=== PATIENT | male | born 1950 | race Caucasian/White ===

== ENCOUNTER 2017-12-30 21:53 | Emergency (ER) | payer OTHER, MEDICARE ==
--- OUTSIDE RECORDS SUMMARY | 2017-12-30 21:55 | XMS REPORT | Clinical Summary ---
:1950 Author Organization [facility] Address [address] [place] [address] Phone Care Team Providers Name Role Phone Unavailable Primary Care Provider Unavailable Allergies Active Allergy Reactions Severity Noted Date Comments Amantadine Analogues Other (See Comments) 12/07/2016 seizure Metronidazole Other (See Comments) 12/07/2016 hallucinations Current Medications Prescription Sig. Disp. Refills Start Date End Date Status albuterol (PROVENTIL) Take 2.5 mg by Active 2.5 mg /3 mL (0.083 %) nebulization every 6 nebulizer solution (six) hours as needed for Wheezing. bisacodyl (DULCOLAX, Place 10 mg rectally Active BISACODYL,) 10 mg daily. suppository carBAMazepine Take 400 mg by mouth 2 Active (TEGRETOL) 200 mg (two) times daily . tablet cetirizine (ZYRTEC) 5 Take 5 mg by mouth Active MG tablet daily. cyanocobalamin Inject 1,000 mcg Active (VITAMIN B-12) 1,000 intramuscularly once. mcg/mL injection finasteride (PROSCAR) Take 5 mg by mouth Active 5 mg tablet daily. gabapentin (NEURONTIN) Take 600 mg by mouth 2 Active 600 MG tablet (two) times daily With breakfast and lunch . gabapentin (NEURONTIN) Take 900 mg by mouth Active 300 MG capsule every evening With dinner and at bedtime. . ibuprofen Take 800 mg by mouth Active (ADVIL,MOTRIN) 800 MG every 8 (eight) hours tablet as needed for Pain. latanoprost (XALATAN) 1 drop nightly. Active 0.005 % ophthalmic solution levothyroxine Take 25 mcg by mouth Active (SYNTHROID, Every morning on an LEVOTHROID) 25 MCG empty stomach. tablet metoprolol (TOPROL-XL) Take 50 mg by mouth Active 50 MG 24 hr tablet daily. niacin 100 MG tablet Take 100 mg by mouth Active nightly . oxybutynin (DITROPAN) Take 5 mg by mouth 3 Active 5 MG tablet (three) times daily. brinzolamide-brimonidi Apply to eye(s). Active ne (SIMBRINZA) 1-0.2 % DrpS simvastatin (ZOCOR) 80 Take 80 mg by mouth Active MG tablet nightly. dimethyl fumarate Take by mouth 2 (two) Active (TECFIDERA) 240 mg times daily. CpDR carBAMazepine Take 200 mg by mouth Active (TEGRETOL) 200 mg daily Taken at 1pm tabletIndications: daily . Trigeminal Neuralgia gabapentin (NEURONTIN) Take 300 mg by mouth Active 300 MG capsule nightly. Active Problems Problem Noted Date SAH (subarachnoid hemorrhage) ([facility]) 12/10/2016 Vasovagal syncope 12/07/2016 Social History Tobacco Use Types Packs/Day Years Used Date Never Smoker Smokeless Tobacco: Never Used Alcohol Use Drinks/Week oz/Week Comments No Sex Assigned at Date Recorded Not on file Last Filed Vital Signs Not on file Plan of Treatment Not on file Results Not on fileafter 12/29/2016
--- OUTSIDE RECORDS SUMMARY | 2017-12-30 21:55 | XMS REPORT ---
:1950 [facility] Address [address] [place] [address] Dr. Garcia [address] [place] [id number] Care Team Providers Name Role Phone KARUNA KIRKPATRICK Unavailable Unavailable Problems This patient has no known problems. Allergies, Adverse Reactions, Alerts This patient has no known allergies or adverse reactions. Medications This patient has no known medications. Results Test Description Test Time Test Comments Text Results Atomic Results Result Comments MISCELLANEOUS LAB ORDER 2016-12-15 13:51:00 Test Item Value Reference Range Comments SCAN RESULT (test rbvc=[id number]) Result comments: STREPTOCOCCUS SPECIES DETECTED (Non-Strep Pneumo; Non-Group A or Group B) First line therapy: Vancomycin De-escalate based on susceptibilities Other organisms and resistance markers not contained in this PCR panel cannot be excluded and follow-up of traditional culture results is required. This sample was tested at the [facility] using the InfluitiveArray Blood Culture ID Panel. This test is FDA cleared for in vitro diagnostic use and has been verified and approved by the [facility] for clinical use. Reference Range: Not DetectedBLOOD [id number] 13:19:00 Test Item Value Reference Range Comments CULTURE (BEAKER) From Aerobic Bottle Only (test lqqj=8428) Alpha-hemolytic streptococcus GRAM STAIN RESULT From aerobic bottle (BEAKER) (test only: gram positive tvkl=1022) cocci in chains STREPTOCOCCUS SPECIES DETECTED(Non-Strep Pneumo; Non-Group A or Group B)First line therapy: VancomycinDe-escalate based on susceptibilitiesOther organisms and resistance markers not contained in this PCR panel cannot be excluded and follow-up of traditional culture results is required. This sample was tested at the [facility] using the InfluitiveArray Blood Culture ID Panel. This test is FDA cleared for in vitro diagnostic use and has been verified and approved by the [facility] for clinical use. Reference Range: Not DetectedBLOOD [id number] 19:00:00 Test Item Value Reference Range Comments CULTURE (BEAKER) (test mals=8590) No growth in 5 days BLOOD [id number] 19:00:00 Test Item Value Reference Range Comments CULTURE (BEAKER) (test befx=8935) No growth in 5 days CORTISOL,60 [id number] 15:41:00 Test Item Value Reference Range Comments CORTISOL BASELINE NETWORKED (BEAKER) (test 11.8 mcg/dL dlsh=7821) CORTISOL 30 MINUTE NETWORKED (BEAKER) (test 20.4 mcg/dL bzxy=8821) CORTISOL, 60 MINUTE (BEAKER) (test lifd=7326) 14.5 ug/dL ACTH STIMULATION TEST INTERPRETATION GUIDELINES(Synonyms: Cortrosyn Test, Cosyntropin or Corticotropin Stimulation Test)Adenocorticotropic hormone (ACTH) is a tropic hormone, made in the pituitary gland, which travels trhough the bloodstream and stimulates the cortex of the adrenal glands to release cortisol. Cortisol is a primary hormone, which aids the body's metabolism of fats, carbohydrates, and protein as well as sodium and potassium regulation.ACTH Stimulation Test: Exogenous administrationof biologically active ACTH stimulates the secretion of cortisol from the adrenal gland. This test is used to evaluate adrenal function by measuring cortisol levels at baseline and at 30 and 60 minutesafter the administration of 250 micrograms of cosyntropin (Cortrosyn). Patients who have received exogenous corticosteroids immediately prior to performing the ACTH Stimulation Test will often have elevated baseline cortisol levels, which may lead to erroneous interpretation of test results. The notable exception is with dexamethasone.Normal Response: An increase in cortisol after stimulation by ACTHis normal. Post-stimulation cortisol concentration should be greater than 20 mcg/dL or the rate of rise from baseline cortisol should be greater than or equal to 9 mcg/dL.Patients with sepsis or septicshock: According to a study by Caroline et al (JUAN J 2000,283( 8):1038-45), the ACTH Stimulation Test provides important prognostic information. This study defined 3 groups of patients with sepsis or septic shock : 1. Good Survival: Low basal cortisol (<or=34 mcg/dL) and high ACTH response (>9mcg/dL) 2. Intermediate Survival: Low basal cortisol (< 34 mcg/dL) and low response to ACTH (<or=9 mcg/dL) OR High basal cortisol (>34 mcg/dL) or high ACTH response (>9 mcg/dL) 3.Poor Survival: High basal cortisol (>34 mcg/dL) and low ACTH response (<or=9 mcg/dL) .Treatment of patients with relative adrenal dysfunction may be indicated based on test results and the clinical condition of the patient. Additional information, including treatment recommendations, is available in critically ill patients, approved by the Pharmacy, Nutrition, and Therapeutics Committee on 03/07/2004 and available through the Pharmacy Policy and Procedure Section on The Source.Do not run this test if systemic hydrocortisone, methylprednisolone, prednisolone or prednisone has been administered within the past 24 hours.Draw baseline cortisol level just prior to cosyntropin administration.Administer cosyntropin 1 mcg/mL via slow IV push over a period of 2 minutes. Flush the line after thedose to ensure the entire dose is delivered.Draw serum cortisol level 30 minutes after cosyntropin administration.Draw serum cortisol level 60 minutes after cosyntropin administration.CORTISOL,30 [id number] 15:40:00 Test Item Value Reference Range Comments CORTISOL BASELINE NETWORKED (BEAKER) (test 11.8 mcg/dL mzaz=2043) CORTISOL, 30 MINUTE (BEAKER) (test zpgl=3646) 20.4 ug/dL ACTH STIMULATION TEST INTERPRETATION GUIDELINES(Synonyms: Cortrosyn Test, Cosyntropin or Corticotropin Stimulation Test)Adenocorticotropic hormone (ACTH) is a tropic hormone, made in the pituitary gland, which travels trhough the bloodstream and stimulates the cortex of the adrenal glands to release cortisol. Cortisol is a primary hormone, which aids the body's metabolism of fats, carbohydrates, and protein as well as sodium and potassium regulation.ACTH Stimulation Test: Exogenous administrationof biologically active ACTH stimulates the secretion of cortisol from the adrenal gland. This test is used to evaluate adrenal function by measuring cortisol levels at baseline and at 30 and 60 minutesafter the administration of 250 micrograms of cosyntropin (Cortrosyn). Patients who have received exogenous corticosteroids immediately prior to performing the ACTH Stimulation Test will often have elevated baseline cortisol levels, which may lead to erroneous interpretation of test results. The notable exception is with dexamethasone.Normal Response: An increase in cortisol after stimulation by ACTHis normal. Post-stimulation cortisol concentration should be greater than 20 mcg/dL or the rate of rise from baseline cortisol should be greater than or equal to 9 mcg/dL.Patients with sepsis or septicshock: According to a study by Caroline et al (JUAN J 2000,283( 8):9712-45), the ACTH Stimulation Test provides important prognostic information. This study defined 3 groups of patients with sepsis or septic shock : 1. Good Survival: Low basal cortisol (<or=34 mcg/dL) and high ACTH response (>9mcg/dL) 2. Intermediate Survival: Low basal cortisol (< 34 mcg/dL) and low response to ACTH (<or=9 mcg/dL) OR High basal cortisol (>34 mcg/dL) or high ACTH response (>9 mcg/dL) 3.Poor Survival: High basal cortisol (>34 mcg/dL) and low ACTH response (<or=9 mcg/dL) .Treatment of patients with relative adrenal dysfunction may be indicated based on test results and the clinical condition of the patient. Additional information, including treatment recommendations, is available in critically ill patients, approved by the Pharmacy, Nutrition, and Therapeutics Committee on 03/07/2004 and available through the Pharmacy Policy and Procedure Section on The Source.Do not run this test if systemic hydrocortisone, methylprednisolone, prednisolone or prednisone has been administered within the past 24 hours.Draw baseline cortisol level just prior to cosyntropin administration.Administer cosyntropin 1 mcg/mL via slow IV push over a period of 2 minutes. Flush the line after thedose to ensure the entire dose is delivered.Draw serum cortisol level 30 minutes after cosyntropin administration.Draw serum cortisol level 60 minutes after cosyntropin administration.CORTISOL,[id number] 11:51:00 Test Item Value Reference Range Comments CORTISOL, BASELINE (CIARA) (test friw=9038) 11.8 ug/dL ACTH STIMULATION TEST INTERPRETATION GUIDELINES(Synonyms: Cortrosyn Test, Cosyntropin or Corticotropin Stimulation Test)Adenocorticotropic hormone (ACTH) is a tropic hormone, made in the pituitary gland, which travels trhough the bloodstream and stimulates the cortex of the adrenal glands to release cortisol. Cortisol is a primary hormone, which aids the body's metabolism of fats, carbohydrates, and protein as well as sodium and potassium regulation.ACTH Stimulation Test: Exogenous administrationof biologically active ACTH stimulates the secretion of cortisol from the adrenal gland. This test is used to evaluate adrenal function by measuring cortisol levels at baseline and at 30 and 60 minutesafter the administration of 250 micrograms of cosyntropin (Cortrosyn). Patients who have received exogenous corticosteroids immediately prior to performing the ACTH Stimulation Test will often have elevated baseline cortisol levels, which may lead to erroneous interpretation of test results. The notable exception is with dexamethasone.Normal Response: An increase in cortisol after stimulation by ACTHis normal. Post-stimulation cortisol concentration should be greater than 20 mcg/dL or the rate of rise from baseline cortisol should be greater than or equal to 9 mcg/dL.Patients with sepsis or septicshock: According to a study by Caroline et al (JUAN J 2000,283( 8):9727-45), the ACTH Stimulation Test provides important prognostic information. This study defined 3 groups of patients with sepsis or septic shock : 1. Good Survival: Low basal cortisol (<or=34 mcg/dL) and high ACTH response (>9mcg/dL) 2. Intermediate Survival: Low basal cortisol (< 34 mcg/dL) and low response to ACTH (<or=9 mcg/dL) OR High basal cortisol (>34 mcg/dL) or high ACTH response (>9 mcg/dL) 3.Poor Survival: High basal cortisol (>34 mcg/dL) and low ACTH response (<or=9 mcg/dL) .Treatment of patients with relative adrenal dysfunction may be indicated based on test results and the clinical condition of the patient. Additional information, including treatment recommendations, is available in critically ill patients, approved by the Pharmacy, Nutrition, and Therapeutics Committee on 03/07/2004 and available through the Pharmacy Policy and Procedure Section on The Source.Do not run this test if systemic hydrocortisone, methylprednisolone, prednisolone or prednisone has been administered within the past 24 hours.Draw baseline cortisol level just prior to cosyntropin administration.Administer cosyntropin 1 mcg/mL via slow IV push over a period of 2 minutes. Flush the line after thedose to ensure the entire dose is delivered.Draw serum cortisol level 30 minutes after cosyntropin administration.Draw serum cortisol level 60 minutes after cosyntropin administration.URINE [id number] 10:21:00 Test Item Value Reference Range Comments CULTURE (BEAKER) (test oaig=1137) No growth RAD, CHEST, 1 VIEW, NON [id number] 08:44:00Reason for exam:->pnaShould this be performed at the bedside?->YesFINAL REPORT INDICATION: pna COMPARISON: None. TECHNIQUE: Chest radiograph, single view, portable technique. FINDINGS / IMPRESSION: There is no evidence of pneumonia or pulmonaryedema. Cardiac and mediastinal contours are unremarkable. No pleural effusion or pneumothorax is demonstrated. Osseous structures are unremarkable. In summary, no evidence of acute pulmonary or cardiacabnormality. Signed: Yohannes Ulrich MDReport Verified Date/Time: 12/09/2016 08:44:43 Reading Location: [facility] Diagnostic Imaging Reading Room [place] [address] [id number] 08:08:00 Test Item Value Reference Range Comments MAGNESIUM (BEAKER) (test jemq=364) 1.9 mg/dL 1.6-2.6 BASIC METABOLIC [id number] 08:08:00 Test Item Value Reference Range Comments SODIUM (BEAKER) (test 133 meq/L 136-145 ogkx=849) POTASSIUM (BEAKER) (test 3.9 meq/L 3.5-5.1 kkww=094) CHLORIDE (BEAKER) (test 100 meq/L 98-107 ewst=179) CO2 (BEAKER) (test 27 meq/L 22-29 fucn=184) BLOOD UREA NITROGEN 14 mg/dL 7-21 (BEAKER) (test evqm=138) CREATININE (BEAKER) (test 0.60 mg/dL 0.57-1.25 vuhs=733) GLUCOSE RANDOM (BEAKER) 90 mg/dL 70-105 (test doob=603) CALCIUM (BEAKER) (test 8.8 mg/dL 8.4-10.2 ohsj=162) EGFR (BEAKER) (test 135 mL/min/1.73 sq m ESTIMATED GFR IS NOT zwak=2244) ACCURATE CREATININE CLEARANCE IN PREDICTING GLOMERULAR FILTRATION RATE. ESTIMATED GFR IS NOT APPLICABLE FOR DIALYSIS PATIENTS. [id number] 06:44:00 Test Item Value Reference Range Comments CORTISOL, TOTAL (BEAKER) (test syyf=0499) 6.2 ug/dL 3.7-19.4 CALCIUM, [id number] 06:16:00 Test Item Value Reference Range Comments CALCIUM IONIZED (BEAKER) (test zyww=530) 0.93 mmol/L 1.12-1.27 PH, BLOOD (BEAKER) (test hwvu=7808) 7.50 EEG AWAKE AND [id number] 17:34:00Reason for exam:->SyncopeDATE OF EE12-08-2016 DATE OF REPORT: 12-08-2016 ACC: [id number] Start time: 12: 49 Stoptime: 13:10 ICD-10: R55 CPT Code: 14144 HISTORY: recurrent syncopal episodes MEDICATIONS THAT COULDAFFECT EEG: TECHNICAL SUMMARY: This is a digital EEG recorded with 32 input channels on a [employer] system and then reviewed with bipolar and referential montages using the modified combinatorial system nomenclature. DESCRIPTION OF RECORD: During the maximally alert state a 9-10 Hz posterior dominant rhythm was seen that was symmetric, reactive to eye opening and well regulated. More anteriorly, low voltage frontocentral beta predominated. Drowsiness was characterized by alpha attenuation andincreased frontocentral theta, vertex sharp transients and POSTS. Stage 2 sleep was reached characterized by symmetric sleep spindles and K-complexes. HV: Hyperventilation was not performed. PHOTIC STIMULATION: Photic Stimulation was not done. IMPRESSION: Normal EEG awake and asleep. Cristina Dent MD Neurophysiology Fellow PGY5 Jake Fields MD Neurophysiology Attending (MANUAL DIFFERENTIAL)2016-12-08 10:20:00 Test Item Value Reference Range Comments NEUTROPHILS - REL (DIFF) (BEAKER) (test sfjx=3340) 69 % LYMPHOCYTES - REL (DIFF) (BEAKER) (test stfp=6609) 23 % MONOCYTES - REL (DIFF) (BEAKER) (test fdyd=2200) 7 % BANDS - REL (DIFF) (BEAKER) (test uyqz=2352) 1 % 0-10 NEUTROPHILS - ABS (DIFF) (BEAKER) (test pwzc=5059) 1.86 K/ L 1.80-8.00 LYMPHOCYTES - ABS (DIFF) (BEAKER) (test ducv=2454) 0.62 K/ L 1.48-4.50 MONOCYTES - ABS (DIFF) (BEAKER) (test amgg=6623) 0.19 K/ L 0.00-1.30 BANDS-ABS (DIFF) (BEAKER) (test ijni=3317) 0.0 K/ L 0.0-0.8 TOTAL COUNTED (BEAKER) (test jzhi=9146) 100 BANDS + SEGMENTED NEUTROPHILS (BEAKER) (test 1.89 oobh=7677) WBC MORPHOLOGY (BEAKER) (test xhwg=444) Normal RBC MORPHOLOGY (BEAKER) (test vfrq=132) Normal LARGE PLT(BEAKER) (test eovl=6495) Present CALCIUM, [id number] 07:03:00 Test Item Value Reference Range Comments CALCIUM IONIZED (BEAKER) (test ticd=636) 1.14 mmol/L 1.12-1.27 PH, BLOOD (BEAKER) (test vyuh=0172) 7.37 [id number] 07:01:00 Test Item Value Reference Range Comments MAGNESIUM (BEAKER) (test dinf=648) 2.0 mg/dL 1.6-2.6 BASIC METABOLIC [id number] 07:01:00 Test Item Value Reference Range Comments SODIUM (BEAKER) (test 137 meq/L 136-145 knsi=746) POTASSIUM (BEAKER) (test 4.0 meq/L 3.5-5.1 aldl=993) CHLORIDE (BEAKER) (test 102 meq/L 98-107 quvi=612) CO2 (BEAKER) (test 28 meq/L 22-29 rorb=167) BLOOD UREA NITROGEN 12 mg/dL 7-21 (BEAKER) (test xulv=999) CREATININE (BEAKER) (test 0.61 mg/dL 0.57-1.25 fiuo=717) GLUCOSE RANDOM (BEAKER) 85 mg/dL 70-105 (test azma=113) CALCIUM (BEAKER) (test 9.0 mg/dL 8.4-10.2 gemu=513) EGFR (BEAKER) (test 132 mL/min/1.73 sq m ESTIMATED GFR IS NOT kvaz=2647) ACCURATE CREATININE CLEARANCE IN PREDICTING GLOMERULAR FILTRATION RATE. ESTIMATED GFR IS NOT APPLICABLE FOR DIALYSIS PATIENTS. CBC W/PLT COUNT & AUTO [id number] 06:30:00 Test Item Value Reference Range Comments WHITE BLOOD CELL COUNT (BEAKER) (test uwfe=453) 2.7 K/ L 3.5-10.5 RED BLOOD CELL COUNT (BEAKER) (test nhvq=953) 3.90 M/ L 4.63-6.08 HEMOGLOBIN (BEAKER) (test alja=989) 12.6 GM/DL 13.7-17.5 HEMATOCRIT (BEAKER) (test osun=385) 37.5 % 40.1-51.0 MEAN CORPUSCULAR VOLUME (BEAKER) (test uusz=971) 96.2 fL 79.0-92.2 MEAN CORPUSCULAR HEMOGLOBIN (BEAKER) (test 32.3 pg 25.7-32.2 suaz=073) MEAN CORPUSCULAR HEMOGLOBIN CONC (BEAKER) (test 33.6 GM/DL 32.3-36.5 ghcd=053) RED CELL DISTRIBUTION WIDTH (BEAKER) (test 13.0 % 11.6-14.4 kuzl=161) PLATELET COUNT (BEAKER) (test rkwp=188) 126 K/CU MM 150-450 MEAN PLATELET VOLUME (BEAKER) (test bgpi=220) 10.6 fL 9.4-12.4 NUCLEATED RED BLOOD CELLS (BEAKER) (test 0 /100 WBC 0-0 zqep=681) IMMATURE GRANULOCYTES-RELATIVE PERCENT (BEAKER) 0 % 0-1 (test lzol=5182) URINALYSIS W/ [id number] 17:47:00 Test Item Value Reference Range Comments COLOR (BEAKER) (test koxr=286) Light Yellow CLARITY (BEAKER) (test kycx=376) Clear SPECIFIC GRAVITY UA (BEAKER) (test zjvu=819) 1.032 1.001-1.035 PH UA (BEAKER) (test gqof=392) 7.0 5.0-8.0 PROTEIN UA (BEAKER) (test msua=817) Negative Negative GLUCOSE UA (BEAKER) (test cjvr=500) Negative Negative KETONES UA (BEAKER) (test sqkp=476) Negative Negative BILIRUBIN UA (BEAKER) (test uvol=059) Negative Negative BLOOD UA (BEAKER) (test bhrc=506) Negative Negative NITRITE UA (BEAKER) (test jdze=682) Negative Negative LEUKOCYTE ESTERASE UA (BEAKER) (test dhpm=707) Negative Negative UROBILINOGEN UA (BEAKER) (test vbas=824) 0.2 mg/dL 0.2-1.0 RBC UA (BEAKER) (test oiol=250) 2 /HPF WBC UA (BEAKER) (test bhvf=762) 6 /HPF BACTERIA (BEAKER) (test ajtk=165) Rare SOURCE(BEAKER) (test qspp=9336) Urine, Voided CT, CAROTID, [id number] 16:48:00FINAL REPORT CTA head and neck with contrast INDICATION: Stroke, confusion, delirium TECHNIQUE: Axial noncontrast CT images of the head were obtained. Subsequently, axial intravenous contrast enhanced CTA images of the head and neck were obtained. Multiplanar and 3-D volume rendered reconstruction images were generated on a separate workstation for better delineation of the vascular anatomy. This exam was performed according to our departmental dose optimization program which includes automated exposure control, adjustment of the mA and/or kV according to patient size and/or use of iterative reconstruction technique. COMPARISON: CT head 12/07/2016 FINDINGS: CTA neck:There is normal variant bovine aortic arch configuration. There is atherosclerotic plaque in the arch and proximal great vessels with mild right subclavian artery origin stenosis, suboptimally depicted due to streak artifacts from venous contrast. There is scattered plaque in the common carotid arteries with mild stenosis distally on the left. There is carotid bifurcation and proximal cervical ICA atherosclerosis. There is mild bilateral proximal cervical ICA stenosis, up to 20-30% on the right and 20% on theleft by NASCET criteria. No tandem ICA stenoses are seen distally. The proximal external carotid arteries are unremarkable. The left vertebral artery is larger than the right with mild to moderate right vertebral artery origin and left vertebral artery V1 segment stenoses. Otherwise no significant vertebral artery stenoses are seen. CTA head:There are venous contamination artifacts. There are suspected moderate left and mild to moderate right mid OUTPATIENT CASE MANAGER stenoses and mild left intradural vertebral artery stenosis. There is mild carotid siphon atherosclerosis. Otherwise no high grade proximal [place] stenosis or major branch occlusion is seen. There is no evident saccular aneurysm. Other findings: The imaged lungs demonstrate bilateral ground glass opacities which could reflect edema or atypical pneumonitis. Multilevel cervical spine degenerative changes are present without high grade canal stenosis. IMPRESSION: 1. Mild right greater than left proximal cervical ICA stenosis, up to 20-30% onthe right by NASCET criteria. 2. Mild to moderate right vertebral artery origin and left vertebral artery V1 segment stenoses. 3. Suspected moderate left and mild to moderate right mid OUTPATIENT CASE MANAGER stenoses, and other lesser intracranial atherosclerotic changes as discussed. 4. Nonspecific bilateral ground glass lung opacities, which could reflect edema or atypical pneumonitis. Advise correlation with chest imaging. Signed: Aaron Moulton MDReport Verified Date/Time: 12/07/2016 16:48:08 Reading Location: [address] Neuro Reading Room [facility] [id number] 16:48:00FINAL REPORT CTA head and neck with contrast INDICATION: Stroke, confusion, delirium TECHNIQUE: Axial noncontrast CT images of the head were obtained. Subsequently, axial intravenous contrast enhanced CTA images of the head and neck were obtained. Multiplanar and 3-D volume rendered reconstruction images were generated on a separate workstation for better delineation of the vascular anatomy. This exam was performed according to our departmental dose optimization program which includes automated exposure control, adjustment of the mA and/or kV according to patient size and/or use of iterative reconstruction technique. COMPARISON: CT head 12/07/2016 FINDINGS: CTA neck: There is normal variant bovine aortic arch configuration. There is atherosclerotic plaque in the arch and proximal great vessels with mild right subclavian artery origin stenosis, suboptimally depicted due to streak artifacts from venous contrast. There is scattered plaque in the common carotid arteries with mild stenosis distally on the left. There is carotid bifurcation and proximal cervical ICA atherosclerosis. There is mild bilateral proximal cervical ICA stenosis, up to 20-30% on the right and 20% on theleft by NASCET criteria. No tandem ICA stenoses are seen distally. The proximal external carotid arteries are unremarkable. The left vertebral artery is larger than the right with mild to moderate right vertebral artery origin and left vertebral artery V1 segment stenoses. Otherwise no significant vertebral artery stenoses are seen. CTA head:There are venous contamination artifacts. There are suspected moderate left and mild to moderate right mid OUTPATIENT CASE MANAGER stenoses and mild left intradural vertebral artery stenosis. There is mild carotid siphon atherosclerosis. Otherwise no high grade proximal [place] stenosis or major branch occlusion is seen. There is no evident saccular aneurysm. Other findings: The imaged lungs demonstrate bilateral ground glass opacities which could reflect edema or atypical pneumonitis. Multilevel cervical spine degenerative changes are present without high grade canal stenosis. IMPRESSION: 1. Mild right greater than left proximal cervical ICA stenosis, up to 20-30% onthe right by NASCET criteria. 2. Mild to moderate right vertebral artery origin and left vertebral artery V1 segment stenoses. 3. Suspected moderate left and mild to moderate right mid OUTPATIENT CASE MANAGER stenoses, and other lesser intracranial atherosclerotic changes as discussed. 4. Nonspecific bilateral ground glass lung opacities, which could reflect edema or atypical pneumonitis. Advise correlation with chest imaging. Signed: Aaron Moulton MDRort Verified Date/Time: 12/07/2016 16:48:08 Reading Location: [address] Neuro Reading Room CREATINE KINASE (CK), TOTAL AND [id number] 14:16:00 Test Item Value Reference Range Comments CREATINE KINASE TOTAL (BEAKER) (test nivd=331) 85 U/L 29-200 CREATINE KINASE-MB (BEAKER) (test btlv=082) 3.5 ng/mL 0.0-6.6 CREATINE KINASE-MB INDEX (BEAKER) (test yqlr=350) 4.1 % CK-MB Reference Range:<6.7 Normal6.7-10.0 Borderline>10.0 AbnormalTROPONIN [id number] 14:16:00 Test Item Value Reference Range Comments TROPONIN I (BEAKER) (test qttl=139) < ng/mL 0.00-0.03 Troponin I (TnI) levels must be interpreted in the context of the presenting symptoms and the clinical findings. Elevated TnI levels indicate myocardial damage, but are not specific for ischemic heart disease. Elevated TnI levels are seen in patients with other cardiac conditions (including myocarditis and congestive heart failure), and slight TnI elevations occur in patients with other conditions, including sepsis, renal failure, acidosis, acute neurological disease, and persistent tachyarrhythmia.[id number] 14:09:00 Test Item Value Reference Range Comments MAGNESIUM (BEAKER) (test ycpt=749) 2.1 mg/dL 1.6-2.6 BASIC METABOLIC [id number] 14:09:00 Test Item Value Reference Range Comments SODIUM (BEAKER) (test 133 meq/L 136-145 chwv=368) POTASSIUM (BEAKER) (test 4.2 meq/L 3.5-5.1 gcmd=976) CHLORIDE (BEAKER) (test 98 meq/L 98-107 oqkh=332) CO2 (BEAKER) (test 28 meq/L 22-29 hlvu=772) BLOOD UREA NITROGEN 14 mg/dL 7-21 (BEAKER) (test xmeu=790) CREATININE (BEAKER) (test 0.75 mg/dL 0.57-1.25 xkqe=364) GLUCOSE RANDOM (BEAKER) 125 mg/dL 70-105 (test sakm=643) CALCIUM (BEAKER) (test 9.1 mg/dL 8.4-10.2 cjuv=005) EGFR (BEAKER) (test 104 mL/min/1.73 sq m ESTIMATED GFR IS NOT aigx=4221) ACCURATE CREATININE CLEARANCE IN PREDICTING GLOMERULAR FILTRATION RATE. ESTIMATED GFR IS NOT APPLICABLE FOR DIALYSIS PATIENTS. [id number] 13:58:00 Test Item Value Reference Range Comments PROTIME (BEAKER) (test xrts=734) 14.7 seconds 11.7-14.7 INR (BEAKER) (test vwwv=907) 1.2 <=5.9 PARTIAL THROMBOPLASTIN TIME (BEAKER) (test 23.4 seconds 22.5-36.0 yplw=639) RECOMMENDED COUMADIN/WARFARIN INR THERAPY RANGESSTANDARD DOSE: 2.0 - 3.0 Includes: PROPHYLAXIS forvenous thrombosis, systemic embolization; TREATMENT for venous thrombosis and/or pulmonary embolus.HIGH RISK: Target INR is 2.5-3.5 for patients with mechanical heart valves.CBC W/PLT COUNT & AUTO [id number] 13:52:00 Test Item Value Reference Range Comments WHITE BLOOD CELL COUNT (BEAKER) (test vhjj=692) 3.0 K/ L 3.5-10.5 RED BLOOD CELL COUNT (BEAKER) (test qprh=596) 3.71 M/ L 4.63-6.08 HEMOGLOBIN (BEAKER) (test jcxk=860) 12.0 GM/DL 13.7-17.5 HEMATOCRIT (BEAKER) (test hksi=045) 35.7 % 40.1-51.0 MEAN CORPUSCULAR VOLUME (BEAKER) (test wnuv=131) 96.2 fL 79.0-92.2 MEAN CORPUSCULAR HEMOGLOBIN (BEAKER) (test 32.3 pg 25.7-32.2 geje=687) MEAN CORPUSCULAR HEMOGLOBIN CONC (BEAKER) (test 33.6 GM/DL 32.3-36.5 jjer=428) RED CELL DISTRIBUTION WIDTH (BEAKER) (test 13.1 % 11.6-14.4 wgyv=060) PLATELET COUNT (BEAKER) (test gswv=172) 136 K/CU MM 150-450 MEAN PLATELET VOLUME (BEAKER) (test ufsh=297) 11.0 fL 9.4-12.4 NUCLEATED RED BLOOD CELLS (BEAKER) (test 0 /100 WBC 0-0 wlfc=544) NEUTROPHILS RELATIVE PERCENT (BEAKER) (test 75 % ngmm=154) LYMPHOCYTES RELATIVE PERCENT (BEAKER) (test 13 % kjfz=025) MONOCYTES RELATIVE PERCENT (BEAKER) (test 10 % etic=660) EOSINOPHILS RELATIVE PERCENT (BEAKER) (test 1 % hiqq=605) BASOPHILS RELATIVE PERCENT (BEAKER) (test 0 % hndf=369) NEUTROPHILS ABSOLUTE COUNT (BEAKER) (test 2.22 K/ L 1.78-5.38 ntzy=889) LYMPHOCYTES ABSOLUTE COUNT (BEAKER) (test 0.39 K/ L 1.32-3.57 sssw=796) MONOCYTES ABSOLUTE COUNT (BEAKER) (test 0.30 K/ L 0.30-0.82 gmmi=624) EOSINOPHILS ABSOLUTE COUNT (BEAKER) (test 0.02 K/ L 0.04-0.54 jxgi=103) BASOPHILS ABSOLUTE COUNT (BEAKER) (test 0.01 K/ L 0.01-0.08 eoiw=676) IMMATURE GRANULOCYTES-RELATIVE PERCENT (BEAKER) 0 % 0-1 (test kiqn=8795) POCT-GLUCOSE [id number] 13:46:00 Test Item Value Reference Range Comments POC-GLUCOSE METER (CIARA) 136 mg/dL 70-110 TESTED AT [facility] [address] (test mexo=3411) [facility] [address] [address], BRAIN/STROKE [id number] 13:28:00Reason for exam:->loss of consciousnessFINAL REPORT CT head without contrast INDICATION: Confusion, delirium, altered LOC TECHNIQUE: Axial noncontrast CT images through the head were obtained. Imaging was performed within 24 hours of arrival at the facility. This exam was performed according to our departmental dose optimization program which includes automated exposure control, adjustment of the mA and/or kV according to patient size and/or use of iterative reconstruction technique. COMPARISON: None available FINDINGS:There is no acute intracranial hemorrhage or mass effect. There is age indeterminate right villatoro radiata microvascular ischemia superimposed on other chronic appearing microvascular disease. No acute territorial infarct is evident on CT. Please note that CT is insensitive for early or small infarcts. Generalized volume loss and vascular calcifications are noted. There is no hydrocephalus. 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 There is minimal chronic sinus mucosal thickening. The mastoid air cells and orbits are unremarkable. There is mild parotid gland asymmetry. The calvarium is intact. IMPRESSION: No acute intracranial hemorrhage or mass effect. No specific CT findings of acute territorial infarct. Age indeterminate and chronic microvascular ischemia for which further characterization with MRI is suggested if there is no contraindication. Findings discussed with stroke neurology housestaff at 1:26 PM Signed: Aaron Moulton Verified Date/Time: 12/07/2016 13:28:57 Reading Location: [facility] B1 C013V Neuro Reading Room
--- OUTSIDE RECORDS SUMMARY | 2017-12-30 21:55 | XMS REPORT | Clinical Summary ---
:1950 Author Organization [facility] Address [address] [place] [address] Care Team Providers Name Role Phone Asked, No Pcp Primary Care Provider Unavailable Allergies Active Allergy Reactions Severity Noted Date Comments Amantadine Other (See Comments) 10/11/2015 seizure Metronidazole Other (See Comments) 10/11/2015 hallucinaions Current Medications Prescription Sig. Disp. Refills Start Date End Date Status carBAMazepine Take 200 mg by Active (TEGretol) 200 mg mouth 2 (two) tablet times a day. finasteride Take 5 mg by mouth Active (PROSCAR) 5 mg daily. tablet gabapentin Take 900 mg by Active (NEURONTIN) 300 MG mouth daily with capsule dinner. latanoprost Administer 1 drop Active (XALATAN) 0.005 % to both eyes ophthalmic solution nightly. levothyroxine Take 25 mcg by Active (SYNTHROID, mouth every LEVOTHROID) 25 MCG morning. tablet metoprolol tartrate Take 25 mg by Active (LOPRESSOR) 50 MG mouth every 12 tablet (twelve) hours. niacin 100 MG Take 750 mg by Active tablet mouth nightly. simvastatin (ZOCOR) Take 80 mg by Active 80 MG tablet mouth nightly. oxybutynin Take 5 mg by mouth Active (DITROPAN) 5 MG 3 (three) times a tablet day. bisacodyl Insert 10 mg into Active (DULCOLAX) 10 mg the rectum daily suppository as needed for constipation. albuterol Take 2.5 mg by Active (PROVENTIL) 2.5 mg nebulization every /3 mL (0.083 %) 4 (four) hours as nebulizer solution needed for shortness of breath. brinzolamide-brimon Apply 1 drop to Active idine (SIMBRINZA) eye 2 (two) times 1-0.2 % a day. Both eyes drops,suspension dimethyl fumarate Take 240 mg by Active (TECFIDERA) 240 mg mouth 2 (two) capsule,delayed times a day. release(DR/EC) ibuprofen Take 800 mg by Active (ADVIL,MOTRIN) 800 mouth 3 (three) MG tablet times a day as needed for mild pain. BABY ASPIRIN ORAL Take by mouth. Active amLODIPine Take 5 mg by mouth 1 06/23/2017 Active (NORVASC) 5 mg daily. tablet gabapentin Take 600 mg by 07/02/2017 Discontinued (NEURONTIN) 600 MG mouth daily. tablet gabapentin Take 600 mg by 07/02/2017 Discontinued (NEURONTIN) 600 MG mouth daily with tablet lunch. gabapentin Take 300 mg by 07/02/2017 Discontinued (NEURONTIN) 300 MG mouth nightly. capsule Active Problems Problem Noted Date CAD in [place] artery 07/02/2017 Stented coronary artery 07/02/2017 Subarachnoid bleed (HCC) 10/31/2016 Syncope 10/29/2016 Hypoxia 10/11/2015 Encounters Date Type Specialty Care Team Description 07/02/2017 Office Visit Cardiology Tremaine Pastor MD CAD in [place] artery (Primary Dx); Stented coronary artery after 12/29/2016 Social History Tobacco Use Types Packs/Day Years Used Date Former Smoker Smokeless Tobacco: Never Used Comments: stop smoking since 1982 Alcohol Use Drinks/Week oz/Week Comments Yes very seldom Sex Assigned at Date Recorded Not on file Last Filed Vital Signs Vital Sign Reading Time Taken Blood Pressure 166/88 07/02/2017 9:12 AM CDT Pulse 53 07/02/2017 9:12 AM CDT Temperature - - Respiratory Rate - - Oxygen Saturation - - Inhaled Oxygen Concentration - - Weight 78.5 kg (173 lb) 07/02/2017 9:12 AM CDT Height 170.2 cm (5' 7") 07/02/2017 9:12 AM CDT Body Mass Index 27.1 07/02/2017 9:12 AM CDT Plan of Treatment Health Maintenance Due Date Last Done Comments COLON CANCER SCREENING 12/24/1999 SHINGRIX VACCINE (#1) 12/24/1999 ZOSTER VACCINE 2009 PNEUMOCOCCAL POLYSACCHARIDE VACCINE AGE 65 AND OVER 2014 PNEUMOCOCCAL-13 2014 INFLUENZA VACCINE 10/27/2017 Implants Implanted Type Area Wax Cutter Device Identifier Expiration Date Model / Serial / Lot Stents X5 Procedures Procedure Name Priority Date/Time Associated Diagnosis Comments ECG 12-LEAD Routine 07/02/2017 9:14 AM CAD in [place] artery Results for this CDT procedure are in the results section. after 12/29/2016 Results ECG 12 lead (07/02/2017 9:14 AM) Ventricular rate 51 [facility] Atrial rate 51 [facility] AR interval 210 [facility] QRSD interval 96 [facility] QT interval 416 [facility] QTC interval 383 [facility] P axis 1 31 [facility] QRS axis 1 9 [facility] T wave axis 69 [facility] EKG impression Sinus bradycardia with 1st degree AV [facility] block-Otherwise normal ECG-In automated comparison with ECG of 30-OCT-2016 07:03,-AR interval has increased- Performing Organization Address City/State/Zipcode Phone Number [facility] [address] [place] [address] after 12/29/2016 Insurance Payer Benefit Plan / Group Subscriber ID Type Phone Address MEDICARE MEDICARE PART A AND B xxxxxxxxxx Medicare [place], [place] A[place] AARP SUPPLEMENT xxxxxxxxx Commercial Home: [address] [phone] [address]
[2017-12-30 23:52] LABS: Urine Blood 2+ (NEG); Urine Glucose NEGATIVE (NEG); Urine Protein 2+ (NEG)
[2017-12-31 00:04] LABS: Urine Culture Reflex Order NOT NEEDED
[2017-12-31 00:05] LABS: Urine Bacteria >50 /HPF (NONE SEEN)
--- NOTE | 2017-12-31 00:08 | ER ---
Nurse's Notes [facility] Name: Eleuterio Baird Age: 67 yrs Sex: Male : 1950 Arrival Date: 12/30/2017 Time: 21:57 Bed 20 Private MD: Maddie Parham C Diagnosis: Urinary tract infection, site not specified Presentation: 12/30 22:01 Presenting complaint: Patient states: Fever today with lightheadedness. Transition of aj care: patient was not received from another setting of care. Onset of symptoms was December 30, 2017. Risk Assessment: Do you want to hurt yourself or someone else? Patient reports no desire to harm self or others. Initial Sepsis Screen: Does the patient meet any 2 criteria? No. Patient's initial sepsis screen is negative. Does the patient have a suspected source of infection? No. Patient's initial sepsis screen is negative. Care prior to arrival: None. 22:01 Method Of Arrival: Wheelchair aj 22:01 Acuity: SALOME 3 aj Triage Assessment: 22:02 General: Appears in no apparent distress. comfortable, Behavior is calm, cooperative, aj appropriate for age. Pain: Denies pain. Neuro: Level of Consciousness is awake, alert, obeys commands, Oriented to person, place, time, situation, Appropriate for age. Respiratory: Airway is patent Respiratory effort is even, unlabored, Respiratory pattern is regular, symmetrical. : Reports burning with urination. Derm: Skin is intact, is healthy with good turgor, Skin is pink, warm \T\ dry. normal. Historical: - Allergies: 22:02 amantadine HCl; aj 22:02 Flagyl; aj - PMHx: 22:02 heart stents x5; MS; Myocardial infarction; Pneumonia; aj - PSHx: 22:02 neurogenic bladder; aj - Immunization history:: Adult Immunizations up to date. - Social history:: Smoking status: Patient/guardian denies using tobacco. - Ebola Screening: : Patient negative for fever greater than or equal to 101.5 degrees Fahrenheit, and additional compatible Ebola Virus Disease symptoms Patient denies exposure to infectious person Patient denies travel to an Ebola-affected area in the 21 days before illness onset No symptoms or risks identified at this time. Screenin:56 Abuse screen: Denies threats or abuse. Denies injuries from another. Nutritional mg2 screening: No deficits noted. Tuberculosis screening: No symptoms or risk factors identified. Fall Risk Gait- Weak (10 pts.). Assessment: 23:56 General: Appears in no apparent distress. comfortable, Behavior is calm, cooperative. mg2 Pain: Denies pain. Neuro: Level of Consciousness is awake, alert, obeys commands, Oriented to person, place, time, situation. Cardiovascular: Capillary refill < 3 seconds Patient's skin is warm and dry. Respiratory: Airway is patent Respiratory effort is even, unlabored, Respiratory pattern is regular, symmetrical. GI: No signs and/or symptoms were reported involving the gastrointestinal system. : No signs and/or symptoms were reported regarding the genitourinary system. EENT: No signs and/or symptoms were reported regarding the EENT system. Derm: Skin is intact, is healthy with good turgor, Skin is pink, warm \T\ dry. normal. Musculoskeletal: No signs and/or symptoms reported regarding the musculoskeletal system. Vital Signs: 22:02 BP 129 / 60; Pulse 81; Resp 19; Temp 98.8; Pulse Ox 96% on R/A; Weight 81.65 kg; Height aj 5 ft. 7 in. (170.18 cm); 12/31 00:25 BP 122 / 65; Pulse 82; Resp 18; Pulse Ox 100% on R/A; Pain 0/10; mg2 12/30 22:02 Body Mass Index 28.19 (81.65 kg, 170.18 cm) ED Course: 12/30 21:57 Patient arrived in ED. do 21:58 Maddie Parham MD is Private Physician. do 22:02 Triage completed. aj 22:02 Arm band placed on left wrist. Patient placed in an exam room. aj 22:06 Joslyn Asher FNP-C is PHCP. snw 22:06 Timothy Wong MD is Attending Physician. snw 22:10 Barry Flynn, HARPER is Primary Nurse. mg2 22:22 Chest Pa And Lat (2 Views) XRAY In Process Unspecified. EDMS 23:08 Urine Microscopic Only Sent. ds4 23:08 Urine Culture Sent. ds4 23:58 Patient has correct armband on for positive identification. Pulse ox on. NIBP on. mg2 12/31 00:07 Maddie Parham MD is Referral Physician. snw 00:37 No provider procedures requiring assistance completed. Patient did not have IV access mg2 during this emergency room visit. Administered Medications: 00:19 Drug: Rocephin (cefTRIAXone) 1 grams Route: IM; Site: right gluteus; mg2 00:25 Follow up: Response: No adverse reaction mg2 Outcome: 00:07 Discharge ordered by MD. perdomo 00:37 Discharged to home via wheelchair. mg2 00:37 Condition: stable 00:37 Discharge instructions given to patient, family, Instructed on discharge instructions, follow up and referral plans. medication usage, Demonstrated understanding of instructions, follow-up care, medications, Prescriptions given X 1. 00:38 Patient left the ED. mg2 Addendum: 01/02/2018 08:29 Addendum: Culture Results: Positive urine culture. No further action required. Bacteria h b sensitive to prescribed antibiotic. Signatures: Dispatcher [employer] EDSherlyn Zavala, RN RN Joslyn Lee, ARCHITECTURAL ENGINEER-C ARCHITECTURAL ENGINEER-Csnw Zane Vazquez ds4 Danielle Price Heather, RN RN Barry Flynn RN RN mg2
--- NOTE | 2017-12-31 00:08 | EDPHYS ---
Physician Documentation [facility] Name: Eleuterio Baird Age: 67 yrs Sex: Male : 1950 Arrival Date: 12/30/2017 Time: 21:57 Bed 20 Private MD: Maddie Parham C ED Physician Timothy Wong HPI: 12/30 22:42 This 67 yrs old Male presents to ER via Wheelchair with complaints of Fever, snw Blood Pressure Problem. 22:42 The patient reports fever, that was measured at 102.7 degrees Fahrenheit. Onset: The snw symptoms/episode began/occurred suddenly, today. Associated signs and symptoms: Pertinent positives: none. Severity of symptoms: At their worst the symptoms were moderate. The patient has experienced similar episodes in the past. The patient has been recently seen by a physician: the patient's primary care provider, Dr. Parham yesterday, check up. Historical: - Allergies: 22:02 amantadine HCl; aj 22:02 Flagyl; aj - PMHx: 22:02 heart stents x5; MS; Myocardial infarction; Pneumonia; aj - PSHx: 22:02 neurogenic bladder; aj - Immunization history:: Adult Immunizations up to date. - Social history:: Smoking status: Patient/guardian denies using tobacco. - Ebola Screening: : Patient negative for fever greater than or equal to 101.5 degrees Fahrenheit, and additional compatible Ebola Virus Disease symptoms Patient denies exposure to infectious person Patient denies travel to an Ebola-affected area in the 21 days before illness onset No symptoms or risks identified at this time. ROS: 22:41 Eyes: Negative for injury, pain, redness, and discharge, ENT: Negative for injury, snw pain, and discharge, Neck: Negative for injury, pain, and swelling, Cardiovascular: Negative for chest pain, palpitations, and edema, Respiratory: Negative for shortness of breath, cough, wheezing, and pleuritic chest pain, Abdomen/GI: Negative for abdominal pain, nausea, vomiting, diarrhea, and constipation, Back: Negative for injury and pain, MS/Extremity: Negative for injury and deformity, Skin: Negative for injury, rash, and discoloration, Neuro: Negative for headache, weakness, numbness, tingling, and seizure. 22:41 Constitutional: Positive for fever. 22:41 : Positive for foul smelling urine, beginning last pm. Pt denies vomiting, pain. Exam: 22:40 Constitutional: This is a well developed, well nourished patient who is awake, alert, snw and in no acute distress. Head/Face: Normocephalic, atraumatic. Eyes: Pupils equal round and reactive to light, extra-ocular motions intact. Lids and lashes normal. Conjunctiva and sclera are non-icteric and not injected. Cornea within normal limits. Periorbital areas with no swelling, redness, or edema. ENT: Nares patent. No nasal discharge, no septal abnormalities noted. Tympanic membranes are normal and external auditory canals are clear. Oropharynx with no redness, swelling, or masses, exudates, or evidence of obstruction, uvula midline. Mucous membranes moist. Neck: Trachea midline, no thyromegaly or masses palpated, and no cervical lymphadenopathy. Supple, full range of motion without nuchal rigidity, or vertebral point tenderness. No Meningismus. Chest/axilla: Normal chest wall appearance and motion. Nontender with no deformity. No lesions are appreciated. Cardiovascular: Regular rate and rhythm with a normal S1 and S2. No gallops, murmurs, or rubs. Normal PMI, no JVD. No pulse deficits. Respiratory: Lungs have equal breath sounds bilaterally, clear to auscultation and percussion. No rales, rhonchi or wheezes noted. No increased work of breathing, no retractions or nasal flaring. Abdomen/GI: Soft, non-tender, with normal bowel sounds. No distension or tympany. No guarding or rebound. No evidence of tenderness throughout. Back: No spinal tenderness. No costovertebral tenderness. Full range of motion. MS/ Extremity: Pulses equal, no cyanosis. Neurovascular intact. Full, normal range of motion. Neuro: Awake and alert, GCS 15, oriented to person, place, time, and situation. Cranial nerves II-XII grossly intact. Motor strength 5/5 in all extremities. Sensory grossly intact. Cerebellar exam normal. Normal gait. Psych: Awake, alert, with orientation to person, place and time. Behavior, mood, and affect are within normal limits. 22:40 Skin: right lower extremity below the knee is a different temperature than the rest of his body. Spouse and pt state this is totally normal for pt. Pt denies pain, + lower extremity pulses. Vital Signs: 22: BP 129 / 60; Pulse 81; Resp 19; Temp 98.8; Pulse Ox 96% on R/A; Weight 81.65 kg; Height aj 5 ft. 7 in. (170.18 cm); 12/31 00:25 BP 122 / 65; Pulse 82; Resp 18; Pulse Ox 100% on R/A; Pain 0/10; mg2 12/30 22:02 Body Mass Index 28.19 (81.65 kg, 170.18 cm) aj MDM: 12/30 22: Patient medically screened. yaya 12/31 00:07 Data reviewed: vital signs, nurses notes. Data interpreted: Pulse oximetry: on room air snw is 96 %. Interpretation: acceptable. Counseling: I had a detailed discussion with the patient and/or guardian regarding: the historical points, exam findings, and any diagnostic results supporting the discharge/admit diagnosis, lab results, radiology results, the need for outpatient follow up, to return to the emergency department if symptoms worsen or persist or if there are any questions or concerns that arise at home. Special discussion: Based on the history and exam findings, there is no indication for further emergent testing or inpatient evaluation. I discussed with the patient/guardian the need to see the primary care provider for further evaluation of the symptoms. 12/30 22:07 Order name: Urine Culture snw 12/30 22:07 Order name: Urine Microscopic Only; Complete Time: 00:06 snw 12/30 22:07 Order name: Urine Dipstick-Ancillary (obtain specimen); Complete Time: 23:08 snw 12/30 22:07 Order name: Chest Pa And Lat (2 Views) XRAY w 12/30 23:09 Order name: Urine Dipstick--Ancillary (enter results); Complete Time: 00:06 ds4 Administered Medications: 00:19 Drug: Rocephin (cefTRIAXone) 1 grams Route: IM; Site: right gluteus; mg2 00:25 Follow up: Response: No adverse reaction mg2 Disposition: 06:37 Co-signature as Attending Physician, Timothy Wong MD I agree with the assessment and [facility] plan of care. Disposition: 12/31/17 00:07 Discharged to Home. Impression: Urinary tract infection, site not specified. - Condition is Stable. - Discharge Instructions: Fever, Adult, Urinary Tract Infection, Adult, Rehydration, Adult. - Prescriptions for cefpodoxime 200 mg Oral Tablet - take 1 tablet by ORAL route every 12 hours for 10 days with food; 20 tablet. - Medication Reconciliation Form, Thank You Letter, Antibiotic Education, Prescription Opioid Use form. - Follow up: Maddie Parham MD; When: 1 - 2 days; Reason: Recheck today's complaints, Continuance of care, Re-evaluation by your physician. Follow up: Emergency Department; When: As needed; Reason: Worsening of condition. Signatures: Dispatcher [employer] EDMS Sherlyn Liao RN RN Timothy Cohen MD MD cha Therrien, Shelly, BATH ATTENDANT-C BATH ATTENDANT-Csnw Barry Flynn RN RN mg2 Corrections: (The following items were deleted from the chart) 00:38 00:07 12/31/2017 00:07 Discharged to Home. Impression: Urinary tract infection, site mg2 not specified. Condition is Stable. Forms are Medication Reconciliation Form, Thank You Letter, Antibiotic Education, Prescription Opioid Use. Follow up: Maddie Parham; When: 1 - 2 days; Reason: Recheck today's complaints, Continuance of care, Re-evaluation by your physician. Follow up: Emergency Department; When: As needed; Reason: Worsening of condition. snw
[2017-12-31] MEDS ORDERED: CEFTRIAXONE 1000 MG/VIAL ONE (00:16)
[2017-12-31] MEDS ORDERED: WATER FOR INJ,STERILE 10 ML ONE (00:16)
[2017-12-31 00:41] VITALS: TEMP 98.8
[2017-12-31 00:43] VITALS: BP 122/65; O2SAT 100
--- NOTE | 2017-12-31 08:13 | RAD REPORT ---
EXAM DESCRIPTION: Julieta Fabian And Lat (2 Views)12/30/2017 10:24 pm CLINICAL HISTORY: Cough COMPARISON: May 2017 FINDINGS: Mild interstitial opacities are present within the lingula. The right lung appears clear. The heart is normal size IMPRESSION: Mild interstitial opacities within the lingula may indicate an atypical pneumonia or pne umonitis
== END 2017-12-31 00:38 | disposition home or self-care (01) ==
LOC: ER 21:53
DX: N39.0 Urinary tract infection, site not specified (principal); I25.2 Old myocardial infarction; Z88.8 Allergy status to other drugs, medicaments and biological substances
CPT/HCPCS: 71046; 81003; 81015; 87077; 87086; 87088; 87186; 96372; 99284

== ENCOUNTER 2018-04-04 21:55 | Emergency (ER) | payer OTHER, MEDICARE ==
--- OUTSIDE RECORDS SUMMARY | 2018-04-04 22:36 | XMS REPORT | Clinical Summary ---
:1950 Author Organization [facility] Address [address] [place] [address] Care Team Providers Name Role Phone Asked, No Pcp Primary Care Provider Unavailable Allergies Active Allergy Reactions Severity Noted Date Comments Amantadine Other (See Comments) 10/11/2015 seizure Metronidazole Other (See Comments) 10/11/2015 hallucinaions Medications Medication Sig Dispensed Refills Start Date End Date Status carBAMazepine Take 200 mg by 0 Active (TEGretol) 200 mg mouth 2 (two) tablet times a day. finasteride Take 5 mg by 0 Active (PROSCAR) 5 mg mouth daily. tablet gabapentin Take 900 mg by 0 Active (NEURONTIN) 300 MG mouth daily with capsule dinner. latanoprost Administer 1 drop 0 Active (XALATAN) 0.005 % to both eyes ophthalmic nightly. solution levothyroxine Take 25 mcg by 0 Active (SYNTHROID, mouth every LEVOTHROID) 25 MCG morning. tablet metoprolol Take 25 mg by 0 Active tartrate mouth every 12 (LOPRESSOR) 50 MG (twelve) hours. tablet niacin 100 MG Take 750 mg by 0 Active tablet mouth nightly. simvastatin Take 80 mg by 0 Active (ZOCOR) 80 MG mouth nightly. tablet oxybutynin Take 5 mg by 0 Active (DITROPAN) 5 MG mouth 3 (three) tablet times a day. bisacodyl Insert 10 mg into 0 Active (DULCOLAX) 10 mg the rectum daily suppository as needed for constipation. albuterol Take 2.5 mg by 0 Active (PROVENTIL) 2.5 mg nebulization /3 mL (0.083 %) every 4 (four) nebulizer solution hours as needed for shortness of breath. brinzolamide-brimo Apply 1 drop to 0 Active nidine (SIMBRINZA) eye 2 (two) times 1-0.2 % a day. Both eyes drops,suspension dimethyl fumarate Take 240 mg by 0 Active (TECFIDERA) 240 mg mouth 2 (two) capsule,delayed times a day. release(DR/EC) ibuprofen Take 800 mg by 0 Active (ADVIL,MOTRIN) 800 mouth 3 (three) MG tablet times a day as needed for mild pain. BABY ASPIRIN ORAL Take by mouth. 0 Active amLODIPine Take 5 mg by 1 06/23/2017 Active (NORVASC) 5 mg mouth daily. tablet gabapentin Take 600 mg by 0 Discontinued (NEURONTIN) 600 MG mouth daily. 8 tablet gabapentin Take 600 mg by 0 Discontinued (NEURONTIN) 600 MG mouth daily with 8 tablet lunch. gabapentin Take 300 mg by 0 Discontinued (NEURONTIN) 300 MG mouth nightly. 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 Stented coronary artery 07/02/2017 Subarachnoid bleed 10/31/2016 Syncope 10/29/2016 Hypoxia 10/11/2015 Encounters Date Type Specialty Care Team Description 07/02/2017 Office Visit Cardiology Tremaine Pastor MD CAD in [place] artery (Primary Dx); Stented coronary artery after 04/03/2017 Social History Tobacco Use Types Packs/Day Years Used Date Former Smoker Smokeless Tobacco: Never Used Comments: stop smoking since 1982 Alcohol Use Drinks/Week oz/Week Comments Yes very seldom Sex Assigned at Date Recorded Not on file Job Start Date Occupation Industry Not on file Not on file Not on file Travel History Travel Start Travel End No recent travel history available. Last Filed Vital Signs Vital Sign Reading [...] Last Done Comments COLON CANCER SCREENING 12/24/1999 SHINGLES VACCINES (1 of 2) 12/24/1999 PNEUMOCOCCAL POLYSACCHARIDE VACCINE AGE 65 AND OVER 2014 PNEUMOCOCCAL-13 2014 INFLUENZA VACCINE 10/27/2017 Implants Implanted Type Area Thread Trimmer Device Identifier Shelf Expiration Model / Serial Date / Lot Stents X5 Procedures Procedure Name Priority Date/Time Associated Diagnosis Comments ECG 12-LEAD Routine 07/02/2017 9:14 AM CAD in [place] artery Results for this CDT procedure are in the results section. after 04/03/2017 Results ECG 12 lead (07/02/2017 9:14 AM CDT) Ventricular rate 51 [facility] Atrial rate 51 [facility] WA interval 210 [facility] QRSD interval 96 [facility] QT interval 416 [facility] QTC interval 383 [facility] P axis 1 31 [facility] QRS axis 1 9 [facility] T wave axis 69 [facility] EKG impression Sinus bradycardia with 1st degree AV [facility] MUSE block-Otherwise normal ECG-In automated comparison with ECG of 30-OCT-2016 07:03,-[place] interval has increased- Performing Organization Address City/State/Zipcode Phone Number [facility] [address] [place] [address] after 04/03/2017 Insurance Payer Benefit Plan / Group Subscriber ID Type Phone Address MEDICARE MEDICARE PART A AND B xxxxxxxxxx Medicare [place], [place] AARP AARP SUPPLEMENT xxxxxxxxx Commercial Advance Directives Patient has advance care planning documents on file. For more information, please contact:Rusty Tyler[address] [place] [address]
--- OUTSIDE RECORDS SUMMARY | 2018-04-04 22:36 | XMS REPORT | Clinical Summary ---
:1950 Author Organization [facility] Address [address] [place] [address] Care Team Providers Name Role Phone Sharppatricia Primary Care Provider Allergies Active Allergy Reactions Severity Noted Date Comments Amantadine Analogues Other (See Comments) 12/07/2016 seizure Metronidazole Other (See Comments) 12/07/2016 hallucinations Medications Medication Sig Dispensed Refills Start Date End Date Status albuterol Take 2.5 mg by 0 Active (PROVENTIL) 2.5 mg nebulization every 6 /3 mL (0.083 %) (six) hours as needed nebulizer solution for Wheezing. bisacodyl (DULCOLAX, Place 10 mg rectally 0 Active BISACODYL,) 10 mg daily. suppository carBAMazepine Take 400 mg by mouth 0 Active (TEGRETOL) 200 mg 2 (two) times daily . tablet cetirizine (ZYRTEC) Take 5 mg by mouth 0 Active 5 MG tablet daily. cyanocobalamin Inject 1,000 mcg 0 Active (VITAMIN B-12) 1,000 intramuscularly once. mcg/mL injection finasteride Take 5 mg by mouth 0 Active (PROSCAR) 5 mg daily. tablet gabapentin Take 600 mg by mouth 0 Active (NEURONTIN) 600 MG 2 (two) times daily tablet With breakfast and lunch . gabapentin Take 900 mg by mouth 0 Active (NEURONTIN) 300 MG every evening With capsule dinner and at bedtime. . ibuprofen Take 800 mg by mouth 0 Active (ADVIL,MOTRIN) 800 every 8 (eight) hours MG tablet as needed for Pain. latanoprost 1 drop nightly. 0 Active (XALATAN) 0.005 % ophthalmic solution levothyroxine Take 25 mcg by mouth 0 Active (SYNTHROID, Every morning on an LEVOTHROID) 25 MCG empty stomach. tablet metoprolol Take 50 mg by mouth 0 Active (TOPROL-XL) 50 MG 24 daily. hr tablet niacin 100 MG tablet Take 100 mg by mouth 0 Active nightly . oxybutynin Take 5 mg by mouth 3 0 Active (DITROPAN) 5 MG (three) times daily. tablet brinzolamide-brimoni Apply to eye(s). 0 Active dine (SIMBRINZA) 1-0.2 % DrpS simvastatin (ZOCOR) Take 80 mg by mouth 0 Active 80 MG tablet nightly. dimethyl fumarate Take by mouth 2 (two) 0 Active (TECFIDERA) 240 mg times daily. CpDR carBAMazepine Take 200 mg by mouth 0 Active (TEGRETOL) 200 mg daily Taken at 1pm tabletIndications: daily . Trigeminal Neuralgia gabapentin Take 300 mg by mouth 0 Active (NEURONTIN) 300 MG nightly. capsule Active Problems Problem Noted Date SAH (subarachnoid hemorrhage) 12/10/2016 Vasovagal syncope 12/07/2016 Social History Tobacco Use Types Packs/Day Years Used Date Never Smoker Smokeless Tobacco: Never Used Alcohol Use Drinks/Week oz/Week Comments No Sex Assigned at Date Recorded Not on file Job Start Date Occupation Industry Not on file Not on file Not on file Travel History Travel Start Travel End No recent travel history available. Last Filed Vital Signs Not on file Plan of Treatment Not on file Results Not on fileafter 04/03/2017 Insurance Payer Benefit Plan / Group Subscriber ID Type Phone Address MEDICARE MEDICARE A B xxxxxxxxxx Medicare MCR SUPPLEMENT/INDIVIDUAL AARP/[facility] xxxxxxxxxxx [facility] Advance Directives For more information, please contact:[address] [phone] Code Status Date Activated Date Inactivated Comments Full Code 12/07/2016 6:45 PM 12/10/2016 6:33 PM This code status was determined by: Patient
--- OUTSIDE RECORDS SUMMARY | 2018-04-04 22:36 | XMS REPORT ---
:1950 Author Organization [facility] Address [address] [place] [address] Dr. Garcia [address] [place] [address] Care Team Providers Name Role Phone KARUNA [...] Value Reference Range Comments SCAN RESULT (test bmyg=[id number]) Result comments: STREPTOCOCCUS SPECIES DETECTED (Non-Strep Pneumo; Non-Group A or Group B) First line therapy: Vancomycin De-escalate based on susceptibilities Other organisms and resistance markers not contained in this PCR panel cannot be excluded and follow-up of traditional culture results is required. This sample was tested at the [facility] Clinical Microbiology Laboratory using the [employer] Blood Culture ID Panel. This test is FDA cleared for in vitro diagnostic use and has been verified and approved by the [facility] Clinical Microbiology laboratory for clinical use. Reference Range: Not DetectedBLOOD [id number] 13:19:00 Test Item Value Reference Range Comments CULTURE (BEAKER) From Aerobic Bottle Only (test cdhl=5027) Alpha-hemolytic streptococcus GRAM STAIN RESULT From aerobic bottle (BEAKER) (test only: gram positive tllz=6248) cocci in chains STREPTOCOCCUS SPECIES DETECTED(Non-Strep Pneumo; Non-Group A or Group B)First line therapy: VancomycinDe-escalate based on susceptibilitiesOther organisms and resistance markers not contained in this PCR panel cannot be excluded and follow-up of traditional culture results is required. This sample was tested at the [facility] Clinical Microbiology Laboratory using the [employer] Blood Culture ID Panel. This test is FDA cleared for in vitro diagnostic use and has been verified and approved by the [facility] Clinical Microbiology laboratory for clinical use. Reference Range: Not DetectedBLOOD [id number] 19:00:00 Test Item Value Reference Range Comments CULTURE (BEAKER) (test yrfr=4715) No growth in 5 days BLOOD [id number] 19:00:00 Test Item Value Reference Range Comments CULTURE (BEAKER) (test gofz=7821) No growth in 5 days CORTISOL,60 [id number] 15:41:00 Test Item Value Reference Range Comments CORTISOL BASELINE NETWORKED (BEAKER) (test 11.8 mcg/dL xwlq=3379) CORTISOL 30 MINUTE NETWORKED (BEAKER) (test 20.4 mcg/dL vkwp=3456) CORTISOL, 60 MINUTE (BEAKER) (test eqeb=7775) 14.5 ug/dL ACTH STIMULATION TEST INTERPRETATION GUIDELINES(Synonyms: [...] cortisol level 60 minutes after cosyntropin administration.CORTISOL,30 [id number] 15:40:00 Test Item Value Reference Range Comments CORTISOL BASELINE NETWORKED (BEAKER) (test 11.8 mcg/dL edep=5215) CORTISOL, 30 MINUTE (BEAKER) (test gwcn=1490) 20.4 ug/dL ACTH STIMULATION TEST INTERPRETATION GUIDELINES(Synonyms: [...] by Caroline et al (JUAN J 2000,283( 8):2258-45), the ACTH Stimulation Test provides important prognostic [...] serum cortisol level 60 minutes after cosyntropin administration.CORTISOL,[id number] 11:51:00 Test Item Value Reference Range Comments CORTISOL, BASELINE (CIARA) (test utbq=7351) 11.8 ug/dL ACTH STIMULATION TEST INTERPRETATION GUIDELINES(Synonyms: [...] by Caroline et al (JUAN J 2000,283( 8):1093-45), the ACTH Stimulation Test provides important prognostic [...] cortisol level 60 minutes after cosyntropin administration.URINE [id number] 10:21:00 Test Item Value Reference Range Comments CULTURE (BEAKER) (test mcqp=6349) No growth RAD, CHEST, 1 VIEW, NON [id number] 08:44:00Reason for exam:->pnaShould this be performed at [...] MDReport Verified Date/Time: 12/09/2016 08:44:43 Reading Location: [facility] Diagnostic Imaging Reading Room [place] [address] [id number] 08:08:00 Test Item Value Reference Range Comments MAGNESIUM (BEAKER) (test rlmx=565) 1.9 mg/dL 1.6-2.6 BASIC METABOLIC [id number] 08:08:00 Test Item Value Reference Range Comments SODIUM (BEAKER) (test 133 meq/L 136-145 srot=447) POTASSIUM (BEAKER) (test 3.9 meq/L 3.5-5.1 oayy=923) CHLORIDE (BEAKER) (test 100 meq/L 98-107 egpd=698) CO2 (BEAKER) (test 27 meq/L 22-29 xqek=389) BLOOD UREA NITROGEN 14 mg/dL 7-21 (BEAKER) (test ylqx=073) CREATININE (BEAKER) (test 0.60 mg/dL 0.57-1.25 vokj=075) GLUCOSE RANDOM (BEAKER) 90 mg/dL 70-105 (test rcuy=382) CALCIUM (BEAKER) (test 8.8 mg/dL 8.4-10.2 oiur=864) EGFR (BEAKER) (test 135 mL/min/1.73 sq m ESTIMATED GFR IS NOT tkdp=4483) ACCURATE CREATININE CLEARANCE IN PREDICTING GLOMERULAR FILTRATION RATE. ESTIMATED GFR IS NOT APPLICABLE FOR DIALYSIS PATIENTS. [id number] 06:44:00 Test Item Value Reference Range Comments CORTISOL, TOTAL (BEAKER) (test fzan=1145) 6.2 ug/dL 3.7-19.4 CALCIUM, [id number] 06:16:00 Test Item Value Reference Range Comments CALCIUM IONIZED (BEAKER) (test umtc=612) 0.93 mmol/L 1.12-1.27 PH, BLOOD (BEAKER) (test acjx=3569) 7.50 EEG AWAKE AND [id number] 17:34:00Reason for exam:->SyncopeDATE OF EE12-08-2016 DATE OF REPORT: 12-08-2016 ACC: [id number] Start time: 12: 49 Stoptime: 13:10 ICD-10: R55 CPT Code: 58410 HISTORY: recurrent syncopal episodes MEDICATIONS THAT COULDAFFECT EEG: TECHNICAL SUMMARY: This is a digital EEG recorded with 32 input channels on a [employer] system and then reviewed with bipolar and [...] Comments NEUTROPHILS - REL (DIFF) (BEAKER) (test lsgl=5698) 69 % LYMPHOCYTES - REL (DIFF) (BEAKER) (test tait=2993) 23 % MONOCYTES - REL (DIFF) (BEAKER) (test fzlt=6584) 7 % BANDS - REL (DIFF) (BEAKER) (test knfj=0681) 1 % 0-10 NEUTROPHILS - ABS (DIFF) (BEAKER) (test tzhd=1697) 1.86 K/ L 1.80-8.00 LYMPHOCYTES - ABS (DIFF) (BEAKER) (test jqus=8143) 0.62 K/ L 1.48-4.50 MONOCYTES - ABS (DIFF) (BEAKER) (test ovog=5528) 0.19 K/ L 0.00-1.30 BANDS-ABS (DIFF) (BEAKER) (test toss=9308) 0.0 K/ L 0.0-0.8 TOTAL COUNTED (BEAKER) (test qawt=3901) 100 BANDS + SEGMENTED NEUTROPHILS (BEAKER) (test 1.89 hlcs=9911) WBC MORPHOLOGY (BEAKER) (test lpzk=011) Normal RBC MORPHOLOGY (BEAKER) (test vsan=808) Normal LARGE PLT(BEAKER) (test rhan=6703) Present CALCIUM, [id number] 07:03:00 Test Item Value Reference Range Comments CALCIUM IONIZED (BEAKER) (test anzb=271) 1.14 mmol/L 1.12-1.27 PH, BLOOD (BEAKER) (test jeqv=1273) 7.37 [id number] 07:01:00 Test Item Value Reference Range Comments MAGNESIUM (BEAKER) (test wxus=988) 2.0 mg/dL 1.6-2.6 BASIC METABOLIC [id number] 07:01:00 Test Item Value Reference Range Comments SODIUM (BEAKER) (test 137 meq/L 136-145 vgas=300) POTASSIUM (BEAKER) (test 4.0 meq/L 3.5-5.1 clmo=380) CHLORIDE (BEAKER) (test 102 meq/L 98-107 gqaf=372) CO2 (BEAKER) (test 28 meq/L 22-29 mtco=787) BLOOD UREA NITROGEN 12 mg/dL 7-21 (BEAKER) (test wcjh=143) CREATININE (BEAKER) (test 0.61 mg/dL 0.57-1.25 xkbe=416) GLUCOSE RANDOM (BEAKER) 85 mg/dL 70-105 (test tbxs=712) CALCIUM (BEAKER) (test 9.0 mg/dL 8.4-10.2 qaxp=720) EGFR (BEAKER) (test 132 mL/min/1.73 sq m ESTIMATED GFR IS NOT kznx=0933) ACCURATE CREATININE CLEARANCE IN PREDICTING GLOMERULAR FILTRATION RATE. ESTIMATED GFR IS NOT APPLICABLE FOR DIALYSIS PATIENTS. CBC W/PLT COUNT & AUTO [id number] 06:30:00 Test Item Value Reference Range Comments WHITE BLOOD CELL COUNT (BEAKER) (test tboo=209) 2.7 K/ L 3.5-10.5 RED BLOOD CELL COUNT (BEAKER) (test ichb=524) 3.90 M/ L 4.63-6.08 HEMOGLOBIN (BEAKER) (test bcjc=267) 12.6 GM/DL 13.7-17.5 HEMATOCRIT (BEAKER) (test jijr=882) 37.5 % 40.1-51.0 MEAN CORPUSCULAR VOLUME (BEAKER) (test pmtz=923) 96.2 fL 79.0-92.2 MEAN CORPUSCULAR HEMOGLOBIN (BEAKER) (test 32.3 pg 25.7-32.2 mwna=550) MEAN CORPUSCULAR HEMOGLOBIN CONC (BEAKER) (test 33.6 GM/DL 32.3-36.5 zmwy=847) RED CELL DISTRIBUTION WIDTH (BEAKER) (test 13.0 % 11.6-14.4 byqo=197) PLATELET COUNT (BEAKER) (test owlz=350) 126 K/CU MM 150-450 MEAN PLATELET VOLUME (BEAKER) (test zyot=599) 10.6 fL 9.4-12.4 NUCLEATED RED BLOOD CELLS (BEAKER) (test 0 /100 WBC 0-0 kjlu=487) IMMATURE GRANULOCYTES-RELATIVE PERCENT (BEAKER) 0 % 0-1 (test ntqa=0294) URINALYSIS W/ [id number] 17:47:00 Test Item Value Reference Range Comments COLOR (BEAKER) (test dwvn=389) Light Yellow CLARITY (BEAKER) (test sivu=335) Clear SPECIFIC GRAVITY UA (BEAKER) (test ukpt=399) 1.032 1.001-1.035 PH UA (BEAKER) (test kwwj=309) 7.0 5.0-8.0 PROTEIN UA (BEAKER) (test jbpk=633) Negative Negative GLUCOSE UA (BEAKER) (test qekj=600) Negative Negative KETONES UA (BEAKER) (test vnzr=655) Negative Negative BILIRUBIN UA (BEAKER) (test dtso=852) Negative Negative BLOOD UA (BEAKER) (test voch=406) Negative Negative NITRITE UA (BEAKER) (test mzoc=342) Negative Negative LEUKOCYTE ESTERASE UA (BEAKER) (test afft=858) Negative Negative UROBILINOGEN UA (BEAKER) (test hxxh=756) 0.2 mg/dL 0.2-1.0 RBC UA (BEAKER) (test prxh=403) 2 /HPF WBC UA (BEAKER) (test ddbh=279) 6 /HPF BACTERIA (BEAKER) (test ffef=363) Rare SOURCE(BEAKER) (test zyku=4752) Urine, Voided CT, CAROTID, [id number] 16:48:00FINAL REPORT CTA head and neck with [...] left and mild to moderate right mid HEAD NECK SURGEON stenoses and mild left intradural vertebral artery stenosis. There is mild carotid siphon atherosclerosis. Otherwise no high grade proximal [place] stenosis or major branch occlusion [...] left and mild to moderate right mid HEAD NECK SURGEON stenoses, and other lesser intracranial atherosclerotic changes as discussed. 4. Nonspecific bilateral ground glass lung opacities, which could reflect edema or atypical pneumonitis. Advise correlation with chest imaging. Signed: Aaron Moulton MDReport Verified Date/Time: 12/07/2016 16:48:08 Reading Location: [address] Neuro Reading [facility] [id number] 16:48:00FINAL REPORT CTA head and neck with [...] left and mild to moderate right mid HEAD NECK SURGEON stenoses and mild left intradural vertebral artery stenosis. There is mild carotid siphon atherosclerosis. Otherwise no high grade proximal [place] stenosis or major branch occlusion [...] left and mild to moderate right mid HEAD NECK SURGEON stenoses, and other lesser intracranial atherosclerotic changes as discussed. 4. Nonspecific bilateral ground glass lung opacities, which could reflect edema or atypical pneumonitis. Advise correlation with chest imaging. Signed: Aaron Moulton MDRort Verified Date/Time: 12/07/2016 16:48:08 Reading Location: [address] Neuro Reading Room CREATINE KINASE (CK), TOTAL AND [id number] 14:16:00 Test Item Value Reference Range Comments CREATINE KINASE TOTAL (BEAKER) (test rhuy=606) 85 U/L 29-200 CREATINE KINASE-MB (BEAKER) (test oplt=450) 3.5 ng/mL 0.0-6.6 CREATINE KINASE-MB INDEX (BEAKER) (test kwbc=080) 4.1 % CK-MB Reference Range:<6.7 Normal6.7-10.0 Borderline>10.0 AbnormalTROPONIN [id number] 14:16:00 Test Item Value Reference Range Comments TROPONIN I (BEAKER) (test hhxy=531) < ng/mL 0.00-0.03 Troponin I (TnI) levels [...] failure, acidosis, acute neurological disease, and persistent tachyarrhythmia.[id number] 14:09:00 Test Item Value Reference Range Comments MAGNESIUM (BEAKER) (test vrvw=946) 2.1 mg/dL 1.6-2.6 BASIC METABOLIC [id number] 14:09:00 Test Item Value Reference Range Comments SODIUM (BEAKER) (test 133 meq/L 136-145 nckc=307) POTASSIUM (BEAKER) (test 4.2 meq/L 3.5-5.1 jwys=390) CHLORIDE (BEAKER) (test 98 meq/L 98-107 bcxa=012) CO2 (BEAKER) (test 28 meq/L 22-29 usih=522) BLOOD UREA NITROGEN 14 mg/dL 7-21 (BEAKER) (test uink=371) CREATININE (BEAKER) (test 0.75 mg/dL 0.57-1.25 tewc=342) GLUCOSE RANDOM (BEAKER) 125 mg/dL 70-105 (test ckvl=091) CALCIUM (BEAKER) (test 9.1 mg/dL 8.4-10.2 upui=254) EGFR (BEAKER) (test 104 mL/min/1.73 sq m ESTIMATED GFR IS NOT kkgs=0981) ACCURATE CREATININE CLEARANCE IN PREDICTING GLOMERULAR FILTRATION RATE. ESTIMATED GFR IS NOT APPLICABLE FOR DIALYSIS PATIENTS. [id number] 13:58:00 Test Item Value Reference Range Comments PROTIME (BEAKER) (test pjga=195) 14.7 seconds 11.7-14.7 INR (BEAKER) (test tvoh=352) 1.2 <=5.9 PARTIAL THROMBOPLASTIN TIME (BEAKER) (test 23.4 seconds 22.5-36.0 jgbt=817) RECOMMENDED COUMADIN/WARFARIN INR THERAPY RANGESSTANDARD DOSE: 2.0 - 3.0 Includes: PROPHYLAXIS forvenous thrombosis, systemic embolization; TREATMENT for venous thrombosis and/or pulmonary embolus.HIGH RISK: Target INR is 2.5-3.5 for patients with mechanical heart valves.CBC W/PLT COUNT & AUTO [id number] 13:52:00 Test Item Value Reference Range Comments WHITE BLOOD CELL COUNT (BEAKER) (test kcsj=260) 3.0 K/ L 3.5-10.5 RED BLOOD CELL COUNT (BEAKER) (test dcmg=130) 3.71 M/ L 4.63-6.08 HEMOGLOBIN (BEAKER) (test oafn=058) 12.0 GM/DL 13.7-17.5 HEMATOCRIT (BEAKER) (test ilxt=172) 35.7 % 40.1-51.0 MEAN CORPUSCULAR VOLUME (BEAKER) (test mfig=133) 96.2 fL 79.0-92.2 MEAN CORPUSCULAR HEMOGLOBIN (BEAKER) (test 32.3 pg 25.7-32.2 rumq=718) MEAN CORPUSCULAR HEMOGLOBIN CONC (BEAKER) (test 33.6 GM/DL 32.3-36.5 todj=166) RED CELL DISTRIBUTION WIDTH (BEAKER) (test 13.1 % 11.6-14.4 fsyf=200) PLATELET COUNT (BEAKER) (test ytyi=330) 136 K/CU MM 150-450 MEAN PLATELET VOLUME (BEAKER) (test fynw=148) 11.0 fL 9.4-12.4 NUCLEATED RED BLOOD CELLS (BEAKER) (test 0 /100 WBC 0-0 qtxt=036) NEUTROPHILS RELATIVE PERCENT (BEAKER) (test 75 % spew=127) LYMPHOCYTES RELATIVE PERCENT (BEAKER) (test 13 % lfku=082) MONOCYTES RELATIVE PERCENT (BEAKER) (test 10 % hdag=218) EOSINOPHILS RELATIVE PERCENT (BEAKER) (test 1 % mxgr=928) BASOPHILS RELATIVE PERCENT (BEAKER) (test 0 % rdzp=604) NEUTROPHILS ABSOLUTE COUNT (BEAKER) (test 2.22 K/ L 1.78-5.38 olcu=531) LYMPHOCYTES ABSOLUTE COUNT (BEAKER) (test 0.39 K/ L 1.32-3.57 jrig=641) MONOCYTES ABSOLUTE COUNT (BEAKER) (test 0.30 K/ L 0.30-0.82 pors=631) EOSINOPHILS ABSOLUTE COUNT (BEAKER) (test 0.02 K/ L 0.04-0.54 itmg=661) BASOPHILS ABSOLUTE COUNT (BEAKER) (test 0.01 K/ L 0.01-0.08 kgjk=078) IMMATURE GRANULOCYTES-RELATIVE PERCENT (BEAKER) 0 % 0-1 (test iyrl=8732) POCT-GLUCOSE [id number] 13:46:00 Test Item Value Reference Range Comments POC-GLUCOSE METER (CIARA) 136 mg/dL 70-[address] [facility] [address] (test ipsi=7514) [facility] [address] CT, BRAIN/STROKE [id number] 13:28:00Reason for exam:->loss of consciousnessFINAL REPORT CT [...] [place] Verified Date/Time: 12/07/2016 13:28:57 Reading Location: [facility] B1 C013V Neuro Reading Room
[2018-04-04] MEDS ORDERED: LIDOCAINE 1% MPF 5 ML VIAL ONE (23:13)
[2018-04-05] MEDS ORDERED: TETANUS & DIPHTHERIA TOX,ADULT 0.5 ML VIAL ONE (00:58)
--- NOTE | 2018-04-05 01:29 | EDPHYS ---
Physician Documentation [facility] Name: Eleuterio Baird Age: 67 yrs Sex: Male : 1950 Arrival Date: 04/04/2018 Time: 21:57 Bed 14 Private MD: ED Physician Timothy Wong HPI: 04/04 23:49 This 67 yrs old Male presents to ER via Wheelchair with complaints of Fall kb Injury, laceration to lip. 23:49 Details of fall: The patient fell from an upright position, while walking. Onset: The kb symptoms/episode began/occurred just prior to arrival. Associated injuries: The patient sustained injury to the head, laceration. Severity of symptoms: At their worst the symptoms were mild, moderate, in the emergency department the symptoms are unchanged. The patient has not experienced similar symptoms in the past. The patient has not recently seen a physician. Pt got his feet tangled in his oxygen tubing and fell, hitting face. Laceration to inner upper lip. Historical: - Allergies: 22:09 amantadine HCl; la1 22:09 Flagyl; la1 - PMHx: 22:09 heart stents x5; MS; Myocardial infarction; Pneumonia; la1 - Immunization history:: Adult Immunizations up to date. - Social history:: Smoking status: Patient/guardian denies using tobacco. - Ebola Screening: : No symptoms or risks identified at this time. ROS: 23:48 Constitutional: Negative for fever, chills, and weight loss, Cardiovascular: Negative kb for chest pain, palpitations, and edema, Respiratory: Negative for shortness of breath, cough, wheezing, and pleuritic chest pain, Abdomen/GI: Negative for abdominal pain, nausea, vomiting, diarrhea, and constipation, Neuro: Negative for headache, weakness, numbness, tingling, and seizure. 23:48 Skin: Positive for laceration(s), of the upper lip. Exam: 23:47 Constitutional: This is a well developed, well nourished patient who is awake, alert, kb and in no acute distress. Neck: Trachea midline, no thyromegaly or masses palpated, and no cervical lymphadenopathy. Supple, full range of motion without nuchal rigidity, or vertebral point tenderness. No Meningismus. Chest/axilla: Normal chest wall appearance and motion. Nontender with no deformity. No lesions are appreciated. Cardiovascular: Regular rate and rhythm with a normal S1 and S2. No gallops, murmurs, or rubs. Normal PMI, no JVD. No pulse deficits. Respiratory: Lungs have equal breath sounds bilaterally, clear to auscultation and percussion. No rales, rhonchi or wheezes noted. No increased work of breathing, no retractions or nasal flaring. Abdomen/GI: Soft, non-tender, with normal bowel sounds. No distension or tympany. No guarding or rebound. No evidence of tenderness throughout. MS/ Extremity: Pulses equal, no cyanosis. Neurovascular intact. Full, normal range of motion. Neuro: Awake and alert, GCS 15, oriented to person, place, time, and situation. Cranial nerves II-XII grossly intact. Motor strength 5/5 in all extremities. Sensory grossly intact. Cerebellar exam normal. Normal gait. 23:47 ENT: Mouth: Lips: lacerated, upper lip. Vital Signs: 22:11 Resp 18; Temp 97.6; Pulse Ox 100% on R/A; Weight 81.65 kg; Height 5 ft. 8 in. (172.72 la1 cm); 22:13 BP 178 / 77; la1 23:30 BP 175 / 70; Pulse 58; Resp 19; Pulse Ox 98% ; rr5 08 00:00 BP 179 / 76; Pulse 57; Resp 19; Pulse Ox 99% ; rr5 00:55 BP 195 / 85; Pulse 60; Resp 18; Pulse Ox 99% ; rr5 01:40 BP 185 / 78; Pulse 61; Resp 17; Pulse Ox 99% ; rr5 01:56 BP 177 / 78; Pulse 60; Resp 17; Pulse Ox 99% ; rr5 02:22 BP 163 / 78; Pulse 60; Resp 17; Pulse Ox 99% ; rr5 04/04 22:11 Body Mass Index 27.37 (81.65 kg, 172.72 cm) la1 Laceration: 00:36 Wound Repair of 3cm ( 1.2in ) subcutaneous laceration to upper lip. Irregularly kb shaped.. Distal neuro/vascular/tendon intact. Anesthesia: Wound infiltrated with 3 mls of 1% lidocaine. Wound prep: Wound irrigation with saline by nj. Skin closed with 7 5-0 Vicryl using interrupted sutures and sterile technique. Patient tolerated well. MDM: 04/04 22:18 Patient medically screened. kb 23:47 Data reviewed: vital signs, nurses notes. Data interpreted: Pulse oximetry: on room air kb is 100 %. Interpretation: normal. 04/05 00:43 Counseling: I had a detailed discussion with the patient and/or guardian regarding: the kb historical points, exam findings, and any diagnostic results supporting the discharge/admit diagnosis, radiology results, the need for outpatient follow up, a family practitioner, to return to the emergency department if symptoms worsen or persist or if there are any questions or concerns that arise at home. 04/04 22:57 Order name: CT Head Brain wo Cont kb 04/04 23:02 Order name: Vicryl, Sutures; Complete Time: 00:03 kb 04/04 23:02 Order name: Dressing - Wound; Complete Time: 00:03 kb 04/04 23:02 Order name: Gloves, Sterile; Complete Time: 00:03 kb 04/04 23:02 Order name: Setup Suture Tray; Complete Time: 23:04 kb Administered Medications: 04/04 23:40 Drug: Lidocaine (1 %) 1 vials {Note: given by laura GARCIA.} Volume: 20 ml; Route: rr5 Infiltration; 04/05 02:23 Follow up: Response: No adverse reaction rr5 00:45 Drug: Tetanus-Diphtheria Toxoid Adult 0.5 ml {Field Mechanical Meter Tester: [employer]. Exp: rr5 04/16/2020. Lot #: [id number]. } Route: IM; Site: left deltoid; 02:23 Follow up: Response: No adverse reaction rr5 01:42 Drug: [place] (7.5 mg-325 mg) 1 tabs Route: PO; rr5 02:23 Follow up: Response: No adverse reaction rr5 Disposition: 07:27 Co-signature as Attending Physician, Timothy Wong MD I agree with the assessment and yaya plan of care. Disposition: 04/05/18 01:28 Discharged to Home. Impression: Fall on same level from slipping, tripping and stumbling, Laceration without foreign body of lip. - Condition is Stable. - Discharge Instructions: Mouth Laceration, [id number], Fall Prevention in the Home, [id number]. - Prescriptions for Tramadol 50 mg Oral Tablet - take 1 tablet by ORAL route every 8 hours as needed; 12 tablet. - Medication Reconciliation Form, Thank You Letter, Antibiotic Education, Prescription Opioid Use form. - Follow up: Private Physician; When: 2 - 3 days; Reason: Recheck today's complaints, Continuance of care, Re-evaluation by your physician. Follow up: Emergency Department; When: As needed; Reason: Worsening of condition. Signatures: Dispatcher [employer] EDMS ChristopherTaylor, ANGULAR DEVELOPER-C ANGULAR DEVELOPER-Timothy Acevedo MD MD cha Attema, Lee RN RN la1 Myles Mays RN RN rr5 Corrections: (The following items were deleted from the chart) 02:36 01:28 04/05/2018 01:28 Discharged to Home. Impression: Fall on same level from rr5 slipping, tripping and stumbling; Laceration without foreign body of lip. Condition is Stable. Discharge Instructions: Mouth Laceration, [id number]-[id number], Fall Prevention in the Home, [id number]. Forms are Medication Reconciliation Form, Thank You Letter, Antibiotic Education, Prescription Opioid Use. Follow up: Private Physician; When: 2 - 3 days; Reason: Recheck today's complaints, Continuance of care, Re-evaluation by your physician. Follow up: Emergency Department; When: As needed; Reason: Worsening of condition. kb
--- NOTE | 2018-04-05 01:29 | ER ---
Nurse's Notes [facility] Name: Eleuterio Baird Age: 67 yrs Sex: Male : 1950 Arrival Date: 04/04/2018 Time: 21:57 Bed 14 Private MD: Diagnosis: Fall on same level from slipping, tripping and stumbling;Laceration without foreign body of lip Presentation: 04/04 22:09 Presenting complaint: Patient states: I was walking with on a concrete floor and fell la1 on my face and busted my lip, pt denies LOC. Transition of care: patient was not received from another setting of care. Onset of symptoms was April 04, 2018. Risk Assessment: Do you want to hurt yourself or someone else? Patient reports no desire to harm self or others. Initial Sepsis Screen: Does the patient meet any 2 criteria? No. Patient's initial sepsis screen is negative. Does the patient have a suspected source of infection? No. Patient's initial sepsis screen is negative. Care prior to arrival: None. 22:09 Method Of Arrival: Wheelchair la1 22:09 Acuity: SALOME 3 la1 Historical: - Allergies: 22:09 amantadine HCl; la1 22:09 Flagyl; la1 - PMHx: 22:09 heart stents x5; MS; Myocardial infarction; Pneumonia; la1 - Immunization history:: Adult Immunizations up to date. - Social history:: Smoking status: Patient/guardian denies using tobacco. - Ebola Screening: : No symptoms or risks identified at this time. Screenin:30 Abuse screen: Denies threats or abuse. Denies injuries from another. Nutritional rr5 screening: No deficits noted. Tuberculosis screening: No symptoms or risk factors identified. Fall Risk Ambulatory Aid- Crutches/Cane/Walker (15 pts). Gait- Weak (10 pts.). Total Stuart Fall Scale indicates Low Risk Score (25-44 pts). Fall prevention measures have been instituted. Side Rails Up X 2 Placed close to Nursing Station Frequent Obs/Assesments occuring Family Present and informed to notify staff if they need to leave bedside As available Patient and Family Educated on Fall Prevention Program and strategies. Assessment: 22:30 General: Appears in no apparent distress. uncomfortable, Behavior is calm, cooperative, rr5 appropriate for age. Pain: Complains of pain in upper lip Pain does not radiate. Pain currently is 6 out of 10 on a pain scale. Quality of pain is described as aching, Pain began suddenly, Is continuous. Neuro: Level of Consciousness is awake, alert, obeys commands, Oriented to person, place, time, situation, Weakness in right Gait is unsteady, Speech is normal, Facial symmetry appears normal, Pupils are PERRLA, Reports. Cardiovascular: Capillary refill < 3 seconds Patient's skin is warm and dry. Respiratory: Airway is patent Respiratory effort is even, unlabored, Respiratory pattern is regular, symmetrical. GI: No signs and/or symptoms were reported involving the gastrointestinal system. : No signs and/or symptoms were reported regarding the genitourinary system. EENT: lacerated wound at upper lip. Derm: Skin is intact, Skin temperature is warm Wound noted upper lip Wound is lacerated wound. Musculoskeletal: Capillary refill < 3 seconds, Range of motion: intact in right hip, right knee and right ankle. 23:00 Reassessment: Patient appears in no apparent distress at this time. No changes from rr5 previously documented assessment. Patient and/or family updated on plan of care and expected duration. Pain level reassessed. sent for CT scan of head. 04/05 00:15 Reassessment: Patient appears in no apparent distress at this time. Patient and/or rr5 family updated on plan of care and expected duration. Pain level reassessed. suturing done aseptically. tolerated well Patient states feeling better. Patient states symptoms have improved. 00:50 Reassessment: Patient appears in no apparent distress at this time. Patient and/or rr5 family updated on plan of care and expected duration. Pain level reassessed. no complaints made. ED provider informed for the BP reading. 01:40 Reassessment: Patient appears in no apparent distress at this time. Patient and/or rr5 family updated on plan of care and expected duration. Pain level reassessed. complaining of pain at suture site. ED provider informed with order and carried out. 02:27 Reassessment: Patient appears in no apparent distress at this time. Patient and/or rr5 family updated on plan of care and expected duration. Pain level reassessed. ED provider informed for the latest BP. discharge instruction and prescription given without any complaints. Vital Signs: 04/04 22:11 Resp 18; Temp 97.6; Pulse Ox 100% on R/A; Weight 81.65 kg; Height 5 ft. 8 in. (172.72 la1 cm); 22:13 BP 178 / 77; la1 23:30 BP 175 / 70; Pulse 58; Resp 19; Pulse Ox 98% ; rr5 04/05 00:00 BP 179 / 76; Pulse 57; Resp 19; Pulse Ox 99% ; rr5 00:55 BP 195 / 85; Pulse 60; Resp 18; Pulse Ox 99% ; rr5 01:40 BP 185 / 78; Pulse 61; Resp 17; Pulse Ox 99% ; rr5 01:56 BP 177 / 78; Pulse 60; Resp 17; Pulse Ox 99% ; rr5 02:22 BP 163 / 78; Pulse 60; Resp 17; Pulse Ox 99% ; rr5 04/04 22:11 Body Mass Index 27.37 (81.65 kg, 172.72 cm) la1 ED Course: 04/04 21:57 Patient arrived in ED. es 22:06 Taylor White FNP-C is PHCP. kb 22:06 Timothy Wong MD is Attending Physician. kb 22:10 Triage completed. la1 22:10 Arm band placed on left wrist. la1 22:15 Pulse ox on. NIBP on. rr5 22:15 Patient has correct armband on for positive identification. Placed in gown. Bed in low rr5 position. Call light in reach. Side rails up X2. 22:30 Myles Mays, RN is Primary Nurse. rr5 23:[address] via stretcher. kw1 23:21 CT Head Brain wo Cont In Process Unspecified. EDMS 23:22 CT completed. Patient tolerated procedure well. Patient moved back from CT. kw1 04/05 00:15 Assist provider with laceration repair on upper lip that was 2.5 cm. or less using rr5 sutures. Set up tray. Performed by Taylor HOWARD Dressed with 4X4s, Patient tolerated well. 02:26 Patient did not have IV access during this emergency room visit. rr5 Administered Medications: 04/04 23:40 Drug: Lidocaine (1 %) 1 vials {Note: given by laura MCKEON} Volume: 20 ml; Route: rr5 Infiltration; 04/05 02:23 Follow up: Response: No adverse reaction rr5 00:45 Drug: Tetanus-Diphtheria Toxoid Adult 0.5 ml {Clarification Operator: [employer]. Exp: rr5 04/16/2020. Lot #: [id number]. } Route: IM; Site: left deltoid; 02:23 Follow up: Response: No adverse reaction rr5 01:42 Drug: [place] (7.5 mg-325 mg) 1 tabs Route: PO; rr5 02:23 Follow up: Response: No adverse reaction rr5 Outcome: 01:28 Discharge ordered by MD. land 02:26 Discharged to home via wheelchair, with family. rr5 02:26 Condition: stable 02:26 Discharge instructions given to patient, family, Instructed on discharge instructions, follow up and referral plans. medication usage, Demonstrated understanding of instructions, follow-up care, medications, Prescriptions given X 1. 02:36 Patient left the ED. rr5 Signatures: Dispatcher [employer] Taylor Acevedo, BENC BIAS MACHINE OPERATOR-Sandrita Martins Lee RN RN la1 Liz Cope 1 Myles Mays, HARPER RN rr5
[2018-04-05] MEDS ORDERED: HYDROCODONE/APAP 7.5/325 MG TAB ONE (01:34)
--- NOTE | 2018-04-05 08:38 | RAD REPORT ---
EXAM DESCRIPTION: CT - Head Brain Wo Cont - 04/05/2018 5:48 am CLINICAL HISTORY: Head injury status post fall. Headache COMPARISON: 2014 TECHNIQUE: Computed axial tomography of the head was obtained. IV contrast was not requested.Prelimi nary report generated by [employer] and reviewed prior to dictation the All CT scans are performed using dose optimization technique as appropriate and may include automated exposure control or mA/KV adjustment according to patient size. FINDINGS: An intracranial bleed is not seen . The ventricles are normal in caliber. No extra-axial fluid collection is noted. Cerebral atrophy is present Fluid within the sinuses/ mastoids is not seen. IMPRESSION: No acute intracranial abnormality is seen. If patient's symptoms persist MRI of the bra in would be recommended.
[2018-04-05 12:42] VITALS: TEMP 97.6
[2018-04-05 12:45] VITALS: O2SAT 99
[2018-04-05 12:50] VITALS: BP 163/78
== END 2018-04-05 02:36 | disposition home or self-care (01) ==
LOC: ER 21:55
PROC: 0CQ0XZZ Repair Upper Lip, External Approach (ICD-10-PCS; principal; 2018-04-04)
DX: S01.511A Laceration without foreign body of lip, initial encounter (principal); Z23 Encounter for immunization; W01.0XXA Fall on same level from slipping, tripping and stumbling without subsequent striking against object, initial encounter
CPT/HCPCS: 70450; 90714; 99284

== ENCOUNTER 2018-07-03 17:59 | Emergency (ER) | payer OTHER, MEDICARE ==
--- OUTSIDE RECORDS SUMMARY | 2018-07-03 18:02 | XMS REPORT | Clinical Summary ---
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 Stented coronary artery 07/02/2017 Subarachnoid bleed 10/31/2016 Syncope 10/29/2016 Hypoxia 10/11/2015 Encounters Date Type Specialty Care Team Description 07/02/2017 Office Visit Cardiology Tremaine Pastor MD CAD in [place] artery (Primary Dx); Stented coronary artery after 07/02/2017 Social History Tobacco Use Types Packs/Day Years [...] Comments COLON CANCER SCREENING 12/24/1999 SHINGLES VACCINES (#1) 12/24/1999 65+ PNEUMOCOCCAL VACCINE (1 of 2 - PCV13) 2014 PNEUMOCOCCAL POLYSACCHARIDE VACCINE AGE 65 AND OVER 2014 INFLUENZA VACCINE 10/27/2018 Implants Implanted Type Area Medical Review Specialist Device Identifier Shelf Expiration Model / Serial Date / Lot Stents X5 Procedures Procedure Name Priority Date/Time Associated Diagnosis Comments ECG 12-LEAD Routine 07/02/2017 9:14 AM CAD in [place] artery Results for this CDT procedure are in the results section. after 07/02/2017 Results ECG 12 lead (07/02/2017 9:14 AM CDT) Ventricular rate 51 [facility] Atrial rate [address] [facility] interval 210 [facility] QRSD interval 96 [facility] QT interval 416 [facility] QTC interval 383 [facility] P axis 1 31 [facility] QRS axis 1 9 [facility] T wave axis 69 [facility] EKG impression Sinus bradycardia with 1st degree AV [facility] block-Otherwise normal ECG-In automated comparison with ECG of 30-OCT-2016 07:03,-CT interval has increased- Performing Organization Address City/State/Zipcode Phone Number [facility] [address] [place] [address] after 07/02/2017 Insurance Payer Benefit Plan / Group Subscriber ID Type Phone Address MEDICARE MEDICARE PART A AND B xxxxxxxxxx Medicare [place], [place] AARP AARP SUPPLEMENT xxxxxxxxx Commercial Advance Directives Patient has advance care planning documents on file. For more information, please contact:Rusty [id number] [place] [address]
--- OUTSIDE RECORDS SUMMARY | 2018-07-03 18:03 | XMS REPORT ---
:1950 [facility] Address [address] [place] [address] Dr. Garcia [address] [place] [id number] Care Team Providers Name Role Phone KARUNA [...] Value Reference Range Comments SCAN RESULT (test ejnj=[id number]) Result comments: STREPTOCOCCUS SPECIES DETECTED (Non-Strep Pneumo; Non-Group A or Group B) First line therapy: Vancomycin De-escalate based on susceptibilities Other organisms and resistance markers not contained in this PCR panel cannot be excluded and follow-up of traditional culture results is required. This sample was tested at the [facility] Clinical Microbiology Laboratory using the [employer] Interactive[employer] Blood Culture ID Panel. This test is FDA cleared for in vitro diagnostic use and has been verified and approved by the [facility] Clinical Microbiology laboratory for clinical use. Reference Range: Not DetectedBLOOD [id number] 13:19:00 Test Item Value Reference Range Comments CULTURE (BEAKER) From Aerobic Bottle Only (test dzxb=8885) Alpha-hemolytic streptococcus GRAM STAIN RESULT From aerobic bottle (BEAKER) (test only: gram positive jsjd=4976) cocci in chains STREPTOCOCCUS SPECIES DETECTED(Non-Strep Pneumo; Non-Group A or Group B)First line therapy: VancomycinDe-escalate based on susceptibilitiesOther organisms and resistance markers not contained in this PCR panel cannot be excluded and follow-up of traditional culture results is required. This sample was tested at the [facility] Clinical Microbiology Laboratory using the Chir[employer] InteractiveArray Blood Culture ID Panel. This test is FDA cleared for in vitro diagnostic use and has been verified and approved by the [facility] Clinical Microbiology laboratory for clinical use. Reference Range: Not DetectedBLOOD [id number] 19:00:00 Test Item Value Reference Range Comments CULTURE (BEAKER) (test fiux=5619) No growth in 5 days BLOOD [id number] 19:00:00 Test Item Value Reference Range Comments CULTURE (BEAKER) (test iiek=6692) No growth in 5 days CORTISOL,60 [id number] 15:41:00 Test Item Value Reference Range Comments CORTISOL BASELINE NETWORKED (BEAKER) (test 11.8 mcg/dL cnxw=8884) CORTISOL 30 MINUTE NETWORKED (BEAKER) (test 20.4 mcg/dL qnzx=6983) CORTISOL, 60 MINUTE (BEAKER) (test rsxb=0734) 14.5 ug/dL ACTH STIMULATION TEST INTERPRETATION GUIDELINES(Synonyms: [...] cortisol level 60 minutes after cosyntropin administration.CORTISOL,30 [id number] 15:40:00 Test Item Value Reference Range Comments CORTISOL BASELINE NETWORKED (BEAKER) (test 11.8 mcg/dL bjhx=3004) CORTISOL, 30 MINUTE (BEAKER) (test wkdo=5663) 20.4 ug/dL ACTH STIMULATION TEST INTERPRETATION GUIDELINES(Synonyms: [...] by Caroline et al (JUAN J 2000,283( 8):8880-45), the ACTH Stimulation Test provides important prognostic [...] serum cortisol level 60 minutes after cosyntropin administration.CORTISOL,[id number] 11:51:00 Test Item Value Reference Range Comments CORTISOL, BASELINE (CIARA) (test sdft=8930) 11.8 ug/dL ACTH STIMULATION TEST INTERPRETATION GUIDELINES(Synonyms: [...] by Caroline et al (JUAN J 2000,283( 8):4714-45), the ACTH Stimulation Test provides important prognostic [...] cortisol level 60 minutes after cosyntropin administration.URINE [id number] 10:21:00 Test Item Value Reference Range Comments CULTURE (BEAKER) (test xjhl=9205) No growth RAD, CHEST, 1 VIEW, NON [id number] 08:44:00Reason for exam:->pnaShould this be performed at [...] MDReport Verified Date/Time: 12/09/2016 08:44:43 Reading Location: [facility] Diagnostic Imaging Reading Room [place] [address] [id number] 08:08:00 Test Item Value Reference Range Comments MAGNESIUM (BEAKER) (test bghx=342) 1.9 mg/dL 1.6-2.6 BASIC METABOLIC [id number] 08:08:00 Test Item Value Reference Range Comments SODIUM (BEAKER) (test 133 meq/L 136-145 gnbw=036) POTASSIUM (BEAKER) (test 3.9 meq/L 3.5-5.1 mtle=022) CHLORIDE (BEAKER) (test 100 meq/L 98-107 nody=226) CO2 (BEAKER) (test 27 meq/L 22-29 yjem=575) BLOOD UREA NITROGEN 14 mg/dL 7-21 (BEAKER) (test lhfi=167) CREATININE (BEAKER) (test 0.60 mg/dL 0.57-1.25 zlwg=011) GLUCOSE RANDOM (BEAKER) 90 mg/dL 70-105 (test afkt=666) CALCIUM (BEAKER) (test 8.8 mg/dL 8.4-10.2 pwex=541) EGFR (BEAKER) (test 135 mL/min/1.73 sq m ESTIMATED GFR IS NOT snwr=1803) ACCURATE CREATININE CLEARANCE IN PREDICTING GLOMERULAR FILTRATION RATE. ESTIMATED GFR IS NOT APPLICABLE FOR DIALYSIS PATIENTS. [id number] 06:44:00 Test Item Value Reference Range Comments CORTISOL, TOTAL (BEAKER) (test fqnw=1420) 6.2 ug/dL 3.7-19.4 CALCIUM, [id number] 06:16:00 Test Item Value Reference Range Comments CALCIUM IONIZED (BEAKER) (test cwru=241) 0.93 mmol/L 1.12-1.27 PH, BLOOD (BEAKER) (test xsiu=0756) 7.50 EEG AWAKE AND [id number] 17:34:00Reason for exam:->SyncopeDATE OF EE12-08-2016 DATE OF REPORT: 12-08-2016 ACC: [id number] Start time: 12: 49 Stoptime: 13:10 ICD-10: R55 CPT Code: 94082 HISTORY: recurrent syncopal episodes MEDICATIONS THAT COULDAFFECT EEG: TECHNICAL SUMMARY: This is a digital EEG recorded with 32 input channels on a [employer] system and then reviewed with bipolar and [...] Comments NEUTROPHILS - REL (DIFF) (BEAKER) (test nerv=8457) 69 % LYMPHOCYTES - REL (DIFF) (BEAKER) (test viuy=2710) 23 % MONOCYTES - REL (DIFF) (BEAKER) (test iqmx=9455) 7 % BANDS - REL (DIFF) (BEAKER) (test mvcb=9166) 1 % 0-10 NEUTROPHILS - ABS (DIFF) (BEAKER) (test iypn=1782) 1.86 K/ L 1.80-8.00 LYMPHOCYTES - ABS (DIFF) (BEAKER) (test ptgl=6970) 0.62 K/ L 1.48-4.50 MONOCYTES - ABS (DIFF) (BEAKER) (test quax=0044) 0.19 K/ L 0.00-1.30 BANDS-ABS (DIFF) (BEAKER) (test wesp=8044) 0.0 K/ L 0.0-0.8 TOTAL COUNTED (BEAKER) (test uhjd=2585) 100 BANDS + SEGMENTED NEUTROPHILS (BEAKER) (test 1.89 pbcp=3076) WBC MORPHOLOGY (BEAKER) (test voeo=839) Normal RBC MORPHOLOGY (BEAKER) (test gxvj=380) Normal LARGE PLT(BEAKER) (test sxci=3830) Present CALCIUM, [id number] 07:03:00 Test Item Value Reference Range Comments CALCIUM IONIZED (BEAKER) (test odyw=613) 1.14 mmol/L 1.12-1.27 PH, BLOOD (BEAKER) (test foee=8318) 7.37 [id number] 07:01:00 Test Item Value Reference Range Comments MAGNESIUM (BEAKER) (test vtcu=623) 2.0 mg/dL 1.6-2.6 BASIC METABOLIC [id number] 07:01:00 Test Item Value Reference Range Comments SODIUM (BEAKER) (test 137 meq/L 136-145 xgzk=541) POTASSIUM (BEAKER) (test 4.0 meq/L 3.5-5.1 diqi=161) CHLORIDE (BEAKER) (test 102 meq/L 98-107 jeth=448) CO2 (BEAKER) (test 28 meq/L 22-29 vvef=789) BLOOD UREA NITROGEN 12 mg/dL 7-21 (BEAKER) (test mday=124) CREATININE (BEAKER) (test 0.61 mg/dL 0.57-1.25 xqfl=625) GLUCOSE RANDOM (BEAKER) 85 mg/dL 70-105 (test efdn=708) CALCIUM (BEAKER) (test 9.0 mg/dL 8.4-10.2 yfrt=202) EGFR (BEAKER) (test 132 mL/min/1.73 sq m ESTIMATED GFR IS NOT edhk=9958) ACCURATE CREATININE CLEARANCE IN PREDICTING GLOMERULAR FILTRATION RATE. ESTIMATED GFR IS NOT APPLICABLE FOR DIALYSIS PATIENTS. CBC W/PLT COUNT & AUTO [id number] 06:30:00 Test Item Value Reference Range Comments WHITE BLOOD CELL COUNT (BEAKER) (test lzwx=535) 2.7 K/ L 3.5-10.5 RED BLOOD CELL COUNT (BEAKER) (test lbko=294) 3.90 M/ L 4.63-6.08 HEMOGLOBIN (BEAKER) (test ildr=495) 12.6 GM/DL 13.7-17.5 HEMATOCRIT (BEAKER) (test zgcy=835) 37.5 % 40.1-51.0 MEAN CORPUSCULAR VOLUME (BEAKER) (test awev=828) 96.2 fL 79.0-92.2 MEAN CORPUSCULAR HEMOGLOBIN (BEAKER) (test 32.3 pg 25.7-32.2 bgdh=148) MEAN CORPUSCULAR HEMOGLOBIN CONC (BEAKER) (test 33.6 GM/DL 32.3-36.5 qgbc=333) RED CELL DISTRIBUTION WIDTH (BEAKER) (test 13.0 % 11.6-14.4 uqdr=486) PLATELET COUNT (BEAKER) (test glym=801) 126 K/CU MM 150-450 MEAN PLATELET VOLUME (BEAKER) (test fymg=095) 10.6 fL 9.4-12.4 NUCLEATED RED BLOOD CELLS (BEAKER) (test 0 /100 WBC 0-0 iqhc=767) IMMATURE GRANULOCYTES-RELATIVE PERCENT (BEAKER) 0 % 0-1 (test bamh=1033) URINALYSIS W/ [id number] 17:47:00 Test Item Value Reference Range Comments COLOR (BEAKER) (test zmur=364) Light Yellow CLARITY (BEAKER) (test anzj=033) Clear SPECIFIC GRAVITY UA (BEAKER) (test dfho=737) 1.032 1.001-1.035 PH UA (BEAKER) (test mebx=278) 7.0 5.0-8.0 PROTEIN UA (BEAKER) (test eulb=979) Negative Negative GLUCOSE UA (BEAKER) (test wznk=984) Negative Negative KETONES UA (BEAKER) (test fgvl=338) Negative Negative BILIRUBIN UA (BEAKER) (test mcmc=231) Negative Negative BLOOD UA (BEAKER) (test nvkd=063) Negative Negative NITRITE UA (BEAKER) (test iekx=594) Negative Negative LEUKOCYTE ESTERASE UA (BEAKER) (test garq=971) Negative Negative UROBILINOGEN UA (BEAKER) (test mnxv=369) 0.2 mg/dL 0.2-1.0 RBC UA (BEAKER) (test evtl=665) 2 /HPF WBC UA (BEAKER) (test ddbq=926) 6 /HPF BACTERIA (BEAKER) (test zqrx=113) Rare SOURCE(BEAKER) (test gwoo=3803) Urine, Voided CT, CAROTID, [id number] 16:48:00FINAL REPORT CTA head and neck with [...] left and mild to moderate right mid PAPERHANGER ASSISTANT stenoses and mild left intradural vertebral artery stenosis. There is mild carotid siphon atherosclerosis. Otherwise no high grade proximal sun'aq of Merchant stenosis or major branch occlusion [...] left and mild to moderate right mid PAPERHANGER ASSISTANT stenoses, and other lesser intracranial atherosclerotic changes as discussed. 4. Nonspecific bilateral ground glass lung opacities, which could reflect edema or atypical pneumonitis. Advise correlation with chest imaging. Signed: Aaron Moulton MDReport Verified Date/Time: 12/07/2016 16:48:08 Reading Location: [address] Neuro Reading Room [facility] [id number] 16:48:00FINAL REPORT CTA head and neck with [...] left and mild to moderate right mid PAPERHANGER ASSISTANT stenoses and mild left intradural vertebral artery stenosis. There is mild carotid siphon atherosclerosis. Otherwise no high grade proximal sun'aq of Merchant stenosis or major branch occlusion [...] left and mild to moderate right mid PAPERHANGER ASSISTANT stenoses, and other lesser intracranial atherosclerotic changes as discussed. 4. Nonspecific bilateral ground glass lung opacities, which could reflect edema or atypical pneumonitis. Advise correlation with chest imaging. Signed: Aaron Moulton MDRort Verified Date/Time: 12/07/2016 16:48:08 Reading Location: [address] Neuro Reading Room CREATINE KINASE (CK), TOTAL AND [id number] 14:16:00 Test Item Value Reference Range Comments CREATINE KINASE TOTAL (BEAKER) (test jmoe=520) 85 U/L 29-200 CREATINE KINASE-MB (BEAKER) (test qify=171) 3.5 ng/mL 0.0-6.6 CREATINE KINASE-MB INDEX (BEAKER) (test ectd=259) 4.1 % CK-MB Reference Range:<6.7 Normal6.7-10.0 Borderline>10.0 AbnormalTROPONIN [id number] 14:16:00 Test Item Value Reference Range Comments TROPONIN I (BEAKER) (test dwhv=477) < ng/mL 0.00-0.03 Troponin I (TnI) levels [...] failure, acidosis, acute neurological disease, and persistent tachyarrhythmia.[id number] 14:09:00 Test Item Value Reference Range Comments MAGNESIUM (BEAKER) (test blza=024) 2.1 mg/dL 1.6-2.6 BASIC METABOLIC [id number] 14:09:00 Test Item Value Reference Range Comments SODIUM (BEAKER) (test 133 meq/L 136-145 tovy=924) POTASSIUM (BEAKER) (test 4.2 meq/L 3.5-5.1 jqlk=755) CHLORIDE (BEAKER) (test 98 meq/L 98-107 olbd=026) CO2 (BEAKER) (test 28 meq/L 22-29 fcpp=971) BLOOD UREA NITROGEN 14 mg/dL 7-21 (BEAKER) (test xnid=527) CREATININE (BEAKER) (test 0.75 mg/dL 0.57-1.25 zetm=925) GLUCOSE RANDOM (BEAKER) 125 mg/dL 70-105 (test tdty=963) CALCIUM (BEAKER) (test 9.1 mg/dL 8.4-10.2 kxly=625) EGFR (BEAKER) (test 104 mL/min/1.73 sq m ESTIMATED GFR IS NOT quqy=7860) ACCURATE CREATININE CLEARANCE IN PREDICTING GLOMERULAR FILTRATION RATE. ESTIMATED GFR IS NOT APPLICABLE FOR DIALYSIS PATIENTS. [id number] 13:58:00 Test Item Value Reference Range Comments PROTIME (BEAKER) (test qsnf=046) 14.7 seconds 11.7-14.7 INR (BEAKER) (test npyk=255) 1.2 <=5.9 PARTIAL THROMBOPLASTIN TIME (BEAKER) (test 23.4 seconds 22.5-36.0 crwh=941) RECOMMENDED COUMADIN/WARFARIN INR THERAPY RANGESSTANDARD DOSE: 2.0 - 3.0 Includes: PROPHYLAXIS forvenous thrombosis, systemic embolization; TREATMENT for venous thrombosis and/or pulmonary embolus.HIGH RISK: Target INR is 2.5-3.5 for patients with mechanical heart valves.CBC W/PLT COUNT & AUTO [id number] 13:52:00 Test Item Value Reference Range Comments WHITE BLOOD CELL COUNT (BEAKER) (test vguh=986) 3.0 K/ L 3.5-10.5 RED BLOOD CELL COUNT (BEAKER) (test dvys=361) 3.71 M/ L 4.63-6.08 HEMOGLOBIN (BEAKER) (test oswl=388) 12.0 GM/DL 13.7-17.5 HEMATOCRIT (BEAKER) (test kcne=131) 35.7 % 40.1-51.0 MEAN CORPUSCULAR VOLUME (BEAKER) (test aiwn=673) 96.2 fL 79.0-92.2 MEAN CORPUSCULAR HEMOGLOBIN (BEAKER) (test 32.3 pg 25.7-32.2 egkj=613) MEAN CORPUSCULAR HEMOGLOBIN CONC (BEAKER) (test 33.6 GM/DL 32.3-36.5 cgjf=330) RED CELL DISTRIBUTION WIDTH (BEAKER) (test 13.1 % 11.6-14.4 yiju=827) PLATELET COUNT (BEAKER) (test dxxg=376) 136 K/CU MM 150-450 MEAN PLATELET VOLUME (BEAKER) (test wakf=546) 11.0 fL 9.4-12.4 NUCLEATED RED BLOOD CELLS (BEAKER) (test 0 /100 WBC 0-0 rfjg=175) NEUTROPHILS RELATIVE PERCENT (BEAKER) (test 75 % ahck=976) LYMPHOCYTES RELATIVE PERCENT (BEAKER) (test 13 % ztha=885) MONOCYTES RELATIVE PERCENT (BEAKER) (test 10 % rmvi=561) EOSINOPHILS RELATIVE PERCENT (BEAKER) (test 1 % adtg=727) BASOPHILS RELATIVE PERCENT (BEAKER) (test 0 % mnvs=624) NEUTROPHILS ABSOLUTE COUNT (BEAKER) (test 2.22 K/ L 1.78-5.38 aktu=217) LYMPHOCYTES ABSOLUTE COUNT (BEAKER) (test 0.39 K/ L 1.32-3.57 nedd=703) MONOCYTES ABSOLUTE COUNT (BEAKER) (test 0.30 K/ L 0.30-0.82 pdlw=748) EOSINOPHILS ABSOLUTE COUNT (BEAKER) (test 0.02 K/ L 0.04-0.54 hawt=563) BASOPHILS ABSOLUTE COUNT (BEAKER) (test 0.01 K/ L 0.01-0.08 onhl=087) IMMATURE GRANULOCYTES-RELATIVE PERCENT (BEAKER) 0 % 0-1 (test bhmd=1154) POCT-GLUCOSE [id number] 13:46:00 Test Item Value Reference Range Comments POC-GLUCOSE METER (CIARA) 136 mg/dL 70-110 TESTED AT [facility] [address] (test kuni=7062) [facility] [address] CT, BRAIN/STROKE [id number] 13:28:00Reason for exam:->loss of consciousnessFINAL REPORT CT [...] [place]oul[place] Verified Date/Time: 12/07/2016 13:28:57 Reading Location: [facility] B1 C013V Neuro Reading Room
--- OUTSIDE RECORDS SUMMARY | 2018-07-03 18:03 | XMS REPORT | Clinical Summary ---
:1950 Author Organization [facility] Address [address] [place] [address] Care Team Providers Name Role Phone Sharppatricia [...] Not on file Results Not on fileafter 07/02/2017 Insurance Payer Benefit Plan / Group Subscriber ID Type Phone Address MEDICARE MEDICARE A B xxxxxxxxxx Medicare MCR SUPPLEMENT/INDIVIDUAL AARP/[facility] xxxxxxxxxxx [facility] Advance Directives For more information, please contact:[address] [phone] Code Status Date Activated Date Inactivated Comments Full Code 12/07/2016 6:45 PM 12/10/2016 6:33 PM This code status was determined by: Patient
--- NOTE | 2018-07-03 19:06 | RAD REPORT ---
EXAM DESCRIPTION: RAD - Chest Pa And Lat (2 Views) - 07/03/2018 6:52 pm CLINICAL HISTORY: cough, fever Chest pain. COMPARISON: Chest Pa And Lat (2 Views) dated 12/30/2017; Chest Single View dated 06/08/2017; Chest Sin gle View dated 04/16/2017; Abdomen 1 View (KUB) dated 02/16/2017 FINDINGS: Mildly prominent interstitial lung markings are seen, which can be seen in asthma, viral p neumonitis or chronic bronchitis. No focal consolidation seen typical of pneumonia. The heart is uppe r limit normal in size. No displaced fractures. Aortic atherosclerosis.
[2018-07-03 19:08] LABS: MPV 9.3 fL (7.6-11.3)
[2018-07-03 19:21] LABS: ALT/SGPT 31 U/L (12-78); AST/SGOT 25 U/L (15-37); Absolute Lymphocytes (CBC) 0.3 K/uL (0.7-4.9); Absolute Monocytes 0.5 K/uL (0.1-1.3); Albumin 4.3 g/dL (3.4-5.0); Alkaline Phosphatase 124 U/L (45-117); BUN Blood Urea Nitrogen 11 mg/dL (7-18); Basophils % 0.2 % (0-1.3); Bicarbonate 28 mmol/L (21-32); Bilirubin Total 0.2 mg/dL (0.2-1.0); Eosinophils % 0.1 % (0-4.4); Glucose Level 106 mg/dL (74-106); Hematocrit 36.5 % (39.6-49.0); Lymphocytes % 6.4 % (15.3-44.8); Monocytes % 10.2 % (3.3-12.3); Potassium 3.6 mmol/L (3.5-5.1); Protein, Total 7.6 g/dL (6.4-8.2); Sodium Level 132 mmol/L (136-145)
[2018-07-03 19:27] LABS: Creatine Phosphokinase 154 U/L (39-308); Troponin (Emerg Dept Use Only) < 0.02 ng/mL (0.0-0.045)
--- NOTE | 2018-07-03 20:01 | EDPHYS ---
Physician Documentation [facility] Name: Eleuterio Baird Age: 67 yrs Sex: Male : 1950 Arrival Date: 07/03/2018 Time: 18:02 Bed 7 Private MD: Maddie Parham C ED Physician Timothy Wong HPI: 07/03 18:32 This 67 yrs old Male presents to ER via Wheelchair with complaints of Chest jmm Congestion. 20:53 Onset: The symptoms/episode began/occurred 3 day(s) ago. Modifying factors: The jmm symptoms are alleviated by nothing. the symptoms are aggravated by nothing. Associated signs and symptoms: Pertinent positives: fever. This is a 67 year old male with a history of MS, CAD that presents to the ED with complaints of cough, congestion beginning 3 to 4 days ago with a fever beginning today. Denies vomiting or diarrhea. Denies chest pain. Denies shortness of breath. . Historical: - Allergies: 18:12 amantadine HCl; la1 18:12 Flagyl; la1 - PMHx: 18:12 heart stents x5; MS; Myocardial infarction; Pneumonia; syncope; la1 - Immunization history:: Adult Immunizations up to date. - Social history:: Smoking status: Patient/guardian denies using tobacco. - Ebola Screening: : No symptoms or risks identified at this time. ROS: 20:53 Constitutional: Positive for body aches, fever. jmm 20:53 ENT: Negative for sinus congestion. 20:53 Respiratory: Positive for cough. 20:53 All other systems are negative. Exam: 20:53 Constitutional: This is a well developed, well nourished patient who is awake, alert, jmm and in no acute distress. Head/Face: atraumatic. Eyes: EOMI, no conjunctival erythema appreciated 20:53 Chest/axilla: Normal chest wall appearance and motion. Cardiovascular: Regular rate and rhythm. No edema appreciated 20:53 ENT: Posterior pharynx: erythema, that is mild. 20:53 Cardiovascular: Rate: normal, Rhythm: regular. 20:53 Respiratory: the patient does not display signs of respiratory distress, Respirations: normal, Breath sounds: are clear throughout. 20:53 Abdomen/GI: Inspection: abdomen appears normal, Bowel sounds: normal, Palpation: abdomen is soft and non-tender, in all quadrants. 20:53 Back: ROM is normal. 20:53 Musculoskeletal/extremity: ROM: intact in all extremities. 20:53 Skin: Appearance: Color: normal in color. 20:53 Neuro: Orientation: is normal, Mentation: is normal, Memory: is normal. 20:53 Psych: Behavior/mood is pleasant, cooperative. Vital Signs: 18:14 Resp 16; Temp 100.2; Weight 81.65 kg; Height 5 ft. 7 in. (170.18 cm); Pain 0/10; la1 18:15 BP 137 / 55; Pulse 77; Pulse Ox 96% on R/A; la1 18:14 Body Mass Index 28.19 (81.65 kg, 170.18 cm) la1 MDM: 18:32 Patient medically screened. [facility] 20:00 Data reviewed: vital signs, nurses notes. Counseling: I had a detailed discussion with eduardo the patient and/or guardian regarding: the historical points, exam findings, and any diagnostic results supporting the discharge/admit diagnosis, the need for outpatient follow up, to return to the emergency department if symptoms worsen or persist or if there are any questions or concerns that arise at home. 20:53 ED course: Patient is alert and non toxic in appearance in the ED. Labs not concerning [facility] for sepsis or neutropenia. CXR clear. VS WNL in the ED. Patient given tamilfu in the ED. Patient will follow up with PCP tomorrow for reevaluation. Patient and given strict return precautions. Patient understood and agrees with the plan of care. . 07/03 18:33 Order name: CBC with Diff; Complete Time: 19:27 [facility] 07/03 18:33 Order name: CMP; Complete Time: 19:22 [facility] 07/03 18:33 Order name: Procalcitonin; Complete Time: 19:44 [facility] 07/03 18:33 Order name: Lactate; Complete Time: 19:15 [facility] 07/03 18:33 Order name: Blood Culture Adult (2) [facility] 07/03 18:34 Order name: Flu [facility] 07/03 18:33 Order name: Saline Lock; Complete Time: 18:52 [facility] 07/03 18:33 Order name: Chest Pa And Lat (2 Views) XRAY; Complete Time: 19:09 [facility] 07/03 18:34 Order name: Influenza Screen (A ; Complete Time: 19:34 [facility] 07/03 18:35 Order name: Troponin (emerg Dept Use Only); Complete Time: 19:27 [facility] 07/03 18:35 Order name: CPK; Complete Time: 19:27 [facility] 07/03 18:35 Order name: EKG - Nurse/Tech; Complete Time: 19:03 [facility] Administered Medications: 20:10 Drug: Tamiflu 75 mg Route: PO; ak1 20:10 Follow up: Response: No adverse reaction ak1 Disposition: 07/04 08:04 Co-signature as Attending Physician, Timothy Wong MD I agree with the assessment and yaya plan of care. Disposition: 07/03/18 20:00 Discharged to Home. Impression: Influenza due to certain identified influenza viruses. - Condition is Stable. - Discharge Instructions: Influenza, Adult. - Prescriptions for Tamiflu 75 mg Oral Capsule - take 1 tablet by ORAL route every 12 hours for 5 days; 10 tablet. - Medication Reconciliation Form, Thank You Letter, Antibiotic Education, Prescription Opioid Use form. - Follow up: Maddie Parham MD; When: Tomorrow; Reason: Recheck today's complaints, Continuance of care, Re-evaluation by your physician. Signatures: Dispatcher [employer] [facility] Timothy Wong MD MD cha Mickail, Joel, PA PA [facility] Luis Enrique Phillips, RN RN la1 Nicole Grewal RN RN ak1 Corrections: (The following items were deleted from the chart) 07/03 20:19 20:00 07/03/2018 20:00 Discharged to Home. Impression: Influenza due to certain ak1 identified influenza viruses. Condition is Stable. Forms are Medication Reconciliation Form, Thank You Letter, Antibiotic Education, Prescription Opioid Use. Follow up: Maddie Parham; When: Tomorrow; Reason: Recheck today's complaints, Continuance of care, Re-evaluation by your physician. [facility]
--- NOTE | 2018-07-03 20:01 | ER ---
Nurse's Notes [facility] Name: Eleuterio Baird Age: 67 yrs Sex: Male : 1950 Arrival Date: 07/03/2018 Time: 18:02 Bed 7 Private MD: Maddie Parham C Diagnosis: Influenza due to certain identified influenza viruses Presentation: 07/03 18:12 Presenting complaint: Patient states: Cough for about 3 days, temps have been running la1 low. I have a compromised immune system so I am at high risk for PNA. Transition of care: patient was not received from another setting of care. Onset of symptoms was July 03, 2018. Risk Assessment: Do you want to hurt yourself or someone else? Patient reports no desire to harm self or others. Initial Sepsis Screen: Does the patient meet any 2 criteria? No. Patient's initial sepsis screen is negative. Does the patient have a suspected source of infection? No. Patient's initial sepsis screen is negative. Care prior to arrival: None. 18:12 Method Of Arrival: Wheelchair la1 18:12 Acuity: SALOME 3 la1 Historical: - Allergies: 18:12 amantadine HCl; la1 18:12 Flagyl; la1 - PMHx: 18:12 heart stents x5; MS; Myocardial infarction; Pneumonia; syncope; la1 - Immunization history:: Adult Immunizations up to date. - Social history:: Smoking status: Patient/guardian denies using tobacco. - Ebola Screening: : No symptoms or risks identified at this time. Screenin:53 Abuse screen: Denies threats or abuse. Denies injuries from another. Nutritional mg2 screening: No deficits noted. Tuberculosis screening: No symptoms or risk factors identified. Fall Risk IV access (20 points). Assessment: 18:52 General: Appears in no apparent distress. comfortable, Behavior is calm, cooperative. mg2 Pain: Denies pain. Neuro: Level of Consciousness is awake, alert, obeys commands, Oriented to person, place, time, situation. Cardiovascular: Capillary refill < 3 seconds Patient's skin is warm and dry. Respiratory: Airway is patent Respiratory effort is even, unlabored, Respiratory pattern is regular, symmetrical. Respiratory: Breath sounds are clear bilaterally. in right upper lobe, left upper lobe, right middle lobe, left lower lobe and right lower lobe. Respiratory: Reports cough that is productive, since 3 days. GI: No signs and/or symptoms were reported involving the gastrointestinal system. : No signs and/or symptoms were reported regarding the genitourinary system. EENT: No signs and/or symptoms were reported regarding the EENT system. Derm: Skin is intact, is healthy with good turgor, Skin is pink, warm \T\ dry. normal. Musculoskeletal: Circulation, motion, and sensation intact. Capillary refill < 3 seconds. Vital Signs: 18:14 Resp 16; Temp 100.2; Weight 81.65 kg; Height 5 ft. 7 in. (170.18 cm); Pain 0/10; la1 18:15 BP 137 / 55; Pulse 77; Pulse Ox 96% on R/A; la1 18:14 Body Mass Index 28.19 (81.65 kg, 170.18 cm) la1 ED Course: 18:02 Patient arrived in ED. as 18:02 Maddie Parham MD is Private Physician. as 18:14 Triage completed. la1 18:14 Arm band placed on left wrist. la1 18:21 Chandler Archuleta PA is PHCP. jmm 18:21 Timothy Wong MD is Attending Physician. jmm 18:34 Barry Flynn, HARPER is Primary Nurse. mg2 18:50 Chest Pa And Lat (2 Views) XRAY In Process Unspecified. EDMS 18:53 No provider procedures requiring assistance completed. Inserted saline lock: 20 gauge mg2 in left antecubital area, using aseptic technique. Blood collected. 18:54 Patient has correct armband on for positive identification. mg2 20:00 Maddie Parham MD is Referral Physician. jmm 20:18 IV discontinued, intact, bleeding controlled, No redness/swelling at site. Pressure ak1 dressing applied. Administered Medications: 20:10 Drug: Tamiflu 75 mg Route: PO; ak1 20:10 Follow up: Response: No adverse reaction ak1 Outcome: 20:00 Discharge ordered by . jm 20:18 Discharged to home via wheelchair, with family. ak1 20:18 Condition: good 20:18 Discharge instructions given to patient, family, Instructed on discharge instructions, follow up and referral plans. no drinking with medication, no driving heavy equipment, medication usage, Demonstrated understanding of instructions, follow-up care, medications, Prescriptions given X 1. 20:19 Patient left the ED. ak1 Signatures: Dispatcher [employer] EDMS Chandler Archuleta PA PA jmm Martinez, Amelia as Attema, Lee RN RN la1 Nicole Grewal RN RN ak1 Barry Flynn RN RN mg2
[2018-07-03] MEDS ORDERED: OSELTAMIVIR 75 MG CAP ONE (20:16)
[2018-07-03 20:24] VITALS: TEMP 100.2
[2018-07-03 20:25] VITALS: BP 137/55; O2SAT 96
--- NOTE | 2018-07-05 11:36 | EKG ---
Test Date: 2018-07-03 Test Time: 18:58:43 [place] Packer: MEASUREMENT RESULTS: Intervals: Rate: 71 [place]: 188 QRSD: 100 QT: 384 QTc: 417 [place]: P: 35 [place]: 188 QRS: 6 T: 35 INTERPRETIVE STATEMENTS: Normal sinus rhythm Normal ECG Compared to ECG 06/09/2017 05:34:50 Sinus bradycardia no longer present Left ventricular hypertrophy no longer present Early repolarization no longer present Electronically Signed On 07-04-18 10:50:41 CDT by Jase Liu
== END 2018-07-03 20:19 | disposition home or self-care (01) ==
LOC: ER 17:59
DX: J10.1 Influenza due to other identified influenza virus with other respiratory manifestations (principal); I25.2 Old myocardial infarction
CPT/HCPCS: 36415; 71046; 80053; 82550; 83605; 84145; 84484; 85025; 87040; 87804; 93005; 99284

== ENCOUNTER 2019-04-23 17:03 | Emergency (ER) | payer OTHER, MEDICARE ==
--- OUTSIDE RECORDS SUMMARY | 2019-04-23 17:06 | XMS REPORT ---
:1950 [facility] Address [address] [place] [address] Dr. Garcia [address] [place] [id number] Care Team Providers Name Role Phone KARUNA [...] Value Reference Range Comments SCAN RESULT (test uhca=[id number]) Result comments: STREPTOCOCCUS SPECIES DETECTED (Non-Strep Pneumo; Non-Group A or Group B) First line therapy: Vancomycin De-escalate based on susceptibilities Other organisms and resistance markers not contained in this PCR panel cannot be excluded and follow-up of traditional culture results is required. This sample was tested at the [facility] Clinical Microbiology Laboratory using the [employer] Blood Culture ID Panel. This test is FDA cleared for in vitro diagnostic use and has been verified and approved by the [facility] Clinical Microbiology laboratory for clinical use. Reference Range: Not DetectedBLOOD [id number] 13:19:00 Test Item Value Reference Range Comments CULTURE (BEAKER) From Aerobic Bottle Only (test fkpr=0642) Alpha-hemolytic streptococcus GRAM STAIN RESULT From aerobic bottle (BEAKER) (test only: gram positive mivw=4156) cocci in chains STREPTOCOCCUS SPECIES DETECTED(Non-Strep Pneumo; Non-Group A or Group B)First line therapy: VancomycinDe-escalate based on susceptibilitiesOther organisms and resistance markers not contained in this PCR panel cannot be excluded and follow-up of traditional culture results is required. This sample was tested at the [facility] Clinical Microbiology Laboratory using the [employer] Blood Culture ID Panel. This test is FDA cleared for in vitro diagnostic use and has been verified and approved by the [facility] Clinical Microbiology laboratory for clinical use. Reference Range: Not DetectedBLOOD [id number] 19:00:00 Test Item Value Reference Range Comments CULTURE (BEAKER) (test jchk=2443) No growth in 5 days BLOOD [id number] 19:00:00 Test Item Value Reference Range Comments CULTURE (BEAKER) (test hrtz=2903) No growth in 5 days CORTISOL,60 [id number] 15:41:00 Test Item Value Reference Range Comments CORTISOL BASELINE NETWORKED (BEAKER) (test 11.8 mcg/dL ysjx=9005) CORTISOL 30 MINUTE NETWORKED (BEAKER) (test 20.4 mcg/dL eyny=6489) CORTISOL, 60 MINUTE (BEAKER) (test dlcd=7042) 14.5 ug/dL ACTH STIMULATION TEST INTERPRETATION GUIDELINES(Synonyms: [...] cortisol level 60 minutes after cosyntropin administration.CORTISOL,30 [id number] 15:40:00 Test Item Value Reference Range Comments CORTISOL BASELINE NETWORKED (BEAKER) (test 11.8 mcg/dL fgqa=6289) CORTISOL, 30 MINUTE (BEAKER) (test kobg=5595) 20.4 ug/dL ACTH STIMULATION TEST INTERPRETATION GUIDELINES(Synonyms: [...] or septicshock: According to a study by aCroline et al (JUAN J 2000,283( 8):4230-45), the ACTH Stimulation Test provides important prognostic [...] serum cortisol level 60 minutes after cosyntropin administration.CORTISOL,[id number] 11:51:00 Test Item Value Reference Range Comments CORTISOL, BASELINE (CIARA) (test ceel=2290) 11.8 ug/dL ACTH STIMULATION TEST INTERPRETATION GUIDELINES(Synonyms: [...] by Caroline et al (JUAN J 2000,283( 8):3905-45), the ACTH Stimulation Test provides important prognostic [...] cortisol level 60 minutes after cosyntropin administration.URINE [id number] 10:21:00 Test Item Value Reference Range Comments CULTURE (BEAKER) (test fdes=1553) No growth RAD, CHEST, 1 VIEW, NON [id number] 08:44:00Reason for exam:->pnaShould this be performed at [...] MDReport Verified Date/Time: 12/09/2016 08:44:43 Reading Location: [facility] Diagnostic Imaging Reading Room [place] [address] [id number] 08:08:00 Test Item Value Reference Range Comments MAGNESIUM (BEAKER) (test kpmn=488) 1.9 mg/dL 1.6-2.6 BASIC METABOLIC [id number] 08:08:00 Test Item Value Reference Range Comments SODIUM (BEAKER) (test 133 meq/L 136-145 sniq=953) POTASSIUM (BEAKER) (test 3.9 meq/L 3.5-5.1 nggt=460) CHLORIDE (BEAKER) (test 100 meq/L 98-107 senm=888) CO2 (BEAKER) (test 27 meq/L 22-29 rfsh=860) BLOOD UREA NITROGEN 14 mg/dL 7-21 (BEAKER) (test slry=435) CREATININE (BEAKER) (test 0.60 mg/dL 0.57-1.25 dbbl=091) GLUCOSE RANDOM (BEAKER) 90 mg/dL 70-105 (test gviy=503) CALCIUM (BEAKER) (test 8.8 mg/dL 8.4-10.2 usbc=301) EGFR (BEAKER) (test 135 mL/min/1.73 sq m ESTIMATED GFR IS NOT wuwf=2845) ACCURATE CREATININE CLEARANCE IN PREDICTING GLOMERULAR FILTRATION RATE. ESTIMATED GFR IS NOT APPLICABLE FOR DIALYSIS PATIENTS. [id number] 06:44:00 Test Item Value Reference Range Comments CORTISOL, TOTAL (BEAKER) (test bpos=2146) 6.2 ug/dL 3.7-19.4 CALCIUM, [id number] 06:16:00 Test Item Value Reference Range Comments CALCIUM IONIZED (BEAKER) (test rznk=322) 0.93 mmol/L 1.12-1.27 PH, BLOOD (BEAKER) (test xtpy=9219) 7.50 EEG AWAKE AND [id number] 17:34:00Reason for exam:->SyncopeDATE OF EE12-08-2016 DATE OF REPORT: 12-08-2016 ACC: [id number] Start time: 12: 49 Stoptime: 13:10 ICD-10: R55 CPT Code: 98281 HISTORY: recurrent syncopal episodes MEDICATIONS THAT COULDAFFECT EEG: TECHNICAL SUMMARY: This is a digital EEG recorded with 32 input channels on a [employer] system and then reviewed with bipolar and [...] Comments NEUTROPHILS - REL (DIFF) (BEAKER) (test qvhb=0993) 69 % LYMPHOCYTES - REL (DIFF) (BEAKER) (test sthc=1387) 23 % MONOCYTES - REL (DIFF) (BEAKER) (test qaws=9129) 7 % BANDS - REL (DIFF) (BEAKER) (test imtb=3330) 1 % 0-10 NEUTROPHILS - ABS (DIFF) (BEAKER) (test kwje=0777) 1.86 K/ L 1.80-8.00 LYMPHOCYTES - ABS (DIFF) (BEAKER) (test qvox=2228) 0.62 K/ L 1.48-4.50 MONOCYTES - ABS (DIFF) (BEAKER) (test nwuw=6552) 0.19 K/ L 0.00-1.30 BANDS-ABS (DIFF) (BEAKER) (test mnjs=0395) 0.0 K/ L 0.0-0.8 TOTAL COUNTED (BEAKER) (test tbrh=4342) 100 BANDS + SEGMENTED NEUTROPHILS (BEAKER) (test 1.89 auwt=4004) WBC MORPHOLOGY (BEAKER) (test zvea=913) Normal RBC MORPHOLOGY (BEAKER) (test wauf=807) Normal LARGE PLT(BEAKER) (test ijvm=0223) Present CALCIUM, [id number] 07:03:00 Test Item Value Reference Range Comments CALCIUM IONIZED (BEAKER) (test zmah=008) 1.14 mmol/L 1.12-1.27 PH, BLOOD (BEAKER) (test zbnm=8232) 7.37 [id number] 07:01:00 Test Item Value Reference Range Comments MAGNESIUM (BEAKER) (test cyxm=542) 2.0 mg/dL 1.6-2.6 BASIC METABOLIC [id number] 07:01:00 Test Item Value Reference Range Comments SODIUM (BEAKER) (test 137 meq/L 136-145 jqww=042) POTASSIUM (BEAKER) (test 4.0 meq/L 3.5-5.1 ydxd=908) CHLORIDE (BEAKER) (test 102 meq/L 98-107 dehg=175) CO2 (BEAKER) (test 28 meq/L 22-29 yfvg=154) BLOOD UREA NITROGEN 12 mg/dL 7-21 (BEAKER) (test kqoe=328) CREATININE (BEAKER) (test 0.61 mg/dL 0.57-1.25 safb=328) GLUCOSE RANDOM (BEAKER) 85 mg/dL 70-105 (test xcbp=947) CALCIUM (BEAKER) (test 9.0 mg/dL 8.4-10.2 rram=694) EGFR (BEAKER) (test 132 mL/min/1.73 sq m ESTIMATED GFR IS NOT csqx=9471) ACCURATE CREATININE CLEARANCE IN PREDICTING GLOMERULAR FILTRATION RATE. ESTIMATED GFR IS NOT APPLICABLE FOR DIALYSIS PATIENTS. CBC W/PLT COUNT & AUTO [id number] 06:30:00 Test Item Value Reference Range Comments WHITE BLOOD CELL COUNT (BEAKER) (test tdra=004) 2.7 K/ L 3.5-10.5 RED BLOOD CELL COUNT (BEAKER) (test sjtn=444) 3.90 M/ L 4.63-6.08 HEMOGLOBIN (BEAKER) (test bjjw=967) 12.6 GM/DL 13.7-17.5 HEMATOCRIT (BEAKER) (test xbbr=359) 37.5 % 40.1-51.0 MEAN CORPUSCULAR VOLUME (BEAKER) (test hlen=564) 96.2 fL 79.0-92.2 MEAN CORPUSCULAR HEMOGLOBIN (BEAKER) (test 32.3 pg 25.7-32.2 qquz=908) MEAN CORPUSCULAR HEMOGLOBIN CONC (BEAKER) (test 33.6 GM/DL 32.3-36.5 durm=591) RED CELL DISTRIBUTION WIDTH (BEAKER) (test 13.0 % 11.6-14.4 nwcc=058) PLATELET COUNT (BEAKER) (test kwxa=415) 126 K/CU MM 150-450 MEAN PLATELET VOLUME (BEAKER) (test dnus=211) 10.6 fL 9.4-12.4 NUCLEATED RED BLOOD CELLS (BEAKER) (test 0 /100 WBC 0-0 stfl=493) IMMATURE GRANULOCYTES-RELATIVE PERCENT (BEAKER) 0 % 0-1 (test vzhk=9269) URINALYSIS W/ [id number] 17:47:00 Test Item Value Reference Range Comments COLOR (BEAKER) (test vltz=102) Light Yellow CLARITY (BEAKER) (test mzcv=024) Clear SPECIFIC GRAVITY UA (BEAKER) (test xqul=824) 1.032 1.001-1.035 PH UA (BEAKER) (test klzv=874) 7.0 5.0-8.0 PROTEIN UA (BEAKER) (test pbyb=915) Negative Negative GLUCOSE UA (BEAKER) (test cqqp=631) Negative Negative KETONES UA (BEAKER) (test zlnk=515) Negative Negative BILIRUBIN UA (BEAKER) (test syep=701) Negative Negative BLOOD UA (BEAKER) (test oyka=874) Negative Negative NITRITE UA (BEAKER) (test lwiv=087) Negative Negative LEUKOCYTE ESTERASE UA (BEAKER) (test ptng=313) Negative Negative UROBILINOGEN UA (BEAKER) (test sggk=438) 0.2 mg/dL 0.2-1.0 RBC UA (BEAKER) (test bgan=881) 2 /HPF WBC UA (BEAKER) (test woqm=149) 6 /HPF BACTERIA (BEAKER) (test pgar=292) Rare SOURCE(BEAKER) (test qbok=1940) Urine, Voided CT, CAROTID, [id number] 16:48:00FINAL REPORT CTA head and neck with [...] left and mild to moderate right mid MASS SPEC stenoses and mild left intradural vertebral artery stenosis. There is mild carotid siphon atherosclerosis. Otherwise no high grade proximal tribe of [place] stenosis or major branch occlusion [...] left and mild to moderate right mid MASS SPEC stenoses, and other lesser intracranial atherosclerotic changes as discussed. 4. Nonspecific bilateral ground glass lung opacities, which could reflect edema or atypical pneumonitis. Advise correlation with chest imaging. Signed: Aaron Moulton MDReport Verified Date/Time: 12/07/2016 16:48:08 Reading Location: [address] Neuro [facility] [id number] 16:48:00FINAL REPORT CTA head and neck with [...] left and mild to moderate right mid MASS SPEC stenoses and mild left intradural vertebral artery stenosis. There is mild carotid siphon atherosclerosis. Otherwise no high grade proximal tribe of [place] stenosis or major branch occlusion [...] left and mild to moderate right mid MASS SPEC stenoses, and other lesser intracranial atherosclerotic changes as discussed. 4. Nonspecific bilateral ground glass lung opacities, which could reflect edema or atypical pneumonitis. Advise correlation with chest imaging. Signed: Aaron Moulton MDRort Verified Date/Time: 12/07/2016 16:48:08 Reading Location: [address] Neuro Reading Room CREATINE KINASE (CK), TOTAL AND [id number] 14:16:00 Test Item Value Reference Range Comments CREATINE KINASE TOTAL (BEAKER) (test hdke=687) 85 U/L 29-200 CREATINE KINASE-MB (BEAKER) (test rqmi=832) 3.5 ng/mL 0.0-6.6 CREATINE KINASE-MB INDEX (BEAKER) (test bhzs=120) 4.1 % CK-MB Reference Range:<6.7 Normal6.7-10.0 Borderline>10.0 AbnormalTROPONIN [id number] 14:16:00 Test Item Value Reference Range Comments TROPONIN I (BEAKER) (test spoz=444) < ng/mL 0.00-0.03 Troponin I (TnI) levels [...] failure, acidosis, acute neurological disease, and persistent tachyarrhythmia.[id number] 14:09:00 Test Item Value Reference Range Comments MAGNESIUM (BEAKER) (test oxgz=105) 2.1 mg/dL 1.6-2.6 BASIC METABOLIC [id number] 14:09:00 Test Item Value Reference Range Comments SODIUM (BEAKER) (test 133 meq/L 136-145 tzbg=750) POTASSIUM (BEAKER) (test 4.2 meq/L 3.5-5.1 ndxa=598) CHLORIDE (BEAKER) (test 98 meq/L 98-107 xzea=470) CO2 (BEAKER) (test 28 meq/L 22-29 cjxg=530) BLOOD UREA NITROGEN 14 mg/dL 7-21 (BEAKER) (test epdl=159) CREATININE (BEAKER) (test 0.75 mg/dL 0.57-1.25 bopf=516) GLUCOSE RANDOM (BEAKER) 125 mg/dL 70-105 (test dbsz=294) CALCIUM (BEAKER) (test 9.1 mg/dL 8.4-10.2 sull=461) EGFR (BEAKER) (test 104 mL/min/1.73 sq m ESTIMATED GFR IS NOT zehy=0435) ACCURATE CREATININE CLEARANCE IN PREDICTING GLOMERULAR FILTRATION RATE. ESTIMATED GFR IS NOT APPLICABLE FOR DIALYSIS PATIENTS. [id number] 13:58:00 Test Item Value Reference Range Comments PROTIME (BEAKER) (test dgyi=373) 14.7 seconds 11.7-14.7 INR (BEAKER) (test ugjl=088) 1.2 <=5.9 PARTIAL THROMBOPLASTIN TIME (BEAKER) (test 23.4 seconds 22.5-36.0 twes=554) RECOMMENDED COUMADIN/WARFARIN INR THERAPY RANGESSTANDARD DOSE: 2.0 - 3.0 Includes: PROPHYLAXIS forvenous thrombosis, systemic embolization; TREATMENT for venous thrombosis and/or pulmonary embolus.HIGH RISK: Target INR is 2.5-3.5 for patients with mechanical heart valves.CBC W/PLT COUNT & AUTO [id number] 13:52:00 Test Item Value Reference Range Comments WHITE BLOOD CELL COUNT (BEAKER) (test nsgc=352) 3.0 K/ L 3.5-10.5 RED BLOOD CELL COUNT (BEAKER) (test nnds=111) 3.71 M/ L 4.63-6.08 HEMOGLOBIN (BEAKER) (test sgrm=961) 12.0 GM/DL 13.7-17.5 HEMATOCRIT (BEAKER) (test qzmr=165) 35.7 % 40.1-51.0 MEAN CORPUSCULAR VOLUME (BEAKER) (test xtep=032) 96.2 fL 79.0-92.2 MEAN CORPUSCULAR HEMOGLOBIN (BEAKER) (test 32.3 pg 25.7-32.2 hfju=969) MEAN CORPUSCULAR HEMOGLOBIN CONC (BEAKER) (test 33.6 GM/DL 32.3-36.5 gcqc=007) RED CELL DISTRIBUTION WIDTH (BEAKER) (test 13.1 % 11.6-14.4 ireb=200) PLATELET COUNT (BEAKER) (test capk=839) 136 K/CU MM 150-450 MEAN PLATELET VOLUME (BEAKER) (test rnhn=432) 11.0 fL 9.4-12.4 NUCLEATED RED BLOOD CELLS (BEAKER) (test 0 /100 WBC 0-0 ursb=930) NEUTROPHILS RELATIVE PERCENT (BEAKER) (test 75 % kqkz=287) LYMPHOCYTES RELATIVE PERCENT (BEAKER) (test 13 % wbtq=837) MONOCYTES RELATIVE PERCENT (BEAKER) (test 10 % ohju=732) EOSINOPHILS RELATIVE PERCENT (BEAKER) (test 1 % mejx=211) BASOPHILS RELATIVE PERCENT (BEAKER) (test 0 % auwh=751) NEUTROPHILS ABSOLUTE COUNT (BEAKER) (test 2.22 K/ L 1.78-5.38 jnwn=879) LYMPHOCYTES ABSOLUTE COUNT (BEAKER) (test 0.39 K/ L 1.32-3.57 rsnr=730) MONOCYTES ABSOLUTE COUNT (BEAKER) (test 0.30 K/ L 0.30-0.82 jyzp=276) EOSINOPHILS ABSOLUTE COUNT (BEAKER) (test 0.02 K/ L 0.04-0.54 sgrl=084) BASOPHILS ABSOLUTE COUNT (BEAKER) (test 0.01 K/ L 0.01-0.08 yltq=380) IMMATURE GRANULOCYTES-RELATIVE PERCENT (BEAKER) 0 % 0-1 (test vbco=0036) POCT-GLUCOSE [id number] 13:46:00 Test Item Value Reference Range Comments POC-GLUCOSE METER (CIARA) 136 mg/dL 70-[address] [facility] [address] (test ctft=4197) [facility] [address] [address], BRAIN/STROKE [id number] 13:28:00Reason for exam:->loss of consciousnessFINAL REPORT CT [...] [place] Verified Date/Time: 12/07/2016 13:28:57 Reading Location: [facility] B1 C013V Neuro Reading Room
--- NOTE | 2019-04-23 17:56 | RAD REPORT ---
EXAM DESCRIPTION: Julieta Single View04/23/2019 5:49 pm CLINICAL HISTORY: Chest pain COMPARISON: June 2018 FINDINGS: The lungs appear clear of acute infiltrate. The heart is mildly enlarged IMPRESSION: No acute abnormalities displayed
[2019-04-23 18:12] LABS: Absolute Lymphocytes (CBC) 0.6 K/uL (0.7-4.9); Hematocrit 32.8 % (39.6-49.0); MPV 8.9 fL (7.6-11.3); Protime INR 0.96; RBC Red Blood Cell Count 3.45 M/uL (4.33-5.43)
[2019-04-23 18:24] LABS: BUN Blood Urea Nitrogen 13 mg/dL (7-18); Bicarbonate 29 mmol/L (21-32); Glucose Level 59 mg/dL (74-106); NT PRO-BNP 338 pg/mL (<125); Potassium 3.6 mmol/L (3.5-5.1); Sodium Level 132 mmol/L (136-145)
[2019-04-23 18:46] LABS: ALT/SGPT 19 U/L (12-78); AST/SGOT 18 U/L (15-37); Albumin 4.2 g/dL (3.4-5.0); Alkaline Phosphatase 106 U/L (45-117); Bilirubin Direct < 0.1 mg/dL (0-0.2); Bilirubin Total 0.2 mg/dL (0.2-1.0); Magnesium 2.1 mg/dL (1.8-2.4); Protein, Total 6.9 g/dL (6.4-8.2); Troponin (Emerg Dept Use Only) < 0.02 ng/mL (0.0-0.045)
--- NOTE | 2019-04-23 19:18 | ER ---
Nurse's Notes [facility] Name: Eleuterio Baird Age: 68 yrs Sex: Male : 1950 Arrival Date: 04/23/2019 Time: 17:05 Bed 8 Private MD: Maddie Parham C Diagnosis: Palpitations Presentation: 04/23 17:19 Presenting complaint: states: "We were just sitting there then he kept dozing off. ss Next thing you know he laid his head back and was asleep." Pt states, "I was just taking a nap. Pt has no complaints at this time. Transition of care: patient was not received from another setting of care. Onset of symptoms was April 23, 2019. Risk Assessment: Do you want to hurt yourself or someone else? Patient reports no desire to harm self or others. Initial Sepsis Screen: Does the patient meet any 2 criteria? No. Patient's initial sepsis screen is negative. Does the patient have a suspected source of infection? No. Patient's initial sepsis screen is negative. Care prior to arrival: None. 17:19 Method Of Arrival: Wheelchair ss 17:19 Acuity: SALOME 3 ss Historical: - Allergies: 17:23 amantadine HCl; ss 17:23 Flagyl; ss - PMHx: 17:23 heart stents x5; MS; Myocardial infarction; Pneumonia; syncope; R sided weakness; ss - Immunization history:: Adult Immunizations up to date. - Coronavirus screen:: The patient has NOT traveled to [place], [place], or [place] in the past 14 days. Proceed with normal triage process as indicated. - Social history:: Smoking status: Patient denies any tobacco usage or history of. - Ebola Screening: : Patient denies exposure to infectious person Patient denies travel to an Ebola-affected area in the 21 days before illness onset. Screenin:54 Abuse screen: Denies threats or abuse. Nutritional screening: No deficits noted. ae4 Tuberculosis screening: No symptoms or risk factors identified. Fall Risk None identified. Assessment: 17:20 General: Appears in no apparent distress. comfortable, slender, Behavior is calm, ae4 cooperative. Pain: Denies pain. denies pain. Pain began denies pain. Neuro: Level of Consciousness is awake, alert, obeys commands, Oriented to person, place, time, situation, Appropriate for age. Cardiovascular: skin cool and dry. Respiratory: Airway is patent Respiratory effort is even, unlabored. GI: Abdomen is round non-distended, Bowel sounds present X 4 quads. : No signs and/or symptoms were reported regarding the genitourinary system. EENT: No signs and/or symptoms were reported regarding the EENT system. Derm: Skin is pink, warm \\T\\ dry. 18:55 Reassessment: Patient appears in no apparent distress at this time. Patient and/or ae4 family updated on plan of care and expected duration. Pain level reassessed. Patient states feeling better. Vital Signs: 17:23 BP 146 / 62; Pulse 56; Resp 16; Temp 98.8(O); Pulse Ox 99% on R/A; Weight 80.74 kg; ae4 Height 5 ft. 7 in. (170.18 cm); Pain 0/10; 18:53 BP 142 / 63; Pulse 54; Resp 15; Pulse Ox 100% on 2 lpm NC; ae4 17:23 Body Mass Index 27.88 (80.74 kg, 170.18 cm) ae4 ED Course: 17:05 Patient arrived in ED. as 17:06 Maddie Parham MD is Private Physician. as 17:16 Kane Kirkpatrick NP is PHCP. pm1 17:16 Manpreet Lockwood MD is Attending Physician. pm1 17:22 Triage completed. ss 17:23 Arm band placed on right wrist. ss 17:42 Eric Rubi, HARPER is Primary Nurse. ae4 17:50 XRAY Chest (1 view) In Process Unspecified. EDMS 18:13 Patient has correct armband on for positive identification. Placed in gown. Bed in low ae4 position. Call light in reach. Side rails up X 1. telemetry monitor on. Pulse ox on. NIBP on. 18:13 Inserted saline lock: 20 gauge in left antecubital area, using aseptic technique. Blood ae4 collected. Patient maintains SpO2 saturation greater than 95% on room air. 20:05 No provider procedures requiring assistance completed. IV discontinued, intact, ls4 bleeding controlled, No redness/swelling at site. Pressure dressing applied. Administered Medications: No medications were administered Outcome: 19:17 Discharge ordered by . pm1 20:05 Discharged to home via wheelchair, with family. ls4 20:05 Condition: stable 20:05 Discharge instructions given to patient, family, Instructed on discharge instructions, follow up and referral plans. safety practices, Demonstrated understanding of instructions, follow-up care, medications, Prescriptions given X 20:06 Patient left the ED. ls4 Signatures: Dispatcher [employer] Shanta Song Shelby, RN RN ss Kane Kirkpatrick NP CLINICAL QUALITY ANALYST pm1 Ana Pride RN RN ls4 Eric Rubi RN RN ae4 Corrections: (The following items were deleted from the chart) 18:13 17:23 BP 146 / 62; Pulse 56bpm; Resp 16bpm; Pulse Ox 99% RA; 80.74 kg; Height 5 ft. 7 ae4 in.; BMI: 27.8; Pain 0/10; ss 18:54 18:53 Abuse screen: Denies threats or abuse. ae4 ae4 18:54 18:53 Nutritional screening: No deficits noted. ae4 ae4 18:54 18:53 Tuberculosis screening: No symptoms or risk factors identified. ae4 ae4 18:54 18:53 Fall Risk Fall in past 12 months (25 points). Secondary diagnosis (15 points) IV ae4 access (20 points). Ambulatory Aid- None/Bed Rest/Nurse Assist (0 pts). Gait- Normal/Bed Rest/Wheelchair (0 pts) Mental Status- Overestimates/Forgets Limitations (15 pts.). ae4
--- NOTE | 2019-04-23 19:18 | EDPHYS ---
Physician Documentation [facility] Name: Eleuterio Baird Age: 68 yrs Sex: Male : 1950 Arrival Date: 04/23/2019 Time: 17:05 Bed 8 Private MD: Maddie Parham C ED Physician Manpreet Lockwood HPI: 04/23 17:36 This 68 yrs old Male presents to ER via Wheelchair with complaints of Near pm1 Syncope. 17:36 The patient presents with a history of irregular heart beat, per blood pressure pm1 machine. Context: The symptoms occur during sleep. Onset: The symptoms/episode began/occurred today. possible near syncope. Patient reported to his that he felt sleepy and nodded off. She found that unusual and took his blood pressure. The machine reported irregular rhythm. 17:36 Associated signs and symptoms: The patient has no apparent associated signs or pm1 symptoms, Pertinent negatives: chest pain, fever, nausea, SOB, vomiting. Context: occurred at home, occurred while the patient was sitting, Just prior to the episode the patient experienced no apparent symptoms. Associated injury: The patient did not suffer any apparent associated injury. Current symptoms: Currently, the patient is not experiencing any symptoms. Patient denies any symptoms or complaints. Reports that he was just sleepy and taking a nap. Historical: - Allergies: 17:23 amantadine HCl; ss 17:23 Flagyl; ss - PMHx: 17:23 heart stents x5; MS; Myocardial infarction; Pneumonia; syncope; R sided weakness; ss - Immunization history:: Adult Immunizations up to date. - Coronavirus screen:: The patient has NOT traveled to [place], [place], or [place] in the past 14 days. Proceed with normal triage process as indicated. - Social history:: Smoking status: Patient denies any tobacco usage or history of. - Ebola Screening: : Patient denies exposure to infectious person Patient denies travel to an Ebola-affected area in the 21 days before illness onset. ROS: 17:36 Constitutional: Negative for fever, chills, and weight loss, Eyes: Negative for injury, pm1 pain, redness, and discharge, ENT: Negative for injury, pain, and discharge, Neck: Negative for injury, pain, and swelling, Cardiovascular: Negative for chest pain, palpitations, and edema, Respiratory: Negative for shortness of breath, cough, wheezing, and pleuritic chest pain, Abdomen/GI: Negative for abdominal pain, nausea, vomiting, diarrhea, and constipation, Back: Negative for injury and pain, : Negative for injury, bleeding, discharge, and swelling, MS/Extremity: Negative for injury and deformity, Skin: Negative for injury, rash, and discoloration, Neuro: Negative for headache, weakness, numbness, tingling, and seizure. Exam: 17:36 Constitutional: This is a well developed, well nourished patient who is awake, alert, pm1 and in no acute distress. Head/Face: Normocephalic, atraumatic. Neck: Trachea midline, no thyromegaly or masses palpated, and no cervical lymphadenopathy. Supple, full range of motion without nuchal rigidity, or vertebral point tenderness. No Meningismus. Chest/axilla: Normal chest wall appearance and motion. Nontender with no deformity. No lesions are appreciated. Cardiovascular: Regular rate and rhythm with a normal S1 and S2. No gallops, murmurs, or rubs. Normal PMI, no JVD. No pulse deficits. Respiratory: Lungs have equal breath sounds bilaterally, clear to auscultation and percussion. No rales, rhonchi or wheezes noted. No increased work of breathing, no retractions or nasal flaring. Abdomen/GI: Soft, non-tender, with normal bowel sounds. No distension or tympany. No guarding or rebound. No evidence of tenderness throughout. Back: No spinal tenderness. No costovertebral tenderness. Full range of motion. Skin: Warm, dry with normal turgor. Normal color with no rashes, no lesions, and no evidence of cellulitis. 17:36 Neuro: Orientation: is normal, Motor: is normal, moves all fours. Vital Signs: 17:23 BP 146 / 62; Pulse 56; Resp 16; Temp 98.8(O); Pulse Ox 99% on R/A; Weight 80.74 kg; ae4 Height 5 ft. 7 in. (170.18 cm); Pain 0/10; 18:53 BP 142 / 63; Pulse 54; Resp 15; Pulse Ox 100% on 2 lpm NC; ae4 17:23 Body Mass Index 27.88 (80.74 kg, 170.18 cm) ae4 MDM: 17:25 Patient medically screened. pm1 19:00 Data reviewed: vital signs. Data interpreted: Pulse oximetry: on room air is 100 %. pm1 Interpretation: normal. 19:17 Counseling: I had a detailed discussion with the patient and/or guardian regarding: the pm1 historical points, exam findings, and any diagnostic results supporting the discharge/admit diagnosis, lab results, radiology results, the need for outpatient follow up, to return to the emergency department if symptoms worsen or persist or if there are any questions or concerns that arise at home. 04/23 17:25 Order name: Basic Metabolic Panel; Complete Time: 18:31 pm1 04/23 17:25 Order name: CBC with Diff pm1 04/23 17:25 Order name: LFT's; Complete Time: 18:49 pm1 04/23 17:25 Order name: Magnesium; Complete Time: 18:49 pm1 04/23 17:25 Order name: NT PRO-BNP; Complete Time: 18:31 pm1 04/23 17:25 Order name: PT-INR; Complete Time: 18:23 pm04/23 17:25 Order name: Troponin (emerg Dept Use Only); Complete Time: 18:49 pm1 04/23 17:25 Order name: XRAY Chest (1 view); Complete Time: 17:58 pm04/23 17:25 Order name: EKG; Complete Time: 17:26 pm04/23 17:25 Order name: Cardiac monitoring; Complete Time: 18:13 pm1 04/23 17:25 Order name: EKG - Nurse/Tech; Complete Time: 18:53 pm04/23 17:25 Order name: IV Saline Lock; Complete Time: 18:13 pm04/23 17:25 Order name: TSH; Complete Time: 18:49 pm1 04/23 17:25 Order name: Labs collected and sent; Complete Time: 18:13 pm1 04/23 17:25 Order name: O2 Per Protocol; Complete Time: 18:13 pm04/23 17:25 Order name: O2 Sat Monitoring; Complete Time: 18:13 pm1 Administered Medications: No medications were administered Disposition: 04/24 10:01 Co-signature as Attending Physician, Manpreet Lockwood MD I agree with the assessment and kdr plan of care. Disposition: 04/23/19 19:17 Discharged to Home. Impression: Palpitations. - Condition is Stable. - Discharge Instructions: Palpitations. - Medication Reconciliation Form, Thank You Letter, Antibiotic Education, Prescription Opioid Use form. - Follow up: Emergency Department; When: As needed; Reason: Worsening of condition. Follow up: Private Physician; When: 2 - 3 days; Reason: Recheck today's complaints, Continuance of care, Re-evaluation by your physician. - Problem is new. - Symptoms have improved. Signatures: Dispatcher [employer] EDMS Manpreet Lockwood MD MD [facility] Roxane Pham RN RN ss Kane Kirkpatrick NP BILLET SHEARER pm1 Ana Pride RN RN ls4 Corrections: (The following items were deleted from the chart) 04/23 20:06 19:17 04/23/2019 19:17 Discharged to Home. Impression: Palpitations. Condition is ls4 Stable. Forms are Medication Reconciliation Form, Thank You Letter, Antibiotic Education, Prescription Opioid Use. Follow up: Emergency Department; When: As needed; Reason: Worsening of condition. Follow up: Private Physician; When: 2 - 3 days; Reason: Recheck today's complaints, Continuance of care, Re-evaluation by your physician. Problem is new. Symptoms have improved. pm1
[2019-04-23 20:10] LABS: Blood Morphology Comment NOTED (NOT SEEN); Platelet Estimate ADEQ; Poikilocytosis 1+
[2019-04-23 20:22] VITALS: BP 142/63; O2SAT 100
[2019-04-23 20:24] VITALS: TEMP 98.8
--- NOTE | 2019-04-24 06:56 | EKG ---
Test Date: 2019-04-23 Test Time: 18:44:08 Digital Cartographer: SUDEEP MEASUREMENT RESULTS: Intervals: Rate: 52 MS: 220 QRSD: 106 QT: 422 QTc: 392 [place]: P: 35 MS: 220 QRS: 0 T: 27 INTERPRETIVE STATEMENTS: Sinus bradycardia with 1st degree AV block Possible Left atrial enlargement Left ventricular hypertrophy Nonspecific T wave abnormality Abnormal ECG Compared to ECG 07/03/2018 18:58:43 First degree AV block now present Left ventricular hypertrophy now present T-wave abnormality now present Sinus rhythm no longer present Electronically Signed On 04-24-19 06:55:57 COMMODITY SUPERVISOR by Jase Liu
== END 2019-04-23 20:06 | disposition home or self-care (01) ==
LOC: ER 17:03
DX: R00.2 Palpitations (principal); Z88.3 Allergy status to other anti-infective agents
CPT/HCPCS: 36415; 71045; 80048; 80076; 83735; 83880; 84443; 84484; 85025; 85610; 93005; 99285

== ENCOUNTER 2021-02-12 06:21 | Day surgery (SDC) | payer OTHER, MEDICARE ==
[2021-02-12] MEDS ORDERED: LIDOCAINE 1% MPF 5 ML VIAL ONE (06:27)
[2021-02-12] MEDS ORDERED: propofoL 200 MG/20 ML VIAL IV ONE (06:27)
[2021-02-12] MEDS ORDERED: Ringers Lactate 1,000 ML IV ONE (06:54)
[2021-02-12] MEDS ORDERED: GLYCOPYRROLATE 0.2 MG/ML SYR ONE (07:20)
--- NOTE | 2021-02-12 08:03 | ENDO RPT ---
[address], [address] COLONOSCOPY PROCEDURE REPORT EXAM DATE: 02/12/2021 PATIENT NAME: Eleuterio Baird MR #: [id number] BIRTHDATE: 1950 ATTENDING: Juan Acuña MD STATUS: outpatient WELL TREATMENT OFFSIDER: Olena Linares RN and Yuki MUNOZ INDICATIONS: The patient is a 70 yr old Male here for a colonoscopy due to personal history of colon polyps PROCEDURE PERFORMED: Colonoscopy MEDICATIONS: Per Anesthesia. ESTIMATED BLOOD LOSS: None CONSENT: The patient understands the risks and benefits of the procedure and understands that these risks include, but are not limited to: sedation, allergic reaction, infection, perforation and/or bleeding. Alternative means of evaluation and treatment include, among others: physical exam, x-rays, and/or surgical intervention. The patient elects to proceed with this endoscopic procedure. DESCRIPTION OF PROCEDURE: During intra-op preparation period all mechanical medical equipment was checked for proper function. Hand hygiene and appropriate measures for infection prevention was taken. Procedure, possible complications, alternatives including, but not limited to possibility of bleeding, perforation, tear, infection, sepsis, need for surgery, need for blood transfusion, were explained to the patient. After the risks, benefits and alternatives of the procedure were thoroughly explained, Informed consent was verified, confirmed and timeout was successfully executed by the treatment team. The patient was placed in the left lateral position. A digital rectal exam was performed and revealed external hemorrhoids. After appropriate level of anesthesia, the scope was passed. The EC-[id number] ([id number]) endoscope was introduced through the anus and advanced to the cecum, which was identified by the ileocecal valve. The quality of the prep was fair. The instrument was then slowly withdrawn as the colon was fully examined. Scope withdrawal time was . COLON FINDINGS: Moderate sized internal and external hemorrhoids were found. Retroflexed views revealed no abnormalities. The scope was then completely withdrawn from the patient and the procedure terminated. ADVERSE EVENTS: There were no complications. IMPRESSIONS: Moderate sized internal and external hemorrhoids RECOMMENDATIONS: follow-up: office 1 week(s) RECALL: Return in 3-5 year(s) for Colonoscopy. Juan Acuña MD eSigned: Juan Acuña MD 02/12/2021 8:02 AM cc: Ventura Parham M.D. CPT CODES: ICD9 CODES: PATIENT NAME: Oli Eleuterio Emir MR#: [id number]
[2021-02-12 09:18] VITALS: BP 133/78; TEMP 97.7; O2SAT 93
== END 2021-02-12 09:09 | disposition home or self-care (01) ==
LOC: OR 06:21
PROVIDERS: ATTEND Surgery
PROC: 0DJD8ZZ Inspection of Lower Intestinal Tract, Via Natural or Artificial Opening Endoscopic (ICD-10-PCS; principal; 2021-02-12 07:30)
DX: Z86.010 Personal history of colon polyps (principal); Z20.822 Contact with and (suspected) exposure to COVID-19; K64.4 Residual hemorrhoidal skin tags; K64.8 Other hemorrhoids
CPT/HCPCS: U0003; J2704; J7120; G0105

== ENCOUNTER 2021-08-21 14:29 | Inpatient (IN) | payer OTHER, MEDICARE ==
--- OUTSIDE RECORDS SUMMARY | 2021-08-21 15:15 | XMS REPORT | Continuity of Care Document ---
:1950 Author Organization [facility] t Address [address] [place] [address] Dr. Garcia [address] [place] [address] Care Team Providers Name Role Phone Kirsten Attending Clinician Unavailable KEVON Attending Clinician Unavailable GINGER Attending Clinician Unavailable ARTURO KIRKPATRICK Attending Clinician Unavailable MARIAELENA Admitting Clinician Unavailable Problems This patient has no known problems. Allergies, Adverse Reactions, Alerts This patient has no known allergies or adverse reactions. Medications This patient has no known medications. Procedures This patient has no known procedures. Encounters Start End Encounter Admission Attending Care Care Encounter Source Date/Time Date/Time Type Type Clinicians Facility Department ID 2021-04-23 Outpatient ODILON Curtis [facility] [id number] Common 14:10:[address] [facility] 2021-03-27 2021-03-27 Emergency KEOVN, [facility] 064 [id number] [place] 00:00:00 00:00:00 CINDY [address] 2020-11-18 2020-11-18 Outpatient [facility] [id number] [place] 00:00:00 00:00:00 JOE [address] 2019-11-20 2019-11-20 [facility] [id number] [place] 00:00:00 00:00:00 JOE [address] Results Test Description Test Time Test Comments Results Result Comments Source MISCELLANEOUS LAB ORDER 2016-12-15 13:51:00 Test Item Value Reference Range Interpretation Comme nts SCAN RESULT (test code = 6413284) Result comments: STREPTOCOCCUS SPECIES DETECTED (Non-Strep Pneumo; Non-Group A or Group B) First line therapy: Vancomycin De-escalate based on susceptibilities Other organisms and resistance markers not contained in this PCR panel cannot be excluded and follow-up of traditional culture results is required. This sample was tested at the [facility] Clinical Microbiology Laboratory using the [employer] Blood Culture ID Panel. This test is FDA cleared for in vitro diagnostic use and has been verified and approved by the [facility] Clinical Microbiology laboratory for clinical use. Reference Range: Not DetectedBLOOD [id number] 13:19:00 Test Item Value Reference Range Interpretation Comments CULTURE (BEAKER) A From Aerobi c Bottle (test code = Only Alpha-hemo lytic 1095) streptococcus GRAM STAIN From aerobic RESULT (BEAKER) bottle only: gram (test code = positive cocci in 1123) chains STREPTOCOCCUS SPECIES DETECTED(Non-Strep Pneumo; Non-Group A or Group B)First line therapy: VancomycinDe-escalate based on susceptibilitiesOther organisms and resistance markers not contained in this PCR panel cannot be excluded and follow-up of traditional culture results is required. This sample was tested at the [facility] Clinical Microbiology Laboratory using the [employer] Film[employer] Blood Culture ID Panel. This test is FDA cleared for in vitro diagnostic use and has been verified and approved by the [facility] Clinical Microbiology laboratory for clinical use. Reference Range: Not DetectedBLOOD [id number] 19:00:00 Test Item Value Reference Range Interpretation Comments CULTURE (BEAKER) (test No growth in 5 days code = 1095) BLOOD [id number] 19:00:00 Test Item Value Reference Range Interpretation Comments CULTURE (BEAKER) (test No growth in 5 days code = 1095) CORTISOL,60 [id number] 15:41:00 Test Item Value Reference Range Interpretation Comments CORTISOL BASELINE NETWORKED 11.8 mcg/dL (BEAKER) (test code = 2307) CORTISOL 30 MINUTE NETWORKED 20.4 mcg/dL (BEAKER) (test code = 2308) CORTISOL, 60 MINUTE (BEAKER) 14.5 ug/dL (test code = 1805) ACTH STIMULATION TEST INTERPRETATION GUIDELINES(Synonyms: Cortrosyn Test, Cosyntropin or Corticotropin Stimulation Test)Adenocorticotropic hormone (ACTH)is a tropic hormone, made in the pituitary [...] study by Caroline et al (JUAN J 2000,283(8):1038-45), the ACTH Stimulation Test provides important prognostic information. This study defined 3 groups of patients with sepsis or septic shock: 1. Good Survival: Low basal cortisol (<or=34 mcg/dL) and high ACTH response (>9mcg/dL) 2. Intermediate Survival: Low basal cortisol (<34 mcg/dL) and low response to ACTH (&l t;or=9 mcg/dL) OR High basal cortisol (>34 mcg/dL) or high ACTH response (>9 mcg/dL) 3.Poor Survival: High basal cortisol (>34 mcg/dL) and low ACTH response (<or=9 mcg/dL).Treatment of patients with relative adrenal dysfunction may [...] serum cortisol level 30 minutes after cosyntropin ad ministration.Draw serum cortisol level 60 minutes after cosyntropin administration.CORTISOL,30 [id number] 15:40:00 Test Item Value Reference Range Interpretation Comments CORTISOL BASELINE NETWORKED 11.8 mcg/dL (BEAKER) (test code = 2307) CORTISOL, 30 MINUTE (BEAKER) 20.4 ug/dL (test code = 1804) ACTH STIMULATION TEST INTERPRETATION GUIDELINES(Synonyms: Cortrosyn Test, Cosyntropin or Corticotropin Stimulation Test)Adenocorticotropic hormone (ACTH)is a tropic hormone, made in the pituitary [...] study by Caroline et al (JUAN J 2000,283(8):3170-45), the ACTH Stimulation Test provides important prognostic information. This study defined 3 groups of patients with sepsis or septic shock: 1. Good Survival: Low basal cortisol (<or=34 mcg/dL) and high ACTH response (>9mcg/dL) 2. Intermediate Survival: Low basal cortisol (<34 mcg/dL) and low response to ACTH (&l t;or=9 mcg/dL) OR High basal cortisol (>34 mcg/dL) or high ACTH response (>9 mcg/dL) 3.Poor Survival: High basal cortisol (>34 mcg/dL) and low ACTH response (<or=9 mcg/dL).Treatment of patients with relative adrenal dysfunction may [...] serum cortisol level 30 minutes after cosyntropin ad ministration.Draw serum cortisol level 60 minutes after cosyntropin administration.CORTISOL,[id number] 11:51:00 Test Item Value Reference Range Interpretation Comments CORTISOL, BASELINE (MARIAAAKER) (test 11.8 ug/dL code = 1803) ACTH STIMULATION TEST INTERPRETATION GUIDELINES(Synonyms: Cortrosyn Test, Cosyntropin or Corticotropin Stimulation Test)Adenocorticotropic hormone (ACTH)is a tropic hormone, made in the pituitary [...] study by Caroline et al (JUAN J 2000,283(8):7504-45), the ACTH Stimulation Test provides important prognostic information. This study defined 3 groups of patients with sepsis or septic shock: 1. Good Survival: Low basal cortisol (<or=34 mcg/dL) and high ACTH response (>9mcg/dL) 2. Intermediate Survival: Low basal cortisol (<34 mcg/dL) and low response to ACTH (&l t;or=9 mcg/dL) OR High basal cortisol (>34 mcg/dL) or high ACTH response (>9 mcg/dL) 3.Poor Survival: High basal cortisol (>34 mcg/dL) and low ACTH response (<or=9 mcg/dL).Treatment of patients with relative adrenal dysfunction may [...] serum cortisol level 30 minutes after cosyntropin ad ministration.Draw serum cortisol level 60 minutes after cosyntropin administration.URINE [id number] 10:21:00 Test Item Value Reference Range Interpretation Comments CULTURE (BEAKER) (test code = 1095) No growth RAD, CHEST, 1 VIEW, NON [id number] 08:44:00Reason for exam:->pnaShould this be performed at the bedside?->YesFINAL REPORT INDICATION: pna COMPARISON: None. TECHNIQUE: Chest radiograph, single view, portable technique. FINDINGS / IMPRESSION: There is no evidence of pneumonia or pulmonaryedema. Cardiac and mediastinal contours are unremarkable. No pleural effusion or pneumothorax is demonstrated. Osseous structures are unremarkable. In summary, no evidence of acute pulmonary or cardiacabnormality. Signed: Bigg Ulrich MDReport Verified Date/Time: 12/09/2016 08:44:43 Reading Locat ion: [facility] Diagnostic Imaging Reading Room - [facility] F1 1120 [id number] 08:08:00 Test Item Value Reference Range Interpretation Comments MAGNESIUM (BEAKER) (test code = 1.9 mg/dL 1.6-2.6 627) BASIC METABOLIC [id number] 08:08:00 Test Item Value Reference Range Interpretation Comments SODIUM (BEAKER) 133 meq/L 136-145 L (test code = 381) POTASSIUM (BEAKER) 3.9 meq/L 3.5-5.1 (test code = 379) CHLORIDE (BEAKER) 100 meq/L 98-107 (test code = 382) CO2 (BEAKER) (test 27 meq/L 22-29 code = 355) BLOOD UREA NITROGEN 14 mg/dL 7-21 (BEAKER) (test code = 354) CREATININE (BEAKER) 0.60 mg/dL 0.57-1.25 (test code = 358) GLUCOSE RANDOM 90 mg/dL 70-105 (BEAKER) (test code = 652) CALCIUM (BEAKER) 8.8 mg/dL 8.4-10.2 (test code = 697) EGFR (BEAKER) (test 135 mL/min/1.73 ESTIM ATED GFR IS code = 1092) sq m NOT ACCURATE CREATININE CLEARANCE IN PREDICTING GLOMERULAR FILTRATION RATE . ESTIMATED GFR I S NOT APPLICABLE FOR DIALYSIS PATIEN TS. [id number] 06:44:00 Test Item Value Reference Range Interpretation Comments CORTISOL, TOTAL (BEAKER) (test code 6.2 ug/dL 3.7-19.4 = 2755) CALCIUM, [id number] 06:16:00 Test Item Value Reference Range Interpretation Comments CALCIUM IONIZED (BEAKER) (test 0.93 mmol/L 1.12-1.27 L code = 698) PH, BLOOD (BEAKER) (test code = 7.50 1810) EEG AWAKE AND [id number] 17:34:00Reason for exam:->SyncopeDATE OF EE12-08-2016 DATE OF REPORT: 12-08-2016 ACC: [id number] Start time: 12:49 Stoptime: 13:10 ICD-10: R55 CPT Code: 05684 HISTORY: recurrent syncopal episodes MEDICATIONS THAT COULDAFFECT EEG: TECHNICAL SUMMARY: This is a digital EEG recorded with 32 input channels on a [employer] system and then reviewed with bipolar and [...] DIFFERENTIAL)2016-12-08 10:20:00 Test Item Value Reference Range Interpretation Comments NEUTROPHILS - REL (DIFF) (BEAKER) 69 % (test code = 1359) LYMPHOCYTES - REL (DIFF) (BEAKER) 23 % (test code = 1360) MONOCYTES - REL (DIFF) (BEAKER) 7 % (test code = 1361) BANDS - REL (DIFF) (BEAKER) (test 1 % 0-10 code = 1348) NEUTROPHILS - ABS (DIFF) (BEAKER) 1.86 K/ L 1.80-8.00 (test code = 1365) LYMPHOCYTES - ABS (DIFF) (BEAKER) 0.62 K/ L 1.48-4.50 L (test code = 1366) MONOCYTES - ABS (DIFF) (BEAKER) 0.19 K/ L 0.00-1.30 (test code = 1367) BANDS-ABS (DIFF) (BEAKER) (test 0.0 K/ L 0.0-0.8 code = 1349) TOTAL COUNTED (BEAKER) (test code = 100 1351) BANDS + SEGMENTED NEUTROPHILS 1.89 (BEAKER) (test code = 1352) WBC MORPHOLOGY (BEAKER) (test code Normal = 487) RBC MORPHOLOGY (BEAKER) (test code Normal = 762) LARGE PLT(BEAKER) (test code = Present 2156) CALCIUM, [id number] 07:03:00 Test Item Value Reference Range Interpretation Comments CALCIUM IONIZED (BEAKER) (test 1.14 mmol/L 1.12-1.27 code = 698) PH, BLOOD (BEAKER) (test code = 7.37 1810) [id number] 07:01:00 Test Item Value Reference Range Interpretation Comments MAGNESIUM (BEAKER) (test code = 2.0 mg/dL 1.6-2.6 627) BASIC METABOLIC [id number] 07:01:00 Test Item Value Reference Range Interpretation Comments SODIUM (BEAKER) 137 meq/L 136-145 (test code = 381) POTASSIUM (BEAKER) 4.0 meq/L 3.5-5.1 (test code = 379) CHLORIDE (BEAKER) 102 meq/L 98-107 (test code = 382) CO2 (BEAKER) (test 28 meq/L 22-29 code = 355) BLOOD UREA NITROGEN 12 mg/dL 7-21 (BEAKER) (test code = 354) CREATININE (BEAKER) 0.61 mg/dL 0.57-1.25 (test code = 358) GLUCOSE RANDOM 85 mg/dL 70-105 (BEAKER) (test code = 652) CALCIUM (BEAKER) 9.0 mg/dL 8.4-10.2 (test code = 697) EGFR (BEAKER) (test 132 mL/min/1.73 ESTIM ATED GFR IS code = 1092) sq m NOT ACCURATE CREATININE CLEARANCE IN PREDICTING GLOMERULAR FILTRATION RATE . ESTIMATED GFR I S NOT APPLICABLE FOR DIALYSIS PATIEN TS. CBC W/PLT COUNT & AUTO [id number] 06:30:00 Test Item Value Reference Range Interpretation Comments WHITE BLOOD CELL COUNT (BEAKER) 2.7 K/ L 3.5-10.5 L (test code = 775) RED BLOOD CELL COUNT (BEAKER) 3.90 M/ L 4.63-6.08 L (test code = 761) HEMOGLOBIN (BEAKER) (test code = 12.6 GM/DL 13.7-17.5 L 410) HEMATOCRIT (BEAKER) (test code = 37.5 % 40.1-51.0 L 411) MEAN CORPUSCULAR VOLUME (BEAKER) 96.2 fL 79.0-92.2 H (test code = 753) MEAN CORPUSCULAR HEMOGLOBIN 32.3 pg 25.7-32.2 H (BEAKER) (test code = 751) MEAN CORPUSCULAR HEMOGLOBIN CONC 33.6 GM/DL 32.3-36.5 (BEAKER) (test code = 752) RED CELL DISTRIBUTION WIDTH 13.0 % 11.6-14.4 (BEAKER) (test code = 412) PLATELET COUNT (BEAKER) (test 126 K/CU MM 150-450 L code = 756) MEAN PLATELET VOLUME (BEAKER) 10.6 fL 9.4-12.4 (test code = 754) NUCLEATED RED BLOOD CELLS 0 /100 WBC 0-0 (BEAKER) (test code = 413) IMMATURE GRANULOCYTES-RELATIVE 0 % 0-1 PERCENT (BEAKER) (test code = 2801) URINALYSIS W/ [id number] 17:47:00 Test Item Value Reference Range Interpretation Comments COLOR (BEAKER) (test code = Light Yellow 470) CLARITY (BEAKER) (test code = Clear 469) SPECIFIC GRAVITY UA (BEAKER) 1.032 1.001-1.035 (test code = 468) PH UA (BEAKER) (test code = 7.0 5.0-8.0 467) PROTEIN UA (BEAKER) (test code Negative Negative = 464) GLUCOSE UA (BEAKER) (test code Negative Negative = 365) KETONES UA (BEAKER) (test code Negative Negative = 371) BILIRUBIN UA (BEAKER) (test Negative Negative code = 462) BLOOD UA (BEAKER) (test code = Negative Negative 461) NITRITE UA (BEAKER) (test code Negative Negative = 465) LEUKOCYTE ESTERASE UA (BEAKER) Negative Negative (test code = 466) UROBILINOGEN UA (BEAKER) (test 0.2 mg/dL 0.2-1.0 code = 463) RBC UA (BEAKER) (test code = 2 /HPF 519) WBC UA (BEAKER) (test code = 6 /HPF 520) BACTERIA (BEAKER) (test code = Rare 517) SOURCE(BEAKER) (test code = Urine, Voided 2466) CT, CAROTID, [id number] 16:48:00FINAL REPORT CTA head and neck with [...] to our departmental dose optimization program which i ncludes automated exposure control, adjustment of the mA [...] left and mild to moderate right mid [employer] SYSTEM[employer]INEER stenoses and mild left intradural vertebral artery stenosis. There is mild carotid siphon atherosclerosis. Otherwise no high grade proximal eagle of [employer] stenosis or major branch occlusion is seen. There is no evident saccular aneurysm. Other findings: The imaged lungs demonstrate bilateral ground glass opacities which could reflect edema or atypical pneumonitis. Multilevel cervical spine degenerative changes are present without high grade canal stenosis. IMPRESSION: 1. Mild right greater than left proximal cervical ICA stenosis, up to 20-30% on the right by NASCET criteria. 2. Mild to moderate right vertebral artery origin and left vertebral artery V1 segment stenoses. 3. Suspected moderate left and mild to moderate right mid APPLICATION SYSTEMS ENGINEER stenoses, and other lesser intracranial atherosclerotic changes as discussed. 4. Nonspecific bilateral ground glass lung opacities, which could reflect edema or atypical pneumonitis. Advise correlation with chest imaging. Signed: Aaron Moulton Verified Date/Time: 12/07/2016 16:48:08 Reading Location: [address] Neuro Reading Room CTKEI [id number] 16:48:00FINAL REPORT CTA head and neck with [...] left and mild to moderate right mid APPLICATION SYSTEMS ENGINEER stenoses and mild left intradural vertebral artery stenosis. There is mild carotid siphon atherosclerosis. Otherwise no high grade proximal eagle [employer] stenosis or major branch occlusion is seen. There is no evident saccular aneurysm. Other findings: The imaged lungs demonstrate bilateral ground glass opacities which could reflect edema or atypical pneumonitis. Multilevel cervical spine degenerative changes are present without high grade canal stenosis. IMPRESSION: 1. Mild right greater than left proximal cervical ICA stenosis, up to 20-30% on the right by NASCET criteria. 2. Mild to moderate right vertebral artery origin and left vertebral artery V1 segment stenoses. 3. Suspected moderate left and mild to moderate right mid APPLICATION SYSTEMS ENGINEER stenoses, and other lesser intracranial atherosclerotic changes as discussed. 4. Nonspecific bilateral ground glass lung opacities, which could reflect edema or atypical pneumonitis. Advise correlation with chest imaging. Signed: Aaron Moulton MDReport Verified Date/Time: 12/07/2016 16:48:08 Reading Location: [address] Neuro Reading Room TINE KINASE (CK), TOTAL AND [id number] 14:16:00 Test Item Value Reference Range Interpretation Comments CREATINE KINASE TOTAL (BEAKER) 85 U/L 29-200 (test code = 380) CREATINE KINASE-MB (BEAKER) (test 3.5 ng/mL 0.0-6.6 code = 750) CREATINE KINASE-MB INDEX (BEAKER) 4.1 % (test code = 395) CK-MB Reference Range:<6.7 Normal6.7-10.0 Borderline>10.0 AbnormalTROPONIN [id number] 14:16:00 Test Item Value Reference Range Interpretation Comments TROPONIN I (BEAKER) (test code = 397) < ng/mL 0.00-0.03 Troponin I (TnI) levels [...] failure, acidosis, acute neurological disease, and persistent tachyarrhythmia.[id number] 14:09:00 Test Item Value Reference Range Interpretation Comments MAGNESIUM (BEAKER) (test code = 2.1 mg/dL 1.6-2.6 627) BASIC METABOLIC [id number] 14:09:00 Test Item Value Reference Range Interpretation Comments SODIUM (BEAKER) 133 meq/L 136-145 L (test code = 381) POTASSIUM (BEAKER) 4.2 meq/L 3.5-5.1 (test code = 379) CHLORIDE (BEAKER) 98 meq/L 98-107 (test code = 382) CO2 (BEAKER) (test 28 meq/L 22-29 code = 355) BLOOD UREA NITROGEN 14 mg/dL 7-21 (BEAKER) (test code = 354) CREATININE (BEAKER) 0.75 mg/dL 0.57-1.25 (test code = 358) GLUCOSE RANDOM 125 mg/dL 70-105 H (BEAKER) (test code = 652) CALCIUM (BEAKER) 9.1 mg/dL 8.4-10.2 (test code = 697) EGFR (BEAKER) (test 104 mL/min/1.73 ESTIM ATED GFR IS code = 1092) sq m NOT ACCURATE CREATININE CLEARANCE IN PREDICTING GLOMERULAR FILTRATION RATE . ESTIMATED GFR I S NOT APPLICABLE FOR DIALYSIS PATIEN TS. [id number] 13:58:00 Test Item Value Reference Range Interpretation Comments PROTIME (BEAKER) (test code = 14.7 seconds 11.7-14.7 759) INR (BEAKER) (test code = 370) 1.2 <=5.9 PARTIAL THROMBOPLASTIN TIME 23.4 seconds 22.5-36.0 (BEAKER) (test code = 760) RECOMMENDED COUMADIN/WARFARIN INR THERAPY RANGESSTANDARD DOSE: 2.0 - 3.0 Includes: PROPHYLAXIS forvenous thrombosis, systemic embolization; TREATMENT for venous thrombosis and/or pulmonary embolus.HIGH RISK: Target INR is 2.5-3.5 for patients with mechanical heart valves.CBC W/PLT COUNT & AUTO DIFFERENTIAL 2016-12-07 13:52:00 Test Item Value Reference Range Interpretation Comments WHITE BLOOD CELL COUNT (BEAKER) 3.0 K/ L 3.5-10.5 L (test code = 775) RED BLOOD CELL COUNT (BEAKER) 3.71 M/ L 4.63-6.08 L (test code = 761) HEMOGLOBIN (BEAKER) (test code = 12.0 GM/DL 13.7-17.5 L 410) HEMATOCRIT (BEAKER) (test code = 35.7 % 40.1-51.0 L 411) MEAN CORPUSCULAR VOLUME (BEAKER) 96.2 fL 79.0-92.2 H (test code = 753) MEAN CORPUSCULAR HEMOGLOBIN 32.3 pg 25.7-32.2 H (BEAKER) (test code = 751) MEAN CORPUSCULAR HEMOGLOBIN CONC 33.6 GM/DL 32.3-36.5 (BEAKER) (test code = 752) RED CELL DISTRIBUTION WIDTH 13.1 % 11.6-14.4 (BEAKER) (test code = 412) PLATELET COUNT (BEAKER) (test 136 K/CU MM 150-450 L code = 756) MEAN PLATELET VOLUME (BEAKER) 11.0 fL 9.4-12.4 (test code = 754) NUCLEATED RED BLOOD CELLS 0 /100 WBC 0-0 (BEAKER) (test code = 413) NEUTROPHILS RELATIVE PERCENT 75 % (BEAKER) (test code = 429) LYMPHOCYTES RELATIVE PERCENT 13 % (BEAKER) (test code = 430) MONOCYTES RELATIVE PERCENT 10 % (BEAKER) (test code = 431) EOSINOPHILS RELATIVE PERCENT 1 % (BEAKER) (test code = 432) BASOPHILS RELATIVE PERCENT 0 % (BEAKER) (test code = 437) NEUTROPHILS ABSOLUTE COUNT 2.22 K/ L 1.78-5.38 (BEAKER) (test code = 670) LYMPHOCYTES ABSOLUTE COUNT 0.39 K/ L 1.32-3.57 L (BEAKER) (test code = 414) MONOCYTES ABSOLUTE COUNT (BEAKER) 0.30 K/ L 0.30-0.82 (test code = 415) EOSINOPHILS ABSOLUTE COUNT 0.02 K/ L 0.04-0.54 L (BEAKER) (test code = 416) BASOPHILS ABSOLUTE COUNT (BEAKER) 0.01 K/ L 0.01-0.08 (test code = 417) IMMATURE GRANULOCYTES-RELATIVE 0 % 0-1 PERCENT (BEAKER) (test code = 2801) POCT-GLUCOSE [id number] 13:46:00 Test Item Value Reference Range Interpretation Comments POC-GLUCOSE METER 136 mg/dL 70-[address] [facility] 6720 ([facility]) (test code = JAMES Godwin [facility] 1538) [address] CT, BRAIN/STROKE [id number] 13:28:00Reason for exam:->loss of consciousnessFINAL REPORT CT [...] Moulton Verified Date/Time: 12/07/2016 13:28:57 Reading Location: [facility] B1 C013V Neuro Reading Room
[2021-08-21 16:36] LABS: Urine Blood Negative (Negative); Urine Glucose Negative (Negative); Urine Protein 1+ (Negative); Urine Specific Gravity 1.025 (1.005-1.030)
[2021-08-21 17:05] LABS: Absolute Lymphocytes (CBC) 0.5 K/uL (0.7-4.9); Hematocrit 31.4 % (39.6-49.0); Lymphocytes % 4.9 % (15.3-44.8); MPV 8.9 fL (7.6-11.3); Potassium 3.6 mmol/L (3.5-5.1)
[2021-08-21 17:19] LABS: Urine Amorphous Sediment 1+ /HPF (NONE SEEN); Urine Bacteria 20-50 /HPF (NONE SEEN); Urine Mucus 2+ /HPF (NONE SEEN); Urine RBC <5 /HPF (NONE SEEN)
[2021-08-21] MEDS ORDERED: NA CHLORIDE 0.9% 1,000 ML ONE (18:50)
[2021-08-21] MEDS ORDERED: CEFTRIAXONE 1000 MG/VIAL ONE (18:50)
--- NOTE | 2021-08-21 18:52 | ER ---
Nurse's Notes [facility] Name: Eleuterio Baird Age: 70 yrs Sex: Male : 1950 Arrival Date: 08/21/2021 Time: 14:35 Bed 7 Private MD: Diagnosis: Acute cystitis;Muscle weakness (generalized);Hyponatremia Presentation: 08/21 15:16 Chief complaint: Spouse and/or significant other states: pt straight caths at home; vg1 spouse stated 'brown urine' and noticed 'pus' in urine. Pt denies ABD pain and NVD. Coronavirus screen: Vaccine status: Patient reports receiving the 2nd dose of the covid vaccine. Client denies travel out of the [place] in the last 14 days. Ebola Screen: Patient denies exposure to infectious person. Patient denies travel to an Ebola-affected area in the 21 days before illness onset. Initial Sepsis Screen: Does the patient meet any 2 criteria? Yes Does the patient have a suspected source of infection? No. Patient's initial sepsis screen is negative. Risk Assessment: Do you want to hurt yourself or someone else? Patient reports no desire to harm self or others. Onset of symptoms was August 18, 2021. 15:16 Method Of Arrival: Wheelchair vg1 15:16 Acuity: SALOME 3 vg1 Triage Assessment: 15:20 General: Appears comfortable, Behavior is calm, cooperative. Pain: Denies pain. : vg1 Reports "brown urine with pus". Historical: - Allergies: 15:20 amantadine HCl; vg1 15:20 Flagyl; vg1 - PMHx: 15:20 heart stents x5; MS; Myocardial infarction; Pneumonia; R sided weakness; syncope; vg1 - Immunization history:: Client reports receiving the 2nd dose of the Covid vaccine. - Social history:: Smoking status: Patient/guardian denies using tobacco, the patient reports quitting approximately 30 years ago. Assessment: 20:21 Reassessment: Blood culture collected but rocephin already given before. ke1 Vital Signs: 15:16 BP 113 / 45; Pulse 60; Resp 16; Temp 99.1(TE); Pulse Ox 97% on R/A; Weight 79.38 kg; vg1 Height 5 ft. 7 in. (170.18 cm); Pain 0/10; 16:23 BP 126 / 69; Pulse 55; Resp 16; Pulse Ox 97% ; Weight 79.38 kg; Height 5 ft. 7 in. zm (170.18 cm); 17:59 BP 134 / 53; Pulse 55; Resp 17; Pulse Ox 98% on R/A; maldonado 16:23 Body Mass Index 27.41 (79.38 kg, 170.18 cm) ED Course: 14:35 Patient arrived in ED. rg4 15:19 Triage completed. vg1 15:20 Arm band placed on. vg1 16:13 Tyree Wilson PA is PHCP. jr8 16:13 Timothy Wong MD is Attending Physician. jr8 16:25 Citlalli Nolan, RN is Primary Nurse. jh6 18:44 COVID-19 SARS RT PCR (Document "Date of Onset" if Symptomatic) Sent. maldonado 18:52 Maddie Parham MD is Hospitalizing Provider. jr8 20:21 Blood Culture Adult (2) Sent. ke1 Administered Medications: 18:48 Drug: NS 0.9% 1000 ml Route: IV; Rate: 1000 ml; Site: left hand; maldonado 18:48 Drug: Rocephin (cefTRIAXone) 1 grams Route: IV; Rate: calculated rate; Site: left hand; maldonado Outcome: 18:52 Decision to Hospitalize by Provider. jr8 23:11 Patient left the ED. vc1 Signatures: Tyree Wilson PA PA jr8 Jade Jara Sabiha Melo RN RN Citlalli Brambila, RN RN jh Kia Jiménez RN HARPER Meseret Milton RN RN vc1 Magnolia Walker, RN RN [facility] Danya Acuña
--- NOTE | 2021-08-21 18:53 | EDPHYS ---
Physician Documentation [facility] Name: Eleuterio Baird Age: 70 yrs Sex: Male : 1950 Arrival Date: 08/21/2021 Time: 14:35 Bed 7 Private MD: ED Physician Timothy Wong HPI: 08/21 16:48 This 70 yrs old Male presents to ER via Wheelchair with complaints of Urinary Problem, jr8 Abnormal Lab Results. 16:48 The patient presents with urinary symptoms. Onset: The symptoms/episode began/occurred jr8 suddenly. Associated signs and symptoms: The patient has no apparent associated signs or symptoms. Severity of symptoms: At their worst the symptoms were mild, in the emergency department the symptoms are unchanged. The patient has experienced similar episodes in the past, several times. The patient has not recently seen a physician. This is a 70-year-old male patient with a history of multiple sclerosis that presented to the emergency room with complaints of pyuria. of patient stated that they straight cath intermittently and with the last few straight caths has had exudative material in his catheter. Denies abdominal pain, nausea, vomiting, diarrhea, fever at this time. Has had frequent urinary tract infections in the past.. Historical: - Allergies: 15:20 amantadine HCl; vg1 15:20 Flagyl; vg1 - PMHx: 15:20 heart stents x5; MS; Myocardial infarction; Pneumonia; R sided weakness; syncope; vg1 - Immunization history:: Client reports receiving the 2nd dose of the Covid vaccine. - Social history:: Smoking status: Patient/guardian denies using tobacco, the patient reports quitting approximately 30 years ago. ROS: 16:48 Eyes: Negative for injury, pain, redness, and discharge, ENT: Negative for injury, jr8 pain, and discharge, Neck: Negative for injury, pain, and swelling, Cardiovascular: Negative for chest pain, palpitations, and edema, Respiratory: Negative for shortness of breath, cough, wheezing, and pleuritic chest pain, Abdomen/GI: Negative for abdominal pain, nausea, vomiting, diarrhea, and constipation, Back: Negative for injury and pain, MS/Extremity: Negative for injury and deformity, Skin: Negative for injury, rash, and discoloration, Neuro: Negative for headache, weakness, numbness, tingling, and seizure. 16:48 : Positive for urinary symptoms. Exam: 16:48 Constitutional: This is a well developed, well nourished patient who is awake, alert, jr8 and in no acute distress. Eyes: Pupils equal round and reactive to light. Lids and lashes normal. Conjunctiva and sclera are non-icteric and not injected. Cornea within normal limits. Periorbital areas with no swelling, redness, or edema. ENT: Nares patent. No nasal discharge, no septal abnormalities noted. Tympanic membranes are normal and external auditory canals are clear. Oropharynx with no redness, swelling, or masses, exudates, or evidence of obstruction, uvula midline. Mucous membranes moist. Cardiovascular: Regular rate and rhythm with a normal S1 and S2. No gallops, murmurs, or rubs. Normal PMI, no JVD. No pulse deficits. Respiratory: Lungs have equal breath sounds bilaterally, clear to auscultation and percussion. No rales, rhonchi or wheezes noted. No increased work of breathing, no retractions or nasal flaring. Abdomen/GI: Soft, non-tender, with normal bowel sounds. No distension or tympany. No guarding or rebound. No evidence of tenderness throughout. Back: No spinal tenderness. No costovertebral tenderness. Full range of motion. Skin: Warm, dry with normal turgor. Normal color with no rashes, no lesions, and no evidence of cellulitis. MS/ Extremity: Pulses equal, no cyanosis. Neurovascular intact. Full, normal range of motion. Neuro: Awake and alert, GCS 15, oriented to person, place, time, and situation. Cranial nerves II-XII grossly intact. Slight weakness to right arm and right leg which is baseline per patient. Sensory grossly intact. Vital Signs: 15:16 BP 113 / 45; Pulse 60; Resp 16; Temp 99.1(TE); Pulse Ox 97% on R/A; Weight 79.38 kg; vg1 Height 5 ft. 7 in. (170.18 cm); Pain 0/10; 16:23 BP 126 / 69; Pulse 55; Resp 16; Pulse Ox 97% ; Weight 79.38 kg; Height 5 ft. 7 in. zm (170.18 cm); 17:59 BP 134 / 53; Pulse 55; Resp 17; Pulse Ox 98% on R/A; maldonado 16:23 Body Mass Index 27.41 (79.38 kg, 170.18 cm) zm MDM: 16:14 Patient medically screened. [facility] 18:45 Data reviewed: vital signs, nurses notes, lab test result(s), and as a result, I will [facility] admit patient. Data interpreted: Pulse oximetry: on room air is 98 %. Interpretation: normal. Counseling: I had a detailed discussion with the patient and/or guardian regarding: the historical points, exam findings, and any diagnostic results supporting the discharge/admit diagnosis, lab results, the need for further work-up and treatment in the hospital. ED course: Spoke with Dr. Parham. Wants to observe patient overnight. Family good with this. 08/21 15:45 Order name: Urine Microscopic Only; Complete Time: 17:47 [facility] 08/21 16:36 Order name: Urine Dipstick-Ancillary; Complete Time: 16:38 [facility] 08/21 16:38 Order name: CBC with Diff; Complete Time: 18:10 [facility] 08/21 16:38 Order name: BMP; Complete Time: 18:10 [facility] 08/21 17:22 Order name: Urine Culture [facility] 08/21 18:43 Order name: COVID-19 SARS RT PCR (Document "Date of Onset" if Symptomatic); Complete maldonado Time: 20:31 08/21 15:22 Order name: Urine Dipstick-Ancillary (obtain specimen); Complete Time: 16:42 [facility] 08/21 16:38 Order name: IV; Complete Time: 18:42 [facility] 08/21 18:47 Order name: Blood Culture Adult (2) [facility] Administered Medications: 18:48 Drug: NS 0.9% 1000 ml Route: IV; Rate: 1000 ml; Site: left hand; 18:48 Drug: Rocephin (cefTRIAXone) 1 grams Route: IV; Rate: calculated rate; Site: left hand; Disposition Summary: 08/21/21 18:52 Hospitalization Ordered Hospitalization Status: Observation [facility] Provider: Maddie Parham Location: Telemetry/MedSurg (observation) [facility] Condition: Stable jr8 Problem: new jr8 Symptoms: have improved jr Bed/Room Type: Standard [facility] Room Assignment: [facility](08/21/21 21:12) cg Diagnosis - Acute cystitis jr8 - Muscle weakness (generalized) jr8 - Hyponatremia jr8 Forms: - Medication Reconciliation Form jr8 - SBAR form jr8 Signatures: Dispatcher [employer] Tyree Khan PA PA jr8 Luis Enrique Phillips, MEDICAL EQUIPMENT SALES-C [employer] SALES-Gabi1 Ashley Jara RN RN cg Sabiha Jara RN RN vg1 Kia Jiménez RN RN maldonado Corrections: (The following items were deleted from the chart) 21:12 18:52 [facility]
[2021-08-21] MEDS: NA CHLORIDE 0.9% 1,000 ML IV SCH (22:18)
[2021-08-21] MEDS ORDERED: ONDANSETRON 4 MG/2 ML VIAL IV PRN (22:18)
[2021-08-21 23:54] VITALS: BMI 27.3
[2021-08-22] MEDS: NA CHLORIDE 0.9% 1,000 ML IV SCH ×2 (03:36→15:24)
--- NOTE | 2021-08-22 03:46 | HP ---
Date of Admission: 08/21/2021 Chief Complaint: Weakness and pus in urine. History Of Present Illness: This is a 70-year-old pleasant male patient who came into the emergency room with about 2-3 days history of purulent discharge per urethra mixed with urine and very strong and foul order of urine for last 2- 3 days. No fever, no chills, but has been feeling very weak with poor appetite. also reported he has some confusion in last 2-3 days. called office with all these complaints and she was advised to bring the patient to the emergency room. After he was evaluated, he was admitted to the hospital. I saw him in the emergency room. Medications: List reviewed. Allergies: TO AMANTADINE AND METRONIDAZOLE. 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 Constitutional: Generalized weakness. Genitourinary: As mentioned above. All other systems reviewed and negative. Family History: Not pertinent. Social History: Negative for smoking, alcohol use. Past Surgical History: Cholecystectomy, appendectomy, coronary artery angioplasty with stent placement and this was done in 2014 at [facility]. Past Medical History: Significant for coronary artery disease, hypothyroidism, hyperlipidemia, myocardial infarction, hypertension, pneumonia, multiple sclerosis, prior history of seizure disorder and trigeminal neuralgia. The patient is legally blind. He has neurogenic bladder (requiring straight cath multiple times a day) and neurogenic bowel. Physical Examination: Vital Signs: Temperature 99.1, pulse 60, respiratory rate 16, blood pressure 113/45, height 5 feet 7 inches, weight 175 pounds. General: Awake, alert, oriented, not in distress. HEENT: Head atraumatic, normocephalic. Conjunctivae nonerythematous. Sclerae white. Mouth, no thrush or edema noted. Ears/Nose, no mass, lesion, discharge noted. Neck: Supple. No JVD, lymph nodes, bruit, thyromegaly noted. Lungs: Bilateral good equal air entry. Clear to auscultation. No rhonchi. No rales. Heart: Normal heart sounds, no murmur or gallop. Abdomen: Soft, bowel sounds normal. No guarding, rigidity, tenderness, mass, hepatosplenomegaly, distention, or bruit noted. Extremities: No leg edema. No calf tenderness. Skin: No rash, ulcer, cellulitis. Lymphatics: No lymph node enlargement in neck, supraclavicular, infraclavicular region. Neuro: No focal neurological deficit. Chest: Unremarkable. External Genitalia: Shows evidence of a pink macular rash in the posterior scrotal and upper inner thigh region consistent with dermatophytosis. Rectal: Deferred. Laboratory Data: White count 10, hemoglobin 10.8, platelets 159. Sodium 130, potassium 3.6, chloride 96, bicarb 27, BUN 16, creatinine 0.52, glucose 101. Urinalysis; 1+ leukocyte esterase, 20-50 wbc's, bacteria 20-50, 1+ protein. COVID-19 test negative. Impression: 1. Urinary tract infection. 2. Toxic encephalopathy. 3. Generalized weakness. 4. Debility. 5. Hyponatremia. 6. Anemia, unspecified. 7. Coronary artery disease. 8. Hypothyroidism. 9. Hyperlipidemia. 10. Hypertension. 11. Multiple sclerosis. Plan: We will go ahead and admit the patient to hospital for further evaluation and management of this problem. The patient is appropriate for inpatient and is expected to spend 2 midnights in the hospital. We will continue home medications per order. The patient's has his home medications with her and she was instructed to continue his home medications using his home supply. He also uses oxygen at 2 L/minute nasal cannula at night time, which nurse was advised to continue that. We will go ahead and give regular diet. DVT prophylaxis will be given per order. Follow up on urine culture, blood culture, empiric antibiotic, ceftriaxone will be started and details and plan of treatment discussed with the patient and patient's . I will see him tomorrow morning for followup. JESS/CHIRAG Voice ID: [id number] MURALI
[2021-08-22 05:22] LABS: Absolute Lymphocytes (CBC) 0.6 K/uL (0.7-4.9); Hematocrit 31.5 % (39.6-49.0); Lymphocytes % 6.5 % (15.3-44.8); MPV 8.8 fL (7.6-11.3); RBC Red Blood Cell Count 3.24 M/uL (4.33-5.43)
[2021-08-22] MEDS ORDERED: [UNRECOGNIZED DRUG - OTHER] TOP PRN (08:28)
[2021-08-22] MEDS ORDERED: [UNRECOGNIZED DRUG - OTHER] IM SCH (08:30)
[2021-08-22] MEDS ORDERED: CYANOCOBALAMIN 1000 MCG/ML IM SCH (08:30)
[2021-08-22] MEDS: TIMOLOL OPTH SCH ×4 (09:00→20:21)
[2021-08-22] MEDS: OXYBUTYNIN CHLORIDE 5 MG PO SCH ×4 (09:00→20:21)
[2021-08-22] MEDS: BRIMONIDINE TARTRATE OPTH SCH ×4 (09:00→20:21)
[2021-08-22] MEDS ORDERED: ENOXAPARIN 40 MG/0.4 ML SQ SCH (09:00)
[2021-08-22] MEDS: METOPROLOL TARTRATE 25 MG PO SCH ×3 (09:00→20:21)
[2021-08-22] MEDS: CARBAMAZEPINE 200 MG PO SCH ×4 (09:00→20:21)
[2021-08-22] MEDS: FINASTERIDE 5 MG PO SCH (09:00)
[2021-08-22] MEDS ORDERED: LISINOPRIL PO SCH (09:00)
[2021-08-22] MEDS: [UNRECOGNIZED DRUG - OTHER] OPTH SCH ×4 (09:00→20:21)
[2021-08-22] MEDS: TIMOLOL 0.25% OPTH SCH ×2 (09:00→15:52)
[2021-08-22] MEDS: DIMETHYL FUMARATE 240 MG PO SCH ×3 (09:00→20:21)
[2021-08-22] MEDS ORDERED: [UNRECOGNIZED DRUG - OTHER] PO SCH (09:00)
[2021-08-22 09:17] LABS: Albumin 3.5 g/dL (3.4-5.0); Bilirubin Direct 0.1 mg/dL (0-0.2); Bilirubin Total 0.4 mg/dL (0.2-1.0); Protein, Total 6.5 g/dL (6.4-8.2)
[2021-08-22] MEDS: CEFTRIAXONE 1,000 MG in NA CHLORIDE 0.9% 50 ML IVPB SCH ×2 (10:55→20:16)
--- NOTE | 2021-08-22 11:55 | RAD REPORT ---
EXAM DESCRIPTION: US - Renal Ultrasound-Complete - 08/22/2021 11:34 am CLINICAL HISTORY: Abdominal pain/urinary tract infection COMPARISON: 2009 FINDINGS: The right kidney measures 12 cm with a normal echotexture. The left kidney measures 12 cm with a normal echotexture. Hydronephrosis is not seen. IMPRESSION: Unremarkable renal ultrasound.
--- NOTE | 2021-08-22 11:56 | RAD REPORT ---
EXAM DESCRIPTION: US - Urinary Bladder - 08/22/2021 11:34 am CLINICAL HISTORY: Abdominal pain/urinary tract infection FINDINGS: Bladder volume 282 cc. A mass within the bladder is not visualized. The bladder wall thickness appears normal. IMPRESSION: No significant abnormality is displayed
[2021-08-22] MEDS: GABAPENTIN 300 MG PO SCH ×2 (15:52→20:16)
[2021-08-22] MEDS: ATORVASTATIN CALCIUM 40 MG PO SCH (20:16)
[2021-08-22] MEDS ORDERED: ATORVASTATIN CALCIUM 40 MG PO SCH (21:00)
[2021-08-23] MEDS: NA CHLORIDE 0.9% 1,000 ML IV SCH (00:28)
[2021-08-23] MEDS: ACETAMINOPHEN 500 MG TAB PO PRN ×2 (00:28→06:14)
[2021-08-23] MEDS: LEVOTHYROXINE SODIUM 25 MCG PO SCH (05:03)
[2021-08-23] MEDS ORDERED: FAMOTIDINE 20 MG/2 ML VIAL IV ONE (06:01)
[2021-08-23] MEDS ORDERED: MAGNES/ALUMIN/SIMET 30ML UCUP PO ONE (06:05)
[2021-08-23] MEDS: Levofloxacin500mg IV 500 MG/100 ML BAG IV SCH (06:14)
[2021-08-23 06:50] LABS: CKMB Creatine Kinase MB 3.9 ng/mL (1.0-3.6)
[2021-08-23] MEDS ORDERED: ENOXAPARIN 80 MG/0.8 ML SQ ONE (07:31)
[2021-08-23] MEDS: ENOXAPARIN 80 MG/0.8 ML SQ SCH ×2 (07:33→17:38)
[2021-08-23] MEDS: NITROGLYCERIN 1 GM PKT TD SCH ×2 (07:34→12:00)
[2021-08-23] MEDS ORDERED: [UNRECOGNIZED DRUG - OTHER] TOP PRN (08:15)
--- NOTE | 2021-08-23 08:25 | PN ---
Date of Progress Note: 08/22/2021 Subjective: The patient was seen this morning for followup. No new complaints or problems reported by patient. Lying in bed, not in distress. was present with him at bedside. Objective: Vital Signs: Reviewed. HEENT: Unremarkable. Lungs: Clear to auscultation. Cardiac: Heart sounds normal. Abdomen: Soft. Bowel sounds normal. No guarding, rigidity, tenderness, or distention. Extremities: No leg edema. Laboratory Data: Reviewed. Blood culture and urine culture pending. Impression: 1.Urinary tract infection. 2.Rule out sepsis. 3.Hypertension. Plan: We will go ahead and continue current medications. Continue current antibiotics. Follow up o n culture results. Ultrasound of kidney and bladder will be done today. We will follow up on diet a nd I will see him tomorrow for followup. Details of plan of treatment discussed with the patient and his , who was at bedside. We will consult Physical therapy to help ambulate the patient as he i s having some generalized weakness. JESS/MODL Voice ID: [id number] Report ID: [id number]
[2021-08-23] MEDS ORDERED: ENOXAPARIN 80 MG/0.8 ML SQ SCH (09:00)
[2021-08-23] MEDS: DIMETHYL FUMARATE 240 MG PO SCH ×2 (09:02→21:22)
[2021-08-23] MEDS: GABAPENTIN 300 MG PO SCH ×3 (09:03→21:22)
[2021-08-23] MEDS: OXYBUTYNIN CHLORIDE 5 MG PO SCH ×3 (09:03→21:21)
[2021-08-23] MEDS: METOPROLOL TARTRATE 25 MG PO SCH ×2 (09:04→21:21)
[2021-08-23] MEDS: FINASTERIDE 5 MG PO SCH (09:04)
[2021-08-23] MEDS: [UNRECOGNIZED DRUG - OTHER] OPTH SCH ×3 (09:06→21:22)
[2021-08-23] MEDS: TIMOLOL 0.25% OPTH SCH (09:06)
[2021-08-23] MEDS: TIMOLOL OPTH SCH ×3 (09:06→21:22)
[2021-08-23] MEDS: BRIMONIDINE TARTRATE OPTH SCH ×3 (09:06→21:22)
[2021-08-23] MEDS: CARBAMAZEPINE 200 MG PO SCH ×3 (09:07→21:21)
[2021-08-23] MEDS: lisinopriL 5 MG TAB PO SCH (09:08)
--- NOTE | 2021-08-23 11:01 | PN ---
Date of Progress Note: 08/23/2021 Subjective: The patient was seen this morning for followup. Early this morning, he had a burning ty pe of pain in the lower center of his chest. A stat EKG was done, which came back unremarkable and w tamika nurse contacted me with this information, we did order cardiac enzymes, IV Pepcid and 1 dose of M aalox. Cardiac enzymes came back with elevated troponin and after that we ordered nitroglycerin oint ment and Cardiology consultation and we also changed his Lovenox to therapeutic dose which is 1 mg/kg subcutaneous injection every 12 hours. When I saw him this morning, his pain was significantly bett er as he reports not completely gone. Objective: Vital Signs: Reviewed. HEENT: Unremarkable. Lungs: Clear to auscultation. Heart: Sounds normal. Abdomen: Soft. Bowel sounds normal. No guarding, rigidity, tenderness, or distention. Extremity: No leg edema. Laboratory Data: Blood culture and urine culture remains negative. Troponin is 512.6. Ultrasound o f bladder and kidney was unremarkable. Impression: 1.Urinary tract infection. 2.Non-ST segment elevation myocardial infarction. 3.Hypertension. 4.Hyperlipidemia. 5.Coronary artery disease. Plan: We will go ahead and discontinue ceftriaxone, start the patient on Levaquin considering he is running fever. His temperature this morning was 101. Cultures have not grown anything, so we will h ave to give empiric antibiotics. If he still does not respond to Levaquin, then we will have to add vancomycin. Consult Cardiology. Continue nitroglycerin ointment. Continue metoprolol, atorvastatin , Lovenox per order and details of plan and treatment discussed with the patient and the patient's . I jose roberto l see him tomorrow for followup. JESS/MODL Voice ID: [id number] Report ID: [id number]
--- NOTE | 2021-08-23 12:32 | CON ---
Date of Consultation: 08/23/2021 Reason For Consultation: Elevated troponin. History Of Present Illness: 70-year-old male with known history of coronary artery disease, dyslipid emia, hypertension, pneumonia, multiple sclerosis, seizure disorder, trigeminal neuralgia presented w ith generalized weakness and found to have urinary tract infection, however, also has been having [address] st pains on and off at rest, pressure-like, radiates to the left arm and lasts for few minutes and go es away on its own. He is totally chest pain free at the present time. Troponin was checked and was elevated. Past Medical History: As outlined above in the HPI. Medications: Refer reconciliation sheet for detailed list. Allergies: AMANTADINE AND METRONIDAZOLE. Family History: No premature coronary artery disease or cancer. Social History: Does not smoke or drink. Does not use any drugs. Past Surgical History: Cholecystectomy, appendectomy, and cardiac stent placement. Review of Systems: No chest pain, shortness of breath, orthopnea, or cough. No nausea, vomiting, or diarrhea. No abdom inal pain. No dysuria, polyuria, or urinary urgency. All other systems reviewed and are negative. Physical Examination: Vital Signs: Reviewed. Head and Neck: Pupils are equal, reactive to light. Intact eye movements. No JVD. No cervical lym phadenopathy. Neck is supple. Thyroid is not enlarged. Lungs: Clear to auscultation bilaterally. No rhonchi, rales, or crackles. No accessory muscle use. HEART: Irregular. No extra sounds. Abdomen: Soft, nontender. Bowel sounds positive. No organomegaly. No masses or hernia. No rigidi ty or rebound. Extremities: No clubbing or cyanosis. Intact pulses. Skin: No rashes. Neurologic: Alert, awake, oriented x3. No acute focal deficits appreciated. Investigations: Hemoglobin 10.7, white blood cell count is 8.7, and troponin is 512. Creatinine 0.5 5. Assessment And Recommendation: 1.Chest pain with elevated troponin suggestive of non-ST elevation myocardial infarction. Start him on aspirin. I recommend therapeutic anticoagulation with Lovenox to keep through the weekend and pl an for coronary angiogram early next week. 2.Urinary tract infection, on antibiotics. SR/MODL Voice ID: [id number] Report ID: [id number]
[2021-08-23] MEDS ORDERED: ASPIRIN EC 81 MG TAB PO ONE (14:37)
[2021-08-23] MEDS: [UNRECOGNIZED DRUG - OTHER] OPTH SCH (21:00)
[2021-08-23] MEDS: EYE OPTH SCH (21:00)
[2021-08-23] MEDS: LATANOPROST 0.005% OPTH SCH (21:00)
[2021-08-23] MEDS: ATORVASTATIN CALCIUM 40 MG PO SCH (21:00)
[2021-08-24] MEDS: ENOXAPARIN 80 MG/0.8 ML SQ SCH ×2 (05:10→18:15)
[2021-08-24] MEDS: LEVOTHYROXINE SODIUM 25 MCG PO SCH (05:10)
[2021-08-24] MEDS: Levofloxacin500mg IV 500 MG/100 ML BAG IV SCH (06:07)
[2021-08-24 06:09] LABS: Absolute Lymphocytes (CBC) 0.7 K/uL (0.7-4.9); Lymphocytes % 11.4 % (15.3-44.8); MPV 8.8 fL (7.6-11.3); RBC Red Blood Cell Count 3.26 M/uL (4.33-5.43)
[2021-08-24 06:22] LABS: Albumin 3.5 g/dL (3.4-5.0); Bilirubin Total 0.2 mg/dL (0.2-1.0); Potassium 3.5 mmol/L (3.5-5.1); Protein, Total 6.6 g/dL (6.4-8.2)
[2021-08-24] MEDS: DIMETHYL FUMARATE 240 MG PO SCH ×2 (09:00→20:35)
[2021-08-24] MEDS: TIMOLOL 0.25% OPTH SCH (09:07)
[2021-08-24] MEDS: FINASTERIDE 5 MG PO SCH (09:10)
[2021-08-24] MEDS: OXYBUTYNIN CHLORIDE 5 MG PO SCH ×3 (09:11→20:18)
[2021-08-24] MEDS: METOPROLOL TARTRATE 25 MG PO SCH ×2 (09:11→20:20)
[2021-08-24] MEDS: CARBAMAZEPINE 200 MG PO SCH ×3 (09:11→20:16)
[2021-08-24] MEDS: GABAPENTIN 300 MG PO SCH ×3 (09:12→20:20)
[2021-08-24] MEDS: [UNRECOGNIZED DRUG - OTHER] OPTH SCH ×3 (09:13→20:21)
[2021-08-24] MEDS: BRIMONIDINE TARTRATE OPTH SCH ×3 (09:13→20:21)
[2021-08-24] MEDS: TIMOLOL OPTH SCH ×3 (09:13→20:21)
[2021-08-24] MEDS: lisinopriL 5 MG TAB PO SCH (09:14)
[2021-08-24] MEDS: ASPIRIN EC 81 MG TAB PO SCH (09:14)
--- NOTE | 2021-08-24 09:20 | PN ---
Date of Progress Note: 08/24/2021 Subjective: The patient was seen this morning for followup. He was lying in bed, not in distress. Yesterday, he did ambulate with walker with 's help at least 2 different times and today they are planning to do same thing. He had uneventful day except early this morning he has some chest pain l asted for about 15 minutes or so and it is in the similar location as yesterday. No associated sympt oms and pain relieved on its own as he reports. Objective: Vital Signs: Reviewed. HEENT: Unremarkable. Lungs: Clear to auscultation. No rales. No wheezing. Not in any respiratory distress. Heart: Sounds normal. Abdomen: Soft. Bowel sounds normal. No guarding, rigidity, tenderness, or distention. Extremity: No leg edema. Laboratory Data: White count 5.9, hemoglobin 10.8, platelets 159. Sodium 131, potassium 3.5, chlori de 97, bicarb 27, BUN 11, creatinine 0.50, glucose 109. Liver function tests unremarkable. LDL chol esterol 62, triglycerides 94, total cholesterol 133, HDL 52. Last troponin yesterday 695. Impression: 1.Urinary tract infection. 2.Non-ST segment elevation myocardial infarction. 3.Coronary artery disease. 4.Hypertension. 5.Hyperlipidemia. 6.Anemia, unspecified. Plan: We will go ahead and continue current aspirin, Lovenox, high dose statin therapy. The patient 's vital signs reviewed. Last temperature this morning was 99.4, otherwise his temperature was lower than that since early yesterday morning, temperature spike of 101 degrees Fahrenheit. We started Le vaquin yesterday and that seems to be working well for him and we will continue that. So far blood c ulture and urine culture have remained negative. Cardiology consultation is appreciated and the coretta ent probably will have cardiac cath procedure day after tomorrow. Ambulation was encouraged today. The patient has not had a bowel movement in last couple of days and we will order some stool softener and laxative for him. Plan of treatment discussed with the patient and the patient's who was a t bedside. JESS/MODL Voice ID: [id number] Report ID: [id number]
--- NOTE | 2021-08-24 17:35 | PN ---
Date of Progress Note: 08/24/2021 Subjective: Seen by bedside, doing relatively well. Low-grade temperature. No chest pain. Review of Systems: No chest pain at the present time. No shortness of breath, orthopnea, or cough. No nausea, vomiting , or diarrhea. No abdominal pain. All other systems reviewed and are negative. Physical Examination: Vital Signs: Reviewed. Head and Neck: Pupils are equal, reactive to light. Intact eye movements. No JVD. No cervical lym phadenopathy. Neck is supple. Thyroid is not enlarged. Lungs: Clear to auscultation bilaterally. No rhonchi, rales, or crackles. No accessory muscle use. HEART: Regular rhythm. No extra sounds. Abdomen: Soft, nontender. Bowel sounds positive. No organomegaly. No masses or hernia. No rigidi ty or rebound. Extremities: No clubbing or cyanosis. Intact pulses. Skin: No rashes. Neurologic: Alert, awake, oriented x3. No acute focal deficits appreciated. Investigations: Hemoglobin is 10.8. Troponin peaked at 695 and creatinine 0.5. Assessment And Recommendation: 1.Non-ST elevation myocardial infarction. Continue baby aspirin and Lovenox therapeutic dosing and plan for coronary angiogram on Wednesday morning. 2.Urinary tract infection, managed with proper antibiotics. 3.Hypertension. Blood pressure is borderline. The patient could benefit from a low-dose beta-block er, metoprolol 25 mg twice a day. SR/MODL Voice ID: [id number] Report ID: [id number]
[2021-08-24] MEDS: ATORVASTATIN CALCIUM 40 MG PO SCH (20:17)
[2021-08-24] MEDS: [UNRECOGNIZED DRUG - OTHER] OPTH SCH (20:29)
[2021-08-24] MEDS: LATANOPROST 0.005% OPTH SCH (20:36)
[2021-08-24] MEDS: EYE OPTH SCH (20:36)
[2021-08-24] MEDS ORDERED: POLYVINYL ALCOHOL 1.4% 15 ML OPTH SCH (21:00)
[2021-08-25] MEDS: ENOXAPARIN 80 MG/0.8 ML SQ SCH ×2 (05:48→17:47)
[2021-08-25] MEDS: LEVOTHYROXINE SODIUM 25 MCG PO SCH (05:48)
[2021-08-25] MEDS: Levofloxacin500mg IV 500 MG/100 ML BAG IV SCH (07:08)
[2021-08-25] MEDS: DIMETHYL FUMARATE 240 MG PO SCH ×2 (09:44→21:06)
[2021-08-25] MEDS: [UNRECOGNIZED DRUG - OTHER] OPTH SCH ×3 (09:44→21:04)
[2021-08-25] MEDS: BRIMONIDINE TARTRATE OPTH SCH ×3 (09:44→21:04)
[2021-08-25] MEDS: TIMOLOL OPTH SCH ×3 (09:44→21:04)
[2021-08-25] MEDS: CARBAMAZEPINE 200 MG PO SCH ×3 (09:45→21:06)
[2021-08-25] MEDS: ASPIRIN EC 81 MG TAB PO SCH (09:45)
[2021-08-25] MEDS: FINASTERIDE 5 MG PO SCH (09:45)
[2021-08-25] MEDS ORDERED: BISACODYL 10 MG RECTAL SUPP PR ONE (09:45)
[2021-08-25] MEDS: lisinopriL 5 MG TAB PO SCH (09:45)
[2021-08-25] MEDS: GABAPENTIN 300 MG PO SCH ×3 (09:45→21:10)
[2021-08-25] MEDS: TIMOLOL 0.25% OPTH SCH (09:46)
[2021-08-25] MEDS: METOPROLOL TARTRATE 25 MG PO SCH ×2 (09:46→21:05)
[2021-08-25] MEDS: OXYBUTYNIN CHLORIDE 5 MG PO SCH ×3 (09:46→21:04)
--- NOTE | 2021-08-25 11:26 | PN ---
Date of Progress Note: 08/25/2021 Subjective: The patient was seen this morning for followup. He was sitting in chair, eating breakfa st. Denies any new complaints. He did have a brief episode of chest pain early this morning, resol ed without any intervention. The patient had diarrhea several times on , which is about 4-5 days ago and after multiple diarrhea stool he has not had any bowel movement and is concerned ab out this problem and the patient has a neurogenic bowel and neurogenic bladder, so this is not unusua l for him to have constipation like that, but she is requesting Dulcolax rectal suppository as she us es 2 suppositories at home when something like this happens to get some relief and she already has st arted him giving some prunes and yesterday stool softener did not work. He denies any abdominal pain or any discomfort in the rectum area. Objective: Vital Signs: Reviewed. HEENT: Unremarkable. Lungs: Clear to auscultation. Heart: Sounds normal. Abdomen: Soft. Bowel sounds normal. No guarding, rigidity, tenderness, distention. EXTREMITIES: No leg edema. Impression: 1.Non-segment elevation myocardial infarction. 2.Coronary artery disease. 3.Hypertension. 4.Hyperlipidemia. 5.Neurogenic bladder. 6.Neurogenic bowel. Plan: We will go ahead and continue current medical management. 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 The patient will under go cardiac cath procedure tomorrow. Further plan of treatment will depend on that. I will see him meagan rrow morning. JESS/MODL Voice ID: [id number] Report ID: [id number]
--- NOTE | 2021-08-25 19:53 | PN ---
Date of Progress Note: 08/25/2021 Subjective: Seen by bedside, doing very well. No further episodes of chest pain. Review of Systems: No chest pain, shortness of breath, orthopnea, or cough. No nausea, vomiting, diarrhea. No abdomina l pain. All other systems reviewed and are negative. Physical Examination: Vital Signs: Reviewed. Head and Neck: Pupils are equal and reactive to light. Intact eye movements. No JVD. No cervical lymphadenopathy. Neck is supple. Thyroid is not enlarged. Lungs: Clear to auscultation bilaterally. No rhonchi, rales, or crackles. No accessory muscle use. Heart: Regular rate and rhythm. No extra sounds. Abdomen: Soft, nontender. Bowel sounds positive. No organomegaly. No masses or hernia. No rigidi ty or rebound. Extremities: No clubbing or cyanosis. Intact pulses. Skin: No rashes noted. Neurologic: Alert, awake, oriented x3. No acute focal deficits appreciated. Investigations: Labs were reviewed. Assessment And Recommendation: 1.Non-ST elevation myocardial infarction. Keep n.p.o. past midnight for coronary angiogram tomorrow morning. Discussed risks, benefits, and alternatives with the patient and the patient's family, and they agreed to proceed. 2.Urinary tract infection, proper antibiotics. /CHIRAG Voice ID: [id number] Report ID: [id number]
[2021-08-25] MEDS: EYE OPTH SCH (21:00)
[2021-08-25] MEDS: [UNRECOGNIZED DRUG - OTHER] OPTH SCH (21:00)
[2021-08-25] MEDS: LATANOPROST 0.005% OPTH SCH (21:00)
[2021-08-25] MEDS: ATORVASTATIN CALCIUM 40 MG PO SCH (21:00)
[2021-08-26] MEDS ORDERED: NA CHLORIDE 0.9% 1,000 ML ONE (05:46)
[2021-08-26] MEDS: ENOXAPARIN 80 MG/0.8 ML SQ SCH (06:00)
[2021-08-26] MEDS: ASPIRIN EC 81 MG TAB PO SCH (06:02)
[2021-08-26] MEDS: METOPROLOL TARTRATE 25 MG PO SCH (06:03)
[2021-08-26] MEDS: Levofloxacin500mg IV 500 MG/100 ML BAG IV SCH (06:05)
[2021-08-26] MEDS: LEVOTHYROXINE SODIUM 25 MCG PO SCH (06:13)
[2021-08-26] MEDS: GABAPENTIN 300 MG PO SCH ×2 (08:00→11:56)
[2021-08-26] MEDS: DIMETHYL FUMARATE 240 MG PO SCH (08:34)
[2021-08-26] MEDS: BRIMONIDINE TARTRATE OPTH SCH ×2 (08:34→16:08)
[2021-08-26] MEDS: TIMOLOL OPTH SCH ×2 (08:34→16:08)
[2021-08-26] MEDS: [UNRECOGNIZED DRUG - OTHER] OPTH SCH ×2 (08:34→16:08)
[2021-08-26] MEDS: FINASTERIDE 5 MG PO SCH (08:34)
[2021-08-26] MEDS: CARBAMAZEPINE 200 MG PO SCH ×2 (08:34→11:56)
[2021-08-26] MEDS: OXYBUTYNIN CHLORIDE 5 MG PO SCH ×2 (08:35→16:07)
[2021-08-26] MEDS: TIMOLOL 0.25% OPTH SCH (08:35)
[2021-08-26] MEDS: lisinopriL 5 MG TAB PO SCH (08:35)
[2021-08-26] MEDS ORDERED: FENTANYL CITR 100 MCG/2 ML ONE (09:38)
[2021-08-26] MEDS ORDERED: HEPA 1000U/500MLS 1,000 UNIT/500 ML BAG IV ONE (09:38)
[2021-08-26] MEDS ORDERED: NA CHLORIDE 0.9% 50 ML ONE (09:39)
[2021-08-26] MEDS ORDERED: MIDAZOLAM HCL 5 ML ONE (09:39)
[2021-08-26] MEDS ORDERED: ATROPINE SULF 1 MG/10 ML SYR IV ONE (09:39)
[2021-08-26] MEDS ORDERED: LIDOCAINE 1% MPF 5 ML VIAL ONE (09:39)
[2021-08-26] MEDS ORDERED: HYDRALAZINE HCL 20 MG/ML VIAL ONE ×2 (10:30→11:17)
[2021-08-26] MEDS ORDERED: PRASUGREL (EFFIENT) 10 MG TAB ONE (10:52)
--- NOTE | 2021-08-26 11:17 | OP ---
Date of Procedure: 08/26/2021 Surgeon: Jonathan Holcomb MD Junk Dealer: Ms. Alyson Fired. He will see us in the office in the next week or 2. He will go home on statin, beta-blockers, aspiri n, and Plavix. The patient had been admitted to Dr. Parham on 08/21/2021. He was admitted with a non-STEMI. Procedure In Detail: In the cardiac cath rn today, he was brought down on 08/26/2021 as an inpatient. He w as prepped and draped in routine sterile fashion. Given Versed and fentanyl for sedation. He was gi gopal IV hydralazine for hypertension x2. A 6-Grenadian sheath introduced in the right common femoral art agusto successfully using the Seldinger technique and 10 cc of Xylocaine. Common femoral artery angiogr am revealed a 90% ostial profunda. StarClose was used to close the case. Chad catheter left and right were used to do the diagnostic catheterization. He was found to have a normal left main, 50% p roximal LAD. He was found to have a 70% distal circumflex, very large, codominant. There were some proximal circumflex stents, they were open. The RCA had 95% proximal RCA stenosis definitely causing his IN. For care, we decided to intervene. A JR4 guide catheter with sidehole 6-Grenadian was used to cannulate the right main. A 0.014 [place] wire was used to cross the lesion successfully. A 2.75 x 16 Synergy stent was deployed in the proximal RCA at 14 atmospheres for a total of 2.95 cm. 60 mg of Effient were given. Angiomax was given. The patient tolerated the procedure well. There were no c omplications. Blood loss was 5 mL. Postoperative Diagnoses: 1.Coronary artery disease, status post successful primary stent of the RCA. 2.70% stenosis in the circumflex that will need to be stented later. 3.50% proximal LAD. We can evaluate that with a Lexiscan or FFR later down the road. 4.Peripheral arterial disease with a 90% profunda stenosis. The patient will remain in the hospital for few hours. He will go home today after 2 hours of bedrest. JUDITH/CHIRAG Voice ID: [id number] Report ID: [id number]
--- NOTE | 2021-08-26 12:22 | EKG ---
Test Date: 2021-08-24 Test Time: 06:37:47 Precision Lens Polisher: RT MEASUREMENT RESULTS: Intervals: Rate: 77 ID: [id number] QRSD: 110 QT: 390 QTc: 441 [place]: P: 42 ID: [id number] QRS: 18 T: 14 INTERPRETIVE STATEMENTS: Normal sinus rhythm Possible Left atrial enlargement ST abnormality, possible digitalis effect Abnormal ECG Compared to ECG 08/23/2021 04:27:46 ST (T wave) deviation now present Electronically Signed On 08-26-21 12:17:10 CDT by Jonathan Holcomb
--- NOTE | 2021-08-26 12:25 | EKG ---
Test Date: 2021-08-23 Test Time: 04:27:46 Torch Straightener And Heater: RT MEASUREMENT RESULTS: Intervals: Rate: 75 NJ: 204 QRSD: 104 QT: 384 QTc: 428 [place]: P: 37 NJ: 204 QRS: 7 T: 20 INTERPRETIVE STATEMENTS: Normal sinus rhythm Possible Left atrial enlargement Borderline ECG Compared to ECG 04/23/2019 18:44:08 Sinus bradycardia no longer present First degree AV block no longer present Left ventricular hypertrophy no longer present T-wave abnormality no longer present Electronically Signed On 08-26-21 12:17:29 CDT by Jonathan Holcomb
[2021-08-26 15:52] VITALS: BP 169/73; TEMP 98.7; O2SAT 100
== END 2021-08-26 16:45 | disposition home health service (06) | DRG 981 ==
LOC: ER 14:29 → OBSVTOIN 21:05 → ERHOLD 21:05 → 4TH 22:45
PROVIDERS: ADMIT Internal Medicine; ATTEND Internal Medicine
PROC: 027034Z Dilation of Coronary Artery, One Artery with Drug-eluting Intraluminal Device, Percutaneous Approach (ICD-10-PCS; principal; 2021-08-26)
PROC: B2001ZZ Plain Radiography of Single Coronary Artery using Low Osmolar Contrast (ICD-10-PCS; 2021-08-26)
DX: N39.0 Urinary tract infection, site not specified (principal); G92.9 Unspecified toxic encephalopathy; I21.4 Non-ST elevation (NSTEMI) myocardial infarction; E87.1 Hypo-osmolality and hyponatremia; K59.2 Neurogenic bowel, not elsewhere classified; I25.10 Atherosclerotic heart disease of native coronary artery without angina pectoris; E03.9 Hypothyroidism, unspecified; E78.5 Hyperlipidemia, unspecified; I10 Essential (primary) hypertension; G35 Multiple sclerosis; N31.9 Neuromuscular dysfunction of bladder, unspecified; R53.81 Other malaise; D64.9 Anemia, unspecified; I73.9 Peripheral vascular disease, unspecified; Z95.5 Presence of coronary angioplasty implant and graft; H54.8 Legal blindness, as defined in USA; I25.2 Old myocardial infarction; Z20.822 Contact with and (suspected) exposure to COVID-19
CPT/HCPCS: 36415; 76770; 76857; 80048; 80053; 80061; 80076; 81003; 81015; 82550; 82553; 82947; 84484; 85025; 85347; 87040; 87086; 87088; 93005; 93454; 96374; 97116; 97161; 97530; 99283; C1725; C1893; C9600; J0360; J0583; J1644; J1650; J2250; J3010; J3490; J7030; Q9967; U0003

== ENCOUNTER 2021-10-16 06:30 | Day surgery (SDC) | payer OTHER, MEDICARE ==
[2021-10-15 10:09] LABS: Absolute Lymphocytes (CBC) 0.6 K/uL (0.7-4.9); Hematocrit 32.4 % (39.6-49.0); Lymphocytes % 14.8 % (15.3-44.8); MCV 94.1 fL (80-100); MPV 8.4 fL (7.6-11.3); RBC Red Blood Cell Count 3.45 M/uL (4.33-5.43)
[2021-10-15 10:18] LABS: Protime INR 0.95
--- NOTE | 2021-10-15 10:19 | RAD REPORT ---
EXAM DESCRIPTION: RAD - Chest Pa And Lat (2 Views) - 10/15/2021 10:05 am CLINICAL HISTORY: Pre op pending heart stent Chest pain. COMPARISON: Abdomen 1 View (KUB) dated 01/01/2021; Chest Single View dated 04/23/2019; Chest Pa And La t (2 Views) dated 07/03/2018; Chest Pa And Lat (2 Views) dated 12/30/2017 FINDINGS: The lungs are emphysematous but clear. The heart is upper limit of normal in size. No disp laced fractures. IMPRESSION: Mild COPD.
[2021-10-15 10:22] LABS: Potassium 4.7 mmol/L (3.5-5.1)
--- NOTE | 2021-10-15 12:39 | EKG ---
Test Date: 2021-10-15 Test Time: 09:39:12 [employer] Special Agent: DONATO MEASUREMENT RESULTS: Intervals: Rate: 46 HI: 238 QRSD: 102 QT: 456 QTc: 399 [place]: P: 33 HI: 238 QRS: 0 T: 69 INTERPRETIVE STATEMENTS: Marked sinus bradycardia with 1st degree AV block Possible Left atrial enlargement Left ventricular hypertrophy Abnormal ECG Compared to ECG 08/24/2021 06:37:47 First degree AV block now present Left ventricular hypertrophy now present Sinus rhythm no longer present ST (T wave) deviation no longer present Electronically Signed On 10-15-21 12:38:53 CDT by Jonathan Holcomb
[2021-10-16] MEDS ORDERED: HEPA 1000U/500MLS 1,000 UNIT/500 ML BAG IV ONE (06:38)
[2021-10-16] MEDS ORDERED: MIDAZOLAM HCL 2 MG/2 ML INJ ONE (06:39)
[2021-10-16] MEDS ORDERED: FENTANYL CITR 100 MCG/2 ML ONE (06:39)
[2021-10-16] MEDS ORDERED: PRASUGREL (EFFIENT) 10 MG TAB ONE (06:39)
[2021-10-16] MEDS ORDERED: NA CHLORIDE 0.9% 50 ML IV ONE (06:40)
[2021-10-16] MEDS ORDERED: ATROPINE SULF 1 MG/10 ML SYR IV ONE (06:40)
[2021-10-16] MEDS ORDERED: NITROGLYCERIN/D5W 25 MG/250 ML BTL IV ONE (06:41)
[2021-10-16] MEDS ORDERED: NITROGLYCERIN 100 MCG/ML SYR (for cath lab use only) IV ONE (06:41)
[2021-10-16] MEDS ORDERED: NA CHLORIDE 0.9% 500 ML ONE (06:51)
[2021-10-16 07:17] VITALS: TEMP 97.1
[2021-10-16] MEDS ORDERED: ASPIRIN 325 MG TAB ONE (08:09)
[2021-10-16] MEDS ORDERED: HYDRALAZINE HCL 20 MG/ML VIAL ONE (09:17)
--- NOTE | 2021-10-16 10:53 | OP ---
Date of Procedure: 10/16/2021 Surgeon: Jonathan Holcomb MD Blender Operator: Ms. Alyson Fried. Procedures: Left heart catheterization, selective coronary arteriogram, common femoral artery angiog jina, and primary stent of the circumflex. Indication: Unstable angina and coronary artery disease. Mr. Baird is 70. Has had an angioplasty an d stent of his RCA and circumflex has some moderate LAD disease. Continues to have some chest pain. In July 2021, we performed an RCA stent. At that time, I noticed a 70% stenosis in the circumflex. I had plan to stage that intervention. He also had 50% and 60% ostial LAD and distal LAD, which was a small vessel. Procedure In Detail: He was brought to the optical lab technician today as an outpatient, prepped and draped in routine sterile fashion. Given Versed and fentanyl for sedation. Using the Seldinger technique an d 10 cc of Xylocaine, a 6-[place]ian sheath was introduced in the right common femoral artery. Angiograp hy there was normal and the common femoral artery. StarClose was used to close the case. Chad ca theter JL4 and JR4 were used to do the diagnostic catheterization. The RCA stent was widely open. L eft main was normal. Proximal circumflex was open. Distal to the circumflex, there was a 70% stenos is. LAD had a 50% ostial and 50% to 60% distal stenosis. The LAD itself distally was very small. W e decided to intervene. A XB3.5 guide with side-hole was placed 6-[place]ian in the left main. A [place] wire 0.014 was used to cannulate and cross the lesion. A 3.0 x 12 stent was used to stent the lesio n and overlapped old stent. We went up to 14 atmospheres for 30 seconds, 0% residual, excellent resu lts, VENANCIO-3 flow. The patient tolerated the procedure well. There were no complications. Blood los s was 5 cc. Total conscious sedation 45 minutes. The patient received Angiomax, aspirin, and Effien t during the procedure. Postoperative Diagnosis: Coronary artery disease, status post successful primary stent of the circum flex. We will continue present regimen at home. He will have to keep a close eye on the LAD. May have him do a stress test in the next 6 months or so to see if the LAD is significant. If it is, I would pre rachel that we do that in [place]. JUDITH/CHIRAG Voice ID: [id number] Report ID: [id number]
[2021-10-16 15:04] VITALS: BP 137/49; O2SAT 100
== END 2021-10-16 15:00 | disposition home or self-care (01) ==
LOC: CCL 06:30
DX: I25.110 Atherosclerotic heart disease of native coronary artery with unstable angina pectoris (principal); I10 Essential (primary) hypertension; I44.0 Atrioventricular block, first degree; R00.1 Bradycardia, unspecified; I65.23 Occlusion and stenosis of bilateral carotid arteries; I70.213 Atherosclerosis of native arteries of extremities with intermittent claudication, bilateral legs; E78.2 Mixed hyperlipidemia; Z95.5 Presence of coronary angioplasty implant and graft; Z87.891 Personal history of nicotine dependence; Z79.02 Long term (current) use of antithrombotics/antiplatelets; Z79.82 Long term (current) use of aspirin; Z79.899 Other long term (current) drug therapy; Z88.3 Allergy status to other anti-infective agents; Z82.49 Family history of ischemic heart disease and other diseases of the circulatory system
CPT/HCPCS: 36415; 71046; 80048; 85025; 85347; 85610; 85730; 93005; 93454; C1725; C1893; C9600; J0360; J0583; J1644; J2250; J3010; J7040; Q9967

== ENCOUNTER 2022-04-02 18:40 | Emergency (ER) | payer OTHER, MEDICARE ==
--- OUTSIDE RECORDS SUMMARY | 2022-04-02 18:45 | XMS REPORT | Continuity of Care Document ---
:1950 Author Organization [facility] t Address [address] [place] [address] Care Team Providers Name Role Phone Asked, No Pcp Primary Care Physician Unavailable Reynold uCrtis Attending Clinician Unavailable Mile Norton Attending Clinician Unknown, Attending Attending Clinician Unavailable MILE DELUNA Attending Clinician Unavailable Matt Rangel Attending Clinician CATE TY Attending Clinician Unavailable Cate Allen Attending Clinician MATT OLIVA Attending Clinician Unavailable Lolly Jara RN Attending Clinician Unavailable Only, Ang Db Test Attending Clinician Unavailable Therapy, Adc Covid Infusion Attending Clinician Unavailable Tatyana Milan MD Attending Clinician TATYANA MILAN Attending Clinician Unavailable DEUCE HOLCOMB Attending Clinician Unavailable EbDeuce Billingsley Attending Clinician Mikki SALEEM, Ni Deleon Attending Clinician Unavailable Ferdinand Gomez DO Attending Clinician Tamiko COBURN, Issac Cohen Attending Clinician JOE MILES Attending Clinician Unavailable KARUNA KIRKPATRICK Attending Clinician Unavailable TATE FERRELL Admitting Clinician Unavailable Payers Payer Name Policy Type Policy Number Effective Date Expiration Date S ource Problems Condition Condition Condition Status Onset Resolution Last Treating Co mments Source Name Details Category Date Date Treatment Clinician Date Hyperlipid Hyperlipid Disease Active M ethodi emia emia [facility] 00:[facility]: Hospita 00 l Essential Essential Disease Active Met hodi hypertensi hypertensi 11-21 st on on 00:00: Hospita 00 l Coronary Coronary Disease Active Metho di artery artery 4 st disease disease 00:00: Hospita involving involving 00 [place] coronary coronary artery of artery of [place] 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 pectoris pectoris Stented Stented Disease Active [facility]i coronary coronary 4 st artery artery 00:00: Hospita 00 l SAH SAH Disease Active [facility] ([facility] (subarachn 9-14 [facility] oid oid 00:00: Medical hemorrhage hemorrhage 00 Ce nter ) ) Vasovagal Vasovagal Disease Active [facility]ope [facility]ope [facility] Subarachno Subarachno Disease Active M ethodi id bleed id bleed [facility]05 st 00:00: Hospita 00 l Syncope Syncope Disease Active [facility] 8-03 st 00:00: Hospita 00 l Hypoxia Hypoxia Disease Active [facility] 7-[facility] 00:00: Hospita 00 l No known No known Disease Unive rs active active ity of problems problems [facility] Allergies, Adverse Reactions, Alerts Allergy Allergy Status Severity Reaction(s) Onset Inactive Treating Comm ents Source Name Type Date Date Clinician AMANTADI DRUG Active Unknown-Cmnt Un chen NE INGREDI 09-04 ity of 00:00: [place] 00 Medical Branch METRONID DRUG Active Unknown-Cmnt Un chen AZOLE INGREDI 09-04 ity of 00:00: [place] 00 Medical Branch Amantadi Propensi Active Unknown - Uni vers ne ty to See comments 09-04 ity of adverse 00:00: [place] reaction 00 Medical s Branch Metronid Propensi Active Unknown - Uni vers azole ty to See comments 09-04 ity of adverse 00:00: [place] reaction 00 Medical s Branch Amantadi Propensi Active Other (See seizure [facility] ne ty to Comments) 9-11 [facility] adverse 00:[facility]: Medical s reaction 00 Center s Amantadi Propensi Active Other (See seizure [facility] ne ty to Comments) 9-11 [facility] adverse 00:00: Medical s reaction 00 Center s Metronid Propensi Active Other (See hallucina [facility] az[facility] ty to Comments) 9-11 tions [facility] adverse 00:00: Medical reaction 00 Center s Amantadi Propensi Active Other (See seizure M ethodi ne ty to Comments) 7-15 st adverse 00:00: Hospita reaction 00 l s to drug Metronid Propensi Active Other (See hallucina [facility]i azole ty to Comments) 7-[address] adverse 00:00: Hospita reaction 00 l s to drug NO KNOWN Drug Active [facility] ALLERGIE Class ity of S [facility] Social History Social Habit Start Date Stop Date Quantity Comments Source History of Current smoker [facility] tobacco use Exposure to 2022-02-05 2022-02-15 [facility] (event) [place] Alcohol intake 2021-03-27 2021-03-27 Current drinker [facility] 00:00:00 00:00:00 of alcohol (finding) Tobacco use and 2016-12-07 2016-12-[address] [facility] [facility] exposure 00:00:00 00:00:00 Medical Center Tobacco Comment 2015-10-11 2015-10-[address] [facility] 00:00:00 00:00:00 since 1982 Alcohol Comment 2015-10-11 2015-10-11 very seldom [facility] 00:00:00 00:00:00 Sex Assigned At [birth year] [facility] 00:00:00 00:00:00 Smoking Status Start Date Stop Date Source Unknown if ever smoked Universit y of [facility] Never smoked tobacco [facility] Ex-smoker 2017-07-02 00:00:00 2017-07-02 00:00:00 [facility] Medications Ordered Filled Start Stop Current Ordering Indication Dosage Frequency Signature Comments Components Source Medication Medication Date Date Medication? Clinician (SIG) Name Name montanac 2021-03- Yes [id number] 500mg Take 1 Univers in HCl 500 1-20 11-28 tablet by ity of mg tablet 00:00: 05:59 mouth [place] 00 :00 every 12 Medical (twelve) Branch hours for 7 days. ciprofloxac 2021-03- Yes [id number] 500mg Take 1 Univers in HCl 500 0-28 11-05 tablet by ity of mg tablet 00:00: 04:59 mouth [place] 00 :00 every 12 Medical (twelve) Branch hours for 7 days. ciprofloxac 2021-03- Yes [id number] 500mg Take 1 Univers in HCl 500 0-28 11-05 tablet by ity of mg tablet 00:00: 04:59 mouth [place] 00 :00 every 12 Medical (twelve) Branch hours for 7 days. Povidone-Io 2021-03 Yes [id number] Apply to Univers dine 10 % 0-24 area(s) 2 ity o f swab stick 00:00: (two) [place] 00 times Medical daily as Branch needed for Other (straight cath). Povidone-Io 2021-03 Yes [id number] Apply to Univers dine 10 % 0-24 area(s) 2 ity o f swab stick 00:00: (two) [place] 00 times Medical daily as Branch needed for Other (straight cath). Povidone-Io 2021-03 Yes [id number] Apply to Univers dine 10 % 0-24 area(s) 2 ity o f swab stick 00:00: (two) [place] 00 times Medical daily as Branch needed for Other (straight cath). cephALEXin 2021-03- No [id number] 500mg Take 1 Univers (KEFLEX) 0-24 10-28 capsule by ity of 500 mg 00:00: 00:00 mouth 4 [place] capsule 00 :00 (four) Medical times Branch daily for 10 days. ibuprofen 2020-03- No 800mg Q.[id number] Take 800 [facility] (ADVIL,MOTR 2-30 -[id number] IN) 800 MG 21:53: 00:00 3D mouth 3 Hos matilda tablet 50 :00 (three) l times a day as needed for mild pain. ibuprofen 2020-03- No 800mg Q.[id number] Take 1 [facility] (ADVIL) 800 2-30 -[id number] MG tablet 00:00: 05:59 3D (800 mg Hosp [facility] 00 :00 total) by l mouth 3 (three) times a day as needed for mild pain for up to 30 days. ibuprofen 2020-03 No 800mg Q.[id number] Take 1 [facility] (ADVIL) 800 2-27 04-[id number] MG tablet 00:00: 05:59 3D (800 mg Hosp [facility] 00 :00 total) by l mouth 3 (three) times a day as needed for mild pain for up to 30 days. carBAMazepi Yes 200mg Q.5D Take 200 M ethodi ne 8-[address] (TEGretol) 12:59: mouth 2 [facility]osp [facility] 200 mg 54 (two) l tablet times a day. finasteride Yes 5mg QD Take 5 mg M ethodi (PROSCAR) 5 -[address] mg tablet 12:59: daily. Hospit a 54 l gabapentin Yes 900mg QD Take 900 Me thodi (NEURONTIN) 8-[address] 300 MG 12:59: mouth Hospita capsule 54 daily with l dinner. latanoprost Yes 1[drp] QD Administer [facility] (XALATAN) 8-[address] 0.005 % 12:59: both eyes Hospi ta ophthalmic 54 nightly. l solution levothyroxi Yes 25ug QD Take 25 Met hodi ne 8-[address] (SYNTHROID, 12:59: mouth Hospi ta LEVOTHROID) 54 every l 25 MCG morning. tablet metoprolol Yes 25mg Q12H Take 25 mg M ethodi tartrate 8-[address] (LOPRESSOR) 12:59: every 12 Ho spita 25 mg 54 (twelve) l tablet hours. oxybutynin 0 Yes 5mg Q.[id number] Take 5 mg [facility] (DITROPAN) 8-[id number] mouth [address] 5 MG tablet 12:59: 3D (three) Hos matilda 54 times a l day. bisacodyl Yes 10mg Q24H Insert 10 Met hodi (DULCOLAX) 8-[address] 10 mg 12:59: the rectum Hospit a suppository 54 daily as l needed for constipati on. albuterol Yes 2.5mg Q4H Take 2.5 Met hodi (PROVENTIL) 8-[address] 2.5 mg /3 12:59: nebulizati Ho spita mL (0.083 54 on every 4 l %) (four) nebulizer hours as solution needed for shortness of breath. brinzolamid Yes 1[drp] Q.5D Apply 1 M ethodi e-brimonidi 8-[address] ne 12:59: eye 2 Hospita (SIMBRINZA) 54 (two) l 1-0.2 % times a drops,suspe day. Both nsion eyes dimethyl Yes 240mg Q.5D Take 240 Meth jeannette fumarate 8-[address] (TECFIDERA) 12:59: mouth 2 Hos matilda 240 mg 54 (two) l capsule,del times a ayed day. release(DR/ EC) BABY Yes Take by Methodi ASPIRIN 8-[address] ORAL 12:59: Hospita 54 l atorvastati 0 Yes 80mg QD Take 80 mg Methodi n (LIPITOR) 8-[address] 80 MG 12:59: daily. Hospita tablet 54 l carBAMazepi 0 Yes 200mg Q.5D Take 200 M ethodi ne 8-[address] (TEGretol) 12:59: mouth 2 Hosp [facility] 200 mg 54 (two) l tablet times a day. finasteride Yes 5mg QD Take 5 mg M ethodi (PROSCAR) 5 8-[address] mg tablet 12:59: daily. Hospit a 54 l gabapentin 0 Yes 900mg QD Take 900 Me thodi (NEURONTIN) 8-[address] 300 MG 12:59: mouth Hospita capsule 54 daily with l dinner. latanoprost Yes 1[drp] QD Administer [facility] (XALATAN) 8-[address] 0.005 % 12:59: both eyes Hospi ta ophthalmic 54 nightly. l solution levothyroxi Yes 25ug QD Take 25 Met hodi ne 8-[address] (SYNTHROID, 12:59: mouth Hospi ta LEVOTHROID) 54 every l 25 MCG morning. tablet metoprolol Yes 25mg Q12H Take 25 mg M ethodi tartrate 8-[address] (LOPRESSOR) 12:59: every 12 Ho spita 25 mg 54 (twelve) l tablet hours. oxybutynin Yes 5mg Q.[id number] Take 5 mg [facility] (DITROPAN) - [id number] by mouth 3 st 5 MG tablet 12:59: 3D (three) Hos matilda 54 times a l day. bisacodyl Yes 10mg Q24H Insert 10 Met hodi (DULCOLAX) 8-[address] 10 mg 12:59: the rectum Hospit a suppository 54 daily as l needed for constipati on. albuterol Yes 2.5mg Q4H Take 2.5 Met hodi (PROVENTIL) 8-[address] 2.5 mg /3 12:59: nebulizati Ho spita mL (0.083 54 on every 4 l %) (four) nebulizer hours as solution needed for shortness of breath. brinzolamid Yes 1[drp] Q.5D Apply 1 M ethodi e-brimonidi 8-[address] ne 12:59: eye 2 Hospita (SIMBRINZA) 54 (two) l 1-0.2 % times a drops,suspe day. Both nsion eyes dimethyl Yes 240mg Q.5D Take 240 Meth jeannette fumarate 8-[address] (TECFIDERA) 12:59: mouth 2 Hos matilda 240 mg 54 (two) l capsule,del times a ayed day. release(DR/ EC) BABY Yes Take by Methodi ASPIRIN 8-[address] ORAL 12:59: Hospita 54 l atorvastati 0 Yes 80mg QD Take 80 mg Methodi n (LIPITOR) 8-[address] 80 MG 12:59: daily. Hospita tablet 54 l amLODIPine 0 Yes 5mg QD Take 5 mg Me thodi (NORVASC) 5 3-[address] mg tablet 00:00: daily. Hospit a 00 l amLODIPine 2018 Yes 5mg QD Take 5 mg Me thodi (NORVASC) 5 3-[address] mg tablet 00:00: daily. Hospit a 00 l bisacodyl [address] (DULCOLAX, 9-14 mg [facility] BISACODYL,) 16:33: rectally Me dical 10 mg 05 daily. Center suppository carBAMazepi 0 Yes 400mg Q.5D Take [address] ne 9-14 mg by [facility] (TEGRETOL) 16:33: mouth 2 Medi nelson 200 mg 05 (two) Center tablet times daily . cetirizine [id number] Yes 5mg QD Take [address] (ZYRTEC) 5 9-14 by mouth [facility] MG tablet 16:33: daily. Medica l 05 [place] cyanocobala 0 Yes 1000ug Inject [facility] min 9-14 1,000 mcg [facility] (VITAMIN 16:33: intramuscu Med ical B-12) 1,000 05 larly Center mcg/mL once. injection finasteride 2017-0 Yes 5mg QD Take [address] (PROSCAR) 5 9-14 by mouth Luke s mg tablet 16:33: daily. Medica l 05 [place] gabapentin 2017-0 Yes 600mg Q.5D Take [address] (NEURONTIN) 9-14 mg by [facility] 600 MG 16:33: mouth 2 Medical tablet 05 (two) Center times daily With breakfast and lunch . gabapentin 2017-0 Yes 900mg QD Take [address] (NEURONTIN) 9-14 mg by [facility] 300 MG 16:33: mouth Medical capsule 05 every Center evening With dinner and at bedtime. . ibuprofen 2017-0 Yes 800mg Take [address] (ADVIL,MOTR 9-14 mg by [facility] IN) 800 MG 16:33: mouth Medica l tablet 05 every 8 Center (eight) hours as needed for Pain. latanoprost 2017 Yes 1[drp] QD [address] (XALATAN) 9-14 nightly. [facility] 0.005 % 16:33: Medical ophthalmic 05 Center solution levothyroxi Yes 25ug Take [address] ne 9-14 mcg by [facility] (SYNTHROID, 16:33: mouth Medic al LEVOTHROID) 05 Every Center 25 MCG morning on tablet an empty stomach. metoprolol 2017 Yes 50mg QD Take [address] (TOPROL-XL) 9-14 by mouth Luke s 50 MG 24 hr 16:33: daily. Medi nelson tablet 05 Center niacin 100 Yes 100mg QD Take [address] MG tablet 9-14 mg by [facility] 16:33: mouth Medical 05 nightly . [place] oxybutynin Yes 5mg Q.[id number] Take [address] (DITROPAN) 9-14 [id number] by mouth 3 [facility] 5 MG tablet 16:33: 3D (three) Med ical 05 times Center daily. brinzolamid Yes Apply to [facility] e-brimonidi 9-14 eye(s). [facility] ne 16:33: Medical (SIMBRINZA) 05 Center 1-0.2 % DrpS simvastatin Yes 80mg QD Take [address] (ZOCOR) 80 9-14 by mouth [facility] MG tablet 16:33: nightly. Medi nelson 05 Center dimethyl [id number] Yes Q.5D Take by [facility] fumarate 9-14 mouth 2 [facility] (TECFIDERA) 16:33: (two) Medic al 240 mg CpDR 05 times Center daily. carBAMazepi Yes trigeminal 200mg QD Take [address] ne 9-14 neuralgia mg by [facility] (TEGRETOL) 16:33: mouth Medica l 200 mg 05 daily Center tablet Taken at 1pm daily . gabapentin 0 Yes 300mg QD Take [address] (NEURONTIN) 9-14 mg by [facility] 300 MG 16:33: mouth Medical capsule 05 nightly. Center albuterol Yes 2.5mg Take 2.[address] (PROVENTIL) 9-14 mg by [facility] 2.5 mg /3 16:33: nebulizati Me dical mL (0.083 05 on every 6 Cent er %) (six) nebulizer hours as solution needed for Wheezing. albuterol 2017-0 Yes 2.5mg Take 2.[address] (PROVENTIL) 9-14 mg by [facility] 2.5 mg /3 16:33: nebulizati Me dical mL (0.083 05 on every 6 Cent er %) (six) nebulizer hours as solution needed for Wheezing. bisacodyl 2017-[address] (DULCOLAX, 9-14 mg [facility] BISACODYL,) 16:33: rectally Me dical 10 mg 05 daily. Center suppository carBAMazepi 2017-0 Yes 400mg Q.5D Take [address] ne 9-14 mg by [facility] (TEGRETOL) 16:33: mouth 2 Medi nelson 200 mg 05 (two) Center tablet times daily . cetirizine 2017-0 Yes 5mg QD Take [address] (ZYRTEC) 5 9-14 by mouth [facility] MG tablet 16:33: daily. Medica l 05 Center cyanocobala 2017-0 Yes 1000ug Inject [facility] min 9-14 1,000 mcg [facility] (VITAMIN 16:33: intramuscu Med ical B-12) 1,000 05 larly Center mcg/mL once. injection finasteride 2017-0 Yes 5mg QD Take [address] (PROSCAR) 5 9-14 by mouth Luke s mg tablet 16:33: daily. Medica l 05 Center gabapentin 2017-0 Yes 600mg Q.5D Take [address] (NEURONTIN) 9-14 mg by [facility] 600 MG 16:33: mouth 2 Medical tablet 05 (two) Center times daily With breakfast and lunch . gabapentin 2017-0 Yes 900mg QD Take [address] (NEURONTIN) 9-14 mg by [facility] 300 MG 16:33: mouth Medical capsule 05 every Center evening With dinner and at bedtime. . ibuprofen 2017-0 Yes 800mg Take [address] (ADVIL,MOTR 9-14 mg by [facility] IN) 800 MG 16:33: mouth Medica l tablet 05 every 8 Center (eight) hours as needed for Pain. latanoprost 2017-0 Yes 1[drp] QD [address] (XALATAN) 9-14 nightly. [facility] 0.005 % 16:33: Medical ophthalmic 05 Center solution levothyroxi Yes 25ug Take [address] ne 9-14 mcg by [facility] (SYNTHROID, 16:33: mouth Medic al LEVOTHROID) 05 Every Center 25 MCG morning on tablet an empty stomach. metoprolol Yes 50mg QD Take [address] (TOPROL-XL) 9-14 by mouth Luke s 50 MG 24 hr 16:33: daily. Medi nelson tablet 05 Center niacin 100 Yes 100mg QD Take [address] MG tablet 9-14 mg by [facility] 16:33: mouth Medical 05 nightly . Center oxybutynin Yes 5mg Q.[id number] Take [address] (DITROPAN) 9-14 [id number] by mouth 3 [facility] 5 MG tablet 16:33: 3D (three) Med ical 05 times Center daily. brinzolamid Yes Apply to [facility] e-brimonidi 9-14 eye(s). [facility] ne 16:33: Medical (SIMBRINZA) 05 Center 1-0.2 % DrpS simvastatin Yes 80mg QD Take [address] (ZOCOR) 80 9-14 by mouth [facility] MG tablet 16:33: nightly. Medi nelson 05 Center dimethyl Yes Q.5D Take by [facility] fumarate 9-14 mouth 2 [facility] (TECFIDERA) 16:33: (two) Medic al 240 mg CpDR 05 times Center daily. carBAMazepi Yes trigeminal 200mg QD Take [address] ne 9-14 neuralgia mg by [facility] (TEGRETOL) 16:33: mouth Medica l 200 mg 05 daily Center tablet Taken at 1pm daily . gabapentin Yes 300mg QD Take [address] (NEURONTIN) 9-14 mg by [facility] 300 MG 16:33: mouth Medical capsule 05 nightly. Center Immunizations Ordered Filled Immunization Date Status Comments [facility] e Immunization Name Name BERNARDINO 2021-09-04 [facility] o f 00:00:00 [facility] BEBTELOVIMAB 2021-09-04 Completed University o f 00:00:00 [place] [facility] BESHAQUILLEELOVIMAB 2021-09-04 Completed University o f 00:00:00 [place] [facility] BESHAQUILLEELOVIMAB 2021-09-04 Completed University o f 00:00:00 [place] [facility] BEBTELOVIMAB 2021-09-04 Completed University o f 00:00:00 [facility] BESHAQUILLEELOVIMAB 2021-09-04 Completed University o f 00:00:00 [facility] Vital Signs Vital Name Observation Time Observation Value Comments Source Systolic blood 2022-02-15 21:08:00 108 mm[Hg] Univer sity of pressure [facility] Diastolic blood 2022-02-15 21:08:00 63 mm[Hg] Unive rsity of pressure [facility] Heart rate 2022-02-15 21:08:00 62 /min Universi ty [facility] Body temperature 2022-02-15 21:08:00 36.89 [facility] Respiratory rate 2022-02-15 21:08:00 16 /min Univ ersity of [facility] Oxygen saturation in 2022-02-15 21:08:00 99 /min University of Arterial blood by [employer] Pulse oximetry Branch Systolic blood 2022-01-23 17:44:00 149 mm[Hg] Univer sity of pressure [place] [facility] [place] Diastolic blood 2022-01-23 17:44:00 60 mm[Hg] Unive rsity of pressure [facility] Heart rate 2022-01-23 17:44:00 56 /min Universi ty [facility] Body temperature 2022-01-23 17:44:00 36.89 Tab[place] Univ ersity of [facility] Branch Respiratory rate 2022-01-23 17:44:00 20 /min Univ ersity [facility] Branch Body height 2022-01-23 17:44:[address] [facility] Body weight 2022-01-23 17:44:[address] [facility] BMI 2022-01-23 17:44:00 27.42 kg/m2 Universi ty [facility] Oxygen saturation in 2022-01-23 17:44:00 95 /min University of Arterial blood by [facility] Pulse oximetry Branch Systolic blood 2021-09-04 22:35:00 112 mm[Hg] Univer sity of pressure [facility] Diastolic blood 2021-09-04 22:35:00 52 mm[Hg] Unive rsity of [facility] Heart rate 2021-09-04 22:35:00 56 /min [facility] Body temperature 2021-09-04 22:35:00 36.33 [facility] Respiratory rate 2021-09-04 22:35:00 14 /min [facility] Oxygen saturation in 2021-09-04 22:35:00 98 /min University Arterial blood by [facility] Pulse oximetry [place] Body height 2021-09-04 21:15:00 170.2 cm [facility] Body weight 2021-09-04 21:15:00 79.379 kg [facility] BMI 2021-09-04 21:15:00 27.41 kg/m2 [facility] Systolic blood 2021-03-28 04:11:00 164 mm[Hg] [facility] pressure Diastolic blood 2021-03-28 04:11:00 74 mm[Hg] [facility] pressure Heart rate 2021-03-28 04:11:00 56 /min [facility] Body temperature 2021-03-28 04:11:00 36.61 Tabby [facility] Respiratory rate 2021-03-28 04:11:00 19 /min [facility] Oxygen saturation in 2021-03-28 04:11:00 100 /min [facility] Arterial blood by Pulse oximetry Body height 2021-03-28 01:34:00 170.2 cm [facility] Body weight 2021-03-28 01:34:00 83.462 kg [facility] BMI 2021-03-28 01:34:00 28.82 kg/m2 [facility] Procedures Procedure Date / Time Performed Performing Clinician Sourc e POCT URINALYSIS 2022-02-15 21:18:00 Sherlyn Singer [facility] XR WRIST 3+ VW LEFT 2021-03-28 02:11:00 Ferdinand Gomez [facility] XR HAND 3+ VW LEFT 2021-03-28 02:11:00 Ferdinand Gomez [facility] Plan of Care Planned Activity Planned Date Details Comments Source Future Scheduled 2022-03-12 65+ PNEUMOCOCCAL [facility] Test 11:51:08 VACCINE (1 - PCV) [code = 65+ PNEUMOCOCCAL VACCINE (1 - PCV)] Future Scheduled 2022-03-12 Hepatitis C screening [facility] Test 11:51:08 (procedure) [code = 245630845] Future Scheduled 2022-03-12 COLONOSCOPY SCREENING [facility] Test 11:51:08 [code = COLONOSCOPY SCREENING] Future Scheduled 2022-03-12 SHINGLES VACCINES (1 Met [facility] Test 11:51:08 of 2) [code = SHINGLES VACCINES (1 of 2)] Future Scheduled 2022-03-12 COVID-19 VACCINE (2 - [facility] Test 11:51:08 Pfizer series) [code = COVID-19 VACCINE (2 - Pfizer series)] Future Scheduled 2022-03-12 INFLUENZA VACCINE Method [facility] Test 11:51:08 [code = INFLUENZA VACCINE] Future Scheduled 2022-01-29 HEPATITIS B VACCINES Met [facility] Test 18:20:37 (1 of 3 - 3-dose series) [code = HEPATITIS B VACCINES (1 of 3 - 3-dose series)] Future Scheduled 2022-01-29 65+ PNEUMOCOCCAL [facility] Test 18:20:37 VACCINE (1 - PCV) [code = 65+ PNEUMOCOCCAL VACCINE (1 - PCV)] Future Scheduled 2022-01-29 Hepatitis C screening [facility] Test 18:20:37 (procedure) [code = 411081564] Future Scheduled 2022-01-29 COLONOSCOPY SCREENING [facility] Test 18:20:37 [code = COLONOSCOPY SCREENING] Future Scheduled 2022-01-29 SHINGLES VACCINES (1 Met [facility] Test 18:20:37 of 2) [code = SHINGLES VACCINES (1 of 2)] Future Scheduled 2022-01-29 COVID-19 VACCINE (2 - [facility] Test 18:20:37 Pfizer series) [code = COVID-19 VACCINE (2 - Pfizer series)] Future Scheduled 2022-01-29 INFLUENZA VACCINE Method [facility] Test 18:20:37 [code = INFLUENZA VACCINE] Encounters Start End Encounter Admission Attending Care Care Encounter Source Date/Time Date/Time Type Type Clinicians Facility Department ID 2021-04-23 Outpatient ODILON Curtis [facility] [id number] Common 14:10:02 Reynold [facility] 2022-02-15 2022-02-15 Urgent Mile Deluna [facility] [id number] Univers 15:00:00 15:20:00 Care Unknown, Attending HEALTH [id number] ity of [place] [id number] [place] LISA?BLEA [id number] [address] OFFICE [facility] 2022-02-15 2022-02-15 Outpatient R MIKIE [facility] [id number] Univers 15:00:00 15:00:00 MILE [facility] 2022-01-26 2022-01-26 [facility] .[id number] Univers 00:00:00 00:00:00 Matt [facility] [id number] ity [facility] [id number] [place] LISA?BLEA [id number] [address] OFFICE [facility] 2022-01-23 2022-01-23 Outpatient R MELONY [facility] [id number] Univers 12:40:00 13:04:46 CATE escobar [facility] 2022-01-23 2022-01-23 Urgent Ila Tytany [facility] [facility] 1.2.840. 114 [id number] Univers 12:40:00 13:00:00 Care Unknown, Attending HEALTH 350.1.13.10 ity of [place] 4.2.7.2.686 [place] LISA?BLEA [id number] [address] MEDICAL OFFICE [facility] 2022-01-19 2022-01-19 [facility] [id number] Univers 14:55:00 15:29:26 MATT katz f [facility] 2021-09-18 2021-09-18 Telephone KARUNA Jara [id number] Univers 00:00:00 00:00:00 Lolly GAY 350.1.13.10 i ty [facility] 4.2.7.2.686 [place] [id number] [address] 2021-09-16 2021-09-16 Outpatient R JUDITH [facility] [id number] Univers 15:00:00 15:15:07 MATT itfrancine o f [facility] 2021-09-16 2021-09-16 Laboratory Only, Ang Db Test [facility] 1.2.8 40.114 [id number] Univers 15:00:00 15:15:00 Only Judith Matt [facility] 350.1.13.10 ity of [place] 4.2.7.2.686 [place] LISA?BLEA [phone] [address] MEDICAL OFFICE [facility] 2021-09-04 2021-09-04 Nurse Therapy, Adc Covid Infusion [facility] 1.2.840.114 [id number] Univers 16:00:00 17:00:00 Visit Tatyana Milan 350.1.13.10 ity of [place] SURGICAL [phone] [address] 2021-09-04 2021-09-04 Outpatient R PRANAV [facility] [id number] Univers 16:00:00 16:00:[address] [facility] 2021-09-02 2021-09-02 Outpatient R AZUCENA [facility] [id number] Univers 09:00:00 09:25:[address] [facility] 2021-09-02 2021-09-02 Laboratory Only, Ang Db Test [facility] 1.2.8 40.114 [id number] Univers 09:00:00 09:15:00 Only Deuce Holcomb [facility] 350.1.13.10 ity of [place] 4.2.7.2.686 [place] LIAS?BLEA [phone] [address] MEDICAL OFFICE [facility] 2021-09-02 2021-09-02 Letter KARUNA Kaye 1.2.840.114 [id number] Univers 00:00:00 00:00:00 (Out) Ni GAY 350.1.13.10 it y of [facility] 4.2.7.2.686 [place] [id number] [place] [address] [address] 2021-03-30 2021-03-30 Travel 1.2.840.1 1.2.593.372 [id number] Methodi 00:00:00 00:00:[address] 3.430.2.7 0.2.7.3.698 Ho spita .[id number] 084.8 l .8 2021-03-27 2021-03-27 Emergency Ferdinand Gomez 1.2.840.1 [id number] Methodi 19:32:00 22:12:00 Issac Morrison [address] 3.430.2.7 Hospit a .3.351866 l .8 2021-03-27 2021-03-27 Travel 1.2.840.1 1.2.586.794 [id number] Methodi 00:00:00 00:00:[address] 3.430.2.7 0.2.7.3.698 Ho spita .3.879295 084.8 l .8 2020-11-18 2020-11-18 Outpatient [facility] [id number] [address] [place] 00:00:00 00:00:00 JOE [address] 2019-11-20 2019-11-20 Outpatient [facility] [id number] [address] [place] 00:00:00 00:00:00 JOE [address] Results Test Description Test Time Test Comments Results Result Comments Source POCT URINALYSIS W SPECIFIC GRAVITY 2022-02-15 21:21:00 Test Item Value Reference Range Interpretation Comme nts POCT U SP GRAV (test code = 1.015 mg/dl 1.005-1.025 3255) POCT PH U (test code = 3254) 5 mg/dl 5-8 POCT U LEUK EST (test code = ++ Negative - Negative 3263) POCT U NIT (test code = 3262) positive Negative - Negative POCT U PROT (test code = 3259) Negative - Negative POCT U GLU (test code = 3256) normal Negative - Negative POCT U KETONE (test code = ++med Negative - Negative 3258) POCT U UROBILI (test code = normal 0.2-1 3260) POCT U BILI (test code = 3261) negative Negative - Negative POCT U BLD (test code = 3257) about 50 Negative - Negative POCT U COLOR (test code = 3266) orange/yellow POCT U APPEAR (test code = cloudy 3267) JUAN (test code = JUAN) accurate development and interpretation of all internal controls Lab Interpretation (test code = Abnormal 65389-4) [facility] [id number] 13:51:00 Test Item Value Reference Range Interpretation Comments SCAN RESULT (test code = 9304816) Result comments: STREPTOCOCCUS SPECIES DETECTED (Non-Strep Pneumo; Non-Group A or Group B) First line therapy: Vancomycin De-escalate based on susceptibilities Other organisms and resistance markers not contained in this PCR panel cannot be excluded and follow-up of traditional culture results is required. This sample was tested at the [facility] Clinical Microbiology Laboratory using the Focus IP Blood Culture ID Panel. This test is FDA cleared for in vitro diagnostic use and has been verified and approved by the [facility] Clinical Microbiology laboratory for clinical use. Reference Range: Not DetectedBLOOD [id number] 13:19:00 Test Item Value Reference Range Interpretation [...] traditional culture results is required. This sample wastested at the [facility] Clinical Microbiology Laboratory using the NetSanityArray Blood Culture ID Panel. This test is FDA cleared for in vitro diagnostic use and has been verified and approved by the [facility] Clinical Microbiology laboratory for clinical use. Reference Range: Not DetectedBLOOD [id number] 19:00:00 Test Item Value Reference Range Interpretation Comments CULTURE (BEAKER) (test No growth in 5 days code = 1095) BLOOD [id number] 19:00:00 Test Item Value Reference Range Interpretation Comments CULTURE (BEAKER) (test No growth in 5 days code = 1095) CORTISOL,60 [id number] 15:41:00 Test Item Value Reference Range Interpretation [...] cortex of the adrenal glands to release co rtisol. Cortisol is a primary hormone, which aids the body's metabolism of fats, carbohydrates, and protein as well as sodium and potassium regulation.ACTH Stimulation Test: Exogenous administration ofbiologically active ACTH stimulates the secretion of cortisol from the adrenal gland. This test is used to evaluate adrenal function by measuring cortisol levels at baseline and at 30 and 60 minutes after the administration of 250 micrograms of cosyntropin (Cortrosyn). Patients who have received exogenous corticosteroids immediately prior to performing the ACTH Stimulation Test will often have elevated baseline cortisol levels, which may lead to erroneous interpretation of test results. The notable exception is with dexamethasone.Normal Response: An increase in cortisol after stimulation by ACTH isnormal. Post-stimulation cortisol concentration should be greater than 20 mcg/dL or the rate of risefrom baseline cortisol should be greater than or equal to 9 mcg/dL.Patients with sepsis or septic shock: According to a study by Caroline et al (JUAN J 2000,283(8):6359-45), the ACTH Stimulation Test provides important prognostic information. This study defined 3 groups of patients with sepsis or septic shock: 1. Good Survival: Low basal cortisol (<or=34 mcg/dL) and high ACTH response (>9mcg/dL) 2.Intermediate Survival: Low basal cortisol (<34 mcg/dL) and low response to ACTH (<or=9 mcg/dL)OR High basal cortisol (>34 mcg/dL) or high ACTH response (>9 mcg/dL) 3. Poor Survival: High basal cortisol (>34 mcg/dL) and [...] Source.Do not run this test if systemic hydroco rtisone, methylprednisolone, prednisolone or prednisone has been administered within the past 24 hours.Draw baseline cortisol level just prior to cosyntropin administration.Administer cosyntropin 1 mcg/mL via slow IV push over a period of 2 minutes. Flush the line after the dose to ensure the entire dose is delivered.Draw serum cortisol level 30 minutes after cosyntropin administration.Draw serum cortisol level 60 minutes after cosyntropin administration.CORTISOL,30 [id number] 15:40:00 Test Item Value Reference Range Interpretation [...] cortex of the adrenal glands to release co rtisol. Cortisol is a primary hormone, which aids the body's metabolism of fats, carbohydrates, and protein as well as sodium and potassium regulation.ACTH Stimulation Test: Exogenous administration ofbiologically active ACTH stimulates the secretion of cortisol from the adrenal gland. This test is used to evaluate adrenal function by measuring cortisol levels at baseline and at 30 and 60 minutes after the administration of 250 micrograms of cosyntropin (Cortrosyn). Patients who have received exogenous corticosteroids immediately prior to performing the ACTH Stimulation Test will often have elevated baseline cortisol levels, which may lead to erroneous interpretation of test results. The notable exception is with dexamethasone.Normal Response: An increase in cortisol after stimulation by ACTH isnormal. Post-stimulation cortisol concentration should be greater than 20 mcg/dL or the rate of risefrom baseline cortisol should be greater than or equal to 9 mcg/dL.Patients with sepsis or septic shock: According to a study by Caroline et al (JUAN J 2000,283(8):1038-45), the ACTH Stimulation Test provides important prognostic information. This study defined 3 groups of patients with sepsis or septic shock: 1. Good Survival: Low basal cortisol (<or=34 mcg/dL) and high ACTH response (>9mcg/dL) 2.Intermediate Survival: Low basal cortisol (<34 mcg/dL) and low response to ACTH (<or=9 mcg/dL)OR High basal cortisol (>34 mcg/dL) or high ACTH response (>9 mcg/dL) 3. Poor Survival: High basal cortisol (>34 mcg/dL) and [...] Source.Do not run this test if systemic hydroco rtisone, methylprednisolone, prednisolone or prednisone has been administered within the past 24 hours.Draw baseline cortisol level just prior to cosyntropin administration.Administer cosyntropin 1 mcg/mL via slow IV push over a period of 2 minutes. Flush the line after the dose to ensure the entire dose is delivered.Draw serum cortisol level 30 minutes after cosyntropin administration.Draw serum cortisol level 60 minutes after cosyntropin administration.CORTISOL,[id number] 11:51:00 Test Item Value Reference Range Interpretation Comments CORTISOL, BASELINE (CIARA) (test 11.8 ug/dL code = 1803) ACTH STIMULATION TEST INTERPRETATION GUIDELINES(Synonyms: Cortrosyn Test, Cosyntropin or Corticotropin Stimulation Test)Adenocorticotropic hormone (ACTH)is a tropic hormone, made in the pituitary gland, which travels trhough the bloodstream and stimulates the cortex of the adrenal glands to release co rtisol. Cortisol is a primary hormone, which aids the body's metabolism of fats, carbohydrates, and protein as well as sodium and potassium regulation.ACTH Stimulation Test: Exogenous administration ofbiologically active ACTH stimulates the secretion of cortisol from the adrenal gland. This test is used to evaluate adrenal function by measuring cortisol levels at baseline and at 30 and 60 minutes after the administration of 250 micrograms of cosyntropin (Cortrosyn). Patients who have received exogenous corticosteroids immediately prior to performing the ACTH Stimulation Test will often have elevated baseline cortisol levels, which may lead to erroneous interpretation of test results. The notable exception is with dexamethasone.Normal Response: An increase in cortisol after stimulation by ACTH isnormal. Post-stimulation cortisol concentration should be greater than 20 mcg/dL or the rate of risefrom baseline cortisol should be greater than or equal to 9 mcg/dL.Patients with sepsis or septic shock: According to a study by Caroline et al (JUAN J 2000,283(8):1038-45), the ACTH Stimulation Test provides important prognostic information. This study defined 3 groups of patients with sepsis or septic shock: 1. Good Survival: Low basal cortisol (<or=34 mcg/dL) and high ACTH response (>9mcg/dL) 2.Intermediate Survival: Low basal cortisol (<34 mcg/dL) and low response to ACTH (<or=9 mcg/dL) OR High basal cortisol (>34 mcg/dL) or high ACTH response (>9 mcg/dL) 3. Poor Survival: High basal cortisol (>34 mcg/dL) and [...] Source.Do not run this test if systemic hydroc ortisone, methylprednisolone, prednisolone or prednisone has been administered within the past 24 hours.Draw baseline cortisol level just prior to cosyntropin administration.Administer cosyntropin 1 mcg/mL via slow IV push over a period of 2 minutes. Flush the line after the dose to ensure the entire dose is delivered.Draw serum cortisol level 30 minutes after cosyntropin administration.Draw serum cortisol level 60 minutes after cosyntropin administration.URINE [id number] 10:21:00 Test Item Value Reference Range Interpretation Comments CULTURE (BEAKER) (test code = 1095) No growth RAD, CHEST, 1 VIEW, NON [id number] 08:44:00Reason for exam:->pnaShould this be performed at the bedside?->YesFINAL REPORT INDICATION: pna COMPARISON: None. TECHNIQUE: Chest radiograph, single view, portable technique. FINDINGS / IMPRESSION: There is no evidence of pneumonia or pulmonary edema. Cardiac and mediastinal contours are unremarkable. No pleural effusion or pneumothorax is demonstrated. Osseous structures are unremarkable. In summary, no evidence of acute pulmonary or cardiac abnormality. Signed: Bigg Mike MDReport Verified Date/Time: 12/09/2016 08:44:43 Reading Location: [facility] Diagnostic Imaging Reading Room [place] [address] MAGNESIUM 2016-12-09 08:08:00 Test Item Value Reference Range Interpretation Comments MAGNESIUM (BEAKER) (test code = 1.9 mg/dL 1.6-2.6 627) BASIC METABOLIC [id number] 08:08:00 Test Item Value Reference Range Interpretation [...] I S NOT APPLICABLE FOR DIALYSIS PATIEN STEVE. [id number] 06:44:00 Test Item Value Reference Range Interpretation Comments CORTISOL, TOTAL (BEAKER) (test code 6.2 ug/dL 3.7-19.4 = 2755) CALCIUM, [id number] 06:16:00 Test Item Value Reference Range Interpretation Comments CALCIUM IONIZED (BEAKER) (test 0.93 mmol/L 1.12-1.27 L code = 698) PH, BLOOD (BEAKER) (test code = 7.50 1810) EEG AWAKE AND [id number] 17:34:00Reason for exam:->SyncopeDATE OF EE12-08-2016 DATE OF REPORT: 12-08-2016 ACC: [id number] Start time: 12:49 Stoptime: 13:10 ICD-10: R55 CPT Code: 02957 HISTORY: recurrent syncopal episodes MEDICATIONS THAT COULD AFFECT EEG: TECHNICAL SUMMARY: This is a digital EEG recorded with 32 input channels on a [employer] system and then reviewed with bipolar and referential montages using the modified combinatorial system nomenclature. DESCRIPTION OF RECORD: During the maximally alert state a 9-10 Hz posterior dominant rhythm was seen that was symmetric, reactive to eye opening and well regulated. More anteriorly, low voltage frontocentral beta predominated. Drowsiness was characterized by alpha attenuation and increased frontocentral theta, vertex sharp transients and POSTS. Stage 2 sleep was reached characterizedby symmetric sleep spindles and K-complexes. HV: Hyperventilation was not performed. PHOTIC STIMULATION: Photic Stimulation was not done. IMPRESSION: Normal EEG awake and asleep. Cristina Dent MD Radha rophysiology Fellow PGY5 Jake Fields MD Neurophysiology Attending [...] PLT(BEAKER) (test code = Present 2156) CALCIUM, [id number] 07:03:00 Test Item Value Reference Range Interpretation Comments CALCIUM IONIZED (BEAKER) (test 1.14 mmol/L 1.12-1.27 code = 698) PH, BLOOD (BEAKER) (test code = 7.37 1810) [id number] 07:01:00 Test Item Value Reference Range Interpretation Comments MAGNESIUM (BEAKER) (test code = 2.0 mg/dL 1.6-2.6 627) BASIC METABOLIC [id number] 07:01:00 Test Item Value Reference Range Interpretation [...] PATIEN TS. CBC W/PLT COUNT & AUTO [id number] 06:30:00 Test Item Value Reference Range Interpretation [...] (BEAKER) (test code = 2801) URINALYSIS W/ [id number] 17:47:00 Test Item Value Reference Range Interpretation [...] 517) SOURCE(BEAKER) (test code = Urine, Voided 9420) CT, CAROTID, [id number] 16:48:00FINAL REPORT CTA head and neck with [...] plaque in the common carotid arteries with mildstenosis distally on the left. There is carotid bifurcation and proximal cervical ICA atherosclerosis. There is mild bilateral proximal cervical ICA stenosis, up to 20-30% on the right and 20% on the left by NASCET criteria. No tandem ICA stenoses [...] left and mild to moderate right mid SENIOR SCHEDULER stenoses and mild left intradural vertebral artery stenosis. There is mild carotid siphon atherosclerosis. Otherwise no high grade proximal [place] stenosis or major branch occlusion [...] left and mild to moderate right mid SENIOR SCHEDULER stenoses, and other lesser intracranial atherosclerotic changes as discussed. 4. Nonspecific bilateral ground glasslung opacities, which could reflect edema or atypical pneumonitis. Advise correlation with chest imaging. Signed: Aaron Moulton [facility] Verified Date/Time: 12/07/2016 16:48:08 Reading Location:[address] Neuro Reading [facility] [id number] 16:48:00FINAL REPORT CTA head and neck with [...] plaque in the common carotid arteries with mildstenosis distally on the left. There is carotid bifurcation and proximal cervical ICA atherosclerosis. There is mild bilateral proximal cervical ICA stenosis, up to 20-30% on the right and 20% on the left by NASCET criteria. No tandem ICA stenoses [...] left and mild to moderate right mid SENIOR SCHEDULER stenoses and mild left intradural vertebral artery stenosis. There is mild carotid siphon atherosclerosis. Otherwise no high grade proximal [place] stenosis or major branch occlusion [...] left and mild to moderate right mid SENIOR SCHEDULER stenoses, and other lesser intracranial atherosclerotic changes as discussed. 4. Nonspecific bilateral ground glasslung opacities, which could reflect edema or atypical pneumonitis. Advise correlation with chest imaging. Signed: [facility]tonback[facility] Verified Date/Time: 12/07/2016 16:48:08 Reading Location:[address] Neuro Reading Room TINE KINASE (CK), TOTAL AND [id number] 14:16:00 Test Item Value Reference Range Interpretation Comments CREATINE KINASE TOTAL (BEAKER) 85 U/L 29-200 (test code = 380) CREATINE KINASE-MB (BEAKER) (test 3.5 ng/mL 0.0-6.6 code = 750) CREATINE KINASE-MB INDEX (BEAKER) 4.1 % (test code = 395) CK-MB Reference Range:<6.7 Normal6.7-10.0 Borderline>10.0 AbnormalTROPONIN [id number] 14:16:00 Test Item Value Reference Range Interpretation [...] failure, acidosis, acute neurological disease, and persistent tachyarrhythmia.[id number] 14:09:00 Test Item Value Reference Range Interpretation Comments MAGNESIUM (BEAKER) (test code = 2.1 mg/dL 1.6-2.6 627) BASIC METABOLIC [id number] 14:09:00 Test Item Value Reference Range Interpretation [...] S NOT APPLICABLE FOR DIALYSIS PATIEN TS. [id number] 13:58:00 Test Item Value Reference Range Interpretation Comments PROTIME (BEAKER) (test code = 14.7 seconds 11.7-14.7 759) INR (BEAKER) (test code = 370) 1.2 <=5.9 PARTIAL THROMBOPLASTIN TIME 23.4 seconds 22.5-36.0 (BEAKER) (test code = 760) RECOMMENDED COUMADIN/WARFARIN INR THERAPY RANGESSTANDARD DOSE: 2.0 - 3.0 Includes: PROPHYLAXIS for venous thrombosis, systemic embolization; TREATMENT for venous thrombosis and/or pulmonary embolus.HIGH RISK: Target INR is 2.5-3.5 for patients with mechanical heart valves.CBC W/PLT COUNT & AUTO [id number] 13:52:00 Test Item Value Reference Range Interpretation [...] PERCENT (BEAKER) (test code = 2801) POCT-GLUCOSE [id number] 13:46:00 Test Item Value Reference Range Interpretation Comments POC-GLUCOSE METER 136 mg/dL 70-110 H TESTED AT [facility] 6720 (CIARA) (test code = [place] 1538) [address] CT, BRAIN/STROKE [id number] 13:28:00Reason for exam:->loss of consciousnessFINAL REPORT CT [...] Moul[place] Verified Date/Time: 12/07/2016 13:28:57 Reading Location: [facility] C013V Neuro Reading Room
[2022-04-02 21:45] LABS: Absolute Lymphocytes (CBC) 0.5 K/uL (0.7-4.9); Hematocrit 33.8 % (39.6-49.0); Lymphocytes % 16.4 % (15.3-44.8); MCV 94.5 fL (80-100); MPV 8.2 fL (7.6-11.3); Protime INR 0.97; RBC Red Blood Cell Count 3.57 M/uL (4.33-5.43)
[2022-04-02 22:02] LABS: ALT/SGPT 35 U/L (16-61); AST/SGOT 26 U/L (15-37); Albumin 3.9 g/dL (3.4-5.0); Alkaline Phosphatase 107 U/L (45-117); BUN Blood Urea Nitrogen 9 mg/dL (7-18); Bicarbonate 30 mmol/L (21-32); Bilirubin Total 0.2 mg/dL (0.2-1.0); Glomerular Filtration Rate 100 ml/min (=/>90); Glucose Level 98 mg/dL (74-106); Magnesium 2.2 mg/dL (1.6-2.4); NT PRO-BNP 363 pg/mL (<125); Potassium 4.2 mmol/L (3.5-5.1); Protein, Total 7.5 g/dL (6.4-8.2); Sodium Level 129 mmol/L (136-145); Troponin High Sensitivity 10.9 pg/mL (<58.9)
[2022-04-02 22:17] LABS: Bilirubin Direct < 0.1 mg/dL (0-0.2)
--- NOTE | 2022-04-02 22:49 | RAD REPORT ---
EXAM DESCRIPTION: CT - Head Brain Wo Cont - 04/02/2022 10:40 pm CLINICAL HISTORY: altered mental status Headache, drowsiness COMPARISON: Head Brain Wo Cont dated 04/04/2018; HEAD BRAIN W O CONTRAST dated 11/13/2014 TECHNIQUE: All CT scans are performed using dose optimization technique as appropriate and may inclu de automated exposure control or mA/KV adjustment according to patient size. FINDINGS: No intracranial hemorrhage, hydrocephalus or extra-axial fluid collection.Moderate diffuse brain atrophy is present. Mild periventricular and deep white matter chronic microvascular ischemic changes are seen.No areas of brain edema or evidence of midline shift. The paranasal sinuses and mastoids are clear. The calvarium is intact. Left vertebral atherosclerosis . IMPRESSION: No acute intracranial abnormality.
[2022-04-02] MEDS ORDERED: NA CHLORIDE 0.9% 500 ML ONE (22:54)
[2022-04-02 23:12] LABS: Urine Blood Negative (Negative); Urine Glucose Negative (Negative); Urine Protein Negative (Negative); Urine Specific Gravity 1.015 (1.005-1.030); Urine pH 7.5 (5.0-7.0)
[2022-04-02 23:43] LABS: Urine Bacteria <20 /HPF (<20); Urine RBC <5 /HPF (None Seen)
--- NOTE | 2022-04-02 23:54 | ER ---
Nurse's Notes [facility] Name: Eleuterio Baird Age: 71 yrs Sex: Male : 1950 Arrival Date: 04/02/2022 Time: 18:47 Bed 25 Private MD: Diagnosis: Hyponatremia Presentation: 04/02 19:14 Chief complaint: Spouse and/or significant other states: "We got an alert from the last tw5 was from the lab that is salt was 125 and that he might start hallucinating. He has already been hallucinating.". Coronavirus screen: Vaccine status: Patient reports receiving the 2nd dose of the covid vaccine. x 4. Ebola Screen: Patient negative for fever greater than or equal to 101.5 degrees Fahrenheit, and additional compatible Ebola Virus Disease symptoms Patient denies exposure to infectious person. Patient denies travel to an Ebola-affected area in the 21 days before illness onset. Initial Sepsis Screen: Does the patient meet any 2 criteria? No. Patient's initial sepsis screen is negative. Does the patient have a suspected source of infection? No. Patient's initial sepsis screen is negative. Risk Assessment: Do you want to hurt yourself or someone else? Patient reports no desire to harm self or others. Onset of symptoms is unknown. 19:14 Method Of Arrival: Wheelchair tw5 19:14 Acuity: SALOME 3 tw5 Triage Assessment: 19:16 General: Appears in no apparent distress. Behavior is calm, cooperative, appropriate tw5 for age. Pain: Complains of pain in left cheek and mouth Pain currently is 4 out of 10 on a pain scale. Historical: - Allergies: 19:16 Amantadine; tw5 19:16 Flagyl; tw5 - PMHx: 19:16 MS; MD; Seizure; HTN; tw5 - Immunization history:: Flu vaccine is up to date. - Social history:: Smoking status: Patient/guardian denies using tobacco, but has a distant history of tobacco abuse. Screenin:[facility] ED Fall Risk Assessment (Adult) History of falling in the last 3 months, mb9 including since admission No falls in past 3 months (0 pts) Confusion or Disorientation No (0 pts) Intoxicated or Sedated No (0 pts) Impaired Gait No (0 pts) Mobility Assist Device Used No (0 pt) Altered Elimination No (0 pt) Score/Fall Risk Level 0 - 2 = Low Risk Oriented to surroundings, Maintained a safe environment, Educated pt \\T\\ family on fall prevention, incl call for assistance when getting out of bed. Abuse screen: Denies threats or abuse. Nutritional screening: No deficits noted. Tuberculosis screening: No symptoms or risk factors identified. Assessment: 21:03 Reassessment: pt brought back to ER room. mb9 21:10 General: Appears in no apparent distress. comfortable, Behavior is calm, cooperative, mb9 appropriate for age. Pain: Complains of pain in face and mouth and left cheek Pain does not radiate. Pain currently is 5 out of 10 on a pain scale. Quality of pain is described as throbbing, Aggravated by eating, drinking. 21:10 Neuro: Gonzalez Agitation-Sedation Scale (RASS): 0 - Alert and Calm Level of mb9 Consciousness is awake, alert, obeys commands, Oriented to person, place, time, situation, Appropriate for age Denies weakness blurred vision dizziness, headache. Cardiovascular: Heart tones S1 S2 present Rhythm is regular. Respiratory: Airway is patent Respiratory effort is even, unlabored, Respiratory pattern is regular, symmetrical, Breath sounds are clear bilaterally. GI: Abdomen is flat, non-distended, Bowel sounds present X 4 quads. Abd is soft and non tender X 4 quads. : No signs and/or symptoms were reported regarding the genitourinary system. EENT: No signs and/or symptoms were reported regarding the EENT system. Derm: Skin is pink, warm \\T\\ dry. Musculoskeletal: Range of motion: intact in all extremities. 22:37 Reassessment: pt taken to CT via stretcher. mb9 23:28 Reassessment: No changes from previously documented assessment. pt currently sleeping. mb9 Airway is patent, respirations are even and unlabored. Rhythm is regular. Skin is warm, dry, and intact. at bedside. Vital Signs: 19:14 BP 144 / 66; Pulse 57; Resp 18; Temp 98.8; Pulse Ox 99% on R/A; Weight 78.02 kg; Height tw5 5 ft. 7 in. (170.18 cm); Pain 0/10; 21:54 BP 126 / 57; Pulse 62; Resp 18; Pulse Ox 100% on R/A; mb9 23:29 BP 138 / 58; Pulse 62; Resp 14; Pulse Ox 99% on R/A; mb9 04/03 00:03 BP 125 / 54; Pulse 66; Resp 18; Pulse Ox 100% on R/A; mb9 04/02 19:14 Body Mass Index 26.94 (78.02 kg, 170.18 cm) tw5 ED Course: 04/02 18:47 Patient arrived in ED. rg4 18:48 Timothy Xiong PA is PHCP. cp 18:48 Wallace Rios DO is Attending Physician. cp 19:16 Triage completed. tw5 19:16 Arm band placed on right wrist. tw5 20:06 Patient notified of wait time. tw5 20:06 Placed in gown. Bed in low position. Call light in reach. Side rails up X 1. mb9 21:03 Fina Vogel, HARPER is Primary Nurse. mb9 21:19 EKG done, by ED staff, reviewed by Timothy NEWBY. mb9 21:35 Inserted saline lock: 20 gauge in right antecubital area, using aseptic technique. zm Blood collected. 21:35 Basic Metabolic Panel Sent. zm 21:35 CBC with Diff Sent. zm 21:35 LFT's Sent. zm 21:35 Magnesium Sent. zm 21:35 NT PRO-BNP Sent. zm 21:35 PT-INR Sent. zm 21:35 Troponin HS Sent. zm 21:56 No provider procedures requiring assistance completed. mb9 22:42 CT Head Brain wo Cont In Process Unspecified. EDMS 23:24 Urine Microscopic Only Sent. mb9 04/03 00:03 IV discontinued, intact, bleeding controlled, No redness/swelling at site. Pressure mb9 dressing applied. Administered Medications: 04/02 22:51 Drug: NS 0.9% 500 ml Route: IV; Rate: 500 ml/hr; Site: left antecubital; mb9 Medication: 21:56 VIS not applicable for this client. mb9 Output: 23:29 Urine: 900ml (Straight Cath); Total: 900ml. mb9 Outcome: 23:53 Discharge ordered by . cp 04/03 00:03 Discharged to home via wheelchair. mb9 Condition: stable Discharge instructions given to patient, Instructed on discharge instructions, follow up and referral plans. Demonstrated understanding of instructions, follow-up care. 00:03 Patient left the ED. mb9 Signatures: Dispatcher [employer] EDMS Timothy Xiong PA PA cp Garcia, Rubi rg4 Anjali Chowdhury tw5 Danya Acuña, Fina Vieira, RN RN mb9
--- NOTE | 2022-04-02 23:54 | EDPHYS ---
Physician Documentation [facility] Name: Eleuterio Baird Age: 71 yrs Sex: Male : 1950 Arrival Date: 04/02/2022 Time: 18:47 Bed 25 Private MD: ED Physician Wallace Rios HPI: 04/02 19:30 This 71 yrs old Male presents to ER via Wheelchair with complaints of Abnormal Lab cp Results. 19:30 Patient accompanied to ED by who reports recent results of blood work showed low cp sodium of 125. was concerned patient could have seizure. Historical: - Allergies: 19:16 Amantadine; tw5 19:16 Flagyl; tw5 - PMHx: 19:16 MS; [place]; Seizure; HTN; tw5 - Immunization history:: Flu vaccine is up to date. - Social history:: Smoking status: Patient/guardian denies using tobacco, but has a distant history of tobacco abuse. ROS: 19:33 Constitutional: Negative for body aches, chills, fever, poor PO intake. cp 19:33 Eyes: Negative for injury, pain, redness, and discharge. cp 19:33 ENT: Negative for drainage from ear(s), ear pain, sore throat, difficulty swallowing, difficulty handling secretions. 19:33 Cardiovascular: Negative for chest pain, palpitations. 19:33 Respiratory: Negative for cough, shortness of breath, wheezing. 19:33 Abdomen/GI: Negative for abdominal pain, vomiting, diarrhea, constipation. 19:33 Neuro: Negative for altered mental status, dizziness, headache, numbness, syncope, weakness. 19:33 All other systems are negative. Exam: 19:35 Constitutional: The patient appears in no acute distress, alert, awake, cp non-diaphoretic, non-toxic, well developed, well nourished. 19:35 Head/Face: Normocephalic, atraumatic. cp 19:35 Eyes: Periorbital structures: appear normal, Pupils: equal, round, and reactive to light and accomodation, Extraocular movements: intact throughout, Conjunctiva: normal, no exudate, no injection, Sclera: no appreciated abnormality, Lids and lashes: appear normal, bilaterally. 19:35 ENT: External ear(s): are unremarkable, Nose: is normal, Mouth: Lips: moist, Oral mucosa: moist, Posterior pharynx: Airway: no evidence of obstruction, patent, swelling, is not appreciated, erythema, is not appreciated, exudate, is not appreciated. 19:35 Neck: ROM/movement: is normal, is supple, without pain, no range of motions limitations. 19:35 Chest/axilla: Inspection: normal. 19:35 Cardiovascular: Rate: bradycardic, Rhythm: regular, Edema: ankle edema, that is mild, JVD: is not appreciated. 19:35 Respiratory: the patient does not display signs of respiratory distress, Respirations: normal, no use of accessory muscles, no retractions, labored breathing, is not present, Breath sounds: are clear throughout, no decreased breath sounds, no stridor, no wheezing. 19:35 Abdomen/GI: Inspection: abdomen appears normal, Palpation: abdomen is soft and non-tender, in all quadrants. 19:35 Neuro: Orientation: to person, place \T\ time. Mentation: is normal, Motor: moves all fours, strength is normal, Sensation: is normal. 21:20 ECG was reviewed by the Attending Physician. cp Vital Signs: 19:14 BP 144 / 66; Pulse 57; Resp 18; Temp 98.8; Pulse Ox 99% on R/A; Weight 78.02 kg; Height tw5 5 ft. 7 in. (170.18 cm); Pain 0/10; 21:54 BP 126 / 57; Pulse 62; Resp 18; Pulse Ox 100% on R/A; mb9 23:29 BP 138 / 58; Pulse 62; Resp 14; Pulse Ox 99% on R/A; mb9 04/03 00:03 BP 125 / 54; Pulse 66; Resp 18; Pulse Ox 100% on R/A; mb9 04/02 19:14 Body Mass Index 26.94 (78.02 kg, 170.18 cm) tw5 MDM: 04/02 19:21 Patient medically screened. cp 23:52 Data reviewed: vital signs, nurses notes, lab test result(s), EKG, radiologic studies. cp 23:52 Differential Diagnosis sepsis, flu, electrolyte abnormality, cardiac arrythmia, uti. cp Test interpretation: by ED physician or midlevel provider: ECG, plain radiologic studies. Counseling: I had a detailed discussion with the patient and/or guardian regarding: the historical points, exam findings, and any diagnostic results supporting the discharge/admit diagnosis, lab results, radiology results, to return to the emergency department if symptoms worsen or persist or if there are any questions or concerns that arise at home. 04/02 19:22 Order name: Basic Metabolic Panel; Complete Time: 22:24 cp 04/02 22:24 Interpretation: Normal except: NA 129; CL 93; CRE 0.65. cp 04/02 19:22 Order name: CBC with Diff; Complete Time: 22:24 cp 04/02 22:25 Interpretation: Normal except: WBC 3.30; RBC 3.57; HGB 11.6; HCT 33.8; MN% 18.6; LYMA cp 0.5. 04/02 19:22 Order name: LFT's; Complete Time: 22:24 cp 04/02 22:47 Interpretation: Normal except: GLOB 3.6. cp 04/02 19:22 Order name: Magnesium; Complete Time: 22:24 cp 04/02 19:22 Order name: NT PRO-BNP; Complete Time: 22:24 cp 04/02 19:22 Order name: PT-INR; Complete Time: 22:24 cp 04/02 19:22 Order name: Troponin HS; Complete Time: 22:24 cp 04/02 22:47 Interpretation: Reviewed. cp 04/02 19:22 Order name: EKG; Complete Time: 19:23 cp 04/02 19:22 Order name: Cardiac monitoring; Complete Time: 21:03 cp 04/02 19:22 Order name: EKG - Nurse/Tech; Complete Time: 21:35 cp 04/02 21:53 Order name: CT Head Brain wo Cont; Complete Time: 22:52 cp 04/02 22:25 Order name: Urine Microscopic Only; Complete Time: 23:52 cp 04/02 23:13 Order name: Urine Dipstick-Ancillary; Complete Time: 23:39 EDMS 04/02 19:22 Order name: IV Saline Lock; Complete Time: 21:35 cp 04/02 19:22 Order name: Labs collected and sent; Complete Time: 21:35 cp 04/02 19:22 Order name: O2 Per Protocol; Complete Time: 21:03 cp 04/02 19:22 Order name: O2 Sat Monitoring; Complete Time: 21:03 cp 04/02 22:25 Order name: Urine Dipstick-Ancillary (obtain specimen); Complete Time: 23:25 cp EC:20 Rate is 58 beats/min. Rhythm is regular. DC interval is prolonged at 230 msec. QRS cp interval is normal. QT interval is normal. T waves are Inverted in lead aVR. Interpreted by me. Reviewed by me. Administered Medications: 22:51 Drug: NS 0.9% 500 ml Route: IV; Rate: 500 ml/hr; Site: left antecubital; mb9 Disposition: 04/03 08:51 Co-signature as Attending Physician, Wallace Rios DO I was immediately available on-site ms3 in the Emergency Department for consultation in the care of the patient. Disposition Summary: 04/02/22 23:53 Discharge Ordered Location: Home cp Problem: new cp Symptoms: have improved cp Condition: Stable cp Diagnosis - Hyponatremia cp Followup: cp - With: Private Physician - When: 2 - 3 days - Reason: Recheck today's complaints Discharge Instructions: - Discharge Summary Sheet cp - Hyponatremia cp Forms: - Medication Reconciliation Form cp - Thank You Letter cp - Antibiotic Education cp - Prescription Opioid Use cp Signatures: Dispatcher [employer] EDMS Timothy Xiong PA PA cp Wallace Rios DO DO ms3 Anjali Chowdhury tw5 [employer] MD MD sd2 Fina Vogel RN RN mb9
[2022-04-03 00:18] VITALS: TEMP 98.8
[2022-04-03 00:22] VITALS: BP 125/54; O2SAT 100
--- NOTE | 2022-04-04 17:41 | EKG ---
Test Date: 2022-04-02 Test Time: 21:15:44 Soloist Dancer: MB MEASUREMENT RESULTS: Intervals: Rate: 58 WV: 230 QRSD: 96 QT: 410 QTc: 402 Lee: P: 54 WV: 230 QRS: 10 T: 34 INTERPRETIVE STATEMENTS: Sinus bradycardia with sinus arrhythmia with 1st degree AV block Minimal voltage criteria for LVH, may be normal variant Borderline ECG Compared to ECG 10/15/2021 09:39:12 No significant changes Electronically Signed On 04-04-22 17:40:03 FASHION CONSULTANT by Brown Garzon
== END 2022-04-03 00:03 | disposition home or self-care (01) ==
LOC: ER 18:40
DX: E87.1 Hypo-osmolality and hyponatremia (principal); I10 Essential (primary) hypertension; Z88.8 Allergy status to other drugs, medicaments and biological substances
CPT/HCPCS: 93005; 85025; 80048; 36415; 83735; 85610; 80076; 84484; 83880; 70450; 99284; J7040; 81003; 81015

== ENCOUNTER 2022-10-12 11:33 | Emergency (ER) | payer OTHER, MEDICARE ==
[2011-08-04 13:12] VITALS: BP 140/69
[2022-10-12] MEDS ORDERED: NA CHLORIDE 0.9% 1,000 ML ONE (12:18)
--- OUTSIDE RECORDS SUMMARY | 2022-10-12 18:03 | XMS REPORT | Continuity of Care Document ---
:1950 Author Organization [facility] t Address [address] [place] [address] [address] [place] [address] Care Team Providers Name Role Phone Asked, No Pcp Primary Care Physician Unavailable Reynold Curtis Attending Clinician Unavailable DMITRIY ASHTON Attending Clinician Unavailable Rehab, [facility] Cardiac Attending Clinician Unavailable Dmitriy Ashton MD Attending Clinician Doctor Unassigned, [place] Attending Clinician Unavailable KARIN Attending Clinician Unavailable SHERLYN SINGER Attending Clinician Unavailable Sherlyn Singer MD Attending Clinician Unknown, Attending Attending Clinician Unavailable UNKNOWN, ATTENDING Attending Clinician Unavailable KENNY DOLAN Attending Clinician Unavailable Quin Norton Attending Clinician QUIN DELUNA Attending Clinician Unavailable Liz Rangel Attending Clinician JORDAN TY Attending Clinician Unavailable Jordan Allen Attending Clinician LIZ WONG Attending Clinician Unavailable Lolly Jara RN Attending Clinician Unavailable Only, Ang Db Test Attending Clinician Unavailable Therapy, [facility] Covid Infusion Attending Clinician Unavailable Bjorn COBURN, Michael Tatum Attending Clinician MICHAEL MILAN Attending Clinician Unavailable MARISELA HOLCOMB Attending Clinician Unavailable Marisela Barrera Attending Clinician Mikki SALEEM, Ni Deleon Attending Clinician Unavailable Ferdinand Gomez DO Attending Clinician Tamiko COBURN, Issac Cohen Attending Clinician [phone] JOE MILES Attending Clinician Unavailable KARUNA KIRKPATRICK Attending Clinician Unavailable SHEMAR_MENA_DARIEN Admitting Clinician Unavailable SAAD GOMES Admitting Clinician Unavailable TATE FERRELL Admitting Clinician Unavailable [...] Coronary Disease Active [facility] artery artery 4-06 [facility] disease disease 00:00: Hospita involving involving 00 l torres martinez torres martinez coronary coronary artery of artery of torres martinez torres martinez 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 pectoris pectoris Stented Stented Disease Active [facility] coronary coronary -06 st artery artery 00:00: Hospita 00 l Coronary Coronary Disease Active [facility] di artery artery 4-06 st disease disease 00:00: Hospita involving involving 00 l torres martinez torres martinez coronary coronary artery of artery of torres martinez torres martinez 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 Recurre [facility]subarachn nce 9-14 Linda kes oid oid 00:00: Medical hemorrhage hemorrhage 00 Ce nter ) ) Vasovagal Vasovagal Disease Active [facility] Subarachno Subarachno Disease Active M ethodi id bleed id bleed 10-31 00:00: Hospita 00 l Syncope Syncope Disease Active [facility] 00:00: Hospita 00 l Hypoxia Hypoxia Disease Active [facility] 10-10 00:00: Hospita 00 l No known No known Disease Unive rs active active ity of problems problems [facility] Allergies, Adverse Reactions, Alerts Allergy Allergy Status Severity Reaction(s) Onset Inactive Treating Comm ents Source Name Type Date Date Clinician AMANTADI DRUG Active Unknown-Cmnt Un chen NE INGREDI 09-04 ity of 00:00: [place] 00 [facility] METRONID DRUG Active Unknown-Cmnt Un chen AZOLE INGREDI 09-04 ity of 00:00: [place] 00 [facility] Amantadi Propensi Active Unknown - Uni vers ne ty to See comments 09-04 ity of adverse 00:00: [place] reaction 00 Medical Branch Metronid Propensi Active Unknown - Uni [...] seizure M ethodi ne ty to Comments) 7[address] st adverse 00:00: Hospita reaction 00 l s to drug Metronid Propensi Active Other (See hallucina [facility] azole ty to Comments) 7 st adverse 00:00: Hospita reaction 00 l s to drug NO KNOWN Drug Active Univers ALLERGIE Class ity of S [facility] Social History Social Habit Start Date Stop Date Quantity Comments Source Gender identity [facility] Sexual orientation [facility] History of tobacco Current smoker [facility] Exposure to 2022-08-03 2022-08-13 Not sure [facility]-CoV-2 (event) 00:00:00 09:45:00 [facility] History of Social 2022-06-01 2022-06-[address] function 00:00:00 00:00:00 Hospital Tobacco use and 2022-01-23 2022-01-23 Smokeless Universit y of exposure 00:00:00 00:00:00 tobacco non-user [facility] Alcohol intake 2016-12-07 2016-12-[address] [facility] [address] [facility] 00:00:00 00:00:00 non-drinker of Medical nter alcohol (finding) Tobacco Comment 2015-10-11 2015-10-[address] 00:00:00 00:00:00 since 1982 Hospital Alcohol Comment 2015-10-11 2015-10-11 very seldom [facility] t 00:00:00 00:00:00 Hospital Sex Ass[birth year] At [birth year] [facility] Grier kes 00:00:00 [facility]00 [facility] Smoking Status Start Date Stop Date Source Unknown if ever smoked [facility] y of [facility] Never smoked tobacco [facility] Ex-smoker 2017-07-02 00:00:00 2017-07-02 00:00:00 [facility] t [facility] Medications Ordered Filled Start Stop Current Ordering Indication Dosage Frequency Signature Comments Components Source Medication Medication Date Date Medication? Clinician (SIG) Name Name simvastatin 2022- No 80mg Take 1 Uni vers 80 mg 07-05-09 tablet by ity of tablet 15:28: 00:00 mouth. [place] 30 :00 [facility] simvastatin 2022-0 2022- No 80mg Take 1 Uni vers 80 mg 07-05-09 tablet by ity of tablet 15:28: 00:00 mouth. [place] 30 :00 [facility] Lysine 500 Yes Take by Univ ers mg Tab 4-09 mouth. ity of 15:27: [address] metoprolol Yes 25mg Take 1 Unive rs tartrate 25 4-09 tablet by ity of mg tablet 15:27: mouth. [address] Lysine 500 Yes Take by Univ ers mg Tab 4-09 mouth. ity of 15:27: [address] metoprolol 2023-0 Yes 25mg Take 1 Unive rs tartrate 25 4-09 tablet by ity of mg tablet 15:27: mouth. [address] Lysine 500 Yes Take by Univ ers mg Tab 4-09 mouth. ity of 15:27: [address] metoprolol 2022-0 Yes 25mg Take 1 Unive rs tartrate 25 4-09 tablet by ity of mg tablet 15:27: mouth. [address] Lysine 500 Yes Take by Univ ers mg Tab 4-09 mouth. ity of 15:27: [address] metoprolol 0 Yes 25mg Take 1 Unive rs tartrate 25 4-09 tablet by ity of mg tablet 15:27: mouth. [address] Lysine 500 Yes Take by Univ ers mg Tab 4-09 mouth. ity of 15:27: [address] metoprolol Yes 25mg Take 1 Unive rs tartrate 25 4-09 tablet by ity of mg tablet 15:27: mouth. [address] Lysine 500 Yes Take by Univ ers mg Tab 4-09 mouth. ity of 15:27: [address] metoprolol Yes 25mg Take 1 Unive rs tartrate 25 4-09 tablet by ity of mg tablet 15:27: mouth. [address] Lysine 500 Yes Take by Univ ers mg Tab 4-09 mouth. ity of 15:27: [address] metoprolol 0 Yes 25mg Take 1 Unive rs tartrate 25 4-09 tablet by ity of mg tablet 15:27: mouth. [address] Lysine 500 Yes Take by Univ ers mg Tab 4-09 mouth. ity of 15:27: [address] metoprolol 2022-0 Yes 25mg Take 1 Unive rs tartrate 25 4-09 tablet by ity of mg tablet 15:27: mouth. [address] Lysine 500 0 Yes Take by Univ ers mg Tab 4-09 mouth. ity of 15:27: [address] metoprolol 2022-0 Yes 25mg Take 1 Unive rs tartrate 25 4-09 tablet by ity of mg tablet 15:27: mouth. [address] Lysine 500 Yes Take by Univ ers mg Tab 4-09 mouth. ity of 15:27: [address] metoprolol 2022-0 Yes 25mg Take 1 Unive rs tartrate 25 4-09 tablet by ity of mg tablet 15:27: mouth. [address] Lysine 500 0 Yes Take by Univ ers mg Tab 4-09 mouth. ity of 15:27: [address] metoprolol 2022-0 Yes 25mg Take 1 Unive rs tartrate 25 4-09 tablet by ity of mg tablet 15:27: mouth. [address] Lysine 500 0 Yes Take by Univ ers mg Tab 4-09 mouth. ity of 15:27: [address] metoprolol 0 Yes 25mg Take 1 Unive rs tartrate 25 4-09 tablet by ity of mg tablet 15:27: mouth. [address] Lysine 500 Yes Take by Univ ers mg Tab 4-09 mouth. ity of 15:27: [address] metoprolol 0 Yes 25mg Take 1 Unive rs tartrate 25 4-09 tablet by ity of mg tablet 15:27: mouth. [address] Lysine 500 Yes Take by Univ ers mg Tab 4-09 mouth. ity of 15:27: [address] metoprolol 0 Yes 25mg Take 1 Unive rs tartrate 25 4-09 tablet by ity of mg tablet 15:27: mouth. [address] Lysine 500 Yes Take by Univ ers mg Tab 4-09 mouth. ity of 15:27: [address] metoprolol 0 Yes 25mg Take 1 Unive rs tartrate 25 4-09 tablet by ity of mg tablet 15:27: mouth. [address] Lysine 500 0 Yes Take by Univ ers mg Tab 4-09 mouth. ity of 15:27: [address] metoprolol 2022-0 Yes 25mg Take 1 Unive rs tartrate 25 4-09 tablet by ity of mg tablet 15:27: mouth. [address] Lysine 500 0 Yes Take by Univ ers mg Tab 4-09 mouth. ity of 15:27: [address] metoprolol 0 Yes 25mg Take 1 Unive rs tartrate 25 4-09 tablet by ity of mg tablet 15:27: mouth. [address] Lysine 500 Yes Take by Univ ers mg Tab 4-09 mouth. ity of 15:27: [address] metoprolol 0 Yes 25mg Take 1 Unive rs tartrate 25 4-09 tablet by ity of mg tablet 15:27: mouth. [address] Lysine 500 Yes Take by Univ ers mg Tab 4-09 mouth. ity of 15:27: [address] metoprolol Yes 25mg Take 1 Unive rs tartrate 25 4-09 tablet by ity of mg tablet 15:27: mouth. [address] Lysine 500 Yes Take by Univ ers mg Tab 4-09 mouth. ity of 15:27: [address] metoprolol Yes 25mg Take 1 Unive rs tartrate 25 4-09 tablet by ity of mg tablet 15:27: mouth. [address] Lysine 500 Yes Take by Univ ers mg Tab 4-09 mouth. ity of 15:27: [address] metoprolol Yes 25mg Take 1 Unive rs tartrate 25 4-09 tablet by ity of mg tablet 15:27: mouth. [address] Lysine 500 Yes Take by Univ ers mg Tab 4-09 mouth. ity of 15:27: [address] metoprolol 0 Yes 25mg Take 1 Unive rs tartrate 25 4-09 tablet by ity of mg tablet 15:27: mouth. [address] Lysine 500 Yes Take by Univ ers mg Tab 4-09 mouth. ity of 15:27: [address] metoprolol 0 Yes 25mg Take 1 Unive rs tartrate 25 4-09 tablet by ity of mg tablet 15:27: mouth. [address] Lysine 500 0 Yes Take by Univ ers mg Tab 4-09 mouth. ity of 15:27: [address] metoprolol 0 Yes 25mg Take 1 Unive rs tartrate 25 4-09 tablet by ity of mg tablet 15:27: mouth. [address] Lysine 500 0 Yes Take by Univ ers mg Tab 4-09 mouth. ity of 15:27: [address] metoprolol 2022-0 Yes 25mg Take 1 Unive rs tartrate 25 4-09 tablet by ity of mg tablet 15:27: mouth. [address] Lysine 500 0 Yes Take by Univ ers mg Tab 4-09 mouth. ity of 15:27: [address] metoprolol 2022-0 Yes 25mg Take 1 Unive rs tartrate 25 4-09 tablet by ity of mg tablet 15:27: mouth. [address] Lysine 500 0 Yes Take by Univ ers mg Tab 4-09 mouth. ity of 15:27: [address] metoprolol 0 Yes 25mg Take 1 Unive rs tartrate 25 4-09 tablet by ity of mg tablet 15:27: mouth. [address] Lysine 500 Yes Take by Univ ers mg Tab 4-09 mouth. ity of 15:27: [address] metoprolol 2022-0 Yes 25mg Take 1 Unive rs tartrate 25 4-09 tablet by ity of mg tablet 15:27: mouth. [address] Lysine 500 Yes Take by Univ ers mg Tab 4-09 mouth. ity of 15:27: [address] metoprolol 2022-0 Yes 25mg Take 1 Unive rs tartrate 25 4-09 tablet by ity of mg tablet 15:27: mouth. [address] Lysine 500 Yes Take by Univ ers mg Tab 4-09 mouth. ity of 15:27: [address] metoprolol 2022-0 Yes 25mg Take 1 Unive rs tartrate 25 4-09 tablet by ity of mg tablet 15:27: mouth. [address] Lysine 500 0 Yes Take by Univ ers mg Tab 4-09 mouth. ity of 15:27: [address] metoprolol 2022-0 Yes 25mg Take 1 Unive rs tartrate 25 4-09 tablet by ity of mg tablet 15:27: mouth. [address] Lysine 500 0 Yes Take by Univ ers mg Tab 4-09 mouth. ity of 15:27: [address] metoprolol 0 Yes 25mg Take 1 Unive rs tartrate 25 4-09 tablet by ity of mg tablet 15:27: mouth. [address] Lysine 500 0 Yes Take by Univ ers mg Tab 4-09 mouth. ity of 15:27: [address] metoprolol 2022-0 Yes 25mg Take 1 Unive rs tartrate 25 4-09 tablet by ity of mg tablet 15:27: mouth. [address] Lysine 500 0 Yes Take by Univ ers mg Tab 4-09 mouth. ity of 15:27: [address] metoprolol 0 Yes 25mg Take 1 Unive rs tartrate 25 4-09 tablet by ity of mg tablet 15:27: mouth. [address] Lysine 500 0 Yes Take by Univ ers mg Tab 4-09 mouth. ity of 15:27: [address] metoprolol 0 Yes 25mg Take 1 Unive rs tartrate 25 4-09 tablet by ity of mg tablet 15:27: mouth. [address] Lysine 500 Yes Take by Univ ers mg Tab 4-09 mouth. ity of 15:27: [address] metoprolol 0 Yes 25mg Take 1 Unive rs tartrate 25 4-09 tablet by ity of mg tablet 15:27: mouth. [address] Lysine 500 Yes Take by Univ ers mg Tab 4-09 mouth. ity of 15:27: [address] metoprolol 2022-0 Yes 25mg Take 1 Unive rs tartrate 25 4-09 tablet by ity of mg tablet 15:27: mouth. [address] Lysine 500 0 Yes Take by Univ ers mg Tab 4-09 mouth. ity of 15:27: [address] metoprolol 2022-0 Yes 25mg Take 1 Unive rs tartrate 25 4-09 tablet by ity of mg tablet 15:27: mouth. [address] Lysine 500 0 Yes Take by Univ ers mg Tab 4-09 mouth. ity of 15:27: [address] metoprolol 2022-0 Yes 25mg Take 1 Unive rs tartrate 25 4-09 tablet by ity of mg tablet 15:27: mouth. [address] Lysine 500 0 Yes Take by Univ ers mg Tab 4-09 mouth. ity of 15:27: [address] metoprolol 2022-0 Yes 25mg Take 1 Unive rs tartrate 25 4-09 tablet by ity of mg tablet 15:27: mouth. [address] Lysine 500 0 Yes Take by Univ ers mg Tab 4-09 mouth. ity of 15:27: [address] metoprolol 2022-0 Yes 25mg Take 1 Unive rs tartrate 25 4-09 tablet by ity of mg tablet 15:27: mouth. [address] Lysine 500 0 Yes Take by Univ ers mg Tab 4-09 mouth. ity of 15:27: [address] metoprolol 2022-0 Yes 25mg Take 1 Unive rs tartrate 25 4-09 tablet by ity of mg tablet 15:27: mouth. [address] Lysine 500 Yes Take by Univ ers mg Tab 4-09 mouth. ity of 15:27: [address] metoprolol 2022-0 Yes 25mg Take 1 Unive rs tartrate 25 4-09 tablet by ity of mg tablet 15:27: mouth. [address] Lysine 500 Yes Take by Univ ers mg Tab 4-09 mouth. ity of 15:27: [address] metoprolol 0 Yes 25mg Take 1 Unive rs tartrate 25 4-09 tablet by ity of mg tablet 15:27: mouth. [address] Lysine 500 0 Yes Take by Univ ers mg Tab 4-09 mouth. ity of 15:27: [address] metoprolol 2022-0 Yes 25mg Take 1 Unive rs tartrate 25 4-09 tablet by ity of mg tablet 15:27: mouth. [address] Lysine 500 0 Yes Take by Univ ers mg Tab 4-09 mouth. ity of 15:27: [address] metoprolol 2022-0 Yes 25mg Take 1 Unive rs tartrate 25 4-09 tablet by ity of mg tablet 15:27: mouth. [address] gabapentin 2022-0 Yes 600mg Take 1 Univ ers 600 mg 4-09 tablet by ity of tablet 15:12: mouth. [address] Branch gabapentin 2023-0 Yes 600mg Take 1 Univ ers 600 mg 4-09 tablet by ity of tablet 15:12: mouth. [address] Branch gabapentin 2023-0 Yes 600mg Take 1 Univ ers 600 mg 4-09 tablet by ity of tablet 15:12: mouth. [address] gabapentin 2023-0 Yes 600mg Take 1 Univ ers 600 mg 4-09 tablet by ity of tablet 15:12: mouth. [address] Branch gabapentin 2023-0 Yes 600mg Take 1 Univ ers 600 mg 4-09 tablet by ity of tablet 15:12: mouth. [address] Branch gabapentin 2023-0 Yes 600mg Take 1 Univ ers 600 mg 4-09 tablet by ity of tablet 15:12: mouth. [address] Branch gabapentin 2023-0 Yes 600mg Take 1 Univ ers 600 mg 4-09 tablet by ity of tablet 15:12: mouth. [address] gabapentin 2023-0 Yes 600mg Take 1 Univ ers 600 mg 4-09 tablet by ity of tablet 15:12: mouth. [address] Branch gabapentin 2023-0 Yes 600mg Take 1 Univ ers 600 mg 4-09 tablet by ity of tablet 15:12: mouth. [address] gabapentin 2023-0 Yes 600mg Take 1 Univ ers 600 mg 4-09 tablet by ity of tablet 15:12: mouth. [address] gabapentin 2023-0 Yes 600mg Take 1 Univ ers 600 mg 4-09 tablet by ity of tablet 15:12: mouth. [address] gabapentin 2023-0 Yes 600mg Take 1 Univ ers 600 mg 4-09 tablet by ity of tablet 15:12: mouth. [address] Branch gabapentin 2023-0 Yes 600mg Take 1 Univ ers 600 mg 4-09 tablet by ity of tablet 15:12: mouth. [address] Branch gabapentin 2023-0 Yes 600mg Take 1 Univ ers 600 mg 4-09 tablet by ity of tablet 15:12: mouth. [address] gabapentin 2023-0 Yes 600mg Take 1 Univ ers 600 mg 4-09 tablet by ity of tablet 15:12: mouth. [address] gabapentin 2023-0 Yes 600mg Take 1 Univ ers 600 mg 4-09 tablet by ity of tablet 15:12: mouth. [address] gabapentin 2023-0 Yes 600mg Take 1 Univ ers 600 mg 4-09 tablet by ity of tablet 15:12: mouth. [address] Branch gabapentin 2023-0 Yes 600mg Take 1 Univ ers 600 mg 4-09 tablet by ity of tablet 15:12: mouth. [address] gabapentin 2023-0 Yes 600mg Take 1 Univ ers 600 mg 4-09 tablet by ity of tablet 15:12: mouth. [address] Branch gabapentin 2023-0 Yes 600mg Take 1 Univ ers 600 mg 4-09 tablet by ity of tablet 15:12: mouth. [address] Branch gabapentin 2023-0 Yes 600mg Take 1 Univ ers 600 mg 4-09 tablet by ity of tablet 15:12: mouth. [address] gabapentin 2023-0 Yes 600mg Take 1 Univ ers 600 mg 4-09 tablet by ity of tablet 15:12: mouth. [address] gabapentin 2023-0 Yes 600mg Take 1 Univ ers 600 mg 4-09 tablet by ity of tablet 15:12: mouth. [address] Branch gabapentin 2023-0 Yes 600mg Take 1 Univ ers 600 mg 4-09 tablet by ity of tablet 15:12: mouth. [address] gabapentin 2023-0 Yes 600mg Take 1 Univ ers 600 mg 4-09 tablet by ity of tablet 15:12: mouth. [address] gabapentin 2023-0 Yes 600mg Take 1 Univ ers 600 mg 4-09 tablet by ity of tablet 15:12: mouth. [address] gabapentin 2023-0 Yes 600mg Take 1 Univ ers 600 mg 4-09 tablet by ity of tablet 15:12: mouth. [address] Branch gabapentin 2023-0 Yes 600mg Take 1 Univ ers 600 mg 4-09 tablet by ity of tablet 15:12: mouth. [address] gabapentin 2023-0 Yes 600mg Take 1 Univ ers 600 mg 4-09 tablet by ity of tablet 15:12: mouth. [address] gabapentin 2023-0 Yes 600mg Take 1 Univ ers 600 mg 4-09 tablet by ity of tablet 15:12: mouth. [address] gabapentin 2023-0 Yes 600mg Take 1 Univ ers 600 mg 4-09 tablet by ity of tablet 15:12: mouth. [address] gabapentin 2023-0 Yes 600mg Take 1 Univ ers 600 mg 4-09 tablet by ity of tablet 15:12: mouth. [address] gabapentin 2023-0 Yes 600mg Take 1 Univ ers 600 mg 4-09 tablet by ity of tablet 15:12: mouth. [address] gabapentin 2023-0 Yes 600mg Take 1 Univ ers 600 mg 4-09 tablet by ity of tablet 15:12: mouth. [address] gabapentin 2023-0 Yes 600mg Take 1 Univ ers 600 mg 4-09 tablet by ity of tablet 15:12: mouth. [address] gabapentin 2023-0 Yes 600mg Take 1 Univ ers 600 mg 4-09 tablet by ity of tablet 15:12: mouth. [address] gabapentin 2023-0 Yes 600mg Take 1 Univ ers 600 mg 4-09 tablet by ity of tablet 15:12: mouth. [address] gabapentin 2023-0 Yes 600mg Take 1 Univ ers 600 mg 4-09 tablet by ity of tablet 15:12: mouth. [address] gabapentin 2023-0 Yes 600mg Take 1 Univ ers 600 mg 4-09 tablet by ity of tablet 15:12: mouth. [address] gabapentin 2023-0 Yes 600mg Take 1 Univ ers 600 mg 4-09 tablet by ity of tablet 15:12: mouth. [address] gabapentin 2023-0 Yes 600mg Take 1 Univ ers 600 mg 4-09 tablet by ity of tablet 15:12: mouth. [address] gabapentin 2023-0 Yes 600mg Take 1 Univ ers 600 mg 4-09 tablet by ity of tablet 15:12: mouth. [address] gabapentin 2023-0 Yes 600mg Take 1 Univ ers 600 mg 4-09 tablet by ity of tablet 15:12: mouth. [address] gabapentin 2023-0 Yes 600mg Take 1 Univ ers 600 mg 4-09 tablet by ity of tablet 15:12: mouth. [address] doxycycline 2023-0 2023- No [id number] 100mg Take 1 Univers hyclate 100 4-09 04-20 tablet by it y of mg tablet 00:00: 04:59 mouth in [place] as 00 :00 the Medical morning Branch and 1 tablet in the evening. Do all this for 10 days. doxycycline 2023-0 2023- No [id number] 100mg Take 1 Univers hyclate 100 07-05-20 tablet by it y of mg tablet 00:00: 04:59 mouth in [place] as 00 :00 the Medical morning Branch and 1 tablet in the evening. Do all this for 10 days. doxycycline 2022- No [id number] 100mg Take 1 Univers hyclate 100 07-05-20 tablet by it y of mg tablet 00:00: 04:59 mouth in [place] as 00 :00 the Medical morning Branch and 1 tablet in the evening. Do all this for 10 days. doxycycline 2022- No [id number] 100mg Take 1 Univers hyclate 100 07-05-20 tablet by it y of mg tablet 00:00: 04:59 mouth in [place] as 00 :00 the Medical morning Branch and 1 tablet in the evening. Do all this for 10 days. amoxicillin 2022- No [id number] 1{tbl} Take 1 Univers -clavulanat 07-05- [id number] tablet by ity of e 00:00: 04:59 mouth in [place] (AUGMENTIN) 00 :00 the Medical 875-125 mg morning Branch per tablet and 1 tablet in the evening. Do all this for 7 days. amoxicillin 2022- No [id number] 1{tbl} Take 1 Univers -clavulanat 4-11 30- [id number] tablet by ity of e 00:00: 04:59 mouth in [place] (AUGMENTIN) 00 :00 the Medical 875-125 mg morning Branch per tablet and 1 tablet in the evening. Do all this for 7 days. amoxicillin 2022- No [id number] 1{tbl} Take 1 Univers -clavulanat 4-11 30- [id number] tablet by ity of e 00:00: 04:59 mouth in [place] (AUGMENTIN) 00 :00 the Medical 875-125 mg morning Branch per tablet and 1 tablet in the evening. Do all this for 7 days. mineral Yes APPLY 1/ Unive rs oil/petrola 2-09 INCH ity of binh,white 00:00: [place] TO [place] (WHITE 00 BOTH EYES Medical PETROLATUM- AT BEDTIME Br anch MINERAL OIL FOR EYE OPHTHALMIC) CARE mineral Yes APPLY 1/4 Unive rs oil/petrola 2-09 INCH ity of binh,white 00:00: [place] TO [place] (WHITE 00 BOTH EYES Medical PETROLATUM- AT BEDTIME Br anch MINERAL OIL FOR EYE OPHTHALMIC) CARE mineral Yes APPLY 1/4 Unive rs oil/petrola 2-09 INCH ity of binh,white 00:00: [place] TO [place] (WHITE 00 BOTH EYES Medical PETROLATUM- AT BEDTIME Br anch MINERAL OIL FOR EYE OPHTHALMIC) CARE mineral Yes APPLY 1/4 Unive rs oil/petrola 2-09 INCH ity of binh,white 00:00: [place] TO [place] (WHITE 00 BOTH EYES Medical PETROLATUM- AT BEDTIME Br anch MINERAL OIL FOR EYE OPHTHALMIC) CARE mineral Yes APPLY 1/4 Unive rs oil/petrola 2-09 INCH ity of binh,white 00:00: [place] TO [place] (WHITE 00 BOTH EYES Medical PETROLATUM- AT BEDTIME Br anch MINERAL OIL FOR EYE OPHTHALMIC) CARE mineral Yes APPLY 1/4 Unive rs oil/petrola 2-09 INCH ity of binh,white 00:00: [place] TO [place] (WHITE 00 BOTH EYES Medical PETROLATUM- AT BEDTIME Br anch MINERAL OIL FOR EYE OPHTHALMIC) CARE mineral Yes APPLY 1/4 Unive rs oil/petrola 2-09 INCH ity of binh,white 00:00: [place] TO [place] (WHITE 00 BOTH EYES Medical PETROLATUM- AT BEDTIME Br anch MINERAL OIL FOR EYE OPHTHALMIC) CARE mineral Yes APPLY 1/4 Unive rs oil/petrola 2-09 INCH ity of binh,white 00:00: [place] TO [place] (WHITE 00 BOTH EYES Medical PETROLATUM- AT BEDTIME Br anch MINERAL OIL FOR EYE OPHTHALMIC) CARE mineral Yes APPLY 1/4 Unive rs oil/petrola 2-09 INCH ity of binh,white 00:00: [place] TO [place] (WHITE 00 BOTH EYES Medical PETROLATUM- AT BEDTIME Br anch MINERAL OIL FOR EYE OPHTHALMIC) CARE mineral Yes APPLY 1/4 Unive rs oil/petrola 2-09 INCH ity of binh,white 00:00: [place] TO [place] (WHITE 00 BOTH EYES Medical PETROLATUM- AT BEDTIME Br anch MINERAL OIL FOR EYE OPHTHALMIC) CARE mineral Yes APPLY 1/4 Unive rs oil/petrola 2-09 INCH ity of binh,white 00:00: [place] TO [place] (WHITE 00 BOTH EYES Medical PETROLATUM- AT BEDTIME Br anch MINERAL OIL FOR EYE OPHTHALMIC) CARE mineral Yes APPLY 1/4 Unive rs oil/petrola 2-09 INCH ity of binh,white 00:00: [place] TO [place] (WHITE 00 BOTH EYES Medical PETROLATUM- AT BEDTIME Br anch MINERAL OIL FOR EYE OPHTHALMIC) CARE mineral Yes APPLY 1/4 Unive rs oil/petrola 2-09 INCH ity of binh,white 00:00: [place] TO [place] (WHITE 00 BOTH EYES Medical PETROLATUM- AT BEDTIME Br anch MINERAL OIL FOR EYE OPHTHALMIC) CARE mineral Yes APPLY 1/4 Unive rs oil/petrola 2-09 INCH ity of binh,white 00:00: [place] (WHITE 00 BOTH EYES Medical PETROLATUM- AT BEDTIME Br anch MINERAL OIL FOR EYE OPHTHALMIC) CARE mineral Yes APPLY 1/4 Unive rs oil/petrola 2-09 INCH ity of bin[facility],white 00:00: [place] (WHITE 00 BOTH EYES Medical PETROLATUM- AT BEDTIME Br anch MINERAL OIL FOR EYE OPHTHALMIC) CARE mineral Yes APPLY 1/4 Unive rs oil/petrola 2-09 INCH ity of [place],white 00:00: [place] (WHITE 00 BOTH EYES Medical PETROLATUM- AT BEDTIME Br anch MINERAL OIL FOR EYE OPHTHALMIC) CARE mineral Yes APPLY 1/4 Unive rs oil/petrola 2-09 INCH ity of bin[facility],white 00:00: [place] (WHITE 00 BOTH EYES Medical PETROLATUM- AT BEDTIME Br anch MINERAL OIL FOR EYE OPHTHALMIC) CARE mineral Yes APPLY 1/4 Unive rs oil/petrola 2-09 INCH ity of binh,white 00:00: [place] (WHITE 00 BOTH EYES Medical PETROLATUM- AT BEDTIME Br anch MINERAL OIL FOR EYE OPHTHALMIC) CARE mineral Yes APPLY 1/4 Unive rs oil/petrola 2-09 INCH ity of binh,white 00:00: [place] (WHITE 00 BOTH EYES Medical PETROLATUM- AT BEDTIME Br anch MINERAL OIL FOR EYE OPHTHALMIC) CARE mineral Yes APPLY 1/4 Unive rs oil/petrola 2-09 INCH ity of binh,white 00:00: [place] (WHITE 00 BOTH EYES Medical PETROLATUM- AT BEDTIME Br anch MINERAL OIL FOR EYE OPHTHALMIC) CARE mineral Yes APPLY 1/4 Unive rs oil/petrola 2-09 INCH ity of binh,white 00:00: [place] (WHITE 00 BOTH EYES Medical PETROLATUM- AT BEDTIME Br anch MINERAL OIL FOR EYE OPHTHALMIC) CARE mineral Yes APPLY 1/4 Unive rs oil/petrola 2-09 INCH ity of bin[facility],white 00:00: [place] (WHITE 00 BOTH EYES Medical PETROLATUM- AT BEDTIME Br anch MINERAL OIL FOR EYE OPHTHALMIC) CARE mineral Yes APPLY 1/4 Unive rs oil/petrola 2-09 INCH ity of binh,white 00:00: [place] (WHITE 00 BOTH EYES Medical PETROLATUM- AT BEDTIME Br anch MINERAL OIL FOR EYE OPHTHALMIC) CARE mineral Yes APPLY 1/4 Unive rs oil/petrola 2-09 INCH ity of bin[facility],white 00:00: [place] (WHITE 00 BOTH EYES Medical PETROLATUM- AT BEDTIME Br anch MINERAL OIL FOR EYE OPHTHALMIC) CARE mineral Yes APPLY 1/4 Unive rs oil/petrola 2-09 INCH ity of [place],white 00:00: [place] (WHITE 00 BOTH EYES Medical PETROLATUM- AT BEDTIME Br anch MINERAL OIL FOR EYE OPHTHALMIC) CARE mineral Yes APPLY 1/4 Unive rs oil/petrola 2-09 INCH ity of bin[facility],white 00:00: [place] (WHITE 00 BOTH EYES Medical PETROLATUM- AT BEDTIME Br anch MINERAL OIL FOR EYE OPHTHALMIC) CARE mineral Yes APPLY 1/4 Unive rs oil/petrola 2-09 INCH ity of [place],white 00:00: [place] (WHITE 00 BOTH EYES Medical PETROLATUM- AT BEDTIME Br anch MINERAL OIL FOR EYE OPHTHALMIC) CARE mineral Yes APPLY 1/4 Unive rs oil/petrola 2-09 INCH ity of bin[facility],white 00:00: [place] (WHITE 00 BOTH EYES Medical PETROLATUM- AT BEDTIME Br anch MINERAL OIL FOR EYE OPHTHALMIC) CARE mineral Yes APPLY 1/4 Unive rs oil/petrola 2-09 INCH ity of [place],white 00:00: [place] (WHITE 00 BOTH EYES Medical PETROLATUM- AT BEDTIME Br anch MINERAL OIL FOR EYE OPHTHALMIC) CARE mineral Yes APPLY 1/4 Unive rs oil/petrola 2-09 INCH ity of [place],white 00:00: [place] (WHITE 00 BOTH EYES Medical PETROLATUM- AT BEDTIME Br anch MINERAL OIL FOR EYE OPHTHALMIC) CARE mineral Yes APPLY 1/4 Unive rs oil/petrola 2-09 INCH ity of [place],white 00:00: [place] (WHITE 00 BOTH EYES Medical PETROLATUM- AT BEDTIME Br anch MINERAL OIL FOR EYE OPHTHALMIC) CARE mineral Yes APPLY 1/4 Unive rs oil/petrola 2-09 INCH ity of [place],white 00:00: [place] (WHITE 00 BOTH EYES Medical PETROLATUM- AT BEDTIME Br anch MINERAL OIL FOR EYE OPHTHALMIC) CARE mineral Yes APPLY 1/4 Unive rs oil/petrola 2-09 INCH ity of [place],white 00:00: [place] (WHITE 00 BOTH EYES Medical PETROLATUM- AT BEDTIME Br anch MINERAL OIL FOR EYE OPHTHALMIC) CARE mineral Yes APPLY 1/4 Unive rs oil/petrola 2-09 INCH ity of [facility],white 00:00: [place] (WHITE 00 BOTH EYES Medical PETROLATUM- AT BEDTIME Br anch MINERAL OIL FOR EYE OPHTHALMIC) CARE mineral Yes APPLY 1/4 Unive rs oil/petrola 2-09 INCH ity of [facility],white 00:00: [place] (WHITE 00 BOTH EYES Medical PETROLATUM- AT BEDTIME Br anch MINERAL OIL FOR EYE OPHTHALMIC) CARE mineral Yes APPLY 1/4 Unive rs oil/petrola 2-09 INCH ity of [place],white 00:00: [place] (WHITE 00 BOTH EYES Medical PETROLATUM- AT BEDTIME Br anch MINERAL OIL FOR EYE OPHTHALMIC) CARE mineral Yes APPLY 1/4 Unive rs oil/petrola 2-09 INCH ity of [place],white 00:00: [place] (WHITE 00 BOTH EYES Medical PETROLATUM- AT BEDTIME Br anch MINERAL OIL FOR EYE OPHTHALMIC) CARE mineral Yes APPLY 1/4 Unive rs oil/petrola 2-09 INCH ity of [facility],white 00:00: [place] (WHITE 00 BOTH EYES Medical PETROLATUM- AT BEDTIME Br anch MINERAL OIL FOR EYE OPHTHALMIC) CARE mineral Yes APPLY 1/4 Unive rs oil/petrola 2-09 INCH ity of [place],white 00:00: [place] (WHITE 00 BOTH EYES Medical PETROLATUM- AT BEDTIME Br anch MINERAL OIL FOR EYE OPHTHALMIC) CARE mineral Yes APPLY 1/4 Unive rs oil/petrola 2-09 INCH ity of [place],white 00:00: [place] (WHITE 00 BOTH EYES Medical PETROLATUM- AT BEDTIME Br anch MINERAL OIL FOR EYE OPHTHALMIC) CARE mineral Yes APPLY 1/4 Unive rs oil/petrola 2-09 INCH ity of [place],white 00:00: [place] (WHITE 00 BOTH EYES Medical PETROLATUM- AT BEDTIME Br anch MINERAL OIL FOR EYE OPHTHALMIC) CARE mineral Yes APPLY 1/4 Unive rs oil/petrola 2-09 INCH ity of [facility],white 00:00: [place] (WHITE 00 BOTH EYES Medical PETROLATUM- AT BEDTIME Br anch MINERAL OIL FOR EYE OPHTHALMIC) CARE mineral Yes APPLY 1/4 Unive rs oil/petrola 2-09 INCH ity of [facility],white 00:00: [place] (WHITE 00 BOTH EYES Medical PETROLATUM- AT BEDTIME Br anch MINERAL OIL FOR EYE OPHTHALMIC) CARE mineral Yes APPLY 1/4 Unive rs oil/petrola 2-09 INCH ity of [place],white 00:00: [place] (WHITE 00 BOTH EYES Medical PETROLATUM- AT BEDTIME Br anch MINERAL OIL FOR EYE OPHTHALMIC) CARE mineral 2023-0 Yes APPLY 1/4 Unive rs oil/petrola 2-09 INCH ity of [place],white 00:00: [place] (WHITE 00 BOTH EYES Medical PETROLATUM- AT BEDTIME Br anch MINERAL OIL FOR EYE OPHTHALMIC) CARE mineral 2022-0 Yes APPLY 1/4 Unive rs oil/petrola 2-09 INCH ity of [place],white 00:00: [place] (WHITE 00 BOTH EYES Medical PETROLATUM- AT BEDTIME Br anch MINERAL OIL FOR EYE OPHTHALMIC) CARE levothyroxi 2022-0 Yes 25ug 1 tablet. U nivers ne 1-10 ity of (SYNTHROID) 00:00: [place] 25 mcg 00 Medical tablet Branch levothyroxi 2022-0 Yes 25ug 1 tablet. U nivers ne 1-10 ity of (SYNTHROID) 00:00: [place] 25 mcg 00 Medical tablet Branch levothyroxi 2022-0 Yes 25ug 1 tablet. U nivers ne 1-10 ity of (SYNTHROID) 00:00: [place] 25 mcg 00 Medical tablet Branch levothyroxi 2022-0 Yes 25ug 1 tablet. U nivers ne 1-10 ity of (SYNTHROID) 00:00: [place] 25 mcg 00 Medical tablet Branch levothyroxi 3-0 Yes 25ug 1 tablet. U nivers ne 1-10 ity of (SYNTHROID) 00:00: [place] 25 mcg 00 Medical tablet Branch levothyroxi 3-0 Yes 25ug 1 tablet. U nivers ne 1-10 ity of (SYNTHROID) 00:00: [place] 25 mcg 00 Medical tablet Branch levothyroxi 3-0 Yes 25ug 1 tablet. U nivers ne 1-10 ity of (SYNTHROID) 00:00: [place] 25 mcg 00 Medical tablet Branch levothyroxi 3-0 Yes 25ug 1 tablet. U nivers ne 1-10 ity of (SYNTHROID) 00:00: [place] 25 mcg 00 Medical tablet Branch levothyroxi 2023-0 Yes 25ug 1 tablet. U nivers ne 1-10 ity of (SYNTHROID) 00:00: [place] 25 mcg 00 Medical tablet Branch levothyroxi 2023-0 Yes 25ug 1 tablet. U nivers ne 1-10 ity of (SYNTHROID) 00:00: [place] 25 mcg 00 Medical tablet Branch levothyroxi 2023-0 Yes 25ug 1 tablet. U nivers ne 1-10 ity of (SYNTHROID) 00:00: [place] 25 mcg 00 Medical tablet Branch levothyroxi 2023-0 Yes 25ug 1 tablet. U nivers ne 1-10 ity of (SYNTHROID) 00:00: [place] 25 mcg 00 Medical tablet Branch levothyroxi 2023-0 Yes 25ug 1 tablet. U nivers ne 1-10 ity of (SYNTHROID) 00:00: [place] 25 mcg 00 Medical tablet Branch levothyroxi 2023-0 Yes 25ug 1 tablet. U nivers ne 1-10 ity of (SYNTHROID) 00:00: [place] 25 mcg 00 Medical tablet Branch levothyroxi 2023-0 Yes 25ug 1 tablet. U nivers ne 1-10 ity of (SYNTHROID) 00:00: [place] 25 mcg 00 Medical tablet Branch levothyroxi 2023-0 Yes 25ug 1 tablet. U nivers ne 1-10 ity of (SYNTHROID) 00:00: [place] 25 mcg 00 Medical tablet Branch levothyroxi 2023-0 Yes 25ug 1 tablet. U nivers ne 1-10 ity of (SYNTHROID) 00:00: [place] 25 mcg 00 Medical tablet Branch levothyroxi 2023-0 Yes 25ug 1 tablet. U nivers ne 1-10 ity of (SYNTHROID) 00:00: [place] 25 mcg 00 Medical tablet Branch levothyroxi 2023-0 Yes 25ug 1 tablet. U nivers ne 1-10 ity of (SYNTHROID) 00:00: [place] 25 mcg 00 Medical tablet Branch levothyroxi 2023-0 Yes 25ug 1 tablet. U nivers ne 1-10 ity of (SYNTHROID) 00:00: [place] 25 mcg 00 Medical tablet Branch levothyroxi 2023-0 Yes 25ug 1 tablet. U nivers ne 1-10 ity of (SYNTHROID) 00:00: [place] 25 mcg 00 Medical tablet Branch levothyroxi 2023-0 Yes 25ug 1 tablet. U nivers ne 1-10 ity of (SYNTHROID) 00:00: [place] 25 mcg 00 Medical tablet Branch levothyroxi 2023-0 Yes 25ug 1 tablet. U nivers ne 1-10 ity of (SYNTHROID) 00:00: [place] 25 mcg 00 Medical tablet Branch levothyroxi 2023-0 Yes 25ug 1 tablet. U nivers ne 1-10 ity of (SYNTHROID) 00:00: [place] 25 mcg 00 Medical tablet Branch levothyroxi 2023-0 Yes 25ug 1 tablet. U nivers ne 1-10 ity of (SYNTHROID) 00:00: [place] 25 mcg 00 Medical tablet Branch levothyroxi 2023-0 Yes 25ug 1 tablet. U nivers ne 1-10 ity of (SYNTHROID) 00:00: [place] 25 mcg 00 Medical tablet Branch levothyroxi 2023-0 Yes 25ug 1 tablet. U nivers ne 1-10 ity of (SYNTHROID) 00:00: [place] 25 mcg 00 Medical tablet Branch levothyroxi 2023-0 Yes 25ug 1 tablet. U nivers ne 1-10 ity of (SYNTHROID) 00:00: [place] 25 mcg 00 Medical tablet Branch levothyroxi 2023-0 Yes 25ug 1 tablet. U nivers ne 1-10 ity of (SYNTHROID) 00:00: [place] 25 mcg 00 Medical tablet Branch levothyroxi 2023-0 Yes 25ug 1 tablet. U nivers ne 1-10 ity of (SYNTHROID) 00:00: [place] 25 mcg 00 Medical tablet Branch levothyroxi 2023-0 Yes 25ug 1 tablet. U nivers ne 1-10 ity of (SYNTHROID) 00:00: [place] 25 mcg 00 Medical tablet Branch levothyroxi 2023-0 Yes 25ug 1 tablet. U nivers ne 1-10 ity of (SYNTHROID) 00:00: [place] 25 mcg 00 Medical tablet Branch levothyroxi 2023-0 Yes 25ug 1 tablet. U nivers ne 1-10 ity of (SYNTHROID) 00:00: [place] 25 mcg 00 Medical tablet Branch levothyroxi 2023-0 Yes 25ug 1 tablet. U nivers ne 1-10 ity of (SYNTHROID) 00:00: [place] 25 mcg 00 Medical tablet Branch levothyroxi 2023-0 Yes 25ug 1 tablet. U nivers ne 1-10 ity of (SYNTHROID) 00:00: [place] 25 mcg 00 Medical tablet Branch levothyroxi 2023-0 Yes 25ug 1 tablet. U nivers ne 1-10 ity of (SYNTHROID) 00:00: [place] 25 mcg 00 Medical tablet Branch levothyroxi 2022-0 Yes 25ug 1 tablet. U nivers ne 1-10 ity of (SYNTHROID) 00:00: [place] 25 mcg 00 Medical tablet Branch levothyroxi 2022-0 Yes 25ug 1 tablet. U nivers ne 1-10 ity of (SYNTHROID) 00:00: [place] 25 mcg 00 Medical tablet Branch levothyroxi 2022-0 Yes 25ug 1 tablet. U nivers ne 1-10 ity of (SYNTHROID) 00:00: [place] 25 mcg 00 Medical tablet Branch levothyroxi 2022-0 Yes 25ug 1 tablet. U nivers ne 1-10 ity of (SYNTHROID) 00:00: [place] 25 mcg 00 Medical tablet Branch levothyroxi 2022-0 Yes 25ug 1 tablet. U nivers ne 1-10 ity of (SYNTHROID) 00:00: [place] 25 mcg 00 Medical tablet Branch levothyroxi 2022-0 Yes 25ug 1 tablet. U nivers ne 1-10 ity of (SYNTHROID) 00:00: [place] 25 mcg 00 Medical tablet Branch levothyroxi 2022-0 Yes 25ug 1 tablet. U nivers ne 1-10 ity of (SYNTHROID) 00:00: [place] 25 mcg 00 Medical tablet Branch levothyroxi 2022-0 Yes 25ug 1 tablet. U nivers ne 1-10 ity of (SYNTHROID) 00:00: [place] 25 mcg 00 Medical tablet Branch levothyroxi 2022-0 Yes 25ug 1 tablet. U nivers ne 1-10 ity of (SYNTHROID) 00:00: [place] 25 mcg 00 Medical tablet Branch levothyroxi 2022-0 Yes 25ug 1 tablet. U nivers ne 1-10 ity of (SYNTHROID) 00:00: [place] 25 mcg 00 Medical tablet Branch terbinafine 2021-03 Yes 250mg 1 tablet. Univers HCL 250 mg 2-15 ity of tablet 00:00: [place] 00 [facility] carBAMazepi 2021-03 Yes 400mg 2 tablets. Univers ne 200 mg 2-15 ity of tablet 00:00: [place] 00 [facility] clopidogreL 2021-03 Yes 75mg 1 tablet. U nivers 75 mg 2-15 ity of tablet 00:00: [address] gabapentin 2021-03 Yes 600mg 2 Univer s 300 mg 2-15 capsules. ity of capsule 00:00: [address] terbinafine 2021-03 Yes 250mg 1 tablet. Univers HCL 250 mg 2-15 ity of tablet 00:00: [address] carBAMazepi 2021-03 Yes 400mg 2 tablets. Univers ne 200 mg 2-15 ity of tablet 00:00: [address] clopidogreL 2021-03 Yes 75mg 1 tablet. U nivers 75 mg 2-15 ity of tablet 00:00: [address] gabapentin 2021-03 Yes 600mg 2 Univer s 300 mg 2-15 capsules. ity of capsule 00:00: [address] terbinafine 2021-03 Yes 250mg 1 tablet. Univers HCL 250 mg 2-15 ity of tablet 00:00: [address] carBAMazepi 2021-03 Yes 400mg 2 tablets. Univers ne 200 mg 2-15 ity of tablet 00:00: [address] clopidogreL 2021-03 Yes 75mg 1 tablet. U nivers 75 mg 2-15 ity of tablet 00:00: [address] gabapentin 2021-03 Yes 600mg 2 Univer s 300 mg 2-15 capsules. ity of capsule 00:00: [address] terbinafine 2021-03 Yes 250mg 1 tablet. Univers HCL 250 mg 2-15 ity of tablet 00:00: [address] carBAMazepi 2021-03 Yes 400mg 2 tablets. Univers ne 200 mg 2-15 ity of tablet 00:00: [address] clopidogreL 2021-03 Yes 75mg 1 tablet. U nivers 75 mg 2-15 ity of tablet 00:00: [address] gabapentin 2021-03 Yes 600mg 2 Univer s 300 mg 2-15 capsules. ity of capsule 00:00: [address] terbinafine 2021-03 Yes 250mg 1 tablet. Univers HCL 250 mg 2-15 ity of tablet 00:00: [address] carBAMazepi 2021-03 Yes 400mg 2 tablets. Univers ne 200 mg 2-15 ity of tablet 00:00: [address] clopidogreL 2021-03 Yes 75mg 1 tablet. U nivers 75 mg 2-15 ity of tablet 00:00: [address] gabapentin 2021-03 Yes 600mg 2 Univer s 300 mg 2-15 capsules. ity of capsule 00:00: [address] terbinafine 2021-03 Yes 250mg 1 tablet. Univers HCL 250 mg 2-15 ity of tablet 00:00: [address] carBAMazepi 2021-03 Yes 400mg 2 tablets. Univers ne 200 mg 2-15 ity of tablet 00:00: [address] clopidogreL 2021-03 Yes 75mg 1 tablet. U nivers 75 mg 2-15 ity of tablet 00:00: [address] gabapentin 2021-03 Yes 600mg 2 Univer s 300 mg 2-15 capsules. ity of capsule 00:00: [address] terbinafine 2021-03 Yes 250mg 1 tablet. Univers HCL 250 mg 2-15 ity of tablet 00:00: [address] carBAMazepi 2021-03 Yes 400mg 2 tablets. Univers ne 200 mg 2-15 ity of tablet 00:00: [address] clopidogreL 2021-03 Yes 75mg 1 tablet. U nivers 75 mg 2-15 ity of tablet 00:00: [address] gabapentin 2021-03 Yes 600mg 2 Univer s 300 mg 2-15 capsules. ity of capsule 00:00: [address] terbinafine 2021-03 Yes 250mg 1 tablet. Univers HCL 250 mg 2-15 ity of tablet 00:00: [address] carBAMazepi 2021-03 Yes 400mg 2 tablets. Univers ne 200 mg 2-15 ity of tablet 00:00: [address] clopidogreL 2021-03 Yes 75mg 1 tablet. U nivers 75 mg 2-15 ity of tablet 00:00: [address] gabapentin 2021-03 Yes 600mg 2 Univer s 300 mg 2-15 capsules. ity of capsule 00:00: [address] terbinafine 2021-03 Yes 250mg 1 tablet. Univers HCL 250 mg 2-15 ity of tablet 00:00: [address] carBAMazepi 2021-03 Yes 400mg 2 tablets. Univers ne 200 mg 2-15 ity of tablet 00:00: [address] clopidogreL 2021-03 Yes 75mg 1 tablet. U nivers 75 mg 2-15 ity of tablet 00:00: [address] carBAMazepi 2021-03 Yes 400mg 2 tablets. Univers ne 200 mg 2-15 ity of tablet 00:00: [address] clopidogreL 2021-03 Yes 75mg 1 tablet. U nivers 75 mg 2-15 ity of tablet 00:00: [address] gabapentin 2021-03 Yes 600mg 2 Univer s 300 mg 2-15 capsules. ity of capsule 00:00: [address] terbinafine 2021-03 Yes 250mg 1 tablet. Univers HCL 250 mg 2-15 ity of tablet 00:00: [address] carBAMazepi 2021-03 Yes 400mg 2 tablets. Univers ne 200 mg 2-15 ity of tablet 00:00: [address] clopidogreL 2021-03 Yes 75mg 1 tablet. U nivers 75 mg 2-15 ity of tablet 00:00: [address] gabapentin 2021-03 Yes 600mg 2 Univer s 300 mg 2-15 capsules. ity of capsule 00:00: [address] gabapentin 2021-03 Yes 600mg 2 Univer s 300 mg 2-15 capsules. ity of capsule 00:00: [address] terbinafine 2021-03 Yes 250mg 1 tablet. Univers HCL 250 mg 2-15 ity of tablet 00:00: [address] carBAMazepi 2021-03 Yes 400mg 2 tablets. Univers ne 200 mg 2-15 ity of tablet 00:00: [address] clopidogreL 2021-03 Yes 75mg 1 tablet. U nivers 75 mg 2-15 ity of tablet 00:00: [address] gabapentin 2021-03 Yes 600mg 2 Univer s 300 mg 2-15 capsules. ity of capsule 00:00: [address] terbinafine 2021-03 Yes 250mg 1 tablet. Univers HCL 250 mg 2-15 ity of tablet 00:00: [address] terbinafine 2021-03 Yes 250mg 1 tablet. Univers HCL 250 mg 2-15 ity of tablet 00:00: [address] carBAMazepi 2021-03 Yes 400mg 2 tablets. Univers ne 200 mg 2-15 ity of tablet 00:00: [address] clopidogreL 2021-03 Yes 75mg 1 tablet. U nivers 75 mg 2-15 ity of tablet 00:00: [address] gabapentin 2021-03 Yes 600mg 2 Univer s 300 mg 2-15 capsules. ity of capsule 00:00: [address] terbinafine 2021-03 Yes 250mg 1 tablet. Univers HCL 250 mg 2-15 ity of tablet 00:00: [address] carBAMazepi 2021-03 Yes 400mg 2 tablets. Univers ne 200 mg 2-15 ity of tablet 00:00: [address] clopidogreL 2021-03 Yes 75mg 1 tablet. U nivers 75 mg 2-15 ity of tablet 00:00: [address] gabapentin 2021-03 Yes 600mg 2 Univer s 300 mg 2-15 capsules. ity of capsule 00:00: [address] terbinafine 2021-03 Yes 250mg 1 tablet. Univers HCL 250 mg 2-15 ity of tablet 00:00: [address] carBAMazepi 2021-03 Yes 400mg 2 tablets. Univers ne 200 mg 2-15 ity of tablet 00:00: [address] clopidogreL 2021-03 Yes 75mg 1 tablet. U nivers 75 mg 2-15 ity of tablet 00:00: [address] gabapentin 2021-03 Yes 600mg 2 Univer s 300 mg 2-15 capsules. ity of capsule 00:00: [address] terbinafine 2021-03 Yes 250mg 1 tablet. Univers HCL 250 mg 2-15 ity of tablet 00:00: [address] carBAMazepi 2021-03 Yes 400mg 2 tablets. Univers ne 200 mg 2-15 ity of tablet 00:00: [address] clopidogreL 2021-03 Yes 75mg 1 tablet. U nivers 75 mg 2-15 ity of tablet 00:00: [address] gabapentin 2021-03 Yes 600mg 2 Univer s 300 mg 2-15 capsules. ity of capsule 00:00: [address] terbinafine 2021-03 Yes 250mg 1 tablet. Univers HCL 250 mg 2-15 ity of tablet 00:00: [address] carBAMazepi 2021-03 Yes 400mg 2 tablets. Univers ne 200 mg 2-15 ity of tablet 00:00: [address] clopidogreL 2021-03 Yes 75mg 1 tablet. U nivers 75 mg 2-15 ity of tablet 00:00: [address] gabapentin 2021-03 Yes 600mg 2 Univer s 300 mg 2-15 capsules. ity of capsule 00:00: [address] terbinafine 2021-03 Yes 250mg 1 tablet. Univers HCL 250 mg 2-15 ity of tablet 00:00: [address] carBAMazepi 2021-03 Yes 400mg 2 tablets. Univers ne 200 mg 2-15 ity of tablet 00:00: [address] clopidogreL 2021-03 Yes 75mg 1 tablet. U nivers 75 mg 2-15 ity of tablet 00:00: [address] gabapentin 2021-03 Yes 600mg 2 Univer s 300 mg 2-15 capsules. ity of capsule 00:00: [address] terbinafine 2021-03 Yes 250mg 1 tablet. Univers HCL 250 mg 2-15 ity of tablet 00:00: [address] carBAMazepi 2021-03 Yes 400mg 2 tablets. Univers ne 200 mg 2-15 ity of tablet 00:00: [address] clopidogreL 2021-03 Yes 75mg 1 tablet. U nivers 75 mg 2-15 ity of tablet 00:00: [address] gabapentin 2021-03 Yes 600mg 2 Univer s 300 mg 2-15 capsules. ity of capsule 00:00: [address] terbinafine 2021-03 Yes 250mg 1 tablet. Univers HCL 250 mg 2-15 ity of tablet 00:00: [address] carBAMazepi 2021-03 Yes 400mg 2 tablets. Univers ne 200 mg 2-15 ity of tablet 00:00: [address] clopidogreL 2021-03 Yes 75mg 1 tablet. U nivers 75 mg 2-15 ity of tablet 00:00: [address] gabapentin 2021-03 Yes 600mg 2 Univer s 300 mg 2-15 capsules. ity of capsule 00:00: [address] terbinafine 2021-03 Yes 250mg 1 tablet. Univers HCL 250 mg 2-15 ity of tablet 00:00: [address] carBAMazepi 2021-03 Yes 400mg 2 tablets. Univers ne 200 mg 2-15 ity of tablet 00:00: [address] clopidogreL 2021-03 Yes 75mg 1 tablet. U nivers 75 mg 2-15 ity of tablet 00:00: [address] gabapentin 2021-03 Yes 600mg 2 Univer s 300 mg 2-15 capsules. ity of capsule 00:00: [address] terbinafine 2021-03 Yes 250mg 1 tablet. Univers HCL 250 mg 2-15 ity of tablet 00:00: [address] carBAMazepi 2021-03 Yes 400mg 2 tablets. Univers ne 200 mg 2-15 ity of tablet 00:00: [address] clopidogreL 2021-03 Yes 75mg 1 tablet. U nivers 75 mg 2-15 ity of tablet 00:00: [address] gabapentin 2021-03 Yes 600mg 2 Univer s 300 mg 2-15 capsules. ity of capsule 00:00: [address] terbinafine 2021-03 Yes 250mg 1 tablet. Univers HCL 250 mg 2-15 ity of tablet 00:00: [address] carBAMazepi 2021-03 Yes 400mg 2 tablets. Univers ne 200 mg 2-15 ity of tablet 00:00: [address] clopidogreL 2021-03 Yes 75mg 1 tablet. U nivers 75 mg 2-15 ity of tablet 00:00: [address] gabapentin 2021-03 Yes 600mg 2 Univer s 300 mg 2-15 capsules. ity of capsule 00:00: [address] terbinafine 2021-03 Yes 250mg 1 tablet. Univers HCL 250 mg 2-15 ity of tablet 00:00: [address] carBAMazepi 2021-03 Yes 400mg 2 tablets. Univers ne 200 mg 2-15 ity of tablet 00:00: [address] clopidogreL 2021-03 Yes 75mg 1 tablet. U nivers 75 mg 2-15 ity of tablet 00:00: [address] gabapentin 2021-03 Yes 600mg 2 Univer s 300 mg 2-15 capsules. ity of capsule 00:00: [address] terbinafine 2021-03 Yes 250mg 1 tablet. Univers HCL 250 mg 2-15 ity of tablet 00:00: [address] carBAMazepi 2021-03 Yes 400mg 2 tablets. Univers ne 200 mg 2-15 ity of tablet 00:00: [address] clopidogreL 2021-03 Yes 75mg 1 tablet. U nivers 75 mg 2-15 ity of tablet 00:00: [address] gabapentin 2021-03 Yes 600mg 2 Univer s 300 mg 2-15 capsules. ity of capsule 00:00: [address] terbinafine 2021-03 Yes 250mg 1 tablet. Univers HCL 250 mg 2-15 ity of tablet 00:00: [address] carBAMazepi 2021-03 Yes 400mg 2 tablets. Univers ne 200 mg 2-15 ity of tablet 00:00: [address] clopidogreL 2021-03 Yes 75mg 1 tablet. U nivers 75 mg 2-15 ity of tablet 00:00: [address] gabapentin 2021-03 Yes 600mg 2 Univer s 300 mg 2-15 capsules. ity of capsule 00:00: [address] terbinafine 2021-03 Yes 250mg 1 tablet. Univers HCL 250 mg 2-15 ity of tablet 00:00: [address] carBAMazepi 2021-03 Yes 400mg 2 tablets. Univers ne 200 mg 2-15 ity of tablet 00:00: [address] clopidogreL 2021-03 Yes 75mg 1 tablet. U nivers 75 mg 2-15 ity of tablet 00:00: [address] gabapentin 2021-03 Yes 600mg 2 Univer s 300 mg 2-15 capsules. ity of capsule 00:00: [address] terbinafine 2021-03 Yes 250mg 1 tablet. Univers HCL 250 mg 2-15 ity of tablet 00:00: [address] carBAMazepi 2021-03 Yes 400mg 2 tablets. [facility] 200 mg 2-15 ity of tablet 00:00: [address] clopidogreL 2021-03 Yes 75mg 1 tablet. [facility] nivers 75 mg 2-15 ity of tablet 00:00: [address] gabapentin 2021-03 Yes 600mg 2 [facility] 300 mg 2-15 capsules. ity of capsule 00:00: [address] terbinafine 2021-03 Yes 250mg 1 tablet. [facility] HCL 250 mg 2-15 ity of tablet 00:00: [address] carBAMazepi 2021-03 Yes 400mg 2 tablets. [facility] 200 mg 2-15 ity of tablet 00:00: [address] clopidogreL 2021-03 Yes 75mg 1 tablet. [facility] nivers 75 mg 2-15 ity of tablet 00:00: [address] gabapentin 2021-03 Yes 600mg 2 [facility] 300 mg 2-15 capsules. ity of capsule 00:00: [address] terbinafine 2021-03 Yes 250mg 1 tablet. [facility] HCL 250 mg 2-15 ity of tablet 00:00: [address] carBAMazepi 2021-03 Yes 400mg 2 tablets. [facility] 200 mg 2-15 ity of tablet 00:00: [address] clopidogreL 2021-03 Yes 75mg 1 tablet. [facility] nivers 75 mg 2-15 ity of tablet 00:00: [address] gabapentin 2021-03 Yes 600mg 2 [facility] 300 mg 2-15 capsules. ity of capsule 00:00: [address] terbinafine 2021-03 Yes 250mg 1 tablet. [facility] HCL 250 mg 2-15 ity of tablet 00:00: [address] carBAMazepi 2021-03 Yes 400mg 2 tablets. [facility] 200 mg 2-15 ity of tablet 00:00: [address] clopidogreL 2021-03 Yes 75mg 1 tablet. U nivers 75 mg 2-15 ity of tablet 00:00: [address] gabapentin 2021-03 Yes 600mg 2 Univer s 300 mg 2-15 capsules. ity of capsule 00:00: [address] terbinafine 2021-03 Yes 250mg 1 tablet. [facility] HCL 250 mg 2-15 ity of tablet 00:00: [address] carBAMazepi 2021-03 Yes 400mg 2 tablets. [facility] ne 200 mg 2-15 ity of tablet 00:00: [address] clopidogreL 2021-03 Yes 75mg 1 tablet. U nivers 75 mg 2-15 ity of tablet 00:00: [address] gabapentin 2021-03 Yes 600mg 2 Univer s 300 mg 2-15 capsules. ity of capsule 00:00: [address] terbinafine 2021-03 Yes 250mg 1 tablet. [facility] HCL 250 mg 2-15 ity of tablet 00:00: [address] carBAMazepi 2021-03 Yes 400mg 2 tablets. [facility] ne 200 mg 2-15 ity of tablet 00:00: [address] clopidogreL 2021-03 Yes 75mg 1 tablet. U nivers 75 mg 2-15 ity of tablet 00:00: [address] gabapentin 2021-03 Yes 600mg 2 Univer s 300 mg 2-15 capsules. ity of capsule 00:00: [address] terbinafine 2021-03 Yes 250mg 1 tablet. [facility] HCL 250 mg 2-15 ity of tablet 00:00: [address] carBAMazepi 2021-03 Yes 400mg 2 tablets. [facility] ne 200 mg 2-15 ity of tablet 00:00: [address] clopidogreL 2021-03 Yes 75mg 1 tablet. U nivers 75 mg 2-15 ity of tablet 00:00: [address] gabapentin 2021-03 Yes 600mg 2 Univer s 300 mg 2-15 capsules. ity of capsule 00:00: [address] terbinafine 2021-03 Yes 250mg 1 tablet. [facility] HCL 250 mg 2-15 ity of tablet 00:00: [address] carBAMazepi 2021-03 Yes 400mg 2 tablets. [facility] ne 200 mg 2-15 ity of tablet 00:00: [address] clopidogreL 2021-03 Yes 75mg 1 tablet. U nivers 75 mg 2-15 ity of tablet 00:00: [address] gabapentin 2021-03 Yes 600mg 2 Un[facility] s 300 mg 2-15 capsules. ity of capsule 00:00: [address] terbinafine 2021-03 Yes 250mg 1 tablet. [facility] HCL 250 mg 2-15 ity of tablet 00:00: [address] carBAMazepi 2021-03 Yes 400mg 2 tablets. [facility] ne 200 mg 2-15 ity of tablet 00:00: [address] clopidogreL 2021-03 Yes 75mg 1 tablet. U nivers 75 mg 2-15 ity of tablet 00:00: [address] gabapentin 2021-03 Yes 600mg 2 Univer s 300 mg 2-15 capsules. ity of capsule 00:00: [address] terbinafine 2021-03 Yes 250mg 1 tablet. [facility] HCL 250 mg 2-15 ity of tablet 00:00: [address] carBAMazepi 2021-03 Yes 400mg 2 tablets. [facility] ne 200 mg 2-15 ity of tablet 00:00: [address] clopidogreL 2021-03 Yes 75mg 1 tablet. U nivers 75 mg 2-15 ity of tablet 00:00: [address] gabapentin 2021-03 Yes 600mg 2 Un[facility] s 300 mg 2-15 capsules. ity of capsule 00:00: [address] terbinafine 2021-03 Yes 250mg 1 tablet. [facility] HCL 250 mg 2-15 ity of tablet 00:00: [address] carBAMazepi 2021-03 Yes 400mg 2 tablets. [facility] ne 200 mg 2-15 ity of tablet 00:00: [address] clopidogreL 2021-03 Yes 75mg 1 tablet. U nivers 75 mg 2-15 ity of tablet 00:00: [address] gabapentin 2021-03 Yes 600mg 2 Univer s 300 mg 2-15 capsules. ity of capsule 00:00: [address] terbinafine 2021-03 Yes 250mg 1 tablet. [facility] HCL 250 mg 2-15 ity of tablet 00:00: [address] carBAMazepi 2021-03 Yes 400mg 2 tablets. [facility] ne 200 mg 2-15 ity of tablet 00:00: [address] clopidogreL 2021-03 Yes 75mg 1 tablet. U nivers 75 mg 2-15 ity of tablet 00:00: [address] gabapentin 2021-03 Yes 600mg 2 Un[facility] s 300 mg 2-15 capsules. ity of capsule 00:00: [address] terbinafine 2021-03 Yes 250mg 1 tablet. [facility] HCL 250 mg 2-15 ity of tablet 00:00: [address] carBAMazepi 2021-03 Yes 400mg 2 tablets. [facility] ne 200 mg 2-15 ity of tablet 00:00: [address] clopidogreL 2021-03 Yes 75mg 1 tablet. U nivers 75 mg 2-15 ity of tablet 00:00: [address] gabapentin 2021-03 Yes 600mg 2 Un[facility] s 300 mg 2-15 capsules. ity of capsule 00:00: [address] terbinafine 2021-03 Yes 250mg 1 tablet. [facility] HCL 250 mg 2-15 ity of tablet 00:00: [address] carBAMazepi 2021-03 Yes 400mg 2 tablets. [facility] ne 200 mg 2-15 ity of tablet 00:00: [address] clopidogreL 2021-03 Yes 75mg 1 tablet. U nivers 75 mg 2-15 ity of tablet 00:00: [address] gabapentin 2021-03 Yes 600mg 2 Un[facility] s 300 mg 2-15 capsules. ity of capsule 00:00: [address] terbinafine 2021-03 Yes 250mg 1 tablet. [facility] HCL 250 mg 2-15 ity of tablet 00:00: [address] carBAMazepi 2021-03 Yes 400mg 2 tablets. [facility] ne 200 mg 2-15 ity of tablet 00:00: [address] clopidogreL 2021-03 Yes 75mg 1 tablet. U nivers 75 mg 2-15 ity of tablet 00:00: [address] gabapentin 2021-03 Yes 600mg 2 Univer s 300 mg 2-15 capsules. ity of capsule 00:00: [address] terbinafine 2021-03 Yes 250mg 1 tablet. [facility] HCL 250 mg 2-15 ity of tablet 00:00: [address] carBAMazepi 2021-03 Yes 400mg 2 tablets. [facility] ne 200 mg 2-15 ity of tablet 00:00: [address] clopidogreL 2021-03 Yes 75mg 1 tablet. U nivers 75 mg 2-15 ity of tablet 00:00: [address] gabapentin 2021-03 Yes 600mg 2 Univer s 300 mg 2-15 capsules. ity of capsule 00:00: [address] terbinafine 2021-03 Yes 250mg 1 tablet. [facility] HCL 250 mg 2-15 ity of tablet 00:00: [address] carBAMazepi 2021-03 Yes 400mg 2 tablets. [facility] ne 200 mg 2-15 ity of tablet 00:00: [address] clopidogreL 2021-03 Yes 75mg 1 tablet. U nivers 75 mg 2-15 ity of tablet 00:00: [address] gabapentin 2021-03 Yes 600mg 2 Univer s 300 mg 2-15 capsules. ity of capsule 00:00: [address] terbinafine 2021-03 Yes 250mg 1 tablet. [facility] HCL 250 mg 2-15 ity of tablet 00:00: [facility] carBAMazepi 2021-03 Yes 400mg 2 tablets. Univers ne 200 mg 2-15 ity of tablet 00:00: [address] clopidogreL 2021-03 Yes 75mg 1 tablet. U nivers 75 mg 2-15 ity of tablet 00:00: [address] gabapentin 2021-03 Yes 600mg 2 Univer s 300 mg 2-15 capsules. ity of capsule 00:00: [address] terbinafine 2021-03 Yes 250mg 1 tablet. [facility] HCL 250 mg 2-15 ity of tablet 00:00: [address] carBAMazepi 2021-03 Yes 400mg 2 tablets. [facility] ne 200 mg 2-15 ity of tablet 00:00: [address] clopidogreL 2021-03 Yes 75mg 1 tablet. U nivers 75 mg 2-15 ity of tablet 00:00: [address] gabapentin 2021-03 Yes 600mg 2 Univer s 300 mg 2-15 capsules. ity of capsule 00:00: [place] [facility] ciprofloxac 2021-03- No [id number] 500mg Take 1 Univers in HCl 500 1-20 11-28 tablet by ity of mg tablet 00:00: 05:59 mouth [place] 00 :00 every 12 Medical (twelve) Branch hours for 7 days. ciprofloxac 2021-03- No [id number] 500mg Take 1 Univers in HCl 500 0-28 11-05 tablet by ity of mg tablet 00:00: 04:59 mouth [place] 00 :00 every 12 Medical (twelve) Branch hours for 7 days. ciprofloxac 2021-03- No [id number] 500mg Take 1 [facility] in HCl 500 0-28 11-05 tablet by ity of mg tablet 00:00: 04:59 mouth [place] 00 :00 every 12 Medical (twelve) Branch hours for 7 days. lisinopriL 2021-03 Yes 5mg 1 tablet. Un chen 5 mg tablet 0-26 ity of 00:00: [address] lisinopriL 2021-03 Yes 5mg 1 tablet. Un chen 5 mg tablet 0-26 ity of 00:00: [place] 00 Medical Branch lisinopriL 2022-1 Yes 5mg 1 tablet. Un chen 5 mg tablet 0-26 ity of 00:00: Medical Branch lisinopriL 2022-1 Yes 5mg 1 tablet. Un chen 5 mg tablet 0-26 ity of 00:00: Medical Branch lisinopriL 2022-1 Yes 5mg 1 tablet. Un chen 5 mg tablet 0-26 ity of 00:00: [facility] Branch lisinopriL 2022- Yes 5mg 1 tablet. Un chen 5 mg tablet 0-26 ity of 00:00: Medical Branch lisinopriL 2022-1 Yes 5mg 1 tablet. Un chen 5 mg tablet 0-26 ity of 00:00: Medical Branch lisinopriL 2022- Yes 5mg 1 tablet. Un chen 5 mg tablet 0-26 ity of 00:00: Medical Branch lisinopriL 202- Yes 5mg 1 tablet. Un chen 5 mg tablet 0-26 ity of 00:00: Medical Branch lisinopriL 202- Yes 5mg 1 tablet. Un cehn 5 mg tablet 0-26 ity of 00:00: Medical Branch lisinopriL 2021- Yes 5mg 1 tablet. Un chen 5 mg tablet 0-26 ity of 00:00: Medical Branch lisinopriL 2021- Yes 5mg 1 tablet. Un chen 5 mg tablet 0-26 ity of 00:00: [facility] lisinopriL 2022- Yes 5mg 1 tablet. Un chen 5 mg tablet 0-26 ity of 00:00: Medical Branch lisinopriL 2022-1 Yes 5mg 1 tablet. Un chen 5 mg tablet 0-26 ity of 00:00: Medical Branch lisinopriL 2022- Yes 5mg 1 tablet. Un chen 5 mg tablet 0-26 ity of 00:00: Medical Branch lisinopriL 2022- Yes 5mg 1 tablet. Un chen 5 mg tablet 0-26 ity of 00:00: [place] [facility] lisinopriL 2022-1 Yes 5mg 1 tablet. Un chen 5 mg tablet 0-26 ity of 00:00: Medical Branch lisinopriL 2022-1 Yes 5mg 1 tablet. Un chen 5 mg tablet 0-26 ity of 00:00: Medical Branch lisinopriL 2022-1 Yes 5mg 1 tablet. Un chen 5 mg tablet 0-26 ity of 00:00: Medical Branch lisinopriL 2022-1 Yes 5mg 1 tablet. Un chen 5 mg tablet 0-26 ity of 00:00: Medical Branch lisinopriL 2022-1 Yes 5mg 1 tablet. Un chen 5 mg tablet 0-26 ity of 00:00: Medical Branch lisinopriL 2022-1 Yes 5mg 1 tablet. Un chen 5 mg tablet 0-26 ity of 00:00: [place] [facility] lisinopriL 2022-1 Yes 5mg 1 tablet. Un chen 5 mg tablet 0-26 ity of 00:00: [place] [facility] lisinopriL 2022-1 Yes 5mg 1 tablet. Un chen 5 mg tablet 0-26 ity of 00:00: [facility] lisinopriL 2022-1 Yes 5mg 1 tablet. Un chen 5 mg tablet 0-26 ity of 00:00: [place] [facility] lisinopriL 2022-1 Yes 5mg 1 tablet. Un chen 5 mg tablet 0-26 ity of 00:00: [place] [facility] lisinopriL 2022-1 Yes 5mg 1 tablet. Un chen 5 mg tablet 0-26 ity of 00:00: [place] [facility] lisinopriL 2022-1 Yes 5mg 1 tablet. Un chen 5 mg tablet 0-26 ity of 00:00: [facility] lisinopriL 2022-1 Yes 5mg 1 tablet. Un chen 5 mg tablet 0-26 ity of 00:00: [place] [facility] lisinopriL 2022-1 Yes 5mg 1 tablet. Un chen 5 mg tablet 0-26 ity of 00:00: [place] [facility] lisinopriL 2022-1 Yes 5mg 1 tablet. Un chen 5 mg tablet 0-26 ity of 00:00: [place] [facility] lisinopriL 2022-1 Yes 5mg 1 tablet. Un chen 5 mg tablet 0-26 ity of 00:00: [facility] lisinopriL 202- Yes 5mg 1 tablet. Un chen 5 mg tablet 0-26 ity of 00:00: [facility] lisinopriL 202- Yes 5mg 1 tablet. Un chen 5 mg tablet 0-26 ity of 00:00: [facility] lisinopriL 2021- Yes 5mg 1 tablet. Un chen 5 mg tablet 0-26 ity of 00:00: [facility] lisinopriL 2021- Yes 5mg 1 tablet. Un chen 5 mg tablet 0-26 ity of 00:00: [facility] lisinopriL 2021- Yes 5mg 1 tablet. Un chen 5 mg tablet 0-26 ity of 00:00: [facility] lisinopriL 2021- Yes 5mg 1 tablet. Un chen 5 mg tablet 0-26 ity of 00:00: [facility] lisinopriL 2021- Yes 5mg 1 tablet. Un chen 5 mg tablet 0-26 ity of 00:00: [facility] lisinopriL 2021- Yes 5mg 1 tablet. Un chen 5 mg tablet 0-26 ity of 00:00: [facility] lisinopriL 2021- Yes 5mg 1 tablet. Un chen 5 mg tablet 0-26 ity of 00:00: [facility] lisinopriL 2021- Yes 5mg 1 tablet. Un chen 5 mg tablet 0-26 ity of 00:00: [facility] lisinopriL 202- Yes 5mg 1 tablet. Un chen 5 mg tablet 0-26 ity of 00:00: [facility] lisinopriL 2021- Yes 5mg 1 tablet. Un chen 5 mg tablet 0-26 ity of 00:00: [facility] lisinopriL 2021- Yes 5mg 1 tablet. Un chen 5 mg tablet 0-26 ity of 00:00: [facility] lisinopriL 2021- Yes 5mg 1 tablet. Un chen 5 mg tablet 0-26 ity of 00:00: [facility] Povidone-Io 2021-03 Yes [id number] Apply to Univers dine 10 % 0-24 area(s) 2 ity o f swab stick 00:00: (two) [place] 00 times Medical daily as Branch needed for Other (straight cath). Povidone-Io 2021-03 Yes [id number] Apply to Univers dine 10 % 0-24 area(s) 2 ity o f swab stick 00:00: (two) [place] 00 times Medical daily as Branch needed for Other (straight cath). Povidone-Io 2021-03 Yes [id number] Apply to Univers dine 10 % 0-24 area(s) 2 ity o f swab stick 00:00: (two) [place] 00 times Medical daily as Branch needed for Other (straight cath). Povidone-Io 2021-03 Yes [id number] Apply to Univers dine 10 % 0-24 area(s) 2 ity o f swab stick 00:00: (two) [place] 00 times Medical daily as Branch needed for Other (straight cath). Povidone-Io 2021-03 Yes [id number] Apply to Univers dine 10 % 0-24 area(s) 2 ity o f swab stick 00:00: (two) [place] 00 times Medical daily as Branch needed for Other (straight cath). Povidone-Io 2021-03 Yes [id number] Apply to Univers dine 10 % 0-24 area(s) 2 ity o f swab stick 00:00: (two) [place] 00 times Medical daily as Branch needed for Other (straight cath). Povidone-Io 2021-03 Yes [id number] Apply to Univers dine 10 % 0-24 area(s) 2 ity o f swab stick 00:00: (two) [place] 00 times Medical daily as Branch needed for Other (straight cath). Povidone-Io 2021-03 Yes [id number] Apply to Univers dine 10 % 0-24 area(s) 2 ity o f swab stick 00:00: (two) [place] 00 times Medical daily as Branch needed for Other (straight cath). Povidone-Io 2021-03 Yes [id number] Apply to Univers dine 10 % 0-24 area(s) 2 ity o f swab stick 00:00: (two) [place] 00 times Medical daily as Branch needed for Other (straight cath). Povidone-Io 2021-03 Yes [id number] Apply to Univers dine 10 % 0-24 area(s) 2 ity o f swab stick 00:00: (two) [place] 00 times Medical daily as Branch needed for Other (straight cath). Povidone-Io 2021-03 Yes [id number] Apply to Univers dine 10 % 0-24 area(s) 2 ity o f swab stick 00:00: (two) [place] 00 times Medical daily as Branch needed for Other (straight cath). Povidone-Io 2021-03 Yes [id number] Apply to Univers dine 10 % 0-24 area(s) 2 ity o f swab stick 00:00: (two) [place] 00 times Medical daily as Branch needed for Other (straight cath). Povidone-Io 2021-03 Yes [id number] Apply to Univers dine 10 % 0-24 area(s) 2 ity o f swab stick 00:00: (two) [place] 00 times Medical daily as Branch needed for Other (straight cath). Povidone-Io 2021-03 Yes [id number] Apply to Univers dine 10 % 0-24 area(s) 2 ity o f swab stick 00:00: (two) [place] 00 times Medical daily as Branch needed for Other (straight cath). Povidone-Io 2021-03 Yes [id number] Apply to Univers dine 10 % 0-24 area(s) 2 ity o f swab stick 00:00: (two) [place] 00 times Medical daily as Branch needed for Other (straight cath). Povidone-Io 2021-03 Yes [id number] Apply to Univers dine 10 % 0-24 area(s) 2 ity o f swab stick 00:00: (two) [place] 00 times Medical daily as Branch needed for Other (straight cath). Povidone-Io 2021-03 Yes [id number] Apply to Univers dine 10 % 0-24 area(s) 2 ity o f swab stick 00:00: (two) [place] 00 times Medical daily as Branch needed for Other (straight cath). Povidone-Io 2021-03 Yes [id number] Apply to Univers dine 10 % 0-24 area(s) 2 ity o f swab stick 00:00: (two) [place] 00 times Medical daily as Branch needed for Other (straight cath). Povidone-Io 2021-03 Yes [id number] Apply to Univers dine 10 % 0-24 area(s) 2 ity o f swab stick 00:00: (two) [place] 00 times Medical daily as Branch needed for Other (straight cath). Povidone-Io 2021-03 Yes [id number] Apply to Univers dine 10 % 0-24 area(s) 2 ity o f swab stick 00:00: (two) [place] 00 times Medical daily as Branch needed for Other (straight cath). Povidone-Io 2021-03 Yes [id number] Apply to Univers dine 10 % 0-24 area(s) 2 ity o f swab stick 00:00: (two) [place] 00 times Medical daily as Branch needed for Other (straight cath). Povidone-Io 2021-03 Yes [id number] Apply to Univers dine 10 % 0-24 area(s) 2 ity o f swab stick 00:00: (two) [place] 00 times Medical daily as Branch needed for Other (straight cath). Povidone-Io 2021-03 Yes [id number] Apply to Univers dine 10 % 0-24 area(s) 2 ity o f swab stick 00:00: (two) [place] 00 times Medical daily as Branch needed for Other (straight cath). Povidone-Io 2021-03 Yes [id number] Apply to Univers dine 10 % 0-24 area(s) 2 ity o f swab stick 00:00: (two) [place] 00 times Medical daily as Branch needed for Other (straight cath). Povidone-Io 2021-03 Yes [id number] Apply to Univers dine 10 % 0-24 area(s) 2 ity o f swab stick 00:00: (two) [place] 00 times Medical daily as Branch needed for Other (straight cath). Povidone-Io 2021-03 Yes [id number] Apply to Univers dine 10 % 0-24 area(s) 2 ity o f swab stick 00:00: (two) [place] 00 times Medical daily as Branch needed for Other (straight cath). Povidone-Io 2021-03 Yes [id number] Apply to Univers dine 10 % 0-24 area(s) 2 ity o f swab stick 00:00: (two) [place] 00 times Medical daily as Branch needed for Other (straight cath). Povidone-Io 2021-03 Yes [id number] Apply to Univers dine 10 % 0-24 area(s) 2 ity o f swab stick 00:00: (two) [place] 00 times Medical daily as Branch needed for Other (straight cath). Povidone-Io 2021-03 Yes [id number] Apply to Univers dine 10 % 0-24 area(s) 2 ity o f swab stick 00:00: (two) [place] 00 times Medical daily as Branch needed for Other (straight cath). Povidone-Io 2021-03 Yes [id number] Apply to Univers dine 10 % 0-24 area(s) 2 ity o f swab stick 00:00: (two) [place] 00 times Medical daily as Branch needed for Other (straight cath). Povidone-Io 2021-03 Yes [id number] Apply to Univers dine 10 % 0-24 area(s) 2 ity o f swab stick 00:00: (two) [place] 00 times Medical daily as Branch needed for Other (straight cath). Povidone-Io 2021-03 Yes [id number] Apply to Univers dine 10 % 0-24 area(s) 2 ity o f swab stick 00:00: (two) [place] 00 times Medical daily as Branch needed for Other (straight cath). Povidone-Io 2021-03 Yes [id number] Apply to Univers dine 10 % 0-24 area(s) 2 ity o f swab stick 00:00: (two) [place] 00 times Medical daily as Branch needed for Other (straight cath). Povidone-Io 2021-03 Yes [id number] Apply to Univers dine 10 % 0-24 area(s) 2 ity o f swab stick 00:00: (two) [place] 00 times Medical daily as Branch needed for Other (straight cath). Povidone-Io 2021-03 Yes [id number] Apply to Univers dine 10 % 0-24 area(s) 2 ity o f swab stick 00:00: (two) [place] 00 times Medical daily as Branch needed for Other (straight cath). Povidone-Io 2021-03 Yes [id number] Apply to Univers dine 10 % 0-24 area(s) 2 ity o f swab stick 00:00: (two) [place] 00 times Medical daily as Branch needed for Other (straight cath). Povidone-Io 2021-03 Yes [id number] Apply to Univers dine 10 % 0-24 area(s) 2 ity o f swab stick 00:00: (two) [place] 00 times Medical daily as Branch needed for Other (straight cath). Povidone-Io 2021-03 Yes [id number] Apply to Univers dine 10 % 0-24 area(s) 2 ity o f swab stick 00:00: (two) [place] 00 times Medical daily as Branch needed for Other (straight cath). Povidone-Io 2021-03 Yes [id number] Apply to Univers dine 10 % 0-24 area(s) 2 ity o f swab stick 00:00: (two) [place] 00 times Medical daily as Branch needed for Other (straight cath). Povidone-Io 2021-03 Yes [id number] Apply to Univers dine 10 % 0-24 area(s) 2 ity o f swab stick 00:00: (two) [place] 00 times Medical daily as Branch needed for Other (straight cath). Povidone-Io 2021-03 Yes [id number] Apply to Univers dine 10 % 0-24 area(s) 2 ity o f swab stick 00:00: (two) [place] 00 times Medical daily as Branch needed for Other (straight cath). Povidone-Io 2021-03 Yes [id number] Apply to Univers dine 10 % 0-24 area(s) 2 ity o f swab stick 00:00: (two) [place] 00 times Medical daily as Branch needed for Other (straight cath). Povidone-Io 2021-03 Yes [id number] Apply to Univers dine 10 % 0-24 area(s) 2 ity o f swab stick 00:00: (two) [place] 00 times Medical daily as Branch needed for Other (straight cath). Povidone-Io 2021-03 Yes [id number] Apply to Univers dine 10 % 0-24 area(s) 2 ity o f swab stick 00:00: (two) [place] 00 times Medical daily as Branch needed for Other (straight cath). Povidone-Io 2021-03 Yes [id number] Apply to Univers dine 10 % 0-24 area(s) 2 ity o f swab stick 00:00: (two) [place] 00 times Medical daily as Branch needed for Other (straight cath). Povidone-Io 2021-03 Yes [id number] Apply to Univers dine 10 % 0-24 area(s) 2 ity o f swab stick 00:00: (two) [place] 00 times Medical daily as Branch needed for Other (straight cath). Povidone-Io 2021-03 Yes [id number] Apply to Univers dine 10 % 0-24 area(s) 2 ity o f swab stick 00:00: (two) [place] 00 times Medical daily as Branch needed for Other (straight cath). Povidone-Io 2021-03 Yes [id number] Apply to Univers dine 10 % 0-24 area(s) 2 ity o f swab stick 00:00: (two) [place] 00 times Medical daily as Branch needed for Other (straight cath). Povidone-Io 2021-03 Yes [id number] Apply to Univers dine 10 % 0-24 area(s) 2 ity o f swab stick 00:00: (two) [place] 00 times Medical daily as Branch needed for Other (straight cath). cephALEXin 2021-03- No [id number] 500mg Take 1 Univers (KEFLEX) 0-24 10-28 capsule by ity of 500 mg 00:00: 00:00 mouth 4 [place] capsule 00 :00 (four) Medical times Branch daily for 10 days. oxyBUTYnin 2021-03 Yes 5mg 1 tablet. Un chen chloride 5 0-07 ity of mg tablet 00:00: Medical Branch acyclovir 2021-03 Yes 200mg 1 capsule. U nivers 200 mg 0-07 ity of capsule 00:00: Medical Branch atorvastati 2021-03 Yes 40mg 0.5 Univer s n 80 mg 0-07 tablets. ity of tablet 00:00: Medical Branch cyanocobala 2021-03 Yes INJECT 1 Un chen min 1,000 0-07 ML ity of mcg/mL 00:00: INTRAMUSCU [place] injection 00 LARLY Medical EVERY Branch MONTH FOR ANEMIA finasteride 2021-03 Yes 5mg 1 tablet. U nivers 5 mg tablet 0-07 ity of 00:00: Medical Branch oxyBUTYnin 2021-03 Yes 5mg 1 tablet. Un chen chloride 5 0-07 ity of mg tablet 00:00: Medical Branch acyclovir 2021-03 Yes 200mg 1 capsule. U nivers 200 mg 0-07 ity of capsule 00:00: Medical Branch atorvastati 2021-03 Yes 40mg 0.5 Univer s n 80 mg 0-07 tablets. ity of tablet 00:00: Medical Branch cyanocobala 2021-03 Yes INJECT 1 Un chen min 1,000 0-07 ML ity of mcg/mL 00:00: INTRAMUSCU [place] injection LARLY Medical EVERY Branch MONTH FOR ANEMIA finasteride 2021-03 Yes 5mg 1 tablet. U nivers 5 mg tablet 0-07 ity of 00:00: Medical Branch oxyBUTYnin 2021-03 Yes 5mg 1 tablet. Un chen chloride 5 0-07 ity of mg tablet 00:00: [facility] acyclovir 2021-03 Yes 200mg 1 capsule. U nivers 200 mg 0-07 ity of capsule 00:00: Medical Branch atorvastati 2021-03 Yes 40mg 0.5 Univer s n 80 mg 0-07 tablets. ity of tablet 00:00: Medical Branch cyanocobala 2021-03 Yes INJECT 1 Un chen min 1,000 0-07 ML ity of mcg/mL 00:00: INTRAMUSCU [place] injection 00 LARLY Medical EVERY Branch MONTH FOR ANEMIA finasteride 2021-03 Yes 5mg 1 tablet. U nivers 5 mg tablet 0-07 ity of 00:00: Medical Branch oxyBUTYnin 2021-03 Yes 5mg 1 tablet. Un chen chloride 5 0-07 ity of mg tablet 00:00: Medical Branch acyclovir 2021-03 Yes 200mg 1 capsule. U nivers 200 mg 0-07 ity of capsule 00:00: Medical Branch atorvastati 2021-03 Yes 40mg 0.5 Univer s n 80 mg 0-07 tablets. ity of tablet 00:00: [facility] cyanocobala 2021-03 Yes INJECT 1 Un chen min 1,000 0-07 ML ity of mcg/mL 00:00: INTRAMUSCU [place] injection 00 LARLY Medical EVERY Branch MONTH FOR ANEMIA finasteride 2021-03 Yes 5mg 1 tablet. U nivers 5 mg tablet 0-07 ity of 00:00: Medical Branch oxyBUTYnin 2021-03 Yes 5mg 1 tablet. Un chen chloride 5 0-07 ity of mg tablet 00:00: [facility] acyclovir 2021-03 Yes 200mg 1 capsule. U nivers 200 mg 0-07 ity of capsule 00:00: Medical Branch atorvastati 2021-03 Yes 40mg 0.5 Univer s n 80 mg 0-07 tablets. ity of tablet 00:00: [facility] cyanocobala 2021-03 Yes INJECT 1 Un chen min 1,000 0-07 ML ity of mcg/mL 00:00: INTRAMUSCU [place] injection 00 LARLY Medical EVERY Branch MONTH FOR ANEMIA finasteride 2021-03 Yes 5mg 1 tablet. U nivers 5 mg tablet 0-07 ity of 00:00: Medical Branch oxyBUTYnin 2021-03 Yes 5mg 1 tablet. Un chen chloride 5 0-07 ity of mg tablet 00:00: Medical Branch acyclovir 2021-03 Yes 200mg 1 capsule. U nivers 200 mg 0-07 ity of capsule 00:00: Medical Branch atorvastati 2021-03 Yes 40mg 0.5 Univer s n 80 mg 0-07 tablets. ity of tablet 00:00: Medical Branch cyanocobala 2021-03 Yes INJECT 1 Un chen min 1,000 0-07 ML ity of mcg/mL 00:00: INTRAMUSCU [place] injection 00 LARLY Medical EVERY Branch MONTH FOR ANEMIA finasteride 2021-03 Yes 5mg 1 tablet. U nivers 5 mg tablet 0-07 ity of 00:00: [facility] oxyBUTYnin 2021-03 Yes 5mg 1 tablet. Un chen chloride 5 0-07 ity of mg tablet 00:00: [facility] acyclovir 2021-03 Yes 200mg 1 capsule. U nivers 200 mg 0-07 ity of capsule 00:00: [facility] atorvastati 2021-03 Yes 40mg 0.5 Univer s n 80 mg 0-07 tablets. ity of tablet 00:00: [facility] cyanocobala 2021-03 Yes INJECT 1 Un chen min 1,000 0-07 ML ity of mcg/mL 00:00: INTRAMUSCU [place] injection LARLY Medical EVERY Branch MONTH FOR ANEMIA finasteride 2021-03 Yes 5mg 1 tablet. U nivers 5 mg tablet 0-07 ity of 00:: [facility] acyclovir 2021-03 Yes 200mg 1 capsule. U nivers 200 mg 0-07 ity of capsule 00:00: [facility] oxyBUTYnin 2021-03 Yes 5mg 1 tablet. Un chen chloride 5 0-07 ity of mg tablet 00:00: [facility] atorvastati 2021-03 Yes 40mg 0.5 Univer s n 80 mg 0-07 tablets. ity of tablet 00:00: [facility] acyclovir 2021-03 Yes 200mg 1 capsule. U nivers 200 mg 0-07 ity of capsule 00:00: [facility] atorvastati 2021-03 Yes 40mg 0.5 Univer s n 80 mg 0-07 tablets. ity of tablet 00:00: [facility] cyanocobala 2021-03 Yes INJECT 1 Un chen min 1,000 0-07 ML ity of mcg/mL 00:00: INTRAMUSCU [place] injection 00 LARLY Medical EVERY Branch MONTH FOR ANEMIA finasteride 2021-03 Yes 5mg 1 tablet. U nivers 5 mg tablet 0-07 ity of 00:00: [facility] oxyBUTYnin 2021-03 Yes 5mg 1 tablet. Un chen chloride 5 0-07 ity of mg tablet 00:00: [facility] acyclovir 2021-03 Yes 200mg 1 capsule. U nivers 200 mg 0-07 ity of capsule 00:00: [facility] atorvastati 2021-03 Yes 40mg 0.5 Univer s n 80 mg 0-07 tablets. ity of tablet 00:00: [facility] cyanocobala 2021-03 Yes INJECT 1 Un chen min 1,000 0-07 ML ity of mcg/mL 00:00: INTRAMUSCU [place] injection 00 LARLY Medical EVERY Branch MONTH FOR ANEMIA finasteride 2021-03 Yes 5mg 1 tablet. U nivers 5 mg tablet 0-07 ity of 00:00: [facility] oxyBUTYnin 2021-03 Yes 5mg 1 tablet. Un chen chloride 5 0-07 ity of mg tablet 00:00: [facility] cyanocobala 2021-03 Yes INJECT 1 Un chen min 1,000 0-07 ML ity of mcg/mL 00:00: INTRAMUSCU [place] injection 00 LARLY Medical EVERY Branch MONTH FOR ANEMIA finasteride 2021-03 Yes 5mg 1 tablet. U nivers 5 mg tablet 0-07 ity of 00:00: [facility] acyclovir 2021-03 Yes 200mg 1 capsule. U nivers 200 mg 0-07 ity of capsule 00:00: [facility] atorvastati 2021-03 Yes 40mg 0.5 Univer s n 80 mg 0-07 tablets. ity of tablet 00:00: [facility] cyanocobala 2021-03 Yes INJECT 1 Un chen min 1,000 0-07 ML ity of mcg/mL 00:00: INTRAMUSCU [place] injection 00 LARLY Medical EVERY Branch MONTH FOR ANEMIA finasteride 2021-03 Yes 5mg 1 tablet. U nivers 5 mg tablet 0-07 ity of 00:00: [facility] oxyBUTYnin 2021-03 Yes 5mg 1 tablet. Un chen chloride 5 0-07 ity of mg tablet 00:00: [facility] acyclovir 2021-03 Yes 200mg 1 capsule. U nivers 200 mg 0-07 ity of capsule 00:00: [facility] atorvastati 2021-03 Yes 40mg 0.5 Univer s n 80 mg 0-07 tablets. ity of tablet 00:00: [facility] cyanocobala 2021-03 Yes INJECT 1 Un chen min 1,000 0-07 ML ity of mcg/mL 00:00: INTRAMUSCU [place] injection 00 LARLY Medical EVERY Branch MONTH FOR ANEMIA finasteride 2021-03 Yes 5mg 1 tablet. U nivers 5 mg tablet 0-07 ity of 00:00: [facility] oxyBUTYnin 2021-03 Yes 5mg 1 tablet. Un chen chloride 5 0-07 ity of mg tablet 00:00: [facility] oxyBUTYnin 2021-03 Yes 5mg 1 tablet. Un chen chloride 5 0-07 ity of mg tablet 00:00: [facility] acyclovir 2021-03 Yes 200mg 1 capsule. U nivers 200 mg 0-07 ity of capsule 00:00: [facility] atorvastati 2021-03 Yes 40mg 0.5 Univer s n 80 mg 0-07 tablets. ity of tablet 00:00: [facility] cyanocobala 2021-03 Yes INJECT 1 Un chen min 1,000 0-07 ML ity of mcg/mL 00:00: INTRAMUSCU [place] injection LARLY Medical EVERY Branch MONTH FOR ANEMIA finasteride 2021-03 Yes 5mg 1 tablet. U nivers 5 mg tablet 0-07 ity of 00:00: [facility] oxyBUTYnin 2021-03 Yes 5mg 1 tablet. Un chen chloride 5 0-07 ity of mg tablet 00:00: [facility] acyclovir 2021-03 Yes 200mg 1 capsule. U nivers 200 mg 0-07 ity of capsule 00:00: [facility] atorvastati 2021-03 Yes 40mg 0.5 Univer s n 80 mg 0-07 tablets. ity of tablet 00:00: [facility] cyanocobala 2021-03 Yes INJECT 1 Un chen min 1,000 0-07 ML ity of mcg/mL 00:00: INTRAMUSCU [place] injection 00 LARLY Medical EVERY Branch MONTH FOR ANEMIA finasteride 2021-03 Yes 5mg 1 tablet. U nivers 5 mg tablet 0-07 ity of 00:00: [facility] oxyBUTYnin 2021-03 Yes 5mg 1 tablet. Un chen chloride 5 0-07 ity of mg tablet 00:00: [facility] acyclovir 2021-03 Yes 200mg 1 capsule. U nivers 200 mg 0-07 ity of capsule 00:00: [facility] atorvastati 2021-03 Yes 40mg 0.5 Univer s n 80 mg 0-07 tablets. ity of tablet 00:00: [facility] cyanocobala 2021-03 Yes INJECT 1 Un chen min 1,000 0-07 ML ity of mcg/mL 00:00: INTRAMUSCU [place] injection 00 LARLY Medical EVERY Branch MONTH FOR ANEMIA finasteride 2021-03 Yes 5mg 1 tablet. U nivers 5 mg tablet 0-07 ity of 00:00: [facility] oxyBUTYnin 2021-03 Yes 5mg 1 tablet. Un chen chloride 5 0-07 ity of mg tablet 00:00: [facility] acyclovir 2021-03 Yes 200mg 1 capsule. U nivers 200 mg 0-07 ity of capsule 00:00: [facility] atorvastati 2021-03 Yes 40mg 0.5 Univer s n 80 mg 0-07 tablets. ity of tablet 00:00: [facility] cyanocobala 2021-03 Yes INJECT 1 Un chen min 1,000 0-07 ML ity of mcg/mL 00:00: INTRAMUSCU [place] injection 00 LARLY Medical EVERY Branch MONTH FOR ANEMIA finasteride 2021-03 Yes 5mg 1 tablet. U nivers 5 mg tablet 0-07 ity of 00:00: [facility] oxyBUTYnin 2021-03 Yes 5mg 1 tablet. Un chen chloride 5 0-07 ity of mg tablet 00:00: [facility] acyclovir 2021-03 Yes 200mg 1 capsule. U nivers 200 mg 0-07 ity of capsule 00:00: [facility] atorvastati 2021-03 Yes 40mg 0.5 Univer s n 80 mg 0-07 tablets. ity of tablet 00:00: [facility] cyanocobala 2021-03 Yes INJECT 1 Un chen min 1,000 0-07 ML ity of mcg/mL 00:00: INTRAMUSCU [place] injection 00 LARLY Medical EVERY Branch MONTH FOR ANEMIA finasteride 2022-1 Yes 5mg 1 tablet. U nivers 5 mg tablet 0-07 ity of 00:00: [facility] oxyBUTYnin 2021-03 Yes 5mg 1 tablet. Un chen chloride 5 0-07 ity of mg tablet 00:00: [facility] acyclovir 2021-03 Yes 200mg 1 capsule. U nivers 200 mg 0-07 ity of capsule 00:00: [facility] atorvastati 2021-03 Yes 40mg 0.5 Univer s n 80 mg 0-07 tablets. ity of tablet 00:00: [facility] cyanocobala 2021-03 Yes INJECT 1 Un chen min 1,000 0-07 ML ity of mcg/mL 00:00: INTRAMUSCU [place] injection LAR Medical EVERY [place] MONTH FOR ANEMIA finasteride 2021-03 Yes 5mg 1 tablet. U nivers 5 mg tablet 0-07 ity of 00:00: [facility] oxyBUTYnin 2021-03 Yes 5mg 1 tablet. Un chen chloride 5 0-07 ity of mg tablet 00:00: [facility] acyclovir 2021-03 Yes 200mg 1 capsule. U nivers 200 mg 0-07 ity of capsule 00:00: [facility] atorvastati 2021-03 Yes 40mg 0.5 Univer s n 80 mg 0-07 tablets. ity of tablet 00:00: [facility] cyanocobala 2021-03 Yes INJECT 1 Un chen min 1,000 0-07 ML ity of mcg/mL 00:00: INTRAMUSCU [place] injection 00 LARLY Medical EVERY [place] MONTH FOR ANEMIA finasteride 2021-03 Yes 5mg 1 tablet. U nivers 5 mg tablet 0-07 ity of 00:00: [facility] oxyBUTYnin 2021-03 Yes 5mg 1 tablet. Un chen chloride 5 0-07 ity of mg tablet 00:00: [facility] acyclovir 2021-03 Yes 200mg 1 capsule. U nivers 200 mg 0-07 ity of capsule 00:00: [facility] atorvastati 2021-03 Yes 40mg 0.5 Univer s n 80 mg 0-07 tablets. ity of tablet 00:00: [facility] cyanocobala 2021-03 Yes INJECT 1 Un chen min 1,000 0-07 ML ity of mcg/mL 00:00: INTRAMUSCU [place] injection 00 LARLY Medical EVERY Branch MONTH FOR ANEMIA finasteride 2021-03 Yes 5mg 1 tablet. U nivers 5 mg tablet 0-07 ity of 00:00: [facility] oxyBUTYnin 2021-03 Yes 5mg 1 tablet. Un chen chloride 5 0-07 ity of mg tablet 00:00: [facility] acyclovir 2021-03 Yes 200mg 1 capsule. U nivers 200 mg 0-07 ity of capsule 00:00: [facility] atorvastati 2021-03 Yes 40mg 0.5 Univer s n 80 mg 0-07 tablets. ity of tablet 00:00: [facility] cyanocobala 2021-03 Yes INJECT 1 Un chen min 1,000 0-07 ML ity of mcg/mL 00:00: INTRAMUSCU [place] injection 00 LARLY Medical EVERY Branch MONTH FOR ANEMIA finasteride 2021-03 Yes 5mg 1 tablet. U nivers 5 mg tablet 0-07 ity of 00:00: [facility] oxyBUTYnin 2021-03 Yes 5mg 1 tablet. Un chen chloride 5 0-07 ity of mg tablet 00:00: [facility] acyclovir 2021-03 Yes 200mg 1 capsule. U nivers 200 mg 0-07 ity of capsule 00:00: [facility] atorvastati 2021-03 Yes 40mg 0.5 Univer s n 80 mg 0-07 tablets. ity of tablet 00:00: [facility] cyanocobala 2021-03 Yes INJECT 1 Un chen min 1,000 0-07 ML ity of mcg/mL 00:00: INTRAMUSCU [place] injection 00 LARLY Medical EVERY Branch MONTH FOR ANEMIA finasteride 2021-03 Yes 5mg 1 tablet. U nivers 5 mg tablet 0-07 ity of 00:00: [facility] oxyBUTYnin 2021-03 Yes 5mg 1 tablet. Un chen chloride 5 0-07 ity of mg tablet 00:00: [facility] acyclovir 2021-03 Yes 200mg 1 capsule. U nivers 200 mg 0-07 ity of capsule 00:00: [facility] atorvastati 2021-03 Yes 40mg 0.5 Univer s n 80 mg 0-07 tablets. ity of tablet 00:00: [facility] cyanocobala 2021-03 Yes INJECT 1 Un chen min 1,000 0-07 ML ity of mcg/mL 00:00: INTRAMUSCU [place] injection 00 LARLY Medical EVERY Branch MONTH FOR ANEMIA finasteride 2021-03 Yes 5mg 1 tablet. U nivers 5 mg tablet 0-07 ity of 00:00: [facility] oxyBUTYnin 2021-03 Yes 5mg 1 tablet. Un chen chloride 5 0-07 ity of mg tablet 00:00: [facility] acyclovir 2021-03 Yes 200mg 1 capsule. U nivers 200 mg 0-07 ity of capsule 00:00: [facility] atorvastati 2021-03 Yes 40mg 0.5 Univer s n 80 mg 0-07 tablets. ity of tablet 00:00: [facility] cyanocobala 2021-03 Yes INJECT 1 Un chen min 1,000 0-07 ML ity of mcg/mL 00:00: INTRAMUSCU [place] injection 00 LARLY Medical EVERY Branch MONTH FOR ANEMIA finasteride 2021-03 Yes 5mg 1 tablet. U nivers 5 mg tablet 0-07 ity of 00:00: [facility] oxyBUTYnin 2021-03 Yes 5mg 1 tablet. Un chen chloride 5 0-07 ity of mg tablet 00:00: [facility] acyclovir 2021-03 Yes 200mg 1 capsule. U nivers 200 mg 0-07 ity of capsule 00:00: [facility] atorvastati 2021-03 Yes 40mg 0.5 Univer s n 80 mg 0-07 tablets. ity of tablet 00:00: [facility] cyanocobala 2021-03 Yes INJECT 1 Un chen min 1,000 0-07 ML ity of mcg/mL 00:00: INTRAMUSCU [place] injection 00 LARLY Medical EVERY Branch MONTH FOR ANEMIA finasteride 2021-03 Yes 5mg 1 tablet. U nivers 5 mg tablet 0-07 ity of 00:00: [facility] oxyBUTYnin 2021-03 Yes 5mg 1 tablet. Un chen chloride 5 0-07 ity of mg tablet 00:00: [facility] acyclovir 2021-03 Yes 200mg 1 capsule. U nivers 200 mg 0-07 ity of capsule 00:00: [facility] atorvastati 2021-03 Yes 40mg 0.5 Univer s n 80 mg 0-07 tablets. ity of tablet 00:00: [facility] cyanocobala 2021-03 Yes INJECT 1 Un chen min 1,000 0-07 ML ity of mcg/mL 00:00: INTRAMUSCU [place] injection 00 [facility] MONTH FOR ANEMIA finasteride 2021-03 Yes 5mg 1 tablet. U nivers 5 mg tablet 0-07 ity of 00:00: [facility] oxyBUTYnin 2021-03 Yes 5mg 1 tablet. Un chen chloride 5 0-07 ity of mg tablet 00:00: [facility] acyclovir 2021-03 Yes 200mg 1 capsule. U nivers 200 mg 0-07 ity of capsule 00:00: [facility] atorvastati 2021-03 Yes 40mg 0.5 Univer s n 80 mg 0-07 tablets. ity of tablet 00:00: [facility] cyanocobala 2021-03 Yes INJECT 1 Un chen min 1,000 0-07 ML ity of mcg/mL 00:00: INTRAMUSCU [place] injection 00 [facility] MONTH FOR ANEMIA finasteride 2021-03 Yes 5mg 1 tablet. U nivers 5 mg tablet 0-07 ity of 00:00: [facility] oxyBUTYnin 2021-03 Yes 5mg 1 tablet. Un chen chloride 5 0-07 ity of mg tablet 00:00: [facility] acyclovir 2021-03 Yes 200mg 1 capsule. U nivers 200 mg 0-07 ity of capsule 00:00: [facility] atorvastati 2021-03 Yes 40mg 0.5 Univer s n 80 mg 0-07 tablets. ity of tablet 00:00: [facility] cyanocobala 2021-03 Yes INJECT 1 Un chen min 1,000 0-07 ML ity of mcg/mL 00:00: INTRAMUSCU [place] injection 00 LARLY Medical EVERY Branch MONTH FOR ANEMIA finasteride 2021-03 Yes 5mg 1 tablet. U nivers 5 mg tablet 0-07 ity of 00:00: [facility] oxyBUTYnin 2021-03 Yes 5mg 1 tablet. Un chen chloride 5 0-07 ity of mg tablet 00:00: [facility] acyclovir 2021-03 Yes 200mg 1 capsule. U nivers 200 mg 0-07 ity of capsule 00:00: [facility] atorvastati 2021-03 Yes 40mg 0.5 Univer s n 80 mg 0-07 tablets. ity of tablet 00:00: [facility] cyanocobala 2021-03 Yes INJECT 1 Un chen min 1,000 0-07 ML ity of mcg/mL 00:00: INTRAMUSCU [place] injection LARLY Medical EVERY Branch MONTH FOR ANEMIA finasteride 2021-03 Yes 5mg 1 tablet. U nivers 5 mg tablet 0-07 ity of 00:00: [facility] oxyBUTYnin 2021-03 Yes 5mg 1 tablet. Un chen chloride 5 0-07 ity of mg tablet 00:00: [place] [facility] acyclovir 2021-03 Yes 200mg 1 capsule. U nivers 200 mg 0-07 ity of capsule 00:00: [facility] atorvastati 2021-03 Yes 40mg 0.5 Univer s n 80 mg 0-07 tablets. ity of tablet 00:00: [facility] cyanocobala 2021-03 Yes INJECT 1 Un chen min 1,000 0-07 ML ity of mcg/mL 00:00: INTRAMUSCU [place] injection LARLY Medical EVERY Branch MONTH FOR ANEMIA finasteride 2021-03 Yes 5mg 1 tablet. U nivers 5 mg tablet 0-07 ity of 00:00: [facility] oxyBUTYnin 2021-03 Yes 5mg 1 tablet. Un chen chloride 5 0-07 ity of mg tablet 00:00: [facility] acyclovir 2021-03 Yes 200mg 1 capsule. U nivers 200 mg 0-07 ity of capsule 00:00: [facility] atorvastati 2021-03 Yes 40mg 0.5 Univer s n 80 mg 0-07 tablets. ity of tablet 00:00: [facility] cyanocobala 2021-03 Yes INJECT 1 Un chen min 1,000 0-07 ML ity of mcg/mL 00:00: INTRAMUSCU [place] injection 00 LARLY Medical EVERY Branch MONTH FOR ANEMIA finasteride 2021-03 Yes 5mg 1 tablet. U nivers 5 mg tablet 0-07 ity of 00:00: [facility] oxyBUTYnin 2021-03 Yes 5mg 1 tablet. Un chen chloride 5 0-07 ity of mg tablet 00:00: [facility] acyclovir 2021-03 Yes 200mg 1 capsule. U nivers 200 mg 0-07 ity of capsule 00:00: [facility] atorvastati 2021-03 Yes 40mg 0.5 Univer s n 80 mg 0-07 tablets. ity of tablet 00:00: [facility] cyanocobala 2021-03 Yes INJECT 1 Un chen min 1,000 0-07 ML ity of mcg/mL 00:00: INTRAMUSCU [place] injection 00 LARLY Medical EVERY Branch MONTH FOR ANEMIA finasteride 2021-03 Yes 5mg 1 tablet. U nivers 5 mg tablet 0-07 ity of 00:00: [facility] oxyBUTYnin 2021-03 Yes 5mg 1 tablet. Un chen chloride 5 0-07 ity of mg tablet 00:00: [facility] acyclovir 2021-03 Yes 200mg 1 capsule. U nivers 200 mg 0-07 ity of capsule 00:00: [facility] atorvastati 2021-03 Yes 40mg 0.5 Univer s n 80 mg 0-07 tablets. ity of tablet 00:00: [facility] cyanocobala 2021-03 Yes INJECT 1 Un chen min 1,000 0-07 ML ity of mcg/mL 00:00: INTRAMUSCU [place] injection 00 LARLY Medical EVERY Branch MONTH FOR ANEMIA finasteride 2021-03 Yes 5mg 1 tablet. U nivers 5 mg tablet 0-07 ity of 00:00: [facility] oxyBUTYnin 2021-03 Yes 5mg 1 tablet. Un chen chloride 5 0-07 ity of mg tablet 00:00: [facility] acyclovir 2021-03 Yes 200mg 1 capsule. U nivers 200 mg 0-07 ity of capsule 00:00: [facility] atorvastati 2021-03 Yes 40mg 0.5 Univer s n 80 mg 0-07 tablets. ity of tablet 00:00: [facility] cyanocobala 2021-03 Yes INJECT 1 Un chen min 1,000 0-07 ML ity of mcg/mL 00:00: INTRAMUSCU [place] injection 00 LARLY Medical EVERY Branch MONTH FOR ANEMIA finasteride 2021-03 Yes 5mg 1 tablet. U nivers 5 mg tablet 0-07 ity of 00:00: [facility] oxyBUTYnin 2021-03 Yes 5mg 1 tablet. Un chen chloride 5 0-07 ity of mg tablet 00:00: [facility] acyclovir 2021-03 Yes 200mg 1 capsule. U nivers 200 mg 0-07 ity of capsule 00:00: [facility] atorvastati 2021-03 Yes 40mg 0.5 Univer s n 80 mg 0-07 tablets. ity of tablet 00:00: [facility] cyanocobala 2021-03 Yes INJECT 1 Un chen min 1,000 0-07 ML ity of mcg/mL 00:00: INTRAMUSCU [place] injection 00 LARLY Medical EVERY Branch MONTH FOR ANEMIA finasteride 2021-03 Yes 5mg 1 tablet. U nivers 5 mg tablet 0-07 ity of 00:00: [facility] oxyBUTYnin 2021-03 Yes 5mg 1 tablet. Un chen chloride 5 0-07 ity of mg tablet 00:00: [facility] acyclovir 2021-03 Yes 200mg 1 capsule. U nivers 200 mg 0-07 ity of capsule 00:00: [facility] atorvastati 2021-03 Yes 40mg 0.5 Univer s n 80 mg 0-07 tablets. ity of tablet 00:00: [facility] cyanocobala 2021-03 Yes INJECT 1 Un chen min 1,000 0-07 ML ity of mcg/mL 00:00: INTRAMUSCU [place] injection 00 LARLY Medical EVERY Branch MONTH FOR ANEMIA finasteride 2021-03 Yes 5mg 1 tablet. U nivers 5 mg tablet 0-07 ity of 00:00: [facility] oxyBUTYnin 2021-03 Yes 5mg 1 tablet. Un chen chloride 5 0-07 ity of mg tablet 00:00: [facility] acyclovir 2021-03 Yes 200mg 1 capsule. U nivers 200 mg 0-07 ity of capsule 00:00: [facility] atorvastati 2021-03 Yes 40mg 0.5 Univer s n 80 mg 0-07 tablets. ity of tablet 00:00: [facility] cyanocobala 2021-03 Yes INJECT 1 Un chen min 1,000 0-07 ML ity of mcg/mL 00:00: INTRAMUSCU [place] injection [facility] MONTH FOR ANEMIA finasteride 2021-03 Yes 5mg 1 tablet. U nivers 5 mg tablet 0-07 ity of 00:00: [facility] oxyBUTYnin 2021-03 Yes 5mg 1 tablet. Un chen chloride 5 0-07 ity of mg tablet 00:00: [facility] acyclovir 2021-03 Yes 200mg 1 capsule. U nivers 200 mg 0-07 ity of capsule 00:00: [place] [facility] atorvastati 2021-03 Yes 40mg 0.5 Univer s n 80 mg 0-07 tablets. ity of tablet 00:00: [facility] cyanocobala 2021-03 Yes INJECT 1 Un chen min 1,000 0-07 ML ity of mcg/mL 00:00: INTRAMUSCU [place] injection 00 LAR Medical EVERY [place] MONTH FOR ANEMIA finasteride 2021-03 Yes 5mg 1 tablet. U nivers 5 mg tablet 0-07 ity of 00:00: [facility] oxyBUTYnin 2021-03 Yes 5mg 1 tablet. Un chen chloride 5 0-07 ity of mg tablet 00:00: [facility] acyclovir 2021-03 Yes 200mg 1 capsule. U nivers 200 mg 0-07 ity of capsule 00:00: [facility] atorvastati 2021-03 Yes 40mg 0.5 Univer s n 80 mg 0-07 tablets. ity of tablet 00:00: [facility] cyanocobala 2021-03 Yes INJECT 1 Un chen min 1,000 0-07 ML ity of mcg/mL 00:00: INTRAMUSCU [place] injection 00 LARLY Medical EVERY Branch MONTH FOR ANEMIA finasteride 2021-03 Yes 5mg 1 tablet. U nivers 5 mg tablet 0-07 ity of 00:00: [facility] oxyBUTYnin 2021-03 Yes 5mg 1 tablet. Un chen chloride 5 0-07 ity of mg tablet 00:00: [facility] acyclovir 2021-03 Yes 200mg 1 capsule. U nivers 200 mg 0-07 ity of capsule 00:00: [facility] atorvastati 2021-03 Yes 40mg 0.5 Univer s n 80 mg 0-07 tablets. ity of tablet 00:00: [facility] cyanocobala 2021-03 Yes INJECT 1 Un chen min 1,000 0-07 ML ity of mcg/mL 00:00: INTRAMUSCU [place] injection 00 LARLY Medical EVERY Branch MONTH FOR ANEMIA finasteride 2021-03 Yes 5mg 1 tablet. U nivers 5 mg tablet 0-07 ity of 00:00: [facility] oxyBUTYnin 2021-03 Yes 5mg 1 tablet. Un chen chloride 5 0-07 ity of mg tablet 00:00: [facility] acyclovir 2021-03 Yes 200mg 1 capsule. U nivers 200 mg 0-07 ity of capsule 00:00: [facility] atorvastati 2021-03 Yes 40mg 0.5 Univer s n 80 mg 0-07 tablets. ity of tablet 00:00: [facility] cyanocobala 2021-03 Yes INJECT 1 Un chen min 1,000 0-07 ML ity of mcg/mL 00:00: INTRAMUSCU [place] injection 00 LARLY Medical EVERY Branch MONTH FOR ANEMIA finasteride 2021-03 Yes 5mg 1 tablet. U nivers 5 mg tablet 0-07 ity of 00:00: [facility] oxyBUTYnin 2021-03 Yes 5mg 1 tablet. Un chen chloride 5 0-07 ity of mg tablet 00:00: [facility] acyclovir 2021-03 Yes 200mg 1 capsule. U nivers 200 mg 0-07 ity of capsule 00:00: [place] [facility] atorvastati 2021-03 Yes 40mg 0.5 Univer s n 80 mg 0-07 tablets. ity of tablet 00:00: [facility] cyanocobala 2021-03 Yes INJECT 1 Un chen min 1,000 0-07 ML ity of mcg/mL 00:00: INTRAMUSCU [place] injection 00 LARLY Medical EVERY Branch MONTH FOR ANEMIA finasteride 2021-03 Yes 5mg 1 tablet. U nivers 5 mg tablet 0-07 ity of 00:00: [facility] oxyBUTYnin 2021-03 Yes 5mg 1 tablet. Un chen chloride 5 0-07 ity of mg tablet 00:00: [facility] acyclovir 2021-03 Yes 200mg 1 capsule. U nivers 200 mg 0-07 ity of capsule 00:00: [facility] atorvastati 2021-03 Yes 40mg 0.5 Univer s n 80 mg 0-07 tablets. ity of tablet 00:00: [facility] cyanocobala 2021-03 Yes INJECT 1 Un chen min 1,000 0-07 ML ity of mcg/mL 00:00: INTRAMUSCU [place] injection 00 LARLY Medical EVERY Branch MONTH FOR ANEMIA finasteride 2021-03 Yes 5mg 1 tablet. U nivers 5 mg tablet 0-07 ity of 00:00: [facility] oxyBUTYnin 2021-03 Yes 5mg 1 tablet. Un chen chloride 5 0-07 ity of mg tablet 00:00: [facility] acyclovir 2021-03 Yes 200mg 1 capsule. U nivers 200 mg 0-07 ity of capsule 00:00: [facility] atorvastati 2021-03 Yes 40mg 0.5 Univer s n 80 mg 0-07 tablets. ity of tablet 00:00: [facility] cyanocobala 2021-03 Yes INJECT 1 Un chen min 1,000 0-07 ML ity of mcg/mL 00:00: INTRAMUSCU [place] injection 00 LARLY Medical EVERY Branch MONTH FOR ANEMIA finasteride 2021-03 Yes 5mg 1 tablet. U nivers 5 mg tablet 0-07 ity of 00:00: [facility] oxyBUTYnin 2021-03 Yes 5mg 1 tablet. Un chen chloride 5 0-07 ity of mg tablet 00:00: [facility] acyclovir 2021-03 Yes 200mg 1 capsule. U nivers 200 mg 0-07 ity of capsule 00:00: [facility] atorvastati 2021-03 Yes 40mg 0.5 Univer s n 80 mg 0-07 tablets. ity of tablet 00:00: [facility] cyanocobala 2021-03 Yes INJECT 1 Un chen min 1,000 0-07 ML ity of mcg/mL 00:00: INTRAMUSCU [place] injection 00 LARLY Medical EVERY Branch MONTH FOR ANEMIA finasteride 2021-03 Yes 5mg 1 tablet. U nivers 5 mg tablet 0-07 ity of 00:00: [facility] oxyBUTYnin 2021-03 Yes 5mg 1 tablet. Un chen chloride 5 0-07 ity of mg tablet 00:00: [facility] acyclovir 2021-03 Yes 200mg 1 capsule. U nivers 200 mg 0-07 ity of capsule 00:00: [facility] atorvastati 2021-03 Yes 40mg 0.5 Univer s n 80 mg 0-07 tablets. ity of tablet 00:00: [facility] cyanocobala 2021-03 Yes INJECT 1 Un chen min 1,000 0-07 ML ity of mcg/mL 00:00: INTRAMUSCU [place] injection 00 LARLY Medical EVERY Branch MONTH FOR ANEMIA finasteride 2021-03 Yes 5mg 1 tablet. U nivers 5 mg tablet 0-07 ity of 00:00: 00 [facility] metoprolol 2021-2022- No 25mg 0.5 Univer s tartrate 50 0-07 04-09 tablets. ity of mg tablet 00:00: 00:00 [place] 00 :00 [facility] metoprolol 2021-2022- No 25mg 0.5 Univer s tartrate 50 0-07 04-09 tablets. ity of mg tablet 00:00: 00:00 [place] 00 :00 [facility] dimethyl 2021-0 Yes 240mg 1 capsule. Un chen fumarate 8-19 ity of 240 mg 00:00: [place] capsule 00 [facility] dimethyl 2-0 Yes 240mg 1 capsule. Un chen fumarate 8-19 ity of 240 mg 00:00: [place] capsule 00 [facility] dimethyl 2022-0 Yes 240mg 1 capsule. Un chen fumarate 8-19 ity of 240 mg 00:00: [place] capsule 00 [facility] dimethyl 2022-0 Yes 240mg 1 capsule. Un chen fumarate 8-19 ity of 240 mg 00:00: [place] capsule 00 [facility] dimethyl 2022-0 Yes 240mg 1 capsule. Un chen fumarate 8-19 ity of 240 mg 00:00: [place] capsule 00 [facility] dimethyl 2022-0 Yes 240mg 1 capsule. Un chen fumarate 8-19 ity of 240 mg 00:00: [place] capsule 00 [facility] dimethyl 2022-0 Yes 240mg 1 capsule. Un chen fumarate 8-19 ity of 240 mg 00:00: [place] capsule 00 [facility] dimethyl 2022-0 Yes 240mg 1 capsule. Un chen fumarate 8-19 ity of 240 mg 00:00: [place] capsule 00 [facility] dimethyl 2022-0 Yes 240mg 1 capsule. Un chen fumarate 8-19 ity of 240 mg 00:00: [place] capsule 00 [facility] dimethyl 2022-0 Yes 240mg 1 capsule. Un chen fumarate 8-19 ity of 240 mg 00:00: [place] capsule 00 [facility] dimethyl 2022-0 Yes 240mg 1 capsule. Un chen fumarate 8-19 ity of 240 mg 00:00: [place] capsule 00 [facility] dimethyl 2022-0 Yes 240mg 1 capsule. Un chen fumarate 8-19 ity of 240 mg 00:00: [place] capsule 00 [facility] dimethyl 2022-0 Yes 240mg 1 capsule. Un chen fumarate 8-19 ity of 240 mg 00:00: [place] capsule 00 [facility] dimethyl 2022-0 Yes 240mg 1 capsule. Un chen fumarate 8-19 ity of 240 mg 00:00: [place] capsule 00 [facility] dimethyl 2022-0 Yes 240mg 1 capsule. Un chen fumarate 8-19 ity of 240 mg 00:00: [place] capsule 00 [facility] dimethyl 2022-0 Yes 240mg 1 capsule. Un chen fumarate 8-19 ity of 240 mg 00:00: [place] capsule 00 [facility] dimethyl 2022-0 Yes 240mg 1 capsule. Un chen fumarate 8-19 ity of 240 mg 00:00: [place] capsule 00 [facility] dimethyl 2022-0 Yes 240mg 1 capsule. Un chen fumarate 8-19 ity of 240 mg 00:00: [place] capsule 00 [facility] dimethyl 2022-0 Yes 240mg 1 capsule. Un chen fumarate 8-19 ity of 240 mg 00:00: [place] capsule 00 [facility] dimethyl 2022-0 Yes 240mg 1 capsule. Un chen fumarate 8-19 ity of 240 mg 00:00: [place] capsule 00 [facility] dimethyl 2022-0 Yes 240mg 1 capsule. Un chen fumarate 8-19 ity of 240 mg 00:00: [place] capsule 00 [facility] dimethyl 2022-0 Yes 240mg 1 capsule. Un chen fumarate 8-19 ity of 240 mg 00:00: [place] capsule 00 [facility] dimethyl 2022-0 Yes 240mg 1 capsule. Un chen fumarate 8-19 ity of 240 mg 00:00: [place] capsule 00 [facility] dimethyl 2022-0 Yes 240mg 1 capsule. Un chen fumarate 8-19 ity of 240 mg 00:00: [place] capsule 00 [facility] dimethyl 2022-0 Yes 240mg 1 capsule. Un chen fumarate 8-19 ity of 240 mg 00:00: [place] capsule 00 [facility] dimethyl 2022-0 Yes 240mg 1 capsule. Un chen fumarate 8-19 ity of 240 mg 00:00: [place] capsule 00 [facility] dimethyl 2022-0 Yes 240mg 1 capsule. Un chen fumarate 8-19 ity of 240 mg 00:00: [place] capsule 00 [facility] dimethyl 2022-0 Yes 240mg 1 capsule. Un chen fumarate 8-19 ity of 240 mg 00:00: [place] capsule 00 [facility] dimethyl 2022-0 Yes 240mg 1 capsule. Un chen fumarate 8-19 ity of 240 mg 00:00: [place] capsule 00 [facility] dimethyl 2022-0 Yes 240mg 1 capsule. Un chen fumarate 8-19 ity of 240 mg 00:00: [place] capsule 00 [facility] dimethyl 2022-0 Yes 240mg 1 capsule. Un chen fumarate 8-19 ity of 240 mg 00:00: [place] capsule 00 [facility] dimethyl 2022-0 Yes 240mg 1 capsule. Un chen fumarate 8-19 ity of 240 mg 00:00: [place] capsule 00 [facility] dimethyl 2022-0 Yes 240mg 1 capsule. Un chen fumarate 8-19 ity of 240 mg 00:00: [place] capsule 00 [facility] dimethyl 2022-0 Yes 240mg 1 capsule. Un chen fumarate 8-19 ity of 240 mg 00:00: [place] capsule 00 [facility] dimethyl 2022-0 Yes 240mg 1 capsule. Un chen fumarate 8-19 ity of 240 mg 00:00: [place] capsule 00 [facility] dimethyl 2022-0 Yes 240mg 1 capsule. Un chen fumarate 8-19 ity of 240 mg 00:00: [place] capsule 00 [facility] dimethyl 2022-0 Yes 240mg 1 capsule. Un chen fumarate 8-19 ity of 240 mg 00:00: [place] capsule 00 [facility] dimethyl 2022-0 Yes 240mg 1 capsule. Un chen fumarate 8-19 ity of 240 mg 00:00: [place] capsule 00 [facility] dimethyl 2022-0 Yes 240mg 1 capsule. Un chen fumarate 8-19 ity of 240 mg 00:00: [place] capsule 00 [facility] dimethyl 2022-0 Yes 240mg 1 capsule. Un chen fumarate 8-19 ity of 240 mg 00:00: [place] capsule 00 [facility] dimethyl 2022-0 Yes 240mg 1 capsule. Un chen fumarate 8-19 ity of 240 mg 00:00: [place] capsule 00 [facility] dimethyl 2022-0 Yes 240mg 1 capsule. Un chen fumarate 8-19 ity of 240 mg 00:00: [place] capsule 00 [facility] dimethyl 2022-0 Yes 240mg 1 capsule. Un chen fumarate 8-19 ity of 240 mg 00:00: [place] capsule 00 [facility] dimethyl 2022-0 Yes 240mg 1 capsule. Un chen fumarate 8-19 ity of 240 mg 00:00: [place] capsule 00 [facility] dimethyl 2022-0 Yes 240mg 1 capsule. Un chen fumarate 8-19 ity of 240 mg 00:00: [place] capsule 00 [facility] dimethyl 2022-0 Yes 240mg 1 capsule. Un chen fumarate 8-19 ity of 240 mg 00:00: [place] capsule 00 [facility] latanoprost 0 Yes INSTILL 1 U nivers 0.005 % 8-18 DROP IN [facility] of ophthalmic 00:00: BOTH EYES [place] drops 00 EVERY Medical EVENING Branch FOR GLAUCOMA timolol 0 Yes INSTILL 1 Unive rs 0.25 % 8-18 DROP IN [facility]y of ophthalmic 00:00: BOTH EYES [place] solution 00 EVERY Medical MORNING Branch FOR GLAUCOMA brinzolamid 0 Yes INSTILL 1 U nivers e-brimonidi 8-18 DROP IN ity o f ne 1-0.2 % 00:00: EYE THREE [place] [facility] 00 TIMES A Med[facility] drops DAY TO Branch AFFECTED EYE(S) latanoprost 2021-0 Yes INSTILL 1 U nivers 0.005 % 8-18 DROP IN [facility] of ophthalmic 00:00: BOTH EYES [place] drops 00 EVERY Medical EVENING [facility] FOR GLAUCOMA timolol 0 Yes INSTILL 1 Unive rs 0.25 % 8-18 DROP IN [facility] of ophthalmic 00:00: BOTH EYES [place] solution 00 EVERY Medical MORNING Branch FOR GLAUCOMA brinzolamid 0 Yes INSTILL 1 U nivers e-brimonidi 8-18 DROP IN ity o f ne 1-0.2 % 00:00: E[facility] THREE [place] [facility] 00 TIMES A Medica [facility] drops DAY TO Branch AFFECTED EYE(S) latanoprost 0 Yes INSTILL 1 U nivers 0.005 % 8-18 DROP IN [facility] of ophthalmic 00:00: BOTH EYES [place] drops 00 EVERY Medical EVENING Branch FOR GLAUCOMA timolol 0 Yes INSTILL 1 Unive rs 0.25 % 8-18 DROP IN [facility] of ophthalmic 00:00: BOTH EYES [place] solution 00 EVERY Medical MORNING Branch FOR GLAUCOMA brinzolamid 0 Yes INSTILL 1 U nivers e-brimonidi 8-18 DROP IN ity o f ne 1-0.2 % 00:00: E[facility] THREE [place] [facility] 00 TIMES A Medica [facility] drops DAY TO Branch AFFECTED EYE(S) latanoprost 2021-0 Yes INSTILL 1 U nivers 0.005 % 8-18 DROP IN [facility] of ophthalmic 00:00: BOTH EYES [place] drops 00 EVERY [facility] EVENING [facility] FOR GLAUCOMA timolol 2021-0 Yes INSTILL 1 Unive rs 0.25 % 8-18 DROP IN [facility] of ophthalmic 00:00: BOTH EYES [place] solution 00 EVERY Medical MORNING Branch FOR GLAUCOMA brinzolamid 0 Yes INSTILL 1 U nivers e-brimonidi 8-18 DROP IN ity o f ne 1-0.2 % 00:00: E[facility] THREE [place] [facility] 00 TIMES A Medica [facility] drops DAY TO Branch AFFECTED EYE(S) latanoprost 0 Yes INSTILL 1 U nivers 0.005 % 8-18 DROP IN [facility]y of ophthalmic 00:00: BOTH EYES [place] drops 00 EVERY Medical EVENING [facility] FOR GLAUCOMA timolol 0 Yes INSTILL 1 Unive rs 0.25 % 8-18 DROP IN [facility]y of ophthalmic 00:00: BOTH EYES [place] solution 00 EVERY Medical MORNING Branch FOR GLAUCOMA brinzolamid 0 Yes INSTILL 1 U nivers e-brimonidi 8-18 DROP IN ity o f ne 1-0.2 % 00:00: E[facility] THREE [place] [facility] 00 TIMES A Medica l drops DAY TO Branch AFFECTED EYE(S) latanoprost 0 Yes INSTILL 1 U nivers 0.005 % 8-18 DROP IN [facility] of ophthalmic 00:00: BOTH EYES [place] drops 00 EVERY Medical EVENING Branch FOR GLAUCOMA timolol Yes INSTILL 1 Unive rs 0.25 % 8-18 DROP IN [facility]y of ophthalmic 00:00: BOTH EYES [place] solution 00 EVERY Medical MORNING Branch FOR GLAUCOMA brinzolamid 0 Yes INSTILL 1 U nivers e-brimonidi 8-18 DROP IN ity o f ne 1-0.2 % 00:00: E[facility] THREE [place] [facility] 00 TIMES A Medica [facility] drops DAY TO Branch AFFECTED EYE(S) latanoprost 0 Yes INSTILL 1 U nivers 0.005 % 8-18 DROP IN [facility] ophthalmic 00:00: BOTH EYES [place] drops 00 EVERY Medical EVENING Branch FOR GLAUCOMA timolol 0 Yes INSTILL 1 Unive rs 0.25 % 8-18 DROP IN [facility] of ophthalmic 00:00: BOTH EYES [place] solution 00 EVERY [facility] MORNING Branch FOR GLAUCOMA brinzolamid 0 Yes INSTILL 1 U nivers e-brimonidi 8-18 DROP IN ity o f ne 1-0.2 % 00:00: E[facility] THREE [place] [facility] 00 TIMES A Medica [facility] drops DAY TO Branch AFFECTED EYE(S) latanoprost 0 Yes INSTILL 1 U nivers 0.005 % 8-18 DROP IN [facility] of ophthalmic 00:00: BOTH EYES [place] drops 00 EVERY [facility] EVENING Branch FOR GLAUCOMA timolol 0 Yes INSTILL 1 Unive rs 0.25 % 8-18 DROP IN [facility]y of ophthalmic 00:00: BOTH EYES [place] solution 00 EVERY Medical MORNING Branch FOR GLAUCOMA brinzolamid 0 Yes INSTILL 1 U nivers e-brimonidi 8-18 DROP IN ity o f ne 1-0.2 % 00:00: E[facility] THREE [place] [facility] 00 TIMES A Medica [facility] drops DAY TO Branch AFFECTED EYE(S) brinzolamid 0 Yes INSTILL 1 U nivers e-brimonidi 8-18 DROP IN ity o f ne 1-0.2 % 00:00: E[facility] THREE [place] [facility] 00 TIMES A Medica [facility] drops DAY TO Branch AFFECTED EYE(S) latanoprost 0 Yes INSTILL 1 U nivers 0.005 % 8-18 DROP IN [facility] of ophthalmic 00:00: BOTH EYES [place] drops 00 EVERY [facility] EVENING Branch FOR GLAUCOMA timolol 0 Yes INSTILL 1 Unive rs 0.25 % 8-18 DROP IN [facility] of ophthalmic 00:00: BOTH EYES [place] solution 00 EVERY [facility] MORNING Branch FOR GLAUCOMA brinzolamid 0 Yes INSTILL 1 U nivers e-brimonidi 8-18 DROP IN ity o f ne 1-0.2 % 00:00: E[facility] THREE [place] [facility] 00 TIMES A Medica l drops DAY TO Branch AFFECTED EYE(S) latanoprost 0 Yes INSTILL 1 U nivers 0.005 % 8-18 DROP IN [facility] of ophthalmic 00:00: BOTH EYES [place] drops 00 EVERY [facility] EVENING [facility] FOR GLAUCOMA timolol 0 Yes INSTILL 1 Unive rs 0.25 % 8-18 DROP IN [facility]y of ophthalmic 00:00: BOTH EYES [place] solution 00 EVERY [facility] MORNING [facility] FOR GLAUCOMA brinzolamid 0 Yes INSTILL 1 U nivers e-brimonidi 8-18 DROP IN ity o f ne 1-0.2 % 00:00: E[facility] THREE [place] [facility] 00 TIMES A Medica l drops DAY TO Branch AFFECTED EYE(S) latanoprost 2021-0 Yes INSTILL 1 U nivers 0.005 % 8-18 DROP IN [facility] ophthalmic 00:00: BOTH EYES [place] drops 00 EVERY [facility] EVENING [facility] FOR GLAUCOMA timolol 0 Yes INSTILL 1 Unive rs 0.25 % 8-18 DROP IN [facility] of ophthalmic 00:00: BOTH EYES [place] solution 00 EVERY [facility] MORNING [facility] FOR GLAUCOMA latanoprost 0 Yes INSTILL 1 U nivers 0.005 % 8-18 DROP IN [facility] of ophthalmic 00:00: BOTH EYES [place] drops 00 EVERY [facility] EVENING [facility] FOR GLAUCOMA brinzolamid 0 Yes INSTILL 1 U nivers e-brimonidi 8-18 DROP IN ity o f ne 1-0.2 % 00:00: E[facility] THREE [place] [facility] 00 TIMES A Medica l drops DAY TO Branch AFFECTED EYE(S) latanoprost 0 Yes INSTILL 1 U nivers 0.005 % 8-18 DROP IN [facility] ophthalmic 00:00: BOTH EYES [place] drops 00 EVERY [facility] EVENING Branch FOR GLAUCOMA timolol 0 Yes INSTILL 1 Unive rs 0.25 % 8-18 DROP IN [facility] of ophthalmic 00:00: BOTH EYES [place] solution 00 EVERY [facility] MORNING Branch FOR GLAUCOMA brinzolamid 0 Yes INSTILL 1 U nivers e-brimonidi 8-18 DROP IN ity o f ne 1-0.2 % 00:00: E[facility] THREE [place] [facility] 00 TIMES A Medica l drops DAY TO Branch AFFECTED EYE(S) latanoprost 0 Yes INSTILL 1 U nivers 0.005 % 8-18 DROP IN [facility] ophthalmic 00:00: BOTH EYES [place] drops 00 EVERY [facility] EVENING Branch FOR GLAUCOMA timolol 2021-0 Yes INSTILL 1 Unive rs 0.25 % 8-18 DROP IN [facility] of ophthalmic 00:00: BOTH EYES [place] solution 00 EVERY [facility] MORNING Branch FOR GLAUCOMA timolol 2021-0 Yes INSTILL 1 Unive rs 0.25 % 8-18 DROP IN [facility]y of ophthalmic 00:00: BOTH EYES [place] solution 00 EVERY [facility] MORNING Branch FOR GLAUCOMA brinzolamid 0 Yes INSTILL 1 U nivers e-brimonidi 8-18 DROP IN ity o f ne 1-0.2 % 00:00: E[facility] THREE [place] [facility] 00 TIMES A Med[facility] drops DAY TO Branch AFFECTED EYE(S) latanoprost 0 Yes INSTILL 1 U nivers 0.005 % 8-18 DROP IN [facility] ophthalmic 00:00: BOTH EYES [place] drops 00 EVERY [facility] EVENING Branch FOR GLAUCOMA timolol Yes INSTILL 1 Unive rs 0.25 % 8-18 DROP IN [facility] of ophthalmic 00:00: BOTH EYES [place] solution 00 EVERY [facility] MORNING Branch FOR GLAUCOMA brinzolamid Yes INSTILL 1 U nivers e-brimonidi 8-18 DROP IN ity o f ne 1-0.2 % 00:00: E[facility] THREE [place] [facility] 00 TIMES A Med[facility] drops DAY TO Branch AFFECTED EYE(S) latanoprost Yes INSTILL 1 U nivers 0.005 % 8-18 DROP IN [facility] ophthalmic 00:00: BOTH EYES [place] drops 00 EVERY [facility] EVENING Branch FOR GLAUCOMA timolol Yes INSTILL 1 Unive rs 0.25 % 8-18 DROP IN [facility] of ophthalmic 00:00: BOTH EYES [place] solution 00 EVERY [facility] MORNING Branch FOR GLAUCOMA brinzolamid 0 Yes INSTILL 1 U nivers e-brimonidi 8-18 DROP IN ity o f ne 1-0.2 % 00:00: E[facility] THREE [place] [facility] 00 TIMES A Med[facility] drops DAY TO Branch AFFECTED EYE(S) latanoprost 0 Yes INSTILL 1 U nivers 0.005 % 8-18 DROP IN [facility] ophthalmic 00:00: BOTH EYES [place] drops 00 EVERY [facility] EVENING [facility] FOR GLAUCOMA timolol 0 Yes INSTILL 1 Unive rs 0.25 % 8-18 DROP IN [facility]y of ophthalmic 00:00: BOTH EYES [place] solution 00 EVERY [facility] MORNING [facility] FOR GLAUCOMA brinzolamid 0 Yes INSTILL 1 U nivers e-brimonidi 8-18 DROP IN ity o f ne 1-0.2 % 00:00: E[facility] THREE [place] [facility] 00 TIMES A Med[facility] drops DAY TO Branch AFFECTED EYE(S) latanoprost 0 Yes INSTILL 1 U nivers 0.005 % 8-18 DROP IN [facility] ophthalmic 00:00: BOTH EYES [place] drops 00 EVERY [facility] EVENING [facility] FOR GLAUCOMA timolol 0 Yes INSTILL 1 Unive rs 0.25 % 8-18 DROP IN [facility] of ophthalmic 00:00: BOTH EYES [place] solution 00 EVERY [facility] MORNING [facility] FOR GLAUCOMA brinzolamid 0 Yes INSTILL 1 U nivers e-brimonidi 8-18 DROP IN ity o f ne 1-0.2 % 00:00: [facility] THREE [place] [facility] 00 TIMES A Med[facility] drops DAY TO Branch AFFECTED EYE(S) latanoprost 0 Yes INSTILL 1 U nivers 0.005 % 8-18 DROP IN [facility] ophthalmic 00:00: BOTH EYES [place] drops 00 EVERY [facility] EVENING [facility] FOR GLAUCOMA timolol Yes INSTILL 1 Unive rs 0.25 % 8-18 DROP IN [facility] ophthalmic 00:00: BOTH EYES [place] solution 00 EVERY [facility] MORNING [facility] FOR GLAUCOMA brinzolamid Yes INSTILL 1 U nivers e-brimonidi 8-18 DROP IN ity o f ne 1-0.2 % 00:00: [facility] THREE [place] [facility] 00 TIMES A Med[facility] drops DAY TO Branch AFFECTED EYE(S) latanoprost 0 Yes INSTILL 1 U nivers 0.005 % 8-18 DROP IN [facility] ophthalmic 00:00: BOTH EYES [place] drops 00 EVERY [facility] EVENING [facility] FOR GLAUCOMA timolol Yes INSTILL 1 Unive rs 0.25 % 8-18 DROP IN [facility] ophthalmic 00:00: BOTH EYES [place] solution 00 EVERY [facility] MORNING [facility] FOR GLAUCOMA brinzolamid 0 Yes INSTILL 1 U nivers e-brimonidi 8-18 DROP IN ity o f ne 1-0.2 % 00:00: [facility] THREE [place] [facility] 00 TIMES A Med[facility] drops DAY TO Branch AFFECTED EYE(S) latanoprost 0 Yes INSTILL 1 U nivers 0.005 % 8-18 DROP IN [facility] ophthalmic 00:00: BOTH EYES [place] drops 00 EVERY [facility] EVENING [facility] FOR GLAUCOMA timolol 2022-0 Yes INSTILL 1 Unive rs 0.25 % 8-18 DROP IN [facility] ophthalmic 00:00: BOTH EYES [place] solution 00 EVERY [facility] MORNING [facility] FOR GLAUCOMA brinzolamid 0 Yes INSTILL 1 U nivers e-brimonidi 8-18 DROP IN ity o f ne 1-0.2 % 00:00: E[facility] THREE [place] [facility] 00 TIMES A Med[facility] drops DAY TO Branch AFFECTED EYE(S) latanoprost 0 Yes INSTILL 1 U nivers 0.005 % 8-18 DROP IN [facility] ophthalmic 00:00: BOTH EYES [place] drops 00 EVERY [facility] EVENING [facility] FOR GLAUCOMA timolol Yes INSTILL 1 Unive rs 0.25 % 8-18 DROP IN [facility] ophthalmic 00:00: BOTH EYES [place] solution 00 EVERY [facility] MORNING Branch FOR GLAUCOMA brinzolamid Yes INSTILL 1 U nivers e-brimonidi 8-18 DROP IN ity o f ne 1-0.2 % 00:00: E[facility] THREE [place] [facility] 00 TIMES A Med[facility] drops DAY TO Branch AFFECTED EYE(S) latanoprost 0 Yes INSTILL 1 U nivers 0.005 % 8-18 DROP IN [facility] ophthalmic 00:00: BOTH EYES [place] drops 00 EVERY [facility] EVENING Branch FOR GLAUCOMA timolol Yes INSTILL 1 Unive rs 0.25 % 8-18 DROP IN [facility] ophthalmic 00:00: BOTH EYES [place] solution 00 EVERY [facility] MORNING Branch FOR GLAUCOMA brinzolamid 0 Yes INSTILL 1 U nivers e-brimonidi 8-18 DROP IN ity o f ne 1-0.2 % 00:00: E[facility] THREE [place] [facility] 00 TIMES A Med[facility] drops DAY TO Branch AFFECTED EYE(S) latanoprost 0 Yes INSTILL 1 U nivers 0.005 % 8-18 DROP IN [facility] ophthalmic 00:00: BOTH EYES [place] drops 00 EVERY [facility] EVENING Branch FOR GLAUCOMA timolol 0 Yes INSTILL 1 Unive rs 0.25 % 8-18 DROP IN [facility] ophthalmic 00:00: BOTH EYES [place] solution 00 EVERY [facility] MORNING Branch FOR GLAUCOMA brinzolamid 2022-0 Yes INSTILL 1 U nivers e-brimonidi 8-18 DROP IN ity o f ne 1-0.2 % 00:00: E[facility] THREE [place] [facility] 00 TIMES A Med[facility] drops DAY TO Branch AFFECTED EYE(S) latanoprost 0 Yes INSTILL 1 U nivers 0.005 % 8-18 DROP IN [facility] ophthalmic 00:00: BOTH EYES [place] drops 00 EVERY [facility] EVENING Branch FOR GLAUCOMA timolol Yes INSTILL 1 Unive rs 0.25 % 8-18 DROP IN [facility] ophthalmic 00:00: BOTH EYES [place] solution 00 EVERY [facility] MORNING Branch FOR GLAUCOMA brinzolamid Yes INSTILL 1 U nivers e-brimonidi 8-18 DROP IN ity o f ne 1-0.2 % 00:00: E[facility] THREE [place] [facility] 00 TIMES A Med[facility] drops DAY TO Branch AFFECTED EYE(S) latanoprost 0 Yes INSTILL 1 U nivers 0.005 % 8-18 DROP IN [facility] ophthalmic 00:00: BOTH EYES [place] drops 00 EVERY [facility] EVENING Branch FOR GLAUCOMA timolol Yes INSTILL 1 Unive rs 0.25 % 8-18 DROP IN [facility] ophthalmic 00:00: BOTH EYES [place] solution 00 EVERY [facility] MORNING Branch FOR GLAUCOMA brinzolamid Yes INSTILL 1 U nivers e-brimonidi 8-18 DROP IN ity o f ne 1-0.2 % 00:00: [facility] THREE [place] [facility] 00 TIMES A Med[facility] drops DAY TO Branch AFFECTED EYE(S) latanoprost 0 Yes INSTILL 1 U nivers 0.005 % 8-18 DROP IN [facility] ophthal[facility] 00:00: BOTH EYES [place] drops 00 EVERY [facility] EVENING Branch FOR GLAUCOMA timolol 0 Yes INSTILL 1 Unive rs 0.25 % 8-18 DROP IN [facility] ophthalmic 00:00: BOTH EYES [place] solution 00 EVERY [facility] MORNING Branch FOR GLAUCOMA brinzolamid 0 Yes INSTILL 1 U nivers e-brimonidi 8-18 DROP IN ity o f ne 1-0.2 % 00:00: E[facility] THREE [place] [facility] 00 TIMES A Med[facility] drops DAY TO Branch AFFECTED EYE(S) latanoprost 2021-0 Yes INSTILL 1 U nivers 0.005 % 8-18 DROP IN [facility] ophthalmic 00:00: BOTH EYES [place] drops 00 EVERY [facility] EVENING [facility] FOR GLAUCOMA timolol 0 Yes INSTILL 1 Unive rs 0.25 % 8-18 DROP IN [facility] ophthalmic 00:00: BOTH EYES [place] solution 00 EVERY [facility] MORNING Branch FOR GLAUCOMA brinzolamid 0 Yes INSTILL 1 U nivers e-brimonidi 8-18 DROP IN ity o f ne 1-0.2 % 00:00: E[facility] THREE [place] [facility] 00 TIMES A Med[facility] drops DAY TO Branch AFFECTED EYE(S) latanoprost 0 Yes INSTILL 1 U nivers 0.005 % 8-18 DROP IN [facility] ophthal[facility] 00:00: BOTH EYES [place] drops 00 EVERY [facility] EVENING [facility] FOR GLAUCOMA timolol 0 Yes INSTILL 1 Unive rs 0.25 % 8-18 DROP IN [facility] ophthalmic 00:00: BOTH EYES [place] solution 00 EVERY [facility] MORNING Branch FOR GLAUCOMA brinzolamid 0 Yes INSTILL 1 U nivers e-brimonidi 8-18 DROP IN ity o f ne 1-0.2 % 00:00: E[facility] THREE [place] [facility] 00 TIMES A Med[facility] drops DAY TO Branch AFFECTED EYE(S) latanoprost 0 Yes INSTILL 1 U nivers 0.005 % 8-18 DROP IN [facility] ophthal[facility] 00:00: BOTH EYES [place] drops 00 EVERY [facility] EVENING [facility] FOR GLAUCOMA timolol 0 Yes INSTILL 1 Unive rs 0.25 % 8-18 DROP IN [facility] ophthalmic 00:00: BOTH EYES [place] solution 00 EVERY [facility] MORNING Branch FOR GLAUCOMA brinzolamid 0 Yes INSTILL 1 U nivers e-brimonidi 8-18 DROP IN ity o f ne 1-0.2 % 00:00: E[facility] THREE [place] [facility] 00 TIMES A Med[facility] drops DAY TO Branch AFFECTED EYE(S) latanoprost 2021-0 Yes INSTILL 1 U nivers 0.005 % 8-18 DROP IN [facility] ophthal[facility] 00:00: BOTH EYES [place] drops 00 EVERY [facility] EVENING [facility] FOR GLAUCOMA timolol 0 Yes INSTILL 1 Unive rs 0.25 % 8-18 DROP IN [facility] ophthalmic 00:00: BOTH EYES [place] solution 00 EVERY [facility] MORNING Branch FOR GLAUCOMA brinzolamid 0 Yes INSTILL 1 U nivers e-brimonidi 8-18 DROP IN ity o f ne 1-0.2 % 00:00: E[facility] THREE [place] [facility] 00 TIMES A Med[facility] drops DAY TO Branch AFFECTED EYE(S) latanoprost 0 Yes INSTILL 1 U nivers 0.005 % 8-18 DROP IN [facility] ophthal[facility] 00:00: BOTH EYES [place] drops 00 EVERY [facility] EVENING [facility] FOR GLAUCOMA timolol 0 Yes INSTILL 1 Unive rs 0.25 % 8-18 DROP IN [facility] ophthal[facility] 00:00: BOTH EYES [place] solution 00 EVERY [facility] MORNING Branch FOR GLAUCOMA brinzolamid 0 Yes INSTILL 1 U nivers e-brimonidi 8-18 DROP IN ity o f ne 1-0.2 % 00:00: E[facility] THREE [place] [facility] 00 TIMES A Med[facility] drops DAY TO Branch AFFECTED EYE(S) latanoprost 0 Yes INSTILL 1 U nivers 0.005 % 8-18 DROP IN [facility] ophthal[facility] 00:00: BOTH EYES [place] [facility] 00 EVERY [facility] EVENING [facility] FOR GLAUCOMA timolol 0 Yes INSTILL 1 Unive rs 0.25 % 8-18 DROP IN [facility] ophthalmic 00:00: BOTH EYES [place] solution 00 EVERY [facility] MORNING Branch FOR GLAUCOMA brinzolamid 0 Yes INSTILL 1 U nivers e-brimonidi 8-18 DROP IN ity o f ne 1-0.2 % 00:00: E[facility] [place] [facility] 00 TIMES A Med[facility] drops DAY TO Branch AFFECTED EYE(S) latanoprost 2021-0 Yes INSTILL 1 U nivers 0.005 % 8-18 DROP IN [facility] ophthal[facility] 00:00: BOTH EYES [place] [facility] 00 EVERY [facility] EVENING [facility] FOR GLAUCOMA timolol 0 Yes INSTILL 1 Unive rs 0.25 % 8-18 DROP IN [facility] ophthal[facility] 00:00: BOTH EYES [place] [facility] 00 EVERY [facility] MORNING Branch FOR GLAUCOMA brinzolamid Yes INSTILL 1 U nivers e-brimonidi 8-18 DROP IN ity o f ne 1-0.2 % 00:00: E[facility] THREE [place] [facility] 00 TIMES A Med[facility] drops DAY TO Branch AFFECTED EYE(S) latanoprost 0 Yes INSTILL 1 U nivers 0.005 % 8-18 DROP IN [facility] 00:00: BOTH EYES [place] [facility] 00 EVERY [facility] EVENING [facility] FOR GLAUCOMA timolol Yes INSTILL 1 Unive rs 0.25 % 8-18 DROP IN [facility] ophthal[facility] 00:00: BOTH EYES [place] [facility] 00 EVERY [facility] MORNING [facility] FOR GLAUCOMA brinzolamid Yes INSTILL 1 U nivers e-brimonidi 8-18 DROP IN ity o f ne 1-0.2 % 00:00: [facility] [place] [facility] 00 TIMES A Med[facility] drops DAY TO Branch AFFECTED EYE(S) latanoprost Yes INSTILL 1 U nivers 0.005 % 8-18 DROP IN [facility] 00:00: BOTH EYES [place] [facility] 00 EVERY [facility] EVENING [facility] FOR GLAUCOMA timolol Yes INSTILL 1 Unive rs 0.25 % 8-18 DROP IN [facility] ophthal[facility] 00:00: BOTH EYES [place] [facility] 00 EVERY [facility] MORNING [facility] FOR GLAUCOMA brinzolamid 0 Yes INSTILL 1 U nivers e-brimonidi 8-18 DROP IN ity o f ne 1-0.2 % 00:00: [facility] [place] [facility] 00 TIMES A Med[facility] drops DAY TO Branch AFFECTED EYE(S) latanoprost 0 Yes INSTILL 1 U nivers 0.005 % 8-18 DROP IN [facility] 00:00: BOTH EYES [place] [facility] 00 EVERY [facility] EVENING [facility] FOR GLAUCOMA timolol 0 Yes INSTILL 1 Unive rs 0.25 % 8-18 DROP IN [facility] ophthal[facility] 00:00: BOTH EYES [place] [facility] 00 EVERY [facility] MORNING [facility] FOR GLAUCOMA brinzolamid 0 Yes INSTILL 1 U nivers e-brimonidi 8-18 DROP IN ity o f ne 1-0.2 % 00:00: [facility] [place] [facility] 00 TIMES A Med[facility] drops DAY TO Branch AFFECTED EYE(S) latanoprost 2021-0 Yes INSTILL 1 U nivers 0.005 % 8-18 DROP IN [facility] 00:00: BOTH EYES [place] [facility] 00 EVERY [facility] EVENING [facility] FOR GLAUCOMA timolol 2021-0 Yes INSTILL 1 Unive rs 0.25 % 8-18 DROP IN [facility] ophthal[facility] 00:00: BOTH EYES [place] [facility] 00 EVERY [facility] MORNING [facility] FOR GLAUCOMA brinzolamid 0 Yes INSTILL 1 U nivers e-brimonidi 8-18 DROP IN ity o f ne 1-0.2 % 00:00: [facility] [place] [facility] 00 TIMES A Med[facility] drops DAY TO Branch AFFECTED EYE(S) latanoprost 0 Yes INSTILL 1 U nivers 0.005 % 8-18 DROP IN [facility] 00:00: BOTH EYES [place] [facility] 00 EVERY [facility] EVENING [facility] FOR GLAUCOMA timolol 0 Yes INSTILL 1 Unive rs 0.25 % 8-18 DROP IN [facility] ophthal[facility] 00:00: BOTH EYES [place] [facility] 00 EVERY [facility] MORNING [facility] FOR GLAUCOMA brinzolamid 0 Yes INSTILL 1 U nivers e-brimonidi 8-18 DROP IN ity o f ne 1-0.2 % 00:00: [facility] [place] [facility] 00 TIMES A Med[facility] drops DAY TO Branch AFFECTED EYE(S) latanoprost 2021-0 Yes INSTILL 1 U nivers 0.005 % 8-18 DROP IN [facility] 00:00: BOTH EYES [place] [facility] 00 EVERY [facility] EVENING [facility] FOR GLAUCOMA timolol 0 Yes INSTILL 1 Unive rs 0.25 % 8-18 DROP IN [facility] ophthal[facility] 00:00: BOTH EYES [place] [facility] 00 EVERY [facility] MORNING Branch FOR GLAUCOMA brinzolamid 0 Yes INSTILL 1 U nivers e-brimonidi 8-18 DROP IN ity o f ne 1-0.2 % 00:00: [facility] [place] [facility] 00 TIMES A Med[facility] drops DAY TO Branch AFFECTED EYE(S) latanoprost 2021-0 Yes INSTILL 1 U nivers 0.005 % 8-18 DROP IN [facility] 00:00: B[facility] EYES [place] [facility] 00 EVERY [facility] EVENING [facility] FOR GLAUCOMA timolol 2021-0 Yes INSTILL 1 Unive rs 0.25 % 8-18 DROP IN [facility] ophthal[facility] 00:00: BOTH EYES [place] solution 00 EVERY Medical MORNING Branch FOR GLAUCOMA brinzolamid 2021-0 Yes INSTILL 1 U nivers e-brimonidi 8-18 DROP IN ity o f ne 1-0.2 % 00:00: EYE THREE [place] [facility] 00 TIMES A Medica l drops DAY TO Branch AFFECTED EYE(S) latanoprost 2021-0 Yes INSTILL 1 U nivers 0.005 % 8-18 DROP IN [facility] 00:00: BOTH EYES [place] drops 00 EVERY Medical EVENING Branch FOR GLAUCOMA timolol 2021-0 Yes INSTILL 1 Unive rs 0.25 % 8-18 DROP IN [facility] 00:00: BOTH EYES [place] [facility] 00 EVERY Medical MORNING Branch FOR GLAUCOMA brinzolamid 0 Yes INSTILL 1 U nivers e-brimonidi 8-18 DROP IN ity o f ne 1-0.2 % 00:00: EYE THREE [place] [facility] 00 TIMES A Medica l drops DAY TO Branch AFFECTED EYE(S) latanoprost 2021-0 Yes INSTILL 1 U nivers 0.005 % 8-18 DROP IN [facility] 00:00: BOTH EYES [place] drops 00 EVERY Medical EVENING Branch FOR GLAUCOMA timolol 2021-0 Yes INSTILL 1 Unive rs 0.25 % 8-18 DROP IN [facility] 00:00: BOTH EYES [place] [facility] 00 EVERY Medical MORNING Branch FOR GLAUCOMA brinzolamid 2021-0 Yes INSTILL 1 U nivers e-brimonidi 8-18 DROP IN ity o f ne 1-0.2 % 00:00: EYE [place] [facility] 00 TIMES A Medica l drops DAY TO Branch AFFECTED EYE(S) latanoprost 2021-0 Yes INSTILL 1 U nivers 0.005 % 8-18 DROP IN ity of ophthalmic 00:00: B[place] drops 00 EVERY Medical EVENING Branch FOR GLAUCOMA timolol 2021-0 Yes INSTILL 1 Unive rs 0.25 % 8-18 DROP IN ity of ophthalmic 00:00: B[place] EYES [place] solution 00 EVERY Medical MORNING Branch FOR GLAUCOMA brinzolamid Yes INSTILL 1 U nivers e-brimonidi 8-18 DROP IN ity o f ne 1-0.2 % 00:00: EYE THREE [place] [facility] 00 TIMES A Medica l drops DAY TO Branch AFFECTED EYE(S) latanoprost 0 Yes INSTILL 1 U nivers 0.005 % 8-18 DROP IN ity of ophthalmic 00:00: B[place]YES [place] drops 00 EVERY Medical EVENING Branch FOR GLAUCOMA timolol Yes INSTILL 1 Unive rs 0.25 % 8-18 DROP IN [facility]y [facility] ophthalmic 00:00: B[place]YES [place] solution 00 EVERY Medical MORNING Branch FOR GLAUCOMA brinzolamid Yes INSTILL 1 U nivers e-brimonidi 8-18 DROP IN ity o f ne 1-0.2 % 00:00: EYE THREE [place] [facility] 00 TIMES A Medica l drops DAY TO Branch AFFECTED EYE(S) latanoprost Yes INSTILL 1 U nivers 0.005 % 8-18 DROP IN [facility]y [facility] ophthalmic 00:00: B[place]YES [place] drops 00 EVERY Medical EVENING Branch FOR GLAUCOMA timolol 0 Yes INSTILL 1 Unive rs 0.25 % 8-18 DROP IN [facility]y of ophthalmic 00:00: B[place]YES [place] solution 00 EVERY Medical MORNING Branch FOR GLAUCOMA brinzolamid Yes INSTILL 1 U nivers e-brimonidi 8-18 DROP IN ity o f ne 1-0.2 % 00:00: EYE THREE [place] [facility] 00 TIMES A Medica l drops DAY TO Branch AFFECTED EYE(S) ibuprofen 2020-03- No 800mg Q.[id number] Take 800 [facility] (ADVIL,MOTR 2-30 12-[id number] [place]) 800 MG 21:53: 00:00 3D mouth 3 [facility] tablet 50 :00 (three) l times a day as needed for mild pain. ibuprofen 2020-03 No 800mg Q.[id number] Take 1 [facility] (ADVIL) 800 2-30 01-[id number] MG tablet 00:00: 05:59 3D (800 mg [facility] 00 :00 total) by l mouth 3 (three) times a day as needed for mild pain for up to 30 days. ibuprofen 2020-03- No 800mg Q.[id number] Take 1 [facility] (ADVIL) 800 2-30 -[id number] MG tablet 00:00: 05:59 3D (800 mg [facility] 00 :00 total) by l mouth 3 (three) times a day as needed for mild pain for up to 30 days. carBAMazepi 0 Yes 200mg Q.5D Take 200 [...] l tablet hours. oxybutynin 0 Yes 5mg Q.[id number] Take 5 mg [facility] (DITROPAN) 8-23 [id number] mouth [address] 5 MG tablet 12:59: 3D (three) [facility] 54 times a l day. bisacodyl 0 Yes 10mg Q24H Insert 10 Met hodi [...] st ORAL 12:59: Hospita 54 l atorvastati Yes 80mg QD Take 80 mg [facility] (LIPITOR) 8-[address] 80 MG 12:59: daily. Hospita tablet 54 l carBAMazepi Yes 200mg Q.5D Take 200 M [...] l tablet hours. oxybutynin 0 Yes 5mg Q.[id number] Take 5 mg [facility] (DITROPAN) 8- [id number] by mouth 3 st 5 MG tablet 12:59: 3D (three) [facility] 54 times a l day. bisacodyl 0 Yes 10mg Q24H Insert 10 Met [facility] (DULCOLAX) 8-[address] 10 mg 12:59: the rectum Hospit a suppository 54 daily as l needed for constipati on. albuterol 0 Yes 2.5mg Q4H Take 2.5 Met hodi [...] a drops,suspe day. Both nsion eyes dimethyl 0 Yes 240mg Q.5D Take 240 Meth jeannette fumarate 8-[address] (TECFIDERA) 12:59: mouth 2 [facility] 240 mg 54 (two) l capsule,del times a ayed day. release(DR/ EC) BABY 2020-0 Yes Take by [facility] ASPIRIN 8-[address] ORAL 12:59: Hospita 54 l atorvastati 2020-0 Yes 80mg QD Take 80 mg [facility] (LIPITOR) 8-[address] 80 MG 12:59: daily. Hospita tablet 54 l carBAMazepi 2020-0 Yes 200mg Q.5D Take 200 M ethodi [...] latanoprost Yes 1[drp] QD Administer [facility] (XALATAN) 8- [address] 0.005 % 12:59: [...] (twelve) l tablet hours. oxybutynin Yes 5mg Q.[id number] Take 5 mg [facility] (DITROPAN) 8- [id number] by mouth 3 st 5 MG tablet [...] 1[drp] Q.5D Apply 1 M ethodi e-brimonidi 8- drop to st ne 12:59: eye 2 [...] st ORAL 12:59: Hospita 54 l atorvastati Yes 80mg QD Take 80 mg [facility] (LIPITOR) 8-[address] 80 MG 12:59: daily. Hospita tablet 54 l amLODIPine Yes 5mg QD Take 5 mg [facility] (NORVASC) 5 3-[address] mg tablet 00:00: daily. Hospit a 00 l amLODIPine Yes 5mg QD Take 5 mg [facility] (NORVASC) 5 3-[address] mg tablet 00:00: daily. Hospit a 00 l amLODIPine Yes 5mg QD Take 5 mg [facility] (NORVASC) 5 3-[address] mg tablet 00:00: daily. Hospit a 00 l albuterol Yes 2.5mg Take 2.[address] [facility] (PROVENTIL) 9-14 mg [facility] 2.5 mg /3 16:33: nebulizati Me dical mL (0.083 05 on every 6 Cent er %) (six) nebulizer hours as solution needed for Wheezing. bisacodyl Yes 10mg QD Place [address] [facility] (DULCOLAX, 9-14 mg [facility] BISACODYL,) 16:33: rectally Me dical 10 mg 05 daily. Center suppository carBAMazepi Yes 400mg Q.5D Take [address] ne 9-14 mg by [facility] (TEGRETOL) 16:33: mouth 2 Medi nelson 200 mg 05 (two) Center tablet times daily . cetirizine Yes 5mg QD Take [address] (ZYRTEC) 5 9-14 by mouth [facility] MG tablet 16:33: daily. Medica l 05 Center cyanocobala Yes 1000ug Inject [facility] min 9-14 1,000 mcg [facility] (VITAMIN 16:33: intramuscu Med ical B-12) 1,000 05 larly Center mcg/mL once. injection finasteride 2017-0 Yes 5mg QD Take [address] (PROSCAR) 5 9-14 by mouth [facility] mg tablet 16:33: daily. Medica l 05 [place] gabapentin 2017-0 Yes 600mg Q.5D Take 600 [...] hr 16:33: daily. Medi nelson tablet 05 [place] niacin 100 2017 Yes 100mg QD Take [address] MG tablet 9-14 mg by [facility] 16:33: mouth Medical 05 nightly . [place] oxybutynin 20170 Yes 5mg Q.[id number] Take [address] [facility] (DITROPAN) 9-14 [id number] by mouth 3 [facility] 5 MG tablet 16:33: 3D (three) Med ical 05 times Center daily. brinzolamid 2017 Yes Apply to [facility] e-brimonidi 9-14 eye(s). [facility] ne 16:33: Medical (SIMBRINZA) [address] [place] [address] 1-0.2 % DrpS simvastatin 20170 Yes 80mg QD Take [address] (ZOCOR) 80 9-14 by mouth [facility] MG tablet 16:33: nightly. Medi nelson 05 Center dimethyl 2017-0 Yes Q.5D Take by [facility] fumarate 9-14 mouth 2 [facility] (TECFIDERA) 16:33: (two) Medic al 240 mg CpDR 05 times Center daily. carBAMazepi 2017-0 Yes trigeminal 200mg QD Take [address] ne 9-14 neuralgia mg by [facility] (TEGRETOL) 16:33: mouth Medica l 200 mg 05 daily Center tablet Taken at 1pm daily . gabapentin 2017-0 Yes 300mg QD Take [address] (NEURONTIN) 9-14 mg by [facility] 300 MG 16:33: mouth Medical capsule 05 nightly. Center bisacodyl 2017-[address] 10 [...] 16:33: Medical ophthalmic 05 Center solution levothyroxi 2017 Yes 25ug Take [address] ne 9-14 mcg by [facility] (SYNTHROID, 16:33: mouth Medic al LEVOTHROID) 05 Every Center 25 MCG morning on tablet an empty stomach. metoprolol 2017 Yes 50mg QD Take [address] (TOPROL-XL) 9-14 by mouth Luke s 50 MG 24 hr 16:33: daily. Medi nelson tablet 05 Center niacin 100 2017 Yes 100mg QD Take [address] MG tablet 9-14 mg by [facility] 16:33: mouth Medical 05 nightly . Center oxybutynin Yes 5mg Q.[id number] Take [address] [facility] [address] (DITROPAN) 9-14 [id number] by mouth 3 [facility] 5 MG tablet 16:33: 3D (three) Med ical 05 times Center daily. brinzolamid Yes Apply to [facility] e-brimonidi 9-14 eye(s). [facility] ne 16:33: Medical (SIMBRINZA) 05 Center 1-0.2 % DrpS simvastatin Yes 80mg QD Take [address] (ZOCOR) 80 9-14 by mouth [facility] MG tablet 16:33: nightly. Medi nelson 05 Center dimethyl 2017-0 Yes Q.5D Take by [facility] fumarate 9-14 mouth 2 [facility] (TECFIDERA) 16:33: (two) Medic al 240 mg CpDR 05 times Center daily. carBAMazepi Yes trigeminal 200mg QD Take [address] ne 9-14 neuralgia mg by [facility] (TEGRETOL) 16:33: mouth Medica l 200 mg 05 daily Center tablet Taken at 1pm daily . gabapentin 2017- Yes 300mg QD Take [address] (NEURONTIN) 9-14 mg by [facility] 300 MG 16:33: mouth Medical capsule 05 nightly. Center albuterol 2017-0 Yes 2.5mg Take 2.5 [facility] [...] MG tablet 16:33: daily. Medica l 05 [place] cyanocobala 2017-0 Yes 1000ug Inject [facility] min 9-14 1,000 mcg [facility] (VITAMIN 16:33: intramuscu Med ical B-12) 1,000 05 larly Center mcg/mL once. injection finasteride 2017-0 Yes 5mg QD Take [address] (PROSCAR) 5 9-14 by mouth Luke s mg tablet 16:33: daily. Medica l 05 [place] gabapentin 2017-0 Yes 600mg Q.5D Take 600 [...] 16:33: Medical ophthalmic 05 Center solution levothyroxi 2017-0 Yes 25ug Take [address] ne [...] [facility]ukes 16:33: mouth Medical 05 nightly . [place] oxybutynin Yes 5mg Q.[id number] Take [address] [address] (DITROPAN) 9-14 [id number] by mouth 3 [facility] 5 MG tablet 16:33: 3D (three) Med ical 05 times Center daily. brinzolamid Yes Apply to [facility] e-brimonidi 9-14 eye(s). [facility] ne 16:33: Medical (SIMBRINZA) 05 Center 1-0.2 % DrpS simvastatin Yes 80mg QD Take [address] (ZOCOR) 80 9-14 by mouth [facility] MG tablet 16:33: nightly. Medi nelson 05 Center dimethyl 0 Yes Q.5D Take by [facility] fumarate 9-14 mouth 2 [facility] (TECFIDERA) 16:33: (two) Medic al 240 mg CpDR 05 times Center daily. carBAMazepi Yes trigeminal 200mg QD Take [address] ne 9-14 neuralgia mg by [facility] (TEGRETOL) 16:33: mouth Medica l 200 mg 05 daily Center tablet Taken at 1pm daily . gabapentin 2017 Yes 300mg QD Take [address] (NEURONTIN) 9-14 mg by [facility] 300 MG 16:33: mouth Medical capsule 05 nightly. Center albuterol Yes 2.5mg Take 2.[address] (PROVENTIL) 9-14 mg by [facility] 2.5 mg /3 16:33: nebulizati Me dical mL (0.083 05 on every 6 Cent er %) (six) nebulizer hours as solution needed for Wheezing. Immunizations Ordered Filled Immunization Date Status Comments [facility] e Immunization Name Name BERNARDINO 2021-09-04 Completed University o f 00:00:00 [facility] BEBTELOVIMAB 2021-09-04 Completed University o f 00:00:00 [facility] BEBTELOVIMAB 2021-09-04 Completed University o f 00:00:00 [facility] BEBTELOVIMAB 2021-09-04 Completed University o f 00:00:00 [facility] BEBTELOVIMAB 2021-09-04 Completed University o f 00:00:00 [facility] BEBTELOVIMAB 2021-09-04 Completed University o f 00:00:00 [facility] BEBTELOVIMAB 2021-09-04 Completed University o f 00:00:00 [facility] BEBTELOVIMAB 2021-09-04 Completed University o f 00:00:00 [facility] BEBTELOVIMAB 2021-09-04 Completed University o f 00:00:00 [facility] BEBTELOVIMAB 2021-09-04 Completed University o f 00:00:00 [facility] BEBTELOVIMAB 2021-09-04 Completed University o f 00:00:00 [facility] BEBTELOVIMAB 2021-09-04 Completed University o f 00:00:00 [facility] BEBTELOVIMAB 2021-09-04 Completed University o f 00:00:00 [facility] BEBTELOVIMAB 2021-09-04 Completed University o f 00:00:00 [facility] BEBTELOVIMAB 2021-09-04 Completed University o f 00:00:00 [facility] BEBTELOVIMAB 2021-09-04 Completed University o f 00:00:00 [facility] BEBTELOVIMAB 2021-09-04 Completed University o f 00:00:00 [facility] BEBTELOVIMAB 2021-09-04 Completed University o f 00:00:00 [facility] BEBTELOVIMAB 2021-09-04 Completed University o f 00:00:00 [facility] BEBTELOVIMAB 2021-09-04 Completed University o f 00:00:00 [facility] BEBTELOVIMAB 2021-09-04 Completed University o f 00:00:00 [facility] BEBTELOVIMAB 2021-09-04 Completed University o f 00:00:00 [facility] BEBTELOVIMAB 2021-09-04 Completed University o f 00:00:00 [facility] BEBTELOVIMAB 2021-09-04 Completed University o f 00:00:00 [facility] BEBTELOVIMAB 2021-09-04 Completed University o f 00:00:00 [facility] BEBTELOVIMAB 2021-09-04 Completed University o f 00:00:00 [facility] BEBTELOVIMAB 2021-09-04 Completed University o f 00:00:00 [facility] BEBTELOVIMAB 2021-09-04 Completed University o f 00:00:00 [facility] BEBTELOVIMAB 2021-09-04 Completed University o f 00:00:00 [facility] BEBTELOVIMAB 2021-09-04 Completed University o f 00:00:00 [facility] BEBTELOVIMAB 2021-09-04 Completed University o f 00:00:00 [facility] BEBTELOVIMAB 2021-09-04 Completed University o f 00:00:00 [facility] BEBTELOVIMAB 2021-09-04 Completed University o f 00:00:00 [facility] BEBTELOVIMAB 2021-09-04 Completed University o f 00:00:00 [facility] BEBTELOVIMAB 2021-09-04 Completed University o f 00:00:00 [facility] BEBTELOVIMAB 2021-09-04 Completed University o f 00:00:00 [facility] BEBTELOVIMAB 2021-09-04 Completed University o f 00:00:00 [facility] BEBTELOVIMAB 2021-09-04 Completed University o f 00:00:00 [facility] BEBTELOVIMAB 2021-09-04 Completed University o f 00:00:00 [facility] BEBTELOVIMAB 2021-09-04 Completed University o f 00:00:00 [facility] BEBTELOVIMAB 2021-09-04 Completed University o f 00:00:00 [facility] BEBTELOVIMAB 2021-09-04 Completed University o f 00:00:00 [facility] BEBTELOVIMAB 2021-09-04 Completed University o f 00:00:00 [facility] BELUIS ALBERTOMAB 2021-09-04 Completed University o f 00:00:00 [facility] BELUIS ALBERTOMAB 2021-09-04 Completed University o f 00:00:00 [facility] BELUIS ALBERTOMAB 2021-09-04 Completed University o f 00:00:00 [facility] BELUIS ALBERTOMAB 2021-09-04 Completed University o f 00:00:00 [facility] BELUIS ALBERTOMAB 2021-09-04 Completed University o f 00:00:00 [facility] BELUIS ALBERTOMAB 2021-09-04 Completed University o f 00:00:00 [facility] BELUIS ALBERTOMAB 2021-09-04 Completed University o f 00:00:00 [facility] BELUIS ALBERTOMAB 2021-09-04 Completed University o f 00:00:00 [facility] MILDREDMAB 2021-09-04 Completed University o f 00:00:00 [facility] Vital Signs Vital Name Observation Time Observation Value Comments Source Systolic blood 2022-07-05 20:13:00 108 mm[Hg] Univer sity of pressure [facility] Diastolic blood 2022-07-05 20:13:00 61 mm[Hg] Unive rsity of [facility] Heart rate 2022-07-05 20:13:00 61 /min [facility] Body temperature 2022-07-05 20:13:00 36.89 Tabby [facility] 2022-07-05 20:13:00 14 /min [facility] Body weight 2022-07-05 20:13:00 78.019 kg [facility] BMI 2022-07-05 20:13:00 26.94 kg/m2 [facility] Oxygen saturation in 2022-07-05 20:13:00 97 /min [facility] Arterial blood by [facility] Pulse oximetry Branch Systolic blood 2022-02-15 21:08:00 108 mm[Hg] Univer sity of pressure [facility] Diastolic blood 2022-02-15 21:08:00 63 mm[Hg] Unive rsity of pressure [facility] Heart rate 2022-02-15 21:08:00 62 /min [facility] [place] [facility] Body temperature 2022-02-15 21:08:00 36.89 Tabby [facility] [place] [facility] Respiratory rate 2022-02-15 21:08:00 16 /min [facility] [place] [facility] Oxygen saturation in 2022-02-15 21:08:00 99 /min University of Arterial blood by [place] [facility] Pulse oximetry Branch Systolic blood 2022-01-23 17:44:00 149 mm[Hg] Univer sity of pressure [facility] Diastolic blood 2022-01-23 17:44:00 60 mm[Hg] Unive rsity of pressure [facility] Heart rate 2022-01-23 17:44:00 56 /min [facility] [place] [facility] Body temperature 2022-01-23 17:44:00 36.89 Tabby [facility] [place] [facility] Respiratory rate 2022-01-23 17:44:00 20 /min [facility] [place] [facility] Body height 2022-01-23 17:44:00 170.2 cm [facility] [place] [facility] Body weight 2022-01-23 17:44:00 79.425 kg [facility] [place] [facility] BMI 2022-01-23 17:44:00 27.42 kg/m2 [facility] [place] [facility] Oxygen saturation in 2022-01-23 17:44:00 95 /min [facility] Arterial blood by [place] [facility] Pulse oximetry Branch Systolic blood 2021-09-04 22:35:00 112 mm[Hg] Univer sity of pressure [facility] Diastolic blood 2021-09-04 22:35:00 52 mm[Hg] Unive rsity of pressure [facility] Heart rate 2021-09-04 22:35:00 56 /min [facility] [place] [facility] Body temperature 2021-09-04 22:35:00 36.33 Tabby [facility] [place] [facility] Respiratory rate 2021-09-04 22:35:00 14 /min [facility] [place] [facility] Oxygen saturation in 2021-09-04 22:35:00 98 /min [facility] Arterial blood by [place] [facility] Pulse oximetry Branch Body height 2021-09-04 21:15:00 170.2 cm [facility] [place] [facility] Body weight 2021-09-04 21:15:00 79.379 kg [facility] BMI 2021-09-04 21:15:00 27.41 kg/m2 [facility] Systolic blood 2021-03-28 04:11:00 164 mm[Hg] [facility] pressure Diastolic blood 2021-03-28 04:11:00 74 mm[Hg] [facility] pressure Heart rate 2021-03-28 04:11:00 56 /min [facility] Body temperature 2021-03-28 04:11:00 36.61 Tabby [facility] Respiratory rate 2021-03-28 04:11:00 19 /min [facility] Oxygen saturation in 2021-03-28 04:11:00 100 /min [facility] Arterial blood by Pulse oximetry Body height 2021-03-28 01:34:00 170.2 cm [facility] Body weight 2021-03-28 01:34:00 83.462 kg [facility] BMI 2021-03-28 01:34:00 28.82 kg/m2 [facility] Procedures Procedure Date / Time Performed Performing Clinician [facility] e CARDIAC REHAB SESSION 2022-10-01 05:00:00 Doctor Unassigned, No [facility] REPORT Name Medical Branch INDIVIDUAL CARDIAC 2022-09-17 21:52:00 Doctor Unassigned, No [facility] [place] TREATMENT PLAN Name Medical Branch CARDIAC REHAB SESSION 2022-09-10 05:00:00 Doctor Unassigned, No [facility] REPORT Name Medical Branch CARDIAC REHAB SESSION 2022-09-08 05:00:00 Doctor Unassigned, No [facility] REPORT Name Medical Branch INDIVIDUAL CARDIAC 2022-08-28 21:56:00 Doctor Unassigned, No [facility] [place] TREATMENT PLAN Name Medical Branch CARDIAC REHAB SESSION 2022-08-11 05:00:00 Doctor Unassigned, No [facility] REPORT Name Medical Branch INDIVIDUAL CARDIAC 2022-07-30 18:05:00 Doctor Unassigned, No [facility] [place] TREATMENT PLAN Name Medical Branch CARDIAC REHAB SESSION 2022-07-16 05:00:00 Doctor Unassigned, No [facility] REPORT Name Medical Branch XR CHEST 2 VW 2022-07-05 20:49:00 [facility] POCT URINALYSIS 2022-02-15 21:18:00 [facility] XR WRIST 3+ VW LEFT 2021-03-28 02:11:00 Ferdinand Gomez [facility] XR HAND 3+ VW LEFT 2021-03-28 02:11:00 Ferdinand Gomez [facility] Plan of Care Planned Activity Planned Date Details Comments Source Future Scheduled 2022-10-12 [facility] Test 17:53:03 malignant neoplasm of colon (procedure) [code = 581018916] Future Scheduled 2022-10-12 [facility] Test 17:53:03 malignant neoplasm of colon (procedure) [code = 124677470] Future Scheduled 2022-10-12 [facility] Test 17:53:03 malignant neoplasm of colon (procedure) [code = 393344757] Future Scheduled 2022-10-12 65+ [facility] 17:53:03 VACCINE (1 - PCV) [code = 65+ PNEUMOCOCCAL VACCINE (1 - PCV)] Future Scheduled 2022-10-12 Hepatitis C screening [facility] Test 17:53:03 (procedure) [code = 328208988] Future Scheduled 2022-10-12 SHINGLES VACCINES (1 Met [facility] Test 17:53:03 of 2) [code = SHINGLES VACCINES (1 of 2)] Future Scheduled 2022-10-12 COVID-19 VACCINE (2 - [facility] Test 17:53:03 Pfizer series) [code = COVID-19 VACCINE (2 - Pfizer series)] Future Scheduled 2022-10-12 INFLUENZA VACCINE [facility] Test 17:53:03 [code = INFLUENZA VACCINE] Future Scheduled 2022-10-12 [facility] Test 17:53:03 malignant neoplasm of colon (procedure) [code = 830173550] Future Scheduled 2022-10-12 [facility] Test 17:53:03 malignant neoplasm of colon (procedure) [code = 699718406] Future Scheduled 2022-03-12 SHINGLES VACCINES (1 Met [facility] Test 11:51:08 of 2) [code = SHINGLES VACCINES (1 of 2)] Future Scheduled 2022-03-12 COVID-19 VACCINE (2 - [facility] Test 11:51:08 Pfizer series) [code = COVID-19 VACCINE (2 - Pfizer series)] Future Scheduled 2022-03-12 INFLUENZA VACCINE [facility] Test 11:51:08 [code = INFLUENZA VACCINE] Future Scheduled 2022-03-12 65+ P[facility]UMOCOCCAL [facility] Test 11:51:08 VACCINE (1 - PCV) [code = 65+ PNEUMOCOCCAL VACCINE (1 - PCV)] Future Scheduled 2022-03-12 Hepatitis C screening [facility] Test 11:51:08 (procedure) [code = 175883095] Future Scheduled 2022-03-12 COLONOSCOPY SCREENING [facility] Test 11:51:08 [code = COLONOSCOPY SCREENING] Future Scheduled 2022-01-29 HEPATITIS B VACCINES [facility] Test 18:20:37 (1 of 3 - 3-dose series) [code = HEPATITIS B VACCINES (1 of 3 - 3-dose series)] Future Scheduled 2022-01-29 65+ PNEUMOCOCCAL [facility] Test 18:20:37 VACCINE (1 - PCV) [code = 65+ PNEUMOCOCCAL VACCINE (1 - PCV)] Future Scheduled 2022-01-29 Hepatitis C screening [facility] Test 18:20:37 (procedure) [code = 755103436] Future Scheduled 2022-01-29 COLONOSCOPY SCREENING [facility] Test 18:20:37 [code = COLONOSCOPY SCREENING] Future Scheduled 2022-01-29 SHINGLES VACCINES (1 Met [facility] Test 18:20:37 of 2) [code = SHINGLES VACCINES (1 of 2)] Future Scheduled 2022-01-29 COVID-19 VACCINE (2 - [facility] Test 18:20:37 Pfizer series) [code = COVID-19 VACCINE (2 - Pfizer series)] Future Scheduled 2022-01-29 INFLUENZA VACCINE [facility] Test 18:20:37 [code = INFLUENZA VACCINE] Encounters Start End Encounter Admission Attending Care Care Encounter Source Date/Time Date/Time Type Type Clinicians Facility Department ID 2021-04-[address] [facility] [id number] Common 14:10:02 Reynold [facility] 2022-11-26 2022-11-26 Outpatient R [facility] [id number] Univers 10:30:00 10:30:00 DMITRIY ity o f [facility] 2022-10-01 2022-10-01 Head Char [facility] Cardiac [facility] 1.2. 840.114 [id number] Univers 10:30:00 11:50:26 Visit Dmitriy Ashton [id number] [facility] [id number] [phone] Nd dical NAL [address] [place] [address] 2022-10-01 2022-10-01 Orders Doctor KARUNA [id number] Univers 00:00:00 00:00:00 Only Unassigned, VICTOR HUGO [id number] [facility] [id number] [place] [phone] [address] 2022-09-29 2022-09-29 [id number] Univers 10:30:00 10:30:00 DMITRIY duggany o [facility] 2022-09-24 2022-09-24 Head Char Filter [facility], [facility] Cardiac [facility] 1.. 840.114 [id number] [facility] 10:30:00 11:58:23 Visit Dmitriy Ashton [id number] [facility] [id number] [phone] Nd dical NAL [address] [place] [address] 2022-09-24 2022-09-24 [facility] [id number] Univers 10:30:00 10:30:00 DMITRIY duggany o shawn [facility] 2022-09-22 2022-09-22 Head Char Filter [facility], [facility] Cardiac [facility] 1.2. 840.114 [id number] Univers 10:30:00 11:47:28 Visit Dmitriy Ashton [id number] [facility] [id number] [phone] Nd dical NAL 0 [facility] 2022-09-17 2022-09-17 Head Char [facility], [facility] 1.2. 840.114 [id number] [facility] 10:30:00 11:41:22 Visit Dmitriy Ashton 350.1.13.10 ity of [place] [phone] Nd dicid NAL 0 [facility] 2022-09-17 2022-09-17 Orders Doctor KARUNA 1.2.840.114 [id number] Univers 00:00:00 00:00:00 Only Unassigned, VICTOR HUGO 350.1.13.10 ity of [place] [facility] 4.2.7.2.686 [place] [phone] [address] 2022-09-15 2022-09-15 Head Char [facility], [facility] 1.2. 840.114 [id number] [facility] 10:00:00 13:05:20 Visit Dmitriy Ashton 350.1.13.10 [facility] [place] [phone] [address] 2022-09-10 2022-09-10 Head Char Filter [facility], [facility] 1.2. 840.114 [id number] [facility] 10:30:00 11:50:56 Visit Dmitriy Ashton 350.1.13.10 it[place] [phone] Nd dicid NAL [address] [place] [address] 2022-09-08 2022-09-08 Head Char [facility], [facility] 1.2. 840.114 [id number] [facility] 10:30:00 11:51:05 Visit Dmitriy AshtonTRUMAN 350.1.13.10 it[place] of [place] [phone] Nd dical NAL [address] [place] [address] 2022-09-08 2022-09-08 Orders Doctor BECKMAN 1.2.840.114 [id number] Univers 00:00:00 00:00:00 Only Unassigned, VICTOR HUGO 350.1.13.10 ity of [place] [facility] 4.2.7.2.686 [place] [phone] [address] 2022-09-03 2022-09-03 Head Char Filter [facility], [facility] 1.2. 840.114 [id number] Univers 10:30:00 11:27:13 Visit WaqasDmitriy GABBY 350.1.13.10 ity [facility] [place] [phone] Nd dic[address] 2022-09-02 2022-09-02 Outpatient GUU_SHENG_Y [facility] [id number] [place] 00:00:00 00:[place]:00 [place] [address] da [facility] Program 2022-09-01 2022-09-01 Head Char Filter [facility], [facility] 1.2. 840.114 [id number] [facility] 10:30:00 12:10:51 Visit Waqas Dmitriy PIERRE 350.1.13.10 ity of [place] [phone] [address] 2022-08-28 2022-08-28 Orders Doctor KARUNA 1.2.840.114 [id number] Univers 00:00:00 00:00:00 Only Unassigned, VICTOR HUGO 350.1.13.10 ity of [place] [facility] 4.2.7.2.686 [place] [phone] [address] 2022-08-13 2022-08-13 Head Char Filter [facility], [facility] 1.2. 840.114 [id number] [facility] 10:30:00 11:13:12 Visit Waqas Chantorrey GABBY 350.1.13.10 ity of [place] [phone] [address] 2022-08-13 2022-08-13 Outpatient R WAQAS [facility] [id number] Univers 10:30:00 10:30:00 DMITRIY pierce o f [facility] 2022-08-11 2022-08-11 Head Char Filter [facility], [facility] 1.2. 840.114 [id number] Univers 10:30:00 11:27:54 Visit Waqas Dmitriy PIERRE 350.1.13.10 ity of [place] [phone] Nd dical NAL 060 [facility] 2022-08-11 2022-08-11 Orders Doctor KARUNA 1.2.840.114 [id number] [facility] 00:00:00 00:00:00 Only Unassigned, VICTOR HUGO 350.1.13.10 ity of [place] [facility] 4.2.7.2.686 [place] [phone] [address] 2022-08-06 2022-08-06 Head Char Filter [facility], [facility] 1.2. 840.114 [id number] [facility] 10:30:00 11:16:26 Visit Waqas Dmitriy PIERRE 350.1.13.10 ity [place] [phone] Nd dical NAL 0 [facility] 2022-07-30 2022-07-30 Head Char Filter [facility] T[facility], [facility] 1.2. 840.114 [id number] [facility] 10:30:00 11:02:55 Visit Waqas Dmitriy PIERRE 350.1.13.10 it[place] [phone] Nd dical NAL 0 [facility] 2022-07-30 2022-07-30 Orders Doctor BECKMAN 1.2.840.114 [id number] [facility] 00:00:00 00:00:00 Only Unassigned, VICTOR HUGO 350.1.13.10 ity of [place] [facility] 4.2.7.2.686 [place] [phone] [address] 2022-07-28 2022-07-28 Head Char Filter [facility], [facility] 1.2. 840.114 [id number] Univers 10:30:00 11:09:09 Visit Waqas Dmitriy PIERRE 350.1.13.10 ity of [place] [phone] Nd dical NAL 0 [facility] 2022-07-21 2022-07-21 Head Char Filter [facility], [facility] 1.2. 840.114 [id number] Univers 10:30:00 11:46:49 Visit WaqasDmitriy 350.1.13.10 ity of [place] [phone] [place] 506570 [facility] 2022-07-21 2022-07-21 Outpatient R WAQAS [facility] [id number] Univers 10:30:00 10:30:00 CHANTORREY ity o f [facility] 2022-07-16 2022-07-16 Head Char Filter [facility] Tender Re[facility], [facility] 1.2. 840.114 [id number] Univers 10:30:00 11:47:56 Visit Dmitriy Ashton GABBY 350.1.13.10 ity of [place] [phone] [address] 2022-07-16 2022-07-16 Orders Doctor KARUNA 1.2.840.114 [id number] Univers 00:00:00 00:00:00 Only Unassigned, VICTOR HUGO 350.1.13.10 ity of [place] [facility] 4.2.7.2.686 [place] [phone] [address] 2022-07-08 2022-07-08 Head Char Filter [facility], [facility] 1.2. 840.114 [id number] Univers 15:30:00 17:32:37 Visit WaqasDmitriy 350.1.13.10 ity of [facility] 4[place] [phone] [address] 2022-07-05 2022-07-05 Outpatient R ENMANUEL [facility] [id number] Univers 15:32:21 23:59:00 SHERLYN ity of [facility] 2022-07-05 2022-07-05 [facility] 1.2.840.114 [id number] Univers 15:32:21 23:59:00 Encounter [facility] 350.1.13.10 ity of [place] 4.2.7.2.686 [place] LISA?BLEA [phone] Nd griselda BURTON 808 [facility] OFF[facility] 2022-07-05 2022-07-05 Urgent Sherlyn Singer [facility] 1.2.840.114 1 [id number] Univers 15:00:00 15:54:33 Care Unknown, Attending HEALTH 350.1.13.10 [place] of [place] 4.2.7.2.686 [place] LISA?BLEA [phone] Nd griselda [facility] 370 [facility] OFFICE [facility] 2022-07-05 2022-07-05 Outpatient R UNKNOWN, [facility] [id number] Univers 15:00:00 15:00:00 ATTENDING [facility] 2022-07-05 2022-07-05 Outpatient R UNKNOWN, [facility] [id number] Univers 14:40:00 14:40:00 ATTENDING [facility] 2022-06-29 2022-07-03 Inpatient E KENNY DOLAN [facility] 7[address] [facility] 17:37:00 15:20:00 2022-02-15 2022-02-15 Urgent Quin Deluna [facility] 1.2.840.114 [id number] Univers 15:00:00 15:20:00 Care Unknown, Attending HEALTH 350.1.13.10 [place] of [place] 4.2.7.2.686 [place] LISA?BLEA [phone] [address] 2022-02-15 2022-02-15 Outpatient R MIKIE, [facility] [id number] Univers 15:00:00 15:00:00 QUIN [facility] 2022-01-26 2022-01-26 Telephone [facility] .[id number] [id number] Univers 00:00:00 00:00:00 Liz [facility] 350.1.13.10 ity of [place] 4.2.7.2.686 [place] LISA?BLEA [phone] [facility] [address] OFFICE [facility] 2022-01-23 2022-01-23 Outpatient R MELONY [facility] [id number] Univers 12:40:00 13:04:46 JORDAN escobar [facility] 2022-01-23 2022-01-23 Urgent Jordan Ty [facility] 1.2.840. 114 [id number] Univers 12:40:00 13:00:00 Care Unknown, Attending HEALTH 350.1.13.10 ity of [facility] 4.2.7.2.686 [place] LISA?BLEA [phone] [address] MEDICAL OFFICE [facility] 2022-01-19 2022-01-19 Outpatient R [facility] [id number] Univers 14:55:00 15:29:26 LIZ escobar [facility] 2021-09-18 2021-09-18 Telephone KARUNA Jara 1.2.622.184 [id number] Univers 00:00:00 00:00:00 Lolly GAY 350.1.13.10 i ty of [facility] 4.2.7.2.686 [place] [phone] [address] 2021-09-16 2021-09-16 Outpatient R [facility] [id number] Univers 15:00:00 15:15:07 LIZ escobar [facility] 2021-09-16 2021-09-16 Laboratory Only, Ang Db Test [facility] 1.2.8 40.114 [id number] Univers 15:00:00 15:15:00 Only Liz Wong [facility] 350.1.13.10 ity of [facility] 4.2.7.2.686 [place] LISA?BLEA [phone] [address] MEDICAL OFFICE [facility] 2021-09-04 2021-09-04 Nurse Therapy, Adc Covid Infusion [facility] 1.2.840.114 [id number] Univers 16:00:00 17:00:00 Visit Michael Milan 350.1.13.10 ity of [place] SURGICAL [id number] [place] 458083 [place] 2021-09-04 2021-09-04 Outpatient R BJORN [facility] [id number] Univers 16:00:00 16:00:00 MICHAEL duggany [facility] 2021-09-02 2021-09-02 Outpatient R AZUCENA [facility] [id number] Univers 09:00:00 09:25:28 MARISELA itfrancine [facility] 2021-09-02 2021-09-02 Laboratory Only, Ang Db Test [facility] 1.2.8 40.114 [id number] Univers 09:00:00 09:15:00 Only Marisela Holcomb [facility] 350.1.13.10 ity of [place] 4.2.7.2.686 [place] LISA?BLEA [phone] [address] MEDICAL OFFICE BUILDING 2021-09-02 2021-09-02 Letter KARUNA Kaye 1.2.840.114 [id number] Univers 00:00:00 00:00:00 (Out) Ni Deleon VICTOR HUGO 350.1.13.10 it y of [facility] 4.2.7.2.686 [place] [phone] [address] 2021-03-30 2021-03-30 Travel 1.2.840.1 1.2.552.286 [id number] Methodi 00:00:00 00:00:[address] 3.430.2.7 0.2.7.3.698 Ho spita .3.149326 084.8 l .8 2021-03-27 2021-03-27 Emergency Ferdinand Gomez 1.2.840.1 [id number] Methodi 19:32:00 22:12:00 Issac Morrison [address] 3.430.2.7 Hospit a .3.560246 l .8 2021-03-27 2021-03-27 Travel 1.2.840.1 1.2.428.873 [id number] Methodi 00:00:00 00:00:[address] 3.430.2.7 0.2.7.3.698 Ho spita .3.487852 084.8 l .8 2020-11-18 2020-11-18 Outpatient GINGER [facility] [id number] [place] 00:00:00 00:00:00 JOE [address] 2019-11-20 2019-11-20 Outpatient GINGER [facility] [id number] [place] 00:00:00 00:00:00 JOE [address] [...] controls Lab Interpretation (test code = Abnormal 20224-9) [facility] [id number] 13:51:00 Test Item Value Reference Range Interpretation Comments SCAN RESULT (test code = 6719150) Result comments: STREPTOCOCCUS SPECIES DETECTED (Non-Strep Pneumo; Non-Group A or Group B) First line therapy: Vancomycin De-escalate based on susceptibilities Other organisms and resistance markers not contained in this PCR panel cannot be excluded and follow-up of traditional culture results is required. This sample was tested at the [facility] Clinical Microbiology Laboratory using the Cube Route Blood Culture ID Panel. This test is FDA cleared for in vitro diagnostic use and has been verified and approved by the [facility] Clinical Microbiology laboratory for clinical use. Reference Range: Not DetectedBLOOD [id number] 13:19:00 Test Item Value Reference Range Interpretation [...] is required. This sample wastested at the [facility] Clinical [facility]biology Laboratory using the Cube Route Blood Culture ID Panel. This test is FDA cleared for in vitro diagnostic use and has been verified and approved by the [facility] Clinical Microbiology laboratory for clinical use. Reference Range: Not DetectedBLOOD [id number] 19:00:00 Test Item Value Reference Range Interpretation Comments CULTURE (BEAKER) (test No growth in 5 days code = 1095) BLOOD [id number] 19:00:00 Test Item Value Reference Range Interpretation Comments CULTURE (BEAKER) (test No growth in 5 days code = 1095) CORTISOL,60 [id number] 15:41:00 Test Item Value Reference Range Interpretation [...] study by Caroline et al (JUAN J 2000,283(8):6795-45), the ACTH Stimulation Test provides important prognostic [...] and Therapeutics Committee on 03/07/2004 and available th rough the Pharmacy Policy and Procedure Section on [...] cortisol level 60 minutes after cosyntropin administration.CORTISOL,30 [id number] 15:40:00 Test Item Value Reference Range Interpretation [...] serum cortisol level 60 minutes after cosyntropin administration.CORTISOL,[id number] 11:51:00 Test Item Value Reference Range Interpretation [...] study by Caroline et al (JUAN J 2000,283(8):7656-45), the ACTH Stimulation Test provides important prognostic [...] cortisol level 60 minutes after cosyntropin administration.URINE [id number] 10:21:00 Test Item Value Reference Range Interpretation Comments CULTURE (BEAKER) (test code = 1095) No growth RAD, CHEST, 1 VIEW, NON [id number] 08:44:00Reason for exam:->pnaShould this be performed at the bedside?->YesFINAL REPORT INDICATION: pna COMPARISON: None. TECHNIQUE: Chest radiograph, single view, portable technique. FINDINGS / IMPRESSION: There is no evidence of pneumonia or pulmonary edema. Cardiac and mediastinal contours are unremarkable. No pleural effusion or pneumothorax is demonstrated. Osseous structures are unremarkable. In summary, no evidence of acute pulmonary or cardiac abnormality. Signed: Yohannes Mike MDReport Verified Date/Time: 12/09/2016 08:44:43 Reading Location: [facility] Diagnostic Imaging Reading Room - [place] [address] MAGNESIUM 2016-12-09 08:08:00 Test Item Value Reference Range Interpretation Comments MAGNESIUM (BEAKER) (test code = 1.9 mg/dL 1.6-2.6 627) BASIC METABOLIC [id number] 08:08:00 Test Item Value Reference Range Interpretation [...] S NOT APPLICABLE FOR DIALYSIS PATIEN TS. [id number] 06:44:00 Test Item Value Reference Range Interpretation Comments CORTISOL, TOTAL (BEAKER) (test code 6.2 ug/dL 3.7-19.4 = 2755) CALCIUM, [id number] 06:16:00 Test Item Value Reference Range Interpretation Comments CALCIUM IONIZED (BEAKER) (test 0.93 mmol/L 1.12-1.27 L code = 698) PH, BLOOD (BEAKER) (test code = 7.50 1810) EEG AWAKE AND [id number] 17:34:00Reason for exam:->SyncopeDATE OF EE12-08-2016 DATE OF REPORT: 12-08-2016 ACC: [id number] Start time: 12:49 Stoptime: 13:10 ICD-10: R55 CPT Code: 62494 HISTORY: recurrent syncopal episodes MEDICATIONS THAT COULD AFFECT EEG: TECHNICAL SUMMARY: This is a digital EEG recorded with 32 input channels on a Parents R People system and then reviewed with bipolar and [...] EEG awake and asleep. Cristina Dent MD Neur ophysiology Fellow PGY5 Mariama Oh MD Neurophysiology Attending (MANUAL DIFFERENTIAL)2016-12-08 10:20:00 Test [...] PLT(BEAKER) (test code = Present 2156) CALCIUM, [id number] 07:03:00 Test Item Value Reference Range Interpretation Comments CALCIUM IONIZED (BEAKER) (test 1.14 mmol/L 1.12-1.27 code = 698) PH, BLOOD (BEAKER) (test code = 7.37 1810) [id number] 07:01:00 Test Item Value Reference Range Interpretation Comments MAGNESIUM (BEAKER) (test code = 2.0 mg/dL 1.6-2.6 627) BASIC METABOLIC [id number] 07:01:00 Test Item Value Reference Range Interpretation [...] PATIEN TS. CBC W/PLT COUNT & AUTO [id number] 06:30:00 Test Item Value Reference Range Interpretation [...] (BEAKER) (test code = 2801) URINALYSIS W/ [id number] 17:47:00 Test Item Value Reference Range Interpretation [...] 517) SOURCE(BEAKER) (test code = Urine, Voided 1620) CT, CAROTID, [id number] 16:48:00FINAL REPORT CTA head and neck with [...] left and mild to moderate right mid RESIDENT PROGRAMS ASSISTANT stenoses and mild left intradural vertebral artery stenosis. There is mild carotid siphon atherosclerosis. Otherwise no high grade proximal mi'kmaq of Merchant stenosis or major branch occlusion [...] left and mild to moderate right mid RESIDENT PROGRAMS ASSISTANT stenoses, and other lesser intracranial atherosclerotic changes as discussed. 4. Nonspecific bilateral ground glasslung opacities, which could reflect edema or atypical pneumonitis. Advise correlation with chest imaging. Signed: Mahad Moulton Verified Date/Time: 12/07/2016 16:48:08 Reading Location:[address] Neuro Reading Room [facility], CTANG [id number] 16:48:00FINAL REPORT CTA head and neck with [...] left and mild to moderate right mid RESIDENT PROGRAMS ASSISTANT stenoses and mild left intradural vertebral artery stenosis. There is mild carotid siphon atherosclerosis. Otherwise no high grade proximal mi'[place] of [place] stenosis or major branch occlusion [...] left and mild to moderate right mid RESIDENT PROGRAMS ASSISTANT stenoses, and other lesser intracranial atherosclerotic changes as discussed. 4. Nonspecific bilateral ground glasslung opacities, which could reflect edema or atypical pneumonitis. Advise correlation with chest imaging. Signed: Mahad Moultonort Verified Date/Time: 12/07/2016 16:48:08 Reading Location:[facility] C013V Neuro Reading Room TINE KINASE (CK), TOTAL AND [id number] 14:16:00 Test Item Value Reference Range Interpretation Comments CREATINE KINASE TOTAL (BEAKER) 85 U/L 29-200 (test code = 380) CREATINE KINASE-MB (BEAKER) (test 3.5 ng/mL 0.0-6.6 code = 750) CREATINE KINASE-MB INDEX (BEAKER) 4.1 % (test code = 395) CK-MB Reference Range:<6.7 Normal6.7-10.0 Borderline>10.0 AbnormalTROPONIN [id number] 14:16:00 Test Item Value Reference Range Interpretation [...] failure, acidosis, acute neurological disease, and persistent tachyarrhythmia.[id number] 14:09:00 Test Item Value Reference Range Interpretation Comments MAGNESIUM (BEAKER) (test code = 2.1 mg/dL 1.6-2.6 627) BASIC METABOLIC [id number] 14:09:00 Test Item Value Reference Range Interpretation [...] S NOT APPLICABLE FOR DIALYSIS PATIEN TS. [id number] 13:58:00 Test Item Value Reference Range Interpretation [...] mechanical heart valves.CBC W/PLT COUNT & AUTO [id number] 13:52:00 Test Item Value Reference Range Interpretation [...] PERCENT (BEAKER) (test code = 2801) POCT-GLUCOSE [id number] 13:46:00 Test Item Value Reference Range Interpretation Comments POC-GLUCOSE METER 136 mg/dL 70-110 H TESTED AT [facility] 6720 (BEAKER) (test code = [facility] 1538) [address] CT, BRAIN/STROKE [id number] 13:28:00Reason for exam:->loss of consciousnessFINAL REPORT CT [...] stroke neurology housestaff at 1:26 PM Signed: Mahad Moultonort Verified Date/Time: 12/07/2016 13:28:57 Reading Location: [facility] C013V Neuro Reading Room
[2022-10-12 18:33] LABS: Absolute Lymphocytes (CBC) 0.4 K/uL (0.7-4.9); Hematocrit 32.9 % (39.6-49.0); Lymphocytes % 7.6 % (15.3-44.8); MPV 8.2 fL (7.6-11.3); RBC Red Blood Cell Count 3.43 M/uL (4.33-5.43)
[2022-10-12 18:34] LABS: Protime INR 1.02
[2022-10-12 18:35] LABS: Albumin 3.5 g/dL (3.4-5.0); Bilirubin Direct 0.1 mg/dL (0-0.2); Bilirubin Indirect, Calculated 0.2 mg/dL (0.2-0.8); Bilirubin Total 0.3 mg/dL (0.2-1.0); Protein, Total 6.3 g/dL (6.4-8.2); Troponin High Sensitivity 11.3 pg/mL (<58.9)
[2022-10-12 18:39] LABS: Specific Gravity 1.012 (1.005-1.030); Urine Bacteria None Seen /HPF (<20); Urine Bilirubin NEGATIVE (Negative); Urine Blood Negative (Negative); Urine Clarity Clear (Clear); Urine Color Light-Yellow (Yellow); Urine Glucose NEGATIVE (Negative); Urine Mucus Slight /HPF (None Seen); Urine Protein TRACE (Negative); Urine RBC <5 /HPF (None Seen); Urine Urobilinogen Normal (Normal); Urine pH 6.5 (5.0-7.0)
--- NOTE | 2022-10-12 19:51 | RAD REPORT ---
EXAM DESCRIPTION: CT - Abdomen Pelvis W Contrast - 10/12/2022 7:38 pm CLINICAL HISTORY: Abdominal pain COMPARISON: none. TECHNIQUE: Computed axial tomography of the abdomen pelvis was obtained. 100 cc Isovue-300 was admin istered intravenously. Oral contrast was not requested which limits evaluation of bowel and appendix All CT scans are performed using dose optimization technique as appropriate and may include automated exposure control or mA/KV adjustment according to patient size. FINDINGS: Cholecystectomy. The liver, spleen, pancreas, adrenal and kidneys appear unremarkable. There is no evidence of diverticulitis. Appendectomy. Small to moderate bilateral inguinal hernias contain fat Atherosclerosis. Coronary arterial calcifications IMPRESSION: No acute abnormality is displayed.
--- NOTE | 2022-10-13 08:54 | RAD REPORT ---
EXAM DESCRIPTION: Julieta Single View10/13/2022 8:48 am CLINICAL HISTORY: Abdominal pain COMPARISON: 2021 FINDINGS: The lungs appear clear of acute infiltrate. The heart is borderline enlarged. Due to technical issues the exam could not be dictated until now IMPRESSION: No acute abnormalities displayed
--- NOTE | 2022-10-13 20:41 | EKG ---
Test Date: 2022-10-12 Test Time: 12:29:59 [employer]: JESÚS MEASUREMENT RESULTS: Intervals: Rate: 51 IN: 242 QRSD: 104 QT: 442 QTc: 407 [place]: P: 30 IN: 242 QRS: 0 T: 165 INTERPRETIVE STATEMENTS: Sinus bradycardia with 1st degree AV block Possible Left atrial enlargement Left ventricular hypertrophy with repolarization abnormality Abnormal ECG Compared to ECG 04/02/2022 21:15:44 Early repolarization now present Sinus arrhythmia no longer present Electronically Signed On 10-13-22 20:38:08 CDT by Jonathan Holcomb
--- NOTE | 2022-10-29 10:46 | EDPHYS ---
Physician Documentation [facility] Name: Eleuterio Baird Age: 71 yrs Sex: Male : 1950 Arrival Date: 10/12/2022 Time: 11:33 Bed 15 Private MD: Maddie Parham C ED Physician [place] Mcleod HPI: 10/12 12:44 This 71 yrs old Male presents to ER via EMS with complaints of near syncope. rn 12:44 The patient has experienced near-syncope. Onset: The symptoms/episode began/occurred rn just prior to arrival. Duration: This was a single episode. Associated injury: The patient did not suffer any apparent associated injury. Associated signs and symptoms: Pertinent negatives: abdominal pain, chest pain, confusion, headache, palpitations, seizure, shortness of breath, vomiting, weakness. Current symptoms: Currently, the patient is not experiencing any symptoms. The patient has not experienced similar symptoms in the past. Pt reports hx of recurrent constipation, was straining on toilet to have bowel movement, got lightheaded, dizzy, near syncope. stated he looked pale and called 911. Once EMS got to him, felt much better, normal BP, and was asymptomatic. Patient reports "could walk right out of here if you let me". No complaints currently. Was able to have a bowel movement after episode. . Historical: - Allergies: 11:51 Amantadine; db 11:51 Flagyl; db - PMHx: 11:51 HTN; [place]; MS; Seizure; db - Immunization history:: Adult Immunizations unknown. - Social history:: Smoking status: Patient denies any tobacco usage or history of. - Family history:: not pertinent. ROS: 12:47 Constitutional: Negative for fever, chills, and weight loss, Eyes: Negative for injury, rn pain, redness, and discharge, Neck: Negative for injury, pain, and swelling, Cardiovascular: Negative for chest pain, palpitations, and edema, Respiratory: Negative for shortness of breath, cough, wheezing, and pleuritic chest pain, Abdomen/GI: + constipation Back: Negative for injury and pain, MS/Extremity: Negative for injury and deformity, Skin: Negative for injury, rash, and discoloration, Neuro: Negative for headache, weakness, numbness, tingling, and seizure. Exam: 12:47 Constitutional: This is a well developed, well nourished patient who is awake, alert, rn and in no acute distress. Head/Face: Normocephalic, atraumatic. Eyes: Pupils equal round and reactive to light, extra-ocular motions intact. ENT: dry MM Neck: Trachea midline, no thyromegaly or masses palpated, and no cervical lymphadenopathy. Supple, full range of motion without nuchal rigidity, or vertebral point tenderness. No Meningismus. Cardiovascular: Bradycardic, regular. No pulse deficits. Respiratory: No increased work of breathing, no retractions or nasal flaring. Abdomen/GI: soft, non-tender Skin: Warm, dry MS/ Extremity: Pulses equal, no cyanosis. Neuro: Awake and alert, GCS 15, oriented to person, place, time, and situation. + right upper and lower facial weakness (reports chronic and not new). Motor strength 5/5 in all extremities. Sensory grossly intact. Cerebellar exam normal. 12:50 ECG was reviewed by the Attending Physician. rn Vital Signs: 11:35 BP 130 / 58; Pulse 50; Resp 18; Temp 98.1(O); Pulse Ox 96% on R/A; Weight 74.84 kg; db Height 5 ft. 7 in. ; 12:00 BP 117 / 51; Pulse 51; Resp 16; Pulse Ox 97% on R/A; db 13:00 BP 150 / 60; Pulse 65; Resp 16; Pulse Ox 99% on R/A; ll1 14:49 BP 126 / 51; Pulse 58; Resp 16; Pulse Ox 95% on R/A; ll1 15:30 BP 158 / 57; Pulse 59; Resp 16; Pulse Ox 95% on R/A; ll1 11:35 Body Mass Index 25.84 (74.84 kg, 170.18 cm) db MDM: 11:34 Patient medically screened. yaya 15:49 Differential Diagnosis: aortic aneurysm, cardiac arrhythmia, emotional response, rn idiopathic syncope, vasovagal episode. Data reviewed: vital signs, nurses notes, lab test result(s), EKG, radiologic studies, CT scan, and as a result, I will discharge patient. Counseling: I had a detailed discussion with the patient and/or guardian regarding: the historical points, exam findings, and any diagnostic results supporting the discharge/admit diagnosis, lab results, radiology results, the need for outpatient follow up, to return to the emergency department if symptoms worsen or persist or if there are any questions or concerns that arise at home. Response to treatment: the patient's condition has returned to base line, the patient is now symptom free, and as a result, I will discharge patient. Special discussion: I discussed with the patient/guardian in detail that at this point there is no indication for admission to the hospital. It is understood, however, that if the symptoms persist or worsen the patient needs to return immediately for re-evaluation. ED course: Pt back to baseline since arrival. CT without acute findings. Labs unremarkable. states has known hx of vasovagal reactions. Will dc home with return precautions. thankful and comfortable with plan. . 10/12 11:38 Order name: Cardiac monitoring; Complete Time: 12:24 [facility] 10/12 11:38 Order name: EKG - Nurse/Tech; Complete Time: 12:31 [facility] 10/12 11:38 Order name: IV Saline Lock; Complete Time: 11:57 [facility] 10/12 11:38 Order name: Labs collected and sent; Complete Time: 12:23 [facility] 10/12 11:38 Order name: O2 Per Protocol; Complete Time: 12:24 [facility] 10/12 11:38 Order name: O2 Sat Monitoring; Complete Time: 12:24 [facility] EC:50 Rate is 51 beats/min. Rhythm is regular. QRS [place] is Normal. [place] interval is prolonged. rn QRS interval is normal. QT interval is normal. No Q waves. T waves are Normal. No ST changes noted. Clinical impression: 1st degree heart block and Sinus bradycardia. Interpreted by me. Reviewed by me. Administered Medications: 12:23 Drug: NS 0.9% IV 1000 ml Route: IV; Rate: 1 bolus; Site: right antecubital; db 14:00 Follow up: Response: No adverse reaction; IV Status: Completed infusion; IV Intake: db 1000ml Disposition Summary: 10/12/22 15:51 Discharge Ordered Location: Home rn Problem: new rn Symptoms: have improved rn Condition: Stable rn Diagnosis - Vasovagal reaction rn Followup: rn - With: Private Physician - When: As needed - Reason: Recheck today's complaints, Re-evaluation by your physician Discharge Instructions: - Discharge Summary Sheet rn - Near-Syncope rn Forms: - Medication Reconciliation Form rn - Thank You Letter rn - Antibiotic varnish finisher - Prescription Opioid Use rn - Patient Portal Instructions rn Signatures: Timothy Wong MD MD cha Nieto, Roman, MD MD rn Benton, Danielle, RN RN db
--- NOTE | 2022-10-29 10:46 | ER ---
Nurse's Notes [facility] Name: Eleuterio Baird Age: 71 yrs Sex: Male : 1950 Arrival Date: 10/12/2022 Time: 11:33 Bed 15 Private MD: Maddie Parham C Diagnosis: Vasovagal reaction Presentation: 10/12 11:35 Chief complaint: EMS states: PATIENT FROM HOME WAS ATTEMPTING TO HAVE A BOWEL MOVEMENT db ON TOILET. SUDDENLY BECAME PALE, NAUSEA AND THEN STARTED VOMITING WITH DIARRHEA. DENIES LOSING CONSCIOUS OR FALLING. GLUCOSE 126. Coronavirus screen: Client denies travel out of the [place] in the last 14 days. At this time, the client does not indicate any symptoms associated with coronavirus-19. Ebola Screen: Patient negative for fever greater than or equal to 101.5 degrees Fahrenheit, and additional compatible Ebola Virus Disease symptoms Patient denies exposure to infectious person. Patient denies travel to an Ebola-affected area in the 21 days before illness onset. No symptoms or risks identified at this time. Initial Sepsis Screen: Does the patient meet any 2 criteria? No. Patient's initial sepsis screen is negative. Does the patient have a suspected source of infection? No. Patient's initial sepsis screen is negative. Risk Assessment: Do you want to hurt yourself or someone else? Patient reports no desire to harm self or others. Onset of symptoms was October 12, 2022. 11:35 Method Of Arrival: EMS: [facility] db 11:35 Acuity: SALOME 2 db Triage Assessment: 11:51 General: Appears in no apparent distress. comfortable, Behavior is calm, cooperative. db Pain: Denies pain. GI: Reports diarrhea, nausea, vomiting. Historical: - Allergies: 11:51 Amantadine; db 11:51 Flagyl; db - PMHx: 11:51 HTN; [place]; MS; Seizure; db - Immunization history:: Adult Immunizations unknown. - Social history:: Smoking status: Patient denies any tobacco usage or history of. - Family history:: not pertinent. Screenin:03 [facility] ED Fall Risk Assessment (Adult) History of falling in the last 3 months, ll1 including since admission No falls in past 3 months (0 pts) Confusion or Disorientation No (0 pts) Intoxicated or Sedated No (0 pts) Impaired Gait No (0 pts) Mobility Assist Device Used Yes (1 pt) Altered Elimination No (0 pt) Score/Fall Risk Level 0 - 2 = Low Risk Oriented to surroundings, Maintained a safe environment. Abuse screen: Denies threats or abuse. Denies injuries from another. Nutritional screening: No deficits noted. Tuberculosis screening: No symptoms or risk factors identified. Assessment: 11:52 Reassessment: Patient appears in no apparent distress at this time. Patient and/or db family updated on plan of care and expected duration. Pain level reassessed. Patient is alert, oriented x 3, equal unlabored respirations, skin warm/dry/pink. SEE TRIAGE FOR INITIAL ASSESSMENT. PATIENT REPORTS FEELS BETTER. 14:00 Reassessment: Patient appears in no apparent distress at this time. Patient and/or ll1 family updated on plan of care and expected duration. Pain level reassessed. Patient is alert, oriented x 3, equal unlabored respirations, skin warm/dry/pink. General: Appears in no apparent distress. comfortable, Behavior is calm, appropriate for age. Neuro: Level of Consciousness is awake, alert, obeys commands, Oriented to person, place, time, situation. Respiratory: Airway is patent Respiratory effort is even, unlabored, Respiratory pattern is regular, symmetrical. 16:03 Reassessment: Patient appears in no apparent distress at this time. Patient and/or ll1 family updated on plan of care and expected duration. Pain level reassessed. Patient is alert, oriented x 3, equal unlabored respirations, skin warm/dry/pink. Patient states feeling better. Patient states symptoms have improved. GI: Abdomen is flat, non-distended. Vital Signs: 11:35 BP 130 / 58; Pulse 50; Resp 18; Temp 98.1(O); Pulse Ox 96% on R/A; Weight 74.84 kg; db Height 5 ft. 7 in. ; 12:00 BP 117 / 51; Pulse 51; Resp 16; Pulse Ox 97% on R/A; db 13:00 BP 150 / 60; Pulse 65; Resp 16; Pulse Ox 99% on R/A; ll1 14:49 BP 126 / 51; Pulse 58; Resp 16; Pulse Ox 95% on R/A; ll1 15:30 BP 158 / 57; Pulse 59; Resp 16; Pulse Ox 95% on R/A; ll1 11:35 Body Mass Index 25.84 (74.84 kg, 170.18 cm) db ED Course: 11:33 Patient arrived in ED. am2 11:33 Maddie Parham MD is Private Physician. am2 11:34 Timothy Wong MD is Attending Physician. yaya 11:46 Attending Physician role handed off by Timothy Wong MD rn 11:46 [place] Mcleod MD is Attending Physician. rn 11:47 Danielle Patel, RN is Primary Nurse. db 11:51 Triage completed. db 11:51 Arm band placed on right wrist. db 11:52 Maintain EMS IV. Dressing intact. Good blood return noted. Site clean \T\ dry. Gauge \T\ db site: 20 G RAC. 12:29 EKG done, by ED staff. db 16:04 Patient has correct armband on for positive identification. Bed in low position. Call ll1 light in reach. Side rails up X 1. 16:19 No provider procedures requiring assistance completed. IV discontinued, intact, db bleeding controlled, No redness/swelling at site. 16:26 Provided Education on: DISCHARGE. db Administered Medications: 12:23 Drug: NS 0.9% IV 1000 ml Route: IV; Rate: 1 bolus; Site: right antecubital; db 14:00 Follow up: Response: No adverse reaction; IV Status: Completed infusion; IV Intake: db 1000ml Medication: 16:26 VIS not applicable for this client. db Intake: 14:00 IV: 1000ml; Total: 1000ml. db Outcome: 15:51 Discharge ordered by . rn 16:19 Discharged to home ambulatory. db 16:19 Condition: stable 16:19 Discharge instructions given to patient, Instructed on discharge instructions, follow up and referral plans. 16:27 Patient left the ED. db Signatures: Timothy Wong MD MD cha Nieto, Roman, MD MD rn Moreno, Amanda am2 Shahana Oliva RN RN 1 Danielle Patel, HARPER RN db Corrections: (The following items were deleted from the chart) 16:04 16:04 Provided Education on: HIV Consent, DISCHARGE. ll1 ll1
== END 2022-10-12 16:27 | disposition home or self-care (01) ==
LOC: ER 11:33
DX: R55 Syncope and collapse (principal); I10 Essential (primary) hypertension; I25.2 Old myocardial infarction; Z88.1 Allergy status to other antibiotic agents; Z88.8 Allergy status to other drugs, medicaments and biological substances
CPT/HCPCS: 93005; 85025; 81001; 80048; 36415; 83735; 85610; 80076; 84484; 83690; 83880; 74177; 71045; J7030

== ENCOUNTER 2023-01-16 19:10 | Emergency (ER) | payer OTHER, MEDICARE ==
[2011-08-04 13:12] VITALS: BP 140/69
--- OUTSIDE RECORDS SUMMARY | 2023-01-16 19:25 | XMS REPORT | Continuity of Care Document ---
:1950 Author Organization [facility] t Address [address] [place] [address] [address] [place] [address] Care Team Providers Name Role Phone Asked, No Pcp Primary Care Physician Unavailable Reynold Curtis Attending Clinician Unavailable Mily Dobbins MA Attending Clinician Unavailable Doctor Unassigned, [place] Attending Clinician Unavailable DMITRIY ASHTON Attending Clinician Unavailable Rehab, Adc Cardiac Attending Clinician Unavailable Dmitriy Ashton MD Attending Clinician TREMAINE MILES Attending Clinician Unavailable SHEMAR_MENA_DARIEN Attending Clinician Unavailable SHERLYN SINGER Attending Clinician Unavailable Sherlyn Singer MD Attending Clinician Unknown, Attending Attending Clinician Unavailable UNKNOWN, ATTENDING Attending Clinician Unavailable KENNY DOLAN Attending Clinician Unavailable Quin Norton Attending Clinician QUIN DELUNA Attending Clinician Unavailable Liz Rangel Attending Clinician JORDAN TY Attending Clinician Unavailable Hemanth [employer], Jordan Attending Clinician LIZ WONG Attending Clinician Unavailable Lolly Jara RN Attending Clinician Unavailable Only, Ang Db Test Attending Clinician Unavailable Therapy, Adc Covid Infusion Attending Clinician Unavailable Michael Milan MD Attending Clinician MICHAEL MILAN Attending Clinician Unavailable EBMARISELA HUMPHREY Attending Clinician Unavailable Ebrahim [employer], Marisela Attending Clinician Ni Kaye RN Attending Clinician Unavailable Ferdinand Gomez DO Attending Clinician Tamiko COBURN, Issac Cohen Attending Clinician [phone] KARUNA KIRKPATRICK Attending Clinician Unavailable SHEMAR_MENA_DARIEN Admitting Clinician Unavailable SAAD GOMES Admitting Clinician Unavailable TATE FERRELL Admitting Clinician Unavailable Payers Payer Name Policy Type Policy Number Effective Date Expiration Date S ource Problems Condition Condition Condition Status Onset Resolution Last Treating Co mments Source Name Details Category Date Date Treatment Clinician Date Coronary Coronary Disease Recurre [facility] artery artery nce 10-21 ity of disease disease 00:00: [place] involving involving 00 [facility] coronary coronary artery of artery of 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 pectoris pectoris Hyperlipid Hyperlipid Disease Active M ethodi emia emia 11-[facility] 00:00: [facility]osp[facility] 00 l Essential Essential Disease Active Met hodi hypertensi hypertensi 8 st on on 00:00: Hospita 00 l Coronary Coronary Disease Active Metho di artery artery 4-06 st disease disease 00:00: Hospita involving involving 00 l [place] coronary coronary artery of artery of [facility] 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 pectoris pectoris Coronary Coronary Disease Active Metho di artery artery 4- st disease disease 00:00: Hospita involving involving 00 l [facility] coronary coronary artery of artery of [place] 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 pectoris pectoris Stented Stented Disease Active [facility] coronary coronary 4-06 st artery artery 00:00: Hospita 00 l SAH SAH Disease Recurre [facility]subarachn nce 9-14 Linda kes oid oid 00:00: Medical hemorrhage hemorrhage 00 Ce nter ) ) Vasovagal Vasovagal Disease Active [facility] Subar[facility]no Subarachno Disease Active M ethodi id bleed id bleed 10-31 st 00:00: Hospita 00 l Syncope Syncope Disease Active [facility] 10-29 [facility] 00:00: Hospita 00 l Hypoxia Hypoxia Disease Active [facility]-10 [facility] 00:00: Hospita 00 l No known No known Disease Unive rs active active ity of problems problems [facility] Allergies, Adverse Reactions, Alerts Allergy Allergy [...] C HI St ne ty to Comments) 9- [facility] Analogue adverse 00:00: Medical s reaction [...] seizure M ethodi ne ty to Comments) 10-10 st adverse 00:00: Hospita reaction 00 l s to drug Metronid Propensi Active Other (See hallucina Methodi azole ty to Comments) 7-[address] adverse 00:00: Hospita reaction 00 l s to drug NO KNOWN Drug Active Univers ALLERGIE Class ity of S [facility] Social History Social Habit Start Date Stop Date Quantity Comments Source Gender identity [facility] History of tobacco Current smoker [facility] Sexual orientation [facility] History of Social 2023-01-01 2023-01-[address] function 00:00:00 00:00:00 Hospital Exposure to 2022-08-03 2022-08-13 Not sure [facility] SARS-CoV-2 (event) 00:00:00 09:45:00 [facility] Tobacco use and 2017-07-02 2017-07-02 Smokeless [facility] exposure 00:00:00 00:00:00 tobacco non-user Hospital Alcohol intake 2016-12-07 2016-12-[address] [facility] [facility] 00:00:00 00:00:00 non-drinker of Medical Ce nter alcohol (finding) Tobacco Comment 2015-10-11 2015-10-[address] 00:00:00 00:00:00 since 1982 Hospital Alcohol Comment 2015-10-11 2015-10-11 very seldom [facility] t 00:00:00 00:00:00 Hospital Sex Ass[birth year] At [birth year] HU[facility] Grier kes 00:00:00 [facility]:00 [facility] Smoking Status Start Date Stop Date Source Unknown if ever smoked [facility] Never smoked tobacco [facility] Ex-smoker 2017-07-02 00:00:00 2017-07-02 00:00:00 [facility] Medications Ordered Filled Start Stop Current Ordering Indication Dosage Frequency Signature Comments Components Source Medication Medication Date Date Medication? Clinician (SIG) Name Name brinzolamid 2022-03- No 1[drp] Q.5D Apply 1 Methodi e-brimonidi 0-07 10-[address] ne 14:06: 00:00 eye 2 Hospita (SIMBRINZA) 45 :00 (two) l 1-0.2 % times a drops,suspe day. Both nsion eyes bisacodyl 2022-03- No 10mg Q24H Insert 10 Me thodi (DULCOLAX) 0-07 10-[address] 10 mg 14:06: 00:00 the rectum Hospi ta suppository 42 :00 daily as l needed for constipati on. albuterol 2022-03 No 2.5mg Q4H Take 2.5 Me thodi (PROVENTIL) 0-07 10-[address] 2.5 mg /3 14:06: 00:00 nebulizati H ospita mL (0.083 31 :00 on every 4 l %) (four) nebulizer hours as solution needed for shortness of breath. metoprolol 2022-03 No 25mg Q12H Take 1 Meth jeannette tartrate 0-06 10-06 tablet (25 st (LOPRESSOR) 10:11: 00:00 mg total) Hospita 25 mg 41 :00 by mouth l tablet every 12 (twelve) hours. carBAMazepi 2022-03 Yes 200mg Q.5D Take 1 Met hodi ne 0-[address] (TEGretol) 09:18: (200 mg Hosp kayley 200 mg 51 total) by l tablet mouth 2 (two) times a day. finasteride 2022-03 Yes 5mg QD Take 1 Meth jeannette (PROSCAR) 5 0-06 tablet (5 st mg tablet 09:18: mg total) Hos matilda 51 by mouth l daily. gabapentin 2022-03 Yes 900mg QD Take 3 Meth jeannette (NEURONTIN) 0-[address] 300 MG 09:18: (900 mg Hospita capsule 51 total) by l mouth daily with dinner. latanoprost 2022-03 Yes 1[drp] QD Administer [facility] (XALATAN) 0-[address] 0.005 % 09:18: both eyes Hospi ta ophthalmic 51 nightly. l solution levothyroxi 2022-03 Yes 25ug QD Take 1 Meth jeannette ne 0-06 tablet (25 st (SYNTHROID, 09:18: mcg total) Hospita LEVOTHROID) 51 by mouth l 25 MCG every tablet morning. oxybutynin 2022-03 Yes 5mg [id number] Take 1 [facility] (DITROPAN) 0-06 [id number] tablet (5 st 5 MG tablet 09:18: 3D mg total) H ospita 51 by mouth 3 l (three) times a day. dimethyl 2022-03 Yes 240mg Q.5D Take 1 Method i fumarate 0-[address] (TECFIDERA) 09:18: (240 mg Hos matilda 240 mg 51 total) by l capsule,del mouth 2 ayed (two) release(DR/ times a EC) day. BABY 2022-03 Yes Take by [facility] ASPIRIN 0-[address] ORAL 09:18: Hospita 51 l atorvastati 2022-03 Yes 80mg QD Take 1 Meth jeannette n (LIPITOR) 0-06 tablet (80 st 80 MG 09:18: mg total) Hospita tablet 51 by mouth l daily. metoprolol Yes 25mg QD Take 1 Metho di succinate 8-06 tablet (25 st XL 00:00: mg total) Hospita (TOPROL-XL) 00 by mouth l 25 mg 24 hr daily. tablet clopidogreL Yes 75mg QD Take 1 Meth jeannette (PLAVIX) 75 8-04 tablet (75 st mg tablet 00:00: mg total) Hos matilda 00 by mouth l daily. simvastatin 2022-0 2023- No 80mg Take 1 Uni vers 80 mg 4- 04-09 tablet by ity of tablet 15:28: 00:00 mouth. [place] 30 :00 [facility] simvastatin 2022-0 3- No 80mg Take 1 Uni vers 80 mg 4-09 04-09 tablet by ity of tablet 15:28: 00:00 mouth. [place] 30 :00 [facility] Lysine 500 0 Yes Take by Univ ers mg Tab 4-09 mouth. ity of 15:27: [address] metoprolol 2022-0 Yes 25mg Take 1 Unive rs tartrate 25 4-09 tablet by ity of mg tablet 15:27: mouth. [address] Lysine 500 0 Yes Take by Univ ers mg Tab 4-09 mouth. ity of 15:27: [address] metoprolol 2022-0 Yes 25mg Take 1 Unive rs tartrate 25 4-09 tablet by ity of mg tablet 15:27: mouth. [address] Lysine 500 0 Yes Take by Univ ers mg Tab 4-09 mouth. ity of 15:27: [address] metoprolol 2022-0 Yes 25mg Take 1 Unive rs tartrate 25 4-09 tablet by ity of mg tablet 15:27: mouth. [address] Lysine 500 0 Yes Take by Univ ers mg Tab 4-09 mouth. ity of 15:27: [address] metoprolol 2022-0 Yes 25mg Take 1 Unive rs tartrate 25 4-09 tablet by ity of mg tablet 15:27: mouth. [address] Lysine 500 0 Yes Take by Univ ers mg Tab 4-09 mouth. ity of 15:27: [address] metoprolol 0 Yes 25mg Take 1 Unive rs tartrate 25 4-09 tablet by ity of mg tablet 15:27: mouth. [address] Lysine 500 Yes Take by Univ ers mg Tab 4-09 mouth. ity of 15:27: [address] metoprolol 0 Yes 25mg Take 1 Unive rs tartrate 25 4-09 tablet by ity of mg tablet 15:27: mouth. [address] Lysine 500 Yes Take by Univ ers mg Tab 4-09 mouth. ity of 15:27: [address] metoprolol 0 Yes 25mg Take 1 Unive rs tartrate 25 4-09 tablet by ity of mg tablet 15:27: mouth. [address] Lysine 500 Yes Take by Univ ers mg Tab 4-09 mouth. ity of 15:27: [address] metoprolol 0 Yes 25mg Take 1 Unive rs tartrate 25 4-09 tablet by ity of mg tablet 15:27: mouth. [address] Lysine 500 0 Yes Take by Univ ers mg Tab 4-09 mouth. ity of 15:27: [address] metoprolol 2022-0 Yes 25mg Take 1 Unive rs tartrate 25 4-09 tablet by ity of mg tablet 15:27: mouth. [address] Lysine 500 0 Yes Take by Univ ers mg Tab 4-09 mouth. ity of 15:27: [address] metoprolol 0 Yes 25mg Take 1 Unive rs tartrate 25 4-09 tablet by ity of mg tablet 15:27: mouth. [address] Lysine 500 2023-0 Yes Take by Univ ers mg Tab 4-09 mouth. ity of 15:27: [address] metoprolol 0 Yes 25mg Take 1 Unive rs tartrate 25 4-09 tablet by ity of mg tablet 15:27: mouth. [address] Lysine 500 Yes Take by Univ ers mg Tab 4-09 mouth. ity of 15:27: [address] metoprolol Yes 25mg Take 1 Unive rs tartrate 25 4-09 tablet by ity of mg tablet 15:27: mouth. [address] Lysine 500 Yes Take by Univ ers mg Tab 4-09 mouth. ity of 15:27: [address] metoprolol Yes 25mg Take 1 Unive rs tartrate 25 4-09 tablet by ity of mg tablet 15:27: mouth. [address] Lysine 500 Yes Take by Univ ers mg Tab 4-09 mouth. ity of 15:27: [address] Lysine 500 Yes Take by Univ ers mg Tab 4-09 mouth. ity of 15:27: [address] metoprolol Yes 25mg Take 1 Unive rs tartrate 25 4-09 tablet by ity of mg tablet 15:27: mouth. [address] Lysine 500 Yes Take by Univ ers mg Tab 4-09 mouth. ity of 15:27: [address] metoprolol Yes 25mg Take 1 Unive rs tartrate 25 4-09 tablet by ity of mg tablet 15:27: mouth. [address] metoprolol 0 Yes 25mg Take 1 Unive rs tartrate 25 4-09 tablet by ity of mg tablet 15:27: mouth. [address] Lysine 500 Yes Take by Univ ers mg Tab 4-09 mouth. ity of 15:27: [address] metoprolol 0 Yes 25mg Take 1 Unive rs tartrate 25 4-09 tablet by ity of mg tablet 15:27: mouth. [address] Lysine 500 Yes Take by Univ ers mg Tab 4-09 mouth. ity of 15:27: [address] metoprolol 2022-0 Yes 25mg Take 1 Unive rs tartrate 25 4-09 tablet by ity of mg tablet 15:27: mouth. [address] Lysine 500 Yes Take by Univ ers mg Tab 4-09 mouth. ity of 15:27: [address] metoprolol 2022-0 Yes 25mg Take 1 Unive rs tartrate 25 4-09 tablet by ity of mg tablet 15:27: mouth. [address] Lysine 500 Yes Take by Univ ers mg Tab 4-09 mouth. ity of 15:27: [address] metoprolol 2022-0 Yes 25mg Take 1 Unive rs tartrate 25 4-09 tablet by ity of mg tablet 15:27: mouth. [address] Lysine 500 Yes Take by Univ ers mg Tab 4-09 mouth. ity of 15:27: [address] metoprolol 0 Yes 25mg Take 1 Unive rs tartrate 25 4-09 tablet by ity of mg tablet 15:27: mouth. [address] Lysine 500 Yes Take by Univ ers mg Tab 4-09 mouth. ity of 15:27: [address] metoprolol 0 Yes 25mg Take 1 Unive rs tartrate 25 4-09 tablet by ity of mg tablet 15:27: mouth. [address] Lysine 500 Yes Take by Univ ers mg Tab 4-09 mouth. ity of 15:27: [address] metoprolol 0 Yes 25mg Take 1 Unive rs tartrate 25 4-09 tablet by ity of mg tablet 15:27: mouth. [address] Lysine 500 Yes Take by Univ ers mg Tab 4-09 mouth. ity of 15:27: [address] metoprolol 2022-0 Yes 25mg Take 1 Unive rs tartrate 25 4-09 tablet by ity of mg tablet 15:27: mouth. [address] Lysine 500 0 Yes Take by Univ ers mg Tab 4-09 mouth. ity of 15:27: [address] metoprolol 2022-0 Yes 25mg Take 1 Unive rs tartrate 25 4-09 tablet by ity of mg tablet 15:27: mouth. [address] Lysine 500 Yes Take by Univ ers mg Tab 4-09 mouth. ity of 15:27: [address] metoprolol Yes 25mg Take 1 Unive rs tartrate 25 4-09 tablet by ity of mg tablet 15:27: mouth. [address] Lysine 500 Yes Take by Univ ers mg Tab 4-09 mouth. ity of 15:27: [address] metoprolol Yes 25mg Take 1 Unive rs tartrate 25 4-09 tablet by ity of mg tablet 15:27: mouth. [address] Lysine 500 Yes Take by Univ ers mg Tab 4-09 mouth. ity of 15:27: [address] Lysine 500 Yes Take by Univ ers mg Tab 4-09 mouth. ity of 15:27: [address] metoprolol Yes 25mg Take 1 Unive rs tartrate 25 4-09 tablet by ity of mg tablet 15:27: mouth. [address] Lysine 500 Yes Take by Univ ers mg Tab 4-09 mouth. ity of 15:27: [address] metoprolol Yes 25mg Take 1 Unive rs tartrate 25 4-09 tablet by ity of mg tablet 15:27: mouth. [address] metoprolol Yes 25mg Take 1 Unive rs tartrate 25 4-09 tablet by ity of mg tablet 15:27: mouth. [address] Lysine 500 Yes Take by Univ ers mg Tab 4-09 mouth. ity of 15:27: [address] metoprolol Yes 25mg Take 1 Unive rs tartrate 25 4-09 tablet by ity of mg tablet 15:27: mouth. [address] Lysine 500 Yes Take by Univ ers mg Tab 4-09 mouth. ity of 15:27: [address] metoprolol Yes 25mg Take 1 Unive rs tartrate 25 4-09 tablet by ity of mg tablet 15:27: mouth. [address] Lysine 500 Yes Take by Univ ers mg Tab 4-09 mouth. ity of 15:27: [address] metoprolol 2023-0 Yes 25mg Take 1 Unive rs tartrate 25 4-09 tablet by ity of mg tablet 15:27: mouth. [address] Lysine 500 0 Yes Take by Univ ers mg Tab 4-09 mouth. ity of 15:27: [address] metoprolol 2022-0 Yes 25mg Take 1 Unive rs tartrate 25 4-09 tablet by ity of mg tablet 15:27: mouth. [address] Lysine 500 0 Yes Take by Univ ers mg Tab 4-09 mouth. ity of 15:27: [address] metoprolol 0 Yes 25mg Take 1 Unive rs tartrate 25 4-09 tablet by ity of mg tablet 15:27: mouth. [address] Lysine 500 Yes Take by Univ ers mg Tab 4-09 mouth. ity of 15:27: [address] metoprolol Yes 25mg Take 1 Unive rs tartrate 25 4-09 tablet by ity of mg tablet 15:27: mouth. [address] Lysine 500 Yes Take by Univ ers mg Tab 4-09 mouth. ity of 15:27: [address] metoprolol 0 Yes 25mg Take 1 Unive rs tartrate 25 4-09 tablet by ity of mg tablet 15:27: mouth. [address] Lysine 500 0 Yes Take by Univ ers mg Tab 4-09 mouth. ity of 15:27: [address] metoprolol 0 Yes 25mg Take 1 Unive rs tartrate 25 4-09 tablet by ity of mg tablet 15:27: mouth. [address] Lysine 500 Yes Take by Univ ers mg Tab 4-09 mouth. ity of 15:27: [address] metoprolol 2022-0 Yes 25mg Take 1 Unive rs tartrate 25 4-09 tablet by ity of mg tablet 15:27: mouth. [address] Lysine 500 0 Yes Take by Univ ers mg Tab 4-09 mouth. ity of 15:27: [address] metoprolol 2022-0 Yes 25mg Take 1 Unive rs tartrate 25 4-09 tablet by ity of mg tablet 15:27: mouth. [address] Lysine 500 Yes Take by Univ ers mg Tab 4-09 mouth. ity of 15:27: [address] metoprolol 0 Yes 25mg Take 1 Unive rs tartrate 25 4-09 tablet by ity of mg tablet 15:27: mouth. [address] Lysine 500 0 Yes Take by Univ ers mg Tab 4-09 mouth. ity of 15:27: [address] metoprolol 0 Yes 25mg Take 1 Unive rs tartrate 25 4-09 tablet by ity of mg tablet 15:27: mouth. [address] Lysine 500 0 Yes Take by Univ ers mg Tab 4-09 mouth. ity of 15:27: [address] metoprolol 0 Yes 25mg Take 1 Unive rs tartrate 25 4-09 tablet by ity of mg tablet 15:27: mouth. [address] Lysine 500 Yes Take by Univ ers mg Tab 4-09 mouth. ity of 15:27: [address] metoprolol 0 Yes 25mg Take 1 Unive rs tartrate 25 4-09 tablet by ity of mg tablet 15:27: mouth. [address] Lysine 500 Yes Take by Univ ers mg Tab 4-09 mouth. ity of 15:27: [address] metoprolol 0 Yes 25mg Take 1 Unive rs tartrate 25 4-09 tablet by ity of mg tablet 15:27: mouth. [address] Lysine 500 Yes Take by Univ ers mg Tab 4-09 mouth. ity of 15:27: [address] metoprolol 0 Yes 25mg Take 1 Unive rs tartrate 25 4-09 tablet by ity of mg tablet 15:27: mouth. [address] Lysine 500 0 Yes Take by Univ ers mg Tab 4-09 mouth. ity of 15:27: [address] metoprolol 2022-0 Yes 25mg Take 1 Unive rs tartrate 25 4-09 tablet by ity of mg tablet 15:27: mouth. [address] Lysine 500 0 Yes Take by Univ ers mg Tab 4-09 mouth. ity of 15:27: [address] metoprolol 0 Yes 25mg Take 1 Unive rs tartrate 25 4-09 tablet by ity of mg tablet 15:27: mouth. [address] Lysine 500 Yes Take by Univ ers mg Tab 4-09 mouth. ity of 15:27: [address] metoprolol 2022-0 Yes 25mg Take 1 Unive rs tartrate 25 4-09 tablet by ity of mg tablet 15:27: mouth. [address] Lysine 500 Yes Take by Univ ers mg Tab 4-09 mouth. ity of 15:27: [address] metoprolol Yes 25mg Take 1 Unive rs tartrate 25 4-09 tablet by ity of mg tablet 15:27: mouth. [address] Lysine 500 Yes Take by Univ ers mg Tab 4-09 mouth. ity of 15:27: [address] metoprolol Yes 25mg Take 1 Unive rs tartrate 25 4-09 tablet by ity of mg tablet 15:27: mouth. [address] Lysine 500 Yes Take by Univ ers mg Tab 4-09 mouth. ity of 15:27: [address] metoprolol Yes 25mg Take 1 Unive rs tartrate 25 4-09 tablet by ity of mg tablet 15:27: mouth. [address] Lysine 500 Yes Take by Univ ers mg Tab 4-09 mouth. ity of 15:27: [address] Lysine 500 Yes Take by Univ ers mg Tab 4-09 mouth. ity of 15:27: [address] metoprolol 2022-0 Yes 25mg Take 1 Unive rs tartrate 25 4-09 tablet by ity of mg tablet 15:27: mouth. [address] metoprolol 2022-0 Yes 25mg Take 1 Unive rs tartrate 25 4-09 tablet by ity of mg tablet 15:27: mouth. [address] Lysine 500 0 Yes Take by Univ ers mg Tab 4-09 mouth. ity of 15:27: [address] metoprolol 2022-0 Yes 25mg Take 1 Unive rs tartrate 25 4-09 tablet by ity of mg tablet 15:27: mouth. [address] Lysine 500 Yes Take by Univ ers mg Tab 4-09 mouth. ity of 15:27: [address] metoprolol 2022-0 Yes 25mg Take 1 Unive rs tartrate 25 4-09 tablet by ity of mg tablet 15:27: mouth. [address] Lysine 500 0 Yes Take by Univ ers mg Tab 4-09 mouth. ity of 15:27: [address] metoprolol 2022-0 Yes 25mg Take 1 Unive rs tartrate 25 4-09 tablet by ity of mg tablet 15:27: mouth. [address] Lysine 500 Yes Take by Univ ers mg Tab 4-09 mouth. ity of 15:27: [address] metoprolol 0 Yes 25mg Take 1 Unive rs tartrate 25 4-09 tablet by ity of mg tablet 15:27: mouth. [address] Lysine 500 Yes Take by Univ ers mg Tab 4-09 mouth. ity of 15:27: [address] metoprolol 0 Yes 25mg Take 1 Unive rs tartrate 25 4-09 tablet by ity of mg tablet 15:27: mouth. [address] Lysine 500 Yes Take by Univ ers mg Tab 4-09 mouth. ity of 15:27: [address] metoprolol 0 Yes 25mg Take 1 Unive rs tartrate 25 4-09 tablet by ity of mg tablet 15:27: mouth. [address] Lysine 500 Yes Take by Univ ers mg Tab 4-09 mouth. ity of 15:27: [address] metoprolol 2022-0 Yes 25mg Take 1 Unive rs tartrate 25 4-09 tablet by ity of mg tablet 15:27: mouth. [address] Lysine 500 0 Yes Take by Univ ers mg Tab 4-09 mouth. ity of 15:27: [address] metoprolol 2022-0 Yes 25mg Take 1 Unive rs tartrate 25 4-09 tablet by ity of mg tablet 15:27: mouth. [address] Lysine 500 0 Yes Take by Univ ers mg Tab 4-09 mouth. ity of 15:27: [address] metoprolol 0 Yes 25mg Take 1 Unive rs tartrate 25 4-09 tablet by ity of mg tablet 15:27: mouth. [address] Lysine 500 0 Yes Take by Univ ers mg Tab 4-09 mouth. ity of 15:27: [address] metoprolol 0 Yes 25mg Take 1 Unive rs tartrate 25 4-09 tablet by ity of mg tablet 15:27: mouth. [address] Lysine 500 0 Yes Take by Univ ers mg Tab 4-09 mouth. ity of 15:27: [address] metoprolol 0 Yes 25mg Take 1 Unive rs tartrate 25 4-09 tablet by ity of mg tablet 15:27: mouth. [address] Lysine 500 Yes Take by Univ ers mg Tab 4-09 mouth. ity of 15:27: [address] metoprolol Yes 25mg Take 1 Unive rs tartrate 25 4-09 tablet by ity of mg tablet 15:27: mouth. [address] Lysine 500 Yes Take by Univ ers mg Tab 4-09 mouth. ity of 15:27: [address] metoprolol 0 Yes 25mg Take 1 Unive rs tartrate 25 4-09 tablet by ity of mg tablet 15:27: mouth. [address] Lysine 500 Yes Take by Univ ers mg Tab 4-09 mouth. ity of 15:27: [address] metoprolol 0 Yes 25mg Take 1 Unive rs tartrate 25 4-09 tablet by ity of mg tablet 15:27: mouth. [address] Lysine 500 0 Yes Take by Univ ers mg Tab 4-09 mouth. ity of 15:27: [address] metoprolol 2022-0 Yes 25mg Take 1 Unive rs tartrate 25 4-09 tablet by ity of mg tablet 15:27: mouth. [address] Lysine 500 0 Yes Take by Univ ers mg Tab 4-09 mouth. ity of 15:27: [address] metoprolol 2022-0 Yes 25mg Take 1 Unive rs tartrate 25 4-09 tablet by ity of mg tablet 15:27: mouth. [address] Lysine 500 Yes Take by Univ ers mg Tab 4-09 mouth. ity of 15:27: [address] metoprolol 2022-0 Yes 25mg Take 1 Unive rs tartrate 25 4-09 tablet by ity of mg tablet 15:27: mouth. [address] Lysine 500 Yes Take by Univ ers mg Tab 4-09 mouth. ity of 15:27: [address] metoprolol 0 Yes 25mg Take 1 Unive rs tartrate 25 4-09 tablet by ity of mg tablet 15:27: mouth. [address] Lysine 500 Yes Take by Univ ers mg Tab 4-09 mouth. ity of 15:27: [address] metoprolol 0 Yes 25mg Take 1 Unive rs tartrate 25 4-09 tablet by ity of mg tablet 15:27: mouth. [address] Lysine 500 Yes Take by Univ ers mg Tab 4-09 mouth. ity of 15:27: [address] metoprolol 0 Yes 25mg Take 1 Unive rs tartrate 25 4-09 tablet by ity of mg tablet 15:27: mouth. [address] Lysine 500 Yes Take by Univ ers mg Tab 4-09 mouth. ity of 15:27: [address] metoprolol 0 Yes 25mg Take 1 Unive rs tartrate 25 4-09 tablet by ity of mg tablet 15:27: mouth. [address] Lysine 500 Yes Take by Univ ers mg Tab 4-09 mouth. ity of 15:27: [address] metoprolol 0 Yes 25mg Take 1 Unive rs tartrate 25 4-09 tablet by ity of mg tablet 15:27: mouth. [address] Lysine 500 0 Yes Take by Univ ers mg Tab 4-09 mouth. ity of 15:27: [address] metoprolol 2022-0 Yes 25mg Take 1 Unive rs tartrate 25 4-09 tablet by ity of mg tablet 15:27: mouth. [address] Lysine 500 Yes Take by Univ ers mg Tab 4-09 mouth. ity of 15:27: [address] metoprolol 0 Yes 25mg Take 1 Unive rs tartrate 25 4-09 tablet by ity of mg tablet 15:27: mouth. [address] Lysine 500 0 Yes Take by Univ ers mg Tab 4-09 mouth. ity of 15:27: [address] metoprolol 0 Yes 25mg Take 1 Unive rs tartrate 25 4-09 tablet by ity of mg tablet 15:27: mouth. [address] Lysine 500 0 Yes Take by Univ ers mg Tab 4-09 mouth. ity of 15:27: [address] metoprolol 0 Yes 25mg Take 1 [facility] tartrate 25 4-09 tablet by ity of mg tablet 15:27: mouth. [address] Lysine 500 Yes Take by Univ ers mg Tab 4-09 mouth. ity of 15:27: [address] metoprolol Yes 25mg Take 1 [facility] rs tartrate 25 4-09 tablet by ity of mg tablet 15:27: mouth. [address] Lysine 500 Yes Take by Univ ers mg Tab 4-09 mouth. ity of 15:27: [address] metoprolol 0 Yes 25mg Take 1 [facility] rs tartrate 25 4-09 tablet by ity of mg tablet 15:27: mouth. [address] Lysine 500 Yes Take by Univ ers mg Tab 4-09 mouth. ity of 15:27: [address] metoprolol 0 Yes 25mg Take 1 [facility] rs tartrate 25 4-09 tablet by ity of mg tablet 15:27: mouth. [address] Lysine 500 0 Yes Take by Univ ers mg Tab 4-09 mouth. ity of 15:27: [address] metoprolol 2022-0 Yes 25mg Take 1 [facility] rs tartrate 25 4-09 tablet by ity of mg tablet 15:27: mouth. [address] Lysine 500 0 Yes Take by Univ ers mg Tab 4-09 mouth. ity of 15:27: [address] metoprolol 2022-0 Yes 25mg Take 1 [facility] rs tartrate 25 4-09 tablet by ity of mg tablet 15:27: mouth. [address] Lysine 500 Yes Take by Univ ers mg Tab 4-09 mouth. ity of 15:27: [address] metoprolol 0 Yes 25mg Take 1 [facility] rs tartrate 25 4-09 tablet by ity of mg tablet 15:27: mouth. [address] Lysine 500 Yes Take by Univ ers mg Tab 4-09 mouth. ity of 15:27: [address] metoprolol 0 Yes 25mg Take 1 [facility] rs tartrate 25 4-09 tablet by ity of mg tablet 15:27: mouth. [address] Lysine 500 Yes Take by Univ ers mg Tab 4-09 mouth. ity of 15:27: [address] metoprolol 0 Yes 25mg Take 1 [facility] rs tartrate 25 4-09 tablet by ity of mg tablet 15:27: mouth. [address] Lysine 500 Yes Take by [facility] ers mg Tab 4-09 mouth. ity of 15:27: [address] metoprolol 0 Yes 25mg Take 1 [facility] rs tartrate 25 4-09 tablet by ity of mg tablet 15:27: mouth. [address] Lysine 500 Yes Take by [facility] mg Tab 4-09 mouth. ity of 15:27: [address] metoprolol 0 Yes 25mg Take 1 [facility] rs tartrate 25 4-09 tablet by ity of mg tablet 15:27: mouth. [address] Lysine 500 Yes Take by [facility] mg Tab 4-09 mouth. ity of 15:27: [address] metoprolol 0 Yes 25mg Take 1 [facility] rs tartrate 25 4-09 tablet by ity of mg tablet 15:27: mouth. [address] Lysine 500 Yes Take by [facility] mg Tab 4-09 mouth. ity of 15:27: [address] metoprolol 0 Yes 25mg Take 1 [facility] rs tartrate 25 4-09 tablet by ity of mg tablet 15:27: mouth. [address] Lysine 500 Yes Take by [facility] ers mg Tab 4-09 mouth. ity of 15:27: [address] metoprolol 3-0 Yes 25mg Take 1 [facility] rs tartrate 25 4-09 tablet by ity of mg tablet 15:27: mouth. [address] Lysine 500 2022-0 Yes Take by [facility] mg Tab 4-09 mouth. ity of 15:27: [address] metoprolol 3-0 Yes 25mg Take 1 [facility] rs tartrate 25 4-09 tablet by ity of mg tablet 15:27: mouth. [address] Lysine 500 2022-0 Yes Take by [facility] mg Tab 4-09 mouth. ity of 15:27: [address] metoprolol 3-0 Yes 25mg Take 1 [facility] rs tartrate 25 4-09 tablet by ity of mg tablet 15:27: mouth. [address] Lysine 500 2022-0 Yes Take by [facility] mg Tab 4-09 mouth. ity of 15:27: [address] metoprolol 3-0 Yes 25mg Take 1 [facility] rs tartrate 25 4-09 tablet by ity of mg tablet 15:27: mouth. [address] Lysine 500 2022-0 Yes Take by [facility] mg Tab 4-09 mouth. ity of 15:27: [address] metoprolol 3-0 Yes 25mg Take 1 [facility] rs tartrate 25 4-09 tablet by ity of mg tablet 15:27: mouth. [address] gabapentin 2023-0 Yes 600mg Take 1 [facility] 600 mg 4-09 tablet by ity of tablet 15:12: mouth. [address] gabapentin 2023-0 Yes 600mg Take 1 [facility] 600 mg 4-09 tablet by ity of tablet 15:12: mouth. [address] gabapentin 2023-0 Yes 600mg Take 1 [facility] 600 mg 4-09 tablet by ity of tablet 15:12: mouth. [address] gabapentin 2023-0 Yes 600mg Take 1 [facility] 600 mg 4-09 tablet by ity of tablet 15:12: mouth. [address] gabapentin 2023-0 Yes 600mg Take 1 [facility] 600 mg 4-09 tablet by ity of tablet 15:12: mouth. [address] gabapentin 2023-0 Yes 600mg Take 1 [facility] 600 mg 4-09 tablet by ity of tablet 15:12: mouth. [address] Branch gabapentin 2023-0 Yes 600mg Take 1 [facility] 600 mg 4-09 tablet by ity of tablet 15:12: mouth. [address] Branch gabapentin 2023-0 Yes 600mg Take 1 [facility] 600 mg 4-09 tablet by ity of tablet 15:12: mouth. [address] Branch gabapentin 2023-0 Yes 600mg Take 1 [facility] 600 mg 4-09 tablet by ity of tablet 15:12: mouth. [address] Branch gabapentin 2023-0 Yes 600mg Take 1 [facility] 600 mg 4-09 tablet by ity of tablet 15:12: mouth. [address] Branch gabapentin 2023-0 Yes 600mg Take 1 [facility] 600 mg 4-09 tablet by ity of tablet 15:12: mouth. [address] Branch gabapentin 2023-0 Yes 600mg Take 1 [facility] 600 mg 4-09 tablet by ity of tablet 15:12: mouth. [address] gabapentin 2023-0 Yes 600mg Take 1 [facility] 600 mg 4-09 tablet by ity of tablet 15:12: mouth. [address] Branch gabapentin 2023-0 Yes 600mg Take 1 [facility] 600 mg 4-09 tablet by ity of tablet 15:12: mouth. [address] Branch gabapentin 2023-0 Yes 600mg Take 1 [facility] 600 mg 4-09 tablet by ity of tablet 15:12: mouth. [address] gabapentin 2023-0 Yes 600mg Take 1 [facility] 600 mg 4-09 tablet by ity of tablet 15:12: mouth. [address] gabapentin 2023-0 Yes 600mg Take 1 [facility] 600 mg 4-09 tablet by ity of tablet 15:12: mouth. [address] gabapentin 2023-0 Yes 600mg Take 1 [facility] 600 mg 4-09 tablet by ity of tablet 15:12: mouth. [address] Branch gabapentin 2023-0 Yes 600mg Take 1 [facility] 600 mg 4-09 tablet by ity of tablet 15:12: mouth. [address] gabapentin 2023-0 Yes 600mg Take 1 [facility] 600 mg 4-09 tablet by ity of tablet 15:12: mouth. [address] gabapentin 2023-0 Yes 600mg Take 1 [facility] 600 mg 4-09 tablet by ity of tablet 15:12: mouth. [address] Branch gabapentin 2023-0 Yes 600mg Take 1 [facility] 600 mg 4-09 tablet by ity of tablet 15:12: mouth. [address] Branch gabapentin 2023-0 Yes 600mg Take 1 [facility] 600 mg 4-09 tablet by ity of tablet 15:12: mouth. [address] Branch gabapentin 2023-0 Yes 600mg Take 1 [facility] 600 mg 4-09 tablet by ity of tablet 15:12: mouth. [address] Branch gabapentin 2023-0 Yes 600mg Take 1 [facility] 600 mg 4-09 tablet by ity of tablet 15:12: mouth. [address] [facility] gabapentin 2023-0 Yes 600mg Take 1 [facility] 600 mg 4-09 tablet by ity of tablet 15:12: mouth. [address] [facility] gabapentin 2023-0 Yes 600mg Take 1 [facility] 600 mg 4-09 tablet by ity of tablet 15:12: mouth. [address] gabapentin 2023-0 Yes 600mg Take 1 [facility] 600 mg 4-09 tablet by ity of tablet 15:12: mouth. [address] [facility] gabapentin 2023-0 Yes 600mg Take 1 [facility] 600 mg 4-09 tablet by ity of tablet 15:12: mouth. [address] gabapentin 2023-0 Yes 600mg Take 1 [facility] 600 mg 4-09 tablet by ity of tablet 15:12: mouth. [address] gabapentin 2023-0 Yes 600mg Take 1 [facility] 600 mg 4-09 tablet by ity of tablet 15:12: mouth. [address] gabapentin 2023-0 Yes 600mg Take 1 [facility] 600 mg 4-09 tablet by ity of tablet 15:12: mouth. [address] Branch gabapentin 2023-0 Yes 600mg Take 1 [facility] 600 mg 4-09 tablet by ity of tablet 15:12: mouth. [address] gabapentin 2023-0 Yes 600mg Take 1 [facility] 600 mg 4-09 tablet by ity of tablet 15:12: mouth. [address] gabapentin 2023-0 Yes 600mg Take 1 [facility] 600 mg 4-09 tablet by ity of tablet 15:12: mouth. [address] gabapentin 2023-0 Yes 600mg Take 1 [facility] 600 mg 4-09 tablet by ity of tablet 15:12: mouth. [address] gabapentin 2023-0 Yes 600mg Take 1 [facility] 600 mg 4-09 tablet by ity of tablet 15:12: mouth. [address] [facility] gabapentin 2023-0 Yes 600mg Take 1 [facility] 600 mg 4-09 tablet by ity of tablet 15:12: mouth. [address] gabapentin 2023-0 Yes 600mg Take 1 [facility] 600 mg 4-09 tablet by ity of tablet 15:12: mouth. [address] [facility] gabapentin 2023-0 Yes 600mg Take 1 [facility] 600 mg 4-09 tablet by ity of tablet 15:12: mouth. [address] [facility] gabapentin 2023-0 Yes 600mg Take 1 [facility] 600 mg 4-09 tablet by ity of tablet 15:12: mouth. [address] gabapentin 2023-0 Yes 600mg Take 1 [facility] 600 mg 4-09 tablet by ity of tablet 15:12: mouth. [address] gabapentin 2023-0 Yes 600mg Take 1 [facility] 600 mg 4-09 tablet by ity of tablet 15:12: mouth. [address] gabapentin 2023-0 Yes 600mg Take 1 [facility] 600 mg 4-09 tablet by ity of tablet 15:12: mouth. [address] gabapentin 2023-0 Yes 600mg Take 1 [facility] 600 mg 4-09 tablet by ity of tablet 15:12: mouth. [address] gabapentin 2023-0 Yes 600mg Take 1 [facility] 600 mg 4-09 tablet by ity of tablet 15:12: mouth. [address] gabapentin 2023-0 Yes 600mg Take 1 [facility] 600 mg 4-09 tablet by ity of tablet 15:12: mouth. [address] Branch gabapentin 2023-0 Yes 600mg Take 1 [facility] 600 mg 4-09 tablet by ity of tablet 15:12: mouth. [address] gabapentin 2023-0 Yes 600mg Take 1 [facility] 600 mg 4-09 tablet by ity of tablet 15:12: mouth. [address] gabapentin 2023-0 Yes 600mg Take 1 [facility] 600 mg 4-09 tablet by ity of tablet 15:12: mouth. [address] gabapentin 2023-0 Yes 600mg Take 1 [facility] 600 mg 4-09 tablet by ity of tablet 15:12: mouth. [address] gabapentin 2023-0 Yes 600mg Take 1 [facility] 600 mg 4-09 tablet by ity of tablet 15:12: mouth. [address] Branch gabapentin 2023-0 Yes 600mg Take 1 [facility] 600 mg 4-09 tablet by ity of tablet 15:12: mouth. [address] gabapentin 2023-0 Yes 600mg Take 1 [facility] 600 mg 4-09 tablet by ity of tablet 15:12: mouth. [address] gabapentin 2023-0 Yes 600mg Take 1 [facility] 600 mg 4-09 tablet by ity of tablet 15:12: mouth. [address] [facility] gabapentin 2023-0 Yes 600mg Take 1 [facility] 600 mg 4-09 tablet by ity of tablet 15:12: mouth. [address] [facility] gabapentin 2023-0 Yes 600mg Take 1 [facility] 600 mg 4-09 tablet by ity of tablet 15:12: mouth. [address] gabapentin 2023-0 Yes 600mg Take 1 [facility] 600 mg 4-09 tablet by ity of tablet 15:12: mouth. [address] gabapentin 2023-0 Yes 600mg Take 1 [facility] 600 mg 4-09 tablet by ity of tablet 15:12: mouth. [address] gabapentin 2023-0 Yes 600mg Take 1 [facility] 600 mg 4-09 tablet by ity of tablet 15:12: mouth. [address] gabapentin 2023-0 Yes 600mg Take 1 [facility] 600 mg 4-09 tablet by ity of tablet 15:12: mouth. [address] gabapentin 2023-0 Yes 600mg Take 1 [facility] 600 mg 4-09 tablet by ity of tablet 15:12: mouth. [address] [facility] gabapentin 2023-0 Yes 600mg Take 1 [facility] 600 mg 4-09 tablet by ity of tablet 15:12: mouth. [address] gabapentin 2023-0 Yes 600mg Take 1 [facility] 600 mg 4-09 tablet by ity of tablet 15:12: mouth. [address] gabapentin 2023-0 Yes 600mg Take 1 [facility] 600 mg 4-09 tablet by ity of tablet 15:12: mouth. [address] gabapentin 2023-0 Yes 600mg Take 1 [facility] 600 mg 4-09 tablet by ity of tablet 15:12: mouth. [place] [facility] gabapentin 2023-0 Yes 600mg Take 1 [facility] 600 mg 4-09 tablet by ity of tablet 15:12: mouth. [address] [facility] gabapentin 2023-0 Yes 600mg Take 1 [facility] 600 mg 4-09 tablet by ity of tablet 15:12: mouth. [address] [facility] gabapentin 2023-0 Yes 600mg Take 1 [facility] 600 mg 4-09 tablet by ity of tablet 15:12: mouth. [address] gabapentin 2023-0 Yes 600mg Take 1 [facility] 600 mg 4-09 tablet by ity of tablet 15:12: mouth. [address] [facility] gabapentin 2023-0 Yes 600mg Take 1 [facility] 600 mg 4-09 tablet by ity of tablet 15:12: mouth. [address] [facility] gabapentin 2023-0 Yes 600mg Take 1 [facility] 600 mg 4-09 tablet by ity of tablet 15:12: mouth. [address] gabapentin 2023-0 Yes 600mg Take 1 [facility] 600 mg 4-09 tablet by ity of tablet 15:12: mouth. [address] gabapentin 2023-0 Yes 600mg Take 1 [facility] 600 mg 4-09 tablet by ity of tablet 15:12: mouth. [address] gabapentin 2023-0 Yes 600mg Take 1 [facility] 600 mg 4-09 tablet by ity of tablet 15:12: mouth. [address] gabapentin 2023-0 Yes 600mg Take 1 [facility] 600 mg 4-09 tablet by ity of tablet 15:12: mouth. [address] gabapentin 2023-0 Yes 600mg Take 1 [facility] 600 mg 4-09 tablet by ity of tablet 15:12: mouth. [address] [facility] gabapentin 2023-0 Yes 600mg Take 1 [facility] 600 mg 4-09 tablet by ity of tablet 15:12: mouth. [address] gabapentin 2023-0 Yes 600mg Take 1 [facility] 600 mg 4-09 tablet by ity of tablet 15:12: mouth. [address] [facility] gabapentin 2023-0 Yes 600mg Take 1 [facility] 600 mg 4-09 tablet by ity of tablet 15:12: mouth. [address] gabapentin 2023-0 Yes 600mg Take 1 [facility] 600 mg 4-09 tablet by ity of tablet 15:12: mouth. [address] gabapentin 2023-0 Yes 600mg Take 1 [facility] 600 mg 4-09 tablet by ity of tablet 15:12: mouth. [place] [address] [facility] gabapentin 2023-0 Yes 600mg Take 1 [facility] 600 mg 4-09 tablet by ity of tablet 15:12: mouth. [place] [address] [facility] gabapentin 2023-0 Yes 600mg Take 1 [facility] 600 mg 4-09 tablet by ity of tablet 15:12: mouth. [address] [facility] gabapentin 2023-0 Yes 600mg Take 1 [facility] 600 mg 4-09 tablet by ity of tablet 15:12: mouth. [address] [facility] gabapentin 2023-0 Yes 600mg Take 1 [facility] 600 mg 4-09 tablet by ity of tablet 15:12: mouth. [address] [facility] gabapentin 2023-0 Yes 600mg Take 1 [facility] 600 mg 4-09 tablet by ity of tablet 15:12: mouth. [address] [facility] gabapentin 2023-0 Yes 600mg Take 1 [facility] 600 mg 4-09 tablet by ity of tablet 15:12: mouth. [address] [facility] gabapentin 2023-0 Yes 600mg Take 1 [facility] 600 mg 4-09 tablet by ity of tablet 15:12: mouth. [address] [facility] gabapentin 2023-0 Yes 600mg Take 1 [facility] 600 mg 4-09 tablet by ity of tablet 15:12: mouth. [address] [facility] gabapentin 2023-0 Yes 600mg Take 1 [facility] 600 mg 4-09 tablet by ity of tablet 15:12: mouth. [address] [facility] gabapentin 2023-0 Yes 600mg Take 1 [facility] 600 mg 4-09 tablet by ity of tablet 15:12: mouth. [address] [facility] gabapentin 2023-0 Yes 600mg Take 1 [facility] 600 mg 4-09 tablet by ity of tablet 15:12: mouth. [address] [facility] gabapentin 2023-0 Yes 600mg Take 1 [facility] 600 mg 4-09 tablet by ity of tablet 15:12: mouth. [address] [facility] gabapentin 2023-0 Yes 600mg Take 1 [facility] 600 mg 4-09 tablet by ity of tablet 15:12: mouth. [address] doxycycline 2023-0 2023- No [id number] 100mg Take 1 [facility] hyclate 100 4-09 04-20 tablet by it y of mg tablet 00:00: 04:59 mouth in [place] as 00 :00 the Medical morning Branch and 1 tablet in the evening. Do all this for 10 days. doxycycline 2022- No [id number] 100mg Take 1 [facility] hyclate 100 07-05-20 tablet by it y of mg tablet 00:00: 04:59 mouth in [place] as 00 :00 the Medical morning Branch and 1 tablet in the evening. Do all this for 10 days. doxycycline 2022-2022- No [id number] 100mg Take 1 [facility] hyclate 100 07-05-20 tablet by it y of mg tablet 00:00: 04:59 mouth in [place] as 00 :00 the Medical morning Branch and 1 tablet in the evening. Do all this for 10 days. doxycycline 2022-2022- No [id number] 100mg Take 1 [facility] hyclate 100 07-05-20 tablet by it y of mg tablet 00:00: 04:59 mouth in [place] as 00 :00 the Medical morning Branch and 1 tablet in the evening. Do all this for 10 days. amoxicillin 2022- No [id number] 1{tbl} Take 1 Univers -clavulanat 07-05- [id number] tablet by ity of e 00:00: 04:59 mouth in [place] (AUGMENTIN) 00 :00 the Medical 875-125 mg morning Branch per tablet and 1 tablet in the evening. Do all this for 7 days. amoxicillin 2022- No [id number] 1{tbl} Take 1 Univers -clavulanat -11 30- [id number] tablet by ity of e 00:00: 04:59 mouth in [place] (AUGMENTIN) 00 :00 the Medical 875-125 mg morning Branch per tablet and 1 tablet in the evening. Do all this for 7 days. amoxicillin 2022- No [id number] 1{tbl} Take 1 Univers -clavulanat 4- [id number] tablet by ity of e 00:00: 04:59 mouth in [place] (AUGMENTIN) 00 :00 the Medical 875-125 mg morning Branch per tablet and 1 tablet in the evening. Do all this for 7 days. mineral Yes APPLY 1/4 Unive rs oil/petrola [...] 250 mg 2-15 ity of tablet 00:00: [place] 00 [facility] carBAMazepi 2021-03 Yes 400mg 2 tablets. Univers ne 200 mg 2-15 ity of tablet 00:00: [place] 00 [facility] clopidogreL 2021-03 Yes 75mg 1 tablet. U nivers 75 mg 2-15 ity of tablet 00:00: [place] 00 [facility] gabapentin 2021-03 Yes 600mg 2 Univer s 300 mg 2-15 capsules. ity of capsule 00:00: [address] terbinafine 2021-03 Yes 250mg 1 tablet. Univers HCL 250 mg 2-15 ity of tablet 00:00: [address] carBAMazepi 2021-03 Yes 400mg 2 tablets. Univers ne 200 mg 2-15 ity of tablet 00:00: [address] clopidogreL 2021-03 Yes 75mg 1 tablet. U nivers 75 mg 2-15 ity of tablet 00:00: [address] gabapentin 2021-03 Yes 600mg 2 Univer s 300 mg 2-15 capsules. ity of capsule 00:00: [address] terbinafine 2021-03 Yes 250mg 1 tablet. Univers HCL 250 mg 2-15 ity of tablet 00:00: [address] carBAMazepi 2021-03 Yes 400mg 2 tablets. Univers ne 200 mg 2-15 ity of tablet 00:00: [address] clopidogreL 2021-03 Yes 75mg 1 tablet. U nivers 75 mg 2-15 ity of tablet 00:00: [address] gabapentin 2021-03 Yes 600mg 2 Univer s 300 mg 2-15 capsules. ity of capsule 00:00: [address] terbinafine 2021-03 Yes 250mg 1 tablet. Univers HCL 250 mg 2-15 ity of tablet 00:00: [address] carBAMazepi 2021-03 Yes 400mg 2 tablets. Univers ne 200 mg 2-15 ity of tablet 00:00: [address] clopidogreL 2021-03 Yes 75mg 1 tablet. U nivers 75 mg 2-15 ity of tablet 00:00: [address] gabapentin 2021-03 Yes 600mg 2 Univer s 300 mg 2-15 capsules. ity of capsule 00:00: [address] terbinafine 2021-03 Yes 250mg 1 tablet. Univers HCL 250 mg 2-15 ity of tablet 00:00: [address] carBAMazepi 2021-03 Yes 400mg 2 tablets. Univers ne 200 mg 2-15 ity of tablet 00:00: [address] clopidogreL 2021-03 Yes 75mg 1 tablet. U nivers 75 mg 2-15 ity of tablet 00:00: [address] gabapentin 2021-03 Yes 600mg 2 Univer s 300 mg 2-15 capsules. ity of capsule 00:00: [address] terbinafine 2021-03 Yes 250mg 1 tablet. Univers HCL 250 mg 2-15 ity of tablet 00:00: [address] carBAMazepi 2021-03 Yes 400mg 2 tablets. Univers ne 200 mg 2-15 ity of tablet 00:00: [address] clopidogreL 2021-03 Yes 75mg 1 tablet. U nivers 75 mg 2-15 ity of tablet 00:00: [address] gabapentin 2021-03 Yes 600mg 2 Univer s 300 mg 2-15 capsules. ity of capsule 00:00: [address] terbinafine 2021-03 Yes 250mg 1 tablet. Univers HCL 250 mg 2-15 ity of tablet 00:00: [address] carBAMazepi 2021-03 Yes 400mg 2 tablets. Univers ne 200 mg 2-15 ity of tablet 00:00: [address] clopidogreL 2021-03 Yes 75mg 1 tablet. U nivers 75 mg 2-15 ity of tablet 00:00: [address] gabapentin 2021-03 Yes 600mg 2 Univer s 300 mg 2-15 capsules. ity of capsule 00:00: [address] terbinafine 2021-03 Yes 250mg 1 tablet. Univers HCL 250 mg 2-15 ity of tablet 00:00: [address] carBAMazepi 2021-03 Yes 400mg 2 tablets. Univers ne 200 mg 2-15 ity of tablet 00:00: [address] clopidogreL 2021-03 Yes 75mg 1 tablet. U nivers 75 mg 2-15 ity of tablet 00:00: [address] gabapentin 2021-03 Yes 600mg 2 Univer s 300 mg 2-15 capsules. ity of capsule 00:00: [address] terbinafine 2021-03 Yes 250mg 1 tablet. Univers HCL 250 mg 2-15 ity of tablet 00:00: [address] carBAMazepi 2021-03 Yes 400mg 2 tablets. Univers ne 200 mg 2-15 ity of tablet 00:00: [address] clopidogreL 2021-03 Yes 75mg 1 tablet. U nivers 75 mg 2-15 ity of tablet 00:00: [address] carBAMazepi 2021-03 Yes 400mg 2 tablets. Univers ne 200 mg 2-15 ity of tablet 00:00: [address] clopidogreL 2021-03 Yes 75mg 1 tablet. U nivers 75 mg 2-15 ity of tablet 00:00: [address] gabapentin 2021-03 Yes 600mg 2 Univer s 300 mg 2-15 capsules. ity of capsule 00:00: [address] terbinafine 2021-03 Yes 250mg 1 tablet. Univers HCL 250 mg 2-15 ity of tablet 00:00: [address] carBAMazepi 2021-03 Yes 400mg 2 tablets. Univers ne 200 mg 2-15 ity of tablet 00:00: [address] clopidogreL 2021-03 Yes 75mg 1 tablet. U nivers 75 mg 2-15 ity of tablet 00:00: [address] gabapentin 2021-03 Yes 600mg 2 Univer s 300 mg 2-15 capsules. ity of capsule 00:00: [address] gabapentin 2021-03 Yes 600mg 2 Univer s 300 mg 2-15 capsules. ity of capsule 00:00: [address] terbinafine 2021-03 Yes 250mg 1 tablet. Univers HCL 250 mg 2-15 ity of tablet 00:00: [address] carBAMazepi 2021-03 Yes 400mg 2 tablets. Univers ne 200 mg 2-15 ity of tablet 00:00: [address] clopidogreL 2021-03 Yes 75mg 1 tablet. U nivers 75 mg 2-15 ity of tablet 00:00: [address] gabapentin 2021-03 Yes 600mg 2 Univer s 300 mg 2-15 capsules. ity of capsule 00:00: [address] terbinafine 2021-03 Yes 250mg 1 tablet. Univers HCL 250 mg 2-15 ity of tablet 00:00: [address] terbinafine 2021-03 Yes 250mg 1 tablet. Univers HCL 250 mg 2-15 ity of tablet 00:00: [address] carBAMazepi 2021-03 Yes 400mg 2 tablets. Univers ne 200 mg 2-15 ity of tablet 00:00: [address] clopidogreL 2021-03 Yes 75mg 1 tablet. U nivers 75 mg 2-15 ity of tablet 00:00: [address] gabapentin 2021-03 Yes 600mg 2 Univer s 300 mg 2-15 capsules. ity of capsule 00:00: [address] terbinafine 2021-03 Yes 250mg 1 tablet. Univers HCL 250 mg 2-15 ity of tablet 00:00: [address] carBAMazepi 2021-03 Yes 400mg 2 tablets. Univers ne 200 mg 2-15 ity of tablet 00:00: [address] clopidogreL 2021-03 Yes 75mg 1 tablet. U nivers 75 mg 2-15 ity of tablet 00:00: [address] gabapentin 2021-03 Yes 600mg 2 Univer s 300 mg 2-15 capsules. ity of capsule 00:00: [address] terbinafine 2021-03 Yes 250mg 1 tablet. Univers HCL 250 mg 2-15 ity of tablet 00:00: [address] carBAMazepi 2021-03 Yes 400mg 2 tablets. Univers ne 200 mg 2-15 ity of tablet 00:00: [address] clopidogreL 2021-03 Yes 75mg 1 tablet. U nivers 75 mg 2-15 ity of tablet 00:00: [address] gabapentin 2021-03 Yes 600mg 2 Univer s 300 mg 2-15 capsules. ity of capsule 00:00: [address] terbinafine 2021-03 Yes 250mg 1 tablet. Univers HCL 250 mg 2-15 ity of tablet 00:00: [address] carBAMazepi 2021-03 Yes 400mg 2 tablets. Univers ne 200 mg 2-15 ity of tablet 00:00: [address] clopidogreL 2021-03 Yes 75mg 1 tablet. U nivers 75 mg 2-15 ity of tablet 00:00: [address] gabapentin 2021-03 Yes 600mg 2 Univer s 300 mg 2-15 capsules. ity of capsule 00:00: [address] terbinafine 2021-03 Yes 250mg 1 tablet. Univers HCL 250 mg 2-15 ity of tablet 00:00: [address] carBAMazepi 2021-03 Yes 400mg 2 tablets. Univers ne 200 mg 2-15 ity of tablet 00:00: [address] clopidogreL 2021-03 Yes 75mg 1 tablet. U nivers 75 mg 2-15 ity of tablet 00:00: [address] gabapentin 2021-03 Yes 600mg 2 Univer s 300 mg 2-15 capsules. ity of capsule 00:00: [address] terbinafine 2021-03 Yes 250mg 1 tablet. Univers HCL 250 mg 2-15 ity of tablet 00:00: [address] carBAMazepi 2021-03 Yes 400mg 2 tablets. Univers ne 200 mg 2-15 ity of tablet 00:00: [address] clopidogreL 2021-03 Yes 75mg 1 tablet. U nivers 75 mg 2-15 ity of tablet 00:00: [address] gabapentin 2021-03 Yes 600mg 2 Univer s 300 mg 2-15 capsules. ity of capsule 00:00: [address] terbinafine 2021-03 Yes 250mg 1 tablet. Univers HCL 250 mg 2-15 ity of tablet 00:00: [address] carBAMazepi 2021-03 Yes 400mg 2 tablets. Univers ne 200 mg 2-15 ity of tablet 00:00: [address] clopidogreL 2021-03 Yes 75mg 1 tablet. U nivers 75 mg 2-15 ity of tablet 00:00: [address] gabapentin 2021-03 Yes 600mg 2 Univer s 300 mg 2-15 capsules. ity of capsule 00:00: [address] terbinafine 2021-03 Yes 250mg 1 tablet. Univers HCL 250 mg 2-15 ity of tablet 00:00: [address] carBAMazepi 2021-03 Yes 400mg 2 tablets. Univers ne 200 mg 2-15 ity of tablet 00:00: [address] clopidogreL 2021-03 Yes 75mg 1 tablet. [facility] n[facility] 75 mg 2-15 ity of tablet 00:00: [address] gabapentin 2021-03 Yes 600mg 2 [facility] 300 mg 2-15 capsules. ity of capsule 00:00: [address] terbinafine 2021-03 Yes 250mg 1 tablet. [facility] 250 mg 2-15 ity of tablet 00:00: [address] carBAMazepi 2021-03 Yes 400mg 2 tablets. [facility] 200 mg 2-15 ity of tablet 00:00: [address] clopidogreL 2021-03 Yes 75mg 1 tablet. [facility] nivers 75 mg 2-15 ity of tablet 00:00: [address] gabapentin 2021-03 Yes 600mg 2 [facility] 300 mg 2-15 capsules. ity of capsule 00:00: [address] terbinafine 2021-03 Yes 250mg 1 tablet. [facility] H[facility] 250 mg 2-15 ity of tablet 00:00: [address] carBAMazepi 2021-03 Yes 400mg 2 tablets. [facility] 200 mg 2-15 ity of tablet 00:00: [address] clopidogreL 2021-03 Yes 75mg 1 tablet. [facility] nivers 75 mg 2-15 ity of tablet 00:00: [address] gabapentin 2021-03 Yes 600mg 2 [facility] 300 mg 2-15 capsules. ity of capsule 00:00: [address] terbinafine 2021-03 Yes 250mg 1 tablet. [facility] H[facility] 250 mg 2-15 ity of tablet 00:00: [address] carBAMazepi 2021-03 Yes 400mg 2 tablets. [facility] 200 mg 2-15 ity of tablet 00:00: [address] clopidogreL 2021-03 Yes 75mg 1 tablet. [facility] n[facility] 75 mg 2-15 ity of tablet 00:00: [address] carBAMazepi 2021-03 Yes 400mg 2 tablets. [facility] 200 mg 2-15 ity of tablet 00:00: [address] clopidogreL 2021-03 Yes 75mg 1 tablet. [facility] nivers 75 mg 2-15 ity of tablet 00:00: [address] gabapentin 2021-03 Yes 600mg 2 [facility] 300 mg 2-15 capsules. ity of capsule 00:00: [address] terbinafine 2021-03 Yes 250mg 1 tablet. [facility] 250 mg 2-15 ity of tablet 00:00: [address] carBAMazepi 2021-03 Yes 400mg 2 tablets. [facility] 200 mg 2-15 ity of tablet 00:00: [address] clopidogreL 2021-03 Yes 75mg 1 tablet. [facility] nivers 75 mg 2-15 ity of tablet 00:00: [address] gabapentin 2021-03 Yes 600mg 2 [facility] 300 mg 2-15 capsules. ity of capsule 00:00: [address] gabapentin 2021-03 Yes 600mg 2 [facility] 300 mg 2-15 capsules. ity of capsule 00:00: [facility] terbinafine 2021-03 Yes 250mg 1 tablet. [facility] H[facility] 250 mg 2-15 ity of tablet 00:00: [facility] carBAMazepi 2021-03 Yes 400mg 2 tablets. [facility] 200 mg 2-15 ity of tablet 00:00: [address] clopidogreL 2021-03 Yes 75mg 1 tablet. [facility] nivers 75 mg 2-15 ity of tablet 00:00: [address] gabapentin 2021-03 Yes 600mg 2 [facility] 300 mg 2-15 capsules. ity of capsule 00:00: [address] terbinafine 2021-03 Yes 250mg 1 tablet. [facility] H[facility] 250 mg 2-15 ity of tablet 00:00: [address] terbinafine 2021-03 Yes 250mg 1 tablet. [facility] H[facility] 250 mg 2-15 ity of tablet 00:00: [address] carBAMazepi 2021-03 Yes 400mg 2 tablets. [facility] 200 mg 2-15 ity of tablet 00:00: [address] clopidogreL 2021-03 Yes 75mg 1 tablet. [facility] nivers 75 mg 2-15 ity of tablet 00:00: [address] gabapentin 2021-03 Yes 600mg 2 [facility] 300 mg 2-15 capsules. ity of capsule 00:00: [address] terbinafine 2021-03 Yes 250mg 1 tablet. [facility] H[facility] 250 mg 2-15 ity of tablet 00:00: [address] carBAMazepi 2021-03 Yes 400mg 2 tablets. [facility] 200 mg 2-15 ity of tablet 00:00: [address] clopidogreL 2021-03 Yes 75mg 1 tablet. [facility] nivers 75 mg 2-15 ity of tablet 00:00: [address] gabapentin 2021-03 Yes 600mg 2 [facility] 300 mg 2-15 capsules. ity of capsule 00:00: [address] terbinafine 2021-03 Yes 250mg 1 tablet. [facility] H[facility] 250 mg 2-15 ity of tablet 00:00: [address] carBAMazepi 2021-03 Yes 400mg 2 tablets. [facility] 200 mg 2-15 ity of tablet 00:00: [address] clopidogreL 2021-03 Yes 75mg 1 tablet. [facility] nivers 75 mg 2-15 ity of tablet 00:00: [address] gabapentin 2021-03 Yes 600mg 2 [facility] 300 mg 2-15 capsules. ity of capsule 00:00: [address] terbinafine 2021-03 Yes 250mg 1 tablet. [facility] H[facility] 250 mg 2-15 ity of tablet 00:00: [address] carBAMazepi 2021-03 Yes 400mg 2 tablets. [facility] 200 mg 2-15 ity of tablet 00:00: [address] clopidogreL 2021-03 Yes 75mg 1 tablet. [facility] nivers 75 mg 2-15 ity of tablet 00:00: [address] gabapentin 2021-03 Yes 600mg 2 [facility] 300 mg 2-15 capsules. ity of capsule 00:00: [address] terbinafine 2021-03 Yes 250mg 1 tablet. [facility] H[facility] 250 mg 2-15 ity of tablet 00:00: [address] carBAMazepi 2021-03 Yes 400mg 2 tablets. [facility] 200 mg 2-15 ity of tablet 00:00: [address] clopidogreL 2021-03 Yes 75mg 1 tablet. [facility] nivers 75 mg 2-15 ity of tablet 00:00: [address] gabapentin 2021-03 Yes 600mg 2 [facility] 300 mg 2-15 capsules. ity of capsule 00:00: [address] terbinafine 2021-03 Yes 250mg 1 tablet. [facility] H[facility] 250 mg 2-15 ity of tablet 00:00: [address] carBAMazepi 2021-03 Yes 400mg 2 tablets. [facility] 200 mg 2-15 ity of tablet 00:00: [address] clopidogreL 2021-03 Yes 75mg 1 tablet. [facility] nivers 75 mg 2-15 ity of tablet 00:00: [address] gabapentin 2021-03 Yes 600mg 2 [facility] 300 mg 2-15 capsules. ity of capsule 00:00: [address] terbinafine 2021-03 Yes 250mg 1 tablet. [facility] H[facility] 250 mg 2-15 ity of tablet 00:00: [address] carBAMazepi 2021-03 Yes 400mg 2 tablets. [facility] 200 mg 2-15 ity of tablet 00:00: [address] clopidogreL 2021-03 Yes 75mg 1 tablet. [facility] nivers 75 mg 2-15 ity of tablet 00:00: [address] gabapentin 2021-03 Yes 600mg 2 [facility] 300 mg 2-15 capsules. ity of capsule 00:00: [address] terbinafine 2021-03 Yes 250mg 1 tablet. [facility] H[facility] 250 mg 2-15 ity of tablet 00:00: [address] carBAMazepi 2021-03 Yes 400mg 2 tablets. [facility] 200 mg 2-15 ity of tablet 00:00: [address] clopidogreL 2021-03 Yes 75mg 1 tablet. [facility] nivers 75 mg 2-15 ity of tablet 00:00: [address] gabapentin 2021-03 Yes 600mg 2 [facility] 300 mg 2-15 capsules. ity of capsule 00:00: [address] terbinafine 2021-03 Yes 250mg 1 tablet. [facility] HCL 250 mg 2-15 ity of tablet 00:00: [address] carBAMazepi 2021-03 Yes 400mg 2 tablets. [facility] 200 mg 2-15 ity of tablet 00:00: [address] carBAMazepi 2021-03 Yes 400mg 2 tablets. [facility] 200 mg 2-15 ity of tablet 00:00: [address] clopidogreL 2021-03 Yes 75mg 1 tablet. [facility] nivers 75 mg 2-15 ity of tablet 00:00: [address] clopidogreL 2021-03 Yes 75mg 1 tablet. [facility] nivers 75 mg 2-15 ity of tablet 00:00: [address] gabapentin 2021- Yes 600mg 2 [facility] 300 mg 2-15 capsules. ity of capsule 00:00: [address] terbinafine 2021-03 Yes 250mg 1 tablet. [facility] H[facility] 250 mg 2-15 ity of tablet 00:00: [address] carBAMazepi 2021-03 Yes 400mg 2 tablets. [facility] 200 mg 2-15 ity of tablet 00:00: [address] clopidogreL 2021-03 Yes 75mg 1 tablet. [facility] nivers 75 mg 2-15 ity of tablet 00:00: [address] gabapentin 2021- Yes 600mg 2 [facility] 300 mg 2-15 capsules. ity of capsule 00:00: [address] gabapentin 2021-03 Yes 600mg 2 [facility] 300 mg 2-15 capsules. ity of capsule 00:00: [address] terbinafine 2021-03 Yes 250mg 1 tablet. [facility] H[facility] 250 mg 2-15 ity of tablet 00:00: [address] carBAMazepi 2021-03 Yes 400mg 2 tablets. [facility] 200 mg 2-15 ity of tablet 00:00: [address] clopidogreL 2021-03 Yes 75mg 1 tablet. [facility] nivers 75 mg 2-15 ity of tablet 00:00: [address] gabapentin 2021-03 Yes 600mg 2 [facility] 300 mg 2-15 capsules. ity of capsule 00:00: [address] terbinafine 2021-03 Yes 250mg 1 tablet. [facility] H[facility] 250 mg 2-15 ity of tablet 00:00: [address] carBAMazepi 2021-03 Yes 400mg 2 tablets. [facility] 200 mg 2-15 ity of tablet 00:00: [address] clopidogreL 2021-03 Yes 75mg 1 tablet. [facility] nivers 75 mg 2-15 ity of tablet 00:00: [address] gabapentin 2021-03 Yes 600mg 2 [facility] 300 mg 2-15 capsules. ity of capsule 00:00: [address] terbinafine 2021-03 Yes 250mg 1 tablet. [facility] H[facility] 250 mg 2-15 ity of tablet 00:00: [address] terbinafine 2021-03 Yes 250mg 1 tablet. [facility] H[facility] 250 mg 2-15 ity of tablet 00:00: [address] carBAMazepi 2021-03 Yes 400mg 2 tablets. [facility] ne 200 mg 2-15 ity of tablet 00:00: [address] clopidogreL 2021-03 Yes 75mg 1 tablet. [facility] nivers 75 mg 2-15 ity of tablet 00:00: [address] gabapentin 2021-03 Yes 600mg 2 [facility] 300 mg 2-15 capsules. ity of capsule 00:00: [address] terbinafine 2021-03 Yes 250mg 1 tablet. [facility] H[facility] 250 mg 2-15 ity of tablet 00:00: [address] carBAMazepi 2021-03 Yes 400mg 2 tablets. [facility] 200 mg 2-15 ity of tablet 00:00: [address] clopidogreL 2021-03 Yes 75mg 1 tablet. [facility] nivers 75 mg 2-15 ity of tablet 00:00: [address] gabapentin 2021-03 Yes 600mg 2 [facility] 300 mg 2-15 capsules. ity of capsule 00:00: [address] terbinafine 2021-03 Yes 250mg 1 tablet. [facility] H[facility] 250 mg 2-15 ity of tablet 00:00: [address] carBAMazepi 2021-03 Yes 400mg 2 tablets. [facility] ne 200 mg 2-15 ity of tablet 00:00: [address] clopidogreL 2021-03 Yes 75mg 1 tablet. [facility] nivers 75 mg 2-15 ity of tablet 00:00: [address] gabapentin 2021-03 Yes 600mg 2 [facility] 300 mg 2-15 capsules. ity of capsule 00:00: [address] terbinafine 2021-03 Yes 250mg 1 tablet. [facility] H[facility] 250 mg 2-15 ity of tablet 00:00: [address] carBAMazepi 2021-03 Yes 400mg 2 tablets. [facility] ne 200 mg 2-15 ity of tablet 00:00: [address] clopidogreL 2021-03 Yes 75mg 1 tablet. [facility] nivers 75 mg 2-15 ity of tablet 00:00: [address] gabapentin 2021-03 Yes 600mg 2 [facility] 300 mg 2-15 capsules. ity of capsule 00:00: [address] terbinafine 2021-03 Yes 250mg 1 tablet. [facility] H[facility] 250 mg 2-15 ity of tablet 00:00: [address] carBAMazepi 2021-03 Yes 400mg 2 tablets. [facility] ne 200 mg 2-15 ity of tablet 00:00: [address] clopidogreL 2021-03 Yes 75mg 1 tablet. [facility] nivers 75 mg 2-15 ity of tablet 00:00: [address] gabapentin 2021-03 Yes 600mg 2 [facility] 300 mg 2-15 capsules. ity of capsule 00:00: [address] terbinafine 2021-03 Yes 250mg 1 tablet. [facility] H[facility] 250 mg 2-15 ity of tablet 00:00: [address] carBAMazepi 2021-03 Yes 400mg 2 tablets. [facility] ne 200 mg 2-15 ity of tablet 00:00: [address] clopidogreL 2021-03 Yes 75mg 1 tablet. U nivers 75 mg 2-15 ity of tablet 00:00: [address] gabapentin 2021-03 Yes 600mg 2 [facility] 300 mg 2-15 capsules. ity of capsule 00:00: [address] terbinafine 2021-03 Yes 250mg 1 tablet. [facility] H[facility] 250 mg 2-15 ity of tablet 00:00: [address] carBAMazepi 2021-03 Yes 400mg 2 tablets. [facility] ne 200 mg 2-15 ity of tablet 00:00: [address] clopidogreL 2021-03 Yes 75mg 1 tablet. U nivers 75 mg 2-15 ity of tablet 00:00: [address] gabapentin 2021-03 Yes 600mg 2 [facility] 300 mg 2-15 capsules. ity of capsule 00:00: [address] terbinafine 2021-03 Yes 250mg 1 tablet. [facility] H[facility] 250 mg 2-15 ity of tablet 00:00: [address] carBAMazepi 2021-03 Yes 400mg 2 tablets. [facility] ne 200 mg 2-15 ity of tablet 00:00: [address] carBAMazepi 2021-03 Yes 400mg 2 tablets. [facility] 200 mg 2-15 ity of tablet 00:00: [address] clopidogreL 2021-03 Yes 75mg 1 tablet. U nivers 75 mg 2-15 ity of tablet 00:00: [address] gabapentin 2021-03 Yes 600mg 2 [facility] 300 mg 2-15 capsules. ity of capsule 00:00: [address] terbinafine 2021-03 Yes 250mg 1 tablet. [facility] H[facility] 250 mg 2-15 ity of tablet 00:00: [address] clopidogreL 2021-03 Yes 75mg 1 tablet. U nivers 75 mg 2-15 ity of tablet 00:00: [address] carBAMazepi 2021-03 Yes 400mg 2 tablets. [facility] ne 200 mg 2-15 ity of tablet 00:00: [address] clopidogreL 2021-03 Yes 75mg 1 tablet. U nivers 75 mg 2-15 ity of tablet 00:00: [address] gabapentin 2021-03 Yes 600mg 2 [facility] 300 mg 2-15 capsules. ity of capsule 00:00: [address] terbinafine 2021-03 Yes 250mg 1 tablet. [facility] H[facility] 250 mg 2-15 ity of tablet 00:00: [address] gabapentin 2021-03 Yes 600mg 2 [facility] 300 mg 2-15 capsules. ity of capsule 00:00: [address] carBAMazepi 2021-03 Yes 400mg 2 tablets. [facility] 200 mg 2-15 ity of tablet 00:00: [address] clopidogreL 2021-03 Yes 75mg 1 tablet. U nivers 75 mg 2-15 ity of tablet 00:00: [address] gabapentin 2021-03 Yes 600mg 2 [facility] 300 mg 2-15 capsules. ity of capsule 00:00: [address] terbinafine 2021-03 Yes 250mg 1 tablet. [facility] H[facility] 250 mg 2-15 ity of tablet 00:00: [address] carBAMazepi 2021-03 Yes 400mg 2 tablets. [facility] ne 200 mg 2-15 ity of tablet 00:00: [address] clopidogreL 2021-03 Yes 75mg 1 tablet. U nivers 75 mg 2-15 ity of tablet 00:00: [address] gabapentin 2021-03 Yes 600mg 2 [facility] 300 mg 2-15 capsules. ity of capsule 00:00: [address] terbinafine 2021-03 Yes 250mg 1 tablet. [facility] H[facility] 250 mg 2-15 ity of tablet 00:00: [address] terbinafine 2021-03 Yes 250mg 1 tablet. [facility] H[facility] 250 mg 2-15 ity of tablet 00:00: [address] carBAMazepi 2021-03 Yes 400mg 2 tablets. [facility] ne 200 mg 2-15 ity of tablet 00:00: [address] clopidogreL 2021-03 Yes 75mg 1 tablet. [facility] nivers 75 mg 2-15 ity of tablet 00:00: [address] gabapentin 2021-03 Yes 600mg 2 [facility] 300 mg 2-15 capsules. ity of capsule 00:00: [address] terbinafine 2021-03 Yes 250mg 1 tablet. [facility] H[facility] 250 mg 2-15 ity of tablet 00:00: [address] carBAMazepi 2021-03 Yes 400mg 2 tablets. [facility] ne 200 mg 2-15 ity of tablet 00:00: [address] clopidogreL 2021-03 Yes 75mg 1 tablet. U nivers 75 mg 2-15 ity of tablet 00:00: [address] gabapentin 2021-03 Yes 600mg 2 [facility] 300 mg 2-15 capsules. ity of capsule 00:00: [address] terbinafine 2021-03 Yes 250mg 1 tablet. [facility] H[facility] 250 mg 2-15 ity of tablet 00:00: [address] carBAMazepi 2021-03 Yes 400mg 2 tablets. [facility] ne 200 mg 2-15 ity of tablet 00:00: [address] clopidogreL 2021-03 Yes 75mg 1 tablet. U nivers 75 mg 2-15 ity of tablet 00:00: [address] gabapentin 2021-03 Yes 600mg 2 [facility] 300 mg 2-15 capsules. ity of capsule 00:00: [address] terbinafine 2021-03 Yes 250mg 1 tablet. [facility] H[facility] 250 mg 2-15 ity of tablet 00:00: [address] carBAMazepi 2021-03 Yes 400mg 2 tablets. [facility] ne 200 mg 2-15 ity of tablet 00:00: [address] clopidogreL 2021-03 Yes 75mg 1 tablet. [facility] nivers 75 mg 2-15 ity of tablet 00:00: [address] gabapentin 2021-03 Yes 600mg 2 [facility] 300 mg 2-15 capsules. ity of capsule 00:00: [address] terbinafine 2021-03 Yes 250mg 1 tablet. [facility] HCL 250 mg 2-15 ity of tablet 00:00: [address] carBAMazepi 2021-03 Yes 400mg 2 tablets. [facility] ne 200 mg 2-15 ity of tablet 00:00: [address] clopidogreL 2021-03 Yes 75mg 1 tablet. U nivers 75 mg 2-15 ity of tablet 00:00: [address] gabapentin 2021-03 Yes 600mg 2 [facility] 300 mg 2-15 capsules. ity of capsule 00:00: [address] terbinafine 2021-03 Yes 250mg 1 tablet. [facility] HCL 250 mg 2-15 ity of tablet 00:00: [address] carBAMazepi 2021-03 Yes 400mg 2 tablets. [facility] ne 200 mg 2-15 ity of tablet 00:00: [address] clopidogreL 2021-03 Yes 75mg 1 tablet. U nivers 75 mg 2-15 ity of tablet 00:00: [address] gabapentin 2021-03 Yes 600mg 2 [facility] 300 mg 2-15 capsules. ity of capsule 00:00: [address] terbinafine 2021-03 Yes 250mg 1 tablet. [facility] HCL 250 mg 2-15 ity of tablet 00:00: [address] carBAMazepi 2021-03 Yes 400mg 2 tablets. [facility] ne 200 mg 2-15 ity of tablet 00:00: [address] clopidogreL 2021-03 Yes 75mg 1 tablet. U nivers 75 mg 2-15 ity of tablet 00:00: [address] gabapentin 2021-03 Yes 600mg 2 [facility] 300 mg 2-15 capsules. ity of capsule 00:00: [address] terbinafine 2021-03 Yes 250mg 1 tablet. [facility] HCL 250 mg 2-15 ity of tablet 00:00: [address] carBAMazepi 2021-03 Yes 400mg 2 tablets. [facility] ne 200 mg 2-15 ity of tablet 00:00: [address] clopidogreL 2021-03 Yes 75mg 1 tablet. U nivers 75 mg 2-15 ity of tablet 00:00: [address] gabapentin 2021-03 Yes 600mg 2 [facility] 300 mg 2-15 capsules. ity of capsule 00:00: [address] terbinafine 2021-03 Yes 250mg 1 tablet. [facility] HCL 250 mg 2-15 ity of tablet 00:00: [address] carBAMazepi 2021-03 Yes 400mg 2 tablets. [facility] ne 200 mg 2-15 ity of tablet 00:00: [address] clopidogreL 2021-03 Yes 75mg 1 tablet. U nivers 75 mg 2-15 ity of tablet 00:00: [address] gabapentin 2021-03 Yes 600mg 2 [facility] 300 mg 2-15 capsules. ity of capsule 00:00: [address] terbinafine 2021-03 Yes 250mg 1 tablet. [facility] H[facility] 250 mg 2-15 ity of tablet 00:00: [address] carBAMazepi 2021-03 Yes 400mg 2 tablets. [facility] ne 200 mg 2-15 ity of tablet 00:00: [address] clopidogreL 2021-03 Yes 75mg 1 tablet. [facility] nivers 75 mg 2-15 ity of tablet 00:00: [address] gabapentin 2021-03 Yes 600mg 2 [facility] 300 mg 2-15 capsules. ity of capsule 00:00: [address] terbinafine 2021-03 Yes 250mg 1 tablet. [facility] HCL 250 mg 2-15 ity of tablet 00:00: [address] carBAMazepi 2021-03 Yes 400mg 2 tablets. [facility] ne 200 mg 2-15 ity of tablet 00:00: [address] clopidogreL 2021-03 Yes 75mg 1 tablet. [facility] nivers 75 mg 2-15 ity of tablet 00:00: [address] gabapentin 2021-03 Yes 600mg 2 [facility] 300 mg 2-15 capsules. ity of capsule 00:00: [address] terbinafine 2021-03 Yes 250mg 1 tablet. [facility] H[facility] 250 mg 2-15 ity of tablet 00:00: [address] carBAMazepi 2021-03 Yes 400mg 2 tablets. [facility] ne 200 mg 2-15 ity of tablet 00:00: [address] clopidogreL 2021-03 Yes 75mg 1 tablet. [facility] nivers 75 mg 2-15 ity of tablet 00:00: [address] gabapentin 2021-03 Yes 600mg 2 [facility] 300 mg 2-15 capsules. ity of capsule 00:00: [address] terbinafine 2021-03 Yes 250mg 1 tablet. [facility] H[facility] 250 mg 2-15 ity of tablet 00:00: [address] carBAMazepi 2021-03 Yes 400mg 2 tablets. [facility] ne 200 mg 2-15 ity of tablet 00:00: [address] clopidogreL 2021-03 Yes 75mg 1 tablet. [facility] nivers 75 mg 2-15 ity of tablet 00:00: [address] gabapentin 2021-03 Yes 600mg 2 [facility] 300 mg 2-15 capsules. ity of capsule 00:00: [address] terbinafine 2021-03 Yes 250mg 1 tablet. [facility] H[facility] 250 mg 2-15 ity of tablet 00:00: [address] carBAMazepi 2021-03 Yes 400mg 2 tablets. [facility] ne 200 mg 2-15 ity of tablet 00:00: [address] clopidogreL 2021-03 Yes 75mg 1 tablet. [facility] nivers 75 mg 2-15 ity of tablet 00:00: [address] gabapentin 2021-03 Yes 600mg 2 [facility] 300 mg 2-15 capsules. ity of capsule 00:00: [address] terbinafine 2021-03 Yes 250mg 1 tablet. [facility] H[facility] 250 mg 2-15 ity of tablet 00:00: [address] carBAMazepi 2021-03 Yes 400mg 2 tablets. [facility] ne 200 mg 2-15 ity of tablet 00:00: [address] clopidogreL 2021-03 Yes 75mg 1 tablet. [facility] nivers 75 mg 2-15 ity of tablet 00:00: [address] gabapentin 2021-03 Yes 600mg 2 [facility] 300 mg 2-15 capsules. ity of capsule 00:00: [address] terbinafine 2021-03 Yes 250mg 1 tablet. [facility] HCL 250 mg 2-15 ity of tablet 00:00: [address] carBAMazepi 2021-03 Yes 400mg 2 tablets. [facility] ne 200 mg 2-15 ity of tablet 00:00: [address] clopidogreL 2021-03 Yes 75mg 1 tablet. [facility] nivers 75 mg 2-15 ity of tablet 00:00: [address] gabapentin 2021-03 Yes 600mg 2 [facility] 300 mg 2-15 capsules. ity of capsule 00:00: [address] terbinafine 2021-03 Yes 250mg 1 tablet. [facility] HCL 250 mg 2-15 ity of tablet 00:00: [address] carBAMazepi 2021-03 Yes 400mg 2 tablets. [facility] ne 200 mg 2-15 ity of tablet 00:00: [address] clopidogreL 2021-03 Yes 75mg 1 tablet. [facility] nivers 75 mg 2-15 ity of tablet 00:00: [address] gabapentin 2021-03 Yes 600mg 2 [facility] 300 mg 2-15 capsules. ity of capsule 00:00: [address] terbinafine 2021-03 Yes 250mg 1 tablet. [facility] HCL 250 mg 2-15 ity of tablet 00:00: [address] carBAMazepi 2021-03 Yes 400mg 2 tablets. [facility] ne 200 mg 2-15 ity of tablet 00:00: [address] clopidogreL 2021-03 Yes 75mg 1 tablet. [facility] nivers 75 mg 2-15 ity of tablet 00:00: [address] gabapentin 2021-03 Yes 600mg 2 [facility] 300 mg 2-15 capsules. ity of capsule 00:00: [address] terbinafine 2021-03 Yes 250mg 1 tablet. [facility] HCL 250 mg 2-15 ity of tablet 00:00: [address] carBAMazepi 2021-03 Yes 400mg 2 tablets. [facility] ne 200 mg 2-15 ity of tablet 00:00: [address] clopidogreL 2021-03 Yes 75mg 1 tablet. [facility] nivers 75 mg 2-15 ity of tablet 00:00: [address] gabapentin 2021-03 Yes 600mg 2 [facility] 300 mg 2-15 capsules. ity of capsule 00:00: [address] terbinafine 2021-03 Yes 250mg 1 tablet. [facility] H[facility] 250 mg 2-15 ity of tablet 00:00: [address] carBAMazepi 2021-03 Yes 400mg 2 tablets. [facility] 200 mg 2-15 ity of tablet 00:00: [address] clopidogreL 2021-03 Yes 75mg 1 tablet. [facility] nivers 75 mg 2-15 ity of tablet 00:00: [address] gabapentin 2021-03 Yes 600mg 2 [facility] 300 mg 2-15 capsules. ity of capsule 00:00: [address] terbinafine 2021-03 Yes 250mg 1 tablet. [facility] H[facility] 250 mg 2-15 ity of tablet 00:00: [address] carBAMazepi 2021-03 Yes 400mg 2 tablets. [facility] 200 mg 2-15 ity of tablet 00:00: [address] clopidogreL 2021-03 Yes 75mg 1 tablet. [facility] nivers 75 mg 2-15 ity of tablet 00:00: [address] gabapentin 2021-03 Yes 600mg 2 [facility] 300 mg 2-15 capsules. ity of capsule 00:00: [address] terbinafine 2021-03 Yes 250mg 1 tablet. [facility] H[facility] 250 mg 2-15 ity of tablet 00:00: [address] carBAMazepi 2021-03 Yes 400mg 2 tablets. [facility] 200 mg 2-15 ity of tablet 00:00: [address] clopidogreL 2021-03 Yes 75mg 1 tablet. [facility] nivers 75 mg 2-15 ity of tablet 00:00: [address] gabapentin 2021-03 Yes 600mg 2 [facility] 300 mg 2-15 capsules. ity of capsule 00:00: [address] terbinafine 2021-03 Yes 250mg 1 tablet. [facility] H[facility] 250 mg 2-15 ity of tablet 00:00: [address] carBAMazepi 2021-03 Yes 400mg 2 tablets. [facility] 200 mg 2-15 ity of tablet 00:00: [address] clopidogreL 2021-03 Yes 75mg 1 tablet. [facility] nivers 75 mg 2-15 ity of tablet 00:00: [address] gabapentin 2021-03 Yes 600mg 2 [facility] 300 mg 2-15 capsules. ity of capsule 00:00: [address] terbinafine 2021-03 Yes 250mg 1 tablet. [facility] H[facility] 250 mg 2-15 ity of tablet 00:00: [address] carBAMazepi 2021-03 Yes 400mg 2 tablets. [facility] 200 mg 2-15 ity of tablet 00:00: [address] clopidogreL 2021-03 Yes 75mg 1 tablet. [facility] nivers 75 mg 2-15 ity of tablet 00:00: [address] gabapentin 2021-03 Yes 600mg 2 [facility] 300 mg 2-15 capsules. ity of capsule 00:00: [address] terbinafine 2021-03 Yes 250mg 1 tablet. [facility] H[facility] 250 mg 2-15 ity of tablet 00:00: [address] carBAMazepi 2021-03 Yes 400mg 2 tablets. [facility] 200 mg 2-15 ity of tablet 00:00: [address] clopidogreL 2021-03 Yes 75mg 1 tablet. [facility] nivers 75 mg 2-15 ity of tablet 00:00: [address] gabapentin 2021-03 Yes 600mg 2 [facility] 300 mg 2-15 capsules. ity of capsule 00:00: [address] terbinafine 2021-03 Yes 250mg 1 tablet. [facility] H[facility] 250 mg 2-15 ity of tablet 00:00: [address] carBAMazepi 2021-03 Yes 400mg 2 tablets. [facility] 200 mg 2-15 ity of tablet 00:00: [address] clopidogreL 2021-03 Yes 75mg 1 tablet. [facility] nivers 75 mg 2-15 ity of tablet 00:00: [address] gabapentin 2021-03 Yes 600mg 2 [facility] 300 mg 2-15 capsules. ity of capsule 00:00: [address] terbinafine 2021-03 Yes 250mg 1 tablet. [facility] H[facility] 250 mg 2-15 ity of tablet 00:00: [address] carBAMazepi 2021-03 Yes 400mg 2 tablets. [facility] 200 mg 2-15 ity of tablet 00:00: [address] clopidogreL 2021-03 Yes 75mg 1 tablet. [facility] nivers 75 mg 2-15 ity of tablet 00:00: [address] gabapentin 2021-03 Yes 600mg 2 [facility] 300 mg 2-15 capsules. ity of capsule 00:00: [address] terbinafine 2021-03 Yes 250mg 1 tablet. [facility] H[facility] 250 mg 2-15 ity of tablet 00:00: [address] carBAMazepi 2021-03 Yes 400mg 2 tablets. [facility] ne 200 mg 2-15 ity of tablet 00:00: [address] clopidogreL 2021-03 Yes 75mg 1 tablet. U nivers 75 mg 2-15 ity of tablet 00:00: [address] gabapentin 2021-03 Yes 600mg 2 Univer s 300 mg 2-15 capsules. ity of capsule 00:00: [address] terbinafine 2021-03 Yes 250mg 1 tablet. [facility] HCL 250 mg 2-15 ity of tablet 00:00: [address] carBAMazepi 2021-03 Yes 400mg 2 tablets. [facility] ne 200 mg 2-15 ity of tablet 00:00: [address] clopidogreL 2021-03 Yes 75mg 1 tablet. U nivers 75 mg 2-15 ity of tablet 00:00: [address] gabapentin 2021-03 Yes 600mg 2 Un[facility] 300 mg 2-15 capsules. ity of capsule 00:00: [address] terbinafine 2021-03 Yes 250mg 1 tablet. [facility] HCL 250 mg 2-15 ity of tablet 00:00: [address] carBAMazepi 2021-03 Yes 400mg 2 tablets. [facility] ne 200 mg 2-15 ity of tablet 00:00: [address] clopidogreL 2021-03 Yes 75mg 1 tablet. U nivers 75 mg 2-15 ity of tablet 00:00: [address] gabapentin 2021-03 Yes 600mg 2 Un[facility] 300 mg 2-15 capsules. ity of capsule 00:00: [address] terbinafine 2021-03 Yes 250mg 1 tablet. [facility] HCL 250 mg 2-15 ity of tablet 00:00: [address] carBAMazepi 2021-03 Yes 400mg 2 tablets. [facility] ne 200 mg 2-15 ity of tablet 00:00: [address] clopidogreL 2021-03 Yes 75mg 1 tablet. U nivers 75 mg 2-15 ity of tablet 00:00: [address] gabapentin 2021-03 Yes 600mg 2 [facility] 300 mg 2-15 capsules. ity of capsule 00:00: [address] terbinafine 2021-03 Yes 250mg 1 tablet. [facility] HCL 250 mg 2-15 ity of tablet 00:00: [address] carBAMazepi 2021-03 Yes 400mg 2 tablets. [facility] ne 200 mg 2-15 ity of tablet 00:00: [address] clopidogreL 2021-03 Yes 75mg 1 tablet. U nivers 75 mg 2-15 ity of tablet 00:00: [address] gabapentin 2021-03 Yes 600mg 2 Un[facility] 300 mg 2-15 capsules. ity of capsule 00:00: [address] terbinafine 2021-03 Yes 250mg 1 tablet. [facility] HCL 250 mg 2-15 ity of tablet 00:00: [address] carBAMazepi 2021-03 Yes 400mg 2 tablets. [facility] ne 200 mg 2-15 ity of tablet 00:00: [address] clopidogreL 2021-03 Yes 75mg 1 tablet. U nivers 75 mg 2-15 ity of tablet 00:00: [address] gabapentin 2021-03 Yes 600mg 2 [facility] 300 mg 2-15 capsules. ity of capsule 00:00: [address] terbinafine 2021-03 Yes 250mg 1 tablet. [facility] HCL 250 mg 2-15 ity of tablet 00:00: [address] carBAMazepi 2021-03 Yes 400mg 2 tablets. [facility] ne 200 mg 2-15 ity of tablet 00:00: [address] clopidogreL 2021-03 Yes 75mg 1 tablet. U nivers 75 mg 2-15 ity of tablet 00:00: [address] gabapentin 2021-03 Yes 600mg 2 [facility] 300 mg 2-15 capsules. ity of capsule 00:00: [address] terbinafine 2021-03 Yes 250mg 1 tablet. [facility] HCL 250 mg 2-15 ity of tablet 00:00: [address] carBAMazepi 2021-03 Yes 400mg 2 tablets. [facility] ne 200 mg 2-15 ity of tablet 00:00: [address] clopidogreL 2021-03 Yes 75mg 1 tablet. U nivers 75 mg 2-15 ity of tablet 00:00: [address] gabapentin 2021-03 Yes 600mg 2 [facility] s 300 mg 2-15 capsules. ity of capsule 00:00: [address] terbinafine 2021-03 Yes 250mg 1 tablet. [facility] HCL 250 mg 2-15 ity of tablet 00:00: [address] carBAMazepi 2021-03 Yes 400mg 2 tablets. [facility] ne 200 mg 2-15 ity of tablet 00:00: [address] clopidogreL 2021-03 Yes 75mg 1 tablet. U nivers 75 mg 2-15 ity of tablet 00:00: [address] gabapentin 2021-03 Yes 600mg 2 [facility] 300 mg 2-15 capsules. ity of capsule 00:00: [address] terbinafine 2021-03 Yes 250mg 1 tablet. [facility] HCL 250 mg 2-15 ity of tablet 00:00: [address] carBAMazepi 2021-03 Yes 400mg 2 tablets. [facility] ne 200 mg 2-15 ity of tablet 00:00: [address] clopidogreL 2021-03 Yes 75mg 1 tablet. U nivers 75 mg 2-15 ity of tablet 00:00: [address] gabapentin 2021-03 Yes 600mg 2 [facility] s 300 mg 2-15 capsules. ity of capsule 00:00: [address] terbinafine 2021-03 Yes 250mg 1 tablet. [facility] HCL 250 mg 2-15 ity of tablet 00:00: [address] carBAMazepi 2021-03 Yes 400mg 2 tablets. [facility] ne 200 mg 2-15 ity of tablet 00:00: [address] clopidogreL 2021-03 Yes 75mg 1 tablet. U nivers 75 mg 2-15 ity of tablet 00:00: [address] gabapentin 2021-03 Yes 600mg 2 Un[facility] s 300 mg 2-15 capsules. ity of capsule 00:00: [address] terbinafine 2021-03 Yes 250mg 1 tablet. [facility] HCL 250 mg 2-15 ity of tablet 00:00: [address] carBAMazepi 2021-03 Yes 400mg 2 tablets. [facility] ne 200 mg 2-15 ity of tablet 00:00: [address] clopidogreL 2021-03 Yes 75mg 1 tablet. U nivers 75 mg 2-15 ity of tablet 00:00: [address] gabapentin 2021-03 Yes 600mg 2 Univer s 300 mg 2-15 capsules. ity of capsule 00:00: [address] terbinafine 2021-03 Yes 250mg 1 tablet. [facility] HCL 250 mg 2-15 ity of tablet 00:00: [address] carBAMazepi 2021-03 Yes 400mg 2 tablets. [facility] ne 200 mg 2-15 ity of tablet 00:00: [address] clopidogreL 2021-03 Yes 75mg 1 tablet. U nivers 75 mg 2-15 ity of tablet 00:00: [address] gabapentin 2021-03 Yes 600mg 2 Univer s 300 mg 2-15 capsules. ity of capsule 00:00: [address] terbinafine 2021-03 Yes 250mg 1 tablet. [facility] HCL 250 mg 2-15 ity of tablet 00:00: [address] carBAMazepi 2021-03 Yes 400mg 2 tablets. [facility] ne 200 mg 2-15 ity of tablet 00:00: [address] clopidogreL 2021-03 Yes 75mg 1 tablet. U nivers 75 mg 2-15 ity of tablet 00:00: [address] gabapentin 2021-03 Yes 600mg 2 Un[facility] s 300 mg 2-15 capsules. ity of capsule 00:00: [address] terbinafine 2021-03 Yes 250mg 1 tablet. [facility] HCL 250 mg 2-15 ity of tablet 00:00: [address] carBAMazepi 2021-03 Yes 400mg 2 tablets. [facility] ne 200 mg 2-15 ity of tablet 00:00: [address] clopidogreL 2021-03 Yes 75mg 1 tablet. U nivers 75 mg 2-15 ity of tablet 00:00: [address] gabapentin 2021-03 Yes 600mg 2 Univer s 300 mg 2-15 capsules. ity of capsule 00:00: [address] terbinafine 2021-03 Yes 250mg 1 tablet. [facility] HCL 250 mg 2-15 ity of tablet 00:00: [address] carBAMazepi 2021-03 Yes 400mg 2 tablets. [facility] ne 200 mg 2-15 ity of tablet 00:00: [address] clopidogreL 2021-03 Yes 75mg 1 tablet. U nivers 75 mg 2-15 ity of tablet 00:00: [address] gabapentin 2021-03 Yes 600mg 2 Univer s 300 mg 2-15 capsules. ity of capsule 00:00: [address] terbinafine 2021-03 Yes 250mg 1 tablet. [facility] HCL 250 mg 2-15 ity of tablet 00:00: [address] carBAMazepi 2021-03 Yes 400mg 2 tablets. [facility] ne 200 mg 2-15 ity of tablet 00:00: [address] clopidogreL 2021-03 Yes 75mg 1 tablet. U nivers 75 mg 2-15 ity of tablet 00:00: [address] gabapentin 2021-03 Yes 600mg 2 Univer s 300 mg 2-15 capsules. ity of capsule 00:00: [address] terbinafine 2021-03 Yes 250mg 1 tablet. [facility] HCL 250 mg 2-15 ity of tablet 00:00: [address] carBAMazepi 2021-03 Yes 400mg 2 tablets. [facility] ne 200 mg 2-15 ity of tablet 00:00: [address] clopidogreL 2021-03 Yes 75mg 1 tablet. U nivers 75 mg 2-15 ity of tablet 00:00: [facility] gabapentin 2021-03 Yes 600mg 2 Univer s 300 mg 2-15 capsules. ity of capsule 00:00: [place] [facility] terbinafine 2021-03 Yes 250mg 1 tablet. [facility] HCL 250 mg 2-15 ity of tablet 00:00: [address] carBAMazepi 2021-03 Yes 400mg 2 tablets. [facility] ne 200 mg 2-15 ity of tablet 00:00: [place] [facility] clopidogreL 2021-03 Yes 75mg 1 tablet. U nivers 75 mg 2-15 ity of tablet 00:00: [place] [facility] gabapentin 2021-03 Yes 600mg 2 Univer s 300 mg 2-15 capsules. ity of capsule 00:00: [address] Branch ciprofloxac 2021-032- No [id number] 500mg Take 1 [facility] in HCl 500 1-20 11-28 tablet by ity of mg tablet 00:00: 05:59 mouth [place] 00 :[address] [facility] ([facility]) [facility] hours for 7 days. ciprofloxac 2021-03- No [id number] 500mg Take 1 Univers in HCl 500 0-28 11-05 tablet by ity of mg tablet 00:00: 04:59 mouth [place] 00 :00 every 12 Medical ([facility]) Branch hours for 7 days. ciprofloxac 2021-03- No [id number] 500mg Take 1 [facility] in HCl 500 0-28 11-05 tablet by ity of mg tablet 00:00: 04:59 mouth [place] 00 :00 every 12 Medical ([facility]) Branch hours for 7 days. lisinopriL 2021-03 Yes 5mg 1 tablet. Un chen 5 mg tablet 0-26 ity of 00:00: [place] [facility] lisinopriL 2021-03 Yes 5mg 1 tablet. Un chen 5 mg tablet 0-26 ity of 00:00: [place] [facility] lisinopriL 2021-03 Yes 5mg 1 tablet. Un chen 5 mg tablet 0-26 ity of 00:00: [address] lisinopriL 2021-03 Yes 5mg 1 tablet. Un chen 5 mg tablet 0-26 ity of 00:00: [facility] lisinopriL 2022-1 Yes 5mg 1 tablet. Un chen 5 mg tablet 0-26 ity of 00:00: [facility] lisinopriL 2022-1 Yes 5mg 1 tablet. Un chen 5 mg tablet 0-26 ity of 00:00: [facility] lisinopriL 2022-1 Yes 5mg 1 tablet. Un chen 5 mg tablet 0-26 ity of 00:00: [facility] lisinopriL 2022-1 Yes 5mg 1 tablet. Un chen 5 mg tablet 0-26 ity of 00:00: [place] [facility] lisinopriL 2022-1 Yes 5mg 1 tablet. Un chen 5 mg tablet 0-26 ity of 00:00: [place] [facility] lisinopriL 2022-1 Yes 5mg 1 tablet. Un chen 5 mg tablet 0-26 ity of 00:00: [place] [facility] lisinopriL 2022-1 Yes 5mg 1 tablet. Un chen 5 mg tablet 0-26 ity of 00:00: [place] [facility] lisinopriL 2022-1 Yes 5mg 1 tablet. Un chen 5 mg tablet 0-26 ity of 00:00: [place] [facility] lisinopriL 2022-1 Yes 5mg 1 tablet. Un chen 5 mg tablet 0-26 ity of 00:00: [place] [facility] lisinopriL 2022-1 Yes 5mg 1 tablet. Un chen 5 mg tablet 0-26 ity of 00:00: [place] [facility] lisinopriL 2022-1 Yes 5mg 1 tablet. Un chen 5 mg tablet 0-26 ity of 00:00: [place] [facility] lisinopriL 2022-1 Yes 5mg 1 tablet. Un chen 5 mg tablet 0-26 ity of 00:00: [place] [facility] lisinopriL 2022-1 Yes 5mg 1 tablet. Un chen 5 mg tablet 0-26 ity of 00:00: [place] [facility] lisinopriL 2022-1 Yes 5mg 1 tablet. Un chen 5 mg tablet 0-26 ity of 00:00: [place] [facility] lisinopriL 2022-1 Yes 5mg 1 tablet. Un chen 5 mg tablet 0-26 ity of 00:00: [facility] lisinopriL 2022- Yes 5mg 1 tablet. [...] 5 mg tablet 0-26 ity of 00:00: [facility] lisinopriL 202- Yes 5mg 1 tablet. Un chen 5 mg tablet 0-26 ity of 00:00: [facility] lisinopriL 2021- Yes 5mg 1 tablet. Un chen 5 mg tablet 0-26 ity of 00:00: [facility] lisinopriL 202- Yes 5mg 1 tablet. Un chen 5 mg tablet 0-26 ity of 00:00: [facility] lisinopriL 2021- Yes 5mg 1 tablet. Un chen 5 mg tablet 0-26 ity of 00:00: [facility] lisinopriL 2021- Yes 5mg 1 tablet. Un chen 5 mg tablet 0-26 ity of 00:00: [facility] lisinopriL 2021- Yes 5mg 1 tablet. Un chen 5 mg tablet 0-26 ity of 00:00: [facility] lisinopriL 202- Yes 5mg 1 tablet. Un chen 5 mg tablet 0-26 ity of 00:00: [facility] lisinopriL 202- Yes 5mg 1 tablet. Un chen 5 mg tablet 0-26 ity of 00:00: [facility] lisinopriL 202- Yes 5mg 1 tablet. Un chen 5 mg tablet 0-26 ity of 00:00: [facility] lisinopriL 2021- Yes 5mg 1 tablet. [...] 5 mg tablet 0-26 ity of 00:00: [facility] lisinopriL 2022- Yes 5mg 1 tablet. [...] 5 mg tablet 0-26 ity of 00:00: [place] [facility] lisinopriL 2022-1 Yes 5mg 1 [...] 5 mg tablet 0-26 ity of 00:00: [place] [facility] lisinopriL 2022-1 Yes 5mg 1 tablet. Un chen 5 mg tablet 0-26 ity of 00:00: [place] [facility] lisinopriL 2022-1 Yes 5mg 1 tablet. Un chen 5 mg tablet 0-26 ity of 00:00: [facility] lisinopriL 2022-1 Yes 5mg 1 tablet. Un chen 5 mg tablet 0-26 ity of 00:00: [place] [facility] lisinopriL 2022-1 Yes 5mg 1 tablet. Un chen 5 mg tablet 0-26 ity of 00:00: [place] [facility] lisinopriL 2022-1 Yes 5mg 1 tablet. Un chen 5 mg tablet 0-26 ity of 00:00: [place] [facility] lisinopriL 2022-1 Yes 5mg 1 tablet. Un chen 5 mg tablet 0-26 ity of 00:00: [facility] lisinopriL 2022-1 Yes 5mg 1 tablet. Un chen 5 mg tablet 0-26 ity of 00:00: [place] [facility] lisinopriL 2022-1 Yes 5mg 1 tablet. Un chen 5 mg tablet 0-26 ity of 00:00: [place] [facility] lisinopriL 2022-1 Yes 5mg 1 tablet. Un chen 5 mg tablet 0-26 ity of 00:00: [place] [facility] lisinopriL 2022-1 Yes 5mg 1 tablet. Un chen 5 mg tablet 0-26 ity of 00:00: [facility] lisinopriL 2022-1 Yes 5mg 1 tablet. Un chen 5 mg tablet 0-26 ity of 00:00: [facility] lisinopriL 2022-1 Yes 5mg 1 tablet. Un chen 5 mg tablet 0-26 ity of 00:00: [facility] lisinopriL 2022-1 Yes 5mg 1 tablet. Un chen 5 mg tablet 0-26 ity of 00:00: [facility] lisinopriL 2022-1 Yes 5mg 1 tablet. Un chen 5 mg tablet 0-26 ity of 00:00: [facility] lisinopriL 2022- Yes 5mg 1 tablet. Un chen 5 mg tablet 0-26 ity of 00:00: [place] [facility] lisinopriL 2022- Yes 5mg 1 tablet. Un chen 5 mg tablet 0-26 ity of 00:00: [facility] lisinopriL 2022- Yes 5mg 1 tablet. Un chen 5 mg tablet 0-26 ity of 00:00: [facility] lisinopriL 2022-1 Yes 5mg 1 tablet. Un chen 5 mg tablet 0-26 ity of 00:00: [facility] lisinopriL 2022-1 Yes 5mg 1 tablet. Un chne 5 mg tablet 0-26 ity of 00:00: [facility] lisinopriL 2022-1 Yes 5mg 1 tablet. Un chen 5 mg tablet 0-26 ity of 00:00: [facility] lisinopriL 2022-1 Yes 5mg 1 tablet. Un chen 5 mg tablet 0-26 ity of 00:00: [place] [facility] lisinopriL 2022-1 Yes 5mg 1 tablet. Un chen 5 mg tablet 0-26 ity of 00:00: [facility] lisinopriL 2022-1 Yes 5mg 1 tablet. Un chen 5 mg tablet 0-26 ity of 00:00: [place] [facility] lisinopriL 2022-1 Yes 5mg 1 tablet. Un chen 5 mg tablet 0-26 ity of 00:00: [facility] lisinopriL 2022-1 Yes 5mg 1 tablet. [...] 5 mg tablet 0-26 ity of 00:00: [place] [facility] lisinopriL 2022-1 Yes 5mg 1 tablet. Un chen 5 mg tablet 0-26 ity of 00:00: [place] [facility] lisinopriL 2022-1 Yes 5mg 1 tablet. Un chen 5 mg tablet 0-26 ity of 00:00: [place] [facility] lisinopriL 2022-1 Yes 5mg 1 tablet. Un chen 5 mg tablet 0-26 ity of 00:00: [place] [facility] lisinopriL 2022-1 Yes 5mg 1 tablet. Un chen 5 mg tablet 0-26 ity of 00:00: [place] [facility] lisinopriL 2022-1 Yes 5mg 1 tablet. Un chen 5 mg tablet 0-26 ity of 00:00: [place] [facility] lisinopriL 2022-1 Yes 5mg 1 tablet. Un chen 5 mg tablet 0-26 ity of 00:00: [place] [facility] lisinopriL 2022-1 Yes 5mg 1 tablet. Un chen 5 mg tablet 0-26 ity of 00:00: [place] [facility] lisinopriL 2022-1 Yes 5mg 1 tablet. Un chen 5 mg tablet 0-26 ity of 00:00: [place] [facility] lisinopriL 2022-1 Yes 5mg 1 tablet. Un chen 5 mg tablet 0-26 ity of 00:00: [place] [facility] lisinopriL 2022-1 Yes 5mg 1 tablet. Un chen 5 mg tablet 0-26 ity of 00:00: [facility] lisinopriL 2021-03 Yes 5mg 1 tablet. Un chen 5 mg tablet 0-26 ity of 00:00: [facility] lisinopriL 2021-03 Yes 5mg 1 tablet. Un chen 5 mg tablet 0-26 ity of 00:00: [facility] lisinopriL 2021-03 Yes 5mg 1 tablet. Un chen 5 mg tablet 0-26 ity of 00:00: [facility] lisinopriL 2021-03 Yes 5mg 1 tablet. Un chen 5 mg tablet 0-26 ity of 00:00: [facility] lisinopriL 2021-03 Yes 5mg 1 tablet. Un chen 5 mg tablet 0-26 ity of 00:00: [facility] Branch Povidone-Io 2021-03 Yes [id number] Apply to Univers dine 10 % 0-24 area(s) 2 ity o f swab stick 00:00: (two) [place] 00 times Medical daily as Branch needed for Other (straight cath). Povidone-Io 2021-03 Yes [id number] Apply to Univers dine 10 % 0-24 area(s) 2 ity o f swab stick 00:00: (two) [place] 00 times Medical daily as Branch needed for Other (straight cath). Povidone-Io 2021-03 Yes [id number] Apply to Univers dine 10 % 0-24 area(s) 2 ity o f swab stick 00:00: (two) [place] 00 times Medical daily as Branch needed for Other (straight cath). Povidone-Io 2021-03 Yes [id number] Apply to Univers dine 10 % 0-24 area(s) 2 ity o f swab stick 00:00: (two) [place] 00 times Medical daily as Branch needed for Other (straight cath). Povidone-Io 2021-03 Yes [id number] Apply to Univers dine 10 % 0-24 area(s) 2 ity o f swab stick 00:00: (two) [place] 00 times Medical daily as Branch needed for Other (straight cath). Povidone-Io 2021-03 Yes [id number] Apply to Univers dine 10 % 0-24 area(s) 2 ity o f swab stick 00:00: (two) [place] 00 times Medical daily as Branch needed for Other (straight cath). Povidone-Io 2021-03 Yes [id number] Apply to Univers dine 10 % 0-24 area(s) 2 ity o f swab stick 00:00: (two) [place] 00 times Medical daily as Branch needed for Other (straight cath). Povidone-Io 2021-03 Yes [id number] Apply to Univers dine 10 % 0-24 area(s) 2 ity o f swab stick 00:00: (two) [place] 00 times Medical daily as Branch needed for Other (straight cath). Povidone-Io 2021-03 Yes [id number] Apply to Univers dine 10 % 0-24 area(s) 2 ity o f swab stick 00:00: (two) [place] 00 times Medical daily as Branch needed for Other (straight cath). Povidone-Io 2021-03 Yes [id number] Apply to Univers dine 10 % 0-24 area(s) 2 ity o f swab stick 00:00: (two) [place] 00 times Medical daily as Branch needed for Other (straight cath). Povidone-Io 2021-03 Yes [id number] Apply to Univers dine 10 % 0-24 area(s) 2 ity o f swab stick 00:00: (two) [place] 00 times Medical daily as Branch needed for Other (straight cath). Povidone-Io 2021-03 Yes [id number] Apply to Univers dine 10 % 0-24 area(s) 2 ity o f swab stick 00:00: (two) [place] 00 times Medical daily as Branch needed for Other (straight cath). Povidone-Io 2021-03 Yes [id number] Apply to Univers dine 10 % 0-24 area(s) 2 ity o f swab stick 00:00: (two) [place] 00 times Medical daily as Branch needed for Other (straight cath). Povidone-Io 2021-03 Yes [id number] Apply to Univers dine 10 % 0-24 area(s) 2 ity o f swab stick 00:00: (two) [place] 00 times Medical daily as Branch needed for Other (straight cath). Povidone-Io 2021-03 Yes [id number] Apply to Univers dine 10 % 0-24 area(s) 2 ity o f swab stick 00:00: (two) [place] 00 times Medical daily as Branch needed for Other (straight cath). Povidone-Io 2021-03 Yes [id number] Apply to Univers dine 10 % 0-24 area(s) 2 ity o f swab stick 00:00: (two) [place] 00 times Medical daily as Branch needed for Other (straight cath). Povidone-Io 2021-03 Yes [id number] Apply to Univers dine 10 % 0-24 area(s) 2 ity o f swab stick 00:00: (two) [place] 00 times Medical daily as Branch needed for Other (straight cath). Povidone-Io 2021-03 Yes [id number] Apply to Univers dine 10 % 0-24 area(s) 2 ity o f swab stick 00:00: (two) [place] 00 times Medical daily as Branch needed for Other (straight cath). Povidone-Io 2021-03 Yes [id number] Apply to Univers dine 10 % 0-24 area(s) 2 ity o f swab stick 00:00: (two) [place] 00 times Medical daily as Branch needed for Other (straight cath). Povidone-Io 2021-03 Yes [id number] Apply to Univers dine 10 % 0-24 area(s) 2 ity o f swab stick 00:00: (two) [place] 00 times Medical daily as Branch needed for Other (straight cath). Povidone-Io 2021-03 Yes [id number] Apply to Univers dine 10 % 0-24 area(s) 2 ity o f swab stick 00:00: (two) [place] 00 times Medical daily as Branch needed for Other (straight cath). Povidone-Io 2021-03 Yes [id number] Apply to Univers dine 10 % 0-24 area(s) 2 ity o f swab stick 00:00: (two) [place] 00 times Medical daily as Branch needed for Other (straight cath). Povidone-Io 2021-03 Yes [id number] Apply to Univers dine 10 % 0-24 area(s) 2 ity o f swab stick 00:00: (two) [place] 00 times Medical daily as Branch needed for Other (straight cath). Povidone-Io 2021-03 Yes [id number] Apply to Univers dine 10 % 0-24 area(s) 2 ity o f swab stick 00:00: (two) [place] 00 times Medical daily as Branch needed for Other (straight cath). Povidone-Io 2021-03 Yes [id number] Apply to Univers dine 10 % 0-24 area(s) 2 ity o f swab stick 00:00: (two) [place] 00 times Medical daily as Branch needed for Other (straight cath). Povidone-Io 2021-03 Yes [id number] Apply to Univers dine 10 % 0-24 area(s) 2 ity o f swab stick 00:00: (two) [place] 00 times Medical daily as Branch needed for Other (straight cath). Povidone-Io 2021-03 Yes [id number] Apply to Univers dine 10 % 0-24 area(s) 2 ity o f swab stick 00:00: (two) [place] 00 times Medical daily as Branch needed for Other (straight cath). Povidone-Io 2021-03 Yes [id number] Apply to Univers dine 10 % 0-24 area(s) 2 ity o f swab stick 00:00: (two) [place] 00 times Medical daily as Branch needed for Other (straight cath). Povidone-Io 2021-03 Yes [id number] Apply to Univers dine 10 % 0-24 area(s) 2 ity o f swab stick 00:00: (two) [place] 00 times Medical daily as Branch needed for Other (straight cath). Povidone-Io 2021-03 Yes [id number] Apply to Univers dine 10 % 0-24 area(s) 2 ity o f swab stick 00:00: (two) [place] 00 times Medical daily as Branch needed for Other (straight cath). Povidone-Io 2021-03 Yes [id number] Apply to Univers dine 10 % 0-24 area(s) 2 ity o f swab stick 00:00: (two) [place] 00 times Medical daily as Branch needed for Other (straight cath). Povidone-Io 2021-03 Yes [id number] Apply to Univers dine 10 % 0-24 area(s) 2 ity o f swab stick 00:00: (two) [place] 00 times Medical daily as Branch needed for Other (straight cath). Povidone-Io 2021-03 Yes [id number] Apply to Univers dine 10 % 0-24 area(s) 2 ity o f swab stick 00:00: (two) [place] 00 times Medical daily as Branch needed for Other (straight cath). Povidone-Io 2021-03 Yes [id number] Apply to Univers dine 10 % 0-24 area(s) 2 ity o f swab stick 00:00: (two) [place] 00 times Medical daily as Branch needed for Other (straight cath). Povidone-Io 2021-03 Yes [id number] Apply to Univers dine 10 % 0-24 area(s) 2 ity o f swab stick 00:00: (two) [place] 00 times Medical daily as Branch needed for Other (straight cath). Povidone-Io 2021-03 Yes [id number] Apply to Univers dine 10 % 0-24 area(s) 2 ity o f swab stick 00:00: (two) [place] 00 times Medical daily as Branch needed for Other (straight cath). Povidone-Io 2021-03 Yes [id number] Apply to Univers dine 10 % 0-24 area(s) 2 ity o f swab stick 00:00: (two) [place] 00 times Medical daily as Branch needed for Other (straight cath). Povidone-Io 2021-03 Yes [id number] Apply to Univers dine 10 % 0-24 area(s) 2 ity o f swab stick 00:00: (two) [place] 00 times Medical daily as Branch needed for Other (straight cath). Povidone-Io 2021-03 Yes [id number] Apply to Univers dine 10 % 0-24 area(s) 2 ity o f swab stick 00:00: (two) [place] 00 times Medical daily as Branch needed for Other (straight cath). Povidone-Io 2021-03 Yes [id number] Apply to Univers dine 10 % 0-24 area(s) 2 ity o f swab stick 00:00: (two) [place] 00 times Medical daily as Branch needed for Other (straight cath). Povidone-Io 2021-03 Yes [id number] Apply to Univers dine 10 % 0-24 area(s) 2 ity o f swab stick 00:00: (two) [place] 00 times Medical daily as Branch needed for Other (straight cath). Povidone-Io 2021-03 Yes [id number] Apply to Univers dine 10 % 0-24 area(s) 2 ity o f swab stick 00:00: (two) [place] 00 times Medical daily as Branch needed for Other (straight cath). Povidone-Io 2021-03 Yes [id number] Apply to Univers dine 10 % 0-24 area(s) 2 ity o f swab stick 00:00: (two) [place] 00 times Medical daily as Branch needed for Other (straight cath). Povidone-Io 2021-03 Yes [id number] Apply to Univers dine 10 % 0-24 area(s) 2 ity o f swab stick 00:00: (two) [place] 00 times Medical daily as Branch needed for Other (straight cath). Povidone-Io 2021-03 Yes [id number] Apply to Univers dine 10 % 0-24 area(s) 2 ity o f swab stick 00:00: (two) [place] 00 times Medical daily as Branch needed for Other (straight cath). Povidone-Io 2021-03 Yes [id number] [facility] to [facility] dine 10 % 0-24 area(s) 2 ity o f swab stick 00:00: (two) [place] 00 times Medical daily as Branch needed for Other (straight cath). Povidone-Io 2021-03 Yes [id number] Apply to [facility] dine 10 % 0-24 area(s) 2 ity o f swab stick 00:00: (two) [place] 00 times Medical daily as Branch needed for Other (straight cath). Povidone-Io 2021-03 Yes [id number] Apply to [facility] dine 10 % 0-24 area(s) 2 ity o f swab stick 00:00: (two) [place] 00 times Medical daily as Branch needed for Other (straight cath). Povidone-Io 2021-03 Yes [id number] Apply to [facility] dine 10 % 0-24 area(s) 2 ity o f swab stick 00:00: (two) [place] 00 times Medical daily as Branch needed for Other (straight cath). Povidone-Io 2021-03 Yes [id number] Apply to [facility] dine 10 % 0-24 area(s) 2 ity o f swab stick 00:00: (two) [place] 00 times Medical daily as Branch needed for Other (straight cath). Povidone-Io 2021-03 Yes [id number] Apply to [facility] dine 10 % 0-24 area(s) 2 ity o f swab stick 00:00: (two) [place] 00 times Medical daily as Branch needed for Other (straight cath). Povidone-Io 2021-03 Yes [id number] Apply to [facility] dine 10 % 0-24 area(s) 2 ity o f swab stick 00:00: (two) [place] 00 times Medical daily as Branch needed for Other (straight cath). Povidone-Io 2021-03 Yes [id number] Apply to [facility] dine 10 % 0-24 area(s) 2 ity o f swab stick 00:00: (two) [place] 00 times Medical daily as Branch needed for Other (straight cath). Povidone-Io 2021-03 Yes [id number] Apply to [facility] dine 10 % 0-24 area(s) 2 ity o f swab stick 00:00: (two) [place] 00 times Medical daily as Branch needed for Other (straight cath). Povidone-Io 2021-03 Yes [id number] Apply to [facility] dine 10 % 0-24 area(s) 2 ity o f swab stick 00:00: (two) [place] 00 times Medical daily as Branch needed for Other (straight cath). Povidone-Io 2021-03 Yes [id number] Apply to [facility] dine 10 % 0-24 area(s) 2 ity o f swab stick 00:00: (two) [place] 00 times Medical daily as Branch needed for Other (straight cath). Povidone-Io 2021-03 Yes [id number] Apply to [facility] dine 10 % 0-24 area(s) 2 ity o f swab stick 00:00: (two) [place] 00 times Medical daily as Branch needed for Other (straight cath). Povidone-Io 2021-03 Yes [id number] Apply to [facility] dine 10 % 0-24 area(s) 2 ity o f swab stick 00:00: (two) [place] 00 times Medical daily as Branch needed for Other (straight cath). Povidone-Io 2021-03 Yes [id number] Apply to [facility] dine 10 % 0-24 area(s) 2 ity o f swab stick 00:00: (two) [place] 00 times Medical daily as Branch needed for Other (straight cath). Povidone-Io 2021-03 Yes [id number] Apply to [facility] dine 10 % 0-24 area(s) 2 ity o f swab stick 00:00: (two) [place] 00 times Medical daily as Branch needed for Other (straight cath). Povidone-Io 2021-03 Yes [id number] Apply to [facility] dine 10 % 0-24 area(s) 2 ity o f swab stick 00:00: (two) [place] 00 times Medical daily as Branch needed for Other (straight cath). Povidone-Io 2021-03 Yes [id number] Apply to [facility] dine 10 % 0-24 area(s) 2 ity o f swab stick 00:00: (two) [place] 00 times Medical daily as Branch needed for Other (straight cath). Povidone-Io 2021-03 Yes [id number] Apply to [facility] dine 10 % 0-24 area(s) 2 ity o f swab stick 00:00: (two) [place] 00 times Medical daily as Branch needed for Other (straight cath). Povidone-Io 2021-03 Yes [id number] Apply to [facility] dine 10 % 0-24 area(s) 2 ity o f swab stick 00:00: (two) [place] 00 times Medical daily as Branch needed for Other (straight cath). Povidone-Io 2021-03 Yes [id number] Apply to [facility] dine 10 % 0-24 area(s) 2 ity o f swab stick 00:00: (two) [place] 00 times Medical daily as Branch needed for Other (straight cath). Povidone-Io 2021-03 Yes [id number] Apply to [facility] dine 10 % 0-24 area(s) 2 ity o f swab stick 00:00: (two) [place] 00 times Medical daily as Branch needed for Other (straight cath). Povidone-Io 2021-03 Yes [id number] Apply to [facility] dine 10 % 0-24 area(s) 2 ity o f swab stick 00:00: (two) [place] 00 times Medical daily as Branch needed for Other (straight cath). Povidone-Io 2021-03 Yes [id number] Apply to [facility] dine 10 % 0-24 area(s) 2 ity o f swab stick 00:00: (two) [place] 00 times Medical daily as Branch needed for Other (straight cath). Povidone-Io 2021-03 Yes [id number] Apply to [facility] dine 10 % 0-24 area(s) 2 ity o f swab stick 00:00: (two) [place] 00 times Medical daily as Branch needed for Other (straight cath). Povidone-Io 2021-03 Yes [id number] Apply to [facility] dine 10 % 0-24 area(s) 2 ity o f swab stick 00:00: (two) [place] 00 times Medical daily as Branch needed for Other (straight cath). Povidone-Io 2021-03 Yes [id number] Apply to [facility] dine 10 % 0-24 area(s) 2 ity o f swab stick 00:00: (two) [place] 00 times Medical daily as Branch needed for Other (straight cath). Povidone-Io 2021-03 Yes [id number] Apply to [facility] dine 10 % 0-24 area(s) 2 ity o f swab stick 00:00: (two) [place] 00 times Medical daily as Branch needed for Other (straight cath). Povidone-Io 2021-03 Yes [id number] Apply to [facility] dine 10 % 0-24 area(s) 2 ity o f swab stick 00:00: (two) [place] 00 times Medical daily as Branch needed for Other (straight cath). Povidone-Io 2021-03 Yes [id number] Apply to [facility] dine 10 % 0-24 area(s) 2 ity o f swab stick 00:00: (two) [place] 00 times Medical daily as Branch needed for Other (straight cath). Povidone-Io 2021-03 Yes [id number] Apply to [facility] dine 10 % 0-24 area(s) 2 ity o f swab stick 00:00: (two) [place] 00 times Medical daily as Branch needed for Other (straight cath). Povidone-Io 2021-03 Yes [id number] Apply to [facility] dine 10 % 0-24 area(s) 2 ity o f swab stick 00:00: (two) [place] 00 times Medical daily as Branch needed for Other (straight cath). Povidone-Io 2021-03 Yes [id number] Apply to [facility] dine 10 % 0-24 area(s) 2 ity o f swab stick 00:00: (two) [place] 00 times Medical daily as Branch needed for Other (straight cath). Povidone-Io 2021-03 Yes [id number] Apply to [facility] dine 10 % 0-24 area(s) 2 ity o f swab stick 00:00: (two) [place] 00 times Medical daily as Branch needed for Other (straight cath). Povidone-Io 2021-03 Yes [id number] Apply to [facility] dine 10 % 0-24 area(s) 2 ity o f swab stick 00:00: (two) [place] 00 times Medical daily as Branch needed for Other (straight cath). Povidone-Io 2021-03 Yes [id number] Apply to [facility] dine 10 % 0-24 area(s) 2 ity o f swab stick 00:00: (two) [place] 00 times Medical daily as Branch needed for Other (straight cath). Povidone-Io 2021-03 Yes [id number] Apply to [facility] dine 10 % 0-24 area(s) 2 ity o f swab stick 00:00: (two) [place] 00 times Medical daily as Branch needed for Other (straight cath). Povidone-Io 2021-03 Yes [id number] Apply to [facility] dine 10 % 0-24 area(s) 2 ity o f swab stick 00:00: (two) [place] 00 times Medical daily as Branch needed for Other (straight cath). Povidone-Io 2021-03 Yes [id number] Apply to [facility] dine 10 % 0-24 area(s) 2 ity o f swab stick 00:00: (two) [place] 00 times Medical daily as Branch needed for Other (straight cath). Povidone-Io 2021-03 Yes [id number] Apply to [facility] dine 10 % 0-24 area(s) 2 ity o f swab stick 00:00: (two) [place] 00 times Medical daily as Branch needed for Other (straight cath). Povidone-Io 2021-03 Yes [id number] Apply to [facility] dine 10 % 0-24 area(s) 2 ity o f swab stick 00:00: (two) [place] 00 times Medical daily as Branch needed for Other (straight cath). Povidone-Io 2021-03 Yes [id number] Apply to [facility] dine 10 % 0-24 area(s) 2 ity o f swab stick 00:00: (two) [place] 00 times Medical daily as Branch needed for Other (straight cath). Povidone-Io 2021-03 Yes [id number] Apply to [facility] dine 10 % 0-24 area(s) 2 ity o f swab stick 00:00: (two) [place] 00 times Medical daily as Branch needed for Other (straight cath). Povidone-Io 2021-03 Yes [id number] Apply to [facility] dine 10 % 0-24 area(s) 2 ity o f swab stick 00:00: (two) [place] 00 times Medical daily as Branch needed for Other (straight cath). Povidone-Io 2021-03 Yes [id number] Apply to [facility] dine 10 % 0-24 area(s) 2 ity o f swab stick 00:00: (two) [place] 00 times Medical daily as Branch needed for Other (straight cath). Povidone-Io 2021-03 Yes [id number] Apply to [facility] dine 10 % 0-24 area(s) 2 ity o f swab stick 00:00: (two) [place] 00 times Medical daily as Branch needed for Other (straight cath). Povidone-Io 2021-03 Yes [id number] Apply to [facility] dine 10 % 0-24 area(s) 2 ity o f swab stick 00:00: (two) [place] 00 times Medical daily as Branch needed for Other (straight cath). Povidone-Io 2021-03 Yes [id number] Apply to [facility] dine 10 % 0-24 area(s) 2 ity o f swab stick 00:00: (two) [place] 00 times Medical daily as Branch needed for Other (straight cath). Povidone-Io 2021-03 Yes [id number] Apply to [facility] dine 10 % 0-24 area(s) 2 ity o f swab stick 00:00: (two) [place] 00 times Medical daily as Branch needed for Other (straight cath). Povidone-Io 2021-03 Yes [id number] Apply to [facility] dine 10 % 0-24 area(s) 2 ity o f swab stick 00:00: (two) [place] 00 times Medical daily as Branch needed for Other (straight cath). Povidone-Io 2021-03 Yes [id number] Apply to [facility] dine 10 % 0-24 area(s) 2 ity o f swab stick 00:00: (two) [place] 00 times Medical daily as Branch needed for Other (straight cath). Povidone-Io 2021-03 Yes [id number] Apply to [facility] dine 10 % 0-24 area(s) 2 ity o f swab stick 00:00: (two) [place] 00 times Medical daily as Branch needed for Other (straight cath). Povidone-Io 2021-03 Yes [id number] Apply to [facility] dine 10 % 0-24 area(s) 2 ity o f swab stick 00:00: (two) [place] 00 times Medical daily as Branch needed for Other (straight cath). Povidone-Io 2021-03 Yes [id number] Apply to [facility] dine 10 % 0-24 area(s) 2 ity o f swab stick 00:00: (two) [place] 00 times Medical daily as Branch needed for Other (straight cath). Povidone-Io 2021-03 Yes [id number] Apply to [facility] dine 10 % 0-24 area(s) 2 ity o f swab stick 00:00: (two) [place] 00 times Medical daily as Branch needed for Other (straight cath). Povidone-Io 2021-03 Yes [id number] Apply to [facility] dine 10 % 0-24 area(s) 2 ity o f swab stick 00:00: (two) [place] 00 times Medical daily as Branch needed for Other (straight cath). cephALEXin 2021-03- No [id number] 500mg Take 1 Univers (KEFLEX) 0-24 10-28 capsule by ity of 500 mg 00:00: 00:00 mouth 4 [place] capsule 00 :00 (four) Medical times Branch daily for 10 days. oxyBUTYnin 2021-03 Yes 5mg 1 tablet. Un chen chloride 5 0-07 ity of mg tablet 00:00: [place] [facility] acyclovir 2021-03 Yes 200mg 1 capsule. U nivers 200 mg 0-07 ity of capsule 00:00: Medical Branch atorvastati 2021-03 Yes 40mg 0.5 Univer s n 80 mg 0-07 tablets. ity of tablet 00:00: [place] [facility] cyanocobala 2021-03 Yes INJECT 1 Un chen min 1,000 0-07 ML ity of mcg/mL 00:00: INTRAMUSCU [place] injection 00 LAR Medical EVERY [place] MONTH FOR ANEMIA finasteride 2021-03 Yes 5mg 1 tablet. U nivers 5 mg tablet 0-07 ity of 00:00: [place] [facility] oxyBUTYnin 2021-03 Yes 5mg 1 tablet. Un chen chloride 5 0-07 ity of mg tablet 00:00: [place] [facility] acyclovir 2021-03 Yes 200mg 1 capsule. U nivers 200 mg 0-07 ity of capsule 00:00: [place] [facility] atorvastati 2021-03 Yes 40mg 0.5 Univer s n 80 mg 0-07 tablets. ity of tablet 00:00: [place] [facility] cyanocobala 2021-03 Yes INJECT 1 Un chen min 1,000 0-07 ML ity of mcg/mL 00:00: INTRAMUSCU [place] injection 00 LARLY Medical EVERY [place] MONTH FOR ANEMIA finasteride 2021-03 Yes 5mg 1 tablet. U nivers 5 mg tablet 0-07 ity of 00:00: [place] [facility] oxyBUTYnin 2021-03 Yes 5mg 1 tablet. Un chen chloride 5 0-07 ity of mg tablet 00:00: [place] [facility] acyclovir 2021-03 Yes 200mg 1 capsule. U nivers 200 mg 0-07 ity of capsule 00:00: [place] [facility] atorvastati 2021-03 Yes 40mg 0.5 [...] 5 0-07 ity of mg tablet 00:00: [facility] acyclovir 2021-03 Yes 200mg 1 capsule. [...] mg 0-07 tablets. ity of tablet 00:00: [facility] cyanocobala 2021-03 Yes INJECT 1 Un chen min 1,000 0-07 ML ity of mcg/mL 00:00: INTRAMUSCU [place] injection 00 LARLY Medical EVERY Branch MONTH FOR ANEMIA finasteride 2021-03 Yes 5mg 1 tablet. U nivers 5 mg tablet 0-07 ity of 00:00: [facility] oxyBUTYnin 2021-03 Yes 5mg 1 tablet. Un chen chloride 5 0-07 ity of mg tablet 00:00: [facility] acyclovir 2021-03 Yes 200mg 1 capsule. U nivers 200 mg 0-07 ity of capsule 00:00: [facility] atorvastati 2021-03 Yes 40mg 0.5 Univer s n 80 mg 0-07 tablets. ity of tablet 00:00: [facility] cyanocobala 2021-03 Yes INJECT 1 Un chen min 1,000 0-07 ML ity of mcg/mL 00:00: INTRAMUSCU [place] injection LAR Medical EVERY [place] MONTH FOR ANEMIA finasteride 2021-03 Yes 5mg 1 tablet. U nivers 5 mg tablet 0-07 ity of 00:00: [facility] acyclovir 2021-03 Yes 200mg 1 capsule. U nivers 200 mg 0-07 ity of capsule 00:00: [facility] oxyBUTYnin 2021-03 Yes 5mg 1 tablet. Un chen chloride 5 0-07 ity of mg tablet 00:00: [facility] atorvastati 2021-03 Yes 40mg 0.5 Univer s n 80 mg 0-07 tablets. ity of tablet 00:00: [facility] acyclovir 2021-03 Yes 200mg 1 capsule. U nivers 200 mg 0-07 ity of capsule 00:00: Medical Branch atorvastati 2021-03 Yes 40mg 0.5 Univer s n 80 mg 0-07 tablets. ity of tablet 00:00: [facility] cyanocobala 2021-03 Yes INJECT 1 Un [...] 5 0-07 ity of mg tablet 00:00: [facility] acyclovir 2021-03 Yes 200mg 1 capsule. U nivers 200 mg 0-07 ity of capsule 00:00: [facility] atorvastati 2021-03 Yes 40mg 0.5 Univer s n 80 mg 0-07 tablets. ity of tablet 00:00: [facility] cyanocobala 2021-03 Yes INJECT 1 Un chen min 1,000 0-07 ML ity of mcg/mL 00:00: INTRAMUSCU [place] injection LARLY Medical EVERY Branch MONTH FOR ANEMIA finasteride 2021-03 Yes 5mg 1 tablet. U nivers 5 mg tablet 0-07 ity of 00:00: [facility] oxyBUTYnin 2021-03 Yes 5mg 1 tablet. Un chen chloride 5 0-07 ity of mg tablet 00:00: [facility] oxyBUTYnin 2021-03 Yes 5mg 1 tablet. Un chen chloride 5 0-07 ity of mg tablet 00:00: [facility] acyclovir 2021-03 Yes 200mg 1 capsule. U nivers 200 mg 0-07 ity of capsule 00:00: [facility] atorvastati 2021-03 Yes 40mg 0.5 Univer s n 80 mg 0-07 tablets. ity of tablet 00:00: [facility] cyanocobala 2021-03 Yes INJECT 1 Un chen min 1,000 0-07 ML ity of mcg/mL 00:00: INTRAMUSCU [place] injection 00 LARLY Medical EVERY Branch MONTH FOR ANEMIA finasteride 2021-03 Yes 5mg 1 tablet. U nivers 5 mg tablet 0-07 ity of 00:00: [facility] oxyBUTYnin 2021-03 Yes 5mg 1 tablet. Un chen chloride 5 0-07 ity of mg tablet 00:00: [facility] acyclovir 2021-03 Yes 200mg 1 capsule. U nivers 200 mg 0-07 ity of capsule 00:00: [facility] atorvastati 2021-03 Yes 40mg 0.5 Univer [...] 5 mg tablet 0-07 ity of 00:00: [place] [facility] oxyBUTYnin 2021-03 Yes 5mg 1 tablet. Un chen chloride 5 0-07 ity of mg tablet 00:00: [place] [facility] acyclovir 2021-03 Yes 200mg 1 capsule. U nivers 200 mg 0-07 ity of capsule 00:00: [facility] atorvastati 2021-03 Yes 40mg 0.5 Univer s n 80 mg 0-07 tablets. ity of tablet 00:00: [facility] cyanocobala 2021-03 Yes INJECT 1 Un chen min 1,000 0-07 ML ity of mcg/mL 00:00: INTRAMUSCU [place] injection 00 LARLY Medical EVERY Branch MONTH FOR ANEMIA finasteride 2021-03 Yes 5mg 1 tablet. U nivers 5 mg tablet 0-07 ity of 00:00: Medical Branch oxyBUTYnin 2021-03 Yes 5mg 1 tablet. Un chen chloride 5 0-07 ity of mg tablet 00:00: [facility] acyclovir 2021-03 Yes 200mg 1 capsule. U nivers 200 mg 0-07 ity of capsule 00:00: [facility] atorvastati 2021-03 Yes 40mg 0.5 Univer s n 80 mg 0-07 tablets. ity of tablet 00:00: Medical Branch cyanocobala 2021-03 Yes INJECT 1 Un chen min 1,000 0-07 ML ity of mcg/mL 00:00: INTRAMUSCU [place] injection 00 LARLY Medical EVERY Branch MONTH FOR ANEMIA finasteride 2021-03 Yes 5mg 1 tablet. U nivers 5 mg tablet 0-07 ity of 00:00: [facility] oxyBUTYnin 2021-03 Yes 5mg 1 tablet. Un chen chloride 5 0-07 ity of mg tablet 00:00: [facility] acyclovir 2021-03 Yes 200mg 1 capsule. U nivers 200 mg 0-07 ity of capsule 00:00: [facility] atorvastati 2021-03 Yes 40mg 0.5 Univer s n 80 mg 0-07 tablets. ity of tablet 00:00: [facility] cyanocobala 2021-03 Yes INJECT 1 Un chen min 1,000 0-07 ML ity of mcg/mL 00:00: [facility] [place] [facility] Yes 5mg 1 tablet. U nivers 5 mg tablet 0-07 ity of 00:00: [place] [facility] oxyBUTYnin 2021-03 Yes 5mg 1 tablet. Un chen chloride 5 0-07 ity of mg tablet 00:00: [facility] acyclovir 2021-03 Yes 200mg 1 capsule. U nivers 200 mg 0-07 ity of capsule 00:00: [place] [facility] atorvastati 2021-03 Yes 40mg 0.5 Univer s n 80 mg 0-07 tablets. ity of tablet 00:00: [facility] cyanocobala 2021-03 Yes INJECT 1 Un chen min 1,000 0-07 ML ity of mcg/mL 00:00: [facility]USCU [place] [facility] fin[facility] 2021-03 Yes 5mg 1 tablet. U nivers 5 mg tablet 0-07 ity of 00:00: [facility] acyclovir 2021-03 Yes 200mg 1 capsule. U nivers 200 mg 0-07 ity of capsule 00:00: [facility] oxyBUTYnin 2021-03 Yes 5mg 1 tablet. Un chen chloride 5 0-07 ity of mg tablet 00:00: [facility] atorvastati 2021-03 Yes 40mg 0.5 Univer s n 80 mg 0-07 tablets. ity of tablet 00:00: Medical Branch acyclovir 2021-03 Yes 200mg 1 capsule. U nivers 200 mg 0-07 ity of capsule 00:00: Medical Branch atorvastati 2021-03 Yes 40mg 0.5 Univer s n 80 mg 0-07 tablets. ity of tablet 00:00: Medical Branch cyanocobala 2021-03 Yes INJECT 1 Un chen min 1,000 0-07 ML ity of mcg/mL 00:00: INTRAMUSCU [place] injection 00 LARLY Medical EVERY [place] MONTH FOR ANEMIA finasteride 2021-03 Yes 5mg 1 tablet. U nivers 5 mg tablet 0-07 ity of 00:00: [place] [facility] oxyBUTYnin 2021-03 Yes 5mg 1 tablet. Un chen chloride 5 0-07 ity of mg tablet 00:00: [place] [facility] acyclovir 2021-03 Yes 200mg 1 capsule. U nivers 200 mg 0-07 ity of capsule 00:00: [place] [facility] atorvastati 2021-03 Yes 40mg 0.5 Univer s n 80 mg 0-07 tablets. ity of tablet 00:00: [facility] cyanocobala 2021-03 Yes INJECT 1 Un chen min 1,000 0-07 ML ity of mcg/mL 00:00: INTRAMUSCU [place] injection 00 LARLY Medical EVERY [place] MONTH FOR ANEMIA finasteride 2021-03 Yes 5mg 1 tablet. U nivers 5 mg tablet 0-07 ity of 00:00: Medical Branch cyanocobala 2021-03 Yes INJECT 1 Un chen min 1,000 0-07 ML ity of mcg/mL 00:00: INTRAMUSCU [place] injection 00 LARLY Medical EVERY [place] MONTH FOR ANEMIA oxyBUTYnin 2021-03 Yes 5mg 1 tablet. Un chen chloride 5 0-07 ity of mg tablet 00:00: Medical Branch finasteride 2021-03 Yes 5mg 1 tablet. U [...] 5 0-07 ity of mg tablet 00:00: [facility] acyclovir 2021-03 Yes 200mg 1 capsule. [...] 5 0-07 ity of mg tablet 00:00: [facility] acyclovir 2021-03 Yes 200mg 1 capsule. U nivers 200 mg 0-07 ity of capsule 00:00: Medical Branch atorvastati 2021-03 Yes 40mg 0.5 Univer s n 80 mg 0-07 tablets. ity of tablet 00:00: Medical Branch cyanocobala 2021-03 Yes INJECT 1 Un chen min 1,000 0-07 ML ity of mcg/mL 00:00: INTRAMUSCU [place] injection 00 LAR Medical EVERY [place] MONTH FOR ANEMIA finasteride 2021-03 Yes 5mg 1 tablet. U nivers 5 mg tablet 0-07 ity of 00:00: [facility] oxyBUTYnin 2021-03 Yes 5mg 1 tablet. Un chen chloride 5 0-07 ity of mg tablet 00:00: [facility] acyclovir 2021-03 Yes 200mg 1 capsule. U nivers 200 mg 0-07 ity of capsule 00:00: [facility] atorvastati 2021-03 Yes 40mg 0.5 Univer s n 80 mg 0-07 tablets. ity of tablet 00:00: [facility] cyanocobala 2021-03 Yes INJECT 1 Un chen min 1,000 0-07 ML ity of mcg/mL 00:00: INTRAMUSCU [place] injection LARLY Medical EVERY [place] MONTH FOR ANEMIA finasteride 2021-03 Yes 5mg 1 tablet. U nivers 5 mg tablet 0-07 ity of 00:00: Medical Branch oxyBUTYnin 2021-03 Yes 5mg 1 tablet. Un chen chloride 5 0-07 ity of mg tablet 00:00: [facility] acyclovir 2021-03 Yes 200mg 1 capsule. U nivers 200 mg 0-07 ity of capsule 00:00: [facility] atorvastati 2021-03 Yes 40mg 0.5 Univer s n 80 mg 0-07 tablets. ity of tablet 00:00: [facility] cyanocobala 2021-03 Yes INJECT 1 Un [...] 5 mg tablet 0-07 ity of 00:00: [facility] oxyBUTYnin 2021-03 Yes 5mg 1 tablet. Un chen chloride 5 0-07 ity of mg tablet 00:00: [facility] acyclovir 2021-03 Yes 200mg 1 capsule. [...] 00:00: INTRAMUSCU [place] injection LARLY Medical EVERY [place] MONTH FOR ANEMIA finasteride 2021-03 Yes 5mg 1 tablet. U nivers 5 mg tablet 0-07 ity of 00:00: Medical Branch acyclovir 2021-03 Yes 200mg 1 capsule. U nivers 200 mg 0-07 ity of capsule 00:00: [facility] oxyBUTYnin 2021-03 Yes 5mg 1 tablet. Un chen chloride 5 0-07 ity of mg tablet 00:00: [facility] atorvastati 2021-03 Yes 40mg 0.5 Univer s n 80 mg 0-07 tablets. ity of tablet 00:00: Medical Branch acyclovir 2021-03 Yes 200mg 1 capsule. U nivers 200 mg 0-07 ity of capsule 00:00: [facility] atorvastati 2021-03 Yes 40mg 0.5 Univer s n 80 mg 0-07 tablets. ity of tablet 00:00: [facility] cyanocobala 2021-03 Yes INJECT 1 Un chen min 1,000 0-07 ML ity of mcg/mL 00:00: INTRAMUSCU [place] injection LAR Medical EVERY [place] MONTH FOR ANEMIA finasteride 2021-03 Yes 5mg 1 tablet. U nivers 5 mg tablet 0-07 ity of 00:00: Medical Branch oxyBUTYnin 2021-03 Yes 5mg 1 tablet. Un chen chloride 5 0-07 ity of mg tablet 00:00: [facility] acyclovir 2021-03 Yes 200mg 1 capsule. U nivers 200 mg 0-07 ity of capsule 00:00: [facility] atorvastati 2021-03 Yes 40mg 0.5 Univer s n 80 mg 0-07 tablets. ity of tablet 00:00: Medical Branch cyanocobala 2021-03 Yes INJECT 1 Un chen min 1,000 0-07 ML ity of mcg/mL 00:00: INTRAMUSCU [place] injection 00 [facility] EVERY Branch MONTH FOR ANEMIA finasteride 2021-03 [...] LARLY Medical EVERY Branch MONTH FOR ANEMIA acyclovir 2021-03 Yes 200mg 1 capsule. U nivers 200 mg 0-07 ity of capsule 00:00: Medical Branch finasteride 2021-03 Yes 5mg 1 tablet. U nivers 5 mg tablet 0-07 ity of 00:00: [facility] Branch atorvastati 2021-03 Yes 40mg [...] tablets. ity of tablet 00:00: Medical Branch oxyBUTYnin 2021-03 Yes 5mg 1 tablet. Un chen chloride 5 0-07 ity of mg tablet 00:00: [facility] cyanocobala 2021-03 Yes INJECT 1 Un chen min 1,000 0-07 ML ity of mcg/mL 00:00: INTRAMUSCU [place] injection LARLY Medical EVERY [place] MONTH FOR ANEMIA finasteride 2021-03 Yes 5mg 1 tablet. U nivers 5 mg tablet 0-07 ity of 00:00: [facility] Branch oxyBUTYnin 2021-03 Yes 5mg 1 tablet. Un chen chloride 5 0-07 ity of mg tablet 00:00: [facility] acyclovir 2021-03 Yes 200mg 1 capsule. U nivers 200 mg 0-07 ity of capsule 00:00: [facility] atorvastati 2021-03 Yes 40mg 0.5 Univer s n 80 mg 0-07 tablets. ity of tablet 00:00: [facility] cyanocobala 2021-03 Yes INJECT 1 Un chen min 1,000 0-07 ML ity of mcg/mL 00:00: INTRAMUSCU [place] injection LARLY Medical EVERY Branch MONTH FOR ANEMIA finasteride 2021-03 Yes 5mg 1 tablet. U nivers 5 mg tablet 0-07 ity of 00:00: [facility] Branch oxyBUTYnin 2021-03 Yes 5mg 1 tablet. Un chen chloride 5 0-07 ity of mg tablet 00:00: [facility] acyclovir 2021-03 Yes 200mg 1 capsule. [...] mg 0-07 tablets. ity of tablet 00:00: [facility] cyanocobala 2021-03 Yes INJECT 1 Un chen min 1,000 0-07 ML ity of mcg/mL 00:00: INTRAMUSCU [place] injection LARLY Medical EVERY Branch MONTH FOR ANEMIA finasteride 2021-03 Yes 5mg 1 tablet. U nivers 5 mg tablet 0-07 ity of 00:00: Medical Branch oxyBUTYnin 2021-03 Yes 5mg 1 tablet. Un chen chloride 5 0-07 ity of mg tablet 00:00: [facility] acyclovir 2021-03 Yes 200mg 1 capsule. U nivers 200 mg 0-07 ity of capsule 00:00: [facility] atorvastati 2021-03 Yes 40mg 0.5 Univer s n 80 mg 0-07 tablets. ity of tablet 00:00: [facility] cyanocobala 2021-03 Yes INJECT 1 Un [...] 0-07 ity of capsule 00:00: [facility] acyclovir 2021-03 Yes 200mg 1 capsule. U nivers 200 mg 0-07 ity of capsule 00:00: [facility] atorvastati 2021-03 Yes 40mg 0.5 Univer s n 80 mg 0-07 tablets. ity of tablet 00:00: [facility] cyanocobala 2021-03 Yes INJECT 1 Un chen min 1,000 0-07 ML ity of mcg/mL 00:00: INTRAMUSCU [place] injection 00 LARLY Medical EVERY Branch MONTH FOR ANEMIA finasteride 2021-03 Yes 5mg 1 tablet. U nivers 5 mg tablet 0-07 ity of 00:00: [facility] atorvastati 2021-03 Yes 40mg 0.5 Univer s n 80 mg 0-07 tablets. ity of tablet 00:00: [facility] oxyBUTYnin 2021-03 Yes [...] LARLY Medical EVERY Branch MONTH FOR ANEMIA acyclovir 2021-03 Yes 200mg 1 capsule. U [...] 5 mg tablet 0-07 ity of 00:00: [place] [facility] finasteride 2021-03 Yes 5mg 1 tablet. U nivers 5 mg tablet 0-07 ity of 00:00: [facility] oxyBUTYnin 2021-03 Yes 5mg 1 tablet. Un chen chloride 5 0-07 ity of mg tablet 00:00: [facility] acyclovir 2021-03 Yes 200mg 1 capsule. U nivers 200 mg 0-07 ity of capsule 00:00: [facility] atorvastati 2021-03 Yes 40mg 0.5 Univer s n 80 mg 0-07 tablets. ity of tablet 00:00: [facility] cyanocobala 2021-03 Yes INJECT 1 Un chen min 1,000 0-07 ML ity of mcg/mL 00:00: [facility] [place] [facility] [place] [facility] finasteride 2021-03 Yes 5mg 1 tablet. U nivers 5 mg tablet 0-07 ity of 00:00: [facility] oxyBUTYnin 2021-03 Yes 5mg 1 tablet. Un chen chloride 5 0-07 ity of mg tablet 00:00: [facility] acyclovir 2021-03 Yes 200mg 1 capsule. U nivers 200 mg 0-07 ity of capsule 00:00: [facility] atorvastati 2021-03 Yes 40mg 0.5 Univer s n 80 mg 0-07 tablets. ity of tablet 00:00: [facility] cyanocobala 2021-03 Yes INJECT 1 Un chen min 1,000 0-07 ML ity of mcg/mL 00:00: INTRAMUSCU [place] injection LAR Medical EVERY [place] MONTH FOR ANEMIA finasteride 2021-03 Yes 5mg 1 tablet. U nivers 5 mg tablet 0-07 ity of 00:00: [facility] oxyBUTYnin 2021-03 Yes 5mg 1 tablet. Un chen chloride 5 0-07 ity of mg tablet 00:00: [facility] oxyBUTYnin 2021-03 Yes 5mg 1 tablet. Un chen chloride 5 0-07 ity of mg tablet 00:00: [facility] acyclovir 2021-03 Yes 200mg 1 capsule. U nivers 200 mg 0-07 ity of capsule 00:00: [facility] atorvastati 2021-03 Yes 40mg 0.5 Univer [...] 5 mg tablet 0-07 ity of 00:00: [place] [facility] oxyBUTYnin 2021-03 Yes 5mg 1 tablet. Un chen chloride 5 0-07 ity of mg tablet 00:00: [place] [facility] acyclovir 2021-03 Yes 200mg 1 capsule. U nivers 200 mg 0-07 ity of capsule 00:00: [facility] atorvastati 2021-03 Yes 40mg 0.5 Univer [...] 5 mg tablet 0-07 ity of 00:00: [facility] oxyBUTYnin 2021-03 Yes 5mg 1 tablet. Un chen chloride 5 0-07 ity of mg tablet 00:00: [facility] acyclovir 2021-03 Yes 200mg 1 capsule. U nivers 200 mg 0-07 ity of capsule 00:00: [facility] atorvastati 2021-03 Yes 40mg 0.5 Univer s n 80 mg 0-07 tablets. ity of tablet 00:00: [facility] cyanocobala 2021-03 Yes INJECT 1 Un chen min 1,000 0-07 ML ity of mcg/mL 00:00: INTRAMUSCU [place] injection 00 [facility] MONTH FOR ANEMIA finasteride 2021-03 Yes 5mg 1 tablet. U nivers 5 mg tablet 0-07 ity of 00:00: [facility] oxyBUTYnin 2021-03 Yes 5mg 1 tablet. Un chen chloride 5 0-07 ity of mg tablet 00:00: [facility] acyclovir 2021-03 Yes 200mg 1 capsule. U nivers 200 mg 0-07 ity of capsule 00:00: [facility] atorvastati 2021-03 Yes 40mg 0.5 Univer s n 80 mg 0-07 tablets. ity of tablet 00:00: [facility] cyanocobala 2021-03 Yes INJECT 1 Un chen min 1,000 0-07 ML ity of mcg/mL 00:00: INTRAMUSCU [place] injection 00 [facility] MONTH FOR ANEMIA finasteride 2021-03 Yes 5mg 1 tablet. U nivers 5 mg tablet 0-07 ity of 00:00: [facility] oxyBUTYnin 2021-03 Yes 5mg 1 tablet. Un chen chloride 5 0-07 ity of mg tablet 00:00: [facility] acyclovir 2021-03 Yes 200mg 1 capsule. U nivers 200 mg 0-07 ity of capsule 00:00: [facility] atorvastati 2021-03 Yes 40mg 0.5 Univer s n 80 mg 0-07 tablets. ity of tablet 00:00: [facility] cyanocobala 2021-03 Yes INJECT 1 Un [...] 5 0-07 ity of mg tablet 00:00: [facility] acyclovir 2021-03 Yes 200mg 1 capsule. U nivers 200 mg 0-07 ity of capsule 00:00: [facility] atorvastati 2021-03 Yes 40mg 0.5 Univer s n 80 mg 0-07 tablets. ity of tablet 00:00: [facility] cyanocobala 2021-03 Yes INJECT 1 Un chen min 1,000 0-07 ML ity of mcg/mL 00:00: INTRAMUSCU [place] injection 00 LARLY Medical EVERY Branch MONTH FOR ANEMIA finasteride 2021-03 Yes 5mg 1 tablet. U nivers 5 mg tablet 0-07 ity of 00:00: [facility] oxyBUTYnin 2021-03 Yes 5mg 1 tablet. Un chen chloride 5 0-07 ity of mg tablet 00:00: [facility] acyclovir 2021-03 Yes 200mg 1 capsule. U nivers 200 mg 0-07 ity of capsule 00:00: [facility] atorvastati 2021-03 Yes 40mg 0.5 Univer s n 80 mg 0-07 tablets. ity of tablet 00:00: [facility] cyanocobala 2021-03 Yes INJECT 1 Un chen min 1,000 0-07 ML ity of mcg/mL 00:00: INTRAMUSCU [place] injection LARLY Medical EVERY Branch MONTH FOR ANEMIA finasteride 2021-03 Yes 5mg 1 tablet. U nivers 5 mg tablet 0-07 ity of 00:00: [facility] oxyBUTYnin 2021-03 Yes 5mg 1 tablet. Un chen chloride 5 0-07 ity of mg tablet 00:00: [facility] acyclovir 2021-03 Yes 200mg 1 capsule. U nivers 200 mg 0-07 ity of capsule 00:00: [facility] atorvastati 2021-03 Yes 40mg 0.5 Univer s n 80 mg 0-07 tablets. ity of tablet 00:00: [facility] cyanocobala 2021-03 Yes INJECT 1 Un chen min 1,000 0-07 ML ity of mcg/mL 00:00: INTRAMUSCU [place] injection 00 LARLY Medical EVERY Branch MONTH FOR ANEMIA finasteride 2021-03 Yes 5mg 1 tablet. U nivers 5 mg tablet 0-07 ity of 00:00: [facility] oxyBUTYnin 2021-03 Yes 5mg 1 tablet. Un chen chloride 5 0-07 ity of mg tablet 00:00: [facility] acyclovir 2021-03 Yes 200mg 1 capsule. U nivers 200 mg 0-07 ity of capsule 00:00: [facility] atorvastati 2021-03 Yes 40mg 0.5 Univer s n 80 mg 0-07 tablets. ity of tablet 00:00: [facility] cyanocobala 2021-03 Yes INJECT 1 Un chen min 1,000 0-07 ML ity of mcg/mL 00:00: INTRAMUSCU [place] injection LARLY Medical EVERY Branch MONTH FOR ANEMIA finasteride 2021-03 Yes 5mg 1 tablet. U nivers 5 mg tablet 0-07 ity of 00:00: [facility] oxyBUTYnin 2021-03 Yes 5mg 1 tablet. Un chen chloride 5 0-07 ity of mg tablet 00:00: [facility] acyclovir 2021-03 Yes 200mg 1 capsule. U nivers 200 mg 0-07 ity of capsule 00:00: [facility] atorvastati 2021-03 Yes 40mg 0.5 Univer [...] 200 mg 0-07 ity of capsule 00:00: [facility] atorvastati 2021-03 Yes 40mg 0.5 Univer s n 80 mg 0-07 tablets. ity of tablet 00:00: [place] [facility] cyanocobala 2021-03 Yes INJECT 1 [...] 5 0-07 ity of mg tablet 00:00: [facility] acyclovir 2021-03 Yes 200mg 1 capsule. U nivers 200 mg 0-07 ity of capsule 00:00: [facility] atorvastati 2021-03 Yes 40mg 0.5 Univer s n 80 mg 0-07 tablets. ity of tablet 00:00: [facility] cyanocobala 2021-03 Yes INJECT 1 Un chen min 1,000 0-07 ML ity of mcg/mL 00:00: [facility] [place] [facility] [place] [facility] finasteride 2021-03 Yes 5mg 1 tablet. U nivers 5 mg tablet 0-07 ity of 00:00: [facility] oxyBUTYnin 2021-03 Yes 5mg 1 tablet. Un chen chloride 5 0-07 ity of mg tablet 00:00: [facility] acyclovir 2021-03 Yes 200mg 1 capsule. U nivers 200 mg 0-07 ity of capsule 00:00: [facility] atorvastati 2021-03 Yes 40mg 0.5 Univer s n 80 mg 0-07 tablets. ity of tablet 00:00: [facility] cyanocobala 2021-03 Yes INJECT 1 Un chen min 1,000 0-07 ML ity of mcg/mL 00:00: INTRAMUSCU [place] injection 00 LAR Medical EVERY [place] MONTH FOR ANEMIA finasteride 2021-03 Yes 5mg 1 tablet. U nivers 5 mg tablet 0-07 ity of 00:00: [facility] oxyBUTYnin 2021-03 Yes 5mg 1 tablet. Un chen chloride 5 0-07 ity of mg tablet 00:00: [facility] acyclovir 2021-03 Yes 200mg 1 capsule. U nivers 200 mg 0-07 ity of capsule 00:00: [facility] atorvastati 2021-03 Yes 40mg 0.5 Univer s n 80 mg 0-07 tablets. ity of tablet 00:00: [facility] cyanocobala 2021-03 Yes INJECT 1 Un chen min 1,000 0-07 ML ity of mcg/mL 00:00: INTRAMUSCU [place] injection 00 LARLY Medical EVERY Branch MONTH FOR ANEMIA finasteride 2021-03 Yes 5mg 1 tablet. U nivers 5 mg tablet 0-07 ity of 00:00: [facility] oxyBUTYnin 2021-03 Yes 5mg 1 tablet. Un chen chloride 5 0-07 ity of mg tablet 00:00: [facility] acyclovir 2021-03 Yes 200mg 1 capsule. U nivers 200 mg 0-07 ity of capsule 00:00: [facility] atorvastati 2021-03 Yes 40mg 0.5 Univer s n 80 mg 0-07 tablets. ity of tablet 00:00: [facility] cyanocobala 2021-03 Yes INJECT 1 Un chen min 1,000 0-07 ML ity of mcg/mL 00:00: INTRAMUSCU [place] injection LARLY Medical EVERY Branch MONTH FOR ANEMIA finasteride 2021-03 Yes 5mg 1 tablet. U nivers 5 mg tablet 0-07 ity of 00:00: [facility] oxyBUTYnin 2021-03 Yes 5mg 1 tablet. Un chen chloride 5 0-07 ity of mg tablet 00:00: [facility] acyclovir 2021-03 Yes 200mg 1 capsule. U nivers 200 mg 0-07 ity of capsule 00:00: [facility] atorvastati 2021-03 Yes 40mg 0.5 Univer [...] 5 0-07 ity of mg tablet 00:00: [facility] acyclovir 2021-03 Yes 200mg 1 capsule. [...] 5 0-07 ity of mg tablet 00:00: [facility] acyclovir 2021-03 Yes 200mg 1 capsule. U nivers 200 mg 0-07 ity of capsule 00:00: [facility] atorvastati 2021-03 Yes 40mg 0.5 Univer s n 80 mg 0-07 tablets. ity of tablet 00:00: [facility] cyanocobala 2021-03 Yes INJECT 1 Un chen min 1,000 0-07 ML ity of mcg/mL 00:00: INTRAMUSCU [place] injection 00 LARLY Medical EVERY Branch MONTH FOR ANEMIA finasteride 2021-03 Yes 5mg 1 tablet. U nivers 5 mg tablet 0-07 ity of 00:00: [facility] oxyBUTYnin 2021-03 Yes 5mg 1 tablet. Un chen chloride 5 0-07 ity of mg tablet 00:00: [facility] acyclovir 2021-03 Yes 200mg 1 capsule. U nivers 200 mg 0-07 ity of capsule 00:00: [facility] atorvastati 2021-03 Yes 40mg 0.5 Univer s n 80 mg 0-07 tablets. ity of tablet 00:00: [facility] cyanocobala 2021-03 Yes INJECT 1 Un chen min 1,000 0-07 ML ity of mcg/mL 00:00: INTRAMUSCU [place] injection 00 LARLY Medical EVERY Branch MONTH FOR ANEMIA finasteride 2021-03 Yes 5mg 1 tablet. U nivers 5 mg tablet 0-07 ity of 00:00: [facility] oxyBUTYnin 2022-1 Yes 5mg 1 tablet. Un chen chloride 5 0-07 ity of mg tablet 00:00: [facility] acyclovir 2021-03 Yes 200mg 1 capsule. U nivers 200 mg 0-07 ity of capsule 00:00: [facility] atorvastati 2021-03 Yes 40mg 0.5 Univer s n 80 mg 0-07 tablets. ity of tablet 00:00: [facility] cyanocobala 2021-03 Yes INJECT 1 Un chen min 1,000 0-07 ML ity of mcg/mL 00:00: INTRAMUSCU [place] injection 00 LARLY Medical [facility] MONTH FOR ANEMIA finasteride 2021-03 Yes 5mg 1 tablet. U nivers 5 mg tablet 0-07 ity of 00:00: [facility] oxyBUTYnin 2021-03 Yes 5mg 1 tablet. Un chen chloride 5 0-07 ity of mg tablet 00:00: [facility] acyclovir 2021-03 Yes 200mg 1 capsule. U nivers 200 mg 0-07 ity of capsule 00:00: [facility] atorvastati 2021-03 Yes 40mg 0.5 Univer s n 80 mg 0-07 tablets. ity of tablet 00:00: [facility] cyanocobala 2021-03 Yes INJECT 1 Un chen min 1,000 0-07 ML ity of mcg/mL 00:00: INTRAMUSCU [place] injection 00 LARLY Medical [facility] MONTH FOR ANEMIA finasteride 2021-03 Yes 5mg 1 tablet. U nivers 5 mg tablet 0-07 ity of 00:00: [facility] oxyBUTYnin 2021-03 Yes 5mg 1 tablet. Un chen chloride 5 0-07 ity of mg tablet 00:00: [facility] acyclovir 2021-03 Yes 200mg 1 capsule. U nivers 200 mg 0-07 ity of capsule 00:00: [facility] atorvastati 2021-03 Yes 40mg 0.5 Univer s n 80 mg 0-07 tablets. ity of tablet 00:00: [facility] cyanocobala 2021-03 Yes INJECT 1 Un chen min 1,000 0-07 ML ity of mcg/mL 00:00: INTRAMUSCU [place] injection 00 LARLY Medical EVERY [place] MONTH FOR ANEMIA finasteride 2021-03 Yes 5mg 1 tablet. U nivers 5 mg tablet 0-07 ity of 00:00: [facility] oxyBUTYnin 2021-03 Yes 5mg 1 tablet. Un chen chloride 5 0-07 ity of mg tablet 00:00: [facility] acyclovir 2021-03 Yes 200mg 1 capsule. U nivers 200 mg 0-07 ity of capsule 00:00: [facility] atorvastati 2021-03 Yes 40mg 0.5 Univer [...] 5 0-07 ity of mg tablet 00:00: [facility] acyclovir 2021-03 Yes 200mg 1 capsule. U nivers 200 mg 0-07 ity of capsule 00:00: [facility] atorvastati 2021-03 Yes 40mg 0.5 Univer [...] 200 mg 0-07 ity of capsule 00:00: [facility] atorvastati 2021-03 Yes 40mg 0.5 Univer [...] of mcg/mL 00:00: INTRAMUSCU [place] injection 00 [facility] EVERY [place] MONTH FOR ANEMIA finasteride 2021-03 Yes 5mg 1 tablet. U nivers 5 mg tablet 0-07 ity of 00:00: [place] [facility] oxyBUTYnin 2021-03 Yes 5mg 1 tablet. Un chen chloride 5 0-07 ity of mg tablet 00:00: [facility] acyclovir 2021-03 Yes 200mg 1 capsule. U nivers 200 mg 0-07 ity of capsule 00:00: [place] [facility] atorvastati 2021-03 Yes 40mg 0.5 Univer s n 80 mg 0-07 tablets. ity of tablet 00:00: [place] [facility] cyanocobala 2021-03 Yes INJECT 1 Un chen min 1,000 0-07 ML ity of mcg/mL 00:00: [facility] [place] [facility] [place] [facility] finasteride 2021-03 Yes 5mg 1 tablet. U nivers 5 mg tablet 0-07 ity of 00:00: [place] 00 [facility] metoprolol 2021-03- No 25mg 0.5 Univer s tartrate 50 0-07 04-09 tablets. ity of mg tablet 00:00: 00:00 [place] 00 :00 [facility] Branch metoprolol 2021-2022- No 25mg 0.5 Univer s tartrate 50 0-07 04-09 tablets. ity of mg tablet 00:00: 00:00 [place] 00 :00 [facility] dimethyl 2-0 Yes 240mg 1 [...] 00:00: [place] capsule 00 [facility] dimethyl 2021-0 Yes 240mg 1 capsule. Un chen fumarate 8-19 ity of 240 mg 00:00: [place] capsule 00 [facility] dimethyl 2021-0 Yes 240mg 1 capsule. Un chen fumarate 8-19 ity of 240 mg 00:00: [place] capsule 00 [facility] latanoprost 2021-0 Yes INSTILL 1 U nivers [...] drops DAY TO Branch AFFECTED EYE(S) brinzolamid Yes INSTILL 1 U nivers e-brimonidi [...] EVERY Medical MORNING Branch FOR GLAUCOMA timolol 0 Yes INSTILL [...] drops DAY TO Branch AFFECTED EYE(S) brinzolamid Yes INSTILL 1 U nivers e-brimonidi [...] 00 EVERY Medical EVENING Branch FOR GLAUCOMA latanoprost 2021-0 Yes INSTILL 1 U nivers [...] EVERY Medical MORNING Branch FOR GLAUCOMA timolol 0 Yes INSTILL [...] drops DAY TO Branch AFFECTED EYE(S) latanoprost 2022-0 Yes INSTILL 1 U nivers 0.005 % [...] Branch AFFECTED EYE(S) ibuprofen 2020-03- No 800mg [id number] Take 800 [facility] (ADVIL,MOTR 2-30 12-[id number] [place]) 800 MG 21:53: 00:00 3D mouth 3 Hos [facility] tablet 50 :00 (three) l times a day as needed for mild pain. ibuprofen 2020-03- No 800mg Q.[id number] Take 1 [facility] (ADVIL) 800 2-30 01-[id number] MG tablet 00:00: 05:59 3D (800 mg [facility] 00 :00 total) by l mouth 3 (three) times a day as needed for mild pain for up to 30 days. ibuprofen 2020-03- No 800mg Q.[id number] Take 1 [facility] (ADVIL) 800 2-30 01-[id number] MG tablet 00:00: 05:59 3D [...] latanoprost Yes 1[drp] QD Administer [facility] (XALATAN) [address] 0.005 % 12:59: both eyes Hospi ta ophthalmic 54 nightly. l solution levothyroxi Yes 25ug QD Take 25 Met hodi ne 8-[address] (SYNTHROID, 12:59: mouth Hospi ta LEVOTHROID) 54 every l 25 MCG morning. tablet metoprolol Yes 25mg Q12H Take 25 mg M [facility]i tartrate 11-[address] (LOPRESSOR) 12:59: every 12 Ho [facility]ita 25 mg 54 (twelve) l tablet hours. oxybutynin Yes 5mg Q.[id number] Take 5 mg [facility] (DITROPAN) 11-18 [id number] mouth [address] 5 MG tablet [...] 1[drp] Q.5D Apply 1 M ethodi e-brimonidi 11-[address] ne 12:59: eye 2 [...] Take 5 mg M [facility]i (PROSCAR) [address] mg tablet 12:59: daily. Hospit a 54 l gabapentin Yes 900mg QD Take 900 Me thodi (NEURONTIN) 8-[address] 300 MG 12:59: mouth Hospita capsule 54 daily with l dinner. latanoprost Yes 1[drp] QD Administer [facility] (XALATAN) 11-[address] 0.005 % 12:59: [...] l tablet hours. oxybutynin 0 Yes 5mg Q.[id number] Take 5 mg [facility] (DITROPAN) 8- [id number] by mouth 3 st 5 MG tablet [...] ta ophthalmic 54 nightly. l solution levothyroxi 2021-0 Yes 25ug QD Take 25 Met hodi ne 8-[address] (SYNTHROID, 12:59: mouth Hospi ta LEVOTHROID) 54 every l 25 MCG morning. tablet metoprolol Yes 25mg Q12H Take 25 mg M ethodi tartrate 8-[address] (LOPRESSOR) 12:59: every 12 Ho [facility]ita 25 mg 54 (twelve) l tablet hours. oxybutynin Yes 5mg Q.[id number] Take 5 mg [facility] (DITROPAN) 8-[id number] mouth 3 [address] 5 MG tablet [...] st mg tablet 00:00: daily. Hospit a l amLODIPine 2022- No 5mg QD Take 5 mg M [facility]i (NORVASC) 5 3-28 10-[address] mg tablet 00:00: 00:00 daily. Hospi ta 00 :00 l bisacodyl Yes 10mg QD Place [address] [facility] (DULCOLAX, 9-14 mg [facility] BISACODYL,) 16:33: rectally Me dical 10 mg 05 daily. Center suppository carBAMazepi 2016- Yes 400mg Q.5D Take [address] ne 9-14 mg by [facility] (TEGRETOL) 16:33: mouth 2 Medi nelson 200 mg 05 (two) Center tablet times daily . cetirizine 20170 Yes 5mg QD Take [address] (ZYRTEC) 5 9-14 by mouth [facility] MG tablet 16:33: daily. Medica l 05 Center [place] cyanocobala 0 Yes 1000ug Inject [facility] min 9-14 1,000 mcg [facility] (VITAMIN 16:33: intramuscu Med ical B-12) 1,000 05 larly Center mcg/mL once. injection finasteride 2017-0 Yes 5mg QD Take [address] (PROSCAR) 5 9-14 by mouth [facility] mg tablet 16:33: daily. Medica l 05 [facility] [place] gabapentin 2017-0 Yes 600mg Q.5D Take 600 [...] 50 MG 24 hr 16:33: daily. Medi nelsno tablet 05 Center niacin 100 Yes 100mg QD Take [address] MG tablet 9-14 mg by [facility] 16:33: mouth Medical 05 nightly . [facility] [place] oxybutynin Yes 5mg Q.[id number] Take [address] [facility] [address] (DITROPAN) 9-14 [id number] by mouth 3 [facility] 5 MG tablet [...] tablet 16:33: daily. Medica l 05 Center [place] cyanocobala 2017-0 Yes 1000ug Inject [facility] min 9-14 1,000 mcg [facility] (VITAMIN 16:33: intramuscu Med ical B-12) 1,000 05 larly Center mcg/mL once. injection finasteride 2017-0 Yes 5mg QD Take [address] (PROSCAR) 5 9-14 by mouth [facility] mg tablet 16:33: daily. Medica l [address] [place] [address] gabapentin 2017-0 Yes 600mg Q.5D Take 600 [...] mouth Medical 05 nightly . Center oxybutynin 2017 Yes 5mg Q.[id number] Take [address] [facility] (DITROPAN) 9-14 [id number] by mouth 3 [facility] 5 MG tablet 16:33: 3D (three) Med ical 05 times Center daily. brinzolamid Yes Apply to [facility] e-brimonidi 9-14 eye(s). [facility] ne 16:33: Medical (SIMBRINZA) 05 Center 1-0.2 % DrpS simvastatin Yes 80mg QD Take [address] (ZOCOR) 80 9-14 by mouth [facility] MG tablet 16:33: nightly. Medi neslon 05 Center dimethyl 20170 Yes Q.5D Take [...] mouth Medical capsule 05 nightly. Center albuterol 2017 Yes 2.5mg Take 2.[address] (PROVENTIL) 9-14 mg by [facility] 2.5 mg /3 16:33: nebulizati Me dical mL (0.083 05 on every 6 Cent er %) (six) nebulizer hours as solution needed for Wheezing. bisacodyl [address] 10 [...] [facility] MG tablet 16:33: daily. Medica l [address] [place] [address] cyanocobala 2017-0 Yes 1000ug Inject [facility] min 9-14 1,000 mcg [facility] (VITAMIN 16:33: intramuscu Med ical B-12) 1,000 05 larly Center mcg/mL once. injection finasteride 2017-0 Yes 5mg QD Take [address] (PROSCAR) 5 9-14 by mouth [facility] mg tablet 16:33: daily. Medica l [address] [place] [address] gabapentin 20170 Yes 600mg Q.5D Take [address] (NEURONTIN) 9-14 mg by [facility] 600 MG 16:33: mouth 2 Medical tablet 05 (two) Center times daily With breakfast and lunch . gabapentin 20170 Yes 900mg QD Take 900 [facility] [...] 0.005 % 16:33: Medical ophthalmic 05 Center [place] solution levothyroxi 2017-0 Yes 25ug Take [address] ne 9-14 mcg by [facility] (SYNTHROID, 16:33: mouth Medic al LEVOTHROID) 05 Every Center 25 MCG morning on tablet an empty stomach. metoprolol 2017-0 Yes 50mg QD Take [address] (TOPROL-XL) 9-14 by mouth [facility] 50 MG 24 hr 16:33: daily. Medi nelson tablet 05 Center [place] niacin 100 2017-0 Yes 100mg QD Take [address] MG tablet 9-14 mg by [facility] 16:33: mouth Medical 05 nightly . Center oxybutynin Yes 5mg Q.[id number] Take [address] [facility] [address] (DITROPAN) 9-14 [id number] by mouth 3 [facility] 5 MG tablet 16:33: 3D (three) Med ical 05 times Center daily. brinzolamid Yes Apply to [facility] e-brimonidi 14 eye(s). [facility] ne 16:33: Medical (SIMBRINZA) 05 [...] hours as solution needed for Wheezing. bisacodyl [address] 10 [...] 16:33: daily. Medica l 05 Center cyanocobala 2017 Yes 1000ug Inject [facility] min 9-14 1,000 [facility]cg [facility] (VITAMIN 16:33: intramuscu Med ical B-12) 1,000 05 larly Center mcg/mL once. injection finasteride 2017 Yes 5mg QD Take [address] (PROSCAR) 5 9-14 by mouth [facility] mg tablet 16:33: daily. Medica l 05 Center albuterol 20170 Yes 2.5mg Take 2.[address] (PROVENTIL) 9-14 mg by [facility] 2.5 mg /3 16:33: nebulizati Me dical mL (0.083 05 on every 6 Cent er %) (six) nebulizer hours as solution needed for Wheezing. gabapentin 2017 Yes 600mg Q.5D Take [address] (NEURONTIN) 9-14 mg by [facility] 600 MG 16:33: mouth 2 Medical tablet 05 (two) Center times daily With breakfast and lunch . gabapentin 2017 Yes 900mg QD Take 900 [facility] [...] morning on tablet an empty stomach. metoprolol 20170 Yes 50mg QD Take [address] (TOPROL-XL) 9-14 by mouth [facility] 50 MG 24 hr 16:33: daily. Medi nelson tablet 05 Center niacin 100 2017- Yes 100mg QD Take [address] MG tablet 9-14 mg by [facility] 16:33: mouth Medical 05 nightly . [facility] [place] oxybutynin Yes 5mg Q.[id number] Take [address] [address] (DITROPAN) 9-14 [id number] by mouth 3 [facility] 5 MG tablet 16:33: 3D (three) Med ical 05 times Center daily. brinzolamid Yes Apply to [facility] e-brimonidi 14 eye(s). [facility] ne 16:33: Medical (SIMBRINZA) 05 [...] 16:33: mouth Medical capsule 05 nightly. Center [place] Immunizations Ordered Filled Date Status Comments Source Immunization Name Immunization Name [facility] 2021-09-04 [facility]pleted [facility] 2021-09-04 [facility] 2021-09-04 Com[facility] 2021-09-04 Com[facility] 2021-09-04 Completed [facility] 2021-09-04 Com[facility] 2021-09-04 Completed [facility] 2021-09-04 Completed [facility] 2021-09-04 Completed [facility] 00:00:00 [facility] 2021-09-04 Completed [facility] o f 00[facility]00:00 [facility] 2021-09-04 Completed [facility] o f 00:00:00 [facility] 2021-09-04 Completed [facility] o f 00:00:00 [facility] 2021-09-04 Completed University o f 00:00:00 [facility] BEBTELOVIMAB 2021-09-04 Completed University o f 00:00:00 [facility] BEBTELOVIMAB 2021-09-04 Completed University o f 00:00:00 [facility] BEBTELOVIMAB 2021-09-04 Completed University o f 00:00:00 [facility] BEBTELOVIMAB 2021-09-04 Completed University o f 00:00:00 [facility] BEBTELOVIMAB 2021-09-04 Completed University o f 00:00:00 [facility] BEBTELOVIMAB 2021-09-04 Completed University o f 00:00:00 [facility] BEBTELOVIMAB 2021-09-04 Completed University o f 00:00:00 [facility] BEBTELOVIMAB 2021-09-04 Completed University o f 00:00:00 [facility] BEBTELOVIMAB 2021-09-04 Completed University o f 00:00:00 [facility] BEBTELOVIMAB 2021-09-04 Completed University o f 00:00:00 [facility] BEBTELOVIMAB 2021-09-04 Completed University o f 00:00:00 [facility] BEBTELOVIMAB 2021-09-04 Completed University o f 00:00:00 [facility] BEBTELOVIMAB 2021-09-04 Completed University o f 00:00:00 [facility] BEBTELOVIMAB 2021-09-04 Completed University o f 00:00:00 [facility] BEBTELOVIMAB 2021-09-04 Completed University o f 00:00:00 [facility] BEBTELOVIMAB 2021-09-04 Completed University o f 00:00:00 [facility] BEBTELOVIMAB 2021-09-04 Completed University o f 00:00:00 [facility] BEBTELOVIMAB 2021-09-04 Completed University o f 00:00:00 [facility] BEBTELOVIMAB 2021-09-04 Completed University o f 00:00:00 [facility] BEBTELOVIMAB 2021-09-04 Completed University o f 00:00:00 [facility] BEBTELOVIMAB 2021-09-04 Completed University o f 00:00:00 [facility] BEBTELOVIMAB 2021-09-04 Completed University o f 00:00:00 [facility] BEBTELOVIMAB 2021-09-04 Completed University o f 00:00:00 [facility] BEBTELOVIMAB 2021-09-04 Completed University o f 00:00:00 [facility] BEBTELOVIMAB 2021-09-04 Completed University o f 00:00:00 [facility] BEBTELOVIMAB 2021-09-04 Completed University o f 00:00:00 [facility] BEBTELOVIMAB 2021-09-04 Completed University o f 00:00:00 [facility] BEBTELOVIMAB 2021-09-04 Completed University o f 00:00:00 [facility] BEBTELOVIMAB 2021-09-04 Completed University o f 00:00:00 [facility] BEBTELOVIMAB 2021-09-04 Completed University o f 00:00:00 [facility] BEBTELOVIMAB 2021-09-04 Completed University o f 00:00:00 [facility] BEBTELOVIMAB 2021-09-04 Completed University o f 00:00:00 [facility] BEBTELOVIMAB 2021-09-04 Completed University o f 00:00:00 [facility] BEBTELOVIMAB 2021-09-04 Completed University o f 00:00:00 [facility] BEBTELOVIMAB 2021-09-04 Completed University o f 00:00:00 [facility] BEBTELOVIMAB 2021-09-04 Completed University o f 00:00:00 [facility] BEBTELOVIMAB 2021-09-04 Completed University o f 00:00:00 [facility] BEBTELOVIMAB 2021-09-04 Completed University o f 00:00:00 [facility] BEBTELOVIMAB 2021-09-04 Completed University o f 00:00:00 [facility] BEBTELOVIMAB 2021-09-04 Completed University o f 00:00:00 [facility] BEBTELOVIMAB 2021-09-04 Completed University o f 00:00:00 [facility] BEBTELOVIMAB 2021-09-04 Completed University o f 00:00:00 [facility] BEBTELOVIMAB 2021-09-04 Completed University o f 00:00:00 [facility] BEBTELOVIMAB 2021-09-04 Completed University o f 00:00:00 [facility] BEBTELOVIMAB 2021-09-04 Completed University o f 00:00:00 [facility] BEBTELOVIMAB 2021-09-04 Completed University o f 00:00:00 [facility] BEBTELOVIMAB 2021-09-04 Completed University o f 00:00:00 [facility] BEBTELOVIMAB 2021-09-04 Completed University o f 00:00:00 [facility] BEBTELOVIMAB 2021-09-04 Completed University o f 00:00:00 [facility] BEBTELOVIMAB 2021-09-04 Completed University o f 00:00:00 [facility] BEBTELOVIMAB 2021-09-04 Completed University o f 00:00:00 [facility] BEBTELOVIMAB 2021-09-04 Completed University o f 00:00:00 [facility] BEBTELOVIMAB 2021-09-04 Completed University o f 00:00:00 [facility] BEBTELOVIMAB 2021-09-04 Completed University o f 00:00:00 [facility] BEBTELOVIMAB 2021-09-04 Completed University o f 00:00:00 [facility] BEBTELOVIMAB 2021-09-04 Completed University o f 00:00:00 [facility] BEBTELOVIMAB 2021-09-04 Completed University o f 00:00:00 [facility] BEBTELOVIMAB 2021-09-04 Completed University o f 00:00:00 [facility] BEBTELOVIMAB 2021-09-04 Completed University o f 00:00:00 [facility] BEBTELOVIMAB 2021-09-04 Completed University o f 00:00:00 [facility] BEBTELOVIMAB 2021-09-04 Completed University o f 00:00:00 [facility] BEBTELOVIMAB 2021-09-04 Completed University o f 00:00:00 [facility] BEBTELOVIMAB 2021-09-04 Completed University o f 00:00:00 [facility] BEBTELOVIMAB 2021-09-04 Completed University o f 00:00:00 [facility] BEBTELOVIMAB 2021-09-04 Completed University o f 00:00:00 [facility] BEBTELOVIMAB 2021-09-04 Completed University o f 00:00:00 [facility] BEBTELOVIMAB 2021-09-04 Completed University o f 00:00:00 [facility] BEBTELOVIMAB 2021-09-04 Completed University o f 00:00:00 [facility] BEBTELOVIMAB 2021-09-04 Completed University o f 00:00:00 [facility] BEBTELOVIMAB 2021-09-04 Completed University o f 00:00:00 [facility] BEBTELOVIMAB 2021-09-04 Completed University o f 00:00:00 [facility] BEBTELOVIMAB Unknown Completed [place] [facility] BEBTELOVIMAB Unknown Completed [place] [facility] BEBTELOVIMAB Unknown Completed [place] [facility] BEBTELOVIMAB Unknown Completed [place] [facility] BEBTELOVIMAB Unknown Completed [place] [facility] BEBTELOVIMAB Unknown Completed [place] [facility] BEBTELOVIMAB Unknown Completed [place] [facility] BEBTELOVIMAB Unknown Completed [place] [facility] BEBTELOVIMAB Unknown Completed [place] [facility] BEBTELOVIMAB Unknown Completed [place] [facility] BEBTELOVIMAB Unknown Completed [place] [facility] BEBTELOVIMAB Unknown Completed [place] [facility] BEBTELOVIMAB Unknown Completed [place] [facility] BEBTELOVIMAB Unknown Completed [place] [facility] BEBTELOVIMAB Unknown Completed [place] [facility] BEBTELOVIMAB Unknown Completed [place] [facility] BEBTELOVIMAB Unknown Completed [place] [facility] BEBTELOVIMAB Unknown Completed [facility] BEBTELOVIMAB Unknown Completed [facility] Vital Signs Vital Name Observation Time Observation Value Comments Source Systolic blood 2022-07-05 20:13:00 108 mm[Hg] Univer sity of pressure [facility] Diastolic blood 2022-07-05 20:13:00 61 mm[Hg] Unive rsity of pressure [facility] Heart rate 2022-07-05 20:13:00 61 /min [facility] ty [facility] Body temperature 2022-07-05 20:13:00 36.89 [facility] Respiratory rate 2022-07-05 20:13:00 14 /min [facility] weight 2022-07-05 20:13:00 78.019 kg [facility] BMI 2022-07-05 20:13:00 26.94 kg/m2 [facility] Oxygen saturation in 2022-07-05 20:13:00 97 /min University of Arterial blood by [facility] Pulse oximetry Branch Systolic blood 2022-02-15 21:08:00 108 mm[Hg] Univer sity of pressure [facility] Diastolic blood 2022-02-15 21:08:00 63 mm[Hg] Unive rsity of pressure [facility] Heart rate 2022-02-15 21:08:00 62 /min Universi ty [facility] Body temperature 2022-02-15 21:08:00 36.89 Tabby Univ ersity of [facility] Respiratory rate 2022-02-15 21:08:00 16 /min Univ ersity of [facility] Oxygen saturation in 2022-02-15 21:08:00 99 /min University of Arterial blood by [facility] Pulse oximetry Branch Systolic blood 2022-01-23 17:44:00 149 mm[Hg] Univer sity of pressure [facility] Diastolic blood 2022-01-23 17:44:00 60 mm[Hg] Unive rsity of pressure [facility] Heart rate 2022-01-23 17:44:00 56 /min [facility]i [facility] [place] [facility] Body temperature 2022-01-23 17:44:00 36.89 Tabby [facility] ersity of [facility] Respiratory rate 2022-01-23 17:44:00 20 /min Univ ersity of [facility] Body height 2022-01-23 17:44:00 170.2 cm Universi ty of [facility] Body weight 2022-01-23 17:44:00 79.425 kg Universi ty of [facility] BMI 2022-01-23 17:44:00 27.42 kg/m2 Universi ty of [facility] Oxygen saturation in 2022-01-23 17:44:00 95 /min University of Arterial blood by [place] [employer] [facility] Pulse oximetry Branch Systolic blood 2021-09-04 22:35:00 112 mm[Hg] Univer sity of [facility] Diastolic blood 2021-09-04 22:35:00 52 mm[Hg] Unive rsity of [facility] Heart rate 2021-09-04 22:35:00 56 /min Universi ty [facility] Body temperature 2021-09-04 22:35:00 36.33 Tabby [facility] ersity [facility] Respiratory rate 2021-09-04 22:35:00 14 /min [facility] ersity [facility] Oxygen saturation in 2021-09-04 22:35:00 98 /min University of Arterial blood by [place] [facility] Pulse oximetry Branch Body height 2021-09-04 21:15:00 170.2 cm [facility] Body weight 2021-09-04 21:15:00 79.379 kg Universi ty [facility] BMI 2021-09-04 21:15:00 27.41 kg/m2 Universi ty [facility] Systolic blood 2023-01-01 14:15:00 146 mm[Hg] Method ist [facility] pressure Diastolic blood 2023-01-01 14:15:00 69 mm[Hg] Metho [facility] pressure Heart rate 2023-01-01 14:15:00 48 /min [facility] Body height 2023-01-01 14:15:00 [facility] Body weight 2023-01-01 14:15:00 74.844 [facility] BMI 2023-01-01 14:15:00 25.84 kg/m2 [facility] Oxygen saturation in 2023-01-01 14:15:00 97 /min [facility] Arterial blood by Pulse oximetry Systolic blood 2021-03-28 04:11:00 164 mm[Hg] [facility] pressure Diastolic blood 2021-03-28 04:11:00 74 mm[Hg] [facility] pressure Heart rate 2021-03-28 04:11:00 56 /min [facility] Body temperature 2021-03-28 04:11:00 36.61 Tabby [facility] Respiratory rate 2021-03-28 04:11:00 19 /min [facility] Oxygen saturation in 2021-03-28 04:11:00 100 /min [facility] Arterial blood by Pulse oximetry Body height 2021-03-28 01:34:00 170.2 cm [facility] Body weight 2021-03-28 01:34:00 83.462 kg [facility] BMI 2021-03-28 01:34:00 28.82 kg/m2 [facility] Procedures Procedure Date / Time Performed Performing Clinician [facility] e INDIVIDUAL CARDIAC 2023-01-08 12:22:00 Doctor Unassigned, No Uni [facility] [place] TREATMENT PLAN Name Medical Branch CARDIAC REHAB SESSION 2023-01-07 05:00:00 Doctor Unassigned, No [facility] REPORT Name [facility] TTE COMPLETE, WO 2023-01-05 20:21:46 [facility] CONTRAST, W DOPPLER ([id number]) ECG 12-LEAD 2023-01-01 14:26:40 Tremaine [facility] CARDIAC REHAB SESSION 2022-12-31 05:00:00 Doctor Unassigned, No [facility] REPORT Name Medical Branch CARDIAC REHAB SESSION 2022-12-17 05:00:00 Doctor Unassigned, No [facility] REPORT Name Medical Branch CARDIAC REHAB SESSION 2022-12-15 05:00:00 Doctor Unassigned, No [facility] REPORT Name Medical Branch INDIVIDUAL CARDIAC 2022-12-03 13:36:00 Doctor Unassigned, No [facility] [place] TREATMENT PLAN Name Medical Branch CARDIAC REHAB SESSION 2022-11-19 05:00:00 Doctor Unassigned, No [facility] REPORT Name Medical Branch INDIVIDUAL CARDIAC 2022-11-05 18:08:00 Doctor Unassigned, No [facility] [place] TREATMENT PLAN Name Medical Branch CARDIAC REHAB SESSION 2022-10-29 05:00:00 Doctor Unassigned, No [facility] REPORT Name Medical Branch INDIVIDUAL CARDIAC 2022-10-21 21:14:00 Doctor Unassigned, No [facility] [place] TREATMENT PLAN Name Medical Branch CARDIAC REHAB SESSION 2022-10-01 05:00:00 Doctor Unassigned, No [facility] REPORT Name Medical Branch INDIVIDUAL CARDIAC 2022-09-17 21:52:00 Doctor Unassigned, No [facility] [place] TREATMENT PLAN Name Medical Branch CARDIAC REHAB SESSION 2022-09-10 05:00:00 Doctor Unassigned, No [facility] REPORT Name Medical Branch CARDIAC REHAB SESSION 2022-09-08 05:00:00 Doctor Unassigned, No [facility] REPORT Name Medical Branch INDIVIDUAL CARDIAC 2022-08-28 21:56:00 Doctor Unassigned, No [facility] [place] TREATMENT PLAN Name Medical Branch CARDIAC REHAB SESSION 2022-08-11 05:00:00 Doctor Unassigned, No [facility] REPORT Name Medical Branch INDIVIDUAL CARDIAC 2022-07-30 18:05:00 Doctor Unassigned, No [facility] [place] TREATMENT PLAN Name Medical Branch CARDIAC REHAB SESSION 2022-07-16 05:00:00 Doctor Unassigned, No [facility] REPORT Name Medical Branch XR CHEST 2 VW 2022-07-05 20:49:00 [facility] POCT URINALYSIS 2022-02-15 21:18:00 [facility] XR WRIST 3+ VW LEFT 2021-03-28 02:11[facility] 2021-03-28 02:11:00 Ferdinand Gomez [facility] Plan of Care Planned Activity Planned Date Details Comments Source Future Scheduled 2023-01-11 Scre[facility] Test 16:37:26 malignant neoplasm of colon (procedure) [code = 938341301] Future Scheduled 2023-01-11 Screening for [facility] Test 16:37:26 malignant neoplasm of colon (procedure) [code = 991692007] Future Scheduled 2023-01-11 Screening for [facility] Test 16:37:26 malignant neoplasm of colon (procedure) [code = 632502467] Future Scheduled 2023-01-11 Hepatitis C screening [facility] Test 16:37:26 (procedure) [code = 797372306] Future Scheduled 2023-01-11 SHINGLES VACCINES (1 Met [facility] Test 16:37:26 of 2) [code = SHINGLES VACCINES (1 of 2)] Future Scheduled 2023-01-11 RSV VACCINES > 60 YR Met [facility] Test 16:37:26 (1 - 1-dose 60+ series) [code = RSV VACCINES > 60 YR (1 - 1-dose 60+ series)] Future Scheduled 2023-01-11 COVID-19 VACCINE (4 - [facility] Test 16:37:26 season) [code = COVID-19 VACCINE (4 - season)] Future Scheduled 2023-01-11 Screening for [facility] Test 16:37:26 malignant neoplasm of colon (procedure) [code = 018182358] Future Scheduled 2023-01-11 Screening for [facility] Test 16:37:26 malignant neoplasm of colon (procedure) [code = 848865574] Future Scheduled 2022-10-12 Scre[facility] for [facility] Test 17:53:03 malignant neoplasm of colon (procedure) [code = 241003994] Future Scheduled 2022-10-12 Screening for [facility] Test 17:53:03 malignant neoplasm of colon (procedure) [code = 710765988] Future Scheduled 2022-10-12 Scre[facility] Test 17:53:03 malignant neoplasm of colon (procedure) [code = 195445602] Future Scheduled 2022-10-12 65+ [facility]CCAL [facility] 17:53:03 VACCINE (1 - PCV) [code = 65+ PNEUMOCOCCAL VACCINE (1 - PCV)] Future Scheduled 2022-10-12 Hepatitis C screening [facility] Test 17:53:03 (procedure) [code = 412938040] Future Scheduled 2022-10-12 SHINGLES VACCINES (1 Met [facility] Test 17:53:03 of 2) [code = SHINGLES VACCINES (1 of 2)] Future Scheduled 2022-10-12 COVID-19 VACCINE (2 - Me [facility] Test 17:53:03 Pfizer series) [code = COVID-19 VACCINE (2 - Pfizer series)] Future Scheduled 2022-10-12 INFLUENZA VACCINE Method [facility] Test 17:53:03 [code = INFLUENZA VACCINE] Future Scheduled 2022-10-12 Scre[facility] Test 17:53:03 malignant neoplasm of colon (procedure) [code = 382799124] Future Scheduled 2022-10-12 Scre[facility] for [facility] Test 17:53:03 malignant neoplasm of colon (procedure) [code = 253347473] Future Scheduled 2022-03-12 SHINGLES VACCINES (1 Met [facility] Test 11:51:08 of 2) [code = SHINGLES VACCINES (1 of 2)] Future Scheduled 2022-03-12 COVID-19 VACCINE (2 - Me [facility] Test 11:51:08 Pfizer series) [code = COVID-19 VACCINE (2 - Pfizer series)] Future Scheduled 2022-03-12 INFLUENZA VACCINE [facility] Test 11:51:08 [code = INFLUENZA VACCINE] Future Scheduled 2022-03-12 65+ [facility] 11:[facility]:08 VACCINE (1 - PCV) [code = 65+ PNEUMOCOCCAL VACCINE (1 - PCV)] Future Scheduled 2022-03-12 Hepatitis C screening [facility] Test 11:51:08 (procedure) [code = 758491847] Future Scheduled 2022-03-12 COLONOSCOPY SCREENING [facility] Test 11:51:08 [code = COLONOSCOPY SCREENING] Future Scheduled 2022-01-29 HEPATITIS B VACCINES Met [facility] Test 18:20:37 (1 of 3 - 3-dose series) [code = HEPATITIS B VACCINES (1 of 3 - 3-dose series)] Future Scheduled 2022-01-29 65+ [facility]AL [facility] 18:20:37 VACCINE (1 - PCV) [code = 65+ PNEUMOCOCCAL VACCINE (1 - PCV)] Future Scheduled 2022-01-29 Hepatitis C screening [facility] Test 18:20:37 (procedure) [code = 482836599] Future Scheduled 2022-01-29 [facility] 18:20:37 [code = COLONOSCOPY SCREENING] Future Scheduled 2022-01-29 SHINGLES VACCINES (1 Met [facility] Test 18:20:37 of 2) [code = SHINGLES VACCINES (1 of 2)] Future Scheduled 2022-01-29 COVID-19 VACCINE (2 - [facility] Test 18:20:37 Pfizer series) [code = COVID-19 VACCINE (2 - Pfizer series)] Future Scheduled 2022-01-29 INFLUENZA VACCINE [facility] Test 18:20:37 [code = INFLUENZA VACCINE] Encounters Start End Encounter Admission Attending Care Care Encounter Source Date/Time Date/Time Type Type Clinicians Facility Department ID 2021-04-23 Outpatient navidKarljay [facility] [id number] Common 14:10:02 Reynold [facility] 2023-01-08 2023-01-08 Telephone Mu, 1.2.840.1 [id number] Methodi 00:00:00 00:00:[address] 3.430.2.7 Hospit a .3.717015 l .8 2023-01-08 2023-01-08 Orders Doctor KARUNA 1.2.840.114 [id number] [facility] 00:00:00 00:00:00 Only Unassigned, VICTOR HUGO [id number] ity of [place] [facility] [id number] [place] [phone] [place] [id number] Branch 2023-01-07 2023-01-07 Outpatient R WAQAS [facility] [id number] Univers 10:30:00 11:41:19 DMITRIY katz f [facility] 2023-01-07 2023-01-07 Sheet Writer Rehab, Adc Cardiac [facility] 1.2. 840.114 [id number] Univers 10:30:00 11:41:19 Visit Dmitriy Ashton [id number] [facility] [id number] [phone] Wi dical NAL 060 [employer] 2023-01-07 2023-01-07 Orders Doctor KARUNA 1.2.840.114 [id number] Univers 00:00:00 00:00:00 Only Unassigned, VICTOR HUGO [id number] ity of [place] [facility] 4.2.7.2.686 [place] [phone] [address] 2023-01-05 2023-01-05 Sheet Writer Rehab, [facility] Cardiac [facility] 1.2. 840.114 [id number] [facility] 10:30:00 12:58:34 Visit Dmitriy [place] [id number] [facility] [id number] [phone] Wi dical NAL 060 [employer] 2023-01-05 2023-01-05 Outpatient [facility] [id number] [place] 00:00:00 00:00:00 [address] 2023-01-01 2023-01-01 Office Darby 1.2.840.1 [id number] Methodi 09:00:00 10:23:08 Visit Tremaine Asencio 23987.1.[address] 3.430.2.7 Hospit a .3.610064 l .8 2023-01-01 2023-01-01 Outpatient [facility]ERLY [facility] [id number] [place] 00:00:00 00:00:[address] 2022-12-31 2022-12-31 Sheet Writer Rehab, [facility] Cardiac [facility] 1.2. 840.114 [id number] [facility] 10:30:00 11:49:38 Visit Dmitriy Ashton [id number] ity [facility] [id number] [phone] Wi dical NAL 060 [employer] 2022-12-31 2022-12-31 Orders Doctor BECKMAN 1.2.840.114 [id number] [facility] 00:00:00 00:00:00 Only Unassigned, VICTOR HUGO [id number] ity of [place] [facility] 4.2.7.2.686 [place] [phone] [address] 2022-12-22 2022-12-22 Outpatient R WAQAS [facility] [id number] [facility] 10:30:00 11:21:50 DMITRIY ity o f [facility] 2022-12-22 2022-12-22 Sheet Writer Rehab, [facility] Cardiac [facility] 1.2. 840.114 [id number] Univers 10:30:00 11:21:50 Visit Waqas Dmitriy PIERRE [id number] ity [facility] [place] [phone] Wi dical NAL 0 [employer] 2022-12-17 2022-12-17 Sheet Writer Rehab, [facility] Cardiac [facility] 1.2. 840.114 [id number] [facility] 10:30:00 11:55:43 Visit Waqas Dmitriy PIERRE [id number] it[place] [phone] Wi dical NAL [address] [place] [address] 2022-12-15 2022-12-15 Sheet Writer Rehab, [facility] Cardiac [facility] 1.2. 840.114 [id number] Univers 10:30:00 11:42:53 Visit Waqas Dmitriy PIERRE [id number] ity [facility] [place] [phone] Wi dicok NAL [address] [place] [address] 2022-12-15 2022-12-15 Orders Doctor KARUNA 1.2.840.114 [id number] Univers 00:00:00 00:00:00 Only Unassigned, VICTOR HUGO 350.1.13.10 [facility] 4.2.7.2.[place] [phone] [address] 2022-12-10 2022-12-10 Sheet Writer Rehab, [facility] 1.2. 840.114 [id number] Univers 10:30:00 11:44:58 Visit Waqas Dmitriy PIERRE 350.1.13.10 ity of [facility] [place] [phone] Wi dical NAL 0 [employer] 2022-12-08 2022-12-08 Sheet Writer Rehab, [facility] 1.2. 840.114 [id number] Univers 10:30:00 10:30:00 Visit Dmitriy Ashton 350.1.13.10 ity of [facility] [place] [phone] Wi dicok NAL 0 [employer] 2022-12-03 2022-12-03 Orders Doctor KARUNA 1.2.840.114 [id number] Univers 00:00:00 00:00:00 Only Unassigned, VICTOR HUGO 350.1.13.10 [facility] 4.2.7.2.686 [place] [phone] [address] 2022-12-01 2022-12-01 Sheet Writer Rehab, [facility] 1.2. 840.114 [id number] [facility] 10:30:00 11:41:58 Visit WaqasCarterjuan josetorrey GABBY 350.1.13.10 ity of [facility] [place] [phone] [facility] NAL [address] [place] [address] 2022-11-26 2022-11-26 Outpatient R WAQAS [facility] [id number] Univers 10:30:00 11:37:26 DMITRIY ity o f [facility] 2022-11-26 2022-11-26 Sheet Writer Rehab, [facility] 1.2. 840.114 [id number] Univers 10:30:00 11:37:26 Visit WaqasCarterjuan josetorrey GABBY 350.1.13.10 ity of [facility] 4.[place] [phone] Wi dicok NAL [address] [place] [address] 2022-11-24 2022-11-24 Sheet Writer Rehab, [facility] 1.2. 840.114 [id number] Univers 10:30:00 11:43:20 Visit Dmitriy Ashton GABBY 350.1.13.10 ity of [facility] 4.[place] [phone] Wi dical NAL [address] [place] [address] 2022-11-19 2022-11-19 Sheet Writer Rehab, [facility] 1.2. 840.114 [id number] Univers 10:30:00 11:40:23 Visit Dmitriy Ashton 350.1.13.10 ity of [place] [phone] [facility] NAL 0 [employer] 2022-11-19 2022-11-19 Orders Doctor KARUNA 1.2.840.114 [id number] Univers 00:00:00 00:00:00 Only Unassigned, VICTOR HUGO 350.1.13.10 ity of [place] [facility] 4.2.7.2.686 [place] [phone] [address] 2022-11-12 2022-11-12 Sheet Writer Rehab, [facility] 1.2. 840.114 [id number] Univers 10:30:00 11:44:45 Visit Dmitriy Ashton 350.1.13.10 ity of [place] 4[place] [phone] [facility] NAL [address] [place] [address] 2022-11-10 2022-11-10 Sheet Writer Rehab, [facility] 1.2. 840.114 [id number] Univers 10:30:00 11:46:58 Visit Dmitriy Ashton 350.1.13.10 ity of [place] 4[place] [phone] [facility] NAL [address] [place] [address] 2022-11-05 2022-11-05 Sheet Writer Rehab, [facility] 1.2. 840.114 [id number] Univers 10:30:00 11:35:36 Visit Dmitriy Ashton 350.1.13.10 ity of [place] 4[place] [phone] [facility] NAL [address] [place] [address] 2022-11-05 2022-11-05 Orders Doctor BECKMAN 1.2.840.114 [id number] Univers 00:00:00 00:00:00 Only Unassigned, VICTOR HUGO 350.1.13.10 ity of [place] [facility] 4.2.7.2.686 [place] [phone] [address] 2022-11-03 2022-11-03 Sheet Writer Rehab, [facility] 1.2. 840.114 [id number] Univers 10:30:00 11:56:45 Visit Dmitriy Ashton 350.1.13.10 ity of [place] 4[place].2.[place] [phone] Wi dicok NAL 0 [employer] 2022-10-29 2022-10-29 Sheet Writer Rehab, [facility] 1.2. 840.114 [id number] Univers 10:30:00 11:53:53 Visit Dmitriy Ashton 350.1.13.10 ity of [facility] 4.2.[place].2.[place] [phone] [facility] NAL [address] [place] [address] 2022-10-29 2022-10-29 Orders Doctor KARUNA 1.2.840.114 [id number] Univers 00:00:00 00:00:00 Only Unassigned, VICTOR HUGO 350.1.13.10 ity of [place] [facility] 4.2.7.2.686 [place] [phone] [address] 2022-10-27 2022-10-27 Sheet Writer Rehab, [facility] 1.2. 840.114 [id number] [facility] 10:30:00 11:47:36 Visit Dmitriy Ashton 350.1.13.10 ity of [facility] 4.2.7.2.[place] [phone] [facility] NAL [address] [place] [address] 2022-10-22 2022-10-22 [facility] [id number] Univers 10:30:00 12:01:44 DMITRIY ity o f [facility] 2022-10-22 2022-10-22 Sheet Writer Rehab, [facility] 1.2. 840.114 [id number] [facility] 10:30:00 12:01:44 Visit Dmitriy Ashton GABBY 350.1.13.10 ity of [facility] 4.2.7.2.[place] [phone] Wi dicok [address] 2022-10-21 2022-10-21 Orders Doctor KARUNA 1.2.840.114 [id number] Univers 00:00:00 00:00:00 Only Unassigned, VICTOR HUGO 350.1.13.10 ity of [place] [facility] 4.2.7.2.686 [place] [phone] [address] 2022-10-20 2022-10-20 Sheet Writer Rehab, [facility] 1.2. 840.114 [id number] Univers 10:30:00 12:02:16 Visit Waqas Chantorrey GABBY 350.1.13.10 ity of [facility] 4.2.7.2.[place] [phone] Wi dical NAL [address] [place] [address] 2022-10-01 2022-10-01 Sheet Writer Rehab, [facility] 1.2. 840.114 [id number] [facility] 10:30:00 11:50:26 Visit Chan Ashtontorrey GABBY 350.1.13.10 ity of [facility] 4.2.7.2.[place] [phone] Wi dicok NAL [address] [place] [address] 2022-10-01 2022-10-01 Orders Doctor KARUNA 1.2.840.114 [id number] Univers 00:00:00 00:00:00 Only Unassigned, VICTOR HUGO 350.1.13.10 ity of [place] [facility] 4.2.7.2.686 [place] [phone] [address] 2022-09-24 2022-09-24 Sheet Writer Rehab, [facility] 1.2. 840.114 [id number] Univers 10:30:00 11:58:23 Visit WaqasDmitriy GABBY 350.1.13.10 ity of [facility] 4.2.7.2.[place] [phone] Wi dic[address] 2022-09-24 2022-09-24 Outpatient R WAQAS [facility] [id number] Univers 10:30:00 10:30:00 DMITRIY pierce o f [facility] 2022-09-22 2022-09-22 Sheet Writer Rehab, [facility] 1.2. 840.114 [id number] [facility] 10:30:00 11:47:28 Visit Dmitriy Ashton 350.1.13.10 ity of [facility] 4.2.7.2.[place] [phone] Wi dical NAL 0 [employer] 2022-09-17 2022-09-17 Sheet Writer Rehab, [facility] 1.2. 840.114 [id number] [facility] 10:30:00 11:41:22 Visit Dmitriy Ashton 350.1.13.10 ity of [place] 4[place]2.7.2.[place] [phone] Wi dic[address] 2022-09-17 2022-09-17 Orders Doctor KARUNA 1.2.840.114 [id number] [facility] 00:00:00 00:00:00 Only Unassigned, VICTOR HUGO 350.1.13.10 ity of [place] [facility] 4.2.7.2.686 [place] [phone] [address] 2022-09-15 2022-09-15 Sheet Writer Rehab, [facility] 1.2. 840.114 [id number] Univers 10:00:00 13:05:20 Visit Dmitriy Ashton 350.1.13.10 ity of [place] 4.2.7.2.[place] [phone] Wi dicok NAL [address] [place] [address] 2022-09-10 2022-09-10 Sheet Writer Rehab, [facility] 1.2. 840.114 [id number] [facility] 10:30:00 11:50:56 Visit Dmitriy Ashton 350.1.13.10 ity of [place] 4.2.7.2.[place] [phone] Wi dical NAL [address] [place] [address] 2022-09-08 2022-09-08 Sheet Writer Rehab, [facility] 1.2. 840.114 [id number] [facility] 10:30:00 11:51:05 Visit Dmitriy Ashton 350.1.13.10 ity of [place] 4.2.7.2.[place] [phone] Wi dical NAL 0 [employer] 2022-09-08 2022-09-08 Orders Doctor KARUNA 1.2.840.114 [id number] Univers 00:00:00 00:00:00 Only Unassigned, VICTOR HUGO 350.1.13.10 ity of [place] [facility] 4.2.7.2.686 [place] [phone] [address] 2022-09-03 2022-09-03 Sheet Writer Rehab, [facility] 1.2. 840.114 [id number] Univers 10:30:00 11:27:13 Visit Dmitriy Ashton 350.1.13.10 ity of [facility] 4.2.7.2.[place] [phone] Wi dical NAL 0 [employer] 2022-09-02 2022-09-02 Outpatient GUU_SHENG_Y [place] [address] 731-202 [facility] 00:00:00 00:[place] [address] [facility] 2022-09-01 2022-09-01 Sheet Writer Rehab, [facility] 1.2. 840.114 [id number] Univers 10:30:00 12:10:51 Visit Dmitriy Ashton 350.1.13.10 ity of [facility] 4.2.7.2.[place] [phone] Wi dical NAL 0 [employer] 2022-08-28 2022-08-28 Orders Doctor BECKMAN 1.2.840.114 [id number] Univers 00:00:00 00:00:00 Only Unassigned, VICTOR HUGO 350.1.13.10 ity of [place] [facility] 4.2.7.2.686 [place] [phone] [address] 2022-08-13 2022-08-13 Sheet Writer Rehab, [facility] 1.2. 840.114 [id number] Univers 10:30:00 11:13:12 Visit Dmitriy Ashton 350.1.13.10 ity of [facility] 4.2.7.2.[place] [phone] Wi dical NAL 0 [employer] 2022-08-13 2022-08-13 Outpatient R WAQAS [facility] [id number] Univers 10:30:00 10:30:00 DMITRIY pierce o f [facility] 2022-08-11 2022-08-11 Sheet Writer Rehab, [facility] 1.2. 840.114 [id number] [facility] 10:30:00 11:27:54 Visit Waqas Dmitriy PIERRE 350.1.13.10 ity of [place] 4[place]2.7.2.[place] [phone] Wi dicok NAL [address] [place] [address] 2022-08-11 2022-08-11 Orders Doctor KARUNA 1.2.840.114 [id number] [facility] 00:00:00 00:00:00 Only Unassigned, VICTOR HUGO 350.1.13.10 ity of [place] [facility] 4.2.7.2.686 [place] [phone] [address] 2022-08-06 2022-08-06 Sheet Writer Rehab, [facility] 1.2. 840.114 [id number] [facility] 10:30:00 11:16:26 Visit Waqas Dmitriy PIERRE 350.1.13.10 ity of [place] 4[place]2.7.2.[place] [phone] Wi dicok NAL [address] [place] [address] 2022-07-30 2022-07-30 Sheet Writer Rehab, [facility] Card[facility] 1.2. 840.114 [id number] [facility] 10:30:00 11:02:55 Visit Waqas Dmitriy PIERRE 350.1.13.10 ity of [place] 4.2.7.2.[place] [phone] [facility] NAL [address] [place] [address] 2022-07-30 2022-07-30 Orders Doctor BECKMAN 1.2.840.114 [id number] [facility] 00:00:00 00:00:00 Only Unassigned, VICTOR HUGO 350.1.13.10 ity of [place] [facility] 4.2.7.2.686 [place] [phone] [address] 2022-07-28 2022-07-28 Sheet Writer Rehab, [facility] 1.2. 840.114 [id number] Univers 10:30:00 11:09:09 Visit Dmitriy Ashton 350.1.13.10 ity of [facility] 4.2.7.2.[place] [phone] Wi dical NAL 060 [employer] 2022-07-21 2022-07-21 Sheet Writer Rehab, [facility] 1.2. 840.114 [id number] Univers 10:30:00 11:46:49 Visit Dmitriy Ashton ANALITRUMAN 350.1.13.10 ity of [facility] 4.2.7.2.[place] [phone] Wi dichelen NAL 060 [employer] 2022-07-21 2022-07-21 Outpatient R WAQAS [facility] [id number] [facility] 10:30:00 10:30:00 DMITRIY pierce o f [facility] 2022-07-16 2022-07-16 Sheet Writer Rehab, [facility] 1.2. 840.114 [id number] Univers 10:30:00 11:47:56 Visit Dmitriy Ashton GABBY 350.1.13.10 ity of [facility] 4.2.7.2.[place] [phone] Wi dicok NAL 060 [employer] 2022-07-16 2022-07-16 Orders Doctor KARUNA 1.2.840.114 [id number] Univers 00:00:00 00:00:00 Only Unassigned, VICTOR HUGO 350.1.13.10 ity of [place] [facility] 4.2.7.2.686 [place] [phone] [address] 2022-07-08 2022-07-08 Sheet Writer Rehab, [facility] 1.2. 840.114 [id number] Univers 15:30:00 17:32:37 Visit Dmitriy Ashton GABBY 350.1.13.10 ity of [facility] 4.2.[place].2.[place] [phone] Wi dical NAL 060 [employer] 2022-07-052022-07-05 Outpatient R ENMANUEL [facility] [id number] Univers 15:32:21 23:59:00 SHERLYN [facility] 2022-07-05 2022-07-05 [facility] 1.2.840.114 [id number] Univers 15:32:21 23:59:00 Encounter Sherlyn [facility] 350.1.13.10 ity of [place] 4.2.7.2.686 [place] LISA?BLEA [phone] Wi griselda BURTON 808 [facility] OFFICE [facility] 2022-07-05 2022-07-05 Urgent Sherlyn Singer [facility] 1.2.840.114 1 [id number] Univers 15:00:00 15:54:33 Care Unknown, Attending HEALTH 350.1.13.10 ity of [place] 4.2.7.2.686 [place] LISA?BLEA [phone] [facility] 370 [facility] 2022-07-05 2022-07-05 Outpatient R UNKNOWN, [facility] [id number] Univers 15:00:00 15:00:00 ATTENDING [facility] 2022-07-05 2022-07-05 Outpatient R UNKNOWN, [facility] [id number] Univers 14:40:00 14:40:00 ATTENDING [facility] 2022-06-29 2022-07-03 Inpatient E SISTA, SRI [facility] 7500 [facility] 17:37:00 15:20:00 2022-02-15 2022-02-15 Urgent Quin Deluna [facility] 1..840.114 9 [id number] Univers 15:00:00 15:20:00 Care Unknown, Attending HEALTH 350.1.13.10 ity of [place] 4.2.7.2.686 [place] LISA?BLEA [phone] Wi griselda [facility] 370 [facility] 2022-02-15 2022-02-15 Outpatient R MIKIE, [facility] [id number] Univers 15:00:00 15:00:00 [facility] 2022-01-26 2022-01-26 Telephone [facility] 1.2.526.301 [id number] Univers 00:00:00 00:00:00 Liz [facility] 350.1.13.10 ity of [facility] 4.2.7.2.686 [place] LISA?BLEA [phone] [address] 2022-01-23 2022-01-23 [facility] [id number] Univers 12:40:00 13:04:46 JORDAN escobar [facility] 2022-01-23 2022-01-23 Urgent Hemanth [facility] 1.2.840. 114 [id number] Univers 12:40:00 13:00:00 Care Unknown, Attending HEALTH 350.1.13.10 ity of [facility] 4.2.7.2.686 [place] LISA?BLEA [phone] [address] 2022-01-19 2022-01-19 Out[facility] [id number] Univers 14:55:00 15:29:26 LIZ ity o [facility] 2021-09-18 2021-09-18 Telephone KARUNA Jara 1.2.904.115 [id number] Univers 00:00:00 00:00:00 Lolly GAY 350.1.13.10 i ty of [facility] 4.2.7.2.686 [place] [phone] [address] 2021-09-16 2021-09-16 Out[facility] [id number] Univers 15:00:00 15:15:07 LIZLARON escobar [facility] 2021-09-16 2021-09-16 Laboratory Only, Ang Db Test [facility] 1.2.8 40.114 [id number] Univers 15:00:00 15:15:00 Only Liz Wong [facility] 350.1.13.10 ity of [facility] 4.2.7.2.686 [place] LISA?BLEA [phone] [address] 2021-09-04 2021-09-04 Nurse Therapy, Adc Covid Infusion [facility] 1.2.840.114 [id number] Univers 16:00:00 17:00:00 Visit Bjorn Michael Rc [facility] 350.1.13.10 ity of [place]ICAL [id number] [place] [address] [place] 2021-09-04 2021-09-04 Outpatient R BJORN [facility] [id number] Univers 16:00:00 16:00:00 MICHAEL francine [facility] 2021-09-02 2021-09-02 Outpatient R ZHANG [facility] [id number] Univers 09:00:00 09:25:28 MARISELA [facility] 2021-09-02 2021-09-02 Laboratory Only, Ang Db Test [facility] 1.2.8 40.114 [id number] Univers 09:00:00 09:15:00 Only Zhang [facility] 350.1.13.10 ity of [place] 4.2.7.2.686 [place] LISA?BLEA [phone] [address] MEDICAL OFFICE BUILDING 2021-09-02 2021-09-02 Letter KARUNA Kaye 1.2.840.114 [id number] Univers 00:00:00 00:00:00 (Out) Ni GAY 350.1.13.10 it y of [facility] 4.2.7.2.686 [place] [phone] [address] 2021-03-30 2021-03-30 Travel 1.2.840.1 1.2.711.481 [id number] Methodi 00:00:00 00:00:[address] 3.430.2.7 0.2.7.3.698 Ho spita .3.924913 084.8 l .8 2021-03-27 2021-03-27 Emergency Ferdinand Gomez 1.2.840.1 [id number] 001 [id number] Methodi 19:32:00 22:12:00 Issac Morrison [address]. [address] 3.430.2.7 Hospit a .3.051327 l .8 2021-03-27 2021-03-27 Travel 1.2.840.1 1.2.949.264 [id number] Methodi 00:00:00 00:00:[address] 3.430.2.7 0.2.7.3.698 Ho spita .3.206090 084.8 l .8 2020-11-18 2020-11-18 Outpatient [facility] [id number] 786 [place] 00:00:00 00:00:00 TREMAINE [address] 2019-11-20 2019-11-20 Outpatient [facility] [id number] 928 [place] 00:00:00 00:00:00 TREMAINE [address] Results Test Description Test Time Test Comments Results Result Comments Source ECG 12 lead 2023-01-01 15:50:22 Test Item Value Reference Range Interpretation Comme nts Ventricular rate (test code = 253) 50 Atrial rate (test code = 255) 50 WI interval (test code = 266) 228 QRSD interval (test code = 260) 104 QT interval (test code = 264) 414 QTC interval (test code = 265) 377 P axis 1 (test code = 267) 40 QRS axis 1 (test code = 268) 6 T wave axis (test code = 270) 95 EKG impression (test code = 273) Sinus bradycardia with 1st degree AV block-Left ventricular hypertrophy with repolarization abnormality ( R in aVL )-Abnormal ECG-In automated comparison with ECG of 18-NOV-2020 13:04,-Criteria for Septal infarct are no longer present-T wave inversion no longer evident in Inferior leads-T wave inversion now evident in Lateral leads- [facility] [id number] 21:21:00 Test Item Value Reference Range Interpretation Comments POCT U SP GRAV (test 1.015 mg/dl 1.005-1.025 code = 6625) POCT PH U (test code = 5 mg/dl 5-8 1604) POCT U LEUK EST (test ++ Negative - code = 7723) Negative POCT U NIT (test code positive Negative - = 3262) Negative POCT U PROT (test code Negative - = 3259) Negative POCT U GLU (test code normal Negative - = 3256) Negative POCT U KETONE (test ++med Negative - code = 3258) Negative POCT U UROBILI (test normal 0.2-1 code = 3260) POCT U BILI (test code negative Negative - = 3261) Negative POCT U BLD (test code about 50 Negative - = 3257) Negative POCT U COLOR (test orange/yellow code = 3266) POCT U APPEAR (test cloudy code = 3267) JUAN (test code = JUAN) accurate development and interpretation of all internal controls Lab Interpretation Abnormal (test code = 20729-4) [facility] [id number] 13:51:00 Test Item Value Reference Range Interpretation Comments SCAN RESULT (test code = 7113040) Result comments: STREPTOCOCCUS SPECIES DETECTED (Non-Strep Pneumo; Non-Group A or Group B) First line therapy: Vancomycin De-escalate based on susceptibilities Other organisms and resistance markers not contained in this PCR panel cannot be excluded and follow-up of traditional culture results is required. This sample was tested at the [facility] Clinical Microbiology Laboratory using the [employer] Blood Culture ID Panel. This test is FDA cleared for in vitro diagnostic use and has been verified and approved by the [facility] Clinical Microbiology laboratory for clinical use. Reference Range: Not DetectedBLOOD [id number] 13:19:00 Test Item Value Reference Range Interpretation [...] is required. This sample wastested at the [facility] Clinical Microbiology Laboratory using the [employer] Blood Culture ID Panel. This test is FDA cleared for in vitro diagnostic use and has been verified and approved by the [facility] Clinical Microbiology laboratory for clinical use. Reference Range: Not DetectedBLOOD [id number] 19:00:00 Test Item Value Reference Range Interpretation Comments CULTURE (BEAKER) (test No growth in 5 days code = 1095) BLOOD [id number] 19:00:00 Test Item Value Reference Range Interpretation Comments CULTURE (BEAKER) (test No growth in 5 days code = 1095) CORTISOL,60 [id number] 15:41:00 Test Item Value Reference Range Interpretation [...] cortisol level 60 minutes after cosyntropin administration.CORTISOL,30 [id number] 15:40:00 Test Item Value Reference Range Interpretation [...] study by Caroline et al (JUAN J 2000,283(8):7472-45), the ACTH Stimulation Test provides important prognostic [...] serum cortisol level 60 minutes after cosyntropin administration.CORTISOL,[id number] 11:51:00 Test Item Value Reference Range Interpretation [...] cortisol level 60 minutes after cosyntropin administration.URINE [id number] 10:21:00 Test Item Value Reference Range Interpretation Comments CULTURE (BEAKER) (test code = 1095) No growth RAD, CHEST, 1 VIEW, NON [id number] 08:44:00Reason for exam:->pnaShould this be performed at [...] MDReport Verified Date/Time: 12/09/2016 08:44:43 Reading Location: [facility] Diagnostic Imaging Reading Room - [place] [id number] MAGNESIUM 2016-12-09 08:08:00 Test Item Value Reference Range Interpretation Comments MAGNESIUM (BEAKER) (test code = 1.9 mg/dL 1.6-2.6 627) BASIC METABOLIC [id number] 08:08:00 Test Item Value Reference Range Interpretation [...] S NOT APPLICABLE FOR DIALYSIS PATIEN STEVE. [id number] 06:44:00 Test Item Value Reference Range Interpretation Comments CORTISOL, TOTAL (BEAKER) (test code 6.2 ug/dL 3.7-19.4 = 2755) CALCIUM, [id number] 06:16:00 Test Item Value Reference Range Interpretation Comments CALCIUM IONIZED (BEAKER) (test 0.93 mmol/L 1.12-1.27 L code = 698) PH, BLOOD (BEAKER) (test code = 7.50 1810) EEG AWAKE AND [id number] 17:34:00Reason for exam:->SyncopeDATE OF EE12-08-2016 DATE OF REPORT: 12-08-2016 ACC: [id number] Start time: 12:49 Stoptime: 13:10 ICD-10: R55 CPT Code: 54945 HISTORY: recurrent syncopal episodes MEDICATIONS THAT COULD AFFECT EEG: TECHNICAL SUMMARY: This is a digital EEG recorded with 32 input channels on a [email or web address] system and then reviewed with bipolar and [...] PLT(BEAKER) (test code = Present 2156) CALCIUM, [id number] 07:03:00 Test Item Value Reference Range Interpretation Comments CALCIUM IONIZED (BEAKER) (test 1.14 mmol/L 1.12-1.27 code = 698) PH, BLOOD (BEAKER) (test code = 7.37 1810) [id number] 07:01:00 Test Item Value Reference Range Interpretation Comments MAGNESIUM (BEAKER) (test code = 2.0 mg/dL 1.6-2.6 627) BASIC METABOLIC [id number] 07:01:00 Test Item Value Reference Range Interpretation [...] PATIEN TS. CBC W/PLT COUNT & AUTO [id number] 06:30:00 Test Item Value Reference Range Interpretation [...] (BEAKER) (test code = 2801) URINALYSIS W/ [id number] 17:47:00 Test Item Value Reference Range Interpretation [...] 517) SOURCE(BEAKER) (test code = Urine, Voided 2795) CT, CAROTID, [id number] 16:48:00FINAL REPORT CTA head and neck with [...] left and mild to moderate right mid TRUCK LOADER stenoses and mild left intradural vertebral artery stenosis. There is mild carotid siphon atherosclerosis. Otherwise no high grade proximal [place] stenosis or major branch occlusion [...] left and mild to moderate right mid TRUCK LOADER stenoses, and other lesser intracranial atherosclerotic changes as discussed. 4. Nonspecific bilateral ground glasslung opacities, which could reflect edema or atypical pneumonitis. Advise correlation with chest imaging. Signed: Mahad Moulton MDRort Verified Date/Time: 12/07/2016 16:48:08 Reading Location:[address] Neuro Reading [place] [id number] 16:48:00FINAL REPORT CTA head and neck with [...] left and mild to moderate right mid TRUCK LOADER stenoses and mild left intradural vertebral artery stenosis. There is mild carotid siphon atherosclerosis. Otherwise no high grade proximal [place] stenosis or major branch occlusion [...] left and mild to moderate right mid TRUCK LOADER stenoses, and other lesser intracranial atherosclerotic changes as discussed. 4. Nonspecific bilateral ground glasslung opacities, which could reflect edema or atypical pneumonitis. Advise correlation with chest imaging. Signed: Mahad Moulton [facility], [place] Verified Date/Time: 12/07/2016 16:48:08 Reading Location:[address] Neuro Reading Room TINE KINASE (CK), TOTAL AND [id number] 14:16:00 Test Item Value Reference Range Interpretation Comments CREATINE KINASE TOTAL (BEAKER) 85 U/L 29-200 (test code = 380) CREATINE KINASE-MB (BEAKER) (test 3.5 ng/mL 0.0-6.6 code = 750) CREATINE KINASE-MB INDEX (BEAKER) 4.1 % (test code = 395) CK-MB Reference Range:<6.7 Normal6.7-10.0 Borderline>10.0 AbnormalTROPONIN [id number] 14:16:00 Test Item Value Reference Range Interpretation [...] failure, acidosis, acute neurological disease, and persistent tachyarrhythmia.[id number] 14:09:00 Test Item Value Reference Range Interpretation Comments MAGNESIUM (BEAKER) (test code = 2.1 mg/dL 1.6-2.6 627) BASIC METABOLIC [id number] 14:09:00 Test Item Value Reference Range Interpretation [...] S NOT APPLICABLE FOR DIALYSIS PATIEN TS. [id number] 13:58:00 Test Item Value Reference Range Interpretation [...] mechanical heart valves.CBC W/PLT COUNT & AUTO [id number] 13:52:00 Test Item Value Reference Range Interpretation [...] 417) IMMATURE GRANULOCYTES-RELATIVE 0 % 0-1 PERCENT (CIARA) (test code = 2801) POCT-GLUCOSE [id number] 13:46:00 Test Item Value Reference Range Interpretation Comments POC-GLUCOSE METER 136 mg/dL 70-110 H TESTED AT [facility] 6720 (CIARA) (test code = [place] 1538) [address] CT, BRAIN/STROKE [id number] 13:28:00Reason for exam:->loss of consciousnessFINAL REPORT CT [...] neurology housestaff at 1:26 PM Signed: Mahad Moulton Verified Date/Time: 12/07/2016 13:28:57 Reading Location: [address] Neuro Reading Room
--- NOTE | 2023-01-16 21:02 | RAD REPORT ---
EXAM DESCRIPTION: CT - CTHCSPWOC - 01/16/2023 7:51 pm CLINICAL HISTORY: Trauma, head and neck injury. fall COMPARISON: Head C Spine Mpr Wo Con dated 06/08/2017; Head C Spine Mpr Wo Con dated 04/16/2017 TECHNIQUE: Axial thin cut noncontrast CT images of the head were obtained. Axial thin cut noncontrast CT images of the cervical spine were obtained. Multiplanar reformatted images were generated and reviewed. All CT scans are performed using dose optimization technique as appropriate and may include automated exposure control or mA/KV adjustment according to patient size. FINDINGS: CT HEAD WITHOUT CONTRAST: No acute hemorrhage, hydrocephalus or extra-axial collection is identified. Moderate diffuse parenchy mal volume loss. Patchy periventricular areas of hypoattenuation, stable, most suggestive of chronic small vessel ischemic changes. No areas of brain edema or midline shift. The paranasal sinuses and mastoids are clear.The calvarium is intact. CT CERVICAL SPINE WITHOUT CONTRAST: No fracture or subluxation.Mild degenerative changes.No prevertebral soft tissues swelling is identif ied. IMPRESSION: No acute traumatic intracranial or cervical spine findings.
--- NOTE | 2023-01-16 21:11 | ER ---
Nurse's Notes [facility] Name: Eleuterio Baird Age: 72 yrs Sex: Male : 1950 Arrival Date: 01/16/2023 Time: 19:10 Bed 3 Private MD: Diagnosis: Fall on same level, unspecified;Essential (primary) hypertension Presentation: 01/16 19:37 Chief complaint: Patient's son or daughter states: patient was outside with daughter, ap3 when he fell backward hitting the back of his head on the concrete at approx 1700 today. Daughter and patient both report that the patient did not lose LOC. Patient is currently A/O X's 4 and interacting appropriately during triage. Coronavirus screen: At this time, the client does not indicate any symptoms associated with coronavirus-19. Ebola Screen: No symptoms or risks identified at this time. Initial Sepsis Screen: Does the patient meet any 2 criteria? No. Patient's initial sepsis screen is negative. Does the patient have a suspected source of infection? No. Patient's initial sepsis screen is negative. Risk Assessment: Do you want to hurt yourself or someone else? Patient reports no desire to harm self or others. Onset of symptoms was January 16, 2023 at 17:00. 19:37 Method Of Arrival: Wheelchair ap3 19:37 Acuity: SALOME 2 ap3 Triage Assessment: 19:39 General: Appears in no apparent distress. Behavior is calm, cooperative, appropriate ap3 for age. Pain: Complains of pain in left parietal area and right parietal area Pain began gradually, 3 hours ago. Neuro: Level of Consciousness is awake, alert, obeys commands, Oriented to person, place, time, situation. Cardiovascular: Patient's skin is warm and dry. Respiratory: Airway is patent Respiratory effort is even, unlabored, Respiratory pattern is regular, symmetrical. Historical: - Allergies: 19:36 Amantadine; ap3 19:36 Flagyl; ap3 - PMHx: 19:36 HTN; [place]; MS; Seizure; ap3 - Social history:: Smoking status: Patient denies any tobacco usage or history of. Screenin:40 Abuse screen: Denies threats or abuse. Nutritional screening: No deficits noted. ap3 Tuberculosis screening: No symptoms or risk factors identified. Assessment: 22:34 General: Appears in no apparent distress. Behavior is calm, cooperative, appropriate la4 for age. Pain: Denies pain. Cardiovascular: No deficits noted. Respiratory: No deficits noted. GI: No deficits noted. Vital Signs: 19:37 BP 149 / 70; Pulse 79; Resp 17; Temp 98.7; Pulse Ox 97% ; Weight 79.83 kg; Height 5 ft. ap3 7 in. ; 22:35 BP 132 / 68; Pulse 77; Resp 18; Pulse Ox 99% on R/A; Pain 0/10; la4 19:37 Body Mass Index 27.57 (79.83 kg, 170.18 cm) ap3 22:35 Pain Scale: Adult la4 Vitals: 22:35 Cardiac Rhythm Assessment Regular Sinus rhythm. la4 [place] Coma Score: 22:35 Eye Response: spontaneous(4). Motor Response: obeys commands(6). Verbal Response: la4 oriented(5). Total: 15. ED Course: 19:19 Patient arrived in ED. 19:25 Wallace Rios DO is Attending Physician. ms3 19:37 Calos Reilly, RN is Primary Nurse. bp 19:37 Inserted saline lock: 22 gauge in left antecubital area, using aseptic technique. ap3 19:39 Triage completed. ap3 19:40 Arm band placed on left wrist. ap3 19:40 Patient has correct armband on for positive identification. Bed in low position. Call ap3 light in reach. Side rails up X2. Adult w/ patient. obiee architect on. Pulse ox on. NIBP on. 19:51 CT Head C Spine In Process Unspecified. EDMS Administered Medications: No medications were administered Outcome: 21:10 Discharge ordered by . ms3 22:36 Patient left the ED. la4 Signatures: Dispatcher [employer] EDMS Kia Jimenez RN RN Calos Reilly, RN RN Sherlyn French RN RN [facility] Wallace Rios DO DO ms3 Blanca Iverson RN RN la4
--- NOTE | 2023-01-16 21:11 | EDPHYS ---
Physician Documentation [facility] Name: Eleuterio Baird Age: 72 yrs Sex: Male : 1950 Arrival Date: 01/16/2023 Time: 19:10 Bed 3 Private MD: ED Physician Wallace Rios HPI: 01/16 21:10 This 72 yrs old Male presents to ER via Wheelchair with complaints of Fall Injury, Head ms3 Injury-Adult. 21:10 72-year-old male with past medical history of hypertension, myocardial infarction, ms3 multiple sclerosis, seizures presents to the emergency department after falling. Patient went to get his trash can and got off his scooter, grabbed a trash can and lost his balance and fell on cement striking the back of his head. Patient denies pain. Patient denies nausea, vomiting. Patient endorses loss of consciousness. Patient currently is taking Plavix and aspirin. Historical: - Allergies: 19:36 Amantadine; ap3 19:36 Flagyl; ap3 - PMHx: 19:36 HTN; [place]; MS; Seizure; ap3 - Social history:: Smoking status: Patient denies any tobacco usage or history of. ROS: 21:10 Constitutional: Negative for fever, and chills. Neck: Negative for injury, pain, and ms3 swelling, Cardiovascular: Negative for chest pain, and palpitations. Respiratory: Negative for shortness of breath, cough, wheezing, and pleuritic chest pain, Abdomen/GI: Negative for abdominal pain, nausea, vomiting, diarrhea, and constipation, MS/Extremity: Negative for injury and deformity, Skin: Negative for injury, rash, and discoloration, 21:10 All other systems are negative, Exam: 21:10 Constitutional: This is a well developed, well nourished patient who is awake, alert, ms3 and in no acute distress. Head/Face: Normocephalic, atraumatic. Neck: Trachea midline, no cervical lymphadenopathy. Supple, full range of motion without nuchal rigidity, or vertebral point tenderness. No Meningismus. Chest/axilla: Normal chest wall appearance and motion. Nontender with no deformity. Cardiovascular: Regular rate and rhythm with a normal S1 and S2. No gallops, murmurs, or rubs. Normal PMI, no JVD. No pulse deficits. Respiratory: Lungs have equal breath sounds bilaterally, clear to auscultation and percussion. No rales, rhonchi or wheezes noted. No increased work of breathing, no retractions or nasal flaring. Abdomen/GI: Soft, non-tender, with normal bowel sounds. No distension or tympany. No guarding or rebound. No evidence of tenderness throughout. Skin: Warm, dry with normal turgor. Normal color with no rashes, no lesions, and no evidence of cellulitis. 21:10 Neuro: Awake and alert, GCS 15, oriented to person, place, time, and situation. ms3 Cranial nerves II-XII grossly intact. Motor strength 5/5 in all extremities. Sensory grossly intact. Cerebellar exam normal. Normal gait. Vital Signs: 19:37 BP 149 / 70; Pulse 79; Resp 17; Temp 98.7; Pulse Ox 97% ; Weight 79.83 kg; Height 5 ft. ap3 7 in. ; 22:35 BP 132 / 68; Pulse 77; Resp 18; Pulse Ox 99% on R/A; Pain 0/10; la4 19:37 Body Mass Index 27.57 (79.83 kg, 170.18 cm) ap3 22:35 Pain Scale: Adult la4 [place] Coma Score: 22:35 Eye Response: spontaneous(4). Motor Response: obeys commands(6). Verbal Response: la4 oriented(5). Total: 15. MDM: 19:49 Patient medically screened. ms3 21:10 Differential diagnosis: closed head injury, contusion, fracture. Data reviewed: vital ms3 signs, nurses notes, radiologic studies, and as a result, I will discharge patient. Independent interpretation of the following test(s) in the Emergency Department CT Scan: My interpretation is CT head images reviewed by me do not reveal intracranial hemorrhage. Counseling: I had a detailed discussion with the patient and/or guardian regarding the historical points, exam findings, and any diagnostic results supporting the discharge/admit diagnosis, radiology results, the need for outpatient follow up, to return to the emergency department if symptoms worsen or persist or if there are any questions or concerns that arise at home. Special discussion: I discussed with the patient/guardian in detail that at this point there is no indication for admission to the hospital. It is understood, however, that if the symptoms persist or worsen the patient needs to return immediately for re-evaluation. ED course: Discussed CT scans with patient and his . They understand and agree with plan. All questions were answered. Return precautions discussed include worsening symptoms, or any other concerns. On reevaluation patient is alert, in no apparent distress, nontoxic-appearing, speaking full sentences. 01/16 19:23 Order name: CT Head C Spine; Complete Time: 21:07 ms3 Administered Medications: No medications were administered Disposition Summary: 01/16/23 21:10 Discharge Ordered Notes: Location: Home ms3 Condition: Stable ms3 Diagnosis - Fall on same level, unspecified ms3 - Essential (primary) hypertension ms3 Followup: ms3 - With: Private Physician - When: 2 - 3 days - Reason: Re-evaluation by your physician Discharge Instructions: - Discharge Summary Sheet ms3 - Fall Prevention in the Home, Adult ms3 - Hypertension, Adult ms3 - DASH Eating Plan ms3 Forms: - Medication Reconciliation Form ms3 - Thank You Letter ms3 - Antibiotic Education ms3 - Prescription Opioid Use ms3 - Patient Portal Instructions ms3 - Leadership Thank You Letter ms3 Signatures: Dispatcher [employer] Sherlyn Mar, HARPER RN ap3 Wallace Rios DO DO ms3
== END 2023-01-16 22:36 | disposition home or self-care (01) ==
LOC: ER 19:10
DX: S09.90XA Unspecified injury of head, initial encounter (principal); W18.30XA Fall on same level, unspecified, initial encounter; I10 Essential (primary) hypertension; I25.2 Old myocardial infarction; Z88.8 Allergy status to other drugs, medicaments and biological substances
CPT/HCPCS: 70450; 72125; 99284

== ENCOUNTER → 2023-05-19 | Emergency (ER) | payer OTHER, MEDICARE ==
[~2023-05-19] MED LIST: LIDOCAINE 2% W/EPI 1:200,000 MPF 20 ML VIAL IM ONE; NA CHLORIDE 0.9% 500 ML ONE; TDAP (DIPHTH,PERTUSS(ACELL),TET VAC) 0.5 ML VIAL IMVAC ONE
--- NOTE | 2023-05-20 02:08 | EDPHYS ---
Physician Documentation [facility] Name: Eleuterio Baird Age: 72 yrs Sex: Male : 1950 Arrival Date: 05/19/2023 Time: 23:39 Bed 7 Private MD: Maddie Parham C ED Physician Timothy Wong HPI: 05/20 01:13 This 72 yrs old Male presents to ER via Ambulatory with complaints of Fall yaya Injury, Skin Tear(s). 01:13 Details of fall: The patient fell from an upright position, while standing, while yaya walking. Onset: The symptoms/episode began/occurred just prior to arrival. Associated injuries: The patient sustained right arm and left arm, decreased range of motion, laceration. Severity of symptoms: At their worst the symptoms were mild, in the emergency department the symptoms are unchanged. The patient has experienced similar episodes in the past, multiple times. Historical: - Allergies: 05/19 23:51 Amantadine; rv 23:51 Flagyl; rv - PMHx: 23:51 HTN; [place]; MS; Seizure; rv - PSHx: 23:51 None; rv - Immunization history:: Adult Immunizations up to date. - Social history:: Smoking status: Patient denies any tobacco usage or history of. - Family history:: not pertinent. ROS: 05/20 01:15 Constitutional: Negative for fever, chills, and weight loss, Eyes: Negative for injury, yaya pain, redness, and discharge, ENT: Negative for injury, pain, and discharge, Neck: Negative for injury, pain, and swelling, Cardiovascular: Negative for chest pain, palpitations, and edema, Respiratory: Negative for shortness of breath, cough, wheezing, and pleuritic chest pain, Abdomen/GI: Negative for abdominal pain, nausea, vomiting, diarrhea, and constipation, Back: Negative for injury and pain, : Negative for injury, bleeding, discharge, and swelling, Skin: Negative for injury, rash, and discoloration, Neuro: Negative for headache, weakness, numbness, tingling, and seizure, Psych: Negative for depression, anxiety, suicide ideation, homicidal ideation, and hallucinations, Allergy/Immunology: Negative for hives, rash, and allergies, Endocrine: Negative for neck swelling, polydipsia, polyuria, polyphagia, and marked weight changes, MS/extremity: Positive for injury or acute deformity, laceration, pain, tenderness, of the right elbow and palmar aspect of right forearm, Exam: 01:15 Constitutional: This is a well developed, well nourished patient who is awake, alert, yaya and in no acute distress. Head/Face: Normocephalic, atraumatic. Eyes: Pupils equal round and reactive to light, extra-ocular motions intact. Lids and lashes normal. Conjunctiva and sclera are non-icteric and not injected. Cornea within normal limits. Periorbital areas with no swelling, redness, or edema. ENT: Nares patent. No nasal discharge, no septal abnormalities noted. Tympanic membranes are normal and external auditory canals are clear. Oropharynx with no redness, swelling, or masses, exudates, or evidence of obstruction, uvula midline. Mucous membranes moist. Neck: Trachea midline, no thyromegaly or masses palpated, and no cervical lymphadenopathy. Supple, full range of motion without nuchal rigidity, or vertebral point tenderness. No Meningismus. Chest/axilla: Normal chest wall appearance and motion. Nontender with no deformity. No lesions are appreciated. Cardiovascular: Regular rate and rhythm with a normal S1 and S2. No gallops, murmurs, or rubs. Normal PMI, no JVD. No pulse deficits. Respiratory: Lungs have equal breath sounds bilaterally, clear to auscultation and percussion. No rales, rhonchi or wheezes noted. No increased work of breathing, no retractions or nasal flaring. Abdomen/GI: Soft, non-tender, with normal bowel sounds. No distension or tympany. No guarding or rebound. No evidence of tenderness throughout. Back: No spinal tenderness. No costovertebral tenderness. Full range of motion. Male : Normal genitalia with no discharge or lesions. Skin: Warm, dry with normal turgor. Normal color with no rashes, no lesions, and no evidence of cellulitis. Neuro: Awake and alert, GCS 15, oriented to person, place, time, and situation. Cranial nerves II-XII grossly intact. Motor strength 5/5 in all extremities. Sensory grossly intact. Cerebellar exam normal. Normal gait. Psych: Awake, alert, with orientation to person, place and time. Behavior, mood, and affect are within normal limits. 01:15 Musculoskeletal/extremity: Extremities: grossly normal except: laceration, ROM: no acute changes, intact in all extremities, full active range of motion, full passive range of motion, in the right elbow and palmar aspect of right forearm, Circulation is intact in all extremities. Sensation intact. Compartment Syndrome exam of affected extremity: is normal. DVT Exam: negative Homans' sign noted on exam, no appreciated bluish discoloration, no erythema, no increased warmth, pain, swelling, tenderness, 02:06 ECG was reviewed by the Attending Physician. [facility] Vital Signs: 05/19 23:49 BP 148 / 54; Pulse 63; Resp 16; Temp 98.4; Pulse Ox 96% ; Weight 79.38 kg; Height 5 ft. rv 7 in. ; 05/20 02:00 BP 154 / 95; Pulse 76; Resp 17; Pulse Ox 96% ; jb4 03:00 BP 147 / 62; Pulse 76; Resp 16; Temp 98; Pulse Ox 96% on R/A; jb4 05/19 23:49 Body Mass Index 27.41 (79.38 kg, 170.18 cm) rv NIH Stroke Scale Scores: 02:06 NIHSS Score: 0 yaya Teddy Coma Score: 03:00 Eye Response: spontaneous(4). Motor Response: obeys commands(6). Verbal Response: jb4 oriented(5). Total: 15. Laceration: 02:04 Wound Repair of 4cm ( 1.6in ) subcutaneous laceration to right elbow. Skin/tissue flap yaya noted.. Distal neuro/vascular/tendon intact. Anesthesia: Local anesthetic administered with 8 mls of 1% lidocaine w/ Epi. Wound prep: Moderate cleansing with betadine. Skin closed with 5 4-0 Prolene using interrupted sutures and sterile technique. Dressed with Neosporin, non-adherent dressing. Patient tolerated well. MDM: 05/19 23:56 Patient medically screened. [facility] 05/20 01:17 Differential diagnosis: closed fracture, contusion, abrasion. Differential diagnosis: [facility] abrasion, closed head injury, contusion, laceration, multiple trauma, sprain, strain. Data reviewed: vital signs, nurses notes, lab test result(s), EKG, radiologic studies, CT scan, plain films. Consideration of Admission/Observation Escalation of care including admission/observation considered. I considered the following discharge prescriptions or medication management in the emergency department Medications were administered in the Emergency Department. See MAR. Independent interpretation of the following test(s) in the Emergency Department EKG: See my EKG interpretation above. Test considered but Not performed: MRI: no mri brain. Care significantly affected by the following chronic conditions: Hypertension, mi, ms, seizure. 05/19 23:59 Order name: Basic Metabolic Panel; Complete Time: 02:00 [facility] 05/19 23:59 Order name: CBC with Diff; Complete Time: 02:00 [facility] 05/19 23:59 Order name: LFT's; Complete Time: 02:00 [facility] 05/19 23:59 Order name: Magnesium; Complete Time: 02:00 [facility] 05/19 23:59 Order name: NT PRO-BNP; Complete Time: 02:00 [facility] 05/19 23:59 Order name: PT-INR; Complete Time: 02:00 [facility] 05/19 23:59 Order name: Troponin HS; Complete Time: 02:00 [facility] 05/19 23:59 Order name: Urinalysis w/ reflexes 05/19 23:59 Order name: XRAY Chest (1 view) 05/19 23:59 Order name: CT Traumagram (Head C Spine CAP W Con) 05/20 01:09 Order name: Elbow Right 3 View XRAY [facility] 05/19 23:59 Order name: EKG; Complete Time: 23:59 [facility] 05/19 23:59 Order name: Cardiac monitoring; Complete Time: 00:15 [facility] 05/19 23:59 Order name: EKG - Nurse/Tech; Complete Time: 00:15 [facility] 05/19 23:59 Order name: IV Saline Lock; Complete Time: 00:15 [facility] 05/19 23:59 Order name: Labs collected and sent; Complete Time: 00:15 [facility] 05/19 23:59 Order name: O2 Per Protocol; Complete Time: 00:15 [facility] 05/19 23:59 Order name: O2 Sat Monitoring; Complete Time: 00:15 [facility] 05/19 23:59 Order name: Wound Care; Complete Time: 00:17 05/20 01:09 Order name: Dressing - Wound; Complete Time: 01:11 05/20 01:09 Order name: Gloves, Sterile; Complete Time: 01:11 05/20 01:09 Order name: Prolene, Sutures; Complete Time: 01:11 yaya 05/20 01:09 Order name: Setup Suture Tray; Complete Time: : yaya 05/20 01:09 Order name: Wound dressing; Complete Time: :10 yaya EC:06 Rate is 61 beats/min. Rhythm is regular. QRS Lipan is Normal. NC interval is normal. QRS yaya interval is normal. QT interval is normal. No Q waves. T waves are Normal. No ST changes noted. Clinical impression: NSR w/ Non-specific ST/T Changes, 1st degree heart block, and No evidence of ischemia. Interpreted by me. Reviewed by me. Administered Medications: 00:15 Not Given (Product Out of Stock): tetanus toxoid,adsorbed0.5 ml IM once; Provide rv Vaccine Information Statement (VIS). 00:26 Drug: NS 0.9% IV 500 ml IV at bolus once Route: IV; Rate: bolus; Site: left femoral; as9 00:31 Drug: Boostrix Tdap IM 0.5 ml IM once; as a single dose Route: IM; Site: left deltoid; as9 03:01 Follow up: Response: No adverse reaction; Marked relief of symptoms rv 03:01 Drug: Lidocaine-Epinephrine Infiltration -1%: (1:100,000) 10 ml 20 ml Infiltration rv once; to bedside {Note: administered by Elia Wong} Volume: 20 ml; Route: Infiltration; Disposition Summary: 05/20/23 02:08 Discharge Ordered Notes: Location: Home yaya Problem: new yaya Symptoms: have improved yaya Condition: Stable yaya Diagnosis - Fall on same level, unspecified yaya - Laceration without foreign body of right elbow, initial encounter yaya - Contusion of forearm yaya - Contusion of unspecified part of head yaya Followup: yaya - With: Maddie Parham MD - When: 2 - 3 days - Reason: Recheck today's complaints, Continuance of care, Re-evaluation by your physician Followup: yaya - With: Darin Sanders MD - When: 2 - 3 days - Reason: Recheck today's complaints, Re-evaluation by your physician Discharge Instructions: - Discharge Summary Sheet yaya - Contusion yaya - Head Injury, Adult yaya - Laceration Care, Adult yaya - Nonsutured Laceration Care yaya - Contusion, [id number] yaya - Laceration Care, Adult, [id number] yaya - Head Injury, Adult, [id number] [facility] Forms: - Medication Reconciliation Form [facility] - Thank You Letter yaya - Antibiotic Education yaya - Prescription Opioid Use [facility] - Patient Portal Instructions [facility] - Leadership Thank You Letter [facility] Prescriptions: - Centany 2 % Topical ointment - apply 1 application TOPICAL route 3 times per day; 30 gram tube; Refills: 0, [facility] Product Selection Permitted - Cephalexin 500 mg Oral capsule - take 1 capsule ORAL route every 6 hours for 7 days; 28 capsule; Refills: 0, [facility] Product Selection Permitted NIH Stroke Scale - NIH Stroke Score Date: 05/20/2023 Time: 02:06 Total Score = 0 10. Dysarthria (speech clarity - read or repeat words) - 0(Normal) 11. Extinction and Inattention (visual/tactile/auditory/spatial/personal) - 0(No abnormality) 1a. Level of Consciousness (LOC) - 0(Alert) 1b. Level of Consciousness (LOC) (Month \T\ Age) - 0(Both) 1c. LOC Commands (Open \T\ Closes Eyes/Supervisor Train Operations) - 0(Both) 2. Best Gaze (Lateral Gaze Paresis) - 0(Normal) 3. Visual Field Loss - 0(No visual loss) 4. Facial Palsy - 0(Normal) 5a. Left Arm: Motor (10-second hold) - 0(No drift) 5b. Right Arm: Motor (10-second hold) - 0(No drift) 6a. Left Leg: Motor (5-second hold - always test supine) - 0(No drift) 6b. Right Leg: Motor (5-second hold - always test supine) - 0(No drift) 7. Limb Ataxia (finger/nose \T\ heel/beard - test with eyes open) - 0(Absent) 8. Sensory Loss (pinprick arms/legs/face) - 0(Normal) 9. Best Language: Aphasia (description/naming/reading) - 0(No aphasia) Initials: [facility] Signatures: Dispatcher [employer] Timothy Warren MD MD cha Vicente, Ronaldo RN RN Phillip Camarena RN RN as9
--- NOTE | 2023-05-20 02:08 | ER ---
Nurse's Notes [facility] Name: Eleuterio Baird Age: 72 yrs Sex: Male : 1950 Arrival Date: 05/19/2023 Time: 23:39 Bed 7 Private MD: Maddie Parham C Diagnosis: Fall on same level, unspecified;Laceration without foreign body of right elbow, initial encounter;Contusion of forearm;Contusion of unspecified part of head Presentation: 05/19 23:49 Chief complaint: Spouse and/or significant other states: doing yard work and fell rv backwards scraping both elbows on a brick wall. denies LOC. on blood thinner. multiple laceration on the right elbow with moderate bleeding, small abrasion on the left elbow, bleeding controlled. Coronavirus screen: At this time, the client does not indicate any symptoms associated with coronavirus-19. Ebola Screen: No symptoms or risks identified at this time. Initial Sepsis Screen: Does the patient meet any 2 criteria? No. Patient's initial sepsis screen is negative. Does the patient have a suspected source of infection? No. Patient's initial sepsis screen is negative. Risk Assessment: Do you want to hurt yourself or someone else? Patient reports no desire to harm self or others. Onset of symptoms was May 19, 2023. 23:49 Method Of Arrival: Ambulatory rv 23:49 Acuity: SALOME 3 rv Triage Assessment: 23:52 General: Appears in no apparent distress. Behavior is calm, cooperative. Pain: Denies rv pain. Neuro: Level of Consciousness is awake, alert, obeys commands, Oriented to person, place, time, situation. Cardiovascular: Capillary refill < 3 seconds Patient's skin is warm and dry. Respiratory: Airway is patent Respiratory effort is even, unlabored. GI: No signs and/or symptoms were reported involving the gastrointestinal system. : No signs and/or symptoms were reported regarding the genitourinary system. Derm: Skin has skin tears on bilateral elbow. Injury Description: Laceration sustained to right arm. Historical: - Allergies: 23:51 Amantadine; rv 23:51 Flagyl; rv - PMHx: 23:51 HTN; [place]; MS; Seizure; rv - PSHx: 23:51 None; rv - Immunization history:: Adult Immunizations up to date. - Social history:: Smoking status: Patient denies any tobacco usage or history of. - Family history:: not pertinent. Screenin:53 [facility] ED Fall Risk Assessment (Adult) History of falling in the last 3 months, rv including since admission Yes- fall prone (multiple falls) (3 pts) Score/Fall Risk Level 3 or more points = High Risk Oriented to surroundings, Maintained a safe environment, Educated pt \T\ family on fall prevention, incl call for assistance when getting out of bed, Assessed \T\ reinforced patient's understanding of fall precautions, Provided non-skid footwear. Abuse screen: Denies threats or abuse. Denies injuries from another. Nutritional screening: No deficits noted. Tuberculosis screening: No symptoms or risk factors identified. Vital Signs: 23:49 BP 148 / 54; Pulse 63; Resp 16; Temp 98.4; Pulse Ox 96% ; Weight 79.38 kg; Height 5 ft. rv 7 in. ; 05/20 02:00 BP 154 / 95; Pulse 76; Resp 17; Pulse Ox 96% ; jb4 03:00 BP 147 / 62; Pulse 76; Resp 16; Temp 98; Pulse Ox 96% on R/A; jb4 05/19 23:49 Body Mass Index 27.41 (79.38 kg, 170.18 cm) rv [place] Coma Score: 03:00 Eye Response: spontaneous(4). Motor Response: obeys commands(6). Verbal Response: jb4 oriented(5). Total: 15. NIH Stroke Scale Scores: 02:06 NIHSS Score: 0 yaya ED Course: 05/19 23:42 Patient arrived in ED. mr 23:42 Maddie Parham MD is Private Physician. mr 23:51 Triage completed. rv 23:52 Arm band placed on right wrist. rv 23:53 Patient has correct armband on for positive identification. Client placed on continuous rv cardiac and pulse oximetry monitoring. NIBP monitoring applied. environmental health manager on. 23:56 Timothy Wong MD is Attending Physician. yaya 23:59 Phillip Mireles, HARPER is Primary Nurse. as9 05/20 00:15 XRAY Chest (1 view) In Process Unspecified. EDMS 00:15 Radiology exam delayed due to lab results not completed at this time. (BUN/Creatinine) ls3 IV insertion attempt and/or patient not having appropriate IV at this time. 00:15 Inserted saline lock: 20 gauge in left forearm, using aseptic technique. Blood rv collected. 01:35 Elbow Right 3 View XRAY In Process Unspecified. EDMS 01:44 CT Traumagram (Head C Spine CAP W Con) In Process Unspecified. EDMS 02:07 Maddie Parham MD is Referral Physician. [facility] 02:07 Darin Sanders MD is Referral Physician. [facility] 03:21 Assist provider with laceration repair on right elbow and right arm that was between jb4 7.6 to 12.5 cm using sutures. Set up tray. Performed by Timothy Wong MD Dressed with 4X4s, Patient tolerated well. IV discontinued, intact, bleeding controlled, No redness/swelling at site. Pressure dressing applied. Administered Medications: 00:15 Not Given (Product Out of Stock): tetanus toxoid,adsorbed0.5 ml IM once; Provide rv Vaccine Information Statement (VIS). 00:26 Drug: NS 0.9% IV 500 ml IV at bolus once Route: IV; Rate: bolus; Site: left femoral; as9 00:31 Drug: Boostrix Tdap IM 0.5 ml IM once; as a single dose Route: IM; Site: left deltoid; as9 03:01 Follow up: Response: No adverse reaction; Marked relief of symptoms rv 03:01 Drug: Lidocaine-Epinephrine Infiltration -1%: (1:100,000) 10 ml 20 ml Infiltration rv once; to bedside {Note: administered by Elia Wong} Volume: 20 ml; Route: Infiltration; Medication: 02 23:53 VIS not applicable for this client. rv Outcome: 05/20 02:08 Discharge ordered by . [facility] 03:22 Discharged to home via wheelchair, with family, [facility] 03:22 Condition: good 03:22 Discharge instructions given to family, Instructed on discharge instructions, follow up and referral plans. medication usage, Demonstrated understanding of instructions, follow-up care, medications, wound care, Prescriptions given X 2, 03:22 Patient left the ED. jb4 NIH Stroke Scale - NIH Stroke Score Date: 05/20/2023 Time: 02:06 Total Score = 0 10. Dysarthria (speech clarity - read or repeat words) - 0(Normal) 11. Extinction and Inattention (visual/tactile/auditory/spatial/personal) - 0(No abnormality) 1a. Level of Consciousness (LOC) - 0(Alert) 1b. Level of Consciousness (LOC) (Month \T\ Age) - 0(Both) 1c. LOC Commands (Open \T\ Closes Eyes/Postal Worker) - 0(Both) 2. Best Gaze (Lateral Gaze Paresis) - 0(Normal) 3. Visual Field Loss - 0(No visual loss) 4. Facial Palsy - 0(Normal) 5a. Left Arm: Motor (10-second hold) - 0(No drift) 5b. Right Arm: Motor (10-second hold) - 0(No drift) 6a. Left Leg: Motor (5-second hold - always test supine) - 0(No drift) 6b. Right Leg: Motor (5-second hold - always test supine) - 0(No drift) 7. Limb Ataxia (finger/nose \T\ heel/beard - test with eyes open) - 0(Absent) 8. Sensory Loss (pinprick arms/legs/face) - 0(Normal) 9. Best Language: Aphasia (description/naming/reading) - 0(No aphasia) Initials: yaya Signatures: Dispatcher [employer] EDMS Timothy Wong MD MD cha Rivera, Fina, Reg Reg mr Darin Gamez, RN RN jb4 Shyam Arguello, RN Gianna Jackson ls3 Phillip Mireles, RN RN as9
[2023-05-20 03:39] VITALS: BP 147/62; TEMP 98; O2SAT 96
--- NOTE | 2023-05-20 10:32 | RAD REPORT ---
EXAM DESCRIPTION: XR Chest, 1 View CLINICAL HISTORY: COUGH TECHNIQUE: Frontal view of the chest. COMPARISON: No relevant prior studies available. FINDINGS: Lungs: Unremarkable. No consolidation. Pleural space: Unremarkable. No pneumothorax. Heart: Unremarkable. No cardiomegaly. Mediastinum: Unremarkable. Normal mediastinal contour. Bones/joints: Unremarkable. No acute fracture. Vasculature: Thoracic aortic atherosclerosis. IMPRESSION: No acute disease. Electronically signed by: Dinorah Anderson MD 05/20/2023 12:31 AM [employer] Due to temporary technical issues with the PACS/Fluency reporting system, reports are being signed by the in house radiologist without review as a courtesy to ensure prompt reporting. The interpreting r adiologist is fully responsible for the content of the report.
--- NOTE | 2023-05-20 11:10 | RAD REPORT ---
EXAM DESCRIPTION: ADDENDUM #1 CLINICAL HISTORY: PAIN, FALL COMPARISON: 01/16/2023. TECHNIQUE: CT HEAD C-SPINE WITHOUT CHEST ABDOMEN PELVIS WITH IV CONTRAST on 05/19/2023 11:59 PM BIT SHAVER. MIPS reconstructions were generated. This exam was performed according to our departmental dose-optimization program, which includes autom ated exposure control, adjustment of the mA and/or kV according to patient size and/or use of iterati ve reconstruction technique. FINDINGS: Vascular: Thoracic aorta is normal in course and caliber without aneurysm or dissection. P ulmonary arteries are adequately opacified without acute or chronic filling defects. Abdominal aorta is densely calcified without aneurysm. Pelvic arteries are patent without aneurysm or occlusion. Chest: The heart is mildly enlarged. There is no pericardial effusion. Intrathoracic lymph nodes are not enlarged. There is no pleural effusion, pleural thickening or pneumothorax. Central airways are patent. There i s bibasilar atelectasis and scarring. Abdomen: The liver is normal in appearance. There is no biliary dilatation. Cholecystectomy was perfo rmed. The pancreas and spleen are normal in appearance. The adrenal glands and kidneys are unremarkab le. There is no free air. There is no retroperitoneal adenopathy. Pelvis: There is no bowel obstruction. Urinary bladder is unremarkable. There is no free fluid. Appen vibha is not clearly seen. Skeleton: There are old compression fractures of T10 and T12. IMPRESSION: No definite acute posttraumatic findings. Electronically signed by: Josh Carbajal MD 05/20/2023 02:26 AM BIT SHAVER End of Addendum CLINICAL HISTORY: PAIN, FALL COMPARISON: None. TECHNIQUE: CT HEAD C-SPINE WITHOUT CHEST ABDOMEN PELVIS WITH IV CONTRAST on 05/19/2023 11:59 PM BIT SHAVER This exam was performed according to our departmental dose-optimization program, which includes autom ated exposure control, adjustment of the mA and/or kV according to patient size and/or use of iterati ve reconstruction technique. FINDINGS: Brain: There is no acute hemorrhage, mass effect or midline shift. [place]-white differentiat ion is preserved. There is no hydrocephalus. There is no significant volume loss for age. The calvarium is intact. Orbits and globes are unremarkable. The paranasal sinuses are clear. Mastoid air cells are clear. Cervical Spine: There is no acute fracture. Alignment is anatomic. There is minimal diffuse facet art hritis. There is mild narrowing of the C6-7 disc. Vertebral body heights are preserved. Soft tissues are unre markable. IMPRESSION: No acute postraumatic findings. Electronically signed by: Josh Carbajal MD 05/20/2023 02:05 AM BIT SHAVER Due to temporary technical issues with the PACS/Fluency reporting system, reports are being signed by the in house radiologist without review as a courtesy to ensure prompt reporting. The interpreting r adiologist is fully responsible for the content of the report.
--- NOTE | 2023-05-20 11:18 | RAD REPORT ---
EXAM DESCRIPTION: XR ELBOW 3 VIEWS RIGHT CLINICAL HISTORY: PAIN COMPARISON: None. TECHNIQUE: XR ELBOW 3 VIEWS RIGHT 05/20/2023 1:09 AM AIRCRAFT SYSTEMS REPAIRER FINDINGS: There is no fracture. Joint spaces are preserved. There is small amount of debris within the skin overlying the proximal ulna. IMPRESSION: No acute osseous findings. Electronically signed by: Josh Carbajal MD 05/20/2023 01:55 AM AIRCRAFT SYSTEMS REPAIRER Due to temporary technical issues with the PACS/Fluency reporting system, reports are being signed by the in house radiologist without review as a courtesy to ensure prompt reporting. The interpreting r adiologist is fully responsible for the content of the report.
--- NOTE | 2023-05-20 16:05 | EKG ---
Test Date: 2023-05-20 Test Time: 00:06:21 Sap Abap Programmer: Jillian MEASUREMENT RESULTS: Intervals: Rate: 61 IA: 220 QRSD: 104 QT: 410 QTc: 412 [place]: P: 47 IA: 220 QRS: 45 T: -5 INTERPRETIVE STATEMENTS: Sinus rhythm with 1st degree AV block Possible Inferior infarct, age undetermined Abnormal ECG Compared to ECG 10/12/2022 12:29:59 Myocardial infarct finding now present Sinus bradycardia no longer present Left ventricular hypertrophy no longer present Early repolarization no longer present Electronically Signed On 05-20-23 16:04:23 PATIENT TRANSPORTER by Brown Garzon
== END ==
LOC: ER 23:39
PROC: 0HQDXZZ Repair Right Lower Arm Skin, External Approach (ICD-10-PCS; principal; 2023-05-19)
DX: S51.011A Laceration without foreign body of right elbow, initial encounter (principal); S51.811A Laceration without foreign body of right forearm, initial encounter; S50.11XA Contusion of right forearm, initial encounter; S00.83XA Contusion of other part of head, initial encounter; W18.30XA Fall on same level, unspecified, initial encounter; I10 Essential (primary) hypertension; Z88.8 Allergy status to other drugs, medicaments and biological substances
CPT/HCPCS: 70450; 71045; 71260; 72125; 74177; 93005; Q9967

== ENCOUNTER → 2023-05-20 | Emergency (ER) | payer OTHER, MEDICARE ==
[2023-05-20 16:56] LABS: Absolute Lymphocytes (CBC) 0.4 K/uL (0.7-4.9); Hematocrit 30.8 % (39.6-49.0); Lymphocytes % 4.9 % (15.3-44.8); MCV 95.9 fL (80-100); MPV 8.5 fL (7.6-11.3); Platelets 176 thou/uL (152-406); RBC Red Blood Cell Count 3.21 M/uL (4.33-5.43)
[2023-05-20 17:06] LABS: Albumin 3.5 g/dL (3.4-5.0); Bilirubin Direct 0.1 mg/dL (0-0.2); Bilirubin Indirect, Calculated 0.3 mg/dL (0.2-0.8); Bilirubin Total 0.4 mg/dL (0.2-1.0); Magnesium 2.1 mg/dL (1.6-2.4); Potassium 4.5 mEq/L (3.5-5.1); Protein, Total 6.3 g/dL (6.4-8.2)
[2023-05-20 17:07] LABS: Protime INR 0.99
--- NOTE | 2023-05-20 17:09 | RAD REPORT ---
EXAM DESCRIPTION: CT - Head Brain Wo Cont - 05/20/2023 4:06 pm CLINICAL HISTORY: near syncope COMPARISON: Head Brain Wo Cont dated 04/02/2022; Head Brain Wo Cont dated 04/04/2018 TECHNIQUE: Noncontrast head CT images were obtained without IV contrast. Multiplanar reformats were generated and reviewed. All CT scans are performed using dose optimization technique as appropriate and may include automated exposure control or mA/KV adjustment according to patient size. FINDINGS: No intracranial hemorrhage, mass, or edema. Midline structures are unremarkable. Stable ventricular caliber with mild diffuse parenchymal volume loss. Stable periventricular white matter hypodensities, nonspecific, but suggestive of chronic small vesse l ischemic changes. [place]-white matter differentiation is preserved, without evidence of acute infarct . No abnormal extra-axial fluid collections. Mastoid air cells and visualized portions of the paranasal sinuses are clear. No acute bony findings. IMPRESSION: No evidence of an acute intracranial process. Stable nonspecific white matter hypodensities may relate to chronic small vessel ischemic changes.
--- NOTE | 2023-05-20 17:10 | RAD REPORT ---
[facility] 4[facility]44 pm CLINICAL HISTORY: near syncope COMPARISON: Chest Single View dated 05/20/2023; Chest Single View dated 10/12/2022; Chest Pa And Lat ( 2 Views) dated 10/15/2021; Abdomen 1 View (KUB) dated 01/01/2021 TECHNIQUE: Portable AP view of the chest. FINDINGS: The lungs are clear. Decreased inspiratory effort limits evaluation. No pneumothorax or e ffusion. The cardiomediastinal contours are unremarkable. IMPRESSION: No acute cardiopulmonary process.
--- NOTE | 2023-05-20 17:50 | EDPHYS ---
Physician Documentation [facility] Name: Eleuterio Baird Age: 72 yrs Sex: Male : 1950 Arrival Date: 05/20/2023 Time: 15:26 Bed 11 Private MD: ED Physician Chico Mcleod HPI: 05/20 16:57 This 72 yrs old Male presents to ER via EMS with complaints of Blood Pressure Problem. rn 16:57 reports patient was seated and at rest at home when she began to change his elbow rn dressing, was experiencing some pain and then felt lightheaded dizzy, began to sweat and blood pressure dropped. No syncope. No trauma. Now feels much better and is joking. Patient took his blood pressure medication this morning but has not really eaten anything. Seen here last night after fall which is where he obtained his sutures on his elbow. No intervention and patient feels back to normal.. Onset: The symptoms/episode began/occurred just prior to arrival. Severity of symptoms: At their worst the symptoms were moderate in the emergency department the symptoms have improved. The patient has experienced similar episodes in the past. The patient has been recently seen by a physician:. Historical: - Allergies: 15:30 Amantadine; bp 15:30 Flagyl; bp - PMHx: 15:30 HTN; [place]; MS; Seizure; bp - Immunization history:: Adult Immunizations up to date. - Social history:: Smoking status: Patient denies any tobacco usage or history of. - Family history:: not pertinent. - Hospitalizations: : No recent hospitalization is reported. ROS: 16:57 Constitutional: Negative for fever, chills, and weight loss, Eyes: Negative for injury, rn pain, redness, and discharge, Neck: Negative for injury, pain, and swelling, Cardiovascular: Negative for chest pain, palpitations, and edema, Respiratory: Negative for shortness of breath, cough, wheezing, and pleuritic chest pain, Abdomen/GI: Negative for abdominal pain, nausea, vomiting, diarrhea, and constipation, MS/Extremity: Positive for pain and sutured wound to right elbow Skin: Negative for injury, rash, and discoloration, Neuro: Negative for headache, weakness, numbness, tingling, and seizure, Exam: 16:57 Constitutional: This is a well developed, well nourished patient who is awake, alert, rn and in no acute distress. Jovial Head/Face: Normocephalic, atraumatic. ENT: No oral facial trauma Neck: No midline cervical tenderness Chest/axilla: Normal chest wall appearance and motion. Nontender with no deformity. No lesions are appreciated. Cardiovascular: Regular rate and rhythm. No pulse deficits. Respiratory: No increased work of breathing, no retractions or nasal flaring. Abdomen/GI: Soft, nontender MS/ Extremity: Pulses equal, no cyanosis Neuro: Awake and alert, GCS 15 Vital Signs: 15:28 BP 115 / 48; Pulse 50; Resp 16; Temp 98; Pulse Ox 100% ; bp 17:45 BP 127 / 56; Pulse 50; Resp 14; Pulse Ox 95% ; bp MDM: 15:30 Patient medically screened. rn 17:47 Differential Diagnosis Vasovagal reaction, dehydration, blood pressure adverse effect. rn Data reviewed: vital signs, nurses notes, lab test result(s), EKG, radiologic studies, CT scan, plain films, and as a result, I will discharge patient. Counseling: I had a detailed discussion with the patient and/or guardian regarding the historical points, exam findings, and any diagnostic results supporting the discharge/admit diagnosis, lab results, radiology results, the need for outpatient follow up, to return to the emergency department if symptoms worsen or persist or if there are any questions or concerns that arise at home. Response to treatment: the patient's symptoms have resolved after treatment, the patient's condition has returned to base line, the patient is now symptom free, and as a result, I will discharge patient. Special discussion: I discussed with the patient/guardian in detail that at this point there is no indication for admission to the hospital. It is understood, however, that if the symptoms persist or worsen the patient needs to return immediately for re-evaluation. ED course: No acute findings and workup here. No changes compared to yesterday. Completely back to baseline and normotensive. Most likely given timing of dressing change and symptoms as possible vasovagal reaction given correction of blood pressure without intervention. Patient is back to baseline, joking, will discharge home with return precautions.. 05/20 15:55 Order name: Basic Metabolic Panel; Complete Time: 17:21 rn 05/20 15:55 Order name: CBC with Diff rn 05/20 15:55 Order name: Hepatic Function; Complete Time: 17:21 rn 05/20 15:55 Order name: Magnesium; Complete Time: 17: rn 05/20 15:55 Order name: Protime (+inr); Complete Time: 17: rn 05/20 15:55 Order name: Ptt, Activated; Complete Time: 17:21 rn 05/20 15:55 Order name: Troponin High Sensitivity; Complete Time: 17: rn 05/20 15:55 Order name: CT Head Brain wo Cont; Complete Time: 17: rn 05/20 15:55 Order name: Chest Single View XRAY; Complete Time: 17: rn 05/20 15:55 Order name: EKG; Complete Time: 15:56 rn 05/20 15:55 Order name: Cardiac monitoring; Complete Time: 16:17 rn 05/20 15:55 Order name: IV Saline Lock; Complete Time: 16:38 rn 05/20 15:55 Order name: Labs collected and sent; Complete Time: 16:38 rn 05/20 15:55 Order name: O2 Per Protocol; Complete Time: 16:17 rn 05/20 15:55 Order name: O2 Sat Monitoring; Complete Time: 16:17 rn Administered Medications: 16:15 Drug: NS 0.9% IV 500 ml IV at bolus once Route: IV; Rate: bolus; Site: left antecubital;bp 18:26 Follow up: IV Status: Completed infusion; IV Intake: 1000ml bp Disposition Summary: 05/20/23 17:50 Discharge Ordered Notes: Location: Home rn Problem: new rn Symptoms: have improved rn Condition: Stable rn Diagnosis - Vasovagal reaction - resolved rn - Near Syncope rn Followup: rn - With: Private Physician - When: As needed - Reason: Recheck today's complaints, Re-evaluation by your physician Discharge Instructions: - Discharge Summary Sheet rn - Near-Syncope rn Forms: - Medication Reconciliation Form rn - Thank You Letter rn - Antibiotic yarn worker - Prescription Opioid Use rn - Patient Portal Instructions rn - Leadership Thank You Letter rn Prescriptions: - Tramadol 50 mg Oral Tablet - take 1 tablet ORAL route every 8 hours as needed; 12 tablet; Refills: 0, rn Product Selection Permitted Signatures: Dispatcher [employer] Chico Manzo MD MD rn Peltier, Brian, RN RN bp
--- NOTE | 2023-05-20 17:50 | ER ---
Nurse's Notes [facility] Name: Eleuterio Baird Age: 72 yrs Sex: Male : 1950 Arrival Date: 05/20/2023 Time: 15:26 Bed 11 Private MD: Diagnosis: Vasovagal reaction - resolved;Near Syncope Presentation: 05/20 15:28 Chief complaint: EMS states: LOW BP AND GEN WK AT HOME, DC LAST PM AFTER R ELBOW bp SUTURES. Coronavirus screen: At this time, the client does not indicate any symptoms associated with coronavirus-19. Ebola Screen: No symptoms or risks identified at this time. Initial Sepsis Screen: Does the patient meet any 2 criteria? No. Patient's initial sepsis screen is negative. Does the patient have a suspected source of infection? No. Patient's initial sepsis screen is negative. Risk Assessment: Do you want to hurt yourself or someone else? Patient reports no desire to harm self or others. Note HYPOTENSIVE ON SCENE. Onset of symptoms was May 20, 2023. Care prior to arrival: Medication(s) given: Normal saline infusion, 1000 mL, IV initiated. 20 GA, in the left antecubital area, Glucose check: 152. 15:28 Method Of Arrival: EMS[facility] bp 15:28 Acuity: SALOME 3 bp Triage Assessment: 15:30 General: Appears in no apparent distress. Behavior is calm, cooperative, appropriate bp for age. Pain: Denies pain. Neuro: R SIDED DEFICIT FROM MS. Historical: - Allergies: 15:30 Amantadine; bp 15:30 Flagyl; bp - PMHx: 15:30 HTN; [place]; MS; Seizure; bp - Immunization history:: Adult Immunizations up to date. - Social history:: Smoking status: Patient denies any tobacco usage or history of. - Family history:: not pertinent. - Hospitalizations: : No recent hospitalization is reported. Screenin:31 [facility] ED Fall Risk Assessment (Adult) History of falling in the last 3 months, bp including since admission No falls in past 3 months (0 pts). Abuse screen: Denies threats or abuse. Denies injuries from another. Nutritional screening: No deficits noted. Tuberculosis screening: No symptoms or risk factors identified. Assessment: 15:30 General: SEE TRIAGE NOTE. bp 17:46 Reassessment: Patient appears in no apparent distress at this time. Patient is alert, bp oriented x 3, equal unlabored respirations, skin warm/dry/pink. 18:25 Reassessment: DC VIA WHEELCHAIR WITH FAMILY. bp Vital Signs: 15:28 BP 115 / 48; Pulse 50; Resp 16; Temp 98; Pulse Ox 100% ; bp 17:45 BP 127 / 56; Pulse 50; Resp 14; Pulse Ox 95% ; bp ED Course: 15:27 Patient arrived in ED. as6 15:28 Calos Reilly, RN is Primary Nurse. bp 15:30 Triage completed. bp 15:30 Chico Mcleod MD is Attending Physician. rn 15:30 Arm band placed on. bp 15:31 Patient has correct armband on for positive identification. bp 15:31 Maintain EMS IV. Dressing intact. Good blood return noted. Site clean \T\ dry. Gauge \T\ bp site: 20 GA LEFT AC. 16:08 CT Head Brain wo Cont In Process Unspecified. EDMS 16:46 Chest Single View XRAY In Process Unspecified. EDMS 18:25 No provider procedures requiring assistance completed. IV discontinued, intact, bp bleeding controlled, No redness/swelling at site. Pressure dressing applied. Administered Medications: 16:15 Drug: NS 0.9% IV 500 ml IV at bolus once Route: IV; Rate: bolus; Site: left antecubital;bp 18:26 Follow up: IV Status: Completed infusion; IV Intake: 1000ml bp Medication: 18:25 VIS not applicable for this client. bp Intake: 18:26 IV: 1000ml; Total: 1000ml. bp Outcome: 17:50 Discharge ordered by . rn 18:25 Discharged to home via wheelchair, with family, bp 18:25 Condition: stable 18:25 Discharge instructions given to patient, family, Instructed on discharge instructions, follow up and referral plans. medication usage, Demonstrated understanding of instructions, follow-up care, medications, Prescriptions given X 1, 18:27 Patient left the ED. bp Signatures: Dispatcher [employer] EDMS Chico Mcleod MD MD rn Peltier, Brian, RN RN bp Redd Castillo RN RN as6
[2023-05-20 18:54] VITALS: BP 127/56; TEMP 98; O2SAT 95
[2023-05-20 20:20] LABS: Blood Morphology Comment NOT SEEN (NOT SEEN); Platelet Estimate ADEQ; White Blood Cell Scan OK (OK)
--- NOTE | 2023-05-24 14:43 | EKG ---
Test Date: 2023-05-20 Test Time: 17:04:31 Manager Dish: YESENIA MEASUREMENT RESULTS: Intervals: Rate: 67 CA: 294 QRSD: 100 QT: 412 QTc: 435 [place]: P: 49 CA: 294 QRS: 38 T: -3 INTERPRETIVE STATEMENTS: Sinus rhythm with marked sinus arrhythmia with 1st degree AV block Possible Inferior infarct, age undetermined Abnormal ECG Compared to ECG 05/20/2023 00:06:21 No significant changes Electronically Signed On 05-24-23 14:31:44 PHOTOFINISHING LABORATORY WORKER by Brown Garzon
== END ==
LOC: ER 15:26
DX: R55 Syncope and collapse (principal); I10 Essential (primary) hypertension; I25.2 Old myocardial infarction; Z88.8 Allergy status to other drugs, medicaments and biological substances
CPT/HCPCS: 36415; 70450; 71045; 80048; 80076; 83735; 84484; 85025; 85610; 85730; 93005

== ENCOUNTER 2023-11-18 17:29 | Emergency (ER) | payer OTHER, MEDICARE ==
[2023-11-18] MEDS ORDERED: LIDOCAINE 4% PATCH ONE (18:11)
--- NOTE | 2023-11-18 19:29 | RAD REPORT ---
EXAM DESCRIPTION: RAD - Thoracic Spine Ap/Lat - 11/18/2023 6:07 pm CLINICAL HISTORY: fall COMPARISON: Chest Single View dated 05/20/2023; Chest Single View dated 05/20/2023; Abdomen Pelvis W Contrast dated 10/12/2022; Lumbar Spine 3 Views dated 05/21/2022 TECHNIQUE: Thoracic spine, 2 views. FINDINGS: Stable superior endplate compression deformities at T10 and T12. Multilevel spondylotic ch anges with mild levoconvex curvature of the lower thoracic spine also appears stable. There are no ac yair or destructive bony processes see. No paraspinal masses are identified. No disc space narrowing. IMPRESSION: No acute findings. Stable spondylitic changes and superior endplate compression deformit ies at T10 and T12.
--- NOTE | 2023-11-18 19:32 | ER ---
[facility] Name: Eleuterio Baird Age: 72 yrs Sex: Male : 1950 Arrival Date: 11/18/2023 Time: 17:29 Bed 4 Private MD: Diagnosis: Back Pain Presentation: 11/17 17:37 Chief complaint: Patient states: Pt states he rolled out of the bed 2 nights ago and dd2 landed on his back hurting neck to middle of his back. Coronavirus screen: At this time, the client does not indicate any symptoms associated with coronavirus-19. Ebola Screen: No symptoms or risks identified at this time. Initial Sepsis Screen: Does the patient meet any 2 criteria? No. Patient's initial sepsis screen is negative. Does the patient have a suspected source of infection? No. Patient's initial sepsis screen is negative. Risk Assessment: Do you want to hurt yourself or someone else? Patient reports no desire to harm self or others. Onset of symptoms was November 17, 2023. 17:37 Method Of Arrival: Wheelchair dd2 17:37 Acuity: SALOME 3 dd2 Triage Assessment: 17:43 General: Appears in no apparent distress. Behavior is calm, cooperative. Pain: dd2 Complains of pain in posterior cervical area and thoracic area. Historical: - Allergies: 17:43 Amantadine; dd2 17:43 Flagyl; dd2 - Home Meds: 17:44 Plavix 75 mg Oral tablet [Active]; dd2 - PMHx: 17:43 HTN; [place]; MS; Seizure; dd2 - PSHx: 17:43 None; dd2 - Immunization history:: Adult Immunizations up to date. - Infectious Disease History:: Denies. - Social history:: Smoking status: Patient denies any tobacco usage or history of. Screenin:31 [facility] ED Fall Risk Assessment (Adult) History of falling in the last 3 months, ld1 including since admission Yes- single mechanical fall (1 pt) Confusion or Disorientation No (0 pts) Intoxicated or Sedated No (0 pts) Impaired Gait No (0 pts) Mobility Assist Device Used No (0 pt) Altered Elimination No (0 pt) Score/Fall Risk Level 0 - 2 = Low Risk Oriented to surroundings, Maintained a safe environment, Educated pt \T\ family on fall prevention, incl call for assistance when getting out of bed, Assessed \T\ reinforced patient's understanding of fall precautions, Provided non-skid footwear, Hourly rounding (assess needs \T\ fall precautionary measures) done, Used ambulatory aids as needed (educated on \T\ assisted with), Used gait belt as appropriate. Abuse screen: Denies threats or abuse. Denies injuries from another. Nutritional screening: No deficits noted. Nutritional screening: No deficits noted. Tuberculosis screening: No symptoms or risk factors identified. Assessment: 18:31 General: Appears in no apparent distress. comfortable, Behavior is calm, cooperative, ld1 appropriate for age. Pain: Complains of pain in back Pain does not radiate. Pain currently is 7 out of 10 on a pain scale. Quality of pain is described as pressure, throbbing, Pain began suddenly, Is continuous. Neuro: Level of Consciousness is awake, alert, obeys commands, Oriented to person, place, time, situation, Appropriate for age. Cardiovascular: Capillary refill < 3 seconds Patient's skin is warm and dry. Respiratory: Airway is patent Respiratory effort is even, unlabored. GI: Abdomen is flat, non-distended. : No signs and/or symptoms were reported regarding the genitourinary system. EENT: No signs and/or symptoms were reported regarding the EENT system. Derm: No signs and/or symptoms reported regarding the dermatologic system. 19:05 Reassessment: Patient appears in no apparent distress at this time. Patient and/or bm8 family updated on plan of care and expected duration. Pain level reassessed. Patient is alert, oriented x 3, equal unlabored respirations, skin warm/dry/pink. Pain: Complains of pain in back Pain does not radiate. Pain currently is 0 out of 10 on a pain scale. Neuro: Level of Consciousness is awake, alert, obeys commands, Oriented to person, place, time, situation, Appropriate for age. Cardiovascular: Denies chest pain, Capillary refill < 3 seconds Patient's skin is warm and dry. Respiratory: Airway is patent Respiratory effort is even, unlabored, Respiratory pattern is regular, symmetrical. Vital Signs: 17:37 BP 129 / 74; Pulse 65; Resp 16; Temp 97.4; Pulse Ox 97% ; dd2 18:31 BP 126 / 79; Pulse 61; Resp 18; Pulse Ox 98% on R/A; Pain 7/10; ld1 19:41 BP 125 / 74; Pulse 60; Resp 17; Temp 97.4; Pulse Ox 98% ; Pain 0/10; bm8 18:31 Pain Scale: Adult ld1 19:41 Pain Scale: Adult bm8 [place] Coma Score: 19:05 Eye Response: spontaneous(4). Motor Response: obeys commands(6). Verbal Response: bm8 oriented(5). Total: 15. 19:41 Eye Response: spontaneous(4). Motor Response: obeys commands(6). Verbal Response: bm8 oriented(5). Total: 15. ED Course: 17:32 Patient arrived in ED. im 17:32 Bharathi Zaman MD is Attending Physician. ec2 17:43 Triage completed. dd2 17:43 Arm band placed on left wrist. Patient placed in an exam room, on a stretcher, on pulse dd2 oximetry, Patient notified of wait time. 18:09 Spine Thoracic Ap/Lat XRAY In Process Unspecified. EDOR 18:10 Shraddha Rios, HARPER is Primary Nurse. ld1 18:31 Patient has correct armband on for positive identification. Placed in gown. Bed in low ld1 position. Call light in reach. Side rails up X2. Provided Education on: fall prevention. Pulse ox on. NIBP on. 18:31 No provider procedures requiring assistance completed. ld1 19:05 Patient did not have IV access during this emergency room visit. bm8 Administered Medications: 18:23 Drug: Lidoderm Topical Patch 5 % (700 mg/patch) 1 patches Topical once; leave on for 12 ph hours; cover most painful area; may cut into smaller pieces Route: Topical; Site: affected area; 19:42 Follow up: Response: No adverse reaction bm8 Medication: 19:05 VIS not applicable for this client. bm8 Outcome: 19:31 Discharge ordered by . ec2 19:41 Discharged to home via wheelchair, bm8 19:41 Condition: stable 19:41 Discharge instructions given to patient, family, Instructed on discharge instructions, follow up and referral plans. safety practices, Demonstrated understanding of instructions, follow-up care, medications, 19:42 Patient left the ED. bm8 Signatures: Dispatcher [employer] EDMarlene Ferro RN RN ph Rios, Shraddha, RN RN ld1 Lynsey Loredo Edwin, MD MD ec2 Ghanshyam Pruitt RN RN bm8 IDALIA BOSS RN RN dd2
--- NOTE | 2023-11-18 19:32 | EDPHYS ---
Physician Documentation [facility] Name: Eleuterio Baird Age: 72 yrs Sex: Male : 1950 Arrival Date: 11/18/2023 Time: 17:29 Bed 4 Private MD: ED Physician Bharathi Zaman HPI: 11/17 17:50 This 72 yrs old Male presents to ER via Wheelchair with complaints of Fall ec2 Injury, Head Injury Without LOC-Adult. 17:50 Patient arrives today for evaluation of a ground-level fall. He reports that yesterday ec2 he rolled out of bed, states having mid back pain. No LOC, is on Plavix. Denies any head pain or neck pain. Patient reports no prodromal symptoms, reports the pain is fairly minimal and only occurs when he sneezes.. Historical: - Allergies: 17:43 Amantadine; dd2 17:43 Flagyl; dd2 - Home Meds: 17:44 Plavix 75 mg Oral tablet [Active]; dd2 - PMHx: 17:43 HTN; CA; MS; Seizure; dd2 - PSHx: 17:43 None; dd2 - Immunization history:: Adult Immunizations up to date. - Infectious Disease History:: Denies. - Social history:: Smoking status: Patient denies any tobacco usage or history of. ROS: 17:50 Constitutional: as per hpi ec2 Exam: 17:50 Constitutional: GEN: No acute distress HEENT: -Head: no deformities -Eyes: EOMI CV: ec2 regular rate LUNGS: no respiratory distress ABD: non-tender SKIN: no wounds appreciated MSK: No C/T/L spine deformities, T spine TTP without crepitus or step-off appreciated RUE w/o bony deformity LUE w/o bony deformity RLE w/o bony deformity LLE w/o bony deformity NEURO: moves all extremities equally, GCS 15 (E4, V5, M6) Vital Signs: 17:37 BP 129 / 74; Pulse 65; Resp 16; Temp 97.4; Pulse Ox 97% ; dd2 18:31 BP 126 / 79; Pulse 61; Resp 18; Pulse Ox 98% on R/A; Pain 7/10; ld1 19:41 BP 125 / 74; Pulse 60; Resp 17; Temp 97.4; Pulse Ox 98% ; Pain 0/10; bm8 18:31 Pain Scale: Adult ld1 19:41 Pain Scale: Adult bm8 Teddy Coma Score: 19:05 Eye Response: spontaneous(4). Motor Response: obeys commands(6). Verbal Response: bm8 oriented(5). Total: 15. 19:41 Eye Response: spontaneous(4). Motor Response: obeys commands(6). Verbal Response: bm8 oriented(5). Total: 15. MDM: 17:39 Patient medically screened. ec2 17:50 Data reviewed: vital signs. ED course: Patient arrives today for mid back pain after ec2 fall. Examination remarkable for well-appearing nontoxic vigorous otherwise in no acute distress with pinpoint mid spine TTP without deformities or crepitus. Suspect muscle skeletal strain, doubt fracture however will obtain radiograph. Additionally considered other process such as intracranial brain bleed, C-spine fracture, lower suspicion for this, will accordingly forego CT scan of the head or C-spine.. 19:31 ED course: T-spine imaging shows no acute fracture. Will discharge home. Return ec2 precautions given.. 11/17 17:50 Order name: Spine Thoracic Ap/Lat XRAY; Complete Time: 19:31 ec2 Administered Medications: 18:23 Drug: Lidoderm Topical Patch 5 % (700 mg/patch) 1 patches Topical once; leave on for 12 ph hours; cover most painful area; may cut into smaller pieces Route: Topical; Site: affected area; 19:42 Follow up: Response: No adverse reaction bm8 Disposition Summary: 11/18/23 19:31 Discharge Ordered Notes: Location: Home ec2 Condition: Stable ec2 Diagnosis - Back Pain ec2 Followup: ec2 - With: Private Physician - When: - Reason: Re-evaluation by your physician Discharge Instructions: - Discharge Summary Sheet ec2 - Acute Back Pain, Adult ec2 Forms: - Medication Reconciliation Form ec2 - Antibiotic Education ec2 - Prescription Opioid Use ec2 - Patient Portal Instructions ec2 - Leadership Thank You Letter ec2 Signatures: Dispatcher [employer] Marlene Pearson RN RN ph Corral, Edwin, MD MD ec2 IDALIA BOSS RN RN dd2 Ghanshyam Pruitt RN bm8
[2023-11-18 20:15] VITALS: TEMP 97.4
[2023-11-18 20:16] VITALS: O2SAT 98
[2023-11-18 20:18] VITALS: BP 125/74
== END 2023-11-18 19:42 | disposition home or self-care (01) ==
LOC: ER 17:29
DX: M54.9 Dorsalgia, unspecified (principal); I10 Essential (primary) hypertension; I25.2 Old myocardial infarction; Z79.02 Long term (current) use of antithrombotics/antiplatelets; Z88.8 Allergy status to other drugs, medicaments and biological substances; Z88.1 Allergy status to other antibiotic agents
CPT/HCPCS: 72070; 99283; J2001

== ENCOUNTER 2024-01-18 19:30 | Emergency (ER) | payer OTHER, MEDICARE ==
[2024-01-18 20:02] LABS: Absolute Eosinophils 0.1 K/uL (0-0.5); Absolute Lymphocytes (CBC) 0.7 K/uL (0.7-4.9); Absolute Monocytes 0.5 K/uL (0.1-1.3); Absolute Neutrophil 2.1 K/uL (1.8-8.0); Eosinophils % 3.8 % (0-4.4); Hematocrit 35.6 % (39.6-49.0); Hemoglobin 11.8 g/dL (13.6-17.9); Lymphocytes % 21.4 % (15.3-44.8); MCH 32.3 pg (27.0-35.0); MPV 9.4 fL (7.6-11.3); Monocytes % 14.1 % (3.3-12.3); Neutrophils % 59.7 % (41.7-73.7); Platelets 172 thou/uL (152-406); RBC Red Blood Cell Count 3.64 M/uL (4.33-5.43); Red Cell Distribution Width 14.2 % (12.1-15.2)
[2024-01-18 20:18] LABS: PT Prothrombin Time 10.3 SECONDS (9.4-12.5); Protime INR 0.92
--- NOTE | 2024-01-18 20:26 | RAD REPORT ---
EXAMINATION: ONE VIEW CHEST XR CLINICAL INDICATION: Male, 73 years old.CHEST PAIN TECHNIQUE: 1 View, AP supine, X-ray of the chest was performed. [id number]. COMPARISON: 05/20/2023 FINDINGS: Lungs and pleura: Clear lungs. No effusion. Similar chronic lung changes. Heart and mediastinum: Similar size and configuration Unremarkable mediastinal contours. Osseous structures: No acute abnormality. Tubes/lines: None Other: None. IMPRESSION: No acute intrathoracic abnormality.
[2024-01-18 20:31] LABS: BUN Blood Urea Nitrogen 15 mg/dL (7-18); Bicarbonate 31 mEq/L (21-32); Glomerular Filtration Rate 103 ml/min (=/>90); Glucose Level 93 mg/dL (74-106); NT PRO-BNP 528 pg/mL (<125); Sodium Level 138 mEq/L (136-145); Troponin High Sensitivity 27.1 pg/mL (<58.9)
[2024-01-18 20:32] LABS: Magnesium 2.1 mg/dL (1.6-2.4)
[2024-01-18 21:35] LABS: ALT/SGPT 23 U/L (16-61); AST/SGOT 17 U/L (15-37); Albumin 3.5 g/dL (3.4-5.0); Albumin/Globulin Ratio 1.3 (1.1-1.8); Alkaline Phosphatase 143 U/L (45-117); Globulin 2.8 g/dL (2.3-3.5); Lipase 43 U/L (13-75); Protein, Total 6.3 g/dL (6.4-8.2)
[2024-01-18 21:36] LABS: Bilirubin Direct < 0.2 mg/dL (0-0.2); Bilirubin Total < 0.2 mg/dL (0.2-1.0); C-Reactive Protein < 2.90 mg/L (<3.00)
[2024-01-19] MEDS ORDERED: HEPARIN/D5W 25,000 UNIT/500 ML BAG IV ONE (00:02)
[2024-01-19] MEDS ORDERED: HEPARIN 5000 UNIT/ML 1 ML VIAL ONE (00:02)
[2024-01-19] MEDS ORDERED: NITROGLYCERIN 1 GM PKT TD ONE (00:02)
[2024-01-19] MEDS ORDERED: HYDRALAZINE HCL 20 MG/ML VIAL ONE (02:13)
--- NOTE | 2024-01-19 02:18 | ER ---
Nurse's Notes [facility] Name: Eleuterio Baird Age: 73 yrs Sex: Male : 1950 Arrival Date: 01/18/2024 Time: 19:30 Bed 3 Private MD: Diagnosis: Unstable angina;Essential (primary) hypertension Presentation: 01/17 19:34 Chief complaint: EMS states: Chest pain that started 2 hours ago. Reports 9 stents and cp4 a current blockage. Coronavirus screen: Client denies travel out of the [place] in the last 14 days. At this time, the client does not indicate any symptoms associated with coronavirus-19. Ebola Screen: Patient negative for fever greater than or equal to 101.5 degrees Fahrenheit, and additional compatible Ebola Virus Disease symptoms Patient denies exposure to infectious person. Patient denies travel to an Ebola-affected area in the 21 days before illness onset. No symptoms or risks identified at this time. Initial Sepsis Screen: Does the patient meet any 2 criteria? No. Patient's initial sepsis screen is negative. Does the patient have a suspected source of infection? No. Patient's initial sepsis screen is negative. Risk Assessment: Do you want to hurt yourself or someone else? Patient reports no desire to harm self or others. Onset of symptoms was January 18, 2024. Care prior to arrival: Medication(s) given: ASA, 81 mg, x 3. 19:34 Method Of Arrival: EMS: [facility] cp4 19:34 Acuity: SALOME 3 cp4 Triage Assessment: 19:37 General: Appears in no apparent distress. comfortable, Behavior is calm, cooperative, cp4 appropriate for age. Pain: Denies pain. EENT: No signs and/or symptoms were reported regarding the EENT system. Neuro: Level of Consciousness is awake, alert, obeys commands, Oriented to person, place, time, situation. Cardiovascular: Reports chest pain, Patient's skin is warm and dry. Rhythm is sinus rhythm. Respiratory: Airway is patent Respiratory effort is even, unlabored. GI: No signs and/or symptoms were reported involving the gastrointestinal system. : No signs and/or symptoms were reported regarding the genitourinary system. Derm: No signs and/or symptoms reported regarding the dermatologic system. Musculoskeletal: No signs and/or symptoms reported regarding the musculoskeletal system. Historical: - Allergies: 19:37 Amantadine; cp4 19:37 Flagyl; cp4 - Home Meds: 20:36 Plavix 75 mg Oral tablet [Active]; atorvastatin 80 mg oral tablet 1 tab daily [Active]; cp4 carbamazepine 200 mg Oral Tablet, Extended Release 12 hr 2 tabs 2 times per day [Active]; cyanocobalamin (vitamin B-12) 1,000 mcg/mL injection Kit every month [Active]; dimethyl fumarate 240 mg oral capsule,delayed release (e.c.) 1 cap 2 times per day [Active]; finasteride 5 mg oral tablet 1 tab daily [Active]; gabapentin 300 mg oral capsule 2 caps 3 times per day [Active]; latanoprost 0.005 % ophthalmic (eye) drops 1 drop every evening [Active]; levothyroxine 50 mcg capsule 1 cap once [Active]; lisinopril 5 mg Oral tablet 1 tab once [Active]; metoprolol tartrate 50 mg Oral tablet 0.5 tabs 2 times per day [Active]; oxybutynin chloride 5 mg Oral Tablet, Extended Release 24 hr 1 tab 3 times a day [Active]; potassium chloride 20 mEq Oral tablet, extended release 1 tab once [Active]; timolol maleate 0.25 % Opht drops 1 drop once [Active]; - PMHx: 19:37 HTN; DC; MS; Seizure; cp4 - Immunization history:: Adult Immunizations up to date. - Infectious Disease History:: Denies. - Social history:: Smoking status: Patient denies any tobacco usage or history of. - Family history:: not pertinent. Screenin:39 [facility] ED Fall Risk Assessment (Adult) History of falling in the last 3 months, cp4 including since admission No falls in past 3 months (0 pts) Confusion or Disorientation No (0 pts) Intoxicated or Sedated No (0 pts) Impaired Gait No (0 pts) Mobility Assist Device Used No (0 pt) Altered Elimination No (0 pt) Score/Fall Risk Level 0 - 2 = Low Risk Oriented to surroundings, Maintained a safe environment, Assessed \T\ reinforced patient's understanding of fall precautions, Hourly rounding (assess needs \T\ fall precautionary measures) done. Abuse screen: Denies threats or abuse. Nutritional screening: No deficits noted. Tuberculosis screening: No symptoms or risk factors identified. Assessment: 19:39 Reassessment: No changes from previously documented assessment. Pain: Pain does not cp4 radiate. Pain began 2 hours ago. 20:30 Reassessment: Patient appears in no apparent distress at this time. Patient and/or cp4 family updated on plan of care and expected duration. Pain level reassessed. Patient is alert, oriented x 3, equal unlabored respirations, skin warm/dry/pink. 21:30 Reassessment: Patient appears in no apparent distress at this time. Patient and/or cp4 family updated on plan of care and expected duration. Pain level reassessed. Patient is alert, oriented x 3, equal unlabored respirations, skin warm/dry/pink. 22:30 Reassessment: Patient appears in no apparent distress at this time. Patient and/or cp4 family updated on plan of care and expected duration. Pain level reassessed. Patient is alert, oriented x 3, equal unlabored respirations, skin warm/dry/pink. 23:30 Reassessment: Patient appears in no apparent distress at this time. Patient and/or cp4 family updated on plan of care and expected duration. Pain level reassessed. Patient is alert, oriented x 3, equal unlabored respirations, skin warm/dry/pink. 01/18 00:30 Reassessment: Patient reports return of chest pain. States he feels pressure on his cp4 chest. Provider notified and repeat EKG completed. 01:30 Reassessment: Patient appears in no apparent distress at this time. Patient and/or cp4 family updated on plan of care and expected duration. Pain level reassessed. Patient is alert, oriented x 3, equal unlabored respirations, skin warm/dry/pink. 02:44 Reassessment: EKG changes noted on the heart monitor. Pt now reports the sensation of jb4 someone standing on his chest. Provider notified, repeat EKG obtained and given to ER provider. See MAR for orders. 03:30 Reassessment: Patient appears in no apparent distress at this time. Patient and/or cp4 family updated on plan of care and expected duration. Pain level reassessed. Patient is alert, oriented x 3, equal unlabored respirations, skin warm/dry/pink. Vital Signs: 01/17 19:34 BP 171 / 62; Pulse 60; Resp 16; Temp 98.5; Pulse Ox 99% ; Weight 78.02 kg; Height 5 ft. cp4 7 in. ; Pain 0/10; 20:30 BP 153 / 60; Pulse 57; Resp 18; Pulse Ox 97% ; cp4 21:30 BP 158 / 63; Pulse 55; Resp 18; Pulse Ox 98% ; cp4 22:30 BP 170 / 66; Pulse 55; Resp 17; Pulse Ox 97% ; cp4 23:30 BP 190 / 76; Pulse 56; Resp 18; Pulse Ox 97% ; cp4 01/18 00:09 Weight 78.02 kg; cp4 00:30 BP 199 / 71; Pulse 55; Resp 18; Pulse Ox 99% on 2 lpm NC; cp4 01:22 BP 185 / 67; Pulse 52; Resp 18; Pulse Ox 99% on 2 lpm NC; cp4 02:18 BP 190 / 77; Pulse 56; Resp 13; Pulse Ox 99% on 2 lpm NC; jb4 02:45 BP 171 / 73; Pulse 81; Resp 18; Pulse Ox 98% on 2 lpm NC; jb4 02:54 BP 136 / 50; Pulse 66; Resp 17; Pulse Ox 98% on 2 lpm NC; cp4 03:10 BP 100 / 42; Pulse 50; Resp 18; Pulse Ox 100% on 2 lpm NC; cp4 03:24 BP 126 / 50; Pulse 62; Resp 18; Pulse Ox 95% on 2 lpm NC; cp4 03:50 BP 146 / 58; Pulse 70; Resp 18; Pulse Ox 100% on 2 lpm NC; cp4 04:22 BP 153 / 58; Pulse 62; Resp 16; Pulse Ox 97% on 2 lpm NC; cp4 04:51 BP 179 / 69; Pulse 62; Resp 18; Pulse Ox 97% on 2 lpm NC; cp4 01/17 19:34 Body Mass Index 26.94 (78.02 kg, 170.18 cm) cp4 01/17 19:34 Pain Scale: Adult cp4 Teddy Coma Score: 02:20 Eye Response: spontaneous(4). Motor Response: obeys commands(6). Verbal Response: sp4 oriented(5). Total: 15. 02:42 Eye Response: spontaneous(4). Motor Response: obeys commands(6). Verbal Response: sp4 oriented(5). Total: 15. ED Course: 01/17 19:34 Patient arrived in ED. cp4 19:34 Yovana Chaudhary is Primary Nurse. cp4 19:37 Triage completed. cp4 19:37 Arm band placed on right wrist. Patient placed in an exam room, on a stretcher. EKG cp4 completed in triage. Results shown to MD. 19:39 Placed in gown. Bed in low position. Call light in reach. Side rails up X 1. Provided cp4 Education on: chest pain. Client placed on continuous cardiac and pulse oximetry monitoring. NIBP monitoring applied. residential monitor on. Pulse ox on. NIBP on. 19:39 No provider procedures requiring assistance completed. Maintain EMS IV. Dressing cp4 intact. Good blood return noted. Site clean \T\ dry. Gauge \T\ site: 20 LAC. Flushed with 10 mL NS IV is patent, is intact, Flushed saline lock. Patient maintains SpO2 saturation greater than 95% on room air. 19:56 Initial lab(s) drawn, by me, sent to lab. cp4 20:05 Felipe Chavarria MD is Attending Physician. sp4 20:10 XRAY Chest (1 view) In Process Unspecified. EDMS 01/18 00:30 Inserted saline lock: 20 gauge in right antecubital area, using aseptic technique. cp4 Flushed with 10 mL NS 02:31 Initiated transfer with Cheli at [facility]. rv1 03:08 Called Cheli at the transfer center to update about patient needing ICU. rv1 04:54 Patient transferred, IV remains in place. cp4 Administered Medications: 00:10 Drug: Nitroglycerin Transdermal Ointment 2 % 1 inches Transdermal once Route: cp4 Transdermal; Site: anterior chest wall; 00:44 Follow up: Response: No adverse reaction cp4 00:18 Not Given (Other Intervention Used): Heparin (DC Drip) - ([id number] units, [id number] lg3 ml) 12 units/kg/hr IV at calculated rate Per protocol; Max initial rate 1000 units/hr 00:20 Not Given (Physician Discretion): Heparin (DC-Bolus with thrombolytic) - [id number] lg3 units/kg IVP once; Max 4000 units 00:42 Drug: Heparin (DC Drip) 12 units/kg/hr - ([place] [address] units, D5W IV 500 ml) IV at cp4 calculated rate Per protocol; Max initial rate 1000 units/hr {Co-Signature: br2 (Mary Kam RN).} Route: IV; Rate: calculated rate; Site: right antecubital; 04:53 Follow up: IV Status: Infusion continued upon transfer cp4 00:42 Drug: Heparin (DC-Bolus with thrombolytic) - HEParin IVP 60 units/kg IVP once; Max 5000 cp4 units {Co-Signature: br2 (Mary Kam RN).} Route: IVP; Site: right antecubital; 01:15 Follow up: Response: No adverse reaction cp4 02:18 Drug: hydrALAZINE IVP 20 mg IVP once Route: IVP; Site: left antecubital; jb4 02:48 Follow up: Response: No adverse reaction; Blood pressure is lowered cp4 02:48 Drug: morphine IVP or IV 4 mg IVP once over 4 mins Route: IVP; Infused Over: 4 mins; cp4 Site: left antecubital; 03:22 Follow up: Response: No adverse reaction cp4 02:48 Drug: Ondansetron IVP 4 mg IVP once; over 2 minutes Route: IVP; Site: left antecubital; cp4 03:22 Follow up: Response: No adverse reaction cp4 03:21 Drug: NS 0.9% IV 1000 ml IV at 1000 ml once; to be given as a bolus over 60 minutes lg3 Route: IV; Rate: 1000 ml; Site: left antecubital; 04:52 Follow up: Response: No adverse reaction; IV Status: Completed infusion cp4 03:45 Drug: amiodarone IVPB 150 mg 100 ml IVPB once over 10 mins; (mix in D5W) Volume: 100 cp4 ml; Route: IVPB; Infused Over: 10 mins; Site: left antecubital; 04:04 Follow up: IV Status: Completed infusion cp4 04:04 Drug: amiodarone IVPB 900 mg, D5W IV 500 ml IVPB at 1 mg/min continuous; for 6 hrs, cp4 then change to 0.5 mg/min Route: IVPB; Rate: 1 mg/min; Site: left antecubital; 04:53 Follow up: IV Status: Infusion continued upon transfer cp4 Medication: 01/17 19:39 VIS not applicable for this client. cp4 Outcome: 01/18 02:18 ER care complete, transfer ordered by . sp4 04:54 Transferred by helicopter to [facility] [place] form completed. cp4 X-rays sent w/ patient. 04:54 Condition: stable 04:54 Instructed on the need for transfer, 04:56 Patient left the ED. cp4 Signatures: Dispatcher [employer] Darin Carey, RN RN jb4 Kirti Bermudez RN RN lg3 Jing Dorsey Sergey, MD MD sp4 Yovana Chaudhary cp4 Mary Kam RN br2
--- NOTE | 2024-01-19 02:18 | EDPHYS ---
Physician Documentation [facility] Name: Eleuterio Baird Age: 73 yrs Sex: Male : 1950 Arrival Date: 01/18/2024 Time: 19:30 Bed 3 Private MD: ED Physician Felipe Chavarria HPI: 01/17 20:05 This 73 yrs old Male presents to ER via EMS with complaints of Chest Pain. sp4 01/18 02:09 23-year-old male with history of multiple sclerosis, hypertension, myocardial sp4 infarction coronary artery disease and seizures, presents with acute onset midsternal chest pain associated with shortness of breath and diaphoresis resolving prior to arrival.. Patient reports history of 9 prior coronary artery stents. . 02:20 Primary Bi Report Developer is Tremaine puckett [facility] . sp4 Historical: - Allergies: 01/17 19:37 Amantadine; cp4 19:37 Flagyl; cp4 - Home Meds: 20:36 Plavix 75 mg Oral tablet [Active]; atorvastatin 80 mg oral tablet 1 tab daily [Active]; cp4 carbamazepine 200 mg Oral Tablet, Extended Release 12 hr 2 tabs 2 times per day [Active]; cyanocobalamin (vitamin B-12) 1,000 mcg/mL injection Kit every month [Active]; dimethyl fumarate 240 mg oral capsule,delayed release (e.c.) 1 cap 2 times per day [Active]; finasteride 5 mg oral tablet 1 tab daily [Active]; gabapentin 300 mg oral capsule 2 caps 3 times per day [Active]; latanoprost 0.005 % ophthalmic (eye) drops 1 drop every evening [Active]; levothyroxine 50 mcg capsule 1 cap once [Active]; lisinopril 5 mg Oral tablet 1 tab once [Active]; metoprolol tartrate 50 mg Oral tablet 0.5 tabs 2 times per day [Active]; oxybutynin chloride 5 mg Oral Tablet, Extended Release 24 hr 1 tab 3 times a day [Active]; potassium chloride 20 mEq Oral tablet, extended release 1 tab once [Active]; timolol maleate 0.25 % Opht drops 1 drop once [Active]; - PMHx: 19:37 HTN; MA; MS; Seizure; cp4 - Immunization history:: Adult Immunizations up to date. - Infectious Disease History:: Denies. - Social history:: Smoking status: Patient denies any tobacco usage or history of. - Family history:: not pertinent. ROS: 01/18 02:20 Constitutional: Negative for fever, chills, and weight loss, positive left chest sp4 pain. positive diaphoresis positive shortness of breath All other systems are negative, Exam: 01/17 21:14 Constitutional: This is a well developed, well nourished patient who is awake, alert, sp4 and in no acute distress. Head/Face: Normocephalic, atraumatic. Eyes: Pupils equal round and reactive to light, extra-ocular motions intact. Lids and lashes normal. Conjunctiva and sclera are not injected. Cornea within normal limits. Periorbital areas with no swelling, redness, or edema. ENT: Nares patent. No nasal discharge, no septal abnormalities noted. Tympanic membranes are normal and external auditory canals are clear. Oropharynx with no redness, swelling, or masses, exudates, or evidence of obstruction, uvula midline. Mucous membranes moist. Neck: Trachea midline, no thyromegaly or masses palpated, and no cervical lymphadenopathy. Supple, full range of motion without nuchal rigidity, or vertebral point tenderness. Chest/axilla: Normal chest wall appearance and motion. Nontender with no deformity. No lesions are appreciated. Cardiovascular: Regular rate and rhythm with a normal S1 and S2. No gallops, murmurs, or rubs. Normal PMI, no JVD. No pulse deficits. Respiratory: Lungs have equal breath sounds bilaterally, clear to auscultation and percussion. No rales, rhonchi or wheezes noted. No increased work of breathing, no retractions or nasal flaring. Abdomen/GI: Soft, with normal bowel sounds. No distension or tympany. No guarding or rebound. No evidence of tenderness throughout. Back: No spinal tenderness. No costovertebral tenderness. Skin: Warm, dry with normal turgor. Normal color with no rashes, no lesions, and no evidence of cellulitis. MS/ Extremity: Pulses equal, no cyanosis. Neurovascular intact. Full, normal range of motion. Neuro: Awake and alert, GCS 15, oriented to person, place, time, and situation. Cranial nerves II-XII grossly intact. Motor strength 5/5 in all extremities. Sensory grossly intact. Psych: Awake, alert, with orientation to person, place and time. Behavior, mood, and affect are within normal limits ECG was reviewed by the Attending Physician. EKG at 1937 sinus bradycardia first-degree AV block rate 58. 01/18 02:42 ECG was reviewed by the Attending Physician. Repeat EKG at 0 237 sinus rhythm sp4 rate 85, deep ST depression V4 V5 V6. No ST depression in V6 worsening ST depression with 4 V5 Vital Signs: 01/17 19:34 BP 171 / 62; Pulse 60; Resp 16; Temp 98.5; Pulse Ox 99% ; Weight 78.02 kg; Height 5 ft. cp4 7 in. ; Pain 0/10; 20:30 BP 153 / 60; Pulse 57; Resp 18; Pulse Ox 97% ; cp4 21:30 BP 158 / 63; Pulse 55; Resp 18; Pulse Ox 98% ; cp4 22:30 BP 170 / 66; Pulse 55; Resp 17; Pulse Ox 97% ; cp4 23:30 BP 190 / 76; Pulse 56; Resp 18; Pulse Ox 97% ; cp4 01/18 00:09 Weight 78.02 kg; cp4 00:30 BP 199 / 71; Pulse 55; Resp 18; Pulse Ox 99% on 2 lpm NC; cp4 01:22 BP 185 / 67; Pulse 52; Resp 18; Pulse Ox 99% on 2 lpm NC; cp4 02:18 BP 190 / 77; Pulse 56; Resp 13; Pulse Ox 99% on 2 lpm NC; jb4 02:45 BP 171 / 73; Pulse 81; Resp 18; Pulse Ox 98% on 2 lpm NC; jb4 02:54 BP 136 / 50; Pulse 66; Resp 17; Pulse Ox 98% on 2 lpm NC; cp4 03:10 BP 100 / 42; Pulse 50; Resp 18; Pulse Ox 100% on 2 lpm NC; cp4 03:24 BP 126 / 50; Pulse 62; Resp 18; Pulse Ox 95% on 2 lpm NC; cp4 03:50 BP 146 / 58; Pulse 70; Resp 18; Pulse Ox 100% on 2 lpm NC; cp4 04:22 BP 153 / 58; Pulse 62; Resp 16; Pulse Ox 97% on 2 lpm NC; cp4 04:51 BP 179 / 69; Pulse 62; Resp 18; Pulse Ox 97% on 2 lpm NC; cp4 01/17 19:34 Body Mass Index 26.94 (78.02 kg, 170.18 cm) cp4 01/17 19:34 Pain Scale: Adult cp4 [place] Coma Score: 02:20 Eye Response: spontaneous(4). Motor Response: obeys commands(6). Verbal Response: sp4 oriented(5). Total: 15. 02:42 Eye Response: spontaneous(4). Motor Response: obeys commands(6). Verbal Response: sp4 oriented(5). Total: 15. MDM: 01/17 20:06 Medical Screening Exam initiated sp4 01/18 02:20 Differential diagnosis: acute myocardial infarction, acute pericarditis, anxiety, sp4 coronary artery disease costochondritis, esophagitis, gastritis. HEART Score: History: Highly Suspicious (2), ECG: Non specific repolarization disturbance / LBTB / PM (1), Age: > or = 65 years (2), Risk Factors: > or = 3 Risk factors for atherosclerotic disease (2), Troponin: < or = 1 x Normal Limit (0), Total Score = 7. The patient was not given aspirin in the Emergency Department. Patient reports taking aspirin within the past 24 hours. Data reviewed: vital signs, nurses notes, old medical records, lab test result(s), EKG, radiologic studies, plain films. ED course: EXAMINATION: ONE VIEW CHEST XR CLINICAL INDICATION: Male, 73 years old.CHEST PAIN TECHNIQUE: 1 View, AP supine, X-ray of the chest was performed. [id number]. COMPARISON: 05/20/2023 FINDINGS: Lungs and pleura: Clear lungs. No effusion. Similar chronic lung changes. Heart and mediastinum: Similar size and configuration Unremarkable mediastinal contours. Osseous structures: No acute abnormality. Tubes/lines: None Other: None. IMPRESSION: No acute intrathoracic abnormality. . ED course: Patient had episode of recurrent chest pain and they are also elevated blood pressure. At this time patient is too high risks of sent home. Repeat EKG reveals ST depressions in lead V4 to V5. Troponin x 3 is negative at this time. Patient is not able to stay here because Nutrition Program Instructor is closed. Patient is being prepared for transfer to [facility] to be seen by nutrition helper there. . 03:36 ED course: Patient was discussed with [facility] nutrition helper and accepted to [facility] CCU. 03:54 ED course: Patient discussed with examination scorer at [facility] and accepted to CCU..4 01/17 19:47 Order name: Basic Metabolic Panel; Complete Time: 21:54 kb 01/17 19:47 Order name: CBC with Diff; Complete Time: 21:13 kb 01/17 19:47 Order name: Magnesium; Complete Time: 21:54 kb 01/17 19:47 Order name: NT PRO-BNP; Complete Time: 21:54 kb 01/17 19:47 Order name: Troponin HS; Complete Time: 21:54 kb 01/17 19:55 Order name: PT-INR; Complete Time: 21:13 lg3 01/17 20:35 Order name: Liver (Hepatic) Function; Complete Time: 21:54 EDMS 01/17 20:35 Order name: C-Reactive Protein; Complete Time: 21:54 EDMS 01/17 20:35 Order name: Lipase; Complete Time: 21:54 EDMS 01/17 21:54 Order name: Troponin High Sensitivity: Collect at 23:50; Complete Time: 23:14 sp4 01/17 23:39 Order name: Troponin HS; Complete Time: 00:30 cp4 01/18 00:22 Order name: Ptt, Activated; Complete Time: 03:11 cp4 01/18 03:08 Order name: Troponin High Sensitivity; Complete Time: 04:09 sp4 01/17 19:47 Order name: XRAY Chest (1 view); Complete Time: 21:13 kb 01/17 19:47 Order name: EKG; Complete Time: 19:48 kb 01/17 23:46 Order name: EKG; Complete Time: 23:46 sp4 01/17 19:47 Order name: Cardiac monitoring; Complete Time: 19:52 kb 01/17 19:47 Order name: EKG - Nurse/Tech; Complete Time: 19:52 kb 01/17 19:47 Order name: IV Saline Lock; Complete Time: 19:52 kb 01/17 19:47 Order name: Labs collected and sent; Complete Time: 19:52 kb 01/17 19:47 Order name: O2 Per Protocol; Complete Time: 19:52 kb 01/17 19:47 Order name: O2 Sat Monitoring; Complete Time: 19:52 kb 01/17 23:46 Order name: EKG - Nurse/Tech; Complete Time: 23:59 sp4 01/18 02:10 Order name: NPO; Complete Time: 02:10 sp4 EC/22 21:14 Rate is 58 beats/min. Rhythm is regular, Sinus bradycardia. QRS [place] is Normal. NM sp4 interval is prolonged. QRS interval is normal. QT interval is normal. No Q waves. T waves are Normal. No ST changes noted. Clinical impression: No evidence of ischemia. Interpreted by me. Reviewed by me. Administered Medications: 01/18 00:10 Drug: Nitroglycerin Transdermal Ointment 2 % 1 inches Transdermal once Route: cp4 Transdermal; Site: anterior chest wall; 00:44 Follow up: Response: No adverse reaction cp4 00:18 Not Given (Other Intervention Used): Heparin (MA Drip) - ([id number] units, [id number] lg3 ml) 12 units/kg/hr IV at calculated rate Per protocol; Max initial rate 1000 units/hr 00:20 Not Given (Physician Discretion): Heparin (MA-Bolus with thrombolytic) - [id number] lg3 units/kg IVP once; Max 4000 units 00:42 Drug: Heparin (MA Drip) 12 units/kg/[place] - ([place] [address] units, D5W IV 500 ml) IV at cp4 calculated rate Per protocol; Max initial rate 1000 units/hr {Co-Signature: br2 (Mary Kam RN).} Route: IV; Rate: calculated rate; Site: right antecubital; 04:53 Follow up: IV Status: Infusion continued upon transfer cp4 00:42 Drug: Heparin (MA-Bolus with thrombolytic) - HEParin IVP 60 units/kg IVP once; Max 5000 cp4 units {Co-Signature: br2 (Mary Kam RN).} Route: IVP; Site: right antecubital; 01:15 Follow up: Response: No adverse reaction cp4 02:18 Drug: hydrALAZINE IVP 20 mg IVP once Route: IVP; Site: left antecubital; jb4 02:48 Follow up: Response: No adverse reaction; Blood pressure is lowered cp4 02:48 Drug: morphine IVP or IV 4 mg IVP once over 4 mins Route: IVP; Infused Over: 4 mins; cp4 Site: left antecubital; 03:22 Follow up: Response: No adverse reaction cp4 02:48 Drug: Ondansetron IVP 4 mg IVP once; over 2 minutes Route: IVP; Site: left antecubital; cp4 03:22 Follow up: Response: No adverse reaction cp4 03:21 Drug: NS 0.9% IV 1000 ml IV at 1000 ml once; to be given as a bolus over 60 minutes lg3 Route: IV; Rate: 1000 ml; Site: left antecubital; 04:52 Follow up: Response: No adverse reaction; IV Status: Completed infusion cp4 03:45 Drug: amiodarone IVPB 150 mg 100 ml IVPB once over 10 mins; (mix in D5W) Volume: 100 cp4 ml; Route: IVPB; Infused Over: 10 mins; Site: left antecubital; 04:04 Follow up: IV Status: Completed infusion cp4 04:04 Drug: amiodarone IVPB 900 mg, D5W IV 500 ml IVPB at 1 mg/min continuous; for 6 hrs, cp4 then change to 0.5 mg/min Route: IVPB; Rate: 1 mg/min; Site: left antecubital; 04:53 Follow up: IV Status: Infusion continued upon transfer cp4 Disposition Summary: 01/19/24 02:18 Transfer Ordered Notes: Transfer Location: [facility] sp4 Reason: Higher level of care sp4 Condition: Stable sp4 Problem: new sp4 Symptoms: have improved sp4 Accepting Physician: [facility] Attending (01/19/24 04:56) cp4 Diagnosis - Unstable angina sp4 - Essential (primary) hypertension sp4 Forms: - Medication Reconciliation Form sp4 - SBAR form sp4 Signatures: Dispatcher [employer] Taylor Acevedo FNP-C FNP-Darin Dutta RN RN jb4 Kirti Bermudez RN RN lg3 Felipe Chavarria MD MD sp4 Yovana Chaudhary cp4 Mary Kam RN br2 Corrections: (The following items were deleted from the chart) 01/17 19:56 19:55 PROTIME (+INR)+COAG.LAB.BRZ ordered. EDMS EDMS 20:35 20:07 HEPATIC FUNCTION+C.LAB.BRZ ordered. EDMS EDMS 20:35 20:07 LIPASE+C.LAB.BRZ ordered. EDMS EDMS 20:35 20:07 C-REACTIVE PROTEIN+C.LAB.BRZ ordered. EDMS EDMS 21:55 21:55 Troponin High Sensitivity+C.LAB.BRZ ordered. EDMS EDMS 01/18 04:56 02:18 [facility] Attending sp4 cp4
[2024-01-19] MEDS ORDERED: MORPHINE 4 MG/ML SYR ONE (02:43)
[2024-01-19] MEDS ORDERED: ONDANSETRON 4 MG/2 ML VIAL ONE (02:43)
[2024-01-19] MEDS ORDERED: NA CHLORIDE 0.9% 1,000 ML ONE (03:11)
[2024-01-19] MEDS ORDERED: AMIODARONE IN DEXTROSE,ISO-OSM 360 MG/200 ML BAG IV ONE (03:33)
[2024-01-19] MEDS ORDERED: AMIODARONE HCL 150 MG/3 ML INJ IV ONE (03:33)
[2024-01-19] MEDS ORDERED: D5W 100 ML IV ONE (03:34)
[2024-01-19 11:59] VITALS: TEMP 98.5
[2024-01-19 12:29] VITALS: O2SAT 97
[2024-01-19 12:30] VITALS: BP 179/69
--- NOTE | 2024-01-20 12:20 | EKG ---
Test Date: 2024-01-18 Test Time: 23:40:13 Community Health Representative: ANASTACIO MEASUREMENT RESULTS: Intervals: Rate: 55 AK: 236 QRSD: 110 QT: 422 QTc: 403 [place]: P: 26 AK: 236 QRS: -6 T: 117 INTERPRETIVE STATEMENTS: Sinus bradycardia with 1st degree AV block Left ventricular hypertrophy with repolarization abnormality Abnormal ECG Compared to ECG 01/18/2024 19:37:20 Left ventricular hypertrophy now present Early repolarization now present ST (T wave) deviation no longer present Possible ischemia no longer present Electronically Signed On 01-20-24 12:15:50 CDT by Cuauhtemoc Mcarthur
--- NOTE | 2024-01-20 12:20 | EKG ---
Test Date: 2024-01-19 Test Time: 02:37:35 [place] Band Sawyer: ANASTACIO MEASUREMENT RESULTS: Intervals: Rate: 85 CO: 208 QRSD: 112 QT: 328 QTc: 390 [place]: P: 63 CO: 208 QRS: 29 T: 254 INTERPRETIVE STATEMENTS: Normal sinus rhythm Left ventricular hypertrophy with repolarization abnormality Abnormal ECG Compared to ECG 01/18/2024 23:40:13 Sinus bradycardia no longer present First degree AV block no longer present Electronically Signed On 01-20-24 12:15:39 CDT by Cuauhtemoc Mcarthur
--- NOTE | 2024-01-20 12:20 | EKG ---
Test Date: 2024-01-18 Test Time: 19:37:20 Kindergarten Paraprofessional: ARLETH MEASUREMENT RESULTS: Intervals: Rate: 58 VA: 216 QRSD: 98 QT: 404 QTc: 396 [place]: P: 49 VA: 216 QRS: 29 T: 94 INTERPRETIVE STATEMENTS: Sinus bradycardia with 1st degree AV block ST & T wave abnormality, consider lateral ischemia Abnormal ECG Compared to ECG 05/20/2023 17:04:31 ST (T wave) deviation now present Possible ischemia now present Sinus rhythm no longer present Sinus arrhythmia no longer present Myocardial infarct finding no longer present Electronically Signed On 01-20-24 12:16:15 CDT by Cuauhtemoc Mcarthur
== END 2024-01-19 04:56 | disposition short-term general hospital (02) ==
LOC: ER 19:30
DX: I20.0 Unstable angina (principal); I10 Essential (primary) hypertension; I25.2 Old myocardial infarction; Z79.01 Long term (current) use of anticoagulants
CPT/HCPCS: 93005 ×3; 85025; 80048; 36415; 83735; 85610; 80076; 85730; 84484 ×4; 83690; 83880; 86140; 71045; J1644; J0282 ×2; J0360; J2405; J7030

== ENCOUNTER 2024-02-24 15:37 | Inpatient (IN) | payer OTHER, MEDICARE ==
[2024-02-24 16:19] LABS: Absolute Lymphocytes (CBC) 0.7 K/uL (0.7-4.9); Absolute Monocytes 1.1 K/uL (0.1-1.3); Absolute Neutrophil 10.5 K/uL (1.8-8.0); Basophils % 0.2 % (0-1.3); Eosinophils % 0.3 % (0-4.4); Hematocrit 35.7 % (39.6-49.0); Hemoglobin 12.1 g/dL (13.6-17.9); Lymphocytes % 5.4 % (15.3-44.8); MCH 32.8 pg (27.0-35.0); MCHC 33.8 g/dL (32.0-36.0); MCV 96.9 fL (80-100); MPV 8.5 fL (7.6-11.3); Monocytes % 9.2 % (3.3-12.3); Neutrophils % 84.9 % (41.7-73.7); Nucleated Red Blood Cells % 0.1 % (0-0); Platelets 177 thou/uL (152-406); RBC Red Blood Cell Count 3.68 M/uL (4.33-5.43); Red Cell Distribution Width 14.4 % (12.1-15.2)
[2024-02-24 16:25] LABS: PT Prothrombin Time 10.4 SECONDS (9.4-12.5); PTT, Activated Partial Thromb 31.4 SECONDS (24.3-36.9); Protime INR 0.93
[2024-02-24 16:30] LABS: Specific Gravity 1.024 (1.005-1.030); Sqamous Epithelial <5 /HPF (None Seen); Urine Bacteria <20 /HPF (<20); Urine Bilirubin NEGATIVE (Negative); Urine Blood Negative (Negative); Urine Clarity Turbid (Clear); Urine Color Yellow (Yellow); Urine Crystals Unidentified Few /HPF (None Seen); Urine Culture Reflex Order REFLEXED; Urine Glucose NEGATIVE (Negative); Urine Ketones NEGATIVE (Negative); Urine Microscopic Reflex YN ORDER UMIC; Urine Mucus 1+ /HPF (None Seen); Urine Nitrite NEGATIVE (Negative); Urine Protein TRACE (Negative); Urine Urobilinogen 1+ (Normal); Urine WBC 20-50 /HPF (<5); Urine WBC Clump Rare /HPF (None Seen); Urine Yeast (Budding) Occasional /HPF (None Seen); Urine pH 6.5 (5.0-7.0)
[2024-02-24 16:37] LABS: Albumin 4.2 g/dL (3.4-5.0); Albumin/Globulin Ratio 1.3 (1.1-1.8); Anion Gap 10.6 mEq/L (5.0-15.0); Bilirubin Total 0.5 mg/dL (0.2-1.0); Globulin 3.3 g/dL (2.3-3.5); Potassium 3.6 mEq/L (3.5-5.1); Protein, Total 7.5 g/dL (6.4-8.2)
--- NOTE | 2024-02-24 16:41 | ER ---
Nurse's Notes [facility] Name: Eleuterio Baird Age: 73 yrs Sex: Male : 1950 Arrival Date: 02/24/2024 Time: 15:37 Bed 6 Private MD: Diagnosis: UTI/ Urinary tract infection, site not specified;Muscle weakness (generalized);Multiple sclerosis Presentation: 02/23 15:54 Chief complaint: Spouse and/or significant other states: patient started having ap3 abnormal urination yesterday. Coronavirus screen: At this time, the client does not indicate any symptoms associated with coronavirus-19. Ebola Screen: No symptoms or risks identified at this time. Initial Sepsis Screen: Does the patient meet any 2 criteria? No. Patient's initial sepsis screen is negative. Does the patient have a suspected source of infection? No. Patient's initial sepsis screen is negative. Risk Assessment: Do you want to hurt yourself or someone else? Patient reports no desire to harm self or others. Onset of symptoms was February 23, 2024. 15:54 Method Of Arrival: Wheelchair ap3 15:54 Acuity: SALOME 3 ap3 Triage Assessment: 15:56 General: Appears in no apparent distress. Behavior is calm, cooperative, appropriate ap3 for age. Pain: Complains of pain in pelvis. Neuro: Level of Consciousness is awake, alert, obeys commands, Oriented to person, place, time, situation, Appropriate for age. Cardiovascular: Patient's skin is warm and dry. Respiratory: Airway is patent Respiratory effort is even, unlabored, Respiratory pattern is regular, symmetrical. : Reports change in urinary frequency. Historical: - Allergies: 15:56 Amantadine; ap3 15:56 Flagyl; ap3 - PMHx: 15:56 HTN; CT; MS; Seizure; ap3 16:41 Neurogenic bladder (self caths as needed); aa5 16:52 Right sided weakness (MS); aa5 - PSHx: 16:41 heart stents; aa5 - Immunization history:: Client reports receiving the 2nd dose of the Covid vaccine. - Infectious Disease History:: Denies. - Family history:: not pertinent. - Social history:: Smoking status: Patient denies any tobacco usage or history of. - Hospitalizations: : No recent hospitalization is reported. Screenin:57 Abuse screen: Denies threats or abuse. Nutritional screening: No deficits noted. ap3 Tuberculosis screening: No symptoms or risk factors identified. 16:00 [facility] ED Fall Risk Assessment (Adult) History of falling in the last 3 months, aa5 including since admission Confusion or Disorientation No (0 pts) Intoxicated or Sedated No (0 pts) Impaired Gait Yes (1 pt) Mobility Assist Device Used Yes (1 pt) Altered Elimination Yes (1 pt) Score/Fall Risk Level 3 or more points = High Risk Oriented to surroundings, Maintained a safe environment, Educated pt \T\ family on fall prevention, incl call for assistance when getting out of bed, Assessed \T\ reinforced patient's understanding of fall precautions, Hourly rounding (assess needs \T\ fall precautionary measures) done. Assessment: 16:00 General: Appears comfortable, Behavior is calm, cooperative. Pain: Denies pain. Neuro: aa5 Level of Consciousness is awake, alert, obeys commands, Oriented to person, place, time, situation, Reports right sided weakness from hx of MS, reports generalized weakness since yesterday. . Cardiovascular: Heart tones S1 S2 present Rhythm is irregular. Respiratory: Airway is patent Respiratory effort is even, unlabored, Respiratory pattern is regular, symmetrical. GI: Abdomen is round non-distended, Bowel sounds present X 4 quads. Abd is soft and non tender X 4 quads. : Parent/caregiver report the patient having abnormal urinary pattern (not pt's baseline), pt's reports she normally straight caths pt BID or as needed throughout the day, pt is able to void at times. EENT: No signs and/or symptoms were reported regarding the EENT system. Derm: Skin is pink, warm \T\ dry. Musculoskeletal: Pt uses walker and has abnormal gait due to MS. 16:51 Reassessment: Pt resting with eyes closed, respirations are even and unlabored. . aa5 17:09 Reassessment: Faxed report to admitting nurse . aa5 17:11 Reassessment: Pt sleeping. . aa5 17:45 Reassessment: Patient is alert, oriented x 3, equal unlabored respirations, skin aa5 warm/dry/pink. Vital Signs: 15:54 BP 115 / 58; Pulse 81; Resp 16; Temp 98.3; Pulse Ox 98% on R/A; Weight 74.84 kg; ap3 17:06 BP 118 / 50; Pulse 68; Resp 16 S; Pulse Ox 97% on R/A; aa5 ED Course: 15:41 Patient arrived in ED. im 15:42 Chico Mcleod MD is Attending Physician. rn 15:47 Rosario Curtis, HARPER is Primary Nurse. aa5 15:56 Triage completed. ap3 15:57 Arm band placed on right wrist. ap3 15:57 Patient has correct armband on for positive identification. Adult w/ patient. Pulse ox ap3 on. NIBP on. 16:00 Client placed on continuous cardiac and pulse oximetry monitoring. NIBP monitoring aa5 applied. case monitor on. Pulse ox on. NIBP on. 16:00 Patient has correct armband on for positive identification. Bed in low position. Call aa5 light in reach. Side rails up X2. Adult w/ patient. 16:09 First set of blood cultures drawn by me. aa5 16:10 Missed attempt(s): 20 gauge in left antecubital area. Bleeding controlled, band aid aa5 applied, catheter tip intact. 16:12 Inserted saline lock: 22 gauge in left forearm, using aseptic technique. Flushed with aa5 10 mL NS. 16:20 EKG done, by ED staff, reviewed by Chico Mcleod MD. aa5 16:22 Urine collected: clean catch specimen. aa5 16:25 Second set of blood cultures drawn by me. aa5 16:40 Maddie Parham MD is Hospitalizing Provider. rn 16:59 No provider procedures requiring assistance completed. aa5 17:45 Patient admitted, IV remains in place. aa5 Administered Medications: 16:51 Drug: Rocephin IV 1 grams IV at calculated rate once; Given slow IV push per pharmacy aa5 instructions Route: IV; Rate: calculated rate; Site: left forearm; 16:55 Follow up: Response: No adverse reaction; IV Status: Completed infusion aa5 16:51 Drug: NS 0.9% IV 500 ml IV at bolus once; to be given as a bolus over 30 minutes Route: aa5 IV; Rate: bolus; Site: left forearm; 17:21 Follow up: IV Status: Completed infusion; IV Intake: 500ml aa5 Medication: 16:58 VIS not applicable for this client. aa5 Intake: 17:21 IV: 500ml; Total: 500ml. aa5 Outcome: 16:41 Decision to Hospitalize by Provider. rn 17:45 Patient left the ED. aa5 17:45 Admitted to Tele accompanied by nurse, family with patient, via stretcher, with chart, aa5 17:45 Condition: stable 17:45 Instructed on the need for admit, Demonstrated understanding of instructions, Signatures: Chico Mcleod MD MD rn Calderon, Audri RN RN aa5 Sherlyn Canales RN RN ap3 Lynsey Loredo Corrections: (The following items were deleted from the chart) 18:05 18:02 Patient left the ED. ap3 aa5
--- NOTE | 2024-02-24 16:41 | EDPHYS ---
Physician Documentation [facility] Name: Eleuterio Baird Age: 73 yrs Sex: Male : 1950 Arrival Date: 02/24/2024 Time: 15:37 Bed 6 Private MD: ED Physician Chico Mcleod HPI: 02/23 15:53 This 73 yrs old Male presents to ER via Unassigned with complaints of Urinary Problem. rn 15:53 The patient presents with urinary symptoms, urinary frequency. Onset: The rn symptoms/episode began/occurred at an unknown time. Modifying factors: The symptoms are alleviated by nothing, the symptoms are aggravated by nothing. Severity of symptoms: At their worst the symptoms were mild, in the emergency department the symptoms are unchanged. The patient has experienced similar episodes in the past. 15:53 Family member reports difficulty urinating, urinary frequency and weakness. Patient has rn MS and neurogenic bladder, has had multiple urinary tract infections in the past and this seems consistent with previous ones given that he is weaker and having more difficulty walking.. Historical: - Allergies: 15:56 Amantadine; ap3 15:56 Flagyl; ap3 - PMHx: 15:56 HTN; [place]; MS; Seizure; ap3 16:41 Neurogenic bladder (self caths as needed); aa5 16:52 Right sided weakness (MS); aa5 - PSHx: 16:41 heart stents; aa5 - Immunization history:: Client reports receiving the 2nd dose of the Covid vaccine. - Infectious Disease History:: Denies. - Family history:: not pertinent. - Social history:: Smoking status: Patient denies any tobacco usage or history of. - Hospitalizations: : No recent hospitalization is reported. ROS: 15:53 Constitutional: Negative for fever, chills, and weight loss, Cardiovascular: Negative rn for chest pain, palpitations, and edema, Respiratory: Negative for shortness of breath, cough, wheezing, and pleuritic chest pain, Abdomen/GI: Negative for abdominal pain, nausea, vomiting, diarrhea, and constipation, : + urinary frequency MS/Extremity: Negative for injury and deformity, Neuro: Negative for headache, numbness, tingling, and seizure, Exam: 15:53 Constitutional: This is a well developed, well nourished patient who is awake, alert, rn and in no acute distress. Cardiovascular: Regular rate and rhythm. No pulse deficits. Abdomen/GI: Soft, non-tender 16:23 ECG was reviewed by the Attending Physician. rn Vital Signs: 15:54 BP 115 / 58; Pulse 81; Resp 16; Temp 98.3; Pulse Ox 98% on R/A; Weight 74.84 kg; ap3 17:06 BP 118 / 50; Pulse 68; Resp 16 S; Pulse Ox 97% on R/A; aa5 MDM: 15:42 Medical Screening Exam initiated rn 16:39 Differential diagnosis: UTI, urinary retention, prostatitis, urethritis. Data reviewed: rn vital signs, nurses notes, lab test result(s), and as a result, I will admit patient. Consideration of Admission/Observation Patient was admitted/placed on observation. Escalation of care including admission/observation considered. Counseling: I had a detailed discussion with the patient and/or guardian regarding the historical points, exam findings, and any diagnostic results supporting the discharge/admit diagnosis, lab results, the need for further work-up and treatment in the hospital. ED course: concerned because not at baseline, UA shows possible urinary tract infection, no other clear etiology for urinary symptoms and increase in weakness. concerned because states UAs have come back negative and culture shows infection in the past. Will admit to Dr. barger for further care and culture follow-up.. 02/23 15:42 Order name: Urinalysis w/ reflexes; Complete Time: 16:33 02/23 15:51 Order name: Blood Culture Adult (2) rn 02/23 15:51 Order name: CBC with Diff; Complete Time: 16:21 rn 02/23 15:51 Order name: CMP; Complete Time: 16:39 rn 02/23 15:51 Order name: Lactate w/ 2H reflex if indic.; Complete Time: 16:39 rn 02/23 15:51 Order name: Protime (+inr); Complete Time: 16:33 rn 02/23 15:51 Order name: Ptt, Activated; Complete Time: 16:33 rn 02/23 16:33 Order name: Urine Culture EDMD 02/23 15:51 Order name: EKG; Complete Time: 15:52 rn 02/23 15:51 Order name: Cardiac monitoring; Complete Time: 16:14 rn 02/23 15:51 Order name: EKG - Nurse/Tech; Complete Time: 16:40 rn 02/23 15:51 Order name: IV Saline Lock - Large Bore; Complete Time: 16:13 rn 02/23 15:51 Order name: Labs collected and sent; Complete Time: 16:13 rn 02/23 15:51 Order name: O2 Per Protocol; Complete Time: 16:13 rn 02/23 15:51 Order name: O2 Sat Monitoring; Complete Time: 16:13 rn 02/23 15:51 Order name: Vital Signs; Complete Time: 16:13 rn EC:23 Rate is 78 beats/min. Rhythm is irregular. QRS [place] is Normal. TX interval is normal. rn QRS interval is normal. QT interval is normal. No Q waves. T waves are Normal. No ST changes noted. Clinical impression: NSR w/ Non-specific ST/T Changes. Interpreted by me. Reviewed by me. Administered Medications: 16:51 Drug: Rocephin IV 1 grams IV at calculated rate once; Given slow IV push per pharmacy aa5 instructions Route: IV; Rate: calculated rate; Site: left forearm; 16:55 Follow up: Response: No adverse reaction; IV Status: Completed infusion aa5 16:51 Drug: NS 0.9% IV 500 ml IV at bolus once; to be given as a bolus over 30 minutes Route: aa5 IV; Rate: bolus; Site: left forearm; 17:21 Follow up: IV Status: Completed infusion; IV Intake: 500ml aa5 Disposition Summary: 02/24/24 16:41 Hospitalization Ordered Notes: Hospitalization Status: Inpatient Admission rn Provider: Maddie Barger rn [facility] rn Condition: Stable rn Problem: new rn Symptoms: are unchanged rn Bed/Room Type: Standard rn Room Assignment: 201(02/24/24 16:58) bc6 Diagnosis - UTI/ Urinary tract infection, site not specified rn - Muscle weakness (generalized) rn - Multiple sclerosis rn Forms: - Medication Reconciliation Form rn - SBAR form rn - Leadership Thank You Letter rn Signatures: Dispatcher Chico Lea MD MD rn Calderon, Audri RN RN aa5 Sherlyn Canales RN RN ap3 Elizabeth Thompson bc6 Corrections: (The following items were deleted from the chart) 16:14 15:51 Payton ordered. rn aa5 16:42 15:51 Markus ordered. rn aa5 16:58 16:41 rn bc6
[2024-02-24] MEDS ORDERED: CEFTRIAXONE 1000 MG/VIAL ONE (16:43)
[2024-02-24] MEDS ORDERED: NA CHLORIDE 0.9% 500 ML ONE (16:44)
[2024-02-24 18:25] VITALS: BMI 25.8
[2024-02-24] MEDS ORDERED: ONDANSETRON 4 MG/2 ML VIAL IV PRN (19:19)
[2024-02-24] MEDS: ATORVASTATIN 40 MG TAB PO SCH (21:55)
[2024-02-24] MEDS: CLOPIDOGREL 75 MG TABLET PO SCH (21:55)
[2024-02-24] MEDS: GABAPENTIN 300 MG CAP PO SCH (21:56)
[2024-02-24] MEDS: NA CHLORIDE 0.9% 1,000 ML IV SCH (21:56)
[2024-02-25 04:52] LABS: Absolute Eosinophils 0.1 K/uL (0-0.5); Absolute Lymphocytes (CBC) 0.8 K/uL (0.7-4.9); Absolute Monocytes 0.7 K/uL (0.1-1.3); Absolute Neutrophil 7.6 K/uL (1.8-8.0); Basophils % 0.2 % (0-1.3); Eosinophils % 0.6 % (0-4.4); Hematocrit 30.6 % (39.6-49.0); Hemoglobin 10.2 g/dL (13.6-17.9); Lymphocytes % 8.3 % (15.3-44.8); MCH 32.7 pg (27.0-35.0); MCHC 33.3 g/dL (32.0-36.0); MCV 98.1 fL (80-100); MPV 8.8 fL (7.6-11.3); Neutrophils % 82.9 % (41.7-73.7); Platelets 130 thou/uL (152-406); RBC Red Blood Cell Count 3.12 M/uL (4.33-5.43); Red Cell Distribution Width 14.3 % (12.1-15.2)
[2024-02-25 05:01] LABS: Anion Gap 7.5 mEq/L (5.0-15.0); Potassium 3.5 mEq/L (3.5-5.1)
[2024-02-25] MEDS: LEVOTHYROXINE SOD 0.025 MG TAB PO SCH (06:26)
[2024-02-25] MEDS: GABAPENTIN 300 MG CAP PO SCH (08:55)
[2024-02-25] MEDS: ASPIRIN 81 MG CHEWABLE TABLET PO SCH (08:55)
[2024-02-25] MEDS: METOPROLOL XL 25 MG TAB PO SCH (08:56)
[2024-02-25] MEDS: CEFTRIAXONE 1,000 MG in NA CHLORIDE 0.9% 50 ML IVPB SCH (08:56)
[2024-02-25] MEDS: OXYBUTYNIN ER 5 MG TAB PO SCH (08:56)
[2024-02-25] MEDS: FINASTERIDE 5 MG TAB PO SCH (08:56)
[2024-02-25] MEDS: BRIMONIDINE OPTH SCH (09:00)
[2024-02-25] MEDS ORDERED: LATANOPROST 0.005% 2.5ML OPTH OPTH SCH (09:00)
[2024-02-25] MEDS: lisinopriL 5 MG TAB PO SCH (09:42)
[2024-02-25] MEDS: carBAMazepine 200 MG TAB ONE (09:42)
--- NOTE | 2024-02-25 09:47 | EKG ---
Test Date: 2024-02-24 Test Time: 16:19:02 [place]: SAHRON MEASUREMENT RESULTS: Intervals: Rate: 78 WA: 256 QRSD: 102 QT: 356 QTc: 405 [place]: P: 76 WA: 256 QRS: 27 T: 58 INTERPRETIVE STATEMENTS: Sinus rhythm with marked sinus arrhythmia with 1st degree AV block Nonspecific ST abnormality Abnormal ECG Compared to ECG 01/19/2024 02:37:35 First degree AV block now present ST (T wave) deviation now present Left ventricular hypertrophy no longer present Early repolarization no longer present Electronically Signed On 02-25-24 09:47:01 WASH BARREL LEADER by Brown Garzon
--- NOTE | 2024-02-25 11:29 | HP ---
Date of Admission: 02/25/2024 Chief Complaint: Leg weakness and burning on urination and frequent urination. History Of Present Illness: This is a 73-year-old pleasant male patient, who lives at home, came into emergency room yesterday with significant weakness of his legs associated with burning sensation on urination and frequent urination. Denies any fever, but has had some chills, and denies any blood in urine. His legs really gets weak when he has any infection like this and that is what they were concerned about, so brought him to emergency room yesterday after he was evaluated, he was admitted to the hospital. Allergies: ALLERGIC TO METRONIDAZOLE CAUSING HALLUCINATION AND AMANTADINE CAUSING SEIZURES. Medications: List reviewed. Review of Systems: Constitutional: As mentioned above. Genitourinary: As mentioned above. All other systems reviewed and negative. Past Medical History: Significant for seizure disorder, multiple sclerosis, trigeminal neuralgia, hypothyroidism, hypertension, hyperlipidemia, coronary artery disease, non-STEMI on June 30, 2022; benign prostatic hypertrophy, pancytopenia, and hyponatremia. Past Surgical History: Tonsillectomy; coronary artery stent placement in November 09, 2011, June 30, 2022, January 19, 2024, and January 31, 2024. The patient also had cholecystectomy and appendectomy in the past. Family History: Father , had colon cancer. Mother , had myocardial infarction, hypertension and kidney disorder. Brother with diabetes and hypertension. Social History: Prior history of smoking, not at present time. Use of alcohol rarely. Physical Examination: Vital Signs: This morning, temperature 97.8, pulse 66, respiratory rate 14, blood pressure 166/82, oxygen saturation 95%, height 5 feet 7 inches, weight 165 pounds. General: Awake, alert, oriented, not in distress. HEENT: Head atraumatic, normocephalic. Conjunctivae nonerythematous. Sclerae white. Mouth, no thrush or edema noted. Ears/Nose, no mass, lesion, discharge noted. Neck: Supple. No JVD, lymph nodes, bruit, thyromegaly noted. Lungs: Bilateral good equal air entry. Clear to auscultation. No rhonchi. No rales. Heart: Normal heart sounds, no murmur or gallop. Abdomen: Soft, bowel sounds normal. No guarding, rigidity, tenderness, mass, hepatosplenomegaly, distention, or bruit noted. Extremities: No leg edema. No calf tenderness. Skin: No rash, ulcer, cellulitis. Lymphatics: No lymph node enlargement in neck, supraclavicular, infraclavicular region. Neuro: No focal neurological deficit. Chest: Unremarkable. External Genitalia: Deferred. Rectal: Deferred. Laboratory Data: Yesterday, white count 12.4, hemoglobin 12.1, platelets 177. Today, white count 11.2, hemoglobin 10.2, and platelet count 130. Chemistry yesterday, sodium 134, potassium 3.6, chloride 98, bicarb 29, BUN 18, creatinine 0.61, glucose 101. Liver function tests unremarkable. This morning, sodium 135, potassium 3.5, chloride 103, bicarb 28, BUN 14, creatinine 0.44, glucose 105. Urinalysis, leukocyte esterase 250, RBC 5-10, WBC 20-50. Impression: 1. Urinary tract infection. 2. Multiple sclerosis. 3. Seizure disorder. 4. Coronary artery disease. 5. Hypertension. 6. Hyperlipidemia. 7. Benign prostatic hypertrophy. 8. Hyponatremia. 9. Anemia, unspecified. 10. Thrombocytopenia. Plan: We will go ahead and admit the patient to hospital for further evaluation and management of this problem. Urine culture was done in the emergency room and empiric antibiotic was started. We will continue this and follow up on urine culture. Once the final result is available, we will decide about culture specific antibiotic. The patient's overall condition has improved with overnight stay in the hospital. We will continue current management and I will see him tomorrow for followup. The patient is appropriate for inpatient and is expected to spend 2 midnights in hospital. For his coronary artery disease, we will continue his antiplatelet therapy. For his hypertension, we will continue his antihypertensive medication, which is lisinopril and metoprolol and, monitor blood pressure if necessary, adjust medication. For his hyperlipidemia, we will continue his statin therapy per order and no need for further intervention. The patient is on carbamazepine for his seizure disorder. We will continue that as he takes it at home. Total time spent was 85 minutes including review of last office visit record from February 10, 2024, communication with the emergency room physician, review of emergency room visit records, and performing today's evaluation and management. JESS/MODL Voice ID: [id number] MTDD
[2024-02-25] MEDS: carBAMazepine 200 MG TAB PO SCH ×2 (12:15→21:14)
[2024-02-25] MEDS: ACETAMINOPHEN 500 MG TAB PO PRN (16:48)
[2024-02-25] MEDS: SODIUM CHLORIDE 1 GM TAB PO SCH (16:49)
[2024-02-25] MEDS: OPTH OPTH SCH (21:00)
[2024-02-25] MEDS: XALATAN 0.005% OPTH SCH (21:00)
[2024-02-25] MEDS ORDERED: carBAMazepine 200 MG TAB PO SCH (22:00)
[2024-02-26] MEDS: levoFLOXacin 500 MG TAB PO ONE (09:08)
[2024-02-26 10:28] VITALS: O2SAT 94
--- NOTE | 2024-02-26 11:01 | RAD REPORT ---
EXAMINATION: US RETROPERITONEUM CLINICAL INDICATION: UTI TECHNIQUE: Real-time ultrasonography of the abdomen was performed. COMPARISON: No prior exam. FINDINGS: RIGHT KIDNEY: Right renal length measurement: 11.9 cm. Normal in echogenicity and size. No calculus, solid mass or hydronephrosis. LEFT KIDNEY: Left renal length measurement: 12.5 cm. Normal in echogenicity and size. No calculus, so lid mass or hydronephrosis. 9 mm left renal cortical cyst. ADDITIONAL FINDINGS: None. IMPRESSION: No hydronephrosis. Subcentimeter left renal cyst.
--- NOTE | 2024-02-26 12:08 | DS ---
Date of Discharge: 02/26/2024 Disposition: Discharged to go home. Physical Examination: HEENT: Unremarkable. Lungs: Clear to auscultation. Heart: Sounds normal. Abdomen: Soft. Bowel sounds normal. No guarding, rigidity, tenderness, or distention. Extremities: No leg edema. Hospital Course: This is a 73-year-old pleasant male patient who came into emergency room with complaints of weakness of legs and burning sensation on urination. Please see dictated H and P for more information. After patient was evaluated in the emergency room, he was admitted to the hospital with urinary tract infection. His urine culture and blood culture were sent from emergency room and he was started on empiric antibiotic which was ceftriaxone 1 g IV every 12 hours. His home medications were continued. Overall, patient's leg weakness has improved significantly. He feels much better, almost back to his normal self and his dysuria also has improved. In last 24 hours, he still has had some low-grade fever with maximum temperature of 100 degree Fahrenheit in last 24 hours. Last temperature this morning was 98.3. With that, we decided to change his antibiotic, and this morning Levaquin 500 mg p.o. x1 dose was ordered. His blood culture and urine culture has remained negative. Patient has prior history of kidney stone as describes, and in the past, he had seen Dr. Zhou which was several years ago. His last renal ultrasound from 2021 done at our hospital. I have reviewed results and was unremarkable. So what I have done is ordered another renal and bladder ultrasound today, and after that is done, we will discharge the patient to go home and I will follow up on the results on outpatient basis with the patient and family. Discharge Medications And Instructions: Continue all prior home medications. 1. Levaquin 500 mg take 1 tablet by mouth daily for 1 week. 2. Follow up at my office next week. Laboratory Data: Labs done during this hospitalization. Blood culture and urine culture remained negative. Urinalysis upon admission shows leukocytes 250, rbc 5 to 10, wbc 20 to 50. Chemistry upon admission, sodium 134, potassium 3.6, chloride 98, bicarb 29, BUN 18, creatinine 0.61, glucose 101. Liver function tests unremarkable and yesterday's white count 12.4, hemoglobin 12.1, platelets 177. Today, white count 11.2, hemoglobin 10.2, and platelet count 130. Chemistry upon admission, sodium 134, potassium 3.6, chloride 98, bicarb 29, BUN 18, creatinine 0.61, glucose 101. Liver function tests unremarkable. Yesterday, sodium 135, potassium 3.5, chloride 103, bicarb 28, BUN 14, creatinine 0.44, glucose 105. Urinalysis, leukocyte esterase 250, RBC 5-10, WBC 20-50. Final Diagnoses: 1. Urinary tract infection. 2. Anemia, unspecified. 3. Thrombocytopenia. 4. Hyponatremia. 5. Multiple sclerosis. 6. Seizure disorder. 7. Coronary artery disease. 8. Hypertension. 9. Hyperlipidemia. 10. Benign prostatic hypertrophy. Total time spent today 40 minutes. JESS/MODL Voice ID: [id number] Report ID: [id number] MTDD
[2024-02-26 13:23] VITALS: BP 136/56; TEMP 97.8
--- NOTE | 2024-03-01 09:04 | RAD REPORT ---
EXAM: URINARY BLADDER ULTRASOUND COMPARISON: None CLINICAL INDICATION: UTI TECHNIQUE: Multiplanar grayscale and color flow sonographic images were obtained through the pelvis for evaluation of the bladder.. FINDINGS: Unremarkable appearance of the bladder. The bladder is only partially distended. IMPRESSION: Incompletely distended but grossly unremarkable bladder.
== END 2024-02-26 13:24 | disposition home or self-care (01) | DRG 690 ==
LOC: ER 15:37 → ERHOLD 15:41 → 2ND 17:34
PROVIDERS: ADMIT Internal Medicine; ATTEND Internal Medicine
DX: N39.0 Urinary tract infection, site not specified (principal); E87.1 Hypo-osmolality and hyponatremia; I10 Essential (primary) hypertension; G35 Multiple sclerosis; E03.9 Hypothyroidism, unspecified; D69.6 Thrombocytopenia, unspecified; E78.5 Hyperlipidemia, unspecified; D64.9 Anemia, unspecified; N31.9 Neuromuscular dysfunction of bladder, unspecified; G40.909 Epilepsy, unspecified, not intractable, without status epilepticus; N40.1 Benign prostatic hyperplasia with lower urinary tract symptoms; R39.15 Urgency of urination; I25.10 Atherosclerotic heart disease of native coronary artery without angina pectoris; I25.2 Old myocardial infarction; Z95.5 Presence of coronary angioplasty implant and graft; Z88.8 Allergy status to other drugs, medicaments and biological substances; Z90.49 Acquired absence of other specified parts of digestive tract
CPT/HCPCS: 36415; 76770; 76857; 80048; 80053; 81001; 83605; 85025; 85610; 85730; 87040; 87086; 87088; 93005; 96374; 99285; J0696; J7030; J7040

== ENCOUNTER 2024-03-08 15:57 | Emergency (ER) | payer OTHER, MEDICARE ==
--- NOTE | 2024-03-08 16:53 | RAD REPORT ---
EXAM: CT brain without contrast HISTORY: Fall injury, laceration forehead COMPARISON: 05/20/2023 TECHNIQUE: Multiple contiguous axial images were obtained and a CT of the brain without contrast. Sag ittal and coronal reformats were performed. One or more of the following dose reduction techniques were used: Automated exposure control, adjust ment of the mA and/or kV according to patient size, and/or iterative reconstruction. FINDINGS: No evidence of hydrocephalus, intracranial hemorrhage, or extra-axial fluid collection. Mild brain atrophy with mild periventricular and deep white matter chronic microvascular ischemic ch anges present. Prominent cerebellar atrophy. No evidence of midline shift or areas of brain edema. The calvarium is intact. The visualized paranasal sinuses and mastoid air cells are essentially clear . Small scalp hematoma left zygomatic region. IMPRESSION: No evidence of acute intracranial abnormality. Prominent cerebellar atrophy.
[2024-03-08] MEDS ORDERED: LIDOCAINE 2% MPF 5 ML VIAL ONE (17:25)
[2024-03-08] MEDS ORDERED: DERMABOND SKIN ADHESIVE TOP ONE (19:23)
--- NOTE | 2024-03-08 19:33 | EDPHYS ---
Physician Documentation [facility] Name: Eleuterio Baird Age: 73 yrs Sex: Male : 1950 Arrival Date: 03/08/2024 Time: 15:57 Bed 15 Private MD: ED Physician Bharathi Zaman HPI: 03/08 16:11 This 73 yrs old Male presents to ER via Wheelchair with complaints of Laceration - to pm1 left eyebrow. 16:11 The patient or guardian reports a laceration. The complaints affect the forehead and pm1 outer aspect of left eyebrow. Context of injury: resulted from a fall, He crossed his legs and tripped on his right leg while attempting to sitdown. Onset: The symptoms/episode began/occurred just prior to arrival. Associated signs and symptoms: Loss of consciousness: This patient did not experience any loss of consciousness. Pertinent negatives: the patient has not experienced a loss of conciousness, headache, neck pain. The patient has been recently seen by a physician: for apparently unrelated complaints, Patient with stent placement to bilateral aortailiac stent yesterday. Historical: - Allergies: 16:08 Amantadine; ap3 16:08 Flagyl; ap3 - PMHx: 16:08 HTN; [place]; MS; Neurogenic bladder (self caths as needed); Right sided weakness (MS); ap3 Seizure; - PSHx: 16:08 Heart Stents; ap3 - Immunization history:: Last tetanus immunization: up to date. - Infectious Disease History:: Denies. - Social history:: Smoking status: Patient denies any tobacco usage or history of. ROS: 16:11 Constitutional: Negative for fever, chills, and weight loss, Neck: Negative for injury, pm1 pain, and swelling, Cardiovascular: Negative for chest pain, palpitations, and edema, Respiratory: Negative for shortness of breath, cough, wheezing, and pleuritic chest pain, MS/Extremity: Negative for injury and deformity, Neuro: Negative for headache, weakness, numbness, tingling, and seizure, 16:11 Skin: Positive for laceration(s), of the forehead and outer aspect of left eyebrow, 16:11 All other systems are negative, Exam: 16:11 Constitutional: This is a well developed, well nourished patient who is awake, alert, pm1 and in no acute distress. 16:11 Back: No spinal tenderness. No costovertebral tenderness. Full range of motion. MS/ Extremity: Pulses equal, no cyanosis. Neurovascular intact. Full, normal range of motion. 16:11 Head/face: Noted is no obvious of injury or deformity except a laceration(s), that is linear, 4 cm(s), of the forehead and outer aspect of left eyebrow, 16:11 Cardiovascular: Exam negative for acute changes, 16:11 Respiratory: Exam negative for acute changes, 16:11 Abdomen/GI: Exam negative for acute changes, Inspection: abdomen appears normal, Palpation: abdomen is soft and non-tender, in all quadrants, 16:11 Neuro: Exam negative for acute changes, Orientation: is normal, Vital Signs: 16:11 BP 167 / 57; Pulse 65; Resp 17; Temp 98.5; Pulse Ox 99% ; Weight 74.39 kg; ap3 19:51 BP 150 / 68; Pulse 70; Resp 18; Temp 98; Pulse Ox 100% on R/A; kj2 Teddy Coma Score: 16:11 Eye Response: spontaneous(4). Motor Response: obeys commands(6). Verbal Response: pm1 oriented(5). Total: 15. Laceration: 19:30 Wound Repair of 4cm ( 1.6in ) subcutaneous laceration to left eye and forehead. Linear pm1 shaped.. Distal neuro/vascular/tendon intact. Anesthesia: Local anesthetic administered with 2 mls of 1% lidocaine. Wound prep: Extensive cleansing with hibiclenz by me, Wound irrigation with saline by me, Wound explored extensively, Copious irrigation. Skin closed with 7 5-0 Prolene using simple sutures and sterile technique. Patient tolerated well. MDM: 16:05 Medical Screening Exam initiated pm1 17:30 Data reviewed: vital signs. pm1 19:30 Counseling: I had a detailed discussion with the patient and/or guardian regarding the pm1 historical points, exam findings, and any diagnostic results supporting the discharge/admit diagnosis, radiology results, the need for outpatient follow up, suture removal in 7-10 days, to return to the emergency department if symptoms worsen or persist or if there are any questions or concerns that arise at home. 03/08 16:11 Order name: CT Head Brain wo Cont; Complete Time: 16:54 pm1 03/08 16:11 Order name: Dressing - Wound; Complete Time: 17:53 pm1 12 16:11 Order name: Gloves, Sterile; Complete Time: 17:53 pm1 12 16:11 Order name: Prolene, Sutures; Complete Time: 17:53 pm1 12 16:11 Order name: Setup Suture Tray; Complete Time: 17:53 pm1 Administered Medications: 19:54 Drug: Lidocaine Infiltration (2 %) 5 ml 5 ml Infiltration once; to bedside {Note: kj2 administered by provider.} Volume: 5 ml; Route: Infiltration; 20:12 Follow up: Response: No adverse reaction kj2 Disposition Summary: 03/08/24 19:32 Discharge Ordered Notes: Location: Home pm1 Problem: new pm1 Symptoms: have improved pm1 Condition: Stable pm1 Diagnosis - Laceration without foreign body of unspecified part of head - forehead and left pm1 eyebrow - Fall on same level from slipping, tripping and stumbling without subsequent pm1 striking against object Followup: pm1 - With: Emergency Department - When: As needed - Reason: Worsening of condition Followup: pm1 - With: Private Physician - When: 2 - 3 days - Reason: Recheck today's complaints, Continuance of care, Re-evaluation by your physician Discharge Instructions: - Discharge Summary Sheet pm1 - Head Injury, Adult pm1 - Fall Prevention in the Home, Adult pm1 - Facial Laceration pm1 Forms: - Medication Reconciliation Form pm1 - Antibiotic Education pm1 - Prescription Opioid Use pm1 - Patient Portal Instructions pm1 - Leadership Thank You Letter pm1 Signatures: Dispatcher [employer] Kane Scales, WATCH DIAL STONER WATCH DIAL STONER pm1 Sherlyn Canales, RN RN ap3 Keiko Cadet RN RN kj2
--- NOTE | 2024-03-08 19:33 | ER ---
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 patient reports being on blood thinners (plavix), but denies LOC. Coronavirus screen: At this time, the client does not indicate any symptoms associated with coronavirus-19. Ebola Screen: No symptoms or risks identified at this time. Complicating Factors: There are no complicating factors for this patient. Initial Sepsis Screen:. Initial Sepsis Screen: Does the patient meet any 2 criteria? No. Patient's initial sepsis screen is negative. Does the patient have a suspected source of infection? No. Patient's initial sepsis screen is negative. Risk Assessment: Do you want to hurt yourself or someone else? Patient reports no desire to harm self or others. Onset of symptoms was March 08, 2024 at 15:30. 16:04 Acuity: SALOME 2 ap3 16:04 Method Of Arrival: Wheelchair ap3 16:10 Mechanism of Injury: Fall from standing position. ap3 Triage Assessment: 16:09 General: Appears in no apparent distress. Behavior is calm, cooperative, appropriate ap3 for age. Pain: Complains of pain in forehead and left eye Pain began suddenly. Neuro: Level of Consciousness is awake, alert, obeys commands, Oriented to person, place, time, situation. Cardiovascular: Patient's skin is warm and dry. Respiratory: Airway is patent Respiratory effort is even, unlabored, Respiratory pattern is regular, symmetrical. Derm: Wound noted forehead and left eye. Historical: - Allergies: 16:08 Amantadine; ap3 16:08 Flagyl; ap3 - PMHx: 16:08 HTN; AK; MS; Neurogenic bladder (self caths as needed); Right sided weakness (MS); ap3 Seizure; - PSHx: 16:08 Heart Stents; ap3 - Immunization history:: Last tetanus immunization: up to date. - Infectious Disease History:: Denies. - Social history:: Smoking status: Patient denies any tobacco usage or history of. Screenin:10 Abuse screen: Denies threats or abuse. Nutritional screening: No deficits noted. ap3 Tuberculosis screening: No symptoms or risk factors identified. 18:01 [facility] ED Fall Risk Assessment (Adult) History of falling in the last 3 months, ph including since admission Yes- fall prone (multiple falls) (3 pts) Confusion or Disorientation No (0 pts) Intoxicated or Sedated No (0 pts) Impaired Gait Yes (1 pt) Mobility Assist Device Used Yes (1 pt) Altered Elimination Yes (1 pt) Score/Fall Risk Level 3 or more points = High Risk Oriented to surroundings, Maintained a safe environment, Hourly rounding (assess needs \T\ fall precautionary measures) done. Assessment: 18:01 General: Appears in no apparent distress. Behavior is calm, cooperative. Pain: Complains of pain in left eye. Neuro: Level of Consciousness is awake, alert, obeys commands, Oriented to person, place, time, situation. Cardiovascular: Capillary refill < 3 seconds in bilateral fingers Patient's skin is warm and dry. Respiratory: Airway is patent Respiratory effort is even, unlabored. Musculoskeletal: Circulation, motion, and sensation intact. Range of motion: intact in all extremities. Injury Description: Laceration sustained to left eye. 19:00 Reassessment: Patient appears in no apparent distress at this time. Patient and/or kj2 family updated on plan of care and expected duration. Pain level reassessed. Patient is alert, oriented x 3, equal unlabored respirations, skin warm/dry/pink. 19:52 Reassessment: Patient appears in no apparent distress at this time. Patient and/or kj2 family updated on plan of care and expected duration. Pain level reassessed. Patient is alert, oriented x 3, equal unlabored respirations, skin warm/dry/pink. 19:53 Injury Description: Laceration is bleeding mildy. kj2 Vital Signs: 16:11 BP 167 / 57; Pulse 65; Resp 17; Temp 98.5; Pulse Ox 99% ; Weight 74.39 kg; ap3 19:51 BP 150 / 68; Pulse 70; Resp 18; Temp 98; Pulse Ox 100% on R/A; kj2 [place] Coma Score: 16:11 Eye Response: spontaneous(4). Motor Response: obeys commands(6). Verbal Response: pm1 oriented(5). Total: 15. ED Course: 15:58 Patient arrived in ED. ra3 16:04 Kane Kirkpatrick NP is PHCP. pm1 16:05 Bharathi Zaman MD is Private Physician. pm1 16:05 Bharathi Zaman MD is Attending Physician. pm1 16:08 Triage completed. ap3 16:10 Arm band placed on right wrist. ap3 16:48 CT Head Brain wo Cont In Process Unspecified. EDMS 17:04 Patient placed in an exam room, on a stretcher. ll1 17:16 Marlene Saldaña RN is Primary Nurse. ph 18:01 Patient has correct armband on for positive identification. Bed in low position. Call ph light in reach. Side rails up X 1. Pulse ox on. NIBP on. Door closed. Noise minimized. Lights dimmed. Warm blanket given. Pillow given. 19:00 Provided Education on: call light. kj2 19:52 Assist provider with laceration repair Set up tray. kj2 20:12 Patient did not have IV access during this emergency room visit. kj2 Administered Medications: 19:54 Drug: Lidocaine Infiltration (2 %) 5 ml 5 ml Infiltration once; to bedside {Note: kj2 administered by provider.} Volume: 5 ml; Route: Infiltration; 20:12 Follow up: Response: No adverse reaction kj2 Medication: 18:01 VIS not applicable for this client. ph Outcome: 19:32 Discharge ordered by . pm1 19:52 Discharged to home via wheelchair, with family, kj2 19:52 Condition: stable 19:52 Discharge instructions given to patient, family, Instructed on discharge instructions, follow up and referral plans. Demonstrated understanding of instructions, follow-up care, 20:12 Patient left the ED. kj2 Signatures: Dispatcher [employer] [facility] Marlene Saldaña RN RN Kane Kirkpatrick, RADHA CAROUSEL ATTENDANT pm1 Sherlyn Canales RN RN ap3 Shahana Oliva RN RN 1 Miguelina Wolff ra3 Helio, Keiko, RN RN kj2
[2024-03-08 20:24] VITALS: BP 150/68; TEMP 98; O2SAT 100
== END 2024-03-08 20:12 | disposition home or self-care (01) ==
LOC: ER 15:57
DX: S01.81XA Laceration without foreign body of other part of head, initial encounter (principal); W01.0XXA Fall on same level from slipping, tripping and stumbling without subsequent striking against object, initial encounter; Z95.818 Presence of other cardiac implants and grafts
CPT/HCPCS: 70450; 99284; 12052; J2003

== ENCOUNTER 2024-04-03 14:43 | Emergency (ER) | payer OTHER, MEDICARE ==
--- NOTE | 2024-04-03 15:51 | RAD REPORT ---
EXAMINATION: CT HEAD WITHOUT CONTRAST CT CERVICAL SPINE WITHOUT CONTRAST CLINICAL INDICATION: Head and neck injury status post fall. Head and neck pain TECHNIQUE: Axial CT images from the skull base to the vertex without intravenous contrast. Axial CT i mages through the cervical spine were obtained without intravenous contrast. Sagittal and coronal reformatted images were created from the data set. Coronal and sagittal reformatted images were creat ed from the data set. One or more of the following dose reduction techniques were used: Automated exposure control, adjustment of the mA and/or kV according to patient size, and/or iterative reconstr uction. Unless otherwise specified, incidental findings do not require dedicated imaging follow-up. [id number]. Comparison: 2022 FINDINGS: Right scalp hematoma. An intracranial bleed is not seen. Ventricles are normal in caliber. No significant hypodensity within the brain No extra-axial fluid collection. No fluid within the right maxillary sinus may indicate acute sinusitis. No fracture or dislocation is seen involving the cervical spine. IMPRESSION: No acute intracranial abnormality noted A cervical fracture is not seen. 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
--- NOTE | 2024-04-03 16:25 | ER ---
Nurse's Notes [facility] Name: Eleuterio Baird Age: 73 yrs Sex: Male : 1950 Arrival Date: 04/03/2024 Time: 14:43 Bed 24 Private MD: Diagnosis: Unspecified injury of head, initial encounter Presentation: 04/03 14:52 Chief complaint: EMS states: mechanical fall from standing at home today. Denies LOC. ss Coronavirus screen: Client denies travel out of the [place] in the last 14 days. Ebola Screen: Patient denies exposure to infectious person. Patient denies travel to an Ebola-affected area in the 21 days before illness onset. Initial Sepsis Screen: Does the patient meet any 2 criteria? No. Patient's initial sepsis screen is negative. Does the patient have a suspected source of infection? No. Patient's initial sepsis screen is negative. Risk Assessment: Do you want to hurt yourself or someone else? Patient reports no desire to harm self or others. Onset of symptoms was April 03, 2024. 14:52 Method Of Arrival: Ambulatory 14:52 Acuity: SALOME 3 ss Historical: - Allergies: 14:54 Amantadine; ss 14:54 Flagyl; ss - PMHx: 14:54 HTN; [place]; MS; Neurogenic bladder (self caths as needed); Right sided weakness (MS); ss Seizure; - PSHx: 14:54 Heart Stents; ss - Immunization history: Last tetanus immunization: - up to date. < 5 years ago. Screenin:02 Abuse screen: Denies threats or abuse. Nutritional screening: No deficits noted. jb4 Tuberculosis screening: No symptoms or risk factors identified. Fall risk None identified. Primary Survey: 15:02 NO uncontrolled hemorrhage observed. A: The client is awake and alert. The airway is jb4 patent. Breathing/Chest: Spontaneous respiratory effort, equal unlabored respirations, breath sounds clear bilaterally, regular pattern, symmetrical chest rise and fall. Circulation: No external hemorrhage present. Regular and strong central pulse, skin warm/dry/normal color. Disability Pupils are equal, round, reactive to light and accommodation. Exposure/Environment: All clothing and personal items were removed. Forensic evidence collection is not deemed to be indicated at this time. Items placed in patient belonging bag. Assessment: 15:00 General: Appears in no apparent distress. comfortable, Behavior is calm, cooperative, jb4 appropriate for age. Pain: Denies pain. Neuro: Level of Consciousness is awake, alert, obeys commands, Oriented to person, place, time, situation. Cardiovascular: Patient's skin is warm and dry. Respiratory: Airway is patent Respiratory effort is even, unlabored, Respiratory pattern is regular, symmetrical. Derm: Skin is pink, warm \T\ dry. Musculoskeletal: Circulation, motion, and sensation intact. Range of motion: intact in all extremities. 15:07 Reassessment: Pt to CT now VIA stretcher. ss 16:16 Reassessment: Patient appears in no apparent distress at this time. Patient and/or jb4 family updated on plan of care and expected duration. Pain level reassessed. Patient is alert, oriented x 3, equal unlabored respirations, skin warm/dry/pink. Pain: Denies pain. Injury Description: Abrasion sustained to right parietal area. Vital Signs: 14:52 BP 162 / 67; Pulse 56; Resp 16; Temp 98(O); Pulse Ox 97% on R/A; Weight 76.2 kg; Height ss 5 ft. 7 in. ; Pain 0/10; 15:45 BP 147 / 64; Pulse 50; Resp 16; Pulse Ox 96% on R/A; jb4 14:52 Body Mass Index 26.31 (76.20 kg, 170.18 cm) ss 14:52 Pain Scale: Adult ss Teddy Coma Score: 15:02 Eye Response: spontaneous(4). Motor Response: obeys commands(6). Verbal Response: jb4 oriented(5). Total: 15. 15:45 Eye Response: spontaneous(4). Motor Response: obeys commands(6). Verbal Response: jb4 oriented(5). Total: 15. Trauma Score (Adult): 15:02 Eye Response: spontaneous(1); Verbal Response: oriented(1); Motor Response: obeys jb4 commands(2); Systolic BP: > 89 mm Hg(4); Respiratory Rate: 10 to 29 per min(4); Teddy Score: 15; Trauma Score: 12 15:45 Eye Response: spontaneous(1); Verbal Response: oriented(1); Motor Response: obeys jb4 commands(2); Systolic BP: > 89 mm Hg(4); Respiratory Rate: 10 to 29 per min(4); Teddy Score: 15; Trauma Score: 12 ED Course: 14:50 Patient arrived in ED. 14:50 Bharathi Zaman MD is Attending Physician. ec2 14:54 Triage completed. ss 14:54 Arm band placed on left wrist. ss 15:02 Patient has correct armband on for positive identification. Bed in low position. Call jb4 light in reach. Side rails up X 1. 15:03 Patient maintains SpO2 saturation greater than 95% on room air. Thermoregulation: warm jb4 blanket given to patient. 15:19 CT Head C Spine In Process Unspecified. EDMS 16:44 No provider procedures requiring assistance completed. Patient did not have IV access jb4 during this emergency room visit. Administered Medications: 15:02 Not Given (Patient Refused): boostrix tdap0.5 ml IM once; as a single dose jb4 Outcome: 16:25 Discharge ordered by . ec2 16:44 Discharged to home via wheelchair, with family, jb4 16:44 Condition: stable 16:44 Discharge instructions given to patient, family, Instructed on discharge instructions, follow up and referral plans. Demonstrated understanding of instructions, follow-up care, 16:45 Patient left the ED. jb4 Signatures: Dispatcher [employer] Roxane Fregoso RN RN Darin Gamez RN RN jb4 Bharathi Zaman MD MD ec2
--- NOTE | 2024-04-03 16:25 | EDPHYS ---
Physician Documentation [facility] Name: Eleuterio Baird Age: 73 yrs Sex: Male : 1950 Arrival Date: 04/03/2024 Time: 14:43 Bed 24 Private MD: ED Physician Bharathi Zaman HPI: 04/03 15:52 This 73 yrs old Male presents to ER via Ambulatory with complaints of Fall Injury, Head ec2 Injury Without LOC-Adult. 15:52 Patient arrives today for evaluation of a ground-level fall. History of MS, is on ec2 Plavix, had struck the back of his head. No LOC. Patient reports otherwise no prodromal symptoms.. Historical: - Allergies: 14:54 Amantadine; ss 14:54 Flagyl; ss - PMHx: 14:54 HTN; [place]; MS; Neurogenic bladder (self caths as needed); Right sided weakness (MS); ss Seizure; - PSHx: 14:54 Heart Stents; ss - Immunization history: Last tetanus immunization: - up to date. < 5 years ago. ROS: 15:52 Constitutional: as per hpi ec2 Exam: 15:52 Constitutional: GEN: NAD Head: atraumatic Eyes: EOMI Ears: External ears are ec2 normal. CV: regular rate LUNGS: no respiratory distress ABD: non-distended SKIN: Abrasion to the scalp, occipital area. MSK: no evidence of trauma Vital Signs: 14:52 BP 162 / 67; Pulse 56; Resp 16; Temp 98(O); Pulse Ox 97% on R/A; Weight 76.2 kg; Height ss 5 ft. 7 in. ; Pain 0/10; 15:45 BP 147 / 64; Pulse 50; Resp 16; Pulse Ox 96% on R/A; jb4 14:52 Body Mass Index 26.31 (76.20 kg, 170.18 cm) ss 14:52 Pain Scale: Adult ss Teddy Coma Score: 15:02 Eye Response: spontaneous(4). Motor Response: obeys commands(6). Verbal Response: jb4 oriented(5). Total: 15. 15:45 Eye Response: spontaneous(4). Motor Response: obeys commands(6). Verbal Response: jb4 oriented(5). Total: 15. Trauma Score (Adult): 15:02 Eye Response: spontaneous(1); Verbal Response: oriented(1); Motor Response: obeys jb4 commands(2); Systolic BP: > 89 mm Hg(4); Respiratory Rate: 10 to 29 per min(4); Teddy Score: 15; Trauma Score: 12 15:45 Eye Response: spontaneous(1); Verbal Response: oriented(1); Motor Response: obeys jb4 commands(2); Systolic BP: > 89 mm Hg(4); Respiratory Rate: 10 to 29 per min(4); Rosamond Score: 15; Trauma Score: 12 MDM: 15:04 Medical Screening Exam initiated ec2 15:53 Data reviewed: vital signs, nurses notes. ED course: Patient arrives today for ec2 evaluation of a scalp injury. Examination yields skin findings as above. Will CT scan of the head obtained, shows no acute intracranial injury. Differential diagnosis considered include process such as intracranial brain bleed, C-spine fracture. Additionally considered prodromal causes such as ACS, electrolyte disturbances, arrhythmia however patient without any prodromal symptoms. Accordingly forego CBC, BMP or EKG.. 16:24 ED course: CT imaging negative. Will discharge home have patient follow-up PCP. Patient ec2 with abrasion to the back of the head without laceration.. 01 14:53 Order name: CT Head C Spine; Complete Time: 15:53 ec2 Administered Medications: 15:02 Not Given (Patient Refused): boostrix tdap0.5 ml IM once; as a single dose jb4 Disposition Summary: 04/03/24 16:25 Discharge Ordered Notes: Location: Home ec2 Condition: Stable ec2 Diagnosis - Unspecified injury of head, initial encounter ec2 Followup: ec2 - With: Private Physician - When: - Reason: Re-evaluation by your physician Discharge Instructions: - Discharge Summary Sheet ec2 - Head Injury, Adult, [id number] ec2 Forms: - Medication Reconciliation Form ec2 - Antibiotic Education ec2 - Prescription Opioid Use ec2 - Patient Portal Instructions ec2 - Leadership Thank You Letter ec2 Signatures: Dispatcher [employer] Roxane Fregoso RN RN Darin Gamez RN RN jb4 Bharathi Zaman MD MD ec2
[2024-04-03 17:07] VITALS: TEMP 98
[2024-04-03 17:08] VITALS: BP 147/64; O2SAT 96
== END 2024-04-03 16:45 | disposition home or self-care (01) ==
LOC: ER 14:43
DX: S09.90XA Unspecified injury of head, initial encounter (principal); I10 Essential (primary) hypertension; I25.2 Old myocardial infarction; G35 Multiple sclerosis; N31.9 Neuromuscular dysfunction of bladder, unspecified; W18.30XA Fall on same level, unspecified, initial encounter; Y93.9 Activity, unspecified; Y92.019 Unspecified place in single-family (private) house as the place of occurrence of the external cause; Z88.1 Allergy status to other antibiotic agents
CPT/HCPCS: 70450; 72125; 99282

== ENCOUNTER 2024-04-24 01:52 | Observation (INO) | payer OTHER, MEDICARE ==
[2024-04-24 02:26] LABS: Absolute Eosinophils 0.1 K/uL (0-0.5); Absolute Lymphocytes (CBC) 0.8 K/uL (0.7-4.9); Absolute Monocytes 0.5 K/uL (0.1-1.3); Absolute Neutrophil 6.6 K/uL (1.8-8.0); Basophils % 0.4 % (0-1.3); Hemoglobin 11.5 g/dL (13.6-17.9); Lymphocytes % 9.4 % (15.3-44.8); MCH 32.3 pg (27.0-35.0); MCHC 33.9 g/dL (32.0-36.0); MCV 95.2 fL (80-100); MPV 8.5 fL (7.6-11.3); Monocytes % 6.7 % (3.3-12.3); Neutrophils % 82.5 % (41.7-73.7); Platelets 178 thou/uL (152-406); RBC Red Blood Cell Count 3.57 M/uL (4.33-5.43); Red Cell Distribution Width 13.6 % (12.1-15.2)
[2024-04-24 02:35] LABS: PT Prothrombin Time 10.4 SECONDS (9.4-12.5); PTT, Activated Partial Thromb 28.5 SECONDS (24.3-36.9); Protime INR 0.99
[2024-04-24 02:44] LABS: ALT/SGPT 26 U/L (16-61); AST/SGOT 21 U/L (15-37); Albumin/Globulin Ratio 1.3 (1.1-1.8); Alkaline Phosphatase 107 U/L (45-117); Anion Gap 10.4 mEq/L (5.0-15.0); BUN Blood Urea Nitrogen 24 mg/dL (7-18); Bicarbonate 27 mEq/L (21-32); Bilirubin Total 0.2 mg/dL (0.2-1.0); Glomerular Filtration Rate 92 ml/min (=/>90); Glucose Level 102 mg/dL (74-106); Magnesium 2.1 mg/dL (1.6-2.4); Potassium 4.4 mEq/L (3.5-5.1); Sodium Level 135 mEq/L (136-145); Troponin High Sensitivity 18.3 pg/mL (<58.9)
[2024-04-24 02:52] LABS: Bilirubin Direct < 0.2 mg/dL (0-0.2)
--- NOTE | 2024-04-24 03:20 | ER ---
Nurse's Notes [facility] Name: Eleuterio Baird Age: 73 yrs Sex: Male : 1950 Arrival Date: 04/24/2024 Time: 01:52 Bed 25 Private MD: Diagnosis: syncope;Sinus Bradycardia;Anemia Presentation: 04/24 02:00 Chief complaint: Patient states: PT STATES HE BECAME WEAK WHEN GOING TO THE BATHROOM br2 AND ENDED UP ON THE FLOOR. FOUND PT ON FLOOR DIAPHORETIC, AND "UNRESPONSIVE" FOR A SHORT TIME.. PT HAD AN INCONTINENT (BM) EPISODE WHILE ON THE FLOOR. CLEANED UP PT PRIOR TO ARRIVING TO ER. PT DENIES PAIN ON ARRIVAL TO ER. PT HAS MS. Coronavirus screen: Client denies travel out of the [place] in the last 14 days. Ebola Screen: Patient denies exposure to infectious person. Initial Sepsis Screen: Does the patient meet any 2 criteria? No. Patient's initial sepsis screen is negative. Does the patient have a suspected source of infection? No. Patient's initial sepsis screen is negative. Risk Assessment: Do you want to hurt yourself or someone else? Patient reports no desire to harm self or others. Onset of symptoms was April 24, 2024 at 01:00. 02:00 Method Of Arrival: EMS: [facility] br2 02:00 Acuity: SALOME 3 br2 Triage Assessment: 02:40 General: Appears in no apparent distress. distressed, Behavior is calm, cooperative. br2 Pain: Denies pain. Neuro: Gonzalez Agitation-Sedation Scale (RASS): 0 - Alert and Calm Reports weakness. Cardiovascular: Denies chest pain, Capillary refill < 3 seconds. Respiratory: Airway is patent Respiratory effort is even, unlabored, Respiratory pattern is regular, symmetrical. GI: No signs and/or symptoms were reported involving the gastrointestinal system. : No signs and/or symptoms were reported regarding the genitourinary system. Derm: No signs and/or symptoms reported regarding the dermatologic system. Historical: - Allergies: 02:40 Amantadine; br2 02:40 Flagyl; br2 - PMHx: 02:40 HTN; [place]; MS; Neurogenic bladder (self caths as needed); Right sided weakness (MS); br2 Seizure; - PSHx: 02:40 Heart Stents; br2 - Immunization history:: Adult Immunizations up to date. - Infectious Disease History:: Denies. - Social history:: Smoking status: Patient/guardian denies using tobacco, Patient uses alcohol, but reports only rare drinking. Screenin:00 [facility] ED Fall Risk Assessment (Adult) History of falling in the last 3 months, br2 including since admission Yes- fall prone (multiple falls) (3 pts) Confusion or Disorientation No (0 pts) Intoxicated or Sedated No (0 pts) Impaired Gait Yes (1 pt) Mobility Assist Device Used Yes (1 pt) Altered Elimination Yes (1 pt) Score/Fall Risk Level 3 or more points = High Risk Oriented to surroundings, Maintained a safe environment. Abuse screen: Denies threats or abuse. Denies injuries from another. Nutritional screening: No deficits noted. Tuberculosis screening: No symptoms or risk factors identified. Assessment: 05:22 Reassessment: Patient and/or family updated on plan of care and expected duration. Pain br2 level reassessed. Patient is alert, oriented x 3, equal unlabored respirations, skin warm/dry/pink. RESTING IN BED WITH NO SIGNS OF DISTRESS. Vital Signs: 02:00 BP 120 / 65; Pulse 50; Resp 12 S; Temp 97.6; Pulse Ox 98% on R/A; Weight 72.57 kg; br2 Height 5 ft. 7 in. ; Pain 0/10; 05:20 BP 88 / 47; Pulse 55; Resp 16; Pulse Ox 95% ; br2 05:38 BP 100 / 59; ms3 05:49 BP 101 / 61; Pulse 87; Resp 12; Pulse Ox 96% on R/A; br2 18:10 BP 139 / 64; Pulse 64; Resp 18; Pulse Ox 98% ; Pain 0/10; kb3 02:00 Body Mass Index 25.06 (72.57 kg, 170.18 cm) br2 02:00 Pain Scale: Adult br2 18:10 Pain Scale: Adult kb3 ED Course: 01:54 Patient arrived in ED. jj6 01:55 Wallace Rios DO is Attending Physician. ms3 02:00 Inserted saline lock: 20 gauge in left forearm, using aseptic technique. Blood br2 collected. Flushed with 10 mL NS. 02:00 Patient has correct armband on for positive identification. Placed in gown. Bed in low br2 position. Call light in reach. Side rails up X 1. Provided Education on: PLAN OF CARE. 02:27 Chest Single View XRAY In Process Unspecified. EDMS 02:30 Mary Kam, RN is Primary Nurse. br2 02:40 Triage completed. br2 02:40 Arm band placed on. br2 02:41 Basic Metabolic Panel Sent. vk 02:41 Hepatic Function Sent. vk 02:42 Magnesium Sent. vk 02:42 Troponin High Sensitivity Sent. vk 02:42 Initial lab(s) drawn, by ED staff, sent to lab. EKG done, by ED staff. vk 03:19 Maddie Parham MD is Hospitalizing Provider. ms3 07:17 No provider procedures requiring assistance completed. Patient admitted, IV remains in jl7 place. intact, No redness/swelling at site. Administered Medications: 05:02 Drug: NS 0.9% IV 500 ml 500 ml IV at 1 bolus once; to be given as a bolus over 30 br2 minutes Volume: 500 ml; Route: IV; Rate: 1 bolus; Site: left forearm; 05:30 Follow up: IV Status: Completed infusion; IV Intake: 500ml br2 05:49 Drug: NS 0.9% IV 1000 ml IV at 100 ml/hr once; to be given as a bolus over 60 minutes br2 Route: IV; Rate: 100 ml/hr; Site: left forearm; 07:08 Follow up: Response: No adverse reaction; IV Status: Completed infusion; IV Intake: br2 1000ml Intake: 05:30 IV: 500ml; Total: 500ml. br2 07:08 IV: 1000ml; Total: 1500ml. br2 Outcome: 03:19 Decision to Hospitalize by Provider. ms3 07:17 Admitted to ER Hold. Please see [facility] for further documentation. jl7 07:17 Condition: stable 07:17 Instructed on the need for admit, 18:11 Patient left the ED. kb3 Signatures: Dispatcher [employer] EDMS Carli Broussard, RN RN jl7 Wallace Rios DO DO ms3 Citlalli Colon jj6 Candy Shearer, RN RN kb3 Cristina Cuevas Belinda, RN RN br2 Corrections: (The following items were deleted from the chart) 05:23 02:43 [place] Swallow Protocol 3 oz Water Swallow Challenge: br2 br2
--- NOTE | 2024-04-24 03:20 | EDPHYS ---
Physician Documentation [facility] Name: Eleuterio Baird Age: 73 yrs Sex: Male : 1950 Arrival Date: 04/24/2024 Time: 01:52 Bed 25 Private MD: ED Physician Wallace Rios HPI: 04/24 03:23 This 73 yrs old Male presents to ER via EMS with complaints of Weakness. ms3 03:23 Eleuterio Baird, a 73-year-old male, presents to the Emergency Department with an episode of ms3 unresponsiveness. His reports that he has a history of restless legs, for which he performs squats to alleviate symptoms. During one such episode, he became weak and sat down in his wheelchair. His found him unresponsive, unable to talk, and diaphoretic. The episode lasted a few minutes, during which he had a bowel movement on himself and vomited. He was also noted to be sweating profusely. His administered four baby aspirins. His blood sugar was recorded at 114, and he was bradycardic, which is reportedly normal for him. He has a significant cardiac history, including having ten stents, with the most recent two placed on February 21. He denies any current chest pain or other localized pain.. Historical: - Allergies: 02:40 Amantadine; br2 02:40 Flagyl; br2 - PMHx: 02:40 HTN; KS; MS; Neurogenic bladder (self caths as needed); Right sided weakness (MS); br2 Seizure; - PSHx: 02:40 Heart Stents; br2 - Immunization history:: Adult Immunizations up to date. - Infectious Disease History:: Denies. - Social history:: Smoking status: Patient/guardian denies using tobacco, Patient uses alcohol, but reports only rare drinking. ROS: 03:23 Constitutional: Negative for fever, and chills. Cardiovascular: Negative for chest ms3 pain, and palpitations. Respiratory: Negative for shortness of breath, cough, wheezing, and pleuritic chest pain, Abdomen/GI: Negative for abdominal pain, nausea, vomiting, diarrhea, and constipation, 03:23 MS/Extremity: Negative for injury and deformity, Skin: Negative for injury, rash, and discoloration, 03:23 Cardiovascular: Positive for 03:23 MS/extremity: 03:23 Neuro: Positive for syncope, Exam: 03:23 Constitutional: This is a well developed, well nourished patient who is awake, alert, ms3 and in no acute distress. Head/Face: Normocephalic, atraumatic. Cardiovascular: Regular rate and rhythm with a normal S1 and S2. No gallops, murmurs, or rubs. Normal PMI, no JVD. No pulse deficits. Respiratory: Lungs have equal breath sounds bilaterally, clear to auscultation and percussion. No rales, rhonchi or wheezes noted. No increased work of breathing, no retractions or nasal flaring. Abdomen/GI: Soft, non-tender, with normal bowel sounds. No distension or tympany. No guarding or rebound. No evidence of tenderness throughout. Skin: Warm, dry with normal turgor. Normal color with no rashes, no lesions, and no evidence of cellulitis. 03:23 ECG was reviewed by the Attending Physician. ms3 Vital Signs: 02:00 BP 120 / 65; Pulse 50; Resp 12 S; Temp 97.6; Pulse Ox 98% on R/A; Weight 72.57 kg; br2 Height 5 ft. 7 in. ; Pain 0/10; 05:20 BP 88 / 47; Pulse 55; Resp 16; Pulse Ox 95% ; br2 05:38 BP 100 / 59; ms3 05:49 BP 101 / 61; Pulse 87; Resp 12; Pulse Ox 96% on R/A; br2 18:10 BP 139 / 64; Pulse 64; Resp 18; Pulse Ox 98% ; Pain 0/10; kb3 02:00 Body Mass Index 25.06 (72.57 kg, 170.18 cm) br2 02:00 Pain Scale: Adult br2 18:10 Pain Scale: Adult kb3 MDM: 01:56 Medical Screening Exam initiated ms3 03:23 Data reviewed: vital signs, nurses notes, lab test result(s), EKG, radiologic studies, ms3 and as a result, I will admit patient. Consideration of Admission/Observation Patient was admitted/placed on observation. Management of patient was discussed with the following: Hospitalist: Dr Parham notified of admission. Independent interpretation of the following test(s) in the Emergency Department EKG: See my EKG interpretation above. Historians other than the Patient: EMS: [facility]. Spouse/Significant Other: Patient's . Counseling: I had a detailed discussion with the patient and/or guardian regarding the historical points, exam findings, and any diagnostic results supporting the discharge/admit diagnosis, lab results, radiology results, the need for further work-up and treatment in the hospital. ED course: Discussed necessity for observation with patient and his . They understand agree with plan. Questions were answered.. 04/24 01:56 Order name: Basic Metabolic Panel; Complete Time: 03:01 3 04/24 01:56 Order name: CBC with Diff; Complete Time: 03:01 3 04/24 01:56 Order name: Hepatic Function; Complete Time: 03:04/24 01:56 Order name: Magnesium; Complete Time: 03:04/24 01:56 Order name: Protime (+inr); Complete Time: 03:01 04/24 01:56 Order name: Ptt, Activated; Complete Time: 03:04/24 01:56 Order name: Troponin High Sensitivity; Complete Time: 03:01 04/24 03:25 Order name: CBC with Automated Diff EDMS 04/24 03:25 Order name: CBC with Automated Diff EDMS 04/24 03:25 Order name: Comprehensive Metabolic Panel EDMS 04/24 03:25 Order name: Comprehensive Metabolic Panel EDMS 04/24 03:25 Order name: Troponin High Sensitivity EDMS 04/24 03:25 Order name: Troponin High Sensitivity EDMS 04/24 03:25 Order name: Troponin High Sensitivity EDMS 04/24 03:25 Order name: Troponin High Sensitivity EDMS 04/24 01:56 Order name: Chest Single View XRAY 3 04/24 08:12 Order name: CT EDMS 04/24 01:56 Order name: Cardiac monitoring; Complete Time: 02:41 ms04/24 01:56 Order name: EKG - Nurse/Tech; Complete Time: 02:41 ms04/24 01:56 Order name: IV Saline Lock; Complete Time: 02:41 ms3 04/24 01:56 Order name: Labs collected and sent; Complete Time: 02:42 ms3 04/24 01:56 Order name: NPO; Complete Time: 02:42 ms3 04/24 01:56 Order name: O2 Per Protocol; Complete Time: 02:41 ms3 04/24 01:56 Order name: O2 Sat Monitoring; Complete Time: 02:41 ms3 EC:23 Rate is 48 beats/min. Rhythm is regular. QRS [place] is Normal. MD interval is normal. QRS ms3 interval is normal. Clinical impression: Sinus bradycardia. Interpreted by me. Reviewed by me. Administered Medications: 05:02 Drug: NS 0.9% IV 500 ml 500 ml IV at 1 bolus once; to be given as a bolus over 30 br2 minutes Volume: 500 ml; Route: IV; Rate: 1 bolus; Site: left forearm; 05:30 Follow up: IV Status: Completed infusion; IV Intake: 500ml br2 05:49 Drug: NS 0.9% IV 1000 ml IV at 100 ml/hr once; to be given as a bolus over 60 minutes br2 Route: IV; Rate: 100 ml/hr; Site: left forearm; 07:08 Follow up: Response: No adverse reaction; IV Status: Completed infusion; IV Intake: br2 1000ml Disposition Summary: 04/24/24 03:19 Hospitalization Ordered Notes: Hospitalization Status: Observation ms3 Provider: Maddie Parham ms3 Condition: Stable ms3 Problem: new ms3 Symptoms: are unchanged ms3 Bed/Room Type: Standard ms3 Location: [facility] ER HOLD(04/24/24 03:24) [facility] Room Assignment: ERHOLD-(04/24/24 03:24) lg3 Diagnosis - syncope ms3 - Sinus Bradycardia ms3 - Anemia ms3 Forms: - Medication Reconciliation Form ms3 - SBAR form ms3 - Leadership Thank You Letter ms3 Signatures: Dispatcher [employer] EDMS Kirti Bermudez, RN RN lg3 Wallace Rios DO DO ms3 Mary Kam RN RN br2 Corrections: (The following items were deleted from the chart) 01:57 01:57 BASIC METABOLIC PANEL+C.LAB.BRZ ordered. EDMS EDMS :57 01:57 CBC+H.LAB.BRZ ordered. EDMS EDMS 01:57 01:57 HEPATIC FUNCTION+C.LAB.BRZ ordered. EDMS EDMS 01:57 01:57 MAGNESIUM+C.LAB.BRZ ordered. EDMS EDMS 01:57 01:57 PROTIME (+INR)+COAG.LAB.BRZ ordered. EDMS EDMS 01:57 01:57 PTT, ACTIVATED+COAG.LAB.BRZ ordered. EDMS EDMS 01:57 01:57 Troponin High Sensitivity+C.LAB.BRZ ordered. EDMS EDMS 01:57 01:57 Chest Single View+RAD.RAD.BRZ ordered. EDMS EDMS 03:24 03:19 Telemetry/MedSurg (observation) ms3 lg3 03:24 03:19 ms3 lg3
[2024-04-24] MEDS ORDERED: ONDANSETRON 4 MG/2 ML VIAL IV PRN (03:21)
[2024-04-24] MEDS ORDERED: NA CHLORIDE 0.9% 500 ML ONE (04:59)
[2024-04-24 05:39] VITALS: BMI 25.0
[2024-04-24] MEDS ORDERED: NA CHLORIDE 0.9% 1,000 ML ONE ×2 (05:45→10:44)
--- NOTE | 2024-04-24 06:39 | RAD REPORT ---
EXAM: XR Chest, 1 View CLINICAL HISTORY: The patient is 73 years old and is Male; syncope TECHNIQUE: Frontal view of the chest. COMPARISON: No relevant prior studies available. FINDINGS: Lungs: Unremarkable. No consolidation. Pleural space: Unremarkable. No pneumothorax. Heart: Unremarkable. Mediastinum: Unremarkable. Normal mediastinal contour. Bones/joints: No acute findings. IMPRESSION: No acute findings in the chest. Electronically signed by: Harry Reynoso MD 04/24/2024 03:11 AM [facility] 8 Due to temporary technical issues with the PACS/[employer] reporting system, reports are being aparna d by the in-house radiologist without review as a courtesy to ensure prompt reporting the interpreting radiologist is fully responsible for the content of the report. Transcribed Date/Time: 04/24/2024 6:39 AM
--- NOTE | 2024-04-24 08:11 | RAD REPORT ---
EXAM: CT brain without contrast HISTORY: syncope COMPARISON: 04/03/2024 TECHNIQUE: Multiple contiguous axial images were obtained and a CT of the brain without contrast. Sag ittal and coronal reformats were performed. One or more of the following dose reduction techniques were used: Automated exposure control, adjust ment of the mA and/or kV according to patient size, and/or iterative reconstruction. FINDINGS: No evidence of hydrocephalus, intracranial hemorrhage, or extra-axial fluid collection. Mild brain atrophy with mild periventricular and deep white matter chronic microvascular ischemic ch anges present. No evidence of midline shift or areas of brain edema. The calvarium is intact. The visualized paranasal sinuses and mastoid air cells are essentially clear . IMPRESSION: No evidence of acute intracranial abnormality.
[2024-04-24] MEDS: NA CHLORIDE 0.9% 1,000 ML IV SCH (10:54)
[2024-04-24 11:33] VITALS: TEMP 97.8
[2024-04-24 18:15] VITALS: BP 139/64
[2024-04-24 21:29] VITALS: O2SAT 98
--- NOTE | 2024-04-25 04:10 | HP ---
Date of Admission: 04/24/2024 Chief Complaint: Fainting episode. History Of Present Illness: This is a 73-year-old male patient, who lives at home with his , who woke up in middle of the night and went to the bathroom. As he went to the bathroom, he sat down in his walker and passed out. The patient's was still sleeping in the bedroom, but she heard some noise coming out of the bathroom, so she immediately woke up and went to the bathroom to find the pa palomo sitting in his walker with his body and head leaned backwards, unconscious, unresponsive, migue g some grunting type of noise, and she immediately put him on the floor and after she placed him on t he floor, he started coming around. The patient had nausea and vomiting at that time and he was diap horetic. She immediately called 911 and gave 4 baby aspirin to him and once ambulance arrived, they brought the patient to the emergency room and after he was evaluated in ER, he was admitted to the [facility]. This morning when I saw him, he was feeling fine, lying in bed in the emergency room, and wi fe was present with him at bedside. The patient's systolic blood pressure had dropped down into 70 t o 80 range, especially while he was sleeping in the ER, and IV fluid was started and he responded wel l to that. Physical Examination: Vital Signs: Height 5 feet 8 inches, weight 165 pounds, temperature , pulse , re spiratory rate , blood pressure , oxygen saturation . General: Awake, alert, oriented, not in distress. HEENT: Head atraumatic, normocephalic. Conjunctivae nonerythematous. Sclerae white. Mouth, no thr ush or edema noted. Ears/Nose, no mass, lesion, discharge noted. Neck: Supple. No JVD, lymph nodes, bruit, thyromegaly noted. Lungs: Bilateral good equal air entry. Clear to auscultation. No rhonchi. No rales. Heart: Normal heart sounds, no murmur or gallop. Abdomen: Soft, bowel sounds normal. No guarding, rigidity, tenderness, mass, hepatosplenomegaly, dis tention, or bruit noted. Extremities: No leg edema. No calf tenderness. Skin: No rash, ulcer, cellulitis. Lymphatics: No lymph node enlargement in neck, supraclavicular, infraclavicular region. Neuro: No focal neurological deficit. Chest: Unremarkable. External Genitalia: Deferred. Rectal: Deferred. Laboratory Data: WBC 8, hemoglobin 11.5, platelets 178. Sodium 135, potassium 4.4, chloride 102, bi carb 27, BUN 24, creatinine 0.83, glucose 102. Liver function tests unremarkable. Troponin 18.3, se cond troponin 16.4. Chest x-ray, no acute cardiopulmonary changes. CAT scan of the head, no acute i ntracranial changes. Hospital Course: After the patient was evaluated in emergency room, he was admitted to the hospital. When I saw him, he was still in the emergency room. was present with him at bedside. His cli nical presentation is very likely due to underlying hypotension episode and this was discussed with t he patient and the patient's . He was getting IV fluid in the emergency room. After I saw him, he was kept in the hospital and his day was unremarkable. The patient's tells me that they see manager mail in [place], Dr. Steiner, on a regular basis who has put stent in his heart as well as leg and also has informed the patient that he has bilateral carotid artery stenosis and in near future, he needs to work on his carotid arteries. With that, I have informed the patient and the patient's w evan that they need to follow up with this manager mail as soon as possible upon discharge from our [facility] and I have instructed the patient and to discontinue his lisinopril that he takes at home for his blood pressure problem, but to continue all other medications upon discharge including his m etoprolol. The patient will benefit from Holter monitor and I have instructed to communicate th is with the patient's manager mail who can help make that arrangements on outpatient basis. Overall, his condition remained stable today. Orthostatic vital signs were checked in the emergency room and his supine blood pressure was 107/52, sitting blood pressure 108/68, and standing blood pressure 118 /64. Final Diagnoses: 1.Syncope. 2.Coronary artery disease. 3.Hypertension. 4.Hypothyroidism. 5.Hyperlipidemia. 6.Pancytopenia. 7.Seizure disorder. 8.Multiple sclerosis. 9.Benign prostatic hypertrophy. Discharge Medications And Instructions: 1.Continue all prior home medications. 2.Followup at my office tomorrow. 3.Discontinue lisinopril. 4.Follow up with manager mail as soon as possible. Total time spent today 90 minutes including review of last office visit record from 02/29/2024, commu nication with emergency room physician, review of emergency room visit records, performing today's ev aluation and management. JESS/MODL Voice ID: [id number]
--- NOTE | 2024-04-26 12:37 | EKG ---
Test Date: 2024-04-24 Test Time: 02:39:33 Belt Picker: KRISTIN MEASUREMENT RESULTS: Intervals: Rate: 48 AL: 260 QRSD: 108 QT: 436 QTc: 389 [place]: P: 46 AL: 260 QRS: 25 T: -24 INTERPRETIVE STATEMENTS: Sinus bradycardia with sinus arrhythmia with 1st degree AV block Cannot rule out Inferior infarct, age undetermined ST & T wave abnormality, consider lateral ischemia Abnormal ECG Compared to ECG 02/24/2024 16:19:02 Myocardial infarct finding now present Possible ischemia now present Sinus rhythm no longer present ST (T wave) deviation still present Electronically Signed On 04-26-24 12:32:46 STAFFING ASSISTANT by Cuauhtemoc Mcarthur
== END 2024-04-24 18:29 | disposition home or self-care (01) ==
LOC: ER 01:52 → ERHOLD 03:21
PROVIDERS: ADMIT Internal Medicine; ATTEND Internal Medicine
DX: R55 Syncope and collapse (principal); I25.10 Atherosclerotic heart disease of native coronary artery without angina pectoris; R00.1 Bradycardia, unspecified; D64.9 Anemia, unspecified; I10 Essential (primary) hypertension; E03.9 Hypothyroidism, unspecified; E78.5 Hyperlipidemia, unspecified; D61.818 Other pancytopenia; R56.9 Unspecified convulsions; G35 Multiple sclerosis; N40.0 Benign prostatic hyperplasia without lower urinary tract symptoms
CPT/HCPCS: 85025; 80048; 36415; 83735; 85610; 80076; 85730; 84484 ×3; 70450; 71045; J7040; J7030 ×2; 93005; 96360; 96361; 99285; G0378

== ENCOUNTER 2024-06-20 22:38 | Emergency (ER) | payer OTHER, MEDICARE ==
[2024-06-21 00:19] LABS: Absolute Eosinophils 0.1 K/uL (0-0.5); Absolute Lymphocytes (CBC) 0.7 K/uL (0.7-4.9); Absolute Monocytes 0.5 K/uL (0.1-1.3); Absolute Neutrophil 5.9 K/uL (1.8-8.0); Basophils % 0.3 % (0-1.3); Eosinophils % 1.1 % (0-4.4); Hematocrit 30.1 % (39.6-49.0); Hemoglobin 10.4 g/dL (13.6-17.9); Lymphocytes % 9.5 % (15.3-44.8); MCH 32.6 pg (27.0-35.0); MCHC 34.5 g/dL (32.0-36.0); MCV 94.5 fL (80-100); Monocytes % 7.2 % (3.3-12.3); Neutrophils % 81.9 % (41.7-73.7); Platelets 158 thou/uL (152-406); RBC Red Blood Cell Count 3.19 M/uL (4.33-5.43); Red Cell Distribution Width 14.7 % (12.1-15.2)
[2024-06-21 00:33] LABS: Albumin 3.9 g/dL (3.4-5.0); Albumin/Globulin Ratio 1.3 (1.1-1.8); Anion Gap 8.6 mEq/L (5.0-15.0); Bilirubin Total 0.2 mg/dL (0.2-1.0); Potassium 3.6 mEq/L (3.5-5.1); Protein, Total 6.9 g/dL (6.4-8.2); Troponin High Sensitivity 16.8 pg/mL (<58.9)
--- NOTE | 2024-06-21 01:06 | RAD REPORT ---
EXAM DESCRIPTION: XR CHEST 1 VIEW CLINICAL HISTORY: 73 years Male Chest pain. COMPARISON: Radiograph of Chest 04/24/2024. TECHNIQUE: 1 view study of the Chest was performed. FINDINGS: Cardiac silhouette is enlarged. Central vessels are moderately increased. No effusions bilaterally. Streaky perihilar and infrahilar airspace opacities bilaterally. No consoli dation. No pneumothorax. IMPRESSION: Enlarged heart with moderate central congestion. Bilateral perihilar and infrahilar infiltrate and at electatic change. Electronically signed by: Alana Cortes MD 06/21/2024 12:08 AM CDT RP Due to temporary technical issues with the PACS/[employer] reporting system, reports are being aparna d by the in-house radiologist without review as a courtesy to ensure prompt reporting the interpreting radiologist is fully responsible for the content of the report. Transcribed Date/Time: 06/21/2024 1:05 AM
--- NOTE | 2024-06-21 02:24 | EDPHYS ---
Physician Documentation [facility] Name: Eleuterio Baird Age: 73 yrs Sex: Male : 1950 Arrival Date: 06/20/2024 Time: 22:38 Bed 17 Private MD: ED Physician Felipe Chavarria HPI: 06/21 02:22 This 73 yrs old Male presents to ER via EMS with complaints of Slurred Speech.sp4 20:38 73-year-old male presents with complaint of near syncopal episode in the bathroom sp4 associated with shortness of breath and slurred speech. Patient is has history of multiple sclerosis, prior OK, neurogenic bladder, and chronic right-sided weakness. Mentation patient states that he is feeling fine. Patient's has arrived and contributed collateral information she states she is worried about him developing heart attack. SRS patient's chronic right side weakness is remaining unchanged . Historical: - Allergies: 00:49 Amantadine; aa10 00:49 Flagyl; aa10 - Home Meds: 00:49 atorvastatin 80 mg Oral tablet 1 tab daily [Active]; carbamazepine 200 mg Oral Tablet 2 aa10 tabs 2 times per day [Active]; cyanocobalamin (vitamin B-12) 1 injection kit every month [Active]; dimethyl fumarate 240 mg Oral capsule 1 cap 2 times per day [Active]; finasteride 5 mg Oral tablet 1 tab daily [Active]; gabapentin 300 mg Oral capsule 2 caps 3 times per day [Active]; latanoprost 0.005 % ophthalmic (eye) drops 1 drop every evening [Active]; levothyroxine 50 mcg capsule 1 cap once [Active]; lisinopril 5 mg Oral tablet 1 tab once [Active]; metoprolol tartrate 50 mg Oral tablet 0.5 tabs 2 times per day [Active]; oxybutynin chloride 5 mg Oral Tablet 1 tab 3 TIMES A DAY [Active]; Plavix 75 mg Oral tablet [Active]; potassium chloride 20 mEq Oral tablet 1 tab once [Active]; timolol maleate 0.25 % Opht drops 1 drop once [Active]; - PMHx: 00:49 HTN; OK; MS; Neurogenic bladder (self caths as needed); Right sided weakness (MS); aa10 Seizure; - PSHx: 00:49 Heart Stents; aa10 - Immunization history:: Adult Immunizations unknown. - Infectious Disease History:: Denies. - Social history:: Smoking status: unknown. - Family history:: not pertinent. ROS: 20:45 Constitutional: Negative for fever, chills, and weight loss, positive for syncope, sp4 slurred speech, and shortness of breath prior to arrival to 20:45 All other systems are negative, Exam: 20:45 Constitutional: patient who is awake, alert, and in no acute distress. Patient denied sp4 any complaints, patient is physically debilitated male with chronic right-sided weakness from reported multiple sclerosis. Head/Face: Normocephalic, atraumatic. Eyes: Pupils equal round and reactive to light, extra-ocular motions intact. Lids and lashes normal. Conjunctiva and sclera are not injected. Cornea within normal limits. Periorbital areas with no swelling, redness, or edema. ENT: Nares patent. No nasal discharge, no septal abnormalities noted. Tympanic membranes are normal and external auditory canals are clear. Oropharynx with no redness, swelling, or masses, exudates, or evidence of obstruction, uvula midline. Mucous membranes moist. Neck: Trachea midline, no thyromegaly or masses palpated, and no cervical lymphadenopathy. Supple, full range of motion without nuchal rigidity, or vertebral point tenderness. Chest/axilla: Normal chest wall appearance and motion. Nontender with no deformity. No lesions are appreciated. Cardiovascular: Regular rate and rhythm with a normal S1 and S2. No gallops, murmurs, or rubs. Normal PMI, no JVD. No pulse deficits. Respiratory: Lungs have equal breath sounds bilaterally, clear to auscultation and percussion. No rales, rhonchi or wheezes noted. No increased work of breathing, no retractions or nasal flaring. Abdomen/GI: Soft, with normal bowel sounds. No distension or tympany. No guarding or rebound. No evidence of tenderness throughout. Back: No spinal tenderness. No costovertebral tenderness. Skin: Warm, dry with normal turgor. Normal color with no rashes, no lesions, and no evidence of cellulitis. MS/ Extremity: Pulses equal, no cyanosis. Neurovascular intact. Full, normal range of motion. Neuro: Awake and alert, GCS 15, oriented to person, place, time, and situation. Cranial nerves II-XII grossly intact. Moderate right sided weakness reported as chronic. No aphasia or dysarthria. Psych: Awake, alert, with orientation to person, place and time. Behavior, mood, and affect are within normal limits 20:45 ECG was reviewed by the Attending Physician. EKG 0011 sinus bradycardia first-degree sp4 AV block rate 53 otherwise normal Vital Signs: 00:41 BP 135 / 58; Pulse 52; Resp 20; Temp 98.6; Pulse Ox 94% ; MAP 77 mmHg; aa10 00:53 BP 135 / 58; Pulse 51; Resp 20; Temp 98.6; Pulse Ox 96% on R/A; MAP 77 mmHg; aa10 02:30 BP 169 / 75; Pulse 62; Resp 20; Temp 98.4; Pulse Ox 95% on 2 lpm NC; MAP 100 mmHg; aa10 NIH Stroke Scale Scores: 00:55 NIHSS Score: 2 aa10 Teddy Coma Score: 20:45 Eye Response: spontaneous(4). Motor Response: obeys commands(6). Verbal Response: sp4 oriented(5). Total: 15. MDM: 06/20 23:40 Medical Screening Exam initiated 4 06/21 00:11 Consideration of Admission/Observation Escalation of care including sp4 admission/observation considered. ED course: Was evaluated in the emergency room. Patient was made to stand up and ambulate with assistance. Patient has chronic sided weakness and hemiparetic type gait from the reported deficits from multiple sclerosis, patient reports that he is back to his normal baseline. Patient would like to go home at this time. Based on exam findings patient is determined to be for discharge home. 20:45 Data reviewed: vital signs, nurses notes, EMS record, old medical records, lab test sp4 result(s), EKG. 06/20 22:52 Order name: CBC with Diff; Complete Time: 02:12 sp4 06/20 22:52 Order name: CMP; Complete Time: 02:12 sp4 06/20 22:52 Order name: Lipase; Complete Time: 02:12 sp4 06/20 22:52 Order name: Troponin High Sensitivity; Complete Time: 02:12 sp4 06/20 22:52 Order name: BNP; Complete Time: 02:12 sp4 06/20 22:53 Order name: Chest Single View XRAY; Complete Time: 20:49 sp4 06/20 22:52 Order name: IV Saline Lock; Complete Time: 00:00 sp4 06/20 22:52 Order name: Labs collected and sent; Complete Time: 00:00 sp4 06/20 22:53 Order name: EKG - Nurse/Tech; Complete Time: 00:23 sp4 EC:11 Rate is 53 beats/min. Rhythm is regular, Sinus bradycardia. QRS [place] is Normal. [place] sp4 interval is prolonged. QRS interval is normal. QT interval is normal. No Q waves. T waves are Normal. No ST changes noted. Clinical impression: No evidence of ischemia. Interpreted by me. Reviewed by me. Administered Medications: No medications were administered Point of Care Testin:52 done pre hospital aa10 Ranges: Critical Glucose Levels:Adult <50 mg/dl or >400 mg/dl <40 mg/dl or >180 mg/dl Disposition Summary: 06/21/24 02:24 Discharge Ordered Notes: Location: Home sp4 Problem: new sp4 Symptoms: have improved sp4 Condition: Stable sp4 Diagnosis - Multiple sclerosis sp4 - Acute dyspnea, Acute Generalized weakness sp4 Followup: sp4 - With: Private Physician - When: 7 - 10 days - Reason: Recheck today's complaints Discharge Instructions: - Discharge Summary Sheet sp4 - Multiple Sclerosis sp4 Forms: - Patient Portal Instructions sp4 NIH Stroke Scale - NIH Stroke Score Date: 06/21/2024 Time: 00:55 Total Score = 2 10. Dysarthria (speech clarity - read or repeat words) - 0(Normal) 11. Extinction and Inattention (visual/tactile/auditory/spatial/personal) - 0(No abnormality) 1a. Level of Consciousness (LOC) - 0(Alert) 1b. Level of Consciousness (LOC) (Month \T\ Age) - 2(Neither) 1c. LOC Commands (Open \T\ Closes Eyes/Composition Stone Applicator) - 0(Both) 2. Best Gaze (Lateral Gaze Paresis) - 0(Normal) 3. Visual Field Loss - 0(No visual loss) 4. Facial Palsy - 0(Normal) 5a. Left Arm: Motor (10-second hold) - 0(No drift) 5b. Right Arm: Motor (10-second hold) - 0(No drift) 6a. Left Leg: Motor (5-second hold - always test supine) - 0(No drift) 6b. Right Leg: Motor (5-second hold - always test supine) - 0(No drift) 7. Limb Ataxia (finger/nose \T\ heel/beard - test with eyes open) - 0(Absent) 8. Sensory Loss (pinprick arms/legs/face) - 0(Normal) 9. Best Language: Aphasia (description/naming/reading) - 0(No aphasia) Initials: aa10 Signatures: Dispatcher [employer] Felipe Choudhury MD MD sp4 Maribel Rudd RN RN aa10
--- NOTE | 2024-06-21 02:24 | ER ---
Nurse's Notes [facility] Name: Eleuterio Baird Age: 73 yrs Sex: Male : 1950 Arrival Date: 06/20/2024 Time: 22:38 Bed 17 Private MD: Diagnosis: Multiple sclerosis;Acute dyspnea, Acute Generalized weakness Presentation: 06/21 00:41 Chief complaint: Patient states: patient stated he was conscious throughout the aa10 episode, but unsure why he was making said sounds, stated, he has had similar episodes in the past, where patient had a stroke, she is concerned this might be another episode, as per , patient has had 13 stents, and multiple MA's,with background multiple sclerosis, patient is conscious, oriented and alert with GCS of 15/115 at this time, speech is intact, with no tongue deviation noted. EMS states: patient called EMS on account of hearing loud noises from the toilet from the patient, when she checked, patient head was tilted to the back with slurred sound coming out, patient was assisted out of the toilet sit, to prevent fall and brought to the hospital. Coronavirus screen: Client denies travel out of the [place] in the last 14 days. At this time, the client does not indicate any symptoms associated with coronavirus-19. Ebola Screen: Patient negative for fever greater than or equal to 101.5 degrees Fahrenheit, and additional compatible Ebola Virus Disease symptoms Patient denies exposure to infectious person. Patient denies travel to an Ebola-affected area in the 21 days before illness onset. No symptoms or risks identified at this time. No acute neurological deficit is noted. The patients blood glucose was checked before arriving to the hospital and was found to be normal. Initial Sepsis Screen: Does the patient meet any 2 criteria? No. Patient's initial sepsis screen is negative. Does the patient have a suspected source of infection? No. Patient's initial sepsis screen is negative. Risk Assessment: Do you want to hurt yourself or someone else? Patient reports no desire to harm self or others. Onset of symptoms was June 20, 2024 at 22:00. 00:41 Method Of Arrival: [facility] aa10 00:41 Acuity: SALOME 2 aa10 Triage Assessment: 00:51 The onset of the patients symptoms was June 20, 2024 at 22:00. General: Appears in no aa10 apparent distress. comfortable, well groomed, well developed, Behavior is calm, cooperative, appropriate for age. Pain: Denies pain. Neuro: No deficits noted. Level of Consciousness is awake, alert, obeys commands, Oriented to person, place, time, situation, Appropriate for age Toter are equal bilaterally Moves all extremities. Gait is steady, Speech is normal, Facial symmetry appears normal, Pupils are PERRLA, Intact Reports weakness since during slurred speech episode, stated he feels better at the moment. Cardiovascular: No deficits noted. Capillary refill < 3 seconds. Respiratory: No deficits noted. Airway is patent. GI: No deficits noted. Abdomen is non-distended. Stroke Activation: Physician: ED Attending; Name: elizabethlianeorin; Notified At: 00:48; Arrived At: 00:48 Physician: Mid-Level Provider; Name: ; Notified At: 00:48; Arrived At: Physician: [not used]; Name: ; Notified At: ; Arrived At: Physician: [not used]; Name: ; Notified At: ; Arrived At: Physician: [not used]; Name: ; Notified At: ; Arrived At: Historical: - Allergies: 00:49 Amantadine; aa10 00:49 Flagyl; aa10 - Home Meds: 00:49 atorvastatin 80 mg Oral tablet 1 tab daily [Active]; carbamazepine 200 mg Oral Tablet 2 aa10 tabs 2 times per day [Active]; cyanocobalamin (vitamin B-12) 1 injection kit every month [Active]; dimethyl fumarate 240 mg Oral capsule 1 cap 2 times per day [Active]; finasteride 5 mg Oral tablet 1 tab daily [Active]; gabapentin 300 mg Oral capsule 2 caps 3 times per day [Active]; latanoprost 0.005 % ophthalmic (eye) drops 1 drop every evening [Active]; levothyroxine 50 mcg capsule 1 cap once [Active]; lisinopril 5 mg Oral tablet 1 tab once [Active]; metoprolol tartrate 50 mg Oral tablet 0.5 tabs 2 times per day [Active]; oxybutynin chloride 5 mg Oral Tablet 1 tab 3 TIMES A DAY [Active]; Plavix 75 mg Oral tablet [Active]; potassium chloride 20 mEq Oral tablet 1 tab once [Active]; timolol maleate 0.25 % Opht drops 1 drop once [Active]; - PMHx: 00:49 HTN; MA; MS; Neurogenic bladder (self caths as needed); Right sided weakness (MS); aa10 Seizure; - PSHx: 00:49 Heart Stents; aa10 - Immunization history:: Adult Immunizations unknown. - Infectious Disease History:: Denies. - Social history:: Smoking status: unknown. - Family history:: not pertinent. Screenin:57 [facility] ED Fall Risk Assessment (Adult) History of falling in the last 3 months, aa10 including since admission No falls in past 3 months (0 pts) Confusion or Disorientation No (0 pts) Intoxicated or Sedated No (0 pts) Impaired Gait No (0 pts) Mobility Assist Device Used No (0 pt) Altered Elimination No (0 pt) Score/Fall Risk Level 3 or more points = High Risk Oriented to surroundings, Maintained a safe environment, Educated pt \T\ family on fall prevention, incl call for assistance when getting out of bed, Assessed \T\ reinforced patient's understanding of fall precautions, Provided non-skid footwear, Hourly rounding (assess needs \T\ fall precautionary measures) done, Used ambulatory aids as needed (educated on \T\ assisted with), Implemented a Fall Risk Plan of Care. Abuse screen: Denies threats or abuse. Denies injuries from another. Nutritional screening: No deficits noted. Tuberculosis screening: No symptoms or risk factors identified. Assessment: 00:55 VAN Scoring: Arm Drift: Patients demonstrates NO arm weakness. Patient is VAN Negative. aa10 Visual Disturbance: No visual disturbance noted. Aphasia: No aphasia noted. Neglect: No neglect noted. [place] Swallow Protocol Exclusion Criteria: Brief Cognitive Screen What is your name? Normal, Where are you right now? Normal, What year is it? Normal. Oral Mechanism Examination Facial Symmetry: Normal, Motion: Normal, Lip Closure: Normal, Oral Mechanism Result: Normal. 3 oz Water Swallow Challenge: Pt able to drink all water without stopping, coughing, choking or throat clearing: Yes Result: ALICE COBURN Notified: Felipe Chavarria MD. TNKase (Tenecteplase) Screening: Not Applicable. Vital Signs: 00:41 BP 135 / 58; Pulse 52; Resp 20; Temp 98.6; Pulse Ox 94% ; MAP 77 mmHg; aa10 00:53 BP 135 / 58; Pulse 51; Resp 20; Temp 98.6; Pulse Ox 96% on R/A; MAP 77 mmHg; aa10 02:30 BP 169 / 75; Pulse 62; Resp 20; Temp 98.4; Pulse Ox 95% on 2 lpm NC; MAP 100 mmHg; aa10 Teddy Coma Score: 20:45 Eye Response: spontaneous(4). Motor Response: obeys commands(6). Verbal Response: sp4 oriented(5). Total: 15. NIH Stroke Scale Scores: 00:55 NIHSS Score: 2 aa10 ED Course: 06/20 22:47 Patient arrived in ED. kmf 22:52 Felipe Chavarria MD is Attending Physician. sp4 23:40 Chest Single View XRAY In Process Unspecified. EDMS 06/21 00:00 BNP Sent. aa10 00:00 Troponin High Sensitivity Sent. aa10 00:00 CBC with Diff Sent. aa10 00:00 CMP Sent. aa10 00:00 Lipase Sent. aa10 00:24 BNP Sent. aa10 00:24 Troponin High Sensitivity Sent. aa10 00:24 CBC with Diff Sent. aa10 00:24 CMP Sent. aa10 00:24 Lipase Sent. aa10 00:49 Triage completed. aa10 00:58 Patient has correct armband on for positive identification. Allergy band placed. Fall aa10 risk band placed. Placed in gown. Bed in low position. Side rails up X 1. Side rails up X2. Provided Education on: about plan of care. 02:33 No provider procedures requiring assistance completed. IV discontinued. aa10 02:34 Arm band placed on right wrist. Patient placed in view of staff members, on oxygen, on aa10 telemetry monitor, on pulse oximetry. EKG completed in triage. Results shown to MD. Administered Medications: No medications were administered Medication: 00:57 VIS not applicable for this client. aa10 Point of Care Testin:52 done pre hospital aa10 Ranges: Outcome: 02:24 Discharge ordered by MD. sp4 02:34 Discharged to home via wheelchair, aa10 02:34 Condition: good 02:34 Discharge instructions given to patient, Instructed on discharge instructions, Demonstrated understanding of instructions, 02:51 Patient left the ED. aa10 NIH Stroke Scale - NIH Stroke Score Date: 06/21/2024 Time: 00:55 Total Score = 2 10. Dysarthria (speech clarity - read or repeat words) - 0(Normal) 11. Extinction and Inattention (visual/tactile/auditory/spatial/personal) - 0(No abnormality) 1a. Level of Consciousness (LOC) - 0(Alert) 1b. Level of Consciousness (LOC) (Month \T\ Age) - 2(Neither) 1c. LOC Commands (Open \T\ Closes Eyes/Bi Application Developer) - 0(Both) 2. Best Gaze (Lateral Gaze Paresis) - 0(Normal) 3. Visual Field Loss - 0(No visual loss) 4. Facial Palsy - 0(Normal) 5a. Left Arm: Motor (10-second hold) - 0(No drift) 5b. Right Arm: Motor (10-second hold) - 0(No drift) 6a. Left Leg: Motor (5-second hold - always test supine) - 0(No drift) 6b. Right Leg: Motor (5-second hold - always test supine) - 0(No drift) 7. Limb Ataxia (finger/nose \T\ heel/beard - test with eyes open) - 0(Absent) 8. Sensory Loss (pinprick arms/legs/face) - 0(Normal) 9. Best Language: Aphasia (description/naming/reading) - 0(No aphasia) Initials: aa10 Signatures: Dispatcher [employer] Felipe Choudhury MD MD sp4 Mirtha Cole Ayoku, RN RN aa10
[2024-06-21 03:00] VITALS: BP 169/75; TEMP 98.4; O2SAT 95
--- NOTE | 2024-06-22 08:39 | EKG ---
Test Date: 2024-06-21 Test Time: 00:11:57 Claim Review Medical Director: STORM MEASUREMENT RESULTS: Intervals: Rate: 53 TN: 240 QRSD: 106 QT: 456 QTc: 427 [place]: P: 73 TN: 240 QRS: 14 T: 50 INTERPRETIVE STATEMENTS: Sinus bradycardia with 1st degree AV block Nonspecific ST and T wave abnormality Abnormal ECG Compared to ECG 04/24/2024 02:39:33 Sinus arrhythmia no longer present Myocardial infarct finding no longer present Possible ischemia no longer present ST (T wave) deviation still present Electronically Signed On 06-22-24 08:36:17 CDT by Cuauhtemoc Mcarthur
== END 2024-06-21 02:51 | disposition home or self-care (01) ==
LOC: ER 22:38
DX: G35 Multiple sclerosis (principal); R06.00 Dyspnea, unspecified; R55 Syncope and collapse; I10 Essential (primary) hypertension; I25.2 Old myocardial infarction; Z95.818 Presence of other cardiac implants and grafts; Z79.01 Long term (current) use of anticoagulants
CPT/HCPCS: 36415; 71045; 80053; 83690; 83880; 84484; 85025; 93005

== ENCOUNTER 2024-08-08 18:33 | Emergency (ER) | payer OTHER, MEDICARE ==
--- NOTE | 2024-08-08 20:23 | RAD REPORT ---
EXAMINATION: Head C Spine Mpr Wo Con CLINICAL INDICATION: Male, 73 years old. TRAUMA TECHNIQUE: Axial CT images from the skull base to the vertex without intravenous contrast. Axial CT i mages through the cervical spine were obtained without intravenous contrast. Sagittal and coronal reformatted images were created from the data set. Coronal and sagittal reformatted images were creat ed from the data set. One or more of the following dose reduction techniques were used: Automated exposure control, adjustment of the mA and/or kV according to patient size, and/or iterative reconstr uction. Unless otherwise specified, incidental findings do not require dedicated imaging follow-up. [id number]. COMPARISON: 04/03/2024 FINDINGS: Head: INTRACRANIAL: No acute intracranial hemorrhage. No hydrocephalus. No mass effect or midline shift. Mi ld chronic small vessel ischemic changes.Moderate cerebral atrophy. VASCULATURE: No visualized abnormalities in the arteries or dural venous sinuses. SCALP/SKULL: No calvarial fracture identified. No acute soft tissue abnormality. SINUSES: The visualized paranasal sinuses are mostly clear. No significant mastoid fluid. Cervical spine: ALIGNMENT: The cervical spine has normal alignment without scoliosis or spondylolisthesis. BONE: Vertebral body heights are maintained. No aggressive osseous lesions. DEGENERATIVE: Multilevel cervical spondylosis with evidence of bilateral neural foraminal narrowing. No high grade central spinal stenosis. Severe neural foraminal narrowing is present on the left at C6-7 and on the right and C4-5, C5-6, and C6-7. There is moderate on the left at C3-4. SOFT TISSUE: No significant abnormalities in the soft tissue of the neck. The visualized lung apices are clear. Carotid artery calcifications. IMPRESSION: No acute intracranial abnormality. No acute fracture or traumatic malalignment of the cervical spine.
[2024-08-08] MEDS ORDERED: LIDOCAINE 1% 20 ML MDV ONE (21:21)
--- NOTE | 2024-08-08 21:37 | EDPHYS ---
Physician Documentation [facility] Name: Eleuterio Baird Age: 73 yrs Sex: Male : 1950 Arrival Date: 08/08/2024 Time: 18:33 Bed 3 Private MD: ED Physician Felipe Chavarria HPI: 08/08 19:31 This 73 yrs old Male presents to ER via Wheelchair with complaints of Head Injury-Adult.sp3 19:32 This 73 yrs old Male presents to ER via Wheelchair with complaints of Head Injury-Adult.sp3 19:32 73-year-old male with a history of [place], seizures, recent CVA currently on Lovenox sp3 presents for a mechanical fall where he fell and hit the side fireplace superficial lacerations to the posterior occiput with bleeding controlled. Patient was dazed but did not lose consciousness. No new neurological complaints or symptoms noted. No neck pain reported. ROS otherwise negative.. Historical: - Allergies: 18:45 Amantadine; ll1 18:45 Flagyl; ll1 - PMHx: 18:45 HTN; Neurogenic bladder (self caths as needed); MS; Right sided weakness (MS); [place]; ll1 Seizure; Cerebrovascular accident; - PSHx: 18:45 Heart Stents; aortic stents; ll1 - Immunization history:: Adult Immunizations up to date. - Infectious Disease History:: Denies. - Social history:: Smoking status: Patient denies any tobacco usage or history of. ROS: 19:33 Constitutional: Negative for fever, chills, and weight loss, Eyes: Negative for injury, sp3 pain, redness, and discharge, ENT: Negative for injury, pain, and discharge, Neck: Negative for injury, pain, and swelling, Cardiovascular: Negative for chest pain, palpitations, and edema, Respiratory: Negative for shortness of breath, cough, wheezing, and pleuritic chest pain, Abdomen/GI: Negative for abdominal pain, nausea, vomiting, diarrhea, and constipation, Back: Negative for injury and pain, MS/Extremity: Negative for injury and deformity, Psych: Negative for depression, anxiety, suicide ideation, homicidal ideation, and hallucinations, Allergy/Immunology: Negative for hives, rash, and allergies, Endocrine: Negative for neck swelling, polydipsia, polyuria, polyphagia, and marked weight changes, Hematologic/Lymphatic: Negative for swollen nodes, abnormal bleeding, and unusual bruising, 19:33 All other systems are negative, Exam: 19:34 Constitutional: This is a well developed, well nourished patient who is awake, alert, sp3 and in no acute distress. Eyes: Pupils equal round and reactive to light, extra-ocular motions intact. Lids and lashes normal. Conjunctiva and sclera are non-icteric and not injected. Cornea within normal limits. Periorbital areas with no swelling, redness, or edema. Neck: Trachea midline, no thyromegaly or masses palpated, and no cervical lymphadenopathy. Supple, full range of motion without nuchal rigidity, or vertebral point tenderness. No Meningismus. Chest/axilla: Normal chest wall appearance and motion. Nontender with no deformity. No lesions are appreciated. Cardiovascular: Regular rate and rhythm with a normal S1 and S2. No gallops, murmurs, or rubs. Normal PMI, no JVD. No pulse deficits. Respiratory: Lungs have equal breath sounds bilaterally, clear to auscultation and percussion. No rales, rhonchi or wheezes noted. No increased work of breathing, no retractions or nasal flaring. Abdomen/GI: Soft, non-tender, with normal bowel sounds. No distension or tympany. No guarding or rebound. No evidence of tenderness throughout. Back: No spinal tenderness. No costovertebral tenderness. Full range of motion. MS/ Extremity: Pulses equal, no cyanosis. Neurovascular intact. Full, normal range of motion. Neuro: Awake and alert, GCS 15, oriented to person, place, time, and situation. Cranial nerves II-XII grossly intact. Motor strength 5/5 in all extremities. Sensory grossly intact. Cerebellar exam normal. Normal gait. Psych: Awake, alert, with orientation to person, place and time. Behavior, mood, and affect are within normal limits. 19:34 Head/face: Patient has posterior hematoma at the occiput with two 4 cm superficial lacerations not requiring repair.. Vital Signs: 18:45 BP 191 / 78; Pulse 64; Resp 17; Temp 97.8; Pulse Ox 99% on R/A; Weight 74.84 kg; Height ll1 5 ft. 7 in. ; Pain 0/10; 19:44 BP 152 / 73; Pulse 62; Resp 18; Temp 97.8; Pulse Ox 99% ; Pain 0/10; bm8 20:33 BP 139 / 67; Pulse 61; Resp 17; Pulse Ox 96% ; jj7 20:57 BP 139 / 67; Pulse 64; Resp 17; Temp 97.8; Pulse Ox 96% ; Pain 0/10; bm8 21:42 BP 150 / 64; Pulse 65; Resp 18; Temp 97.8; Pulse Ox 96% ; Pain 0/10; bm8 21:45 BP 150 / 64; Pulse 63; Resp 17; Temp 98; Pulse Ox 97% ; jj7 18:45 Body Mass Index 25.84 (74.84 kg, 170.18 cm) ll1 18:45 Pain Scale: Adult ll1 19:44 Pain Scale: Adult bm8 20:57 Pain Scale: Adult bm8 21:42 Pain Scale: Adult bm8 Teddy Coma Score: 18:45 Eye Response: spontaneous(4). Motor Response: obeys commands(6). Verbal Response: ll1 oriented(5). Total: 15. 19:44 Eye Response: spontaneous(4). Motor Response: obeys commands(6). Verbal Response: bm8 oriented(5). Total: 15. 20:57 Eye Response: spontaneous(4). Motor Response: obeys commands(6). Verbal Response: bm8 oriented(5). Total: 15. 21:42 Eye Response: spontaneous(4). Motor Response: obeys commands(6). Verbal Response: bm8 oriented(5). Total: 15. Laceration: 21:34 Wound Repair of 1cm ( 0.4in ) subcutaneous laceration to left parietal area. sp4 Irregularly shaped.. Minimal contamination.. Minimal bleeding noted.. Distal neuro/vascular/tendon intact. Anesthesia: Wound infiltrated with 6 mls of 1% lidocaine. Wound prep: Moderate cleansing by me, Copious irrigation. Skin closed with 3 4-0 Silk using interrupted sutures and sterile technique. Dressed with Neosporin. Patient tolerated well. MDM: 18:52 Medical Screening Exam initiated sp3 19:35 Data reviewed: vital signs, nurses notes, radiologic studies. ED course: 73-year-old sp3 male with closed head injury on Lovenox. Clinically stable. Will obtain CT scan of the head and C-spine and if negative, patient can be discharged home.. 21:17 Differential diagnosis: Contusion of Hematoma on Laceration of Intracranial bleed- sp4 Concussion cerebral contusion. ED course: COMPARISON: 04/03/2024 FINDINGS: Head: INTRACRANIAL: No acute intracranial hemorrhage. No hydrocephalus. No mass effect or midline shift. Mild chronic small vessel ischemic changes.Moderate cerebral atrophy. VASCULATURE: No visualized abnormalities in the arteries or dural venous sinuses. SCALP/SKULL: No calvarial fracture identified. No acute soft tissue abnormality. SINUSES: The visualized paranasal sinuses are mostly clear. No significant mastoid fluid. Cervical spine: ALIGNMENT: The cervical spine has normal alignment without scoliosis or spondylolisthesis. BONE: Vertebral body heights are maintained. No aggressive osseous lesions. DEGENERATIVE: Multilevel cervical spondylosis with evidence of bilateral neural foraminal narrowing. No high grade central spinal stenosis. Severe neural foraminal narrowing is present on the left at C6-7 and on the right and C4-5, C5-6, and C6-7. There is moderate on the left at C3-4. SOFT TISSUE: No significant abnormalities in the soft tissue of the neck. The visualized lung apices are clear. Carotid artery calcifications. IMPRESSION: No acute intracranial abnormality. No acute fracture or traumatic malalignment of the cervical spine. . 08/08 18:37 Order name: CT Head C Spine sp3 Administered Medications: No medications were administered Disposition Summary: 08/08/24 21:36 Discharge Ordered Notes: suture removal advised after 20 days Location: Home sp4 Problem: new sp4 Symptoms: have improved sp4 Condition: Stable sp4 Diagnosis - Laceration without foreign body of scalp sp4 - Acute fall, closed head injury, posterior scalp laceration sp4 Followup: sp4 - With: Private Physician - When: 10 - 14 days - Reason: Recheck today's complaints Discharge Instructions: - Discharge Summary Sheet sp4 - Laceration Care, Adult, [id number] sp4 Forms: - Patient Portal Instructions sp4 Signatures: Dispatcher [employer] Shahana Carroll RN RN ll1 Charley Rosales MD MD sp3 Fina Tsang RN RN mb9 Potepalov, Felipe, MD MD sp4
--- NOTE | 2024-08-08 21:37 | ER ---
Nurse's Notes [facility] Name: Eleuterio Baird Age: 73 yrs Sex: Male : 1950 Arrival Date: 08/08/2024 Time: 18:33 Bed 3 Private MD: Diagnosis: Laceration without foreign body of scalp;Acute fall, closed head injury, posterior scalp laceration Presentation: 08/08 18:45 Chief complaint: Patient states: Fell 30 min [employer]. Hit head on fireplace, denies LOC. ll1 Laceration to L posterior scalp area, bleeding controlled with dressing held in place. + blood thinners, he just had a stroke 3 weeks ago. Coronavirus screen: Client denies travel out of the [place] in the last 14 days. At this time, the client does not indicate any symptoms associated with coronavirus-19. Ebola Screen: Patient denies travel to an Ebola-affected area in the 21 days before illness onset. Mechanism of Injury: The problem was sustained at home, resulted from a fall. Initial Sepsis Screen: Does the patient meet any 2 criteria? No. Patient's initial sepsis screen is negative. Does the patient have a suspected source of infection? No. Patient's initial sepsis screen is negative. Risk Assessment: Do you want to hurt yourself or someone else? Patient reports no desire to harm self or others. Onset of symptoms was August 08, 2024. 18:45 Method Of Arrival: Wheelchair ll1 18:45 Acuity: SALOME 2 ll1 Triage Assessment: 18:48 General: Appears distressed, uncomfortable, Behavior is calm, cooperative, appropriate ll1 for age. Pain: Denies pain. Neuro: Denies headache. Derm: Reports laceration scalp. 18:50 Neuro: Reports. mb9 Historical: - Allergies: 18:45 Amantadine; ll1 18:45 Flagyl; ll1 - PMHx: 18:45 HTN; Neurogenic bladder (self caths as needed); MS; Right sided weakness (MS); [place]; ll1 Seizure; Cerebrovascular accident; - PSHx: 18:45 Heart Stents; aortic stents; ll1 - Immunization history:: Adult Immunizations up to date. - Infectious Disease History:: Denies. - Social history:: Smoking status: Patient denies any tobacco usage or history of. Screenin:[birth year] [facility] ED Fall Risk Assessment (Adult) History of falling in the last 3 months, mb9 including since admission Yes- fall prone (multiple falls) (3 pts) Confusion or Disorientation No (0 pts) Intoxicated or Sedated No (0 pts) Impaired Gait No (0 pts) Mobility Assist Device Used No (0 pt) Altered Elimination No (0 pt) Score/Fall Risk Level 3 or more points = High Risk Oriented to surroundings, Maintained a safe environment, Educated pt \T\ family on fall prevention, incl call for assistance when getting out of bed. Abuse screen: Denies threats or abuse. Nutritional screening: No deficits noted. Tuberculosis screening: No symptoms or risk factors identified. Assessment: 18:52 General: Appears in no apparent distress. Behavior is calm, cooperative. Pain: mb9 Complains of pain in scalp. Neuro: Gonzalez Agitation-Sedation Scale (RASS): 0 - Alert and Calm Level of Consciousness is awake, alert, obeys commands, Oriented to person, place, time, situation, Appropriate for age. Cardiovascular: Patient's skin is warm and dry. Respiratory: Airway is patent Respiratory effort is even, unlabored, Respiratory pattern is regular, symmetrical. GI: Abdomen is round non-distended. : No signs and/or symptoms were reported regarding the genitourinary system. EENT: No signs and/or symptoms were reported regarding the EENT system. Derm: Skin is pink, warm \T\ dry. Musculoskeletal: Range of motion: intact in all extremities. Injury Description: Laceration sustained to scalp is clean, not bleeding. 19:27 Reassessment: Patient is alert, oriented x 3, equal unlabored respirations, skin jj7 warm/dry/pink. General: Appears in no apparent distress. comfortable, Behavior is calm, cooperative, appropriate for age. Derm: Wound noted occipital area and left occipital area Other: small skin tear. 19:44 Reassessment: Patient appears in no apparent distress at this time. Patient and/or bm8 family updated on plan of care and expected duration. Pain level reassessed. Patient denies pain at this time. General: Appears in no apparent distress. comfortable, Behavior is calm, cooperative, appropriate for age. Pain: Denies pain. Neuro: Level of Consciousness is awake, alert, obeys commands, Oriented to person, place, situation, Appropriate for age. Cardiovascular: Denies chest pain, Capillary refill < 3 seconds in bilateral fingers Patient's skin is warm and dry. Respiratory: Airway is patent Respiratory effort is even, unlabored, Respiratory pattern is regular, symmetrical. GI: No signs and/or symptoms were reported involving the gastrointestinal system. : No signs and/or symptoms were reported regarding the genitourinary system. EENT: No signs and/or symptoms were reported regarding the EENT system. Derm: Skin is pink, warm \T\ dry. Wound noted left occipital area and occipital area. Musculoskeletal: No signs and/or symptoms reported regarding the musculoskeletal system. 20:57 Reassessment: Patient appears in no apparent distress at this time. Patient and/or bm8 family updated on plan of care and expected duration. Pain level reassessed. Patient is alert, oriented x 3, equal unlabored respirations, skin warm/dry/pink. head wound cleaned. Patient denies pain at this time. 21:42 Reassessment: Patient appears in no apparent distress at this time. No changes from 8 previously documented assessment. Patient and/or family updated on plan of care and expected duration. Pain level reassessed. Patient is alert, oriented x 3, equal unlabored respirations, skin warm/dry/pink. Vital Signs: 18:45 BP 191 / 78; Pulse 64; Resp 17; Temp 97.8; Pulse Ox 99% on R/A; Weight 74.84 kg; Height ll1 5 ft. 7 in. ; Pain 0/10; 19:44 BP 152 / 73; Pulse 62; Resp 18; Temp 97.8; Pulse Ox 99% ; Pain 0/10; bm8 20:33 BP 139 / 67; Pulse 61; Resp 17; Pulse Ox 96% ; jj7 20:57 BP 139 / 67; Pulse 64; Resp 17; Temp 97.8; Pulse Ox 96% ; Pain 0/10; bm8 21:42 BP 150 / 64; Pulse 65; Resp 18; Temp 97.8; Pulse Ox 96% ; Pain 0/10; bm8 21:45 BP 150 / 64; Pulse 63; Resp 17; Temp 98; Pulse Ox 97% ; jj7 18:45 Body Mass Index 25.84 (74.84 kg, 170.18 cm) ll1 18:45 Pain Scale: Adult ll1 19:44 Pain Scale: Adult bm8 20:57 Pain Scale: Adult bm8 21:42 Pain Scale: Adult bm8 [place] Coma Score: 18:45 Eye Response: spontaneous(4). Motor Response: obeys commands(6). Verbal Response: ll1 oriented(5). Total: 15. 19:44 Eye Response: spontaneous(4). Motor Response: obeys commands(6). Verbal Response: bm8 oriented(5). Total: 15. 20:57 Eye Response: spontaneous(4). Motor Response: obeys commands(6). Verbal Response: bm8 oriented(5). Total: 15. 21:42 Eye Response: spontaneous(4). Motor Response: obeys commands(6). Verbal Response: bm8 oriented(5). Total: 15. ED Course: 18:35 Patient arrived in ED. im 18:37 Charley Rosales MD is Attending Physician. sp3 18:44 Arm band placed on Patient placed in an exam room, on a stretcher. ll1 18:48 Triage completed. ll1 18:49 Bed in low position. Call light in reach. Side rails up X 1. Provided Education on: mb9 press call light if needing anything. Client placed on continuous cardiac and pulse oximetry monitoring. NIBP monitoring applied. 18:50 No provider procedures requiring assistance completed. mb9 18:52 Fina Tsang, HARPER is Primary Nurse. mb9 19:50 Attending Physician role handed off by Charley Rosales MD sp4 19:50 Felipe Chavarria MD is Attending Physician. sp4 20:10 CT Head C Spine In Process Unspecified. EDMS 21:28 Assist provider with laceration repair on back of head that was 2.5 cm. or less using [id number] sutures. Set up tray. Performed by Felipe Chavarria MD Patient tolerated well. 21:47 Patient did not have IV access during this emergency room visit. jj7 Administered Medications: No medications were administered Medication: 18:50 VIS not applicable for this client. mb9 Outcome: 21:36 Discharge ordered by . sp4 21:46 Discharged to home via wheelchair, with family, negin 21:46 Condition: improved 21:46 Discharge instructions given to patient, family, Instructed on discharge instructions, follow up and referral plans. wound care, Demonstrated understanding of instructions, follow-up care, wound care, 21:47 Patient left the ED. jj7 Signatures: Dispatcher [employer] EDShahana Huynh, RN RN ll1 Charley Rosales MD MD sp3 Kathrin Salvador RN RN jj7 Sharan, Fina Vieira RN RN mb9 Felipe Chavarria MD MD sp4 Lynsey Loredo Brad RN RN bm8
[2024-08-08 22:07] VITALS: BP 150/64; TEMP 98; O2SAT 97
== END 2024-08-08 21:47 | disposition home or self-care (01) ==
LOC: ER 18:33
DX: S01.01XA Laceration without foreign body of scalp, initial encounter (principal); W18.30XA Fall on same level, unspecified, initial encounter; Z86.73 Personal history of transient ischemic attack (TIA), and cerebral infarction without residual deficits; Z79.01 Long term (current) use of anticoagulants; Z95.818 Presence of other cardiac implants and grafts
CPT/HCPCS: 12001; 70450; 72125; 99284; J2003

== ENCOUNTER 2024-11-03 16:26 | Inpatient (IN) | payer OTHER, MEDICARE ==
[2024-11-03 19:40] VITALS: BMI 25.8
[2024-11-03] MEDS ORDERED: FLEET ENEMA ADULT PR PRN (20:08)
[2024-11-03] MEDS ORDERED: POLYETHYL GLY 3350 17 GM/DOSE PO PRN (20:10)
[2024-11-03] MEDS ORDERED: CLOBETASOL 0.05 % CREAM 15GM TOP PRN (20:16)
[2024-11-03] MEDS: LATANOPROST 0.005% 2.5ML OPTH OPTH SCH (21:00)
[2024-11-03] MEDS: ATORVASTATIN 80 MG TAB PO SCH (21:44)
[2024-11-03] MEDS: OXYBUTYNIN ER 5 MG TAB PO SCH (21:44)
[2024-11-03] MEDS: TECFIDERA 240 MG PO SCH (21:45)
[2024-11-03] MEDS: HYDROCODONE/APAP 5/325 MG TAB PO PRN (21:50)
[2024-11-04] MEDS: ACETAMINOPHEN 325 MG TABLET PO PRN (00:33)
[2024-11-04 04:58] LABS: Absolute Lymphocytes (CBC) 0.6 K/uL (0.7-4.9); Hematocrit 23.5 % (39.6-49.0); Hemoglobin 8.0 g/dL (13.6-17.9); MCH 33.0 pg (27.0-35.0); MCHC 34.1 g/dL (32.0-36.0); MCV 96.6 fL (80-100); MPV 7.9 fL (7.6-11.3); Nucleated RBC Absolute Count 0.0 (0-0); Nucleated Red Blood Cells % 0.0 % (0-0); RBC Red Blood Cell Count 2.43 M/uL (4.33-5.43); White Blood Count 4.70 thou/uL (4.3-10.9)
[2024-11-04 05:16] LABS: Albumin 3.2 g/dL (3.4-5.0); Anion Gap 9.0 mEq/L (5.0-15.0); BUN Blood Urea Nitrogen 16.0 mg/dL (7-18); Glucose Level 98.0 mg/dL (74-106); Magnesium 2.0 mg/dL (1.6-2.4); Potassium 4.0 mEq/L (3.5-5.1); Prealbumin 23.6 mg/dL (20-40)
[2024-11-04 06:23] LABS: Urine Microscopic Reflex YN NO UMIC
[2024-11-04] MEDS: LEVOTHYROXINE SOD 0.05 MG TABLET PO SCH (06:27)
[2024-11-04] MEDS: HYDROCODONE/APAP 5/325 MG TAB PO PRN (06:27)
[2024-11-04] MEDS: ACYCLOVIR 400 MG TABLET PO SCH (08:00)
[2024-11-04] MEDS ORDERED: TECFIDERA 240 MG PO SCH (08:00)
[2024-11-04] MEDS ORDERED: DOCUSATE NA 100 MG CAP PO SCH (08:00)
[2024-11-04] MEDS: TIMOLOL MALEATE 0.5% OPTH 5 ML BTL EACH EYE SCH (08:00)
[2024-11-04] MEDS: LYSINE 500 MG PO SCH (08:00)
[2024-11-04 08:44] LABS: Differential Total Cells Count 100
[2024-11-04 08:46] LABS: Segmented Neutrophils 83 % (40-80)
[2024-11-04 08:47] LABS: Blood Morphology Comment NOT SEEN (NOT SEEN)
[2024-11-04] MEDS: GABAPENTIN 300 MG CAP PO SCH (09:18)
[2024-11-04] MEDS: ASPIRIN 325 MG TAB PO SCH (09:19)
[2024-11-04] MEDS: FERROUS SULFATE 325 MG TAB PO SCH (09:19)
[2024-11-04] MEDS: carBAMazepine 200 MG TAB PO SCH ×2 (09:19→13:25)
[2024-11-04] MEDS: SODIUM CHLORIDE 1 GM TAB PO SCH (09:19)
[2024-11-04] MEDS: VITAMIN D 5,000 UNIT CAP PO SCH (09:20)
[2024-11-04] MEDS: CLOPIDOGREL 75 MG TABLET PO SCH (09:20)
[2024-11-04] MEDS: FINASTERIDE 5 MG TAB PO SCH (09:20)
[2024-11-04] MEDS: DOCUSATE NA 100 MG CAP PO SCH (09:20)
[2024-11-04] MEDS: METOPROLOL XL 25 MG TAB PO SCH (09:20)
[2024-11-04] MEDS: LIDOCAINE 4% PATCH TOP SCH (09:23)
[2024-11-04] MEDS: MAGNESIUM OXIDE 400 MG TAB PO SCH (09:42)
[2024-11-04] MEDS: CYCLOBENZAPRINE 10 MG TAB PO PRN (13:31)
[2024-11-04] MEDS: LATANOPROST 0.005% 2.5ML OPTH *PT OWN MED OPTH SCH (20:20)
[2024-11-05] MEDS: TIMOLOL MALEATE 0.5% OPTH 5 ML BTL *PT OWN MED OPTH SCH (07:44)
[2024-11-05] MEDS: FE SULF/FA/VIT B COMP & C TAB PO SCH (07:45)
[2024-11-05] MEDS: TRAMADOL HCL 50 MG TAB PO SCH (07:46)
--- NOTE | 2024-11-05 08:34 | HP ---
Date of Admission: 11/03/2024 Time Of Service: 4 p.m. Chief Complaint: "Fell and broke my right hip." History Of Present Illness: Mr. Baird is a 73-year-old patient with multiple sclerosis, on Tecfidera. He had a stroke in 2023, with right footdrop, right-sided weakness and spasms, coronary artery dise ase, hypertension, seizures, trigeminal neuralgia, neurogenic bladder requiring intermittent catheter ization by his , who was at baseline despite his MS and stroke. He was able to ambula te independently with a Rollator and a wheelchair and did manage to ambulate also with a cane. He di d require supervision for his activities of daily living. While the patient was getting out of his car after his had parked on a slope taking him to an ap pointment, he tried to exit the truck, lost his footing and fell. He impacted his right side to have severe pain, was taken to Medicine, where he was evaluated and found to have a minimally displaced intertrochanteric fracture of the right femur. The orthopedic service and Cardiology servi ce were consulted and after the patient was cleared for surgery, he underwent open reduction internal fixation with a cephalomedullary nailing done. He was put at weightbearing as tolerated status with right lower extremity. Postoperatively, his course was complicated by anemia, hyponatremia, and the need for continued cardiac monitoring due to his coronary artery disease, in addition hypertension. He has also postoperative anemia. His multiple sclerosis was managed by continuing his Tecfidera 24 0 mg twice daily. He had spasticity addressed with multiple modalities including the carbamazepine a nd gabapentin, which were also used for seizures and trigeminal neuralgia. Oxybutynin and straight c atheterization used for neurogenic bladder. He had aspirin for reducing risk of stroke, metoprolol f or hypertension and heart rate control, and he had hyponatremia addressed with sodium supplementation . In addition, he required oxygen via nasal cannula, especially at nighttime and when supine. He was evaluated by the therapy service and found to be in significant decline in functioning, requir ing moderate assistance for bed mobility, minimum assistance for phw-kn-jrqea transfers, moderate ass istance for ambulation, running 2 or 3 steps forward and backwards. Also needed significant assistan ce to go on and off the commode, to get in and out of the shower. His did note he had 6 days of constipation and when oral medications did not work, he had a suppository, which eventually worked. As a result of his acute condition and need for comorbid condition management versus fracture in the right hip, he is determined to be an appropriate candidate for aggressive inpatient rehabilitation t o help him return to his prior level of functioning and reduce risk of rehospitalization. Past Medical History: As noted above, including hypertension, dyslipidemia, coronary artery disease, obstructive sleep apnea, multiple sclerosis on Tecfidera, neurogenic bladder, seizures, left trigemi nal neuralgia, fpx-XS-wguiucn myocardial infarction status post PCI to the left LAD treatment that wa s done on 04/21/2023, and he had a right coronary artery also stented. He has had aortoiliac stenosi s and is status post lithotripsy and bilateral arterial stents placed because of recent stroke and mu ltiple urinary tract infections. Imaging: X-ray of the pelvis on 10/24, shows minimally displaced intertrochanteric fracture of the r ight femur and x-ray of the right hip showed minimally displaced intertrochanteric fracture. CT scan of the brain shows no acute ischemic or hemorrhagic changes. Family History: Noncontributory. Social History: No alcohol, tobacco, or IV drug use. Allergies: FLAGYL AND AMANTADINE. Medications: Gabapentin 600 mg twice daily, tramadol 50 mg twice daily, Rockholds 5/325 every 4 hours as needed, Tecfidera 240 mg daily, Colace 100 mg twice daily and is also receiving oxybutynin, simvasta tin, sodium chloride tablets, Plavix, acyclovir, and albuterol nebulizer along with meclizine. Review of Systems: The patient is somewhat sleepy, did receive pain medications recently. Otherwise, no fevers, chills, nausea, vomiting. There are mild myalgias and arthralgias in the right hip. Has no rash. No psych iatric issues or other complaints. Current Level Of Functioning: He is independent for eating, supervision for grooming, dependent for bathing, moderate assistance for upper body dressing and maximal assistance for lower body dressing, dependent for toileting, for his transfers from wheelchair to bed and chair back and back to chair is at a moderate assistance level. Toilet transfer, moderate assistance. Gait is 3 feet with moderate assistance level. Wheelchair mobilization 2 feet at moderate assistance. Physical Examination: Vital Signs: Blood pressure 133/74, pulse 87, respiratory rate 18, temperature 97.8, oxygen saturati on 94%, weight 165 pounds, height 6 feet 7 inches, BMI 25.84. GENERAL: Mr. Baird is resting comfortably in bed. His is at the bedside, also daughter is at be dside as well. HEENT: He does appear normocephalic, atraumatic. Sclerae are anicteric. Oropharynx pink and moist. NECK: Supple. EXTREMITIES: Mild edema in the right lower extremity. There is good hemostasis of the right hip jaydon gical site and he has diffuse weakness of lower extremities. Increased reflexes and some right-sided weakness that is residual; however, at this point, the patient was somewhat sedated and could not co mplete a full examination due to his sleepiness. Rehab And Medical Assessment And Plan: Mr. Baird is a 73-year-old patient in the rehabilitation unit with impairment category 07, fracture of the lower extremity. Impairment group code is 08.11, unilat eral hip fracture. Etiologic Diagnosis: Mildly displaced intertrochanteric right femur fracture. His comorbid conditio ns include decreased mobility, decreased physical functioning, multiple sclerosis on Tecfidera, hyper tension, dyslipidemia, coronary artery disease, status post PCI, obstructive sleep apnea, neurogenic bladder, left trigeminal neuralgia, and seizure disorder. Rehab Specific Plan: He will have physical, occupational, and if need be speech therapy 3.5 hours, 5 of 7 days. His list of comorbid condition, which are mentioned will be addressed by continuing his current medications, DVT prophylaxis, Eliquis 2.5 mg twice daily, Tecfidera 240 mg twice daily for mu ltiple sclerosis. He has tramadol 50 mg scheduled in the morning and p.r.n. and has Rockholds 5/325, he has gabapentin 600 mg twice daily, oxybutynin for urinary retention, this will be on board and hypertension addressed as well. Comorbidities That Are Impacting Rehabilitation: Given that he has multiple sclerosis and prior stro ke, he is at high risk of additional falls and fall precautions to be adhered to at all times even th e patient is being mobilized, he will have a rolling walker at all times, seat belt on, and wheelchai r to follow and tow and the therapist working with him. Also, he has history of multiple urinary tra ct infections. We will have cranberry pills ongoing. We will also increase hydration. He is receiv ing the catheterizations per his 3 times weekly. A suprapubic catheter was discussed and she wi ll consider that after he is discharged. Mr. Baird will have physical, occupational, and speech therapy 3.5 hours, 5/7 days, work on improving his ability to transfer from a bed to a chair, to a wheelchair, to a walker, to go on and off toilet and shower, to mobilize at least 250 feet with a rolling walker and wheelchair and to go up and down 10 steps with bilateral handrails. Mr. Baird and his have good understanding of the process of admission to inpatient rehabilitation unit and how he will benefit from physical, occupational, and if need be speech therapy. He will maldonado ve 24 hours a day, 7 days a week skilled rehabilitation nursing, daily physician evaluation and manag ement, and social work case manager evaluation and management for discharge planning, home equipment, and phys ician followup. If need be, additional help will be sought from the hospitalist service. Barriers To Discharge: Given again is multiple sclerosis and prior stroke along with right hip fract ures. He may require extended time to be able to return home and function independently, which he wa s doing before with a rolling walker. If he is unable to do so within the time allotted by insurance , he may consider halfway to continue doing. His surgery was done last and he at th is point, will have tommie removed prior to his discharge around 12-14 days after the correct surger y. Length Of Stay: About 12-14 days. Disposition: Expected to be home, continue therapy via Home Health. Prognosis: Good. Code Status: Full code. Rehab Specific Goals: 1. Become independent with upper body dressing and donning and doffing footwear. 2. Independently ambulate 250 feet with a rolling walker and mobilized wheelchair 250 feet and go up and down 10 steps with bilateral handrails. 3. Independently perform all activities of daily living. 4. Independently perform cognitive functioning. The above goals were reviewed with the . By signing this document, I acknowledge I personally performed a full physical examination on Mr. Lincoln jimenez, no later than 24 hours after his admission to the inpatient rehabilitation unit and determined yudi t he is able to tolerate the above course of treatment at an intensive level for reasonable period of time. A detailed individualized plan of care for him will be completed by hospital day 4 based on t he preadmission screen, history and physical and therapy evaluations. TIRSO Voice ID: [id number]
--- NOTE | 2024-11-05 09:43 | PN ---
Date of Progress Note: 11/05/2024 Subjective: The patient was seen this morning for followup. No new complaints or problems reported by the patient. was with him at bedside. Usually, does straight catheterization of bladde r about 2 to 3 times a day, but she reported that as of last night, she started to have some concern about urinary tract infection. His urine looks cloudy and has some discomfort with urination and is concerned about urinary tract infection, which he gets it from time to time as has reported. No fever. No chills. No nausea, vomiting. Objective: Vital Signs: Reviewed. HEENT: Unremarkable. Lungs: Clear to auscultation. Heart: Sounds normal. Abdomen: Soft. Bowel sounds normal. No guarding, rigidity, tenderness, distention. Extremities: No leg edema. Impression: 1. Right hip fracture. 2. Rule out urinary tract infection. 3. Coronary artery disease. 4. Hypertension. 5. Hyperlipidemia. Plan: I have instructed nursing staff to collect and send urine specimen for urinalysis and culture. We will go ahead and continue current medications. Antibiotic will be started after looking at the urinalysis result if necessary, and otherwise continue other current medical management and I will s ee him tomorrow for followup. JESS/MODL Voice ID: [id number] Report ID: [id number]
--- NOTE | 2024-11-05 10:19 | HP ---
Date of Admission: 11/04/2024 Chief Complaint: Fall and hip fracture. History Of Present Illness: This is a 73-year-old male patient who fell down at home as he was trying to get out of his truck and when he fell down, he ended up having fracture of the right hip. The patient had surgery done for this at outside hospital and he was brought in to rehab floor yesterday for inpatient rehab therapy. When I saw him this morning, his was with him, no new complaints or problems reported by the patient or . He still has a lot of pain in his right hip, which we did talk about importance of on all the using pain medication, but as the time goes on, we believe that the pain will continue to get better. Allergies: ALLERGIC TO METRONIDAZOLE CAUSING HALLUCINATION AND AMANTADINE CAUSING SEIZURES. Medications: List reviewed. Review of Systems: Musculoskeletal: As mentioned above. All othersystems reviewed and negative. Past Medical History: Significant for seizure disorder, multiple sclerosis, trigeminal neuralgia, hypothyroidism, hypertension, hyperlipidemia, coronary artery disease, non-STEMI on June 30, 2022; benign prostatic hypertrophy, pancytopenia, and hyponatremia. Past Surgical History: Tonsillectomy; coronary artery stent placement in 2011, June 30, 2022, January 19, 2024, and January 31, 2024. The patient also had cholecystectomy and appendectomy in the past. Family History: Father , had colon cancer. Mother , had myocardial infarction, hypertension and kidney disorder. Brother with diabetes and hypertension. Social History: Prior history of smoking, not at present time. Use of alcohol rarely Physical Examination: Vital Signs: Height 5 feet 7 inches, weight 165 pounds. Temperature 97.7, pulse 85, respiratory rate 19, blood pressure 160/74, oxygen saturation 97%. General: Awake, alert, oriented, not in distress. HEENT: Head atraumatic, normocephalic. Conjunctivae nonerythematous. Sclerae white. Mouth, no thrush or edema noted. Ears/Nose, no mass, lesion, discharge noted. Neck: Supple. No JVD, lymph nodes, bruit, thyromegaly noted. Lungs: Bilateral good equal air entry. Clear to auscultation. No rhonchi. No rales. Heart: Normal heart sounds, no murmur or gallop. Abdomen: Soft, bowel sounds normal. No guarding, rigidity, tenderness, mass, hepatosplenomegaly, distention, or bruit noted. Extremities: No leg edema. No calf tenderness. Skin: No rash, ulcer, cellulitis. Lymphatics: No lymph node enlargement in neck, supraclavicular, infraclavicular region. Neuro: No focal neurological deficit. Chest: Unremarkable. External Genitalia: Deferred. Rectal: Deferred. Laboratory Data: WBC 4.7, hemoglobin 8, platelets 298. His lowest hemoglobin was around 7.4 as per my discussion with the patient's and he did not require any blood transfusion. For chemistry; sodium 137, potassium 4, chloride 104, bicarb 28, BUN 16, creatinine 0.38, glucose 98, albumin 3.2. Urinalysis; 1+ ketone, 2+ urobilinogen, otherwise negative. Impression: 1. Right hip fracture. 2. Acute blood loss anemia. 3. Coronary artery disease. 4. Hypertension. 5. Hyperlipidemia. 6. Hypothyroidism. 7. Seizure disorder. 8. Multiple sclerosis. 9. Benign prostatic hypertrophy. Plan: We will go ahead and admit the patient for therapy and the patient will be admitted to the hospital to inpatient rehab and we will consult Dr. Schuster for management of rehab therapy. Medically speaking, the patient is stable. We will continue his current medications for blood pressure per order, monitor blood pressure, if necessary adjust medication. For hyperlipidemia, continue his medication, no need for further intervention. Coronary artery disease problem is stable, will not require any further intervention. For his hip fracture, we will continue his current medications. Pain medications will be continued per order. Physical therapy will be provided under guidance of Dr. Schuster and I will see him tomorrow for followup. For seizure disorder, no need for further intervention, except continuation of the medication. Total time spent 55 minutes including review of last hospital admission record from 04/24/2024, review of last office visit record, review of outside hospital available records that were provided to us at the time of transfer and performing today's evaluation and management. JESS/MODL Voice ID: [id number] MURALI
[2024-11-05 11:36] LABS: Sqamous Epithelial <5 /HPF (None Seen); Urine Crystals Unidentified Few /HPF (None Seen); Urine Culture Reflex Order REFLEXED; Urine Microscopic Reflex YN ORDER UMIC; Urine WBC Clump Occasional /HPF (None Seen); Urine Yeast (Budding) Few /HPF (None Seen)
[2024-11-05] MEDS: ALBUTEROL 2.5 MG/3 ML NEB SOL NEB PRN (12:28)
[2024-11-05] MEDS: TRAMADOL HCL 50 MG TAB PO PRN (16:42)
[2024-11-05] MEDS: levoFLOXacin 500 MG TAB PO ONE (18:24)
[2024-11-05] MEDS: CRANBERRY FRUIT EXTRACT 425 MG CAPSULE PO SCH (20:52)
[2024-11-05] MEDS: TECFIDERA 240 MG PO SCH (20:53)
[2024-11-06] MEDS: levoFLOXacin 500 MG TAB PO SCH (08:06)
--- NOTE | 2024-11-07 00:55 | PN ---
Date of Progress Note: 11/06/2024 Time Of Service: 1:20. Subjective: Mr. Baird is resting in bed and family is at bedside, his and daughter. He is doing well in terms of his therapy. His pain is managed, although pain has been around 2 prior to therapy and then may be got to about 6 or 7 during therapy. The medications will be adjusted as scheduled t o help manage as he gets therapy. Review of Systems: No fevers, chills, nausea, vomiting. Mild myalgias, arthralgias, otherwise no findings. Physical Examination: Vital Signs: Blood pressure is 164/65, pulse 87, respiratory rate 18, temperature 97.7, oxygen satur ation 97%. Weight 165 pounds, height 5 feet 7 inches, BMI 25.8. General: Once again, he is resting in bed in between therapy sessions. HEENT: Appears normocephalic, atraumatic. Sclerae anicteric. Oropharynx is pink and moist. Skin: There is good hemostasis of the right hip intertrochanteric surgical site. Laboratory Studies: No new laboratory studies. X-ray/imaging: No new x-rays or imaging. Note, patient is followed by Dr. Parham who is managing his condition on the hospitalist service. Progress Made With Physical, Occupational, And Speech Therapy: With physical therapy today, supine-t o-sit transfers, moderate assistance required with verbal cues. For ves-dd-bbxxn transfers, maximum to moderate assistance required. Stand and pivot transfers, maximum assistance. He ambulated twice feet with moderate assistance. Emphasis placed on upright posture and weight shifting. Rc zaman is able to perform wheelchair mobilization 100 feet twice with standby assistance. With occupation al therapy, minimum assistance for assistance for edge of bed to wheelchair transfer, maxi mal assistance with don and doff footwear due to pain. Main barrier is noted has been some pain and did have apraxia with transfers and gait, standing balance. Assessment And Plan: Mr. Baird is a 73-year-old patient in the rehabilitation unit with displaced rig ht intertrochanteric hip fracture. He has decreased mobility, decreased physical functioning, signif icant pain, dyslipidemia, risk of stroke. He has neuropathic pain and low B12. He has ferrous sulfa te for iron deficiency, Proscar for prostate hypertrophy and urinary retention, Synthroid for hypothy roidism, Levaquin continued for antibiotic treatment, Prinivil for hypertensive management, magnesium oxide for muscle spasms, Toprol for heart rate control, and Hemocyte Plus for iron deficiency. Tram adol scheduled in the morning 100 mg instead of 50 around 8:00 prior to his therapy and 50 mg every 6 hours as needed. In terms of the plan, we will continue again physical and occupation therapy 3 jaron rs a days [address] Parham is managing his comorbid condition medications and pain medications have been adjusted as noted and has multimodality approach. The patient otherwise overall is making some slow, but steady progress in terms of his recovery to coming back to his baseline independent le rina of functioning. JYOTHI/CHIRAG Voice ID: [id number] Report ID: [id number]
--- NOTE | 2024-11-07 06:24 | PN ---
Date of Progress Note: 11/06/2024 Subjective: The patient was seen this morning for followup. He was lying in bed, not in distress. His was with him at bedside. No new complaints or problems reported overnight. Since we starte d him on antibiotic, levofloxacin, yesterday, his urinary flow has improved as reported by the patien t's . He remains afebrile. Objective: Last Vital Signs: Temperature 97.9, pulse 67, respiratory rate 18, blood pressure 146/65 . Impression: 1. Urinary tract infection. 2. Hip fracture. 3. Hypertension. 4. Coronary artery disease. Plan: Continue current medication. Continue current anti-platelet therapy, antihypertensive medicat ion. Continue current antibiotic and follow up on urine culture, which is pending. JESS/MODL Voice ID: [id number] Report ID: [id number]
[2024-11-07] MEDS: TRAMADOL HCL 50 MG TAB PO SCH (08:04)
--- NOTE | 2024-11-07 20:35 | PN ---
Date of Progress Note: 11/07/2024 Subjective: The patient was seen this morning for followup. No new complaints or problems reported by the patient. He was lying in bed, not in any distress. was with him. Objective: Vital Signs: Reviewed. The patient remains afebrile. HEENT: Unremarkable. Lungs: Clear to auscultation. Heart: Sounds normal. Abdomen: Soft. Bowel sounds normal. No guarding, rigidity, tenderness, or distention. Extremities: No leg edema. Impression: 1. Right hip fracture. 2. Hypertension. 3. Hyperlipidemia. 4. Coronary artery disease. 5. Urinary tract infection. Plan: Continue current antibiotic. Urine culture result is still pending. We will continue current antihypertensive medication and continue physical therapy under guidance of Dr. Schuster. I will se e him tomorrow for followup. JESS/MODL Voice ID: [id number] Report ID: [id number]
[2024-11-07] MEDS: BISACODYL 10 MG RECTAL SUPP PR PRN (21:26)
--- NOTE | 2024-11-08 00:09 | RAD REPORT ---
EXAMINATION: ONE VIEW CHEST XR CLINICAL INDICATION: Male, 73 years old.,r/o any lung infection TECHNIQUE: Frontal chest projection is submitted. Examination is limited by patient positioning and t echnique. COMPARISON: 05/23/2024 FINDINGS: The lungs are well inflated and clear. No pneumothorax or sizable effusion. Stable mild cardiomegaly . Mediastinal contours are unremarkable. IMPRESSION: No acute intrathoracic abnormalities.
--- NOTE | 2024-11-08 02:14 | PN ---
Date of Progress Note: 11/07/2024 Time: 1:30 p.m. Subjective: Mr. Baird is resting comfortably and has family there to help. He is making great progre ss overall. There are no new complaints. Objective: No fevers, chills. The hip surgical site has good hemostasis and the patient is followed by Dr. Parham, his primary care physician. Physical Examination: Vital Signs: Blood pressure is 172/72, pulse up to 106, respiratory rate 16 to 20, temperature 100.2 . He does have Tylenol on board. Extremities: In terms of examination, again the patient has good hemostasis at the surgical site in his hip. Laboratory Studies: No new laboratory studies. X-ray/imaging: No new x-rays or imaging. Progress Made With Physical, Occupational, And Speech Therapy: With physical therapy today, he mobil ized a wheelchair 50 feet twice with minimum assistance and required increased time. He was only abl e to go up and down 1 step with maximum assistance and bilateral handrails. Lxhlel-bt-iby transfers required moderate assistance. Multiple kpe-ux-mmvdu transfers also required moderate assistance. [facility] occupational therapy, supervision for showering. He did reach to wash his buttocks without standi ng. He is independent for upper body dressing, maximum assistance for lower body dressing, minimum a ssistance for donning and doffing socks with assistive device. He was independent for grooming. Wit h speech, long-term goals were set to improve his SLUMS score to 20+. He does have again significant cognitive impairment and the goal is to go from a moderate to mild level of cognitive impairment. Assessment And Plan: Mr. Baird is a 73-year-old patient in the rehabilitation unit with displaced rig ht intertrochanteric hip fracture. He is making fair, but slow progress overall. Still has decrease d mobility, decreased physical functioning, dyslipidemia, neuropathic pain, iron deficiency, prostate hypertrophy, hypothyroidism, hypertension. In terms of the plan, we will continue with his physical , occupational, and speech therapy 3.5 hours, 5 of 7 days. His comorbidities are managed by Dr. Parham , his primary care physician. LB/MODL Voice ID: [id number] Report ID: [id number]
[2024-11-08 06:09] LABS: Absolute Lymphocytes (CBC) 0.4 K/uL (0.7-4.9); Hematocrit 25.1 % (39.6-49.0); Hemoglobin 8.9 g/dL (13.6-17.9); MCH 34.2 pg (27.0-35.0); MCHC 35.5 g/dL (32.0-36.0); MCV 96.3 fL (80-100); MPV 7.8 fL (7.6-11.3); Nucleated RBC Absolute Count 0.0 (0-0); Nucleated Red Blood Cells % 0.0 % (0-0); RBC Red Blood Cell Count 2.60 M/uL (4.33-5.43); White Blood Count 4.60 thou/uL (4.3-10.9)
[2024-11-08 06:33] LABS: Albumin 3.3 g/dL (3.4-5.0); Anion Gap 10.0 mEq/L (5.0-15.0); BUN Blood Urea Nitrogen 17.0 mg/dL (7-18); Glucose Level 97.0 mg/dL (74-106); Magnesium 1.9 mg/dL (1.6-2.4); Potassium 4.0 mEq/L (3.5-5.1); Prealbumin 18.6 mg/dL (20-40)
--- NOTE | 2024-11-08 10:31 | RAD REPORT ---
EXAMINATION: US BILATERAL LOWER EXTREMITY VENOUS DOPPLER CLINICAL INDICATION: rule out DVT TECHNIQUE: Complete bilateral duplex sonography of the BILATERAL lower extremity veins was performed. The examination included compression for vein patency, color Doppler imaging and flow augmentation in response to distal compression of the distal external iliac, common femoral, femoral, popliteal, t ibial, and great and small saphenous veins. COMPARISON: No prior exam. FINDINGS: Duplex sonography testing of the veins of the BILATERAL lower extremity was performed. Color flow tita ging shows all veins to be compressible with [id number] color filling. Pulsatile and phasic flow is present within all lower extremity deep and superficial veins examined. IMPRESSION: There is no deep vein or superficial vein thrombosis.
[2024-11-08] MEDS: TRAMADOL HCL 50 MG TAB PO SCH (14:21)
[2024-11-08] MEDS: SODIUM CHLORIDE 1 GM TAB PO SCH (17:15)
--- NOTE | 2024-11-08 19:05 | PN ---
Date of Progress Note: 11/08/2024 Subjective: The patient was seen this morning for followup. His was with him at bedside. Repo rted that he did not have a good night because of temperature spike last night. I have reviewed his vital signs. His maximum temperature in last 24 hours was 100.2 degrees Fahrenheit. The patient has remained afebrile after that overnight. Denies any cough, congestion, abdominal pain, nausea, vomit ing. Physical Examination: Vital Signs: Reviewed. This morning, temperature 97.7, pulse 67, respiratory rate 18, blood pressur e 168/56, and oxygen saturation 98%. HEENT: Unremarkable. Lungs: Clear to auscultation. Heart: Sounds normal. Abdomen: Soft. Bowel sounds normal. No guarding, rigidity, tenderness, distention. Extremities: No leg edema. Right lateral hip area has surgical scar, normal-looking scar. No evide nce of any redness, warmness, or any unusual swelling. Laboratory Data: WBC 4.6, hemoglobin 8.9, platelets 263. Procalcitonin less than 0.05. Sodium 131, potassium 4, chloride 97, bicarb 28, BUN 17, creatinine 0.47, glucose 109. Chest x-ray done yesterd aaliyah was negative for any acute changes. Venous Doppler of both lower extremity done today was negativ e for DVT. Impression: 1. Urinary tract infection. 2. Hypertension. 3. Hyperlipidemia. 4. Right hip fracture. 5. Coronary artery disease. Plan: The patient's urine culture result was pending, which we followed up with microbiology lab ray fischer during the course of day and it was reported as no growth. We will continue current empiric antib iotic that he is currently on, which is Levaquin. If he has another temperature spike, we will need to consider to change antibiotic. Physical therapy to be continued under guidance of Dr. Schuster. Continue current antihypertensive medication. Monitor blood pressure. If necessary, adjust medicati on. Continue current statin therapy. JESS/MODL Voice ID: [id number] Report ID: [id number]
[2024-11-08] MEDS: HYDROCODONE/APAP 7.5/325 MG TAB PO PRN (19:09)
--- NOTE | 2024-11-08 23:00 | PN ---
Date of Progress Note: 11/08/2024 Time: 1:30 p.m. Subjective: Mr. Baird is resting comfortably between therapy sessions, is at bedside. He is fee ling pretty good about his therapy. Says that pain at best is around 1 and maybe most around 3-4, bu t it is managed with pain medications, although he said, he potentially would like even better contro l. Review of Systems: No fevers, chills, nausea, vomiting. He has good hemostasis of his hip surgical site. Physical Examination: Vital Signs: Blood pressure 132/62, pulse 89, respiratory rate 18, temperature 98.1, oxygen saturati on 97%. Pain noted by the therapist, max of 7 with therapy, 0 at times . He has no new fi ndings on exam. Laboratory Studies: White blood cell count 4.6, hemoglobin 8.9, platelets 263. His sodium did go do wn to 131 and chloride down to 97. He has sodium chloride tablets on board. Potassium 4.0, BUN 17, creatinine 0.47. Lactic acid less than 0.8. Procalcitonin less than 0.05. Prealbumin 18.6, albumin 3.3. Magnesium 1.9. Calcium 8.9. He did have urine culture, showing no growth. X-ray/imaging: A Doppler study was done ordered by Dr. Parham on both lower extremities and there is n o deep vein thrombosis identified. Medications: Medications have been reviewed. He is now on [place] 7.5/325 instead of 5/325 due to the pain. He will have tramadol as scheduled. Tramadol intrusion analyst around 8 and [place] 2 hours later and then tramadol. Progress Made With Physical, Occupational, And Speech Therapy: With physical therapy, he did multipl e pybqot-pw-yhm transfers with contact guard assistance with verbal cues. He ambulated 12 feet twice and 6 feet once with moderate assistance. Mobilized wheelchair 100 feet twice and is doing independ ently. With occupational therapy, minimum assistance for lpl-kv-zgwrv transfers and verbal cues requ ired. Maximum assistance for donning and doffing shoes with assistive devices. With speech, moderat e cues required for temporal orientation skills with 75% accuracy. He recalled 3 of 3 unrelated pict ures after 1 minute and 2 of 3 after 3 minutes. He maintained sustained attention in the task for 1 minute and then he . Assessment And Plan: Mr. Eleuterio Baird is a 73-year-old patient admitted to a rehabilitation unit with displaced right intertrochanteric fracture, status post repair. He is making fairly slow progress ov era. Still has moderate decreased mobility, decreased physical functioning, dyslipidemia, neuropat hic pain, iron deficiency, prostate hypertrophy, hypothyroidism, hypertension, and again pain, he req uires adjustment of medications. For his plan, he will continue with physical, occupational, and spe ech therapy 3.5 hours. His medications are managed by Dr. Parham, his primary care physician. However , we will adjust medications as well including his pain medication, which adjustments were made today . JYOTHI/CHIRAG Voice ID: [id number] Report ID: [id number]
[2024-11-09] MEDS ORDERED: HYDROCODONE/APAP 7.5/325 MG TAB PO PRN ×2 (10:00→10:50)
--- NOTE | 2024-11-09 12:56 | P.RH.PN ---
Estimated Length of Stay: 16 Expected Discharge Date: 11/15/24 Discharge Disposition Plan: Home Family Support: Yes Fdc Goal: Mobility, Transfers, Self Care Vital Signs: Last Vital Signs Temp 97.8 F 11/09/24 07:04 Pulse 61 11/09/24 08:19 Resp 16 11/09/24 12:23 BP 137/66 11/09/24 08:19 Pulse Ox 98 11/09/24 12:23 Laboratory: Laboratory Last Values WBC 4.60 thou/uL (4.3-10.9) 11/08/24 05:46 RBC 2.60 M/uL (4.33-5.43) L 11/08/24 05:46 Hgb 8.9 g/dL (13.6-17.9) L 11/08/24 05:46 Hct 25.1 % (39.6-49.0) L 11/08/24 05:46 MCV 96.3 fL (80-100) 11/08/24 05:46 MCH 34.2 pg (27.0-35.0) 11/08/24 05:46 MCHC 35.5 g/dL (32.0-36.0) 11/08/24 05:46 RDW 16.0 % (12.1-15.2) H 11/08/24 05:46 Plt Count 263 thou/uL (152-406) 11/08/24 05:46 MPV 7.8 fL (7.6-11.3) 11/08/24 05:46 Neutrophils % 80.2 % (41.7-73.7) H 11/08/24 05:46 Lymphocytes % 8.3 % (15.3-44.8) L 11/08/24 05:46 Monocytes % 10.0 % (3.3-12.3) 11/08/24 05:46 Eosinophils % 0.7 % (0-4.4) 11/08/24 05:46 Basophils % 0.8 % (0-1.3) 11/08/24 05:46 Absolute Neutrophils 3.7 K/uL (1.8-8.0) 11/08/24 05:46 Segmented Neutrophils 83 % (40-80) H 11/04/24 04:33 Absolute Lymphocytes 0.4 K/uL (0.7-4.9) L 11/08/24 05:46 Lymphocytes 12 % (15-42) L 11/04/24 04:33 Monocytes 5 % (0-10) 11/04/24 04:33 Absolute Monocytes 0.5 K/uL (0.1-1.3) 11/08/24 05:46 Absolute Eosinophils 0.0 K/uL (0-0.5) 11/08/24 05:46 Absolute Basophils 0.0 K/uL (0-0.5) 11/08/24 05:46 Platelet Estimate Adeq 11/04/24 04:33 Morphology Comment Not seen (NOT SEEN) 11/04/24 04:33 Sodium 131 mEq/L (136-145) L 11/08/24 05:46 Potassium 4.0 mEq/L (3.5-5.1) 11/08/24 05:46 Chloride 97 mEq/L (98-107) L 11/08/24 05:46 Carbon Dioxide 28 mEq/L (21-32) 11/08/24 05:46 Anion Gap 10.0 mEq/L (5.0-15.0) 11/08/24 05:46 BUN 17 mg/dL (7-18) 11/08/24 05:46 Creatinine 0.47 mg/dL (0.70-1.30) L 11/08/24 05:46 Est GFR (CKD-EPI) 109 ml/min (=/>90) 11/08/24 05:46 Glucose 97 mg/dL (74-106) 11/08/24 05:46 Lactic Acid < 0.8 mmol/L (0.4-2.0) 11/08/24 05:46 Calcium 8.8 mg/dL (8.5-10.1) 11/08/24 05:46 Magnesium 1.9 mg/dL (1.6-2.4) 11/08/24 05:46 Albumin 3.3 g/dL (3.4-5.0) L 11/08/24 05:46 Prealbumin 18.6 mg/dL (20-40) L 11/08/24 05:46 Procalcitonin < 0.05 ng/mL (<0.50) 11/08/24 05:46 Urine Color Light-yellow (Yellow) 11/05/24 11:15 Urine Clarity Extremely turbid (Clear) H 11/05/24 11:15 Urine pH 6.5 (5.0-7.0) 11/05/24 11:15 Ur Specific [place] 1.012 (1.005-1.030) 11/05/24 11:15 Glucose (UA)(Auto) Negative (Negative) 11/05/24 11:15 Urine Ketones Negative (Negative) 11/05/24 11:15 Urine Blood Negative (Negative) 11/05/24 11:15 Urine Nitrite Negative (Negative) 11/05/24 11:15 Urine Bilirubin Negative (Negative) 11/05/24 11:15 Urine Urobilinogen 1+ (Normal) H 11/05/24 11:15 Ur Leukocyte Esterase 500 Robb/uL (Negative) H 11/05/24 11:15 Urine RBC None seen /HPF (None Seen) 11/05/24 11:15 Urine WBC 20-50 /HPF (<5) H 11/05/24 11:15 Urine WBC Clumps Occasional /HPF (None Seen) H 11/05/24 11:15 Ur Squamous Epith Cells <5 /HPF (None Seen) 11/05/24 11:15 U Non-Squamous Epi Cells <5 /HPF (None Seen) 11/05/24 11:15 Unidentified Crystals Few /HPF (None Seen) 11/05/24 11:15 Urine Bacteria <20 /HPF (<20) 11/05/24 11:15 Urine Mucus Slight /HPF (None Seen) 11/05/24 11:15 Urine Yeast (Budding) Few /HPF (None Seen) H 11/05/24 11:15 Urine Culture Reflexed Reflexed 11/05/24 11:15 Urine Total Protein Negative (Negative) 11/05/24 11:15 Weight: 165 lb Wound Present: No Closed Surgical Incision Present: Yes Negative Pressure Wound Therapy Present: No Physician Update: Labs reviewed. Na down to 131. On NaCl 2 grams twice daily. The patient and his want to go to [facility]. Poor cognition, SLUMS 17, poor attention. Poor short term memory. Met 2/6 STG, moderate pain on the left leg. Not retaing instruction of how to use devices. Bed mobility CGA, STS mod assist. RW 12' x 2 with mod assist. WC 100' x 2 independently. Summary: Patient's care plan and termite inspector goals have been reviewed and revised as necessary. Please see the Rehabilitation Signature page for all necessary signatures.
[2024-11-09] MEDS: HYDROCODONE/APAP 7.5/325 MG TAB PO PRN (14:33)
[2024-11-09 14:40] LABS: Anion Gap 9.3 mEq/L (5.0-15.0); BUN Blood Urea Nitrogen 17.0 mg/dL (7-18); Glucose Level 99.0 mg/dL (74-106); Potassium 4.3 mEq/L (3.5-5.1)
--- NOTE | 2024-11-09 18:09 | RAD REPORT ---
EXAMINATION: XR RIGHT HIP CLINICAL INDICATION: . increase pain RIGHT TECHNIQUE: Multiple views of the right hip were obtained. COMPARISON: No prior exam. FINDINGS: Proximal right femur hardware is in place. Lucency is seen in the intertrochanteric region. Mild vascular atherosclerosis.
--- NOTE | 2024-11-09 23:26 | PN ---
Date of Progress Note: 11/09/2024 Subjective: The patient was seen this morning for followup. No new complaints or problems reported by the patient, lying in bed, not in distress. was present with him at bedside. The patient maldonado s remained afebrile in last 24 hours. Objective: Vital Signs: Reviewed. HEENT: Unremarkable. Lungs: Clear to auscultation. Heart: Sounds normal. Abdomen: Soft. Bowel sounds normal. No guarding, rigidity, tenderness, distention. Extremities: No leg edema. Impression: 1. Urinary tract infection. 2. Hypertension. 3. Hyperlipidemia. 4. Right hip fracture. Plan: Continue current medication. Continue physical therapy under guidance of Dr. Schuster. Gabriele gaby current antibiotics. JESS/MODL Voice ID: [id number] Report ID: [id number]
[2024-11-13 07:11] LABS: Absolute Lymphocytes (CBC) 0.7 K/uL (0.7-4.9); Hematocrit 28.2 % (39.6-49.0); Hemoglobin 9.6 g/dL (13.6-17.9); MCH 33.0 pg (27.0-35.0); MCHC 34.0 g/dL (32.0-36.0); MCV 97.2 fL (80-100); MPV 7.9 fL (7.6-11.3); Nucleated RBC Absolute Count 0.0 (0-0); Nucleated Red Blood Cells % 0.2 % (0-0); RBC Red Blood Cell Count 2.90 M/uL (4.33-5.43); White Blood Count 3.90 thou/uL (4.3-10.9)
[2024-11-13 07:26] LABS: Anion Gap 12.6 mEq/L (5.0-15.0); BUN Blood Urea Nitrogen 16.0 mg/dL (7-18); Glucose Level 86.0 mg/dL (74-106); Potassium 3.6 mEq/L (3.5-5.1)
--- NOTE | 2024-11-13 20:59 | PN ---
Date of Progress Note: 11/13/2024 Subjective: The patient was seen this morning for followup. He was lying in bed, not in distress. No new complaints or problems reported by him. His was with him at bedside. Denies any hematur ia or dysuria. does the bladder catheterization for him regularly and since he has been on Leva benedicto, no complaints reported. Objective: Vital Signs: Reviewed. HEENT: Unremarkable. Lungs: Clear to auscultation. Heart: Sounds normal. Abdomen: Soft. Bowel sounds normal. No guarding, rigidity, tenderness, distention. Extremities: No leg edema. Impression: 1. Urinary tract infection. 2. Hypertension. 3. Hyperlipidemia. 4. Coronary artery disease. 5. Right hip fracture. Plan: We will continue current medication. Continue current antihypertensive medication and statin therapy. Continue current antibiotic and we will be able to stop his antibiotic in next day or 2 day s. Continue physical therapy under guidance of Dr. Schuster. JESS/KATTL Voice ID: [id number] Report ID: [id number]
--- NOTE | 2024-11-14 10:54 | PN ---
Date of Progress Note: 11/13/2024 Time: 1:25 p.m. Subjective: Mr. Baird is resting comfortably in between therapy sessions. He has no new complaints. Pain is managed in his hip fracture site, which has good hemostasis. Review of Systems: No fevers, chills, nausea, vomiting. No myalgias, arthralgias, or rash or psychiatric issues or comp laints. Physical Examination: Vital Signs: Blood pressure 130/60, pulse 66, respiratory rate 18, temperature 97.9, oxygen saturati on 96%. General: Mr. Baird is resting comfortably. No significant distress. HEENT: Normocephalic, atraumatic. Sclerae anicteric. Oropharynx moist. Neck: Supple. Chest: Clear. Laboratory Studies: White blood cell count is 3.9, hemoglobin 9.6, platelets 308. Sodium 137, potas sium 3.6, chloride 102, carbon dioxide 26, BUN 16, creatinine 0.49, glucose 86, calcium 9.3. X-ray/imaging: No new x-rays or imaging. Progress Made With Physical, Occupational, And Speech Therapy: With physical therapy, he did perform multiple riw-hg-ypeli transfers with minimum assistance, ckrkt-sb-lpayg transfers with moderate assi stance, ambulated 15 feet with a rolling walker and 5 feet twice with minimum assistance. Emphasis p laced on staying centered within the rolling walker. He mobilized wheelchair 100 feet twice independ ently. With occupational therapy, his did work with him with his activities of daily living and required partial assistance for bathing, drying feet and buttocks. He is independent for upper body dressing and did transfers with standby assistance using grab bars in the shower. With speech thera py today, he was able to maintain attention for 5 minutes with 80% accuracy and recalled 3 of 3 unrel ated items after 2 minutes and did so independently. Temporal orientation skills used at a 90% accur acy level with minimal assistance. Assessment And Plan: Mr. Baird is a 73-year-old patient in rehabilitation with displaced right intert rochanteric fracture, status post surgical repair. He still has decreased mobility, decreased physic al functioning, multiple sclerosis, hypothyroidism, hypertension, prostate hypertrophy, iron deficien cy anemia. He is followed for his comorbid conditions by Dr. Parham. In terms of his progress, he is making fair progress overall with still slow in terms of his ability to ambulate and he has a lot of help from his who is planning on being with him as much as possible in terms of going home as a 24-hour basis and caregivers to help supplement when she is unable to be there. Apparently, he will continue with his physical, occupational, and speech therapy. JYOTHI/CHIRAG Voice ID: [id number] Report ID: [id number]
--- NOTE | 2024-11-15 00:35 | PN ---
Subjective: The patient was seen this morning for followup. He was sleeping, not in distress. was with him, also was sleeping this morning, and she did not wake up when I was visiting the patien t. No new complaints or problems reported by nursing staff this morning when I saw him. Objective: Vital Signs: Reviewed. HEENT: Unremarkable. Lungs: Clear to auscultation. Heart: Sounds normal. Abdomen: Soft. Bowel sounds normal. No guarding, rigidity, tenderness, distention. Extremities: No leg edema. Impression: 1. Urinary tract infection. 2. Hypertension. 3. Hyperlipidemia. 4. Coronary artery disease. 5. Right hip fracture. Plan: We will discontinue Levaquin today. The patient has received adequate number of days of antib iotic therapy. Continue current antihypertensive medication and statin therapy. Continue physical t herapy under guidance of Dr. Schuster. JESS/MODL Voice ID: [id number] Report ID: [id number]
--- NOTE | 2024-11-15 01:55 | PN ---
Date of Progress Note: 11/14/2024 Time Of Service: 1:45 p.m. Subjective: Mr. Baird is mobilizing down the hallway. His is behind and has a gait belt, holdin g on to that. Therapist also is behind with a wheelchair following. Mr. Baird is able to stop, exten d his hand and shakes hand, and he is very happy so far with therapy although his progress is slow to steady. He does have the hip fracture and his pain is better controlled. The therapist noted he wo uld favor the right leg, but still be able to bear the partial weight and then moving the left leg al lauri while holding the rolling walker with both hands. Objective: Some myalgias and arthralgias in the right proximal and distal lower extremities. Otherw ise, no new complaints in terms of objective. Physical Examination: Vital Signs: Blood pressure up to 184/75, pulse 60, respiratory rate 16, temperature is 97.5, oxygen saturation 96%. General: Mr. Baird is moving along the hallway. He does have good hemostasis at the surgical site. Neuromuscular: He has no focal deficits, just pain in the right lower extremity where there is posto perative expected pain. Laboratory Studies: White blood cell count 3.9, hemoglobin 9.6, platelets 398. Sodium 137, potassiu m 3.6, chloride 102, carbon dioxide 26, BUN 16, creatinine 0.49, glucose 86. Calcium 9.3. X-ray/imaging: No new x-rays or imaging. Medications: Have been reviewed and managed by Dr. Parham, his primary care physician, and those medic ations remained unchanged compared to the medications on yesterday and previously. Progress Made With Physical, Occupational, And Speech Therapy: With physical therapy today, performe d multiple lqx-yq-aisqw transfers and xuncr-oe-uayej transfers with contact guard assistance with jonathan bal cues required. Ambulated 40 feet, 30 feet, 45 feet, and 50 feet with minimal assistance __ heel strike and wheelchair mobility was 100 feet twice with independence. With his occupational t herapy, did work on him with wheelchair to toilet transfers and wheelchair to edge of bed transfers, did assist with transferring. For family education, did show some improved safety awarene ss and his did verbalize understanding. With speech, able to do temporal orientation tasks with 90% accuracy and minimum assistance. Maintain sustained attention for 4 minutes requiring moderate assistance to do the task with 80% accuracy. Recalled 3 of 3 unrelated items after 3 minutes delay a nd minimum assistance. Also did convergent and divergent naming activities with 80% accuracy and mod erate assistance required. Assessment And Plan: Mr. Baird is a 73-year-old patient in the rehabilitation unit with a displaced r ight intertrochanteric fracture on the right side. He is status post surgical repair. He still has decreased mobility, decreased physical functioning, multiple sclerosis, hypothyroidism, hyp ertension, prostate hypertrophy, iron deficiency. He is making again fair overall progress. He is f ollowed by Dr. Parham, his primary care physician. In terms of his plan, he will continue with physical, occupational, and speech therapy 3-1/2 hours, 5 of 7 days. His list of comorbid conditions and medications have been noted above. They will contin ue. We will have DVT prophylaxis continued. Fall risk will be strictly adhered to as he is a high r isk of falling and additional injury. Does have some question of coordination with gait more unstabl e and high risk of falling. LB/MODL Voice ID: [id number] Report ID: [id number]
--- NOTE | 2024-11-15 19:51 | PN ---
Date of Progress Note: 11/15/2024 Subjective: The patient was seen this morning for followup. He was lying in bed, not in distress. No new complaints or problems reported by him. His was with him at bedside who also did not rep ort any new complaints. The patient's hip pain is well controlled with current pain medication. Objective: Vital Signs: Reviewed. HEENT: Unremarkable. Lungs: Clear to auscultation. Heart: Sounds normal. Abdomen: Soft. Bowel sounds normal. No guarding, rigidity, tenderness, distention. Extremities: No leg edema. Impression: 1. Hypertension. 2. Hyperlipidemia. 3. Coronary artery disease. 4. Right hip fracture. Plan: Continue current medications. Continue physical therapy under guidance of Dr. Schuster and co ntinue current antihypertensive medication and anti-platelet therapy. I will see him tomorrow for kayla antoine. JESS/MODL Voice ID: [id number] Report ID: [id number]
--- NOTE | 2024-11-16 03:01 | PN ---
Date of Progress Note: 11/15/2024 Time: 1:20 p.m. Subjective: Mr. Baird is feeling better today. His is encouraging him. Saying he is walking better, but still requires significant help in the right lower extremity weakness. Otherwis e, no new complaints. Review of Systems: Some mild pain in the right knee and right lower extremity and otherwise he has no other complaints. Physical Examination: Vital Signs: Blood pressure 145/65, pulse 61, respiratory rate 20, temperature 97.9, oxygen saturati on 100%. General: Mr. Baird is sitting in a chair beside the bed. is at bedside. He is feeling better a bout his therapy. also is happy so far with his progress. Extremities: Does have of course displaced intertrochanteric fracture, surgical repair on the right with weightbearing as tolerated status and there is still a moderate amount of pain, although that pa in is improving, now to a 2, down to 0 at times. Laboratory Studies: No new laboratory studies. X-ray/imaging: No new x-rays or imaging. Medications: Have been reviewed and managed by Dr. Parham, his primary care physician, and remain unch anged. Progress Made With Physical, Occupational, And Speech Therapy: With physical therapy today, ambulate d 40 feet, 25 feet, and 10 feet with minimum assistance. Did need assistance with a rolling walker f or proper placement and distance. Supine to sit transfers done independently, multiple hawpm-lg-nrlu t transfers with standby assistance. With occupational therapy, completed 3 x 3 sug-pd-pglsg transfe rs using grab bars with contact guard assistance. Minimal verbal cues. Did lower body dressing ____ bilateral lower extremity with the use of assistive device. Education given on safety awarene ss. Also, worked with Speech Pathology and was able to sustained attention tasks for 5 minutes with 90% accuracy and minimum assistance. Needed moderate assistance for divergent and convergent naming tasks and 80% accuracy. Temporal orientation skills done with 100% accuracy with minimum assistance. Able to recall 3 of 3 unrelated items after 3-minute delay and 2 of 3 after another 5 minutes delay . Assessment And Plan: Mr. Baird is a 73-year-old patient in rehabilitation unit with displaced intertr ochanteric fracture on the right. He is doing very well after surgical repair. Improving pain cont rol, mobilizing better. Still has comorbidities, decreased mobility, decreased physical functioning, of course pain. He has episodes of low blood pressure, hyponatremia and that is addressed. Itzi pation has been addressed. He has Hemocyte Plus, normal iron levels, Toprol for heart rate and blood pressure control along with Prinivil. He has hypothyroidism addressed with Synthroid and Colace for constipation, Flexeril for muscle spasms, Plavix for stroke risk reduction. Has carbamazepine for n europathic pain to reduce risk of seizures. His nebulizer treatment is on board. Plan is to continu e with physical, occupational, and speech therapy 3.5 hours, 5 of 7 days along with his comorbid cond ition medications. Dr. Parham is managing his comorbid conditions. JYOTHI/KATTL Voice ID: [id number] Report ID: [id number]
[2024-11-16 06:00] LABS: Absolute Lymphocytes (CBC) 0.6 K/uL (0.7-4.9); Hematocrit 28.7 % (39.6-49.0); Hemoglobin 9.8 g/dL (13.6-17.9); MCH 33.2 pg (27.0-35.0); MCHC 34.2 g/dL (32.0-36.0); MCV 97.1 fL (80-100); MPV 8.2 fL (7.6-11.3); Nucleated RBC Absolute Count 0.0 (0-0); Nucleated Red Blood Cells % 0.1 % (0-0); RBC Red Blood Cell Count 2.96 M/uL (4.33-5.43); White Blood Count 3.80 thou/uL (4.3-10.9)
[2024-11-16 06:53] LABS: Albumin 3.4 g/dL (3.4-5.0); Anion Gap 8.1 mEq/L (5.0-15.0); BUN Blood Urea Nitrogen 15.0 mg/dL (7-18); Glucose Level 95.0 mg/dL (74-106); Potassium 4.1 mEq/L (3.5-5.1); Prealbumin 25.4 mg/dL (20-40)
[2024-11-16 06:58] LABS: Magnesium 0.7 mg/dL (1.6-2.4)
[2024-11-16 08:06] LABS: Absolute Lymphocytes (CBC) 0.7 K/uL (0.7-4.9); Hematocrit 31.3 % (39.6-49.0); Hemoglobin 10.8 g/dL (13.6-17.9); MCH 33.5 pg (27.0-35.0); MCHC 34.4 g/dL (32.0-36.0); MCV 97.3 fL (80-100); MPV 8.2 fL (7.6-11.3); Nucleated RBC Absolute Count 0.0 (0-0); Nucleated Red Blood Cells % 0.1 % (0-0); RBC Red Blood Cell Count 3.22 M/uL (4.33-5.43); White Blood Count 3.50 thou/uL (4.3-10.9)
[2024-11-16 08:17] LABS: ALT/SGPT 24.0 U/L (16-61); AST/SGOT 17.0 U/L (15-37); Albumin 3.9 g/dL (3.4-5.0); Albumin/Globulin Ratio 1.3 (1.1-1.8); Alkaline Phosphatase 185.0 U/L (45-117); Anion Gap 8.2 mEq/L (5.0-15.0); BUN Blood Urea Nitrogen 13.0 mg/dL (7-18); Globulin 2.9 g/dL (2.3-3.5); Glucose Level 96.0 mg/dL (74-106); Magnesium 1.9 mg/dL (1.6-2.4); Potassium 4.2 mEq/L (3.5-5.1); Prealbumin 27.1 mg/dL (20-40)
--- NOTE | 2024-11-16 12:58 | P.RH.PN ---
Estimated Length of Stay: 16 Expected Discharge Date: 11/17/24 Discharge Disposition Plan: Home Family Support: Yes Vital Signs: Last Vital Signs Temp 98.2 F 11/16/24 06:50 Pulse 64 11/16/24 06:50 Resp 18 11/16/24 06:50 BP 166/74 H 11/16/24 06:50 Pulse Ox 98 11/16/24 06:50 Laboratory: Laboratory Last Values WBC 3.50 thou/uL (4.3-10.9) L 11/16/24 07:49 RBC 3.22 M/uL (4.33-5.43) L 11/16/24 07:49 Hgb 10.8 g/dL (13.6-17.9) L D 11/16/24 07:49 Hct 31.3 % (39.6-49.0) L 11/16/24 07:49 MCV 97.3 fL (80-100) 11/16/24 07:49 MCH 33.5 pg (27.0-35.0) 11/16/24 07:49 MCHC 34.4 g/dL (32.0-36.0) 11/16/24 07:49 RDW 16.4 % (12.1-15.2) H 11/16/24 07:49 Plt Count 316 thou/uL (152-406) 11/16/24 07:49 MPV 8.2 fL (7.6-11.3) 11/16/24 07:49 Neutrophils % 70.0 % (41.7-73.7) 11/16/24 07:49 Lymphocytes % 18.8 % (15.3-44.8) 11/16/24 07:49 Monocytes % 7.5 % (3.3-12.3) 11/16/24 07:49 Eosinophils % 2.7 % (0-4.4) 11/16/24 07:49 Basophils % 1.0 % (0-1.3) 11/16/24 07:49 Absolute Neutrophils 2.4 K/uL (1.8-8.0) 11/16/24 07:49 Segmented Neutrophils 83 % (40-80) H 11/04/24 04:33 Absolute Lymphocytes 0.7 K/uL (0.7-4.9) 11/16/24 07:49 Lymphocytes 12 % (15-42) L 11/04/24 04:33 Monocytes 5 % (0-10) 11/04/24 04:33 Absolute Monocytes 0.3 K/uL (0.1-1.3) 11/16/24 07:49 Absolute Eosinophils 0.1 K/uL (0-0.5) 11/16/24 07:49 Absolute Basophils 0.0 K/uL (0-0.5) 11/16/24 07:49 Platelet Estimate Adeq 11/04/24 04:33 Morphology Comment Not seen (NOT SEEN) 11/04/24 04:33 Sodium 137 mEq/L (136-145) 11/16/24 07:49 Potassium 4.2 mEq/L (3.5-5.1) 11/16/24 07:49 Chloride 102 mEq/L (98-107) 11/16/24 07:49 Carbon Dioxide 31 mEq/L (21-32) 11/16/24 07:49 Anion Gap 8.2 mEq/L (5.0-15.0) 11/16/24 07:49 BUN 13 mg/dL (7-18) 11/16/24 07:49 Creatinine 0.51 mg/dL (0.70-1.30) L 11/16/24 07:49 Est GFR (CKD-EPI) 106 ml/min (=/>90) 11/16/24 07:49 Glucose 96 mg/dL (74-106) 11/16/24 07:49 Lactic Acid < 0.8 mmol/L (0.4-2.0) 11/08/24 05:46 Calcium 9.2 mg/dL (8.5-10.1) 11/16/24 07:49 Magnesium 1.9 mg/dL (1.6-2.4) 11/16/24 07:49 Total Bilirubin 0.4 mg/dL (0.2-1.0) 11/16/24 07:49 AST 17 U/L (15-37) 11/16/24 07:49 ALT 24 U/L (16-61) 11/16/24 07:49 Alkaline Phosphatase 185 U/L (45-117) H 11/16/24 07:49 Serum Total Protein 6.8 g/dL (6.4-8.2) 11/16/24 07:49 Albumin 3.9 g/dL (3.4-5.0) 11/16/24 07:49 Globulin 2.9 g/dL (2.3-3.5) 11/16/24 07:49 Albumin/Globulin Ratio 1.3 (1.1-1.8) 11/16/24 07:49 Prealbumin 27.1 mg/dL (20-40) 11/16/24 07:49 Procalcitonin < 0.05 ng/mL (<0.50) 11/08/24 05:46 Urine Color Light-yellow (Yellow) 11/05/24 11:15 Urine Clarity Extremely turbid (Clear) H 11/05/24 11:15 Urine pH 6.5 (5.0-7.0) 11/05/24 11:15 Ur Specific [place] 1.012 (1.005-1.030) 11/05/24 11:15 Glucose (UA)(Auto) Negative (Negative) 11/05/24 11:15 Urine Ketones Negative (Negative) 11/05/24 11:15 Urine Blood Negative (Negative) 11/05/24 11:15 Urine Nitrite Negative (Negative) 11/05/24 11:15 Urine Bilirubin Negative (Negative) 11/05/24 11:15 Urine Urobilinogen 1+ (Normal) H 11/05/24 11:15 Ur Leukocyte Esterase 500 Orbb/uL (Negative) H 11/05/24 11:15 Urine RBC None seen /HPF (None Seen) 11/05/24 11:15 Urine WBC 20-50 /HPF (<5) H 11/05/24 11:15 Urine WBC Clumps Occasional /HPF (None Seen) H 11/05/24 11:15 Ur Squamous Epith Cells <5 /HPF (None Seen) 11/05/24 11:15 U Non-Squamous Epi Cells <5 /HPF (None Seen) 11/05/24 11:15 Unidentified Crystals Few /HPF (None Seen) 11/05/24 11:15 Urine Bacteria <20 /HPF (<20) 11/05/24 11:15 Urine Mucus Slight /HPF (None Seen) 11/05/24 11:15 Urine Yeast (Budding) Few /HPF (None Seen) H 11/05/24 11:15 Urine Culture Reflexed Reflexed 11/05/24 11:15 Urine Total Protein Negative (Negative) 11/05/24 11:15 Weight: 165 lb Wound Present: No Closed Surgical Incision Present: Yes Negative Pressure Wound Therapy Present: No Physician Update: Labs reviewed and are stable. He need [facility] for home discharge in the AM. His works well with him. BIMS 14, SLUMS 21, poor short term memory. Will follow up with surgeon Dr. Miles. Independent bed mobility. SBA for pivot transfers. RW 40' with min assist. WC 200' independently. With OT has training. Mod assist for dressing his lower body and footwear. Summary: Patient's care plan and shelter goals have been reviewed and revised as necessary. Please see the Rehabilitation Signature page for all necessary signatures.
[2024-11-16 22:13] VITALS: O2SAT 98
--- NOTE | 2024-11-17 00:26 | PN ---
Date of Progress Note: 11/16/2024 Subjective: The patient was seen this morning for followup. No new complaints or problems reported by him. He was lying in bed, not in distress. Objective: Vital Signs: Reviewed. HEENT: Unremarkable. Lungs: Clear to auscultation. Heart: Sounds normal. Abdomen: Soft. Bowel sounds normal. No guarding, rigidity, tenderness, distention. Extremities: No leg edema. Laboratory Data: WBC 3.8, hemoglobin 9.8, platelets 283. Sodium 136, potassium 4.1, chloride 102, b icarb 30, BUN 15, creatinine 0.40, glucose 114, magnesium level 0.7 and I really did not believe this particular blood work results, so I asked nursing staff to redraw blood to run another blood test an d that result has shown normal magnesium level. Clinically, there is no reason for the patient to maldonado ve extremely low magnesium level as reported on earlier blood work, which I believe was a lab error. Impression: 1. Right hip fracture. 2. Hypertension. 3. Hyperlipidemia. 4. Coronary artery disease. Plan: We will continue current medication. Continue physical therapy under guidance of Dr. Schuster and I will see him tomorrow for followup. He is scheduled to go home tomorrow. JESS/MODL Voice ID: [id number] Report ID: [id number]
[2024-11-17 08:38] VITALS: BP 152/62
[2024-11-17 08:51] VITALS: TEMP 98
--- NOTE | 2024-11-17 12:06 | DS ---
Date of Discharge: 11/17/2024 Disposition: Discharged to go home. Physical Examination: HEENT: Unremarkable. Lungs: Clear to auscultation. Heart: Sounds normal. Abdomen: Soft. Bowel sounds normal. No guarding, rigidity, tenderness, distention. Extremities: No leg edema. Discharge Medications And Instructions: 1. . 2. . Discharge Diagnoses: 1. Right hip intertrochanteric fracture. 2. . 3. . Laboratory Data: Upon admission, WBC 4.7, hemoglobin 8, platelets 298. Sodium 137, potassium 4, chl oride 104, bicarb 28, BUN 16, creatinine 0.38, glucose 98. Last blood work from yesterday, WBC 3.5, hemoglobin 10.8, platelets 316. Sodium 137, potassium 4.2, chloride 102, bicarb 31, BUN 13, creatini ne 0.51, glucose 96. Liver function tests unremarkable. Magnesium 1.9. Serum albumin 3.9. Hospital Course: This is a 73-year-old male patient, who had right hip fracture and had surgery done at outside hospital, was brought into our inpatient rehab. The patient was admitted to hospital on 11/03/2024. Dr. Schuster from Neurology was consulted who managed the patient's rehab therapy. Medi elizabeth, he was stable. He did have urinary tract infection which was treated with antibiotic Levaquin . Urine culture did not grow anything and after 7 or 8 days of antibiotic therapy, Levaquin was disc ontinued. The patient requires intermittent bladder catheterization, which his has been doing i t for fairly long time. His other chronic medical problems remained stable. Today, he was determined stable for discharge from rehab point of view. Medically, he was s table for discharge. JESS/MODL Voice ID: [id number] Report ID: [id number]
[2024-11-30] MEDS ORDERED: CYANOCOBALAMIN 1000MCG/ML INJ IM SCH (09:00)
== END 2024-11-17 11:45 | disposition home or self-care (01) | DRG 560 ==
LOC: 5TH 19:20
PROVIDERS: ADMIT Internal Medicine; ATTEND Internal Medicine
DX: S72.141D Displaced intertrochanteric fracture of right femur, subsequent encounter for closed fracture with routine healing (principal); D62 Acute posthemorrhagic anemia; E87.1 Hypo-osmolality and hyponatremia; N39.0 Urinary tract infection, site not specified; G35 Multiple sclerosis; R53.1 Weakness; M62.838 Other muscle spasm; R48.2 Apraxia; G40.909 Epilepsy, unspecified, not intractable, without status epilepticus; M25.561 Pain in right knee; G62.9 Polyneuropathy, unspecified; I10 Essential (primary) hypertension; I25.10 Atherosclerotic heart disease of native coronary artery without angina pectoris; E78.5 Hyperlipidemia, unspecified; G47.33 Obstructive sleep apnea (adult) (pediatric); D50.9 Iron deficiency anemia, unspecified; N31.9 Neuromuscular dysfunction of bladder, unspecified; G50.0 Trigeminal neuralgia; I25.2 Old myocardial infarction; N40.1 Benign prostatic hyperplasia with lower urinary tract symptoms; R33.8 Other retention of urine; E03.9 Hypothyroidism, unspecified; I95.9 Hypotension, unspecified; K59.00 Constipation, unspecified; Z86.73 Personal history of transient ischemic attack (TIA), and cerebral infarction without residual deficits; Z91.81 History of falling; Z87.440 Personal history of urinary (tract) infections; Z95.5 Presence of coronary angioplasty implant and graft; Z87.891 Personal history of nicotine dependence
CPT/HCPCS: 36415; 71045; 80048; 80053; 81001; 81003; 82040; 83605; 83735; 84134; 84145; 85025; 87086; 87088; 92523; 93970; 94010; 94640; 97010; 97110; 97116; 97129; 97161; 97165; 97530; 97542; J2003; J7613